=== PATIENT | female | born 1965 | race Caucasian/White ===

== ENCOUNTER → 2020-07-15 11:39 | Outpatient (BNVA) | payer MEDICAID, SELFPAY | PROVIDERS: PCP Nurse Practitioner Family; Referring Provider Nurse Practitioner Family; Visit Provider Nurse Practitioner Gerontology | DX: Z76.89 Persons encountering health services in other specified circumstances (principal) ==

== ENCOUNTER 2020-09-09 11:06 | Emergency (ER) | payer MEDICAID, SELFPAY ==
[2020-09-09 11:13] VITALS: BP 105/66; PULSE 75; RESP 15; TEMP 36.3; O2SAT 99; BMI 47.0
--- NOTE | 2020-09-09 11:26 | ECG_ITS ---
Test Reason : WEAKNESS Blood Pressure : / mmHG Vent. Rate : 077 BPM Atrial Rate : 077 BPM P-R Int : 166 ms QRS Dur : 084 ms QT Int : 424 ms P-R-T Axes : 056 008 008 degrees QTc Int : 479 ms Normal sinus rhythm Normal ECG No previous ECGs available Referred By: Luz Meade Electronically Signed By:Tommy Gautam
--- NOTE | 2020-09-09 11:26 | XR_ITS ---
EXAMINATION: XR CHEST CLINICAL INFORMATION: Weakness. COMPARISON: Chest radiographs 05/23/2020, 02/10/2019 TECHNIQUE: Portable upright AP view of the chest was obtained. FINDINGS: There are low lung volumes with inspiration to the seventh posterior ribs. There are hypoventilatory changes at the bases and faint increased attenuation lower zones most likely related to overlying soft tissues. There is no lobar or segmental airspace consolidation or definite groundglass opacity or effusion. Prominent cardiopericardial silhouette is similar to prior exams. The hilar and mediastinal contours and bony structures are unremarkable. XR/XR chest 1V IMPRESSION: Low lung volumes. Lungs grossly clear.
--- NOTE | 2020-09-09 11:31 | ED.WEAKNESS ---
HPI - Weakness General Chief complaint: Weakness Stated complaint: lethargy Time Seen by Provider: 09/09/20 11:17 Source: patient Mode of arrival: EMS Limitations: no limitations History of Present Illness HPI Narrative: 55 yo female with past medical history of anxiety, asthma, depression, Diabetes mellitus type 2, epilepsy, hypertension, gender dysphoria, tremor, hyperlipidemia, morbid obesity, VELASQUEZ on CPAP, anxiety here with complaints of lethargy. Per nurse, the LOADER OPERATOR/GROUND LEADER went to visit the patient this morning. The patient ambulated to open the door for her. The LOADER OPERATOR/GROUND LEADER noted the patient to be lethargic and checked her blood pressure and it was 80/60. She called EMS who checked the patient's blood pressure and it was 90/60. The patient tells me she feels malaise and lethargic. She denies any other complaints. MD Complaint: generalized weakness and lack of energy Onset (ago): day(s) Duration: constant Location: generalized Migration: none Severity: mild Relieving factors: none Exacerbating factors: none Associated symptoms: denies other symptoms Related Data Home Medications Medication Instructions Recorded Confirmed albuterol sulfate [Proventil HFA] 1 puff INHALATION QID PRN 07/14/20 07/14/20 aripiprazole 5 mg PO BID 07/14/20 07/14/20 atorvastatin 40 mg PO DAILY 07/14/20 07/14/20 cholecalciferol (vitamin D3) 50 mcg PO DAILY 07/14/20 07/14/20 [Vitamin D3] clonazepam 0.5 mg PO BID 07/14/20 07/14/20 fluticasone propionate [Flovent] 1 puff INHALATION Q12H 07/14/20 07/14/20 hydrochlorothiazide 25 mg PO DAILY 07/14/20 07/14/20 lamotrigine 100 mg PO BID 07/14/20 07/14/20 lidocaine 1 patch TOPICAL DAILY 07/14/20 07/14/20 lisinopril 20 mg PO DAILY 07/14/20 07/14/20 [id number] acid 1 tab PO DAILY 07/14/20 07/14/20 [Multi Complete with Iron] prazosin 2 mg PO BEDTIME 07/14/20 07/14/20 topiramate 100 mg PO BID 07/14/20 07/14/20 Previous Rx's Medication Instructions Recorded insulin degludec 200 unit/mL (3 20 unit SUBCUT DAILY #9 ml 08/02/20 mL) subcutaneous pen metformin 1,000 mg tablet 1,000 mg PO BID #60 tab 08/11/20 cefuroxime axetil 250 mg PO BID 7 Days #14 tab 09/09/20 Allergies Allergy/AdvReac Type Severity Reaction Status Date / Time No Known Allergies Allergy Verified 08/09/20 15:11 Review of Systems Review of Systems: Yes all other systems are reviewed and are negative Constitutional: Constitutional: Reports no additional constitutional complaints, Denies body ache(s), Denies chills, Denies fever(s), Denies headache(s) and Reports weakness Eyes: Eyes: Reports no additional eye complaints and Denies change in vision ENT: Reports system reviewed and no additional complaints, except as documented, Denies dizziness, Denies headache(s), Denies nasal congestion, Denies nasal discharge and Denies neck pain Cardiovascular: Cardiovascular: Reports no additional cardiovascular complaints, Denies chest pain, Denies leg edema and Denies dyspnea Respiratory: Respiratory: Reports no additional respiratory complaints, Denies cough and Denies dyspnea Gastrointestinal: Gastrointestinal: Reports no additional gastrointestinal complaints, Denies abdominal pain, Denies diarrhea, Denies nausea and Denies vomiting Genitourinary: Genitourinary: Reports no additional female genitourinary complaints and Denies urinary incontinence Musculoskeletal: Musculoskeletal: Reports no additional musculoskeletal complaints, Denies back pain, Denies arthralgias, Denies joint swelling, Denies neck pain, Denies numbness and Denies tingling Integumentary/Breasts: Skin/Breast: Reports system reviewed and no additional complaints, except as docu and Denies rash Neurologic: Reports system reviewed and no additional complaints, except as documented, Denies Abnormal speech present, Denies dizziness, Denies headache(s), Denies numbness, Denies tingling and Reports weakness PMFSH Past Medical History Attestation statement: The following information was validated with the patient. Source: old records reviewed and nursing notes reviewed Medical History Anxiety Asthma Depression Diabetes mellitus type 2, controlled, without complications Epilepsy Essential hypertension Gender dysphoria History of tremor Hyperlipidemia LDL goal <100 Hypertension Illiterate Morbid obesity due to excess calories VEALSQUEZ on CPAP Panic attacks Surgical History History of esophagogastroduodenoscopy (EGD) Hx of laparoscopic gastric banding Family History Family History Father CVD (cardiovascular disease) Mother No problems noted. Social History Social History Smoking Status: Never smoker Use of substances other than those prescribed or required for medical reasons: No Advance Directives: No Advance Directives Information Provided: No Physical Exam Vital Signs: Vital Signs: Last Vital Signs Temp 97.4 F 09/09/20 11:13 Pulse 78 09/09/20 15:25 Resp 18 09/09/20 15:25 BP 114/72 09/09/20 15:25 Pulse Ox 98 09/09/20 15:25 Body Mass Index 47.0 Const: General: cooperative, healthy appearing, comfortable and no acute distress Orientation/consciousness: patient oriented x3 Limitations: no limitations HENMT: Head: Yes normal to inspection Ears: hearing grossly normal bilaterally General nose exam: Normal external nose present Face and sinus: Yes normal facial exam Mouth: Normal oral and palatal mucosa present Throat: Yes posterior oropharynx normal Eyes: General: appearance normal, both eyes and all related structures Pupils: Equal, round and reactive pupils present Neck: Neck: Yes normal visual inspection Chest: Chest palpation & inspection: normal inspection of the chest Resp: Effort & Inspection: normal respiratory effort Auscultation: clear to auscultation bilaterally Cardio: Rate: regular rate Rhythm: regular rhythm Peripheral pulses: Peripheral pulses 2+ throughout GI: Inspection: Yes normal to inspection Palpation (GI): Soft to palpation and nontender Auscultation: normal bowel sounds Back/Spine/Pelvis: Thoracic/Lumbar Spine: thoracic and lumbar spine normal to inspection Skin: General skin exam: no rashes or lesions noted Neuro: General: patient oriented x3, no focal motor deficits, normal sensation to monofilament and Unable to assess gait Cranial nerves: Yes CN's II-XII intact bilaterally, Yes Equal, round and reactive pupils present, Yes Bilaterally intact EOM present, Yes Nystagmus not present, Yes Normal facial strength present and Yes Midline tongue present Cognition (Neuro): normal cognition Speech: No Abnormal speech present Gait exam (Neuro): Unable to assess gait Motor exam (neuro): 5/5 motor strength present throughout (4/5 strength in all 4 extremities. Diffuse weakness) and Normal motor muscle tone present throughout Extrem: General: Yes normal to inspection, Yes no pedal edema and Yes no calf tenderness Course Course Course Narrative: 55-year-old female here with lethargy, generalized weakness times several days. Noted to be hypotensive by LOADER OPERATOR/GROUND LEADER 80/60 at home. Normotensive here. No other complaints. Normal neurological exam with no deficits. Will check labs, EKG, chest x-ray, UA, COVID test. 1430-labs, EKG, chest x-ray, COVID test all unremarkable. UA is pending. Orthostatics were negative. Nursing spoke to the LOADER OPERATOR/GROUND LEADER. Apparently there have been some medication changes for some of her medications they think this may be related. She has been this way for several days to weeks. Unclear which medications have been changed and the patient is unable to provide a clear history. Her episode of hypotension may be secondary to her being overmedicated at home. This is not from an underlying infection. 1600-UA is consistent with a UTI. Patient ambulated to the bathroom with a steady gait. She is alert and answering questions. Recommended follow-up with her primary care doctor as her medications might need to be adjusted further. Reviewed worrisome signs and symptoms and when to return to the emergency department. Comfortable discharge home. MDM - Weakness Medical Records Attestation: I reviewed the patient's medical records. Lab Data Attestation: I reviewed the patient's lab results. Result diagrams: 09/09/20 11:35 09/09/20 11:35 Labs: Lab Results 09/09/20 09/09/20 09/09/20 Range/Units 11:35 11:35 11:35 WBC 9.3 (4.8-10.8) X10*3/uL RBC 4.30 (4.20-5.50) X10*6/uL Hgb 11.5 L (12.0-16.0) g/dl Hct 37.2 (37-47) % MCV 86.5 (80-98) fL MCH 26.7 L (27.0-33.0) pg MCHC 30.9 L (31.0-35.0) g/dl RDW 13.2 (11.0-16.0) % Plt Count 347 (160-400) X10*3/uL MPV 9.6 (9.4-12.3) fL Immature Gran % (Auto) 0.5 H (0.0-0.4) % Neut % (Auto) 65.1 (45-73) % Lymph % (Auto) 24.5 (20-40) % [place] % (Auto) 6.5 (2-11) % Eos % (Auto) 3.0 (0-4) % Baso % (Auto) 0.4 (0-2) % Lymph # (Auto) 2.3 (1.2-4.9) X10*3/uL [place] # (Auto) 0.6 (0.1-1.2) X10*3/uL Eos # (Auto) 0.3 (0.0-0.4) X10*3/uL Baso # (Auto) 0.0 (0.0-0.2) X10*3/uL Abs Immat Gran (auto) 0.05 H (0.00-0.03) X10*3/uL Absolute Neuts (auto) 6.0 (2.0-8.3) X10*3/uL Absolute Nucleated RBC 0.000 (0.0-0.012) X10*3/uL Nucleated RBC % (auto) 0.0 (0.0-0.2) /100WBC PT 11.6 (10.8-13.0) SEC INR 1.0 (0.9-1.1) Sodium 141 (135-145) mmol/L Potassium 4.8 (3.3-5.1) mmol/l Chloride 102 (96-108) mmol/L Carbon Dioxide 26 (22-29) mmol/L Anion Gap 18 (12-20) BUN 21 H (9-16) mg/dL Creatinine 1.30 (0.5-1.4) mg/dL Estim Creat Clear Calc 53.5 Estimated GFR 42 Random Glucose 209 H (60-115) mg/dL Calcium 8.9 (8.4-10.2) mg/dL Magnesium 2.0 (1.6-2.6) mg/dL Urine Color Urine Appearance Urine pH (5.0-8.0) Ur Specific [place] (1.005-1.025) Urine Protein (NEG-TRACE) MG/DL Urine Glucose (UA) (NEG) MG/DL Urine Ketones (NEG) MG/DL Urine Blood (NEG) Urine Nitrite (NEG) Ur Leukocyte Esterase (NEG) Urine RBC (0) /HPF Urine WBC (0-4) /HPF Ur Squamous Epith Cells /LPF Urine Bacteria /LPF Coronavirus (PCR) (Negative) Influenza Type A (PCR) (Negative) Influenza Type B (PCR) (Negative) RSV RNA Qual (PCR) (Negative) 09/09/20 09/09/20 Range/Units 11:35 15:27 WBC (4.8-10.8) X10*3/uL RBC (4.20-5.50) X10*6/uL Hgb (12.0-16.0) g/dl Hct (37-47) % MCV (80-98) fL MCH (27.0-33.0) pg MCHC (31.0-35.0) g/dl RDW (11.0-16.0) % Plt Count (160-400) X10*3/uL MPV (9.4-12.3) fL Immature Gran % (Auto) (0.0-0.4) % Neut % (Auto) (45-73) % Lymph % (Auto) (20-40) % [place] % (Auto) (2-11) % Eos % (Auto) (0-4) % Baso % (Auto) (0-2) % Lymph # (Auto) (1.2-4.9) X10*3/uL [place] # (Auto) (0.1-1.2) X10*3/uL Eos # (Auto) (0.0-0.4) X10*3/uL Baso # (Auto) (0.0-0.2) X10*3/uL Abs Immat Gran (auto) (0.00-0.03) X10*3/uL Absolute Neuts (auto) (2.0-8.3) X10*3/uL Absolute Nucleated RBC (0.0-0.012) X10*3/uL Nucleated RBC % (auto) (0.0-0.2) /100WBC PT (10.8-13.0) SEC INR (0.9-1.1) Sodium (135-145) mmol/L Potassium (3.3-5.1) mmol/l Chloride (96-108) mmol/L Carbon Dioxide (22-29) mmol/L Anion Gap (12-20) BUN (9-16) mg/dL Creatinine (0.5-1.4) mg/dL Estim Creat Clear Calc Estimated GFR Random Glucose (60-115) mg/dL Calcium (8.4-10.2) mg/dL Magnesium (1.6-2.6) mg/dL Urine Color YELLOW Urine Appearance HAZY Urine pH 6.0 (5.0-8.0) Ur Specific [place] >= 1.030 H (1.005-1.025) Urine Protein NEG (NEG-TRACE) MG/DL Urine Glucose (UA) NEG (NEG) MG/DL Urine Ketones NEG (NEG) MG/DL Urine Blood NEG (NEG) Urine Nitrite POS H (NEG) Ur Leukocyte Esterase NEG (NEG) Urine RBC 0 (0) /HPF Urine WBC 10-14 H (0-4) /HPF Ur Squamous Epith Cells 1+ /LPF Urine Bacteria 2+ /LPF Coronavirus (PCR) NEGATIVE (Negative) Influenza Type A (PCR) NEGATIVE (Negative) Influenza Type B (PCR) NEGATIVE (Negative) RSV RNA Qual (PCR) NEGATIVE (Negative) Imaging Data Chest x-ray: Attestation: I personally reviewed and interpreted this imaging study as follows: Radiologist's impression: CLINICAL INFORMATION: Weakness. COMPARISON: Chest radiographs 05/23/2020, 02/10/2019 TECHNIQUE: Portable upright AP view of the chest was obtained. FINDINGS: There are low lung volumes with inspiration to the seventh posterior ribs. There are hypoventilatory changes at the bases and faint increased attenuation lower zones most likely related to overlying soft tissues. There is no lobar or segmental airspace consolidation or definite groundglass opacity or effusion. Prominent cardiopericardial silhouette is similar to prior exams. The hilar and mediastinal contours and bony structures are unremarkable. XR/XR chest 1V IMPRESSION: Low lung volumes. Lungs grossly clear. ECG Data Attestation: I personally reviewed and interpreted this ECG as follows: ECG interpretation date: 01/08/21 ECG interpretation time: 11:44 Interpretation: Normal sinus rhythm, rate of 77, normal MN, normal QRS, normal QT Discharge Plan Discharge Clinical Impression: Weakness UTI (urinary tract infection) Qualifiers: Urinary tract infection type: acute cystitis Hematuria presence: without hematuria Qualified Code(s): N30.00 - Acute cystitis without hematuria Patient Disposition: Home, Self-Care Instructions: Urinary Tract Infection in Women (ED), Weakness (ED) Additional Instructions: There have been reports that her medications have been adjusted recently. This may be contributing to her weakness. It is recommended that you follow-up with a primary care doctor to discuss her medications as this might need to be adjusted. Start her antibiotics tomorrow morning for her UTI Increase fluids, rest Change positions slowly Prescriptions: New cefuroxime axetil 250 mg tablet 250 mg PO BID 7 Days Qty: 14 RF: 0 No Action Tresiba FlexTouch U-200 200 unit/mL (3 mL) insulin pen 20 unit SUBCUT DAILY Qty: 9 RF: 2 metformin 1,000 mg tablet 1,000 mg PO BID Qty: 60 RF: 2 lisinopril 20 mg Tablet 20 mg PO DAILY RF: 0 atorvastatin 40 mg Tablet 40 mg PO DAILY RF: 0 clonazepam 0.5 mg Tablet 0.5 mg PO BID RF: 0 lidocaine 5 % Adhesive Patch,Medicated 1 patch TOPICAL DAILY RF: 0 hydrochlorothiazide 25 mg Tablet 25 mg PO DAILY RF: 0 albuterol sulfate [Proventil HFA] 90 mcg/actuation Hfa Aerosol Inhaler 1 puff INHALATION QID PRN (Reason: Wheezing) RF: 0 topiramate 100 mg Tablet 100 mg PO BID RF: 0 lamotrigine 100 mg Tablet 100 mg PO BID RF: 0 prazosin 2 mg Capsule 2 mg PO BEDTIME RF: 0 Flovent 110 mcg/actuation Hfa Aerosol Inhaler 1 puff INHALATION Q12H RF: 0 aripiprazole 5 mg Tablet 5 mg PO BID RF: 0 cholecalciferol (vitamin D3) [Vitamin D3] 50 mcg (2,000 unit) Capsule 50 mcg PO DAILY RF: 0 Multi Complete with Iron 18-400 mg-mcg Tablet 1 tab PO DAILY RF: 0 Referrals: [facility] [Primary Care Provider] - 2 days
[2020-09-09 11:48] LABS: Basophils Percent Auto 0.4 % (0-2); Eosinophils Absolute Auto 0.3 X10*3/uL (0.0-0.4); Hematocrit 37.2 % (37-47); Hemoglobin 11.5 g/dl (12.0-16.0); Imm Gran Abs Auto 0.05 X10*3/uL (0.00-0.03); Imm Gran Pct Auto 0.5 % (0.0-0.4); Lymphocytes Absolute Auto 2.3 X10*3/uL (1.2-4.9); Lymphocytes Percent Auto 24.5 % (20-40); MANUAL DIFF FLAG NO; Mean Corpuscular HGB Conc 30.9 g/dl (31.0-35.0); Mean Corpuscular Hemoglobin 26.7 pg (27.0-33.0); Mean Corpuscular Volume 86.5 fL (80-98); Mean Platelet Volume 9.6 fL (9.4-12.3); Monocytes Absolute Auto 0.6 X10*3/uL (0.1-1.2); Monocytes Percent Auto 6.5 % (2-11); Neutrophils Percent Auto 65.1 % (45-73); Platelet Count 347 X10*3/uL (160-400); Red Cell Distribution Width 13.2 % (11.0-16.0); White Blood Count 9.3 X10*3/uL (4.8-10.8)
[2020-09-09 11:53] VITALS: BP 96/57; PULSE 78
[2020-09-09 11:54] VITALS: BP 114/73; PULSE 83
[2020-09-09] MEDS: 0.9 % Sodium Chloride 1,000 ML 999 ML IVCONT (11:56)
[2020-09-09 12:00] VITALS: BP 114/73; PULSE 78; RESP 16; O2SAT 96
[2020-09-09 12:02] LABS: Prothrombin Time 11.6 SEC (10.8-13.0)
[2020-09-09 12:24] LABS: Anion Gap 18 (12-20); Blood Urea Nitrogen 21 mg/dL (9-16); Calcium 8.9 mg/dL (8.4-10.2); Carbon Dioxide 26 mmol/L (22-29); Chloride 102 mmol/L (96-108); Creatinine Clr Calc Pharmacy 53.5; Estimated Glomerular Filt Rate 42; Glucose Random 209 mg/dL (60-115); Potassium 4.8 mmol/l (3.3-5.1); Sodium 141 mmol/L (135-145)
[2020-09-09 12:40] LABS: Influenza A PCR NEGATIVE (Negative); Influenza B PCR NEGATIVE (Negative); Resp Syncy Virus RNA Qual PCR NEGATIVE (Negative); SARS COV2 PCR INHOUSE NEGATIVE (Negative)
[2020-09-09 13:21] VITALS: BP 94/53; PULSE 72; RESP 16; O2SAT 96
--- NOTE | 2020-09-09 13:21 | PC.NURSE ---
COMMUNITY LIAISON Mike Rodrigues contact [phone]
--- NOTE | 2020-09-09 15:23 | PC.NURSE ---
Ambulatory with tech, slow but steady on feet. Urine to be collected
[2020-09-09 15:25] VITALS: BP 114/72; PULSE 78; RESP 18; O2SAT 98
[2020-09-09 15:37] LABS: Glucose Urine UA NEG (NEG); Leukocyte Esterase Urine NEG (NEG); Nitrite Urine POS (NEG); Specific Gravity - Urine >= 1.030 (1.005-1.025); Urine Blood NEG (NEG); Urine Ketones NEG (NEG); Urine Protein NEG (NEG-TRACE)
[2020-09-09 15:38] LABS: Appearance Urine HAZY; Color Urine YELLOW
[2020-09-09 15:49] LABS: Bacteria Urine 2+ /LPF; RBC Urine 0 /HPF (0); Squamous Epithelial Cell Urine 1+ /LPF
[2020-09-13 09:21] LABS: Glucose, Whole Blood 220 mg/dL (60-115)
== END 2020-09-09 16:48 | disposition home or self-care (01) ==
PROVIDERS: Nurse Practitioner Family; Emergency Provider Emergency Medicine
DX: N30.00 Acute cystitis without hematuria (principal); R53.1 Weakness; I10 Essential (primary) hypertension; Z20.828 Contact with and (suspected) exposure to other viral communicable diseases; Z79.899 Other long term (current) drug therapy
CPT/HCPCS: 0241U; 36415; 71045; 80048; 81001; 82947; 83735; 85025; 85610; 87086; 87088; 87186; 93005; 96360; 99284

== ENCOUNTER → 2020-12-12 11:57 | Outpatient (BNVA) | payer MEDICAID, SELFPAY | PROVIDERS: PCP Nurse Practitioner Family; Referring Provider Nurse Practitioner Family; Visit Provider Nurse Practitioner Gerontology ==

== ENCOUNTER 2021-01-06 16:16 | Outpatient (REF) | payer MEDICAID, SELFPAY ==
--- NOTE | ~2021-01-06 | XR_ITS ---
EXAMINATION: XR LUMBOSACRAL SPINE WITH OBLIQUES CLINICAL INFORMATION: Back pain COMPARISON: None TECHNIQUE: AP, both oblique, and lateral views of the lumbar spine. Lateral view of the lumbosacral junction. FINDINGS: Bone alignment is normal. No fracture or dislocation is seen. There is multilevel degenerative spondylosis. There is degenerative disc disease at L4-L5 and L5-S1. There is a lower lumbar spine facet arthritis. No pars defect is seen. There is a gastric lap band. XR/XR lumbar spine 4V min IMPRESSION: Degenerative changes.
[2021-01-06 17:29] LABS: Cholesterol 276 mg/dL; HDL Cholesterol 44 mg/dL; Triglycerides 429 mg/dL
[2021-01-06 17:43] LABS: B Type Natriuretic Peptide < 10 pg/mL (<100)
[2021-01-07 05:32] LABS: LDL Cholesterol Direct 162 mg/dL (<100)
[2021-01-07 06:56] LABS: Estimated Average Glucose 243 mg/dL; Hemoglobin A1c % 10.1 %
== END 2021-01-06 16:17 | disposition home or self-care (01) ==
LOC: HO.LAB 16:16
PROVIDERS: Nurse Practitioner Gerontology; PCP Registered Nurse; Visit Provider Internal Medicine
DX: M54.9 Dorsalgia, unspecified (principal); E11.9 Type 2 diabetes mellitus without complications
CPT/HCPCS: 36415; 72110; 80061; 83036; 83721; 83880; 84550

== ENCOUNTER → 2021-01-16 13:40 | Outpatient (BNVA) | payer MEDICAID, SELFPAY | PROVIDERS: PCP Registered Nurse; Visit Provider Nurse Practitioner Gerontology ==

== ENCOUNTER → 2021-02-13 14:16 | Outpatient (BNVA) | payer MEDICAID, SELFPAY | PROVIDERS: PCP Registered Nurse; Visit Provider Dietitian, Registered | DX: E11.65 Type 2 diabetes mellitus with hyperglycemia (principal) | CPT/HCPCS: 97802 ==

== ENCOUNTER → 2021-03-14 13:58 | Outpatient (REF) | payer MEDICAID, SELFPAY ==
--- NOTE | 2021-03-14 14:00 | CA_ITS ---
Transthoracic Echocardiogram Patient (Last, First, Middle): Hilda Mcmahan, Gender: Female Date of : 1965 Age: 55 Procedure Date: 03/14/2021 Procedure Type: Transthoracic Echocardiogram Location: OP Height: 152.4 cm Weight: 129.28 kg BSA: 2.17 m2 Heart Rate: bpm BP: 106 / 68 mmHg Consultant Intern: Referring MD: Oz Sahni MD Symptoms: ORTHOPNEA, LEG SWELLING Study Quality: Fair ECG Rhythm: Sinus Conclusions: - The left ventricular systolic function is normal. The visually estimated ejection fraction is between 60-65%. - No obvious valvular pathology seen on this study. Findings Procedure Information Contrast agent, definity, is being given per protocol without apparent complications. The patient receives contrast. Left Ventricle Normal left ventricular cavity size. The left ventricular systolic function is normal. The visually estimated ejection fraction is between 60-65%. The calculated ejection fraction is 64% by biplane method. There is no evidence of regional wall motion abnormalities. Diastolic function is normal for age. Right Ventricle Normal right ventricular cavity size and systolic function. Atria Both atria are normal in size. Aortic Valve There is a normal trileaflet aortic valve. There is no aortic valve stenosis. There is no aortic valve regurgitation. Mitral Valve The mitral valve appears normal. There is no mitral valve regurgitation. There is no mitral valve stenosis. Pulmonic Valve The pulmonic valve was not well visualized. Tricuspid Valve There is trace tricuspid valve regurgitation. The pulmonary artery systolic pressure is normal. Great Vessels The asc aorta and aortic arch are normal in size. Venous The inferior vena cava was not well visualized. Pericardium/Pleural There is no evidence of pericardial effusion. Prior Study Comparison No prior study available for comparison. Recommendations, Care & Conclusions No obvious valvular pathology seen on this study. Measurements 2D Linear Measurements RVIDd: 2.59 RVIDd Index: 1.19 IVSd: 0.95 0.6-0.9/0.6-1.0 cm LVIDd: 4.90 3.9-5.3/4.2-5.9 cm LVIDd Index: 2.26 2.4-3.2/2.2-3.1 cm/m2 LVIDs: 3.59 2.0-3.6 cm LVPWd: 1.30 0.7-1.1 cm Ao Root: 3.10 2.1-3.5 cm LA Diam: 3.40 2.7-3.8/3.0-4.0 cm LAIDs Index: 1.57 1.5-2.3 cm/m2 LV Mass: 257.31 67-162/88-224 g LV Mass Index: 118.58 43-95/49-115 g/m2 LVOT Diam: 2.30 3.0+(-)1.3 cm 2D Systolic Function EF 4C: 65.80 >55% EF 2C: 62.10 >55% EF BiP: 64.40 >55% Mitral Valve MV Pk E: 0.50 MV PK A: 0.56 MV Decel Time: 202.00 E/A: 0.90 E'Lateral: 9.14 E'Medial: 5.44 E/E' Med: 9.10 E/E' Lat: 5.40 Aortic Valve AoV Pk Ridge: 1.31 AoV Mn Ridge: 0.91 AoV VTI: 0.25 AoV Pk Grad: 7.00 Aov Mn Grad: 4.00 FLIP Cont.VTI: 3.66 LVOT LVOT Pk Ridge: 1.03 LVOT Mn Ridge: 0.67 LVOT VTI: 0.22 LVOT Pk Grad: 4.00 LVOT Mn Grad: 2.00 LVOT Diam: 2.30 LVOT Area: 4.15 Diastolic Function MV Pk E: 0.50 MV Pk A: 0.56 E/A: 0.90 E'Medial: 5.44 E/E' Med: 9.10 E' Laterial: 9.14 E/E' Lat: 5.40 Tricuspid Valve TR Pk Ridge: 2.52 TR Pk Grad: 25.00 RA Press: 3.00 RVSP: 28.00 Great Vessels Aorta Ao Root-2D: 3.10 2.0-3.7 cm Ao Asc: 3.00 2.1-3.4 cm Ao Arch: 2.70 Updated in Other Vendor System with Status of Final Baldo Pereyra MD electronically signed on 03/15/2021 12:29:15 PM with status of Final
== END ==
LOC: HO.CARD 13:58
PROVIDERS: Visit Provider Internal Medicine
DX: R06.01 Orthopnea (principal)
CPT/HCPCS: 93306; Q9957

== ENCOUNTER 2021-03-14 15:37 | Emergency (ER) | payer MEDICAID, SELFPAY ==
--- NOTE | ~2021-03-14 | XR_ITS ---
EXAMINATION: XR LUMBAR SPINE XR RIGHT HIP WITH AP PELVIS CLINICAL INFORMATION: Pain. COMPARISON: None TECHNIQUE: AP and frog-leg lateral views of the right hip and an AP view of the pelvis. 3 views of the lumbosacral spine. FINDINGS: Lumbar spine: There is moderate to severe degenerative disc disease in the lower lumbar spine at L4-5 and L5-S1 with prominent osteophytes, loss of vertebral disc height, and vacuum phenomenon. More mild degenerative disc disease is present at other levels in the lower thoracic and lumbar spine. There is prominent facet arthropathy at L5-S1. No acute fractures. Osteoarthritis is present in the SI joints. Laparoscopic gastric band is partially imaged on this study. Pelvis and right hip: Mild osteoarthritis in the hips is characterized by marginal osteophytes and nonuniform joint space narrowing. No fracture or malalignment. Enthesopathic spurring is present at the anterior superior iliac spines and at the greater trochanters. Soft tissues are unremarkable. No osseous lesions. XR/XR hip RT w PEL1V IMPRESSION: Moderate to severe degenerative spondylosis in the lower lumbar spine. No acute osseous findings in the lumbar spine and pelvis/hips. Mild osteoarthritis in the hips.
--- NOTE | ~2021-03-14 | XR_ITS ---
EXAMINATION: XR LUMBAR SPINE XR RIGHT HIP WITH AP PELVIS CLINICAL INFORMATION: Pain. COMPARISON: None TECHNIQUE: AP and frog-leg lateral views of the right hip and an AP view of the pelvis. 3 views of the lumbosacral spine. FINDINGS: Lumbar spine: There is moderate to severe degenerative disc disease in the lower lumbar spine at L4-5 and L5-S1 with prominent osteophytes, loss of vertebral disc height, and vacuum phenomenon. More mild degenerative disc disease is present at other levels in the lower thoracic and lumbar spine. There is prominent facet arthropathy at L5-S1. No acute fractures. Osteoarthritis is present in the SI joints. Laparoscopic gastric band is partially imaged on this study. Pelvis and right hip: Mild osteoarthritis in the hips is characterized by marginal osteophytes and nonuniform joint space narrowing. No fracture or malalignment. Enthesopathic spurring is present at the anterior superior iliac spines and at the greater trochanters. Soft tissues are unremarkable. No osseous lesions. XR/XR lumbar spine 2-3V IMPRESSION: Moderate to severe degenerative spondylosis in the lower lumbar spine. No acute osseous findings in the lumbar spine and pelvis/hips. Mild osteoarthritis in the hips.
--- NOTE | ~2021-03-14 | XR_ITS ---
EXAMINATION: XR KNEE, RIGHT CLINICAL INFORMATION: Right knee pain COMPARISON: None TECHNIQUE: 5 views of the right knee. FINDINGS: Severe tricompartmental degenerative change present most marked in the medial compartment and patellofemoral compartment. Significant joint space narrowing with sclerosis and osteophytes present. No joint effusion or fracture is seen. XR/XR knee RT 4V IMPRESSION: Tricompartmental degenerative changes present as described above. No acute injury or effusion.
[2021-03-14 17:00] VITALS: BP 133/81; PULSE 74; RESP 18; TEMP 36.1; O2SAT 99; BMI 54.6
[2021-03-14 18:22] LABS: MANUAL DIFF FLAG NO
[2021-03-14] MEDS: Acetaminophen 325 MG TABLET 650 MG PO (18:24)
[2021-03-14] MEDS: Ibuprofen 800 MG TABLET PO (18:25)
[2021-03-14 18:46] LABS: Basophils Absolute Auto 0.1 X10*3/uL (0.0-0.2); Basophils Percent Auto 0.4 % (0-2); Eosinophils Absolute Auto 0.5 X10*3/uL (0.0-0.4); Eosinophils Percent Auto 3.7 % (0-4); Hematocrit 40.8 % (37-47); Hemoglobin 12.5 g/dl (12.0-16.0); Imm Gran Abs Auto 0.05 X10*3/uL (0.00-0.03); Imm Gran Pct Auto 0.4 % (0.0-0.4); Lymphocytes Absolute Auto 3.4 X10*3/uL (1.2-4.9); Mean Corpuscular HGB Conc 30.6 g/dl (31.0-35.0); Mean Corpuscular Hemoglobin 25.2 pg (27.0-33.0); Mean Corpuscular Volume 82.3 fL (80-98); Mean Platelet Volume 10.7 fL (9.4-12.3); Monocytes Absolute Auto 0.8 X10*3/uL (0.1-1.2); Monocytes Percent Auto 6.3 % (2-11); Neutrophils Absolute Auto 7.4 X10*3/uL (2.0-8.3); Neutrophils Percent Auto 61.2 % (45-73); Platelet Count 355 X10*3/uL (160-400); Red Blood Count 4.96 X10*6/uL (4.20-5.50); Red Cell Distribution Width 14.5 % (11.0-16.0); White Blood Count 12.1 X10*3/uL (4.8-10.8)
[2021-03-14 18:46] LABS: Alanine Aminotransferase 45 U/L (0-31); Albumin Level 4.4 g/dL (3.5-5.0); Alkaline Phosphatase 70 U/L (39-117); Anion Gap 20 (12-20); Aspartate Amino Transferase 50 U/L (5-31); Bilirubin Total 0.4 mg/dL (0.0-1.0); Blood Urea Nitrogen 26 mg/dL (9-16); Carbon Dioxide 21 mmol/L (22-29); Chloride 105 mmol/L (96-108); Creatinine Clr Calc Pharmacy 54.7; Estimated Glomerular Filt Rate 39; Glucose Random 161 mg/dL (60-115); Lipase 36 U/L (8-78); Potassium 4.7 mmol/L (3.3-5.1); Sodium 141 mmol/L (135-145); Total Protein 8.1 g/dL (6.5-8.0)
--- NOTE | 2021-03-14 18:54 | ED.LOWEXIN ---
HPI - Extremity Injury (Lower) General Chief Complaint: Extremity Injury, Lower Stated Complaint: leg pain Time Seen by Provider: 03/14/21 15:58 Source: patient and family Mode of arrival: wheelchair Limitations: no limitations History of Present Illness HPI Narrative: 55-year-old female with past medical history of diabetes, hypertension, obesity presents the emergency department with right lower extremity pain /right back pain. Patient states this is been ongoing and progressively getting worse for 3 weeks. Patient admits to some increased urinary frequency and foul-smelling urine. Denies any upper back pain denies any abdominal pain denies known fevers or chills denies chest pain or shortness of breath. States she had difficulty ambulating today thus presented to the ED for assessment. No medications taken prior to arrival for pain. Denies any changes in bowel habits denies any numbness and tingling in the genitals or the legs. Patients denies recent/injury or trauma. Related Data Home Medications Medication Instructions Recorded Confirmed albuterol sulfate [Proventil HFA] 1 puff INHALATION QID PRN 07/14/20 01/16/21 cholecalciferol (vitamin D3) 50 mcg PO DAILY 07/14/20 01/16/21 [Vitamin D3] fluticasone propionate [Flovent] 1 puff INHALATION Q12H 07/14/20 01/16/21 lidocaine 1 patch TOPICAL DAILY 07/14/20 01/16/21 lisinopril 20 2 tab PO DAILY 12/12/20 01/16/21 mg-hydrochlorothiazide 25 mg tablet propranolol 60 mg tablet 60 mg PO BID 12/12/20 01/16/21 acetaminophen 325 mg capsule 325 mg PO Q4H PRN cap 01/16/21 01/16/21 cetirizine 10 mg capsule 10 mg PO DAILY PRN 01/16/21 01/16/21 clonazepam 1 mg tablet 1 mg PO BID 01/16/21 01/16/21 gabapentin 300 mg capsule 300 mg PO BEDTIME 01/16/21 01/16/21 Previous Rx's Medication Instructions Recorded insulin degludec 200 unit/mL (3 20 unit SUBCUT DAILY #9 ml 08/02/20 mL) subcutaneous pen metformin 1,000 mg tablet 1,000 mg PO BID #60 tab 08/11/20 atorvastatin 20 mg tablet 20 mg PO BEDTIME #30 tab 01/16/21 dulaglutide 0.75 mg/0.5 mL 0.75 mg SUBCUT QWEEK #6 ml 01/16/21 subcutaneous pen injector acetaminophen [Tylenol] 650 mg PO Q6H PRN #20 tab 03/14/21 ibuprofen 600 mg PO Q6H PRN #20 tab 03/14/21 Allergies Allergy/AdvReac Type Severity Reaction Status Date / Time No Known Allergies Allergy Verified 12/12/20 14:51 Review of Systems Review of Systems: Constitutional : No Weight loss, No Fever, No Chills, No Night Sweats, No Fatigue, No Malaise ENT/Mouth : No Hearing loss, No Ear Pain, No Nasal Congestion, No Sinus Pain, No Hoarseness, No sore throat, No Rhinorrhea, No Swallowing Difficulty Eyes: No Eye Pain, No Swelling, No Redness, No Foreign Body, No Discharge, No Vision Changes Cardiovascular : No Chest Pain, No SOB, No Dyspnea on Exertion, No Orthopnea, No Edema, No Palpitations Respiratory : No Cough, No Sputum, No Wheezing, No Smoke Exposure, No Dyspnea Gastrointestinal : No Nausea, No Vomiting, No Diarrhea, No Constipation, No abdominal Pain, No Hematochezia, No Melena Genitourinary : no irregular bleeding, + Dysuria, + Urinary Frequency, No Hematuria, No Urinary Incontinence, No Urgency, No Flank Pain, No Urinary Flow Changes, No Hesitancy Musculoskeletal : + joint pain, + Myalgias, No Joint Swelling, + back pain Skin : No Skin Lesions, No rash Neuro : No Weakness, No Numbness, No Paresthesias, No Loss of Consciousness, No Dizziness, No Headache Psych : No Anxiety/Panic, No Depression, No SI/HI/AH/VH, No Social Issues, Heme/Lymph: No Bruising, No Bleeding,No Lymphadenopathy Endocrine : No Polyuria, No Polydipsia, No Temperature Intolerance [facility] Past Medical History Attestation statement: The following information was validated with the patient. Source: old records reviewed and obtained from family Medical History Anxiety Asthma Depression Diabetes mellitus type 2, controlled, without complications Epilepsy Essential hypertension Gender dysphoria History of tremor Hyperlipidemia LDL goal <100 Hypertension Illiterate Morbid obesity due to excess calories VELASQUEZ on CPAP Panic attacks Surgical History History of esophagogastroduodenoscopy (EGD) Hx of laparoscopic gastric banding Family History Family History Father CVD (cardiovascular disease) Mother No problems noted. Social History Social History Household Members: None Are you a primary home health care respiratory therapist to a significant other at home: No Do you presently have visiting nurse or other home services: Yes Advance Directives: No Advance Directives Information Provided: Yes Physical Exam Vital Signs: Vital Signs: Last Vital Signs Temp 97.0 F 03/14/21 17:00 Pulse 74 03/14/21 17:00 Resp 18 03/14/21 17:00 BP 133/81 03/14/21 17:00 Pulse Ox 99 03/14/21 17:00 Body Mass Index 54.6 vital signs have been reviewed as normal and appeared to be correct. Blood pressure normal. Heart rate normal. Respiration rate normal. Temperature normal. Oxygen saturation normal. Appearance: Alert. Oriented X3. Mild acute distress. Head: Normal external exam. Normocephalic. Atraumatic. No Negrete signs noted. No raccoon eyes noted Eyes: Conjunctiva and sclera normal. ENT: EAC normal. Moist mucous membranes. No drooling noted. No muffled voice noted. Neck: Normal inspection. Neck supple. FROM. No meningeal signs. CVS: Pulses normal throughout. Respiratory: No respiratory distress. Painless inspiration. No accessory muscle usage noted Abdomen: No visible injury noted. Abdomen soft nondistended nontender Back: Full range of motion noted. mild right-sided paraspinal tenderness no CVA tenderness no midline tenderness noted Skin: Skin warm and dry. Normal skin color. Normal skin turgor. Extremities: No lower extremity edema. limited range of motion of the right lower extremity secondary to pain. Tenderness to palpation of the right anterior knee right lateral thigh right hip and right inguinal region. No posterior calf tenderness no pain or swelling to the distal lower extremity. Good distal pulse. Neuro: Oriented X 3. No motor deficit. No sensory deficit. Course Course Course Narrative: Patient's x-rays, blood work and urinalysis returning without acute findings. Slight bump in liver function tests I feel is more chronic than acute, patient feels improved but asking for something here to help her sleep when she gets home will give single dose of stronger pain meds and discharged home with close outpatient follow-up patient tolerating p.o. and comfortable with discharge. MDM - Extremity Injury (Lower) MDM Narrative Medical decision making narrative: Patient's vital signs are stable and she is afebrile. Patient presenting to the emergency department with reports of right lower extremity /right low back pain in the absence of injury or trauma. Patient states this is been getting worse over the last 3 weeks. Denies fevers or chills. Denies chest pain or shortness of breath. Denies abdominal pain nausea or vomiting. Does admit to increased urinary frequency and foul-smelling urine will obtain urinalysis to ensure the absence of UTI however given the absence of flank involvement lower suspicion for renal stone or pyelonephritis. Will obtain plain films of the right hip, right knee, lumbar spine looking for acute findings will medicate with Motrin. Will check basic blood work in the event patient needs more advanced imaging. No signs of DVT no posterior calf tenderness or swelling do not feel ultrasound is warranted. We will continue to monitor. Lab Data Result diagrams: 03/14/21 18:12 03/14/21 18:13 Labs: Lab Results 03/14/21 03/14/21 03/14/21 Range/Units 18:12 18:13 18:59 WBC 12.1 H (4.8-10.8) X10*3/uL RBC 4.96 (4.20-5.50) X10*6/uL Hgb 12.5 (12.0-16.0) g/dl Hct 40.8 (37-47) % MCV 82.3 (80-98) fL MCH 25.2 L (27.0-33.0) pg MCHC 30.6 L (31.0-35.0) g/dl RDW 14.5 (11.0-16.0) % Plt Count 355 (160-400) X10*3/uL MPV 10.7 (9.4-12.3) fL Immature Gran % (Auto) 0.4 (0.0-0.4) % Neut % (Auto) 61.2 (45-73) % Lymph % (Auto) 28.0 (20-40) % [place] % (Auto) 6.3 (2-11) % Eos % (Auto) 3.7 (0-4) % Baso % (Auto) 0.4 (0-2) % Lymph # (Auto) 3.4 (1.2-4.9) X10*3/uL [place] # (Auto) 0.8 (0.1-1.2) X10*3/uL Eos # (Auto) 0.5 H (0.0-0.4) X10*3/uL Baso # (Auto) 0.1 (0.0-0.2) X10*3/uL Abs Immat Gran (auto) 0.05 H (0.00-0.03) X10*3/uL Absolute Neuts (auto) 7.4 (2.0-8.3) X10*3/uL Absolute Nucleated RBC 0.000 (0.0-0.012) X10*3/uL Nucleated RBC % (auto) 0.0 (0.0-0.2) /100WBC Sodium 141 (135-145) mmol/L Potassium 4.7 (3.3-5.1) mmol/L Chloride 105 (96-108) mmol/L Carbon Dioxide 21 L (22-29) mmol/L Anion Gap 20 (12-20) BUN 26 H (9-16) mg/dL Creatinine 1.40 (0.5-1.4) mg/dL Estim Creat Clear Calc 54.7 Estimated GFR 39 Random Glucose 161 H (60-115) mg/dL Calcium 10.0 D (8.4-10.2) mg/dL Total Bilirubin 0.4 (0.0-1.0) mg/dL AST 50 H (5-31) U/L ALT 45 H (0-31) U/L Alkaline Phosphatase 70 (39-117) U/L Total Protein 8.1 H (6.5-8.0) g/dL Albumin 4.4 (3.5-5.0) g/dL Lipase 36 (8-78) U/L Urine Color YELLOW Urine Appearance CLEAR Urine pH 6.0 (5.0-8.0) Ur Specific [place] 1.020 (1.005-1.025) Urine Protein NEG (NEG-TRACE) MG/DL Urine Glucose (UA) NEG (NEG) MG/DL Urine Ketones NEG (NEG) MG/DL Urine Blood NEG (NEG) Urine Nitrite NEG (NEG) Ur Leukocyte Esterase NEG (NEG) Discharge Plan Discharge Clinical Impression: Acute leg pain Qualifiers: Laterality: right Qualified Code(s): M79.604 - Pain in right leg Back pain Qualifiers: Back pain location: low back pain Chronicity: acute Back pain laterality: right Sciatica presence: with sciatica Sciatica laterality: sciatica of right side Qualified Code(s): M54.41 - Lumbago with sciatica, right side Patient Disposition: Home, Self-Care Instructions: Lumbar Radiculopathy (ED), Leg Pain (ED) Prescriptions: New acetaminophen [Tylenol] 325 mg tablet 650 mg PO Q6H PRN (Reason: pain) Qty: 20 RF: 0 ibuprofen 600 mg tablet 600 mg PO Q6H PRN (Reason: pain) Qty: 20 RF: 0 No Action Tresiba FlexTouch U-200 200 unit/mL (3 mL) insulin pen 20 unit SUBCUT DAILY Qty: 9 RF: 2 metformin 1,000 mg tablet 1,000 mg PO BID Qty: 60 RF: 2 lidocaine 5 % Adhesive Patch,Medicated 1 patch TOPICAL DAILY RF: 0 albuterol sulfate [Proventil HFA] 90 mcg/actuation Hfa Aerosol Inhaler 1 puff INHALATION QID PRN (Reason: Wheezing) RF: 0 Flovent 110 mcg/actuation Hfa Aerosol Inhaler 1 puff INHALATION Q12H RF: 0 cholecalciferol (vitamin D3) [Vitamin D3] 50 mcg (2,000 unit) Capsule 50 mcg PO DAILY RF: 0 lisinopril-hydrochlorothiazide 20-25 mg tablet 2 tab PO DAILY RF: 0 propranolol 60 mg tablet 60 mg PO BID RF: 0 clonazepam 1 mg tablet 1 mg PO BID RF: 0 acetaminophen 325 mg capsule 325 mg PO Q4H PRNRF: 0 gabapentin 300 mg capsule 300 mg PO BEDTIME RF: 0 Allergy Relief (cetirizine) 10 mg capsule 10 mg PO DAILY PRNRF: 0 Trulicity 0.75 mg/0.5 mL pen injector 0.75 mg subcut QWEEK Qty: 6 RF: 1 atorvastatin 20 mg tablet 20 mg PO BEDTIME Qty: 30 RF: 6 Interventions: ED Discharge Assessment Last Done: 03/14/21 19:58 Print Language: Upper Sorbian
[2021-03-14 19:05] LABS: Appearance Urine CLEAR; Color Urine YELLOW; Glucose Urine UA NEG (NEG); Leukocyte Esterase Urine NEG (NEG); Nitrite Urine NEG (NEG); Urine Blood NEG (NEG); Urine Ketones NEG (NEG); Urine Protein NEG (NEG-TRACE)
[2021-03-14] MEDS: oxyCODONE HCl Immed Release 5 MG TABLET PO (19:45)
== END 2021-03-14 19:41 | disposition home or self-care (01) ==
PROVIDERS: Physician Assistant; Emergency Provider Emergency Medicine
DX: M54.41 Lumbago with sciatica, right side (principal); M79.604 Pain in right leg; E11.9 Type 2 diabetes mellitus without complications; I10 Essential (primary) hypertension; E66.9 Obesity, unspecified; Z79.4 Long term (current) use of insulin; Z79.899 Other long term (current) drug therapy
CPT/HCPCS: 36415; 72100; 73502; 73564; 80053; 81003; 83690; 85025; 99283; 99284

== ENCOUNTER → 2021-03-23 11:28 | Outpatient (BNVA) | payer MEDICAID, SELFPAY | PROVIDERS: PCP Registered Nurse; Visit Provider Nurse Practitioner Gerontology | DX: E11.65 Type 2 diabetes mellitus with hyperglycemia (principal); E66.01 Morbid (severe) obesity due to excess calories; I10 Essential (primary) hypertension; E78.5 Hyperlipidemia, unspecified; Z68.43 Body mass index [BMI] 50.0-59.9, adult; Z79.4 Long term (current) use of insulin; Z79.899 Other long term (current) drug therapy | CPT/HCPCS: 82947; 99212 ==

== ENCOUNTER 2021-03-30 11:22 | Outpatient (REF) | payer MEDICAID, SELFPAY ==
--- NOTE | ~2021-03-30 | XR_ITS ---
EXAMINATION: XR HAND, RIGHT CLINICAL INFORMATION: Right hand pain. COMPARISON: None TECHNIQUE: PA, lateral, and oblique views of the right hand. FINDINGS: The bones and soft tissues are normal. No fracture. Alignment is anatomic. Joint spaces are maintained. No erosions or soft tissue calcifications. XR/XR hand RT min 3V IMPRESSION: Unremarkable right hand.
--- NOTE | ~2021-03-30 | XR_ITS ---
EXAMINATION: XR HAND, LEFT CLINICAL INFORMATION: Left hand pain. COMPARISON: None TECHNIQUE: PA, lateral, and oblique views of the left hand. FINDINGS: Mild distal interphalangeal degenerative joint changes are seen. There is no acute fracture or dislocation. The carpal bones are normally aligned. The distal radius and ulna are intact. The soft tissues are unremarkable. XR/XR hand LT min 3V IMPRESSION: Mild distal interphalangeal osteoarthritis.
--- NOTE | ~2021-03-30 | XR_ITS ---
EXAMINATION: XR LUMBOSACRAL SPINE CLINICAL INFORMATION: Low back pain. COMPARISON: 09/14/2020 lumbar spine contrast. TECHNIQUE: Three views of the lumbosacral spine. FINDINGS: Multilevel degenerative disc disease is seen with moderate to severe degenerative disc disease at L4-L5 and L5-S1. The vertebral bodies are intact. There is no acute fracture. Moderate bilateral facet uropathy seen at L5-S1. The soft tissues are unremarkable. XR/XR lumbar spine 2-3V IMPRESSION: Multilevel degenerative changes in the lingula were explained without significant interval change.
[2021-03-30 13:21] LABS: MANUAL DIFF FLAG NO
[2021-03-30 13:31] LABS: Basophils Percent Auto 0.4 % (0-2); Eosinophils Absolute Auto 0.4 X10*3/uL (0.0-0.4); Eosinophils Percent Auto 3.6 % (0-4); Hematocrit 39.8 % (37-47); Hemoglobin 12.2 g/dl (12.0-16.0); Imm Gran Abs Auto 0.03 X10*3/uL (0.00-0.03); Imm Gran Pct Auto 0.3 % (0.0-0.4); Lymphocytes Absolute Auto 2.9 X10*3/uL (1.2-4.9); Lymphocytes Percent Auto 29.2 % (20-40); Mean Corpuscular HGB Conc 30.7 g/dl (31.0-35.0); Mean Corpuscular Hemoglobin 25.3 pg (27.0-33.0); Mean Corpuscular Volume 82.6 fL (80-98); Mean Platelet Volume 10.9 fL (9.4-12.3); Monocytes Absolute Auto 0.5 X10*3/uL (0.1-1.2); Neutrophils Absolute Auto 6.2 X10*3/uL (2.0-8.3); Neutrophils Percent Auto 61.5 % (45-73); Platelet Count 327 X10*3/uL (160-400); Red Blood Count 4.82 X10*6/uL (4.20-5.50); Red Cell Distribution Width 14.6 % (11.0-16.0); White Blood Count 10.1 X10*3/uL (4.8-10.8)
[2021-03-30 14:13] LABS: Erythrocyte Sedimentation Rate 25 MM/HR (0-20)
[2021-03-30 14:33] LABS: Alanine Aminotransferase 41 U/L (0-31); Alkaline Phosphatase 65 U/L (39-117); Anion Gap 20 (12-20); Aspartate Amino Transferase 39 U/L (5-31); Bilirubin Total 0.4 mg/dL (0.0-1.0); Blood Urea Nitrogen 23 mg/dL (9-16); C Reactive Protein 0.89 mg/dL (< or = 0.50); Calcium 9.9 mg/dL (8.4-10.2); Carbon Dioxide 18 mmol/L (22-29); Chloride 104 mmol/L (96-108); Estimated Glomerular Filt Rate 45; Glucose Random 208 mg/dL (60-115); Potassium 4.3 mmol/L (3.3-5.1); Rheumatoid Factor < 15.0 IU/mL (<15.0); Sodium 138 mmol/L (135-145); Total Protein 7.3 g/dL (6.5-8.0)
[2021-04-01 05:06] LABS: Lyme Abs Screen <0.90 index
[2021-04-03 23:32] LABS: Anti Nuclear Antibody Screen POSITIVE (NEGATIVE); Anti Nuclear Antibody Titer 1:40 titer
[2021-04-04 12:52] LABS: Vitamin D 25-OH, D2 <4 ng/mL; Vitamin D 25-OH, D3 33 ng/mL; Vitamin D 25-OH, Total 33 ng/mL (30-100)
[2021-04-05 15:56] LABS: Cyclic Citrullinated Peptide 19 UNITS
== END 2021-03-30 11:23 | disposition home or self-care (01) ==
LOC: HO.XRAY 11:22
PROVIDERS: PCP Registered Nurse; Visit Provider Student in an Organized Health Care Education/Training Program
DX: M25.561 Pain in right knee (principal); M25.562 Pain in left knee; M79.641 Pain in right hand; M79.642 Pain in left hand; M54.5 Low back pain
CPT/HCPCS: 36415; 72100; 73130; 80053; 82306; 84443; 85025; 85652; 86038; 86039; 86140; 86200; 86431; 86617; 86618; 99202

== ENCOUNTER → 2021-04-26 15:09 | Outpatient (BNVA) | payer MEDICAID, SELFPAY | PROVIDERS: PCP Nurse Practitioner Family; Visit Provider Student in an Organized Health Care Education/Training Program | DX: M25.562 Pain in left knee (principal); M25.561 Pain in right knee; M79.642 Pain in left hand; M79.641 Pain in right hand; M47.816 Spondylosis without myelopathy or radiculopathy, lumbar region; E11.65 Type 2 diabetes mellitus with hyperglycemia; I10 Essential (primary) hypertension; E78.5 Hyperlipidemia, unspecified; G47.33 Obstructive sleep apnea (adult) (pediatric); F41.8 Other specified anxiety disorders; E66.01 Morbid (severe) obesity due to excess calories; Z68.43 Body mass index [BMI] 50.0-59.9, adult; Z99.89 Dependence on other enabling machines and devices; Z79.4 Long term (current) use of insulin; Z79.899 Other long term (current) drug therapy | CPT/HCPCS: 99212 ==

== ENCOUNTER → 2021-05-22 15:03 | Outpatient (BNVA) | payer MEDICAID, SELFPAY | PROVIDERS: PCP Nurse Practitioner Family; Visit Provider Anesthesiology | DX: M47.816 Spondylosis without myelopathy or radiculopathy, lumbar region (principal); M54.5 Low back pain; M25.561 Pain in right knee; M46.1 Sacroiliitis, not elsewhere classified; M16.0 Bilateral primary osteoarthritis of hip; M51.36 Other intervertebral disc degeneration, lumbar region; M47.817 Spondylosis without myelopathy or radiculopathy, lumbosacral region; G89.4 Chronic pain syndrome; E11.9 Type 2 diabetes mellitus without complications; I10 Essential (primary) hypertension; E66.01 Morbid (severe) obesity due to excess calories; E78.5 Hyperlipidemia, unspecified; F64.9 Gender identity disorder, unspecified; F41.8 Other specified anxiety disorders | CPT/HCPCS: 99202 ==

== ENCOUNTER → 2021-06-16 11:41 | Outpatient (BNVA) | payer MEDICAID, SELFPAY | PROVIDERS: PCP Nurse Practitioner Family; Visit Provider Nurse Practitioner Gerontology ==

== ENCOUNTER 2021-07-15 18:38 | Emergency (ER) | payer MEDICAID, SELFPAY ==
--- NOTE | ~2021-07-15 | CT_ITS ---
CT HEAD WITHOUT CONTRAST CLINICAL INFORMATION: Headache and dysarthria. COMPARISON: Head CT 05/23/2020. TECHNIQUE: Contiguous axial imaging was performed from the skull base to vertex without intravenous administration of contrast. This CT examination was performed using dose optimization techniques as appropriate, variously including the following: *Automated exposure control *Adjustment of mA and/or kV according to patient size (this includes techniques or standardized protocols for targeted exams where dose is matched to indication/reason for exam; i.e. extremities or head) *Use of iterative reconstruction technique FINDINGS: There is no intracranial hemorrhage, hydrocephalus, extra-axial surface collection, midline shift, or other herniation pattern. Wise to white matter differentiation is diffusely maintained without evidence of an evolved acute territorial infarct. The basilar cisterns are preserved. No significant soft tissue abnormality. No acute osseous abnormality. The paranasal sinuses and the mastoid air cells are well aerated. CT/CT head/brain wo con IMPRESSION: No acute intracranial abnormality. Findings discussed with Dr. Vo at 7:00 PM on 07/15/2021.
--- NOTE | 2021-07-15 18:44 | ED_ITS ---
HPI - Neuro Symptoms/Deficit General Chief Complaint: Stroke Stated Complaint: ?stroke Time Seen by Provider: 07/15/21 18:41 Source: patient Mode of arrival: EMS Limitations: no limitations History of Present Illness HPI Narrative: Patient with chronic pain syndrome diabetes depression seizure disorder around 1800 while talking to the [facility] had difficulty speaking also complaining of right-sided headache no history of seizures by the time EMS reach patient started feeling better on arrival in the ER patient speaking normally without any significant weakness Related Data Home Medications Medication Instructions Recorded Confirmed albuterol sulfate 90 mcg/actuation 1 puff INHALATION QID PRN 07/14/20 06/16/21 aerosol inhaler (Proventil HFA) cholecalciferol (vitamin D3) 50 50 mcg PO DAILY 07/14/20 06/16/21 mcg (2,000 unit) capsule (Vitamin D3) fluticasone propionate 110 1 puff INHALATION Q12H 07/14/20 06/16/21 mcg/actuation HFA aerosol inhaler lisinopril 20 2 tab PO DAILY 12/12/20 06/16/21 mg-hydrochlorothiazide 25 mg tablet propranolol 60 mg tablet 60 mg PO BID 12/12/20 06/16/21 cetirizine 10 mg capsule (Allergy 10 mg PO DAILY PRN 01/16/21 06/16/21 Relief (cetirizine)) clonazepam 1 mg tablet 1 mg PO BID 01/16/21 06/16/21 Previous Rx's Medication Instructions Recorded metformin 1,000 mg tablet 1,000 mg PO BID #60 tab 08/11/20 atorvastatin 20 mg tablet 20 mg PO BEDTIME #30 tab 01/16/21 acetaminophen 325 mg tablet 650 mg PO Q6H PRN #20 tab 03/14/21 (Tylenol) ibuprofen 600 mg tablet 600 mg PO Q6H PRN #20 tab 03/14/21 blood sugar diagnostic (FreeStyle #100 ea 03/23/21 Lite Strips) insulin degludec 200 unit/mL (3 32 unit (0.16 mL) SUBCUT DAILY #9 03/23/21 mL) subcutaneous pen (Tresiba ml FlexTouch U-200 insulin) lancets 28 gauge (FreeStyle #100 ea 03/23/21 Lancets) gabapentin 300 mg capsule 300 mg PO TID #90 cap 03/30/21 pen needle, diabetic 32 gauge x 1 ea MISCELLANEOUS DAILY #100 ea 05/24/21 (Pentips) dulaglutide 3 mg/0.5 mL 3 mg (0.5 mL) SUBCUT QWEEK #2 ml 06/16/21 subcutaneous pen injector (Trulicity) empagliflozin 10 mg tablet 10 mg PO QAM #30 tab 06/16/21 (Jardiance) Allergies Allergy/AdvReac Type Severity Reaction Status Date / Time No Known Allergies Allergy Verified 06/16/21 12:48 Review of Systems Review of Systems: Yes all other systems are reviewed and are negative [facility] Past Medical History Medical History Anxiety Asthma Chronic pain syndrome Depression Diabetes mellitus type 2, controlled, without complications Disc degeneration, lumbar Epilepsy Essential hypertension Gender dysphoria Hip osteoarthritis History of tremor Hyperlipidemia LDL goal <100 Hypertension Illiterate Morbid obesity due to excess calories VELASQUEZ on CPAP Panic attacks Sacroiliitis Spondylosis 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 myelopathy Vitamin D deficiency Surgical History History of esophagogastroduodenoscopy (EGD) Hx of laparoscopic gastric banding Family History Family History Father CVD (cardiovascular disease) Mother Hypertension Social History Social History Household Members: None Are you a primary intensive care unit registered nurse to a significant other at home: No Do you presently have visiting nurse or other home services: Yes Alcohol intake: former Patient Tobacco Use Status: Former Tobacco user Quit Date: 07/13/2020 Substance Use Type: Marijuana Advance Directives: No Advance Directives Information Provided: No Patient : No Physical Exam Vital Signs: Vital Signs: Last Vital Signs Temp 99 F 07/15/21 18:54 Pulse 90 07/15/21 18:54 Resp 18 07/15/21 18:54 BP 122/82 07/15/21 18:54 Pulse Ox 96 07/15/21 18:54 Body Mass Index 49.1 Appearance: Alert. Oriented X3. No acute distress. Obese Eyes: PERRLA, No Nystagmus ENT: Pharynx normal. Oral Mucosa moist Neck: Normal inspection. Neck supple. CVS: Normal heart rate and rhythm. Pulses normal. Respiratory: No respiratory distress. Equal air entry bilateral, no wheezing/rales/rhonchi Abdomen: Soft and nontender. Bowel sounds are present, no mass palpable, no CVA tenderness Skin: Skin warm and dry. Normal skin color. Normal skin turgor. Extremities: No lower extremity edema. No calf tenderness Neuro: Oriented X 3. No motor deficit. No sensory deficit.No cerebellar signs , cranial nerves II-XII intact speech is normal MDM - Neuro Symptoms/Deficit MDM Narrative Medical decision making narrative: Patient with history of anxiety and panic attacks and migraine headache had headache and then became anxious and had difficulty speaking by the time she came to the hospital having is back to n ormal feel little anxious asking for some medicine for anxiety head CT is negative blood pressure stable will discharge patient back to home NIH Stroke Scale Internal: Initial- Upon Arrival Level of Consciousness: Alert Level of Consciousness Questions: Answers both questions correctly Level of Consciousness Commands: Performs both tasks correctly Best Gaze: Normal Visual: No visual loss Facial Palsy: Normal Motor Arm (Right): No drift Motor Arm (Left): No drift Motor Leg (Right): No drift Motor Leg (Left): No drift Limb Ataxia: Absent Sensory: Normal Best Language: No aphasia Dysarthia: Normal Extinction and Inattention: No abnormality Score: 0 Discharge Plan Discharge Clinical Impression: Anxiety Patient Disposition: Home, Self-Care Instructions: Anxiety (ED) Additional Instructions: Continue taking medication for anxiety and follow with PCP Prescriptions: No Action metformin 1,000 mg tablet 1,000 mg PO BID Qty: 60 RF: 2 pen needle, diabetic [Pentips] 32 gauge x 5/32 needle 1 ea miscellaneous DAILY Qty: 100 RF: 3 albuterol sulfate [Proventil HFA] 90 mcg/actuation Hfa Aerosol Inhaler 1 puff INHALATION QID PRN (Reason: Wheezing) RF: 0 Flovent 110 mcg/actuation Hfa Aerosol Inhaler 1 puff INHALATION Q12H RF: 0 cholecalciferol (vitamin D3) [Vitamin D3] 50 mcg (2,000 unit) Capsule 50 mcg PO DAILY RF: 0 acetaminophen [Tylenol] 325 mg tablet 650 mg PO Q6H PRN (Reason: pain) Qty: 20 RF: 0 ibuprofen 600 mg tablet 600 mg PO Q6H PRN (Reason: pain) Qty: 20 RF: 0 Tresiba FlexTouch U-200 200 unit/mL (3 mL) insulin pen 32 unit SUBCUT DAILY Qty: 9 RF: 2 (DME) FreeStyle Lite Strips Strip See Rx Instructions .ROUTE .MEDSUPPLY Qty: 100 RF: 11 (DME) lancets [FreeStyle Lancets] 28 gauge misc See Rx Instructions .ROUTE .MEDSUPPLY Qty: 100 RF: 11 lisinopril-hydrochlorothiazide 20-25 mg tablet 2 tab PO DAILY RF: 0 propranolol 60 mg tablet 60 mg PO BID RF: 0 clonazepam 1 mg tablet 1 mg PO BID RF: 0 Allergy Relief (cetirizine) 10 mg capsule 10 mg PO DAILY PRNRF: 0 atorvastatin 20 mg tablet 20 mg PO BEDTIME Qty: 30 RF: 6 gabapentin 300 mg capsule 300 mg PO TID Qty: 90 RF: 2 Jardiance 10 mg tablet 10 mg PO QAM Qty: 30 RF: 6 Trulicity 3 mg/0.5 mL pen injector 3 mg subcut QWEEK Qty: 2 RF: 6 Interventions: ED Discharge Assessment Last Done: 07/15/21 20:42 Discharge Date/Time: 07/15/21 20:43
[2021-07-15 18:54] VITALS: BP 122/82; PULSE 88; PULSE 90; RESP 18; TEMP 37.2; O2SAT 96; O2SAT 97; BMI 49.1
--- NOTE | 2021-07-15 19:42 | PC.NURSE ---
pt dami, atnitin held per dr longo. verbal order to ambulate pt.
--- NOTE | 2021-07-15 19:43 | PC.NURSE ---
swallow eval done with pt and passed. pt took water with no difficutly, hob elevated. vitals stable.
--- NOTE | 2021-07-15 19:51 | PC.NURSE ---
Pt able to ambulate w/ assistance from OZZY Titus. Using wc in place of walker
--- NOTE | 2021-07-15 19:57 | PC.NURSE ---
pt sat after ambulating 96% on room air. pt does use o2 at home and did very well.
--- NOTE | 2021-07-16 13:52 | ECG_ITS ---
Test Reason : STROKE Blood Pressure : / mmHG Vent. Rate : 088 BPM Atrial Rate : 088 BPM P-R Int : 176 ms QRS Dur : 080 ms QT Int : 380 ms P-R-T Axes : 054 011 037 degrees QTc Int : 459 ms Normal sinus rhythm Normal ECG No significant changes seen Referred By: Varinder Barney Electronically Signed By:ZAK RODRIGUEZ MD
== END 2021-07-15 20:43 | disposition home or self-care (01) ==
PROVIDERS: Emergency Provider Internal Medicine; PCP Nurse Practitioner Primary Care
DX: F41.1 Generalized anxiety disorder (principal); F43.0 Acute stress reaction; R29.700 NIHSS score 0; R51.9 Headache, unspecified; G89.4 Chronic pain syndrome; Z79.899 Other long term (current) drug therapy
CPT/HCPCS: 70450; 93005; 99283; 99284

== ENCOUNTER 2021-09-14 10:29 | Emergency (ER) | payer MEDICAID, SELFPAY ==
--- NOTE | ~2021-09-14 | NM_ITS ---
EXAMINATION: [place] LUNG IMAGE PERFUSION CLINICAL INFORMATION: Elevated creatinine. Shortness.. Evaluate for PE. COMPARISON: Chest x-ray 09/14/2021 TECHNIQUE: Following intravenous administration of 3.6 mCi of technetium 99 MAA, imaging of both lungs were obtained multiple projections. Ventilation study was not performed FINDINGS: There is elevated right mid hemidiaphragm defect. Otherwise no segmental or subsegmental defects seen to suspect any PE. NM/[place] pul perfusion IMPRESSION: No evidence seen to suspect any PE. There is a right eccentric mid hemidiaphragmatic defect also visualized on chest x-ray. From today
--- NOTE | ~2021-09-14 | XR_ITS ---
EXAMINATION: XR CHEST CLINICAL INFORMATION: Covid positive COMPARISON: None TECHNIQUE: Frontal view of the chest was obtained. FINDINGS: Lungs are well-expanded with mild elevated right hemidiaphragm. The heart size and pulmonary vascularity is normal. No gross bony abnormality seen. XR/XR chest 1V IMPRESSION: Mild elevated right hemidiaphragm. No acute cardiopulmonary process seen.
[2021-09-14 10:39] VITALS: BP 106/68; PULSE 98; O2SAT 98
[2021-09-14 10:48] VITALS: BP 135/80; PULSE 115; RESP 20; TEMP 36.4; O2SAT 98; BMI 52.2
[2021-09-14 11:23] LABS: COVID-19 Test Positive (Negative)
--- NOTE | 2021-09-14 12:21 | ECG_ITS ---
Test Reason : SOB Blood Pressure : / mmHG Vent. Rate : 109 BPM Atrial Rate : 109 BPM P-R Int : 134 ms QRS Dur : 080 ms QT Int : 318 ms P-R-T Axes : 062 023 058 degrees QTc Int : 428 ms Sinus tachycardia Otherwise normal ECG When compared with ECG of 15-JUL-2021 19:07, No significant change was found Referred By: Jason Matos Electronically Signed By:CHAVO INFANTE
[2021-09-14] MEDS: 0.9 % Sodium Chloride 1,000 ML 999 ML IVCONT ×2 (13:20→17:21)
[2021-09-14 13:28] LABS: MANUAL DIFF FLAG NO
[2021-09-14 13:33] LABS: Basophils Percent Auto 0.1 % (0-2); Hematocrit 40.6 % (37.0-47.0); Hemoglobin 13.2 g/dl (12.0-16.0); Imm Gran Abs Auto 0.04 X10*3/uL (0.00-0.03); Imm Gran Pct Auto 0.6 % (0.0-0.4); Lymphocytes Absolute Auto 1.4 X10*3/uL (1.2-4.9); Lymphocytes Percent Auto 20.3 % (20-40); Mean Corpuscular HGB Conc 32.5 g/dl (31.0-35.0); Mean Corpuscular Hemoglobin 25.9 pg (27.0-33.0); Mean Corpuscular Volume 79.8 fL (80.0-98.0); Mean Platelet Volume 10.2 fL (9.4-12.3); Monocytes Absolute Auto 0.7 X10*3/uL (0.1-1.2); Monocytes Percent Auto 10.5 % (2-11); Neutrophils Absolute Auto 4.8 x10*3/uL (2.0-8.3); Neutrophils Percent Auto 68.5 % (45-73); Platelet Count 336 X10*3/uL (160-400); Red Blood Count 5.09 X10*6/uL (4.20-5.50); Red Cell Distribution Width 14.9 % (11.0-16.0); White Blood Count 6.9 X10*3/uL (4.8-10.8)
[2021-09-14 13:51] LABS: D Dimer High Sensitivity 277 NG/ML
[2021-09-14 13:52] LABS: Lactic Acid 2.1 mmol/L (0.5-2.0)
[2021-09-14 13:55] LABS: Troponin-I High Sensitivity 5.3 ng/L (<3.5-17.0)
[2021-09-14 14:00] LABS: Alanine Aminotransferase 41 U/L (0-31); Albumin Level 4.1 g/dL (3.5-5.0); Alkaline Phosphatase 53 U/L (39-117); Anion Gap 19 (12-20); Aspartate Amino Transferase 75 U/L (5-31); Bilirubin Direct 0.2 mg/dL (0.0-0.5); Bilirubin Total 0.4 mg/dL (0.0-1.0); Blood Urea Nitrogen 38 mg/dL (9-16); C Reactive Protein 1.27 mg/dL (< or = 0.50); Calcium 9.2 mg/dL (8.4-10.2); Carbon Dioxide 18 mmol/L (22-29); Chloride 102 mmol/L (96-108); Creatinine Clr Calc Pharmacy 37.4; Estimated Glomerular Filt Rate 26; Glucose Random 216 mg/dL (60-115); Lipase 50 U/L (8-78); Sodium 135 mmol/L (135-145); Total Protein 8.3 g/dL (6.5-8.0)
[2021-09-14 14:15] LABS: Erythrocyte Sedimentation Rate 54 MM/HR (0-20)
[2021-09-14 15:25] LABS: Reflex Lactate? Lactic Acid Added
[2021-09-14 17:16] VITALS: BP 121/55; PULSE 96; RESP 19; TEMP 38.3; O2SAT 97
[2021-09-14 17:16] LABS: ~Lactic Acid-LAB USE ONLY 1.4 mmol/L (0.5-2.0)
[2021-09-14 17:27] LABS: Troponin-I High Sensitivity 4.6 ng/L (<3.5-17.0)
[2021-09-14] MEDS: Acetaminophen 325 MG TABLET 975 MG PO (17:28)
[2021-09-14 17:52] LABS: Appearance Urine CLEAR; Color Urine YELLOW; Glucose Urine UA NEG (NEG); Leukocyte Esterase Urine TRACE (NEG); Nitrite Urine POS (NEG); PH 5.5 (5.0-8.0); Specific Gravity - Urine 1.025 (1.005-1.025); UACC Culture Trigger YES; Urine Blood TRACE (NEG); Urine Ketones NEG (NEG); Urine Protein 1+ MG/DL (NEG-TRACE)
[2021-09-14 18:00] LABS: Bacteria Urine 4+ /LPF; RBC Urine 0-2 /HPF (0); Squamous Epithelial Cell Urine 1+ /LPF
--- NOTE | 2021-09-14 18:57 | ED.GENADULT ---
HPI - General Adult General Chief complaint: Back Pain/Injury Stated complaint: PAIN W/URINATION Time Seen by Provider: 09/14/21 11:47 History of Present Illness HPI narrative: Patient complains of cough mild shortness of breath and fever at home and a loss of appetite She also complains of burning with urination She denies headache stiff neck no chest pain Related Data Home Medications Medication Instructions Recorded Confirmed albuterol sulfate 90 mcg/actuation 1 puff INHALATION QID PRN 07/14/20 06/16/21 aerosol inhaler (Proventil HFA) cholecalciferol (vitamin D3) 50 50 mcg PO DAILY 07/14/20 06/16/21 mcg (2,000 unit) capsule (Vitamin D3) fluticasone propionate 110 1 puff INHALATION Q12H 07/14/20 06/16/21 mcg/actuation HFA aerosol inhaler lisinopril 20 2 tab PO DAILY 12/12/20 06/16/21 mg-hydrochlorothiazide 25 mg tablet propranolol 60 mg tablet 60 mg PO BID 12/12/20 06/16/21 cetirizine 10 mg capsule (Allergy 10 mg PO DAILY PRN 01/16/21 06/16/21 Relief (cetirizine)) clonazepam 1 mg tablet 1 mg PO BID 01/16/21 06/16/21 Previous Rx's Medication Instructions Recorded metformin 1,000 mg tablet 1,000 mg PO BID #60 tab 08/11/20 acetaminophen 325 mg tablet 650 mg PO Q6H PRN #20 tab 03/14/21 (Tylenol) ibuprofen 600 mg tablet 600 mg PO Q6H PRN #20 tab 03/14/21 blood sugar diagnostic (FreeStyle #100 ea 03/23/21 Lite Strips) lancets 28 gauge (FreeStyle #100 ea 03/23/21 Lancets) pen needle, diabetic 32 gauge x 1 ea MISCELLANEOUS DAILY #100 ea 05/24/21 (Pentips) dulaglutide 3 mg/0.5 mL 3 mg (0.5 mL) SUBCUT QWEEK #2 ml 06/16/21 subcutaneous pen injector (Trulicity) empagliflozin 10 mg tablet 10 mg PO QAM #30 tab 06/16/21 (Jardiance) gabapentin 300 mg capsule 300 mg PO TID #90 cap 11/29/21 atorvastatin 20 mg tablet 20 mg PO BEDTIME #30 tab 08/21/21 insulin degludec 200 unit/mL (3 32 unit (0.16 mL) SUBCUT DAILY #9 09/11/21 mL) subcutaneous pen (Tresiba ml FlexTouch U-200 insulin) Allergies Allergy/AdvReac Type Severity Reaction Status Date / Time No Known Allergies Allergy Verified 06/16/21 12:48 Review of Systems Review of Systems: Positive for fever cough shortness of breath and burning with urination and body aches Negatives are no fainting no feeling faint no headache no neck pain no stiff neck no chest pain no abdominal pain no nausea vomiting or diarrhea no back pain no skin rash Yes all other systems are reviewed and are negative PMFSH Past Medical History Source: nursing notes reviewed Medical History Anxiety Asthma Chronic pain syndrome Depression Diabetes mellitus type 2, controlled, without complications Disc degeneration, lumbar Epilepsy Essential hypertension Gender dysphoria Hip osteoarthritis History of tremor Hyperlipidemia LDL goal <100 Hypertension Illiterate Morbid obesity due to excess calories VELASQUEZ on CPAP Panic attacks Sacroiliitis Spondylosis 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 myelopathy Vitamin D deficiency Surgical History History of esophagogastroduodenoscopy (EGD) Hx of laparoscopic gastric banding Family History Family History Father CVD (cardiovascular disease) Mother Hypertension Social History Social History Household Members: None Are you a primary care team coordinator scheduler to a significant other at home: No Do you presently have visiting nurse or other home services: Yes Alcohol intake: former Patient Tobacco Use Status: Former Tobacco user Quit Date: 07/13/2020 Substance Use Type: Marijuana Advance Directives: No Advance Directives Information Provided: No Physical Exam Vital Signs: Vital Signs: Last Vital Signs Temp 101.0 F H 09/14/21 17:16 Pulse 96 09/14/21 17:16 Resp 19 09/14/21 17:16 BP 121/55 L 09/14/21 17:16 Pulse Ox 97 09/14/21 17:16 BMI result Body Mass Index 52.2 General appearance is no distress speaking full sentences no respiratory distress The eyes anicteric no pallor The pharynx no redness swelling or exudate but mucous membranes are dry Neck is supple Chest clear to auscultation bilateral The heart no murmur auscultated The abdomen is obese but soft and nontender Extremities full range of motion x4 The back no CVA tenderness Course Course Course Narrative: Patient tested for positive for COVID She was noted to be tachycardic with a mild shortness of breath and feve of 101, the tachycardia normalized after a L of fluids A D-dimer was positive at 277 so a V/Q scan was done which was negative for PE An EKG was done which showed sinus tachycardia at a rate of 109 with normal intervals, no acute ST changes no acute ischemic changes, troponins were tested and were negative for [place] Lactic acid was initially 2.1 but after hydration was 1.4 Creatinine was 1.96 which is new for this patient Glucose was 216 but no ketones in the urine and anion gap was 19 normal Urinalysis showed trace nitrites and positive bacteria and given that she does have dysuria she will be treated for UTI with antibiotic Macrobid Case was signed out at 19:[address] Vo to follow repeat BUN creatinine and to re-evaluate and dispo patient who is COVID positive and febrile with UTI Medical Decision Making Lab Data Lab results reviewed: Yes I reviewed the patient's lab results. Result diagrams: 09/14/21 13:18 09/14/21 13:18 Labs: Lab Results 09/14/21 09/14/21 09/14/21 Range/Units 10:54 13:18 13:18 WBC 6.9 (4.8-10.8) X10*3/uL RBC 5.09 (4.20-5.50) X10*6/uL Hgb 13.2 (12.0-16.0) g/dl Hct 40.6 (37.0-47.0) % MCV 79.8 L (80.0-98.0) fL MCH 25.9 L (27.0-33.0) pg MCHC 32.5 (31.0-35.0) g/dl RDW 14.9 (11.0-16.0) % Plt Count 336 (160-400) X10*3/uL MPV 10.2 (9.4-12.3) fL Immature Gran % (Auto) 0.6 H (0.0-0.4) % Neut % (Auto) 68.5 (45-73) % Lymph % (Auto) 20.3 (20-40) % [place] % (Auto) 10.5 (2-11) % Eos % (Auto) 0.0 (0-4) % Baso % (Auto) 0.1 (0-2) % Lymph # (Auto) 1.4 (1.2-4.9) X10*3/uL [place] # (Auto) 0.7 (0.1-1.2) X10*3/uL Eos # (Auto) 0.0 (0.0-0.4) X10*3/uL Baso # (Auto) 0.0 (0.0-0.2) X10*3/uL Abs Immat Gran (auto) 0.04 H (0.00-0.03) X10*3/uL Absolute Neuts (auto) 4.8 (2.0-8.3) x10*3/uL Absolute Nucleated RBC 0.000 (0.0-0.012) X10*3/uL Nucleated RBC % (auto) 0.0 (0.0-0.2) /100WBC ESR 54 H (0-20) MM/HR D-Dimer High Sensitivty NG/ML Sodium (135-145) mmol/L Potassium (3.3-5.1) mmol/L Chloride (96-108) mmol/L Carbon Dioxide (22-29) mmol/L Anion Gap (12-20) BUN (9-16) mg/dL Creatinine (0.5-1.4) mg/dL Estim Creat Clear Calc Estimated GFR Random Glucose (60-115) mg/dL Lactic Acid (0.5-2.0) mmol/L Lactic Acid F/U @ 2Hr (0.5-2.0) mmol/L Calcium (8.4-10.2) mg/dL Total Bilirubin (0.0-1.0) mg/dL Direct Bilirubin (0.0-0.5) mg/dL AST (5-31) U/L ALT (0-31) U/L Alkaline Phosphatase (39-117) U/L Troponin I High Sens (<3.5-17.0) ng/L C-Reactive Protein (< or = 0.50) mg/dL Total Protein (6.5-8.0) g/dL Albumin (3.5-5.0) g/dL Lipase (8-78) U/L Urine Color Urine Appearance Urine pH (5.0-8.0) Ur Specific [place] (1.005-1.025) Urine Protein (NEG-TRACE) MG/DL Urine Glucose (UA) (NEG) MG/DL Urine Ketones (NEG) MG/DL Urine Blood (NEG) Urine Nitrite (NEG) Ur Leukocyte Esterase (NEG) Urine RBC (0) /HPF Urine WBC (0-4) /HPF Ur Squamous Epith Cells /LPF Urine Bacteria /LPF COVID-19 ([place]) Positive A (Negative) COVID-19 Clin Com See Note 09/14/21 09/14/21 09/14/21 Range/Units 13:18 13:18 13:18 WBC (4.8-10.8) X10*3/uL RBC (4.20-5.50) X10*6/uL Hgb (12.0-16.0) g/dl Hct (37.0-47.0) % MCV (80.0-98.0) fL MCH (27.0-33.0) pg MCHC (31.0-35.0) g/dl RDW (11.0-16.0) % Plt Count (160-400) X10*3/uL MPV (9.4-12.3) fL Immature Gran % (Auto) (0.0-0.4) % Neut % (Auto) (45-73) % Lymph % (Auto) (20-40) % [place] % (Auto) (2-11) % Eos % (Auto) (0-4) % Baso % (Auto) (0-2) % Lymph # (Auto) (1.2-4.9) X10*3/uL [place] # (Auto) (0.1-1.2) X10*3/uL Eos # (Auto) (0.0-0.4) X10*3/uL Baso # (Auto) (0.0-0.2) X10*3/uL Abs Immat Gran (auto) (0.00-0.03) X10*3/uL Absolute Neuts (auto) (2.0-8.3) x10*3/uL Absolute Nucleated RBC (0.0-0.012) X10*3/uL Nucleated RBC % (auto) (0.0-0.2) /100WBC ESR (0-20) MM/HR D-Dimer High Sensitivty NG/ML Sodium 135 (135-145) mmol/L Potassium 4.0 (3.3-5.1) mmol/L Chloride 102 (96-108) mmol/L Carbon Dioxide 18 L (22-29) mmol/L Anion Gap 19 (12-20) BUN 38 H (9-16) mg/dL Creatinine 1.96 H (0.5-1.4) mg/dL Estim Creat Clear Calc 37.4 Estimated GFR 26 Random Glucose 216 H (60-115) mg/dL Lactic Acid 2.1 H* (0.5-2.0) mmol/L Lactic Acid F/U @ 2Hr (0.5-2.0) mmol/L Calcium 9.2 D (8.4-10.2) mg/dL Total Bilirubin 0.4 (0.0-1.0) mg/dL Direct Bilirubin 0.2 (0.0-0.5) mg/dL AST 75 H (5-31) U/L ALT 41 H (0-31) U/L Alkaline Phosphatase 53 (39-117) U/L Troponin I High Sens 5.3 (<3.5-17.0) ng/L C-Reactive Protein 1.27 H (< or = 0.50) mg/dL Total Protein 8.3 H (6.5-8.0) g/dL Albumin 4.1 (3.5-5.0) g/dL Lipase 50 (8-78) U/L Urine Color Urine Appearance Urine pH (5.0-8.0) Ur Specific [place] (1.005-1.025) Urine Protein (NEG-TRACE) MG/DL Urine Glucose (UA) (NEG) MG/DL Urine Ketones (NEG) MG/DL Urine Blood (NEG) Urine Nitrite (NEG) Ur Leukocyte Esterase (NEG) Urine RBC (0) /HPF Urine WBC (0-4) /HPF Ur Squamous Epith Cells /LPF Urine Bacteria /LPF COVID-19 ([place]) (Negative) COVID-19 Clin Com 09/14/21 09/14/21 09/14/21 Range/Units 13:18 16:49 16:49 WBC (4.8-10.8) X10*3/uL RBC (4.20-5.50) X10*6/uL Hgb (12.0-16.0) g/dl Hct (37.0-47.0) % MCV (80.0-98.0) fL MCH (27.0-33.0) pg MCHC (31.0-35.0) g/dl RDW (11.0-16.0) % Plt Count (160-400) X10*3/uL MPV (9.4-12.3) fL Immature Gran % (Auto) (0.0-0.4) % Neut % (Auto) (45-73) % Lymph % (Auto) (20-40) % [place] % (Auto) (2-11) % Eos % (Auto) (0-4) % Baso % (Auto) (0-2) % Lymph # (Auto) (1.2-4.9) X10*3/uL [place] # (Auto) (0.1-1.2) X10*3/uL Eos # (Auto) (0.0-0.4) X10*3/uL Baso # (Auto) (0.0-0.2) X10*3/uL Abs Immat Gran (auto) (0.00-0.03) X10*3/uL Absolute Neuts (auto) (2.0-8.3) x10*3/uL Absolute Nucleated RBC (0.0-0.012) X10*3/uL Nucleated RBC % (auto) (0.0-0.2) /100WBC ESR (0-20) MM/HR D-Dimer High Sensitivty 277 NG/ML Sodium (135-145) mmol/L Potassium (3.3-5.1) mmol/L Chloride (96-108) mmol/L Carbon Dioxide (22-29) mmol/L Anion Gap (12-20) BUN (9-16) mg/dL Creatinine (0.5-1.4) mg/dL Estim Creat Clear Calc Estimated GFR Random Glucose (60-115) mg/dL Lactic Acid (0.5-2.0) mmol/L Lactic Acid F/U @ 2Hr 1.4 (0.5-2.0) mmol/L Calcium (8.4-10.2) mg/dL Total Bilirubin (0.0-1.0) mg/dL Direct Bilirubin (0.0-0.5) mg/dL AST (5-31) U/L ALT (0-31) U/L Alkaline Phosphatase (39-117) U/L Troponin I High Sens 4.6 (<3.5-17.0) ng/L C-Reactive Protein (< or = 0.50) mg/dL Total Protein (6.5-8.0) g/dL Albumin (3.5-5.0) g/dL Lipase (8-78) U/L Urine Color Urine Appearance Urine pH (5.0-8.0) Ur Specific [place] (1.005-1.025) Urine Protein (NEG-TRACE) MG/DL Urine Glucose (UA) (NEG) MG/DL Urine Ketones (NEG) MG/DL Urine Blood (NEG) Urine Nitrite (NEG) Ur Leukocyte Esterase (NEG) Urine RBC (0) /HPF Urine WBC (0-4) /HPF Ur Squamous Epith Cells /LPF Urine Bacteria /LPF COVID-19 ([place]) (Negative) COVID-19 Clin Com 09/14/21 Range/Units 17:47 WBC (4.8-10.8) X10*3/uL RBC (4.20-5.50) X10*6/uL Hgb (12.0-16.0) g/dl Hct (37.0-47.0) % MCV (80.0-98.0) fL MCH (27.0-33.0) pg MCHC (31.0-35.0) g/dl RDW (11.0-16.0) % Plt Count (160-400) X10*3/uL MPV (9.4-12.3) fL Immature Gran % (Auto) (0.0-0.4) % Neut % (Auto) (45-73) % Lymph % (Auto) (20-40) % [place] % (Auto) (2-11) % Eos % (Auto) (0-4) % Baso % (Auto) (0-2) % Lymph # (Auto) (1.2-4.9) X10*3/uL [place] # (Auto) (0.1-1.2) X10*3/uL Eos # (Auto) (0.0-0.4) X10*3/uL Baso # (Auto) (0.0-0.2) X10*3/uL Abs Immat Gran (auto) (0.00-0.03) X10*3/uL Absolute Neuts (auto) (2.0-8.3) x10*3/uL Absolute Nucleated RBC (0.0-0.012) X10*3/uL Nucleated RBC % (auto) (0.0-0.2) /100WBC ESR (0-20) MM/HR D-Dimer High Sensitivty NG/ML Sodium (135-145) mmol/L Potassium (3.3-5.1) mmol/L Chloride (96-108) mmol/L Carbon Dioxide (22-29) mmol/L Anion Gap (12-20) BUN (9-16) mg/dL Creatinine (0.5-1.4) mg/dL Estim Creat Clear Calc Estimated GFR Random Glucose (60-115) mg/dL Lactic Acid (0.5-2.0) mmol/L Lactic Acid F/U @ 2Hr (0.5-2.0) mmol/L Calcium (8.4-10.2) mg/dL Total Bilirubin (0.0-1.0) mg/dL Direct Bilirubin (0.0-0.5) mg/dL AST (5-31) U/L ALT (0-31) U/L Alkaline Phosphatase (39-117) U/L Troponin I High Sens (<3.5-17.0) ng/L C-Reactive Protein (< or = 0.50) mg/dL Total Protein (6.5-8.0) g/dL Albumin (3.5-5.0) g/dL Lipase (8-78) U/L Urine Color YELLOW Urine Appearance CLEAR Urine pH 5.5 (5.0-8.0) Ur Specific [place] 1.025 (1.005-1.025) Urine Protein 1+ H (NEG-TRACE) MG/DL Urine Glucose (UA) NEG (NEG) MG/DL Urine Ketones NEG (NEG) MG/DL Urine Blood TRACE (NEG) Urine Nitrite POS H (NEG) Ur Leukocyte Esterase TRACE H (NEG) Urine RBC 0-2 (0) /HPF Urine WBC 1-4 (0-4) /HPF Ur Squamous Epith Cells 1+ /LPF Urine Bacteria 4+ /LPF COVID-19 ([place]) (Negative) COVID-19 Clin Com Discharge Plan Discharge Clinical Impression: COVID-19, Fever, UTI (urinary tract infection) Prescriptions: No Action metformin 1,000 mg tablet 1,000 mg PO BID Qty: 60 RF: 2 pen needle, diabetic [Pentips] 32 gauge x 5/32 needle 1 ea miscellaneous DAILY Qty: 100 RF: 3 gabapentin 300 mg capsule 300 mg PO TID Qty: 90 RF: 2 atorvastatin 20 mg tablet 20 mg PO BEDTIME Qty: 30 RF: 4 Tresiba FlexTouch U-200 200 unit/mL (3 mL) insulin pen 32 unit SUBCUT DAILY Qty: 9 RF: 2 albuterol sulfate [Proventil HFA] 90 mcg/actuation Hfa Aerosol Inhaler 1 puff INHALATION QID PRN (Reason: Wheezing) RF: 0 Flovent 110 mcg/actuation Hfa Aerosol Inhaler 1 puff INHALATION Q12H RF: 0 cholecalciferol (vitamin D3) [Vitamin D3] 50 mcg (2,000 unit) Capsule 50 mcg PO DAILY RF: 0 acetaminophen [Tylenol] 325 mg tablet 650 mg PO Q6H PRN (Reason: pain) Qty: 20 RF: 0 ibuprofen 600 mg tablet 600 mg PO Q6H PRN (Reason: pain) Qty: 20 RF: 0 (DME) FreeStyle Lite Strips Strip See Rx Instructions .ROUTE .MEDSUPPLY Qty: 100 RF: 11 (DME) lancets [FreeStyle Lancets] 28 gauge misc See Rx Instructions .ROUTE .MEDSUPPLY Qty: 100 RF: 11 lisinopril-hydrochlorothiazide 20-25 mg tablet 2 tab PO DAILY RF: 0 propranolol 60 mg tablet 60 mg PO BID RF: 0 clonazepam 1 mg tablet 1 mg PO BID RF: 0 Allergy Relief (cetirizine) 10 mg capsule 10 mg PO DAILY PRNRF: 0 Jardiance 10 mg tablet 10 mg PO QAM Qty: 30 RF: 6 Trulicity 3 mg/0.5 mL pen injector 3 mg subcut QWEEK Qty: 2 RF: 6
[2021-09-14 19:54] LABS: Anion Gap 14 (12-20); Blood Urea Nitrogen 33 mg/dL (9-16); Calcium 8.1 mg/dL (8.4-10.2); Carbon Dioxide 19 mmol/L (22-29); Chloride 107 mmol/L (96-108); Creatinine Clr Calc Pharmacy 43.4; Estimated Glomerular Filt Rate 31; Glucose Random 201 mg/dL (60-115); Potassium 3.5 mmol/L (3.3-5.1); Sodium 136 mmol/L (135-145)
[2021-09-14 20:00] VITALS: TEMP 37.2
[2021-09-14] MEDS: cefTRIAXone sodium 1 GM in 0.9 % Sodium Chloride 50 ML IV (21:29)
[2021-09-14 21:34] VITALS: BP 100/62; PULSE 94; RESP 18; O2SAT 97
== END 2021-09-14 22:32 | disposition home or self-care (01) ==
PROVIDERS: Physician Assistant Medical; Emergency Provider Internal Medicine; PCP Nurse Practitioner Primary Care
DX: U07.1 COVID-19 (principal); N39.0 Urinary tract infection, site not specified; R50.9 Fever, unspecified; R00.0 Tachycardia, unspecified; R06.02 Shortness of breath; I10 Essential (primary) hypertension; E11.9 Type 2 diabetes mellitus without complications; E78.5 Hyperlipidemia, unspecified; F12.90 Cannabis use, unspecified, uncomplicated; Z79.02 Long term (current) use of antithrombotics/antiplatelets; Z79.4 Long term (current) use of insulin; Z79.899 Other long term (current) drug therapy
CPT/HCPCS: 36415; 71045; 78580; 80048; 80076; 81001; 83605; 83690; 84484; 85025; 85379; 85652; 86140; 87040; 87086; 87088; 87186; 87635; 93005; 96361; 96365; 99284; 99285; A9540; J0696

== ENCOUNTER → 2021-11-01 16:46 | Outpatient (BNVA) | payer MEDICAID, SELFPAY | PROVIDERS: Visit Provider Anesthesiology ==

== ENCOUNTER → 2021-12-22 13:27 | Outpatient (BNVA) | payer MEDICAID, SELFPAY | PROVIDERS: PCP Internal Medicine; Visit Provider Nurse Practitioner Gerontology | DX: E11.65 Type 2 diabetes mellitus with hyperglycemia (principal); E78.5 Hyperlipidemia, unspecified; E66.01 Morbid (severe) obesity due to excess calories; E55.9 Vitamin D deficiency, unspecified; R00.0 Tachycardia, unspecified; I10 Essential (primary) hypertension; Z68.43 Body mass index [BMI] 50.0-59.9, adult; Z79.4 Long term (current) use of insulin; Z79.84 Long term (current) use of oral hypoglycemic drugs | CPT/HCPCS: 82947; 83036; 99212 ==

== ENCOUNTER → 2022-01-18 12:23 | Outpatient (BNVA) | payer MEDICAID, SELFPAY | PROVIDERS: PCP Internal Medicine; Visit Provider Nurse Practitioner Family | DX: M25.561 Pain in right knee (principal); M25.562 Pain in left knee; M47.816 Spondylosis without myelopathy or radiculopathy, lumbar region | CPT/HCPCS: 99212 ==

== ENCOUNTER → 2022-05-24 10:55 | Outpatient (BNVA) | payer MEDICAID, SELFPAY | PROVIDERS: PCP Internal Medicine; Visit Provider Nurse Practitioner Family | DX: G47.33 Obstructive sleep apnea (adult) (pediatric) (principal); E66.01 Morbid (severe) obesity due to excess calories; Z68.43 Body mass index [BMI] 50.0-59.9, adult; R40.0 Somnolence | CPT/HCPCS: 99202 ==

== ENCOUNTER → 2022-06-05 13:02 | Outpatient (REF) | payer MEDICAID, SELFPAY | LOC: HO.SL 13:02 | PROVIDERS: PCP Internal Medicine; Visit Provider Nurse Practitioner Family | DX: G47.33 Obstructive sleep apnea (adult) (pediatric) (principal); R40.0 Somnolence; E66.01 Morbid (severe) obesity due to excess calories | CPT/HCPCS: 95806 ==

== ENCOUNTER 2022-07-20 12:37 | Outpatient (REF) | payer MEDICAID, SELFPAY ==
--- NOTE | ~2022-07-20 | MM_ITS ---
EXAMINATION: MM SCREENING DIGITAL BREAST TOMOSYNTHESIS, BILATERAL CLINICAL INFORMATION: Screening. Asymptomatic. The lifetime risk of breast cancer based on the Tyrer-Cuzick Model is 7%. COMPARISON: Mammography: 09/08/2019, 02/27/2017, 05/23/2016; left breast ultrasound 09/08/2019. TECHNIQUE: Digital breast tomosynthesis is performed in both the craniocaudal and mediolateral oblique views along with computer-aided detection (CAD). Synthesized 2D images are generated from the tomosynthesis. Additional bilateral CC views are provided. FINDINGS: The breasts are almost entirely fatty (ACR BI-RADS breast composition Category a). Background stromal and fibroglandular densities are similar to prior studies. No developing density or interval mass or architectural abnormality. No abnormal calcifications. There are bilateral posterior inferior medial calcifications, many are dermal again seen The axilla and skin contours are unremarkable. MM/MM tomosynthesis screening BI IMPRESSION: No mammographic evidence of malignancy. ASSESSMENT: BI-RADS 2: Benign RECOMMENDATION: Routine annual mammography screening. This patient's information was entered into a reminder system with a target due date for their next mammogram.
== END 2022-07-20 12:38 | disposition home or self-care (01) ==
LOC: HO.MAMMO 12:37
PROVIDERS: PCP Internal Medicine; Visit Provider Internal Medicine
DX: Z12.31 Encounter for screening mammogram for malignant neoplasm of breast (principal)
CPT/HCPCS: 77063; 77067

== ENCOUNTER → 2022-08-01 12:55 | Outpatient (BNVA) | payer MEDICAID, SELFPAY | PROVIDERS: PCP Internal Medicine; Visit Provider Nurse Practitioner Family | DX: G47.33 Obstructive sleep apnea (adult) (pediatric) (principal) | CPT/HCPCS: 99212 ==

== ENCOUNTER → 2022-08-16 10:58 | Outpatient (BNVA) | payer MEDICAID, SELFPAY | PROVIDERS: Visit Provider Physician Assistant | DX: E66.01 Morbid (severe) obesity due to excess calories (principal); Z68.43 Body mass index [BMI] 50.0-59.9, adult; E11.9 Type 2 diabetes mellitus without complications; I10 Essential (primary) hypertension; E78.5 Hyperlipidemia, unspecified; G47.33 Obstructive sleep apnea (adult) (pediatric); Z79.4 Long term (current) use of insulin; Z98.84 Bariatric surgery status | CPT/HCPCS: 99202 ==

== ENCOUNTER → 2022-09-07 11:08 | Outpatient (BNVA) | payer MEDICAID, SELFPAY | PROVIDERS: Visit Provider Physician Assistant | DX: E66.01 Morbid (severe) obesity due to excess calories (principal); Z98.84 Bariatric surgery status; Z68.43 Body mass index [BMI] 50.0-59.9, adult | CPT/HCPCS: 99212 ==

== ENCOUNTER → 2022-10-01 15:07 | Outpatient (BNVA) | payer MEDICAID, SELFPAY | PROVIDERS: Visit Provider Physician Assistant | DX: E66.01 Morbid (severe) obesity due to excess calories (principal); Z68.43 Body mass index [BMI] 50.0-59.9, adult; E11.9 Type 2 diabetes mellitus without complications; Z79.4 Long term (current) use of insulin; Z98.84 Bariatric surgery status | CPT/HCPCS: 83013; 99212 ==

== ENCOUNTER 2022-10-01 16:26 | Outpatient (REF) | payer MEDICAID, SELFPAY ==
[2022-10-03 14:42] LABS: H Pylori Breath Test Negative (Negative)
== END 2022-10-01 16:27 | disposition home or self-care (01) ==
LOC: HO.LNP 16:26
PROVIDERS: Visit Provider Physician Assistant
DX: E66.01 Morbid (severe) obesity due to excess calories (principal); Z98.84 Bariatric surgery status
CPT/HCPCS: 83013

== ENCOUNTER → 2022-10-05 11:15 | Outpatient (BNVA) | payer MEDICAID, SELFPAY | PROVIDERS: Visit Provider Dietitian, Registered | DX: E66.01 Morbid (severe) obesity due to excess calories (principal); E11.9 Type 2 diabetes mellitus without complications; Z71.3 Dietary counseling and surveillance | CPT/HCPCS: 97802 ==

== ENCOUNTER 2022-11-12 13:23 | Outpatient (REF) | payer MEDICAID, SELFPAY ==
[2022-11-13 06:51] LABS: Glucose, Whole Blood 154 mg/dL (60-115)
== END 2022-11-12 13:24 | disposition home or self-care (01) ==
LOC: HO.CT 13:23
PROVIDERS: Visit Provider Emergency Medicine
DX: R10.12 Left upper quadrant pain (principal)
CPT/HCPCS: 82947

== ENCOUNTER 2022-11-12 15:42 | Emergency (ER) | payer MEDICAID, SELFPAY ==
[2022-11-12 15:52] VITALS: BP 89/58; PULSE 79; RESP 18; TEMP 36.5; O2SAT 97; BMI 47.9
--- NOTE | 2022-11-12 16:06 | ECG_ITS ---
Test Reason : HYPOTENSION Blood Pressure : / mmHG Vent. Rate : 078 BPM Atrial Rate : 078 BPM P-R Int : 176 ms QRS Dur : 082 ms QT Int : 406 ms P-R-T Axes : 040 005 023 degrees QTc Int : 462 ms Normal sinus rhythm Normal ECG When compared with ECG of 14-SEP-2021 12:51, No significant change was found Referred By: Marquise Smith Electronically Signed By:Tommy Gautam
[2022-11-12] MEDS: 0.9 % Sodium Chloride 1,000 ML 999 ML IV ×2 (16:15→16:41)
--- NOTE | 2022-11-12 16:35 | ED_ITS ---
HPI - Weakness General Chief complaint: Weakness Stated complaint: drowziness Time Seen by Provider: 11/12/22 16:22 History of Present Illness HPI Narrative: Patient is a 57-year-old female with a history of lap band history of obstructive sleep apnea patient was to get a CT scan of the abdomen she is unsure why she is getting the CT scan presented after being found very lethargic having a low blood pressure. Patient claims she had some generalized malaise yesterday. No headaches today. No fever. No coughing or congestion. No abdominal pain. No pain on urination. Denies using any recreational drugs. Denies drinking any alcohol. Feel weak and tired. Sent to the emergency department for further evaluation. No history of HI in the past. History of hyperlipidemia. History of diabetes. Patient is of a larger size. She weighs 123 kg and is 5 ft 3 in size her BMI is 48 Related Data Home Medications Medication Instructions Recorded Confirmed albuterol sulfate 90 mcg/actuation 1 puff inhalation QID PRN Wheezing 07/14/20 08/16/22 aerosol inhaler (Proventil HFA) clonazepam 1 mg tablet 1 mg PO BID 01/16/21 08/16/22 cyclobenzaprine 5 mg tablet 5 mg PO TID PRN 08/01/22 08/16/22 tizanidine 4 mg tablet 4 mg PO Q8H PRN 08/01/22 08/16/22 CPAP (CPAP Machine/Device) 08/08/22 08/16/22 alcohol swabs (Alcohol Prep Pads) 0 pad topical DIRECTED 08/08/22 fluticasone 250 mcg-salmeterol 50 1 ea inhalation 08/08/22 08/16/22 mcg/dose blistr powdr for inhalation (Advair Diskus) gabapentin 300 mg capsule 900 mg PO BEDTIME 08/08/22 08/16/22 lancets 33 gauge (TRUEplus Lancets) #100 ea 08/08/22 lisinopril 10 1 tab PO QAM 08/08/22 08/16/22 mg-hydrochlorothiazide 12.5 mg tablet prazosin 5 mg capsule 5 mg PO BEDTIME 08/08/22 08/16/22 propranolol 40 mg tablet 40 mg PO BID 08/08/22 08/16/22 lisinopril 20 1 tab PO QAM 10/01/22 mg-hydrochlorothiazide 25 mg tablet Previous Rx's Medication Instructions Recorded metformin 1,000 mg tablet 1,000 mg PO BID #60 tabs 08/11/20 ibuprofen 600 mg tablet 600 mg PO Q6H PRN pain #20 tabs 03/14/21 lancets 28 gauge (FreeStyle #100 ea 12/22/21 Lancets) atorvastatin 20 mg tablet 20 mg PO BEDTIME #30 tabs 02/13/22 pen needle, diabetic 32 gauge x 1 ea miscellaneous DAILY #100 ea 05/14/22 (Pentips) blood sugar diagnostic (FreeStyle #100 ea 08/09/22 Lite Strips) dulaglutide 3 mg/0.5 mL 3 mg (0.5 mL) subcut QWEEK #2 mL 09/17/22 subcutaneous pen injector (Trulicity) empagliflozin 10 mg tablet 10 mg PO QAM #30 tabs 09/17/22 (Jardiance) insulin degludec 200 unit/mL (3 26 unit (0.13 mL) subcut BEDTIME 09/17/22 mL) subcutaneous pen (Tresiba #9 mL FlexTouch U-200 insulin) Allergies Allergy/AdvReac Type Severity Reaction Status Date / Time No Known Allergies Allergy Verified 10/01/22 15:22 Review of Systems Review of Systems: Positive generalized malaise weakness Yes all other systems are reviewed and are negative PMFSH Past Medical History Attestation statement: The following information was validated with the patient. Medical History Anxiety Asthma Chronic pain syndrome Depression Diabetes mellitus type 2, controlled, without complications Disc degeneration, lumbar Epilepsy Essential hypertension Gender dysphoria Hip osteoarthritis History of tremor Hyperlipidemia LDL goal <100 Hypertension Illiterate Morbid obesity due to excess calories VELASQUEZ on CPAP Panic attacks Sacroiliitis Spondylosis 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 myelopathy Vitamin D deficiency Surgical History History of esophagogastroduodenoscopy (EGD) Hx of laparoscopic gastric banding Family History Family History Father CVD (cardiovascular disease) Mother Hypertension Social History Social History Household Members: None Are you a primary critical care physician assistant to a significant other at home: No Do you presently have visiting nurse or other home services: Yes Alcohol intake: former Patient Tobacco Use Status: Former Tobacco user Quit Date: 07/13/2020 Substance Use Type: Marijuana Physical Exam Vital Signs: Vital Signs: Last Vital Signs Temp 97.7 F 11/12/22 15:52 Pulse 77 11/12/22 16:39 Resp 19 11/12/22 16:39 BP 87/55 L 11/12/22 16:39 Pulse Ox 98 11/12/22 16:39 O2 Del Method 11/12/22 16:39 BMI result Body Mass Index 47.9 Appearance: Alert. Oriented X3. No acute distress. Eyes: Pupils equal, round and reactive to light. ENT: Pharynx normal. Neck: Normal inspection. Neck supple. No lymph nodes noted. No crepitus CVS: Normal heart rate and rhythm. Pulses normal. Normal S1 and S2 Respiratory: No respiratory distress. Breath sounds normal. No Wheezing. No rales Abdomen: Soft and nontender. No rigidity. No distention. good BS x4 Skin: Skin warm and dry. Normal skin color. Normal skin turgor. Extremities: No lower extremity edema. Neurovascular intact to all extremities. No Lacerations. No Rash Neuro: Oriented X 3. No motor deficit. No sensory deficit. Moving all extermities. No slurred speech Medications Administered Discontinued Medications Generic Name Dose Route Start Last Admin Trade Name Freq PRN Reason Stop Dose Admin Sodium Chloride 1,000 mls @ 999 mls/hr 11/12/22 16:05 11/12/22 16:15 Ns IV 11/12/22 17:05 999 mls/hr .Q1H1M STA Administration Sodium Chloride 1,000 mls @ 999 mls/hr 11/12/22 16:06 11/12/22 16:41 Ns IV 11/12/22 17:06 999 mls/hr .Q1H1M STA Administration Medical Decision Making Medical Decision Making MDM Narrative: Positive generalized malaise weakness status post lap band surgery many years ago presents today with having generalized low blood pressure while getting a CT scan weakness. Her sugar was greater than 100 there is no evidence for hypoglycemia. Patient feels generally weak without any fever no chills. She denies any recreational drug use denies any alcohol. Labs are pending. Will give IV fluids patient's blood pressure is approximately 90/50. An EKG was done. My interpretation patient's EKG showed a sinus rhythm heart rate was 80 CO QRS QT within normal limits there is no acute ST segment elevation. Patient is neurologically intact no focal weakness abdomen is soft nontender. Labs are being checked. Will check urine for urinary tract infection will check COVID patient does not have any coughing upper respiratory symptom at this time. Patient was getting IV fluids. Patient's lactate elevated. BUN and creatinine elevated question dehydration. Patient alcohol was negative. Troponin was negative. Ammonia 28 no signs hepatic encephalopathy. About to check for additional signs of infection versus dehydration versus medication causing patient's elevated lactate. She does not want to be treated anymore. She ripped out her own IV walked out of the emergency department. Did not want to listen to provider. Patient eloped from the ED. Differential Diagnosis Differential Diagnoses: The differential diagnosis associated with the presentat ion includes Infection, hypoglycemia, dehydration, recreational drug use Admission/Observation Consideration of admission/observation: Escalation of care including admission/observation considered Lab Data MDM Lab Attestation statement: I reviewed the patient's lab results. 11/12/22 16:27 11/12/22 16:27 Labs: Lab Results 11/12/22 11/12/22 11/12/22 Range/Units 16:27 16:27 16:27 WBC 10.7 (4.8-10.8) X10*3/uL RBC 4.76 (4.20-5.50) X10*6/uL Hgb 11.8 L (12.0-16.0) g/dl Hct 38.8 (37.0-47.0) % MCV 81.5 (80.0-98.0) fL MCH 24.8 L (27.0-33.0) pg MCHC 30.4 L (31.0-35.0) g/dl RDW 15.5 (11.0-16.0) % Plt Count 302 (160-400) X10*3/uL MPV 10.6 (9.4-12.3) fL Immature Gran % (Auto) 0.4 (0.0-0.4) % Neut % (Auto) 57.2 (45-73) % Lymph % (Auto) 33.7 (20-40) % [facility] % (Auto) 5.3 (2-11) % Eos % (Auto) 3.0 (0-4) % Baso % (Auto) 0.4 (0-2) % Lymph # (Auto) 3.6 (1.2-4.9) X10*3/uL [facility] # (Auto) 0.6 (0.1-1.2) X10*3/uL Eos # (Auto) 0.3 (0.0-0.4) X10*3/uL Baso # (Auto) 0.0 (0.0-0.2) X10*3/uL Abs Immat Gran (auto) 0.04 H (0.00-0.03) X10*3/uL Absolute Neuts (auto) 6.2 (2.0-8.3) x10*3/uL Absolute Nucleated RBC 0.000 (0.0-0.012) X10*3/uL Nucleated RBC % (auto) 0.0 (0.0-0.2) /100WBC PT (10.0-13.1) SEC INR (0.9-1.1) APTT (26.0-36.4) SEC Sodium 139 (135-145) mmol/L Potassium 4.2 (3.3-5.1) mmol/L Chloride 105 (96-108) mmol/L Carbon Dioxide 20 L (22-29) mmol/L Anion Gap 18 (12-20) BUN 21 H (9-16) mg/dL Creatinine 1.60 H (0.5-1.4) mg/dL Estim Creat Clear Calc 48.1 Estimated GFR 33 Random Glucose 161 H (60-115) mg/dL Lactic Acid 4.3 H* (0.5-2.0) mmol/L Calcium 9.0 D (8.4-10.2) mg/dL Total Bilirubin 0.4 (0.0-1.0) mg/dL AST 27 (5-31) U/L ALT 30 (0-31) U/L Alkaline Phosphatase 55 (39-117) U/L Ammonia (13-55) umol/L Troponin I High Sens (<3.5-17.0) ng/L Total Protein 6.9 (6.5-8.0) g/dL Albumin 3.8 (3.5-5.0) g/dL Ethyl Alcohol < 10 mg/dL 11/12/22 11/12/22 11/12/22 Range/Units 16:27 16:27 16:27 WBC (4.8-10.8) X10*3/uL RBC (4.20-5.50) X10*6/uL Hgb (12.0-16.0) g/dl Hct (37.0-47.0) % MCV (80.0-98.0) fL MCH (27.0-33.0) pg MCHC (31.0-35.0) g/dl RDW (11.0-16.0) % Plt Count (160-400) X10*3/uL MPV (9.4-12.3) fL Immature Gran % (Auto) (0.0-0.4) % Neut % (Auto) (45-73) % Lymph % (Auto) (20-40) % [facility] % (Auto) (2-11) % Eos % (Auto) (0-4) % Baso % (Auto) (0-2) % Lymph # (Auto) (1.2-4.9) X10*3/uL [facility] # (Auto) (0.1-1.2) X10*3/uL Eos # (Auto) (0.0-0.4) X10*3/uL Baso # (Auto) (0.0-0.2) X10*3/uL Abs Immat Gran (auto) (0.00-0.03) X10*3/uL Absolute Neuts (auto) (2.0-8.3) x10*3/uL Absolute Nucleated RBC (0.0-0.012) X10*3/uL Nucleated RBC % (auto) (0.0-0.2) /100WBC PT 11.5 (10.0-13.1) SEC INR 1.0 (0.9-1.1) APTT 32.9 (26.0-36.4) SEC Sodium (135-145) mmol/L Potassium (3.3-5.1) mmol/L Chloride (96-108) mmol/L Carbon Dioxide (22-29) mmol/L Anion Gap (12-20) BUN (9-16) mg/dL Creatinine (0.5-1.4) mg/dL Estim Creat Clear Calc Estimated GFR Random Glucose (60-115) mg/dL Lactic Acid (0.5-2.0) mmol/L Calcium (8.4-10.2) mg/dL Total Bilirubin (0.0-1.0) mg/dL AST (5-31) U/L ALT (0-31) U/L Alkaline Phosphatase (39-117) U/L Ammonia 28 (13-55) umol/L Troponin I High Sens < 3.5 (<3.5-17.0) ng/L Total Protein (6.5-8.0) g/dL Albumin (3.5-5.0) g/dL Ethyl Alcohol mg/dL Independent Interpretation I performed an independent interpretation of an: EKG Interpretation: Sinus rhythm heart rate is 80 CO QRS QT within normal limits there is no acute ST segment elevation noted. Discharge Plan Discharge Clinical Impression: Weakness Patient Disposition: Elopement Prescriptions: No Action metformin 1,000 mg tablet 1,000 mg PO BID Qty: 60 2RF atorvastatin 20 mg tablet 20 mg PO BEDTIME Qty: 30 11RF pen needle, diabetic [Pentips] 32 gauge x needle 1 ea miscellaneous DAILY Qty: 100 1RF (DME) FreeStyle Lite Strips Strip See Rx Instructions .ROUTE .MEDSUPPLY Qty: 100 0RF Rx Instructions: As directed three times a day Tresiba FlexTouch U-200 200 unit/mL (3 mL) insulin pen 26 unit SUBCUT BEDTIME Qty: 9 3RF Trulicity 3 mg/0.5 mL pen injector 3 mg subcut QWEEK Qty: 2 5RF Rx Instructions: Please administer in evening Jardiance 10 mg tablet 10 mg PO QAM Qty: 30 6RF albuterol sulfate [Proventil HFA] 90 mcg/actuation Hfa Aerosol Inhaler 1 puff INHALATION QID PRN (Reason: Wheezing) ibuprofen 600 mg tablet 600 mg PO Q6H PRN (Reason: pain) Qty: 20 0RF clonazepam 1 mg tablet 1 mg PO BID (DME) lancets [FreeStyle Lancets] 28 gauge misc See Rx Instructions .ROUTE .MEDSUPPLY Qty: 100 11RF Rx Instructions: Three times a data day lisinopril-hydrochlorothiazide 20-25 mg tablet 1 tab PO QAM tizanidine 4 mg tablet 4 mg PO Q8H PRN cyclobenzaprine 5 mg tablet 5 mg PO TID PRN (DME) CPAP Machine/Device Device See Rx Instructions .Route Rx Instructions: As directed lisinopril-hydrochlorothiazide 10-12.5 mg tablet 1 tab PO QAM prazosin 5 mg capsule 5 mg PO BEDTIME fluticasone propion-salmeterol [Advair Diskus] 250-50 mcg/dose blister with device 1 ea inhalation (DME) lancets [TRUEplus Lancets] 33 gauge misc See Rx Instructions .ROUTE TID Qty: 100 Rx Instructions: As directed alcohol swabs [Alcohol Prep Pads] Pads, Medicated 0 pad topical DIRECTED gabapentin 300 mg capsule 900 mg PO BEDTIME propranolol 40 mg tablet 40 mg PO BID Stand Alone Forms: Against Medical Advice
[2022-11-12 16:37] LABS: MANUAL DIFF FLAG NO
[2022-11-12 16:39] VITALS: BP 87/55; PULSE 77; RESP 19; O2SAT 98
[2022-11-12 16:41] LABS: Basophils Percent Auto 0.4 % (0-2); Eosinophils Absolute Auto 0.3 X10*3/uL (0.0-0.4); Hematocrit 38.8 % (37.0-47.0); Hemoglobin 11.8 g/dl (12.0-16.0); Imm Gran Abs Auto 0.04 X10*3/uL (0.00-0.03); Imm Gran Pct Auto 0.4 % (0.0-0.4); Lymphocytes Absolute Auto 3.6 X10*3/uL (1.2-4.9); Lymphocytes Percent Auto 33.7 % (20-40); Mean Corpuscular HGB Conc 30.4 g/dl (31.0-35.0); Mean Corpuscular Hemoglobin 24.8 pg (27.0-33.0); Mean Corpuscular Volume 81.5 fL (80.0-98.0); Mean Platelet Volume 10.6 fL (9.4-12.3); Monocytes Absolute Auto 0.6 X10*3/uL (0.1-1.2); Monocytes Percent Auto 5.3 % (2-11); Neutrophils Absolute Auto 6.2 x10*3/uL (2.0-8.3); Neutrophils Percent Auto 57.2 % (45-73); Platelet Count 302 X10*3/uL (160-400); Red Blood Count 4.76 X10*6/uL (4.20-5.50); Red Cell Distribution Width 15.5 % (11.0-16.0); White Blood Count 10.7 X10*3/uL (4.8-10.8)
[2022-11-12 16:45] LABS: Prothrombin Time 11.5 SEC (10.0-13.1)
[2022-11-12 16:47] LABS: Ammonia 28 umol/L (13-55)
[2022-11-12 16:48] LABS: Partial Thromboplastin Time 32.9 SEC (26.0-36.4)
[2022-11-12 16:56] LABS: Lactic Acid 4.3 mmol/L (0.5-2.0)
[2022-11-12 17:03] LABS: Troponin-I High Sensitivity < 3.5 ng/L (<3.5-17.0)
[2022-11-12 17:14] LABS: Alanine Aminotransferase 30 U/L (0-31); Albumin Level 3.8 g/dL (3.5-5.0); Alkaline Phosphatase 55 U/L (39-117); Anion Gap 18 (12-20); Aspartate Amino Transferase 27 U/L (5-31); Bilirubin Total 0.4 mg/dL (0.0-1.0); Blood Urea Nitrogen 21 mg/dL (9-16); Carbon Dioxide 20 mmol/L (22-29); Chloride 105 mmol/L (96-108); Creatinine Clr Calc Pharmacy 48.1; Estimated Glomerular Filt Rate 33; Ethanol < 10 mg/dL; Glucose Random 161 mg/dL (60-115); Potassium 4.2 mmol/L (3.3-5.1); Sodium 139 mmol/L (135-145); Total Protein 6.9 g/dL (6.5-8.0)
[2022-11-12 17:24] LABS: Glucose, Whole Blood 144 mg/dL (60-115)
[2022-11-12 18:35] LABS: Reflex Lactate? Lactic Acid Added
== END 2022-11-12 17:25 | disposition left against medical advice (07) ==
LOC: HO.ED 17:23
PROVIDERS: Physician Assistant; Emergency Provider Emergency Medicine Emergency Medical Services
DX: R53.1 Weakness (principal); E11.9 Type 2 diabetes mellitus without complications; I95.9 Hypotension, unspecified; Z87.891 Personal history of nicotine dependence; Z98.84 Bariatric surgery status; Z79.899 Other long term (current) drug therapy; Z79.4 Long term (current) use of insulin
CPT/HCPCS: 36415; 80053; 82077; 82140; 82947; 83605; 84484; 85025; 85610; 85730; 87040; 93005; 96360; 99284

== ENCOUNTER → 2022-12-21 11:01 | Outpatient (BNVA) | payer MEDICAID, SELFPAY | PROVIDERS: Visit Provider Internal Medicine Endocrinology, Diabetes & Metabolism | DX: E11.65 Type 2 diabetes mellitus with hyperglycemia (principal) | CPT/HCPCS: 82947; 83036; 99212 ==

== ENCOUNTER → 2023-01-24 08:59 | Outpatient (BNVA) | payer MEDICAID, SELFPAY | PROVIDERS: Visit Provider Physician Assistant | DX: E66.01 Morbid (severe) obesity due to excess calories (principal); E11.9 Type 2 diabetes mellitus without complications; I10 Essential (primary) hypertension; Z79.4 Long term (current) use of insulin; Z68.42 Body mass index [BMI] 45.0-49.9, adult | CPT/HCPCS: 99212 ==

== ENCOUNTER 2023-01-31 10:04 | Outpatient (REF) | payer MEDICAID, SELFPAY ==
[2023-01-31 12:00] LABS: Creatinine Urine 93.04 mg/dL; Microalbumin Urine < 5.0 mg/L
[2023-01-31 12:14] LABS: Anion Gap 14 (12-20); Blood Urea Nitrogen 17 mg/dL (9-16); Calcium 9.6 mg/dL (8.4-10.2); Carbon Dioxide 22 mmol/L (22-29); Chloride 110 mmol/L (96-108); Cholesterol 128 mg/dL; Estimated Glomerular Filt Rate 47; Glucose Random 201 mg/dL (60-115); HDL Cholesterol 33 mg/dL; LDL Cholesterol Calculated 67 mg/dl; Potassium 4.2 mmol/L (3.3-5.1); Sodium 142 mmol/L (135-145); Triglycerides 144 mg/dL
== END 2023-01-31 10:05 | disposition home or self-care (01) ==
LOC: HO.LAB 10:04
PROVIDERS: Internal Medicine Endocrinology, Diabetes & Metabolism; Visit Provider Physician Assistant
DX: E11.65 Type 2 diabetes mellitus with hyperglycemia (principal)
CPT/HCPCS: 36415; 80048; 80061; 82043

== ENCOUNTER 2023-02-04 19:26 | Emergency (ER) | payer MEDICAID, SELFPAY ==
[2023-02-04 21:09] VITALS: BP 152/94; PULSE 77; RESP 16; TEMP 36.5; O2SAT 98; BMI 47.4
== END 2023-02-05 00:44 | disposition left against medical advice (07) ==
LOC: HO.ED 02-05 00:24
PROVIDERS: Emergency Provider Emergency Medicine
DX: R10.9 Unspecified abdominal pain (principal)
CPT/HCPCS: 99281

== ENCOUNTER → 2023-02-21 09:40 | Outpatient (BNVA) | payer MEDICAID, SELFPAY | PROVIDERS: Visit Provider Physician Assistant | DX: E66.01 Morbid (severe) obesity due to excess calories (principal); Z68.43 Body mass index [BMI] 50.0-59.9, adult | CPT/HCPCS: 99212 ==

== ENCOUNTER → 2023-02-22 09:40 | Outpatient (BNVA) | payer MEDICAID, SELFPAY | PROVIDERS: Visit Provider Counselor Mental Health ==

== ENCOUNTER → 2023-03-08 13:38 | Outpatient (BNVA) | payer OTHER, MEDICAID, SELFPAY | PROVIDERS: Visit Provider Counselor Mental Health ==

== ENCOUNTER 2023-03-14 07:14 | Outpatient (REF) | payer MEDICAID, SELFPAY ==
--- NOTE | ~2023-03-14 | US_ITS ---
EXAMINATION: US COMPLETE ABDOMEN WITH LIVER ELASTOGRAPHY CLINICAL INFORMATION: Morbid obesity. COMPARISON: Abdominal ultrasound dated 01/13/2018. TECHNIQUE: Real-time imaging of the abdominal viscera. Noninvasive ultrasound liver fibrosis assessment is performed using Alen ElastPQ point quantification shear wave elastography (2D-SWE) with a C5-2 MHz transducer. Multiple elastography samples are obtained. FINDINGS: PANCREAS: Normal. The visualized pancreatic head and body are normal in appearance. The remainder of the pancreas is obscured from visualization by the overlying bowel gas. ABDOMINAL AORTA: The proximal, middle, and distal aortic segments are normal in caliber. INFERIOR VENA CAVA: Visualized portions are normal. LIVER: There is hepatomegaly. The liver shows normal contour and generally increased echogenicity, with pericholecystic sparing. No focal lesion or intrahepatic biliary duct dilatation. The right lobe measures 1.99 cm in length. The left lobe measures 0.09 cm in length. Portal flow is towards the liver (hepatopetal). Shear wave liver elastography median stiffness is m/s (reference: normal median stiffness is 1.3 m/s or less). IQR/median stiffness to assess sampling precision is (reference: good quality data set is IQR/median stiffness of 0.15 or less). GALLBLADDER: Normal. The gallbladder is partially contracted, without evidence of stones, sludge, polyps, wall thickening or pericholecystic fluid. COMMON BILE DUCT: Normal in caliber measuring 0.05 cm in diameter. RIGHT KIDNEY: Normal. No hydronephrosis. No renal calculi or focal parenchymal lesions. The kidney measures 11.1 cm in maximum dimension. A 1.2 cm benign, simple right renal cyst is seen. LEFT KIDNEY: Normal. No hydronephrosis. No renal calculi or focal parenchymal lesions. The kidney measures 11.1 cm in maximum dimension. SPLEEN: Normal. The spleen measures 10.2 cm in maximum dimension. FREE FLUID: None. US/US abdomen comp w elastography IMPRESSION: 1. There is generalized increase in hepatic echotexture, consistent with fatty infiltration or hepatocellular disease. Please correlate clinically. Characteristic pericholecystic sparing favors fatty infiltration. No focal hepatic mass or intrahepatic biliary dilatation is seen. 2. There is hepatomegaly. 3. Liver elastography: Measurements are suggestive of compensated advanced chronic liver disease but need further test for confirmation. 4. At the lower pole of the right kidney, a 1.2 cm benign, simple cyst is seen, for which no follow-up is recommended. REFERENCE: Society of Radiologists in Ultrasound Liver Stiffness Thresholds (2020): LIVER STIFFNESS THRESHOLDS: *Liver Stiffness equal or less than 1.3 m/s: High probability of being normal. *Liver Stiffness less than 1.7 m/s: In the absence of other known clinical signs, rules out compensated advanced chronic liver disease. *Liver Stiffness 1.7-2.1 m/s: Suggestive of compensated advanced chronic liver disease but need further test for confirmation. *Liver Stiffness over 2.1 m/s: Rules in compensated advanced chronic liver disease. *Liver Stiffness over 2.4 m/s: Suggestive of clinically significant portal hypertension. QUALITY OF DATA SET: *IQR/Median value equal or less than 0.15 implies a quality data set. *IQR/Median value over 0.15 implies a poor quality data set. SIGNIFICANT CHANGE FROM PRIOR EXAM: Significant change if liver stiffness measurement is 10% or greater from prior exam. OTHER CONSIDERATIONS: The stage of liver fibrosis may be overestimated in the setting of acute hepatitis, liver inflammation, elevated liver function tests, hepatic vascular congestion, obstructive cholestasis, non-fasting state, and infiltrative diseases such as amyloidosis and lymphoma. In some patients with NAFLD, the liver stiffness thresholds for compensated advanced chronic liver disease may be lower. In causes other than viral hepatitis and NAFLD, liver stiffness thresholds are not well established.
== END 2023-03-14 07:15 | disposition home or self-care (01) ==
LOC: HO.US 07:14
PROVIDERS: Visit Provider Physician Assistant
DX: E66.01 Morbid (severe) obesity due to excess calories (principal); E11.9 Type 2 diabetes mellitus without complications; R56.9 Unspecified convulsions; G47.33 Obstructive sleep apnea (adult) (pediatric); Z79.899 Other long term (current) drug therapy; Z98.84 Bariatric surgery status; Z79.4 Long term (current) use of insulin
CPT/HCPCS: 76705; 76981; 99202

== ENCOUNTER 2023-03-14 14:10 | Outpatient (AMB) | payer MEDICAID, SELFPAY ==
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
[2023-03-14 14:19] VITALS: BP 122/88; PULSE 89; O2SAT 98; BMI 50.0
== END 2023-03-14 14:45 | disposition home or self-care (01) ==
PROVIDERS: PCP Registered Nurse; Visit Provider Psychiatry & Neurology Neurology
DX: R56.9 Unspecified convulsions (principal); G47.33 Obstructive sleep apnea (adult) (pediatric)
CPT/HCPCS: 99204

== ENCOUNTER 2023-03-15 09:01 | Outpatient (AMB) | payer MEDICAID, SELFPAY ==
--- NOTE | 2023-03-15 09:09 | A.OFFVIS_ITS ---
Intake VS Expanded 03/15/23 09:10 Height 5 ft Weight 254 lb 9.6 oz BMI 49.7 BP 136/81 Blood Pressure Location Rt brachial Blood Pressure Position Sitting Pulse 92 Pulse Source Pulse Oximeter Temp 97.2 F Temperature Source Temporal Artery Scan Pulse Oximetry 97 Oxygen Delivery Method Room Air Body Fat 117.8 Body Fat Percentage 46.3 Free Fat Mass 136.6 Muscle Mass 129.8 Visceral Mass 18.0 Water Mass 97.0 BMR 1,919 Intake Visit Reasons: (OV) SWL follow up Allergies No Known Allergies Allergy (Verified 03/15/23 09:11) HPI HPI Comments History of Present Illness Details SWL follow up, RELAY TESTER weight of 268 s/p LSG in past. She was sleep medicine yesterday needs t o continue CPAP wi th new machine and EEG ordered for s eizure like activi ty. Patient is tea rful this am. No w has gym membersh ip hasn't used it yet. Did not start you tube exercise s yet - can not re ad and BUSINESS APPLICATIONS DEVELOPER did not help her Meal pl an - stopped coffe e 8am - shake 12pm - shake 5pm - ktae t and vegetables ( unalbe to tell me the names of what she eats, with mil k (?type)_ has ano ther shake after d inner Pre op wo rk up completed as follows: SWL clas ses -? appt s? - Aleisha Wiggins murtaza - [facility] . ?Saw Gabbie 03/08 - not cl eared, needs follo w up appts. next . RD appts - 2 /3, not cleared H pylori - negative Labs - not done ye t CXR and ECG - tania normal ULS and UGI - done yesterd ay, no results yet . [facility] Medical History (Updated 03/14/23 @ 14:38 by Nell Duncan MD) Anxiety Asthma Chronic pain syndrome Depression Diabetes mellitus type 2, controlled, without complications Disc degeneration, lumbar Epilepsy Essential hypertension Gender dysphoria Hip osteoarthritis History of tremor Hyperlipidemia LDL goal <100 Hypertension Illiterate Morbid obesity due to excess calories VELASQUEZ on CPAP Panic attacks Sacroiliitis Seizures Spondylosis 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 myelopathy Vitamin D deficiency Surgical History History of esophagogastroduodenoscopy (EGD) Hx of laparoscopic gastric banding Family History Father CVD (cardiovascular disease) Mother Hypertension Social History Household Members: None Are you a primary career and guidance counselor to a significant other at home: No Do you presently have visiting nurse or other home services: Yes Alcohol intake: former Patient Tobacco Use Status: Former Tobacco user Quit Date: 07/13/2020 Substance Use Type: Marijuana Physical Exam Vital Signs: Last Vital Signs Temp 97.2 F 03/15/23 09:10 Pulse 92 03/15/23 09:10 BP 136/81 03/15/23 09:10 Pulse Ox 97 03/15/23 09:10 Oxygen Delivery Method Room Air 03/15/23 09:10 BMI result Body Mass Index 49.7 Assessment & Plan Assessment & Plan (1) Morbid obesity due to excess calories: Code(s): E66.01 - Morbid (severe) obesity due to excess calories Plan: Pt has started SWL for revision of previous gastric banding. Pt is visibly trembling during appointment today, tearful talking about issues with her family members. She has many conditions that need her attention right now. 1.Need to get new CPAP machine 2. New seizure activity, EEG ordred 3. Has follow up with Gabbie on March 19. I told her that she is not an appropriate candidate for revision surgery at this time and needs to resolve present conditions. I told her that I was concerned that this program is causing her more stress at a time when she needs to be focusing on other things. She can continue appts with Gabbie - per her recommendations, but no other appointments will be made in our office toward bariatric surgery. Patient is morbidly obese and is not considered stable at this time. I spent 30 minutes in total with patient reviewing/updating records, examining the patient and counseling the patient on weight management as detailed above. Patient was seen alone today, no BUSINESS APPLICATIONS DEVELOPER in room. (2) Hx of laparoscopic gastric banding: Comment: 1999 and 2013 Code(s): Z98.84 - Bariatric surgery status (3) Seizures: Comment: ? history Code(s): R56.9 - Unspecified convulsions Coding Level of Care Code Est Pt Level 4 (58892) Diagnoses Morbid obesity due to excess calories E66.01 Hx of laparoscopic gastric banding Z98.84 Seizures R56.9
[2023-03-15 09:10] VITALS: BP 136/81; PULSE 92; TEMP 36.2; O2SAT 97; BMI 49.7
== END 2023-03-15 09:49 | disposition home or self-care (01) ==
PROVIDERS: Visit Provider Physician Assistant
DX: E66.01 Morbid (severe) obesity due to excess calories (principal); Z98.84 Bariatric surgery status; R56.9 Unspecified convulsions
CPT/HCPCS: 99214

== ENCOUNTER → 2023-03-15 09:01 | Outpatient (BNVA) | payer MEDICAID, SELFPAY | PROVIDERS: Visit Provider Physician Assistant | DX: E66.01 Morbid (severe) obesity due to excess calories (principal); R56.9 Unspecified convulsions; Z98.84 Bariatric surgery status; Z68.42 Body mass index [BMI] 45.0-49.9, adult | CPT/HCPCS: 99214 ==

== ENCOUNTER 2023-03-19 10:40 | Outpatient (AMB) | payer MEDICAID, SELFPAY ==
--- NOTE | 2023-03-19 11:07 | MHC.AMDMED ---
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: Dm2 Allergies No Known Allergies Allergy (Verified 03/15/23 09:11) HPI Comprehensive Diabetes Asmnt Most Recent Diabetes Results: Microalb/Creat Ratio TNP 01/31/23 Cholesterol 128 mg/dL 01/31/23 HDL Cholesterol 33 mg/dL 01/31/23 Triglycerides 144 mg/dL 01/31/23 Creatinine 1.18 mg/dL (0.5-1.4) 01/31/23 Blood Urea Nitrogen 17 mg/dL (9-16) H 01/31/23 Sodium 142 mmol/L (135-145) 01/31/23 Potassium 4.2 mmol/L (3.3-5.1) 01/31/23 Chloride 110 mmol/L (96-108) H 01/31/23 Carbon Dioxide 22 mmol/L (22-29) 01/31/23 Calcium 9.6 mg/dL (8.4-10.2) 01/31/23 [facility] Medical History (Updated 03/14/23 @ 14:38 by Nell Duncan MD) Anxiety Asthma Chronic pain syndrome Depression Diabetes mellitus type 2, controlled, without complications Disc degeneration, lumbar Epilepsy Essential hypertension Gender dysphoria Hip osteoarthritis History of tremor Hyperlipidemia LDL goal <100 Hypertension Illiterate Morbid obesity due to excess calories VELASQUEZ on CPAP Panic attacks Sacroiliitis Seizures Spondylosis 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 myelopathy Vitamin D deficiency Surgical History History of esophagogastroduodenoscopy (EGD) Hx of laparoscopic gastric banding Family History Father CVD (cardiovascular disease) Mother Hypertension Social History Household Members: None Are you a primary critical care nurse to a significant other at home: No Do you presently have visiting nurse or other home services: Yes Alcohol intake: former Patient Tobacco Use Status: Former Tobacco user Quit Date: 07/13/2020 Substance Use Type: Marijuana Assessment & Plan Assessment & Plan (1) Uncontrolled type 2 diabetes mellitus: Comment: Pt reports she is unable to read/write Code(s): E11.65 - Type 2 diabetes mellitus with hyperglycemia Qualifiers: Glycemic state: with hyperglycemia Qualified Code(s): E11.65 - Type 2 diabetes mellitus with hyperglycemia Plan: CGM Info Instructed Pt on what CGM can and can't do CGM Can: Give Pt minute by minute reading of glucose levels Displays glucose trend arrows that represents the direction glucose levels are fluctuating Give insight on decisions about how to dose insulin CGM cannot: Improve glucose control on its own Completely eliminate the need for all finger sticks Make dosing decision for you CGM is the reading of glucose in the interstitial fluid not actual blood glucose, finger sticks are still necessary when Pt's symptom?s do not match sensor reading and if sensors prompts Pt to do a fingerstick Patient? is interested in the Decom G7 Reviewed guidelines for obtaining CGM Reviewed delay of CGM from fingersticks Reminded pt that if symptoms do not match sensor still needs to check fingersticks. Patient Instructions: Patient will follow-up with general operations manager in 3 weeks for Dexcom G7 set up Coding Level of Care Code Est Pt Level 1 (14753) Diagnoses Uncontrolled type 2 diabetes mellitus E11.65 Glycemic state: with hyperglycemia
== END 2023-03-19 11:21 | disposition home or self-care (01) ==
PROVIDERS: Referring Provider Internal Medicine Endocrinology, Diabetes & Metabolism; Visit Provider Registered Nurse Diabetes Educator
DX: E11.65 Type 2 diabetes mellitus with hyperglycemia (principal)

== ENCOUNTER → 2023-03-19 10:40 | Outpatient (BNVA) | payer MEDICAID, SELFPAY | PROVIDERS: Visit Provider Registered Nurse Diabetes Educator | DX: E11.65 Type 2 diabetes mellitus with hyperglycemia (principal) | CPT/HCPCS: 99211 ==

== ENCOUNTER 2023-04-11 14:49 | Outpatient (AMB) | payer MEDICAID, SELFPAY ==
--- NOTE | 2023-04-11 15:24 | MHC.AMDMED ---
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: No Accompanied by: Other Relationship Allergies No Known Allergies Allergy (Verified 03/15/23 09:11) HPI Comprehensive Diabetes Asmnt Most Recent Diabetes Results: No Data to Display [facility] Medical History (Updated 03/14/23 @ 14:38 by Nell Duncan MD) Anxiety Asthma Chronic pain syndrome Depression Diabetes mellitus type 2, controlled, without complications Disc degeneration, lumbar Epilepsy Essential hypertension Gender dysphoria Hip osteoarthritis History of tremor Hyperlipidemia LDL goal <100 Hypertension Illiterate Morbid obesity due to excess calories VELASQUEZ on CPAP Panic attacks Sacroiliitis Seizures Spondylosis 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 myelopathy Vitamin D deficiency Surgical History History of esophagogastroduodenoscopy (EGD) Hx of laparoscopic gastric banding Family History Father CVD (cardiovascular disease) Mother Hypertension Social History Household Members: None Are you a primary home health caregiver to a significant other at home: No Do you presently have visiting nurse or other home services: Yes Alcohol intake: former Patient Tobacco Use Status: Former Tobacco user Quit Date: 07/13/2020 Substance Use Type: Marijuana Assessment & Plan Assessment & Plan (1) Uncontrolled type 2 diabetes mellitus: Comment: Pt reports she is unable to read/write Code(s): E11.65 - Type 2 diabetes mellitus with hyperglycemia Qualifiers: Glycemic state: with hyperglycemia Qualified Code(s): E11.65 - Type 2 diabetes mellitus with hyperglycemia Plan: Patient at visit to set up an insert Dexcom G7 Instructed patient sensors water proof you can shower, or swim do not submerge sensor in water for over 30 minutes Is sensor falls off cannot put back in you need to replace sensor, customer service number given to patient for sensor replacement Sensor placed on the back of L arm Patient left visit with sensor in warmup Reviewed how to interpret trend arrows Reminded patient that to check finger sticks if symptoms do not match sensor reading. Discussed lag time between finger stick and sensor data.? Instructed patient she should always keep blood glucometer for backup testing if needed Reviewed delay of CGM from fingersticks Reminded pt that if symptoms do not match sensor still needs to check fingersticks. Patient Instructions: Instrucciones para el paciente: CGM proporciona informaci?n sobre el control de la glucosa en lenny a lo beatriz del d?a, incluidas la hiperglucemia y la hipoglucemia. Contin?e controlando la glucosa en lenny seg?n las instrucciones. Siga las pautas de nutrici?n proporcionadas. Informe cualquier molestia de inmediato al proveedor de atenci?n m?dica. Mantente denny hidratado. Puede ba?arse, ducharse, nadar y hacer ejercicio mientras usa el sensor de glucosa. No sumerja el sensor de glucosa en agua traci m?s de 30 minutos. Retire el sensor para miller resonancia magn?camden o miller tomograf?a computarizada. Evite la m?quina de gabe X en los aeropuertos: retire el sensor o solicite la varita Coding Level of Care Code Est Pt Level 1 (16609) Diagnoses Uncontrolled type 2 diabetes mellitus E11.65 Glycemic state: with hyperglycemia
== END 2023-04-11 15:45 | disposition home or self-care (01) ==
PROVIDERS: Visit Provider Registered Nurse Diabetes Educator
DX: E11.65 Type 2 diabetes mellitus with hyperglycemia (principal)

== ENCOUNTER → 2023-04-11 14:49 | Outpatient (BNVA) | payer MEDICAID, SELFPAY | PROVIDERS: Visit Provider Registered Nurse Diabetes Educator | DX: E11.65 Type 2 diabetes mellitus with hyperglycemia (principal) | CPT/HCPCS: 99211 ==

== ENCOUNTER 2023-04-25 08:46 | Outpatient (AMB) | payer MEDICAID, SELFPAY ==
--- NOTE | 2023-04-25 09:28 | A.OFFVIS_ITS ---
Intake Vital Signs 04/25/23 09:29 Height 5 ft Weight 261 lb 3.964 oz BMI 51.0 BP 128/74 Blood Pressure Location Lt brachial Position Sitting Pulse 78 Pulse Source Pulse Oximeter Temp 97.7 F Temp Source Skin Pulse Oximetry (%) 97 Oxygen Delivery Method Room Air Intake Visit Reasons: oa Intake Note: Here for OA follow up. Placing Judge Required: No Accompanied by: Self / Same As Patient Allergies No Known Allergies Allergy (Verified 04/25/23 09:29) Medication List - Last Reconciled 04/25/23 by Puneet Jones MD albuterol sulfate 90 mcg/actuation (Proventil HFA) 1 puff inhalation QID PRN alcohol swabs (Alcohol Prep Pads) 0 pad topical DIRECTED atorvastatin 20 mg PO BEDTIME blood sugar diagnostic (FreeStyle Lite Strips) USE TO TEST BLOOD SUGAR THREE TIMES DAILY cholecalciferol (vitamin D3) 50 mcg PO QAM clonazepam 1 mg PO BID CPAP (CPAP Machine/Device) As directed dulaglutide (Trulicity) 3 mg (0.5 mL) subcut QWEEK dulaglutide (Trulicity) mg subcut QWEEK empagliflozin (Jardiance) 25 mg PO QAM flash glucose scanning reader (Healthcare ITyle Brian 2 [place]) As directed flash glucose sensor (Cursa.meStyle Brian 2 Sensor kit) As directed change every 14 days fluticasone propion-salmeterol 250-50 mcg/dose (Advair Diskus) 1 ea inhalation gabapentin 900 mg PO BEDTIME ibuprofen 600 mg PO Q6H PRN insulin degludec (Tresiba FlexTouch U-200 insulin) 28 units subcut BEDTIME lancets (FreeStyle Lancets) Three times a data day lancets (TRUEplus Lancets) As directed lidocaine 5% 0 patches topical lisinopril-hydrochlorothiazide 20-25 mg 1 tab PO QAM melatonin 5 mg PO QPM olmesartan 5 mg PO QAM pen needle, diabetic (Pentips) 1 ea miscellaneous DAILY prazosin 5 mg PO BEDTIME propranolol 40 mg PO BID psyllium husk (aspartame) 3 gram/5.8 gram (Reguloid (aspartame)) grams PO QAM tizanidine 4 mg PO Q8H PRN HPI HPI Comments History of Present Illness Details The patient presents for evaluation of multiple areas of pain. He had last been seen back in December of 2021. Areas of pain currently include the lower back, the knees, thoracic spine, the hips, and the left hand. He says he was offered corticosteroid injection in the back but is afraid of the injections. He has a low titer positive BARB of 1:40 but no obvious signs of lupus noted in the past. He does have a seizure disorder and does have occasional seizures. The left hand has been hurting now for about a week or 2. He does not know exactly if he fell. He thinks it is a bit swollen. Most of the pain seems to be at the base of the thumb. [facility] Medical History (Updated 04/25/23 @ 10:19 by Puneet Jones MD) Anxiety Asthma Chronic pain syndrome Depression Diabetes mellitus type 2, controlled, without complications Disc degeneration, lumbar Epilepsy Essential hypertension Gender dysphoria Hip osteoarthritis History of tremor Hyperlipidemia LDL goal <100 Hypertension Illiterate Morbid obesity due to excess calories VELASQUEZ on CPAP Panic attacks Sacroiliitis Seizures Spondylosis 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 myelopathy Vitamin D deficiency Surgical History History of esophagogastroduodenoscopy (EGD) Hx of laparoscopic gastric banding Family History Father CVD (cardiovascular disease) Mother Hypertension Social History (Updated 04/25/23 @ 09:37 by RIVAS Spain) Household Members: Children and None Household Members Other:: 2 dogs Are you a primary child care nurse to a significant other at home: No Do you presently have visiting nurse or other home services: Yes Alcohol intake: former Patient Tobacco Use Status: Former Tobacco user Quit Date: 07/13/2020 Substance Use Type: Marijuana Review of Systems Const Details: Low energy, difficulty walking because of back pain. Negative for appetite change, weight change, fever, chills, malaise Card Details: Negative chest pain, edema and syncope Resp Details: Negative for SOB, cough and wheezing GI Details: Negative indigestion/heartburn, nausea, abdominal pain, bowel changes, diarrhea, constipation and bloody stool. Neuro Details: Currently off her seizure med she says. Occasional seizures to occur. Overall generalized low stamina and weakness. Negative for palsy, stroke, changes in speech, tingling Psych Details: Anxiety and depression symptoms continue. She feels they are reasonably controlled. Jorje/Lymph Details: Negative for excessive bruising or bleeding. Physical Exam Vital Signs: Last Vital Signs Temp 97.7 F 04/25/23 09:29 Pulse 78 04/25/23 09:29 BP 128/74 04/25/23 09:29 Pulse Ox 97 04/25/23 09:29 Oxygen Delivery Method Room Air 04/25/23 09:29 BMI result Body Mass Index 51.0 APPEARANCE: Patient in no acute distress EYES no redness, pupils equal and reactive to light, eyelids normal EXTREMITIES: No edema, no calf tenderness, normal peripheral pulses. JOINT EXAM: Cervical Spine:? Full range of motion without pain; no tenderness. Thoracic Spine:? No scoliosis.? No tenderness on palpation. Lumbar Spine:? Alignment normal.? Moderate pain with flexion beyond 45 degrees or with lying on the table. Straight leg raising on either side causes buttock and back pain at about 45 degrees. I do not detect lower extremity weakness or lack of reflexes. Hands: Left: There is pain with range of motion of the thumb. There is moderate tenderness at the base of the thumb and the adjoining thenar eminence. She has no redness. The area looks a bit swollen but not red or warm. There is no bruising. Other joints in the hand do not seem to be swollen or tender. Right: Slight bony enlargement at the base of the thumb without tenderness. There is some minimal nontender bony enlargement at the 2nd, 3rd and 5th D IP joints. No thenar atrophy or sensory loss. No soft tissue swelling, redness or warmth. Wrists:? Left: Mild to moderate pain with flexion at 60 degrees. Most the pain is situated along the thenar eminence and the base of the thumb. Again no redness or warmth. There is some mild swelling around the base of the thumb but no redness, warmth or bruising is appreciated. Right: Pain-free motion to 75 degrees flexion extension. No tenderness or swelling. Elbows: Normal pain-free range of motion without tenderness, swelling, increased warmth or erythema. Shoulders:?? Full range of motion with mild discomfort at the extremes of normal range of motion. There is mild anterior and posterior tenderness without adenopathy, abductor weakness, swelling, increased warmth or erythema. Hips:? Full range of motion without pain. Hip bursa:.? No tenderness. Knees: LEFT:? Normal pain-free range of motion.? Tenderness palpation of mediolateral joint line. No swelling, increased warmth or erythema.? There is no effusion or crepitation RIGHT:??Normal pain-free range of motion.? Tenderness palpation of mediolateral joint line. No swelling, increased warmth or erythema.? There is no effusion or crepitation Ankles:? Normal pain-free range of motion without tenderness, swelling, increased warmth or erythema. Feet: Normal pain-free range of motion without tenderness, swelling, increased warmth or? ?? Tender points:.? Mild tenderness to digital palpation at the trapezius,lateral epicondyle, knees, greater trochanter area bilaterally. ? Results Reviewed Results Reviewed: [address] [address] XRay Report Signed Patient: Hilda Mcmahan MR#: [id number] : 1965 Acct:[id number] Age/Sex: 55 / F ADM Date: 03/30/21 Ordering Physician: Criss Lazaro MD Date of Service: 03/30/21 Procedure(s): XR hand LT min 3V Accession Number(s): [id number] cc: Criss Lazaro MD~ EXAMINATION: XR HAND, LEFT CLINICAL INFORMATION: Left hand pain.? COMPARISON: None? TECHNIQUE: PA, lateral, and oblique views of the left hand. FINDINGS: Mild distal interphalangeal degenerative joint changes are seen. There is no acute fracture or dislocation. The carpal bones are normally aligned. The distal radius and ulna are intact. The soft tissues are unremarkable. XR/XR hand LT min 3V IMPRESSION: Mild distal interphalangeal osteoarthritis. Dictated By: SILVINO SINGLETON MD Assessment & Plan Assessment & Plan (1) Osteoarthritis of both hands: Code(s): M19.041 - Primary osteoarthritis, right hand; M19.042 - Primary osteoarthritis, left hand (2) Hand pain, left: Code(s): M79.642 - Pain in left hand Plan Patient has many areas of pain including the lower back and knees where she likely has some osteoarthritis. The left hand is tender today at the base of t he thumb where there may be some soft tissue swelling perhaps related to a recent injury that she does not recall. There is no obvious signs of an acute inflammatory process. We will get an x-ray of the area. She may need further orthopedic evaluation. For symptom relief I did prescribe some diclofenac gel to put on the affected area twice a day. She has been offered other treatments in pain management but so far has declined. She will follow-up in Rheumatology if there is a significant change in her overall symptoms in the future. Orders: Orders XR hand LT min 3V Today M79.642 - Pain in left hand Medications: New diclofenac sodium 1% to affected joints 1 - 2 grams topical BID PRN 100 grams 3RF pain (scale score 1-3) M19.041 - Primary osteoarthritis, right hand, M19.042 - Primary osteoarthritis, left hand Coding Level of Care Code Est Pt Level 3 (84373) Diagnoses Osteoarthritis of both hands M19.041; M19.042 Hand pain, left M79.642
[2023-04-25 09:29] VITALS: BP 128/74; PULSE 78; TEMP 36.5; O2SAT 97; BMI 51.0
== END 2023-04-25 10:24 | disposition home or self-care (01) ==
PROVIDERS: Visit Provider Internal Medicine Rheumatology
DX: M19.041 Primary osteoarthritis, right hand (principal); M19.042 Primary osteoarthritis, left hand; M79.642 Pain in left hand
CPT/HCPCS: 99213

== ENCOUNTER → 2023-04-25 08:46 | Outpatient (BNVA) | payer MEDICAID, SELFPAY | PROVIDERS: Visit Provider Internal Medicine Rheumatology | DX: M19.041 Primary osteoarthritis, right hand (principal); M19.042 Primary osteoarthritis, left hand; M79.642 Pain in left hand | CPT/HCPCS: 99212 ==

== ENCOUNTER 2023-04-26 15:01 | Outpatient (AMB) | payer MEDICAID, SELFPAY ==
--- NOTE | 2023-04-26 15:34 | MHC.AMDMED ---
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 Accompanied by: Other Relationship Allergies No Known Allergies Allergy (Verified 04/25/23 09:29) HPI Comprehensive Diabetes Asmnt Most Recent Diabetes Results: No Data to Display [facility] Medical History (Updated 04/25/23 @ 10:19 by Puneet Jones MD) Anxiety Asthma Chronic pain syndrome Depression Diabetes mellitus type 2, controlled, without complications Disc degeneration, lumbar Epilepsy Essential hypertension Gender dysphoria Hip osteoarthritis History of tremor Hyperlipidemia LDL goal <100 Hypertension Illiterate Morbid obesity due to excess calories VELASQUEZ on CPAP Panic attacks Sacroiliitis Seizures Spondylosis 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 myelopathy Vitamin D deficiency Surgical History History of esophagogastroduodenoscopy (EGD) Hx of laparoscopic gastric banding Family History Father CVD (cardiovascular disease) Mother Hypertension Social History (Updated 04/25/23 @ 09:37 by RIVAS [place]) Household Members: Children and None Household Members Other:: 2 dogs Are you a primary care manager to a significant other at home: No Do you presently have visiting nurse or other home services: Yes Alcohol intake: former Patient Tobacco Use Status: Former Tobacco user Quit Date: 07/13/2020 Substance Use Type: Marijuana Assessment & Plan Assessment & Plan (1) Diabetes mellitus type 2, controlled, without complications: Comment: IDDM Code(s): E11.9 - Type 2 diabetes mellitus without complications Qualifiers: Diabetes mellitus intermediate teacher insulin use: with intermediate teacher use Qualified Code(s): E11.9 - Type 2 diabetes mellitus without complications; Z79.4 - assisted (current) use of insulin Plan: Personal Continuous Glucose Monitor: Patients CGM information reviewed Reviewed patient's sensor data: Hypoglycemia: ? 0% Hyperglycemia:? 64% Time in Range:? 36% Average glucose for the last 2 weeks?200 mg/dL Reviewed patient's Dexcom G7 data her average glucose is 200 mg/dL, she is 64% above target range, no episodes of hypoglycemia. She is currently taking Trulicity 4.5 mg weekly Jardiance 25 mg daily Recommended to patient she increased her Tresiba from 28 units to 34 units daily. Please send new prescription with updated dose Called patient's [facility] at [phone], to discuss increase in Tresiba, left message Message sent to Dr. Dean to update prescription Reviewed how to interpret trend arrows Reminded patient that to check finger sticks if symptoms do not match sensor reading. Discussed lag time between finger stick and sensor data.? Patient able to insert sensor independently at home without issue.? Patient Instructions: Aumentar Tresiba 28 unidades a Tresiba 32 unidades seguimiento con la enfermera de Educaci?n sobre Diabetes en 1 mes Coding Level of Care Code Est Pt Level 1 (35485) Diagnoses Diabetes mellitus type 2, controlled, without complications E11.9; Z79.4 Diabetes mellitus [facility] insulin use: with [facility] use
== END 2023-04-26 15:41 | disposition home or self-care (01) ==
PROVIDERS: Visit Provider Registered Nurse Diabetes Educator
DX: E11.9 Type 2 diabetes mellitus without complications (principal); Z79.4 Long term (current) use of insulin

== ENCOUNTER → 2023-04-26 15:01 | Outpatient (BNVA) | payer MEDICAID, SELFPAY | PROVIDERS: Visit Provider Registered Nurse Diabetes Educator | DX: E11.9 Type 2 diabetes mellitus without complications (principal); Z79.4 Long term (current) use of insulin; Z79.85 Long-term (current) use of injectable non-insulin antidiabetic drugs | CPT/HCPCS: 99211 ==

== ENCOUNTER 2023-04-26 15:48 | Outpatient (REF) | payer MEDICAID, SELFPAY ==
--- NOTE | ~2023-04-26 | XR_ITS ---
EXAMINATION: XR HAND, LEFT CLINICAL INFORMATION: Pain in left hand; thumb base tenderness COMPARISON: 03/30/2021 TECHNIQUE: PA, lateral, and oblique views of the left hand. FINDINGS: Mineralization is normal. There is no fracture or dislocation. The joint spaces appear preserved. There is mild marginal osteophyte in the distribution interphalangeal joint suggesting early osteoarthritis. There is also subchondral sclerosis and mild marginal spurring at the first carpometacarpal joint no focal soft tissue swelling is appreciated. XR/XR hand LT min 3V IMPRESSION: Mild degenerative arthritis in the distal interphalangeal joints and at the first carpometacarpal joint. No fracture, dislocation or erosive change is seen.
== END 2023-04-26 15:49 | disposition home or self-care (01) ==
LOC: HO.XRAY 15:48
PROVIDERS: Visit Provider Internal Medicine Rheumatology
DX: M79.642 Pain in left hand (principal); E11.9 Type 2 diabetes mellitus without complications; Z79.4 Long term (current) use of insulin
CPT/HCPCS: 73130

== ENCOUNTER 2023-06-03 14:37 | Outpatient (AMB) | payer MEDICAID, SELFPAY ==
[2023-06-03 14:39] VITALS: BP 132/92; PULSE 85; BMI 51.3
--- NOTE | 2023-06-03 14:39 | A.OFFVIS_ITS ---
Intake Vital Signs 06/03/23 14:39 Height 5 ft Weight 262 lb 9.129 oz BMI 51.3 BP 132/92 H Blood Pressure Location Lt brachial Position Sitting Pulse 85 Pulse Source Pulse Oximeter Intake Visit Reasons: DM/ Confirmed Intake Note: Patient presents today to follow up on Type 2 Diabetes Mellitus. Patient receives DME supplies through: Last Diabetic Eye exam: 12/2022 Last Podiatry Visit:None Random Glucose: 132 mg/dl HgA1C: 8.0% Car Cooper Required: No Accompanied by: Other Relationship Allergies No Known Allergies Allergy (Verified 06/03/23 14:46) Medication List - Last Reconciled 06/03/23 by Kingston Dean MD albuterol sulfate 90 mcg/actuation (Proventil HFA) 1 puff inhalation QID PRN alcohol swabs (Alcohol Prep Pads) 0 pad topical DIRECTED atorvastatin 20 mg PO BEDTIME blood sugar diagnostic (FreeStyle Lite Strips) USE TO TEST BLOOD SUGAR THREE TIMES DAILY cholecalciferol (vitamin D3) 50 mcg PO QAM clonazepam 1 mg PO BID CPAP (CPAP Machine/Device) As directed diclofenac sodium 1% 1 - 2 grams topical BID PRN dulaglutide (Trulicity) 3 mg (0.5 mL) subcut QWEEK dulaglutide (Trulicity) mg subcut QWEEK empagliflozin (Jardiance) 25 mg PO QAM flash glucose scanning reader ([place] Brian 2 [place]) As directed flash glucose sensor (FreeStyle Brian 2 Sensor kit) As directed change every 14 days fluticasone propion-salmeterol 250-50 mcg/dose (Advair Diskus) 1 ea inhalation gabapentin 900 mg PO BEDTIME ibuprofen 600 mg PO Q6H PRN insulin degludec (Tresiba FlexTouch U-200 insulin) 34 units (0.17 mL) subcut BEDTIME lancets (FreeStyle Lancets) Three times a data day lancets (TRUEplus Lancets) As directed lidocaine 5% 0 patches topical lisinopril-hydrochlorothiazide 20-25 mg 1 tab PO QAM melatonin 5 mg PO QPM olmesartan 5 mg PO QAM pen needle, diabetic (Pentips) 1 ea miscellaneous DAILY prazosin 5 mg PO BEDTIME propranolol 40 mg PO BID psyllium husk (aspartame) 3 gram/5.8 gram (Reguloid (aspartame)) grams PO QAM tizanidine 4 mg PO Q8H PRN HPI HPI Comments History of Present Illness Details Patient is a 57 yo male with DM type 2 diagnosed over 20 years ago, who presents for continued management of diabetes. Past medical history: DM2, HTN, HLD, seizures, lap band 2008 Micro and macrovascular complications: none known Diabetes medications: metformin 1000mg twice a day , Tresiba 28 units, Trulicity 3.0mg/week, Jardiance 10mg Unfortunately, the patient did not bring her log book, glucometer or sensor to follow-up appointment Symptoms reported: + numbness, tingling, in lower extremities worse when sleeps Hypoglycemia: Denies Hyperglycemia: + urinary frequency , nocturia (2-3x), + polydypsia Eye exams: , last exam 12/2022 no retinopathy Laboratory Tests 09/14/21 19:29 Creatinine 1.69 H Estimated GFR 31 03/30/21 03/30/21 12:15 12:15 Creatinine 1.24 Estimated GFR 45 25-OH Vitamin D To jeff 33 TSH 3.10 PFSH Medical History (Updated 04/25/23 @ 10:19 by Puneet Jones MD) Seizures Vitamin D deficiency Chronic pain syndrome Spondylosis 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 myelopathy Disc degeneration, lumbar Hip osteoarthritis Sacroiliitis Illiterate Morbid obesity due to excess calories Diabetes mellitus type 2, controlled, without complications Essential hypertension Hyperlipidemia LDL goal <100 Panic attacks VELASQUEZ on CPAP History of tremor Gender dysphoria Anxiety Depression Asthma Epilepsy Hypertension Surgical History History of esophagogastroduodenoscopy (EGD) Hx of laparoscopic gastric banding Family History Father CVD (cardiovascular disease) Mother Hypertension Social History Household Members: Children and None Household Members Other:: 2 dogs Are you a primary child caregiver private home to a significant other at home: No Do you presently have visiting nurse or other home services: Yes Alcohol intake: former Patient Tobacco Use Status: Former Tobacco user Quit Date: 07/13/2020 Substance Use Type: Marijuana Physical Exam Vital Signs: Last Vital Signs Pulse 85 06/03/23 14:39 BP 132/92 H 06/03/23 14:39 BMI result Body Mass Index 51.3 Absence of Cushingoid features. Absence of acromegalic features. Neck exam reveals nl size thyroid about 15 gms. No thyroid nodules palpable. No carotid bruits present. Lungs CTA. Heart S1 S2, Reg R/R. No M/R/ G. Skin exam reveals absence of vitiligo or acanthosis nigricans. Abdominal exam reveals Soft NT/ND with NA BS. No organomegaly present. Neck Other: . Extrem Other: Visual exam of foot performed. No ulcerations or open lesions. No onchomycosis, no callouses.Pulses 2 + distally Sensation intact to monofilament exam. Vibratory sensation sensed is intact with 128 Hz tuning fork Results AMB Hemoglobin A1c AMB Hemoglobin A1c 8.0 % Last Edit by Christi Pickens on 06/03/23 14:59 Assessment & Plan Assessment & Plan (1) Uncontrolled type 2 diabetes mellitus: Comment: Pt reports she is unable to read/write Code(s): E11.65 - Type 2 diabetes mellitus with hyperglycemia Qualifiers: Glycemic state: with hyperglycemia Qualified Code(s): E11.65 - Type 2 diabetes mellitus with hyperglycemia Plan: This is a 57-year-old female with a history of type 2 diabetes being treated with Jardiance, Trulicity and basal insulin with poor glycemic control and known microvascular complications namely CKD. Plan is to have the patient check her point cares pre and post meals. Or use sensor and bring with her to the follow-up appointment. Once we have more data can adjust the diabetic regimen. Orders: Orders AMB Hemoglobin A1c Today E11.65 - Type 2 diabetes mellitus with hyperglycemia Coding Level of Care Code Est Pt Level 4 (32196) Diagnoses Uncontrolled type 2 diabetes mellitus with hyperglycemia E11.65 Glycemic state: with hyperglycemia
[2023-06-03 14:53] LABS: Glucose, Whole Blood 132 mg/dL (60-115)
--- NOTE | 2023-06-03 15:12 | AM.OFFVISNUR ---
Intake Vital Signs 06/03/23 14:39 Height 5 ft Weight 262 lb 9.129 oz BMI 51.3 BP 132/92 H Blood Pressure Location Lt brachial Position Sitting Pulse 85 Pulse Source Pulse Oximeter Intake Visit Reasons: DM/ Confirmed Allergies No Known Allergies Allergy (Verified 06/03/23 14:46) Medication List - Last Reconciled 06/03/23 by Kingston Dean MD albuterol sulfate 90 mcg/actuation (Proventil HFA) 1 puff inhalation QID PRN alcohol swabs (Alcohol Prep Pads) 0 pad topical DIRECTED atorvastatin 20 mg PO BEDTIME blood sugar diagnostic (FreeStyle Lite Strips) USE TO TEST BLOOD SUGAR THREE TIMES DAILY cholecalciferol (vitamin D3) 50 mcg PO QAM clonazepam 1 mg PO BID CPAP (CPAP Machine/Device) As directed diclofenac sodium 1% 1 - 2 grams topical BID PRN dulaglutide (Trulicity) 3 mg (0.5 mL) subcut QWEEK dulaglutide (Trulicity) mg subcut QWEEK empagliflozin (Jardiance) 25 mg PO QAM flash glucose scanning reader ([place] Brian 2 [place]) As directed flash glucose sensor ([place]oStyle Brian 2 Sensor kit) As directed change every 14 days fluticasone propion-salmeterol 250-50 mcg/dose (Advair Diskus) 1 ea inhalation gabapentin 900 mg PO BEDTIME ibuprofen 600 mg PO Q6H PRN insulin degludec (Tresiba FlexTouch U-200 insulin) 34 units (0.17 mL) subcut BEDTIME lancets (FreeStyle Lancets) Three times a data day lancets (TRUEplus Lancets) As directed lidocaine 5% 0 patches topical lisinopril-hydrochlorothiazide 20-25 mg 1 tab PO QAM melatonin 5 mg PO QPM olmesartan 5 mg PO QAM pen needle, diabetic (Pentips) 1 ea miscellaneous DAILY prazosin 5 mg PO BEDTIME propranolol 40 mg PO BID psyllium husk (aspartame) 3 gram/5.8 gram (Reguloid (aspartame)) grams PO QAM tizanidine 4 mg PO Q8H PRN Nursing Note I provided the patient a sample of SkinTac as he c/o his Brian sensors coming off. I instructed how to use it and where he can find it to buy some. He verbalized understanding. Results AMB Hemoglobin A1c AMB Hemoglobin A1c 8.0 % Last Edit by Christi Pickens on 06/03/23 14:59 Coding Diagnoses Uncontrolled type 2 diabetes mellitus with hyperglycemia E11.65 Glycemic state: with hyperglycemia Assessment & Plan Assessment & Plan (1) Uncontrolled type 2 diabetes mellitus: Comment: Pt reports she is unable to read/write Code(s): E11.65 - Type 2 diabetes mellitus with hyperglycemia Qualifiers: Glycemic state: with hyperglycemia Qualified Code(s): E11.65 - Type 2 diabetes mellitus with hyperglycemia Orders: Orders AMB Hemoglobin A1c Today E11.65 - Type 2 diabetes mellitus with hyperglycemia
== END 2023-06-03 15:16 | disposition home or self-care (01) ==
PROVIDERS: Visit Provider Internal Medicine Endocrinology, Diabetes & Metabolism
DX: E11.65 Type 2 diabetes mellitus with hyperglycemia (principal)
CPT/HCPCS: 99214

== ENCOUNTER → 2023-06-03 14:37 | Outpatient (BNVA) | payer MEDICAID, SELFPAY | PROVIDERS: Visit Provider Internal Medicine Endocrinology, Diabetes & Metabolism | DX: E11.65 Type 2 diabetes mellitus with hyperglycemia (principal); I10 Essential (primary) hypertension; E78.5 Hyperlipidemia, unspecified; Z79.4 Long term (current) use of insulin; Z98.84 Bariatric surgery status | CPT/HCPCS: 82947; 83036; 99212 ==

== ENCOUNTER 2023-06-27 09:40 | Outpatient (REF) | payer MEDICAID, SELFPAY ==
[2023-06-27 12:12] LABS: Alanine Aminotransferase 17 U/L (0-31); Albumin Level 3.8 g/dL (3.5-5.0); Alkaline Phosphatase 80 U/L (39-117); Anion Gap 13 (12-20); Aspartate Amino Transferase 15 U/L (5-31); Bilirubin Total 0.4 mg/dL (0.0-1.0); Blood Urea Nitrogen 16 mg/dL (9-16); Calcium 9.2 mg/dL (8.4-10.2); Carbon Dioxide 22 mmol/L (22-29); Chloride 109 mmol/L (96-108); Cholesterol 136 mg/dL (<200); Estimated Glomerular Filt Rate 49; Glucose Random 190 mg/dL (60-115); HDL Cholesterol 33 mg/dL (>40); LDL Cholesterol Calculated 77 mg/dL (<100); Sodium 140 mmol/L (135-145); Total Protein 7.3 g/dL (6.5-8.0); Triglycerides 134 mg/dL (<150)
== END 2023-06-27 09:41 | disposition home or self-care (01) ==
LOC: HO.HHCL 09:40
PROVIDERS: Visit Provider Registered Nurse
DX: E11.65 Type 2 diabetes mellitus with hyperglycemia (principal); Z79.4 Long term (current) use of insulin
CPT/HCPCS: 36415; 80053; 80061

== ENCOUNTER 2023-07-24 09:14 | Outpatient (AMB) | payer MEDICAID, SELFPAY ==
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
[2023-07-24 09:17] VITALS: BP 146/78; PULSE 84; RESP 17; O2SAT 97; BMI 51.2
== END 2023-07-24 09:52 | disposition home or self-care (01) ==
PROVIDERS: PCP Registered Nurse; Visit Provider Psychiatry & Neurology Neurology
DX: R56.9 Unspecified convulsions (principal); G47.33 Obstructive sleep apnea (adult) (pediatric)
CPT/HCPCS: 99214

== ENCOUNTER → 2023-07-24 09:14 | Outpatient (BNVA) | payer MEDICAID, SELFPAY | PROVIDERS: PCP Registered Nurse; Visit Provider Psychiatry & Neurology Neurology | DX: R56.9 Unspecified convulsions (principal); G47.33 Obstructive sleep apnea (adult) (pediatric) | CPT/HCPCS: 99212 ==

== ENCOUNTER 2023-07-29 11:35 | Outpatient (REF) | payer MEDICAID, SELFPAY ==
--- NOTE | ~2023-07-29 | MM_ITS ---
EXAMINATION: MM SCREENING DIGITAL BREAST TOMOSYNTHESIS, BILATERAL CLINICAL INFORMATION: Screening. Asymptomatic. COMPARISON: Mammography: This study is compared with prior exams dating back to 2016. TECHNIQUE: Digital breast tomosynthesis is performed in both the craniocaudal and mediolateral oblique views along with computer-aided detection (CAD). Synthesized 2D images are generated from the tomosynthesis. FINDINGS: The breasts are almost entirely fatty (ACR BI-RADS breast composition Category a). There are no significant masses, abnormal calcifications, or other abnormalities. MM/MM tomosynthesis screening BI IMPRESSION: No mammographic evidence of malignancy. ASSESSMENT: BI-RADS BI-RADS 1 - Negative RECOMMENDATION: Routine annual mammography screening. 1 year F/U This examination should not preclude the clinical evaluation of a suspicious palpable abnormality. This patient's information was entered into a reminder system with a target due date for their next mammogram.
== END 2023-07-29 11:36 | disposition home or self-care (01) ==
LOC: HO.MAMMO 11:35
PROVIDERS: PCP Internal Medicine; Visit Provider Internal Medicine
DX: Z12.31 Encounter for screening mammogram for malignant neoplasm of breast (principal)
CPT/HCPCS: 77063; 77067

== ENCOUNTER → 2023-07-29 12:15 | Outpatient (BNV) | payer MEDICAID, SELFPAY | PROVIDERS: PCP Internal Medicine; Visit Provider Radiology Diagnostic Radiology | DX: Z12.31 Encounter for screening mammogram for malignant neoplasm of breast (principal) | CPT/HCPCS: 77063; 77067 ==

== ENCOUNTER 2023-08-09 22:43 | Emergency (ER) | payer MEDICAID, SELFPAY ==
--- NOTE | 2023-08-09 | ECG_ITS ---
Test Reason : dyspnea Blood Pressure : / mmHG Vent. Rate : 066 BPM Atrial Rate : 066 BPM P-R Int : 174 ms QRS Dur : 082 ms QT Int : 416 ms P-R-T Axes : 034 -04 019 degrees QTc Int : 436 ms Normal sinus rhythm Normal ECG When compared with ECG of 12-NOV-2022 16:11, No significant change was found Referred By: Generic ED Physician Electronically Signed By:CHAVO INFANTE
[2023-08-09 23:03] VITALS: BP 144/82; PULSE 68; RESP 20; TEMP 37.1; O2SAT 96; BMI 45.7
[2023-08-09 23:32] LABS: Basophils Percent Auto 0.5 % (0-2); Eosinophils Absolute Auto 0.2 X10*3/uL (0.0-0.4); Eosinophils Percent Auto 2.1 % (0-4); Hematocrit 47.1 % (37.0-47.0); Hemoglobin 13.9 g/dl (12.0-16.0); Imm Gran Abs Auto 0.01 X10*3/uL (0.00-0.03); Imm Gran Pct Auto 0.1 % (0.0-0.4); Lymphocytes Absolute Auto 2.9 X10*3/uL (1.2-4.9); Lymphocytes Percent Auto 32.8 % (20-40); MANUAL DIFF FLAG SCAN; Mean Corpuscular HGB Conc 29.5 g/dl (31.0-35.0); Mean Corpuscular Hemoglobin 24.3 pg (27.0-33.0); Mean Corpuscular Volume 82.2 fL (80.0-98.0); Mean Platelet Volume 10.9 fL (9.4-12.3); Monocytes Absolute Auto 0.6 X10*3/uL (0.1-1.2); Monocytes Percent Auto 7.1 % (2-11); Neutrophils Percent Auto 57.4 % (45-73); PLT CLUMP 1; Red Blood Count 5.73 X10*6/uL (4.20-5.50); Red Cell Distribution Width 15.8 % (11.0-16.0); SCAN SMEAR FLAG 1
[2023-08-09 23:44] LABS: Alanine Aminotransferase 19 U/L (0-31); Albumin Level 3.7 g/dL (3.5-5.0); Alkaline Phosphatase 88 U/L (39-117); Anion Gap 14 (12-20); Aspartate Amino Transferase 19 U/L (5-31); Bilirubin Total 0.3 mg/dL (0.0-1.0); Blood Urea Nitrogen 15 mg/dL (9-16); Calcium 9.2 mg/dL (8.4-10.2); Carbon Dioxide 19 mmol/L (22-29); Chloride 115 mmol/L (96-108); Creatinine Clr Calc Pharmacy 69.8; Estimated Glomerular Filt Rate 55; Glucose Random 120 mg/dL (60-115); Potassium 3.8 mmol/L (3.3-5.1); Sodium 144 mmol/L (135-145); Total Protein 7.6 g/dL (6.5-8.0)
[2023-08-09 23:51] LABS: White Blood Count 8.7 X10*3/uL (4.8-10.8)
[2023-08-09 23:52] LABS: SLIDE REVIEW VERIFIED
[2023-08-10 00:07] LABS: Influenza A PCR NEGATIVE (Negative); Influenza B PCR NEGATIVE (Negative); Resp Syncy Virus RNA Qual PCR NEGATIVE (Negative); SARS COV2 PCR INHOUSE NEGATIVE (Negative)
[2023-08-10 01:02] VITALS: BP 154/85; PULSE 68; RESP 16; TEMP 36.6; O2SAT 97
--- NOTE | 2023-08-10 01:57 | ED_ITS ---
HPI - General Adult General Chief complaint: Dyspnea Stated complaint: sob Time Seen by Provider: 08/10/23 01:07 Source: patient Mode of arrival: ambulatory Limitations: no limitations History of Present Illness HPI narrative: Patient comes to the emergency room complaining of generalized malaise and fatigue for 2 days, coughing. Patient states that she had an argument with his girlfriend, patient thought that his blood sugar was high and came to the emergency room. Denies chest pain or shortness of breath. Patient denies nausea vomiting or diarrhea, no UTI symptoms, mild coughing. Related Data Home Medications Medication Instructions Recorded Confirmed albuterol sulfate 90 mcg/actuation 1 puff inhalation QID PRN Wheezing 07/14/20 07/24/23 aerosol inhaler (Proventil HFA) tizanidine 4 mg tablet 4 mg PO Q8H PRN 08/01/22 07/24/23 CPAP (CPAP Machine/Device) 08/08/22 07/24/23 alcohol swabs (Alcohol Prep Pads) 0 pad topical DIRECTED 08/08/22 07/24/23 fluticasone 250 mcg-salmeterol 50 1 ea inhalation 08/08/22 07/24/23 mcg/dose blistr powdr for inhalation (Advair Diskus) gabapentin 300 mg capsule 900 mg PO BEDTIME 08/08/22 07/24/23 prazosin 5 mg capsule 5 mg PO BEDTIME 08/08/22 07/24/23 propranolol 40 mg tablet 40 mg PO BID 08/08/22 07/24/23 lisinopril 20 1 tab PO QAM 10/01/22 07/24/23 mg-hydrochlorothiazide 25 mg tablet cholecalciferol (vitamin D3) 50 50 mcg PO QAM 12/21/22 07/24/23 mcg (2,000 unit) tablet melatonin 5 mg tablet 5 mg PO QPM 12/21/22 07/24/23 empagliflozin 25 mg tablet 25 mg PO QAM 01/24/23 07/24/23 (Jardiance) dulaglutide 4.5 mg/0.5 mL mg subcut QWEEK 04/25/23 07/24/23 subcutaneous pen injector (Trulicity) lancets 33 gauge (TRUEplus Lancets) #100 ea 04/25/23 07/24/23 lidocaine 5 % topical patch 0 patch topical 04/25/23 07/24/23 olmesartan 5 mg tablet 5 mg PO QAM 04/25/23 07/24/23 psyllium husk (aspartame) 3 g PO QAM 04/25/23 07/24/23 gram/5.8 gram oral powder (Reguloid (aspartame)) Previous Rx's Medication Instructions Recorded ibuprofen 600 mg tablet 600 mg PO Q6H PRN pain #20 tabs 03/14/21 lancets 28 gauge (FreeStyle #100 ea 12/22/21 Lancets) pen needle, diabetic 32 gauge x 1 ea miscellaneous DAILY #100 ea 05/14/22 (Pentips) flash glucose scanning reader #1 ea 12/21/22 (FreeStyle Brian 2 [place]) blood sugar diagnostic (FreeStyle #100 strips 02/26/23 Lite Strips) atorvastatin 20 mg tablet 20 mg PO BEDTIME #30 tabs 02/28/23 dulaglutide 3 mg/0.5 mL 3 mg (0.5 mL) subcut QWEEK #2 mL 03/27/23 subcutaneous pen injector ([employer] Drinks) diclofenac sodium 1 % topical gel 1 - 2 g topical BID PRN pain 04/25/23 (scale score 1-3) #100 grams insulin degludec 200 unit/mL (3 34 unit (0.17 mL) subcut BEDTIME 04/26/23 mL) subcutaneous pen (Tresiba #9 mL FlexTouch U-200 insulin) flash glucose sensor (FreeStyle #2 ea 06/03/23 Brian 2 Sensor kit) Allergies Allergy/AdvReac Type Severity Reaction Status Date / Time No Known Allergies Allergy Verified 08/09/23 23:03 Review of Systems 2 Review of Systems: Constitutional : No Weight loss, No Fever, No Chills, No Night Sweats, complaining of fatigue and generalized malaise ENT/Mouth : No Hearing loss, No Ear Pain, No Nasal Congestion, No Sinus Pain, No Hoarseness, No sore throat, No Rhinorrhea, No Swallowing Difficulty Eyes: No Eye Pain, No Swelling, No Redness, No Foreign Body, No Discharge, No Vision Changes Cardiovascular : No Chest Pain, No SOB, No Dyspnea on Exertion, No Orthopnea, No Edema, No Palpitations Respiratory : No Cough, No Sputum, No Wheezing, No Smoke Exposure, No Dyspnea Gastrointestinal : No Nausea, No Vomiting, No Diarrhea, No Constipation, No abdominal Pain, No Hematochezia, No Melena Genitourinary : no irregular bleeding, No Dysuria, No Urinary Frequency, No Hematuria, No Urinary Incontinence, No Urgency, No Flank Pain, No Urinary Flow Changes, No Hesitancy Musculoskeletal : No joint pain, No Myalgias, No Joint Swelling Skin : No Skin Lesions, No rash Neuro : No Weakness, No Numbness, No Paresthesias, No Loss of Consciousness, No Dizziness, No Headache Psych : No Anxiety/Panic, No Depression, No SI/HI/AH/VH, having problems at home with his girlfriend making him feel sick, Heme/Lymph: No Bruising, No Bleeding,No Lymphadenopathy Endocrine : No Polyuria, No Polydipsia, No Temperature Intolerance PMFSH Past Medical History 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 myelopathy Disc degeneration, lumbar Hip osteoarthritis Sacroiliitis Illiterate Morbid obesity due to excess calories Diabetes mellitus type 2, controlled, without complications Essential hypertension Hyperlipidemia LDL goal <100 Panic attacks VELASQUEZ on CPAP History of tremor Gender dysphoria Anxiety Depression Asthma Epilepsy Hypertension Surgical History History of esophagogastroduodenoscopy (EGD) Hx of laparoscopic gastric banding Family History Family History Father CVD (cardiovascular disease) Mother Hypertension Social History Social History Household Members: Children and None Household Members Other:: 2 dogs Are you a primary care asst to a significant other at home: No Do you presently have visiting nurse or other home services: Yes Alcohol intake: former Patient Tobacco Use Status: Former Tobacco user Quit Date: 07/13/2020 Smoked in Last 30 Days: No Use of substances other than those prescribed or required for medical reasons: No Substance Use Type: Marijuana Advance Directives: No Advance Directives Information Provided: Yes Physical Exam ED Vital Signs: Vital Signs - 24 hr 08/09/23 23:03 08/10/23 01:02 Temperature 98.7 F 97.8 F Pulse Rate 68 68 Respiratory Rate 20 16 Blood Pressure 144/82 H 154/85 H Pulse Oximetry 96 97 Oxygen Delivery Method Room Air Room Air BMI result Body Mass Index 45.7 Const Other: Appearance: Alert. Oriented X3. No acute distress. Eyes: Pupils equal, round and reactive to light. ENT: Pharynx normal. Neck: Normal inspection. Neck supple. No lymph nodes noted. No crepitus CVS: Normal heart rate and rhythm. Pulses normal. Normal S1 and S2 Respiratory: No respiratory distress. Breath sounds normal. No Wheezing. No rales Abdomen: Soft and nontender. No rigidity. No distention. Skin: Skin warm and dry. Normal skin color. Normal skin turgor. Extremities: No lower extremity edema. No Lacerations. No Rash Neuro: Oriented X 3. No motor deficit. No sensory deficit. Moving all extremities. No slurred speech. CN 2 through 12 grossly intact Psych: calm, cooperative, normal affect Medical Decision Making Medical Decision Making [facility] Narrative: -my interpretation of labs: No significant abnormalities in hematology are chemistry -my interpretation of EKG: Normal sinus rhythm, heart rate 66, no ST segment depression elevation, no T-wave inversion, QTC 436 -at this time, patient is asymptomatic. Patient states that she feels physically back to baseline other than disappointed with his partner Differential Diagnosis Differential Diagnoses: The differential diagnosis associated with the presentation includes (Viral syndrome, anxiety, depression) Lab Data [facility] Lab Attestation statement: I reviewed the patient's lab results. 08/09/23 23:25 08/09/23 23:25 Labs: Lab Results 08/09/23 Range/Units 23:25 WBC 8.7 (4.8-10.8) X10*3/uL RBC 5.73 H D (4.20-5.50) X10*6/uL Hgb 13.9 (12.0-16.0) g/dl Hct 47.1 H D (37.0-47.0) % MCV 82.2 (80.0-98.0) fL MCH 24.3 L (27.0-33.0) pg MCHC 29.5 L (31.0-35.0) g/dl RDW 15.8 (11.0-16.0) % Plt Count TNP MPV 10.9 (9.4-12.3) fL Immature Gran % (Auto) 0.1 (0.0-0.4) % Neut % (Auto) 57.4 (45-73) % Lymph % (Auto) 32.8 (20-40) % [place] % (Auto) 7.1 (2-11) % Eos % (Auto) 2.1 (0-4) % Baso % (Auto) 0.5 (0-2) % Lymph # (Auto) 2.9 (1.2-4.9) X10*3/uL [place] # (Auto) 0.6 (0.1-1.2) X10*3/uL Eos # (Auto) 0.2 (0.0-0.4) X10*3/uL Baso # (Auto) 0.0 (0.0-0.2) X10*3/uL Abs Immat Gran (auto) 0.01 (0.00-0.03) X10*3/uL Absolute Neuts (auto) 5.0 (2.0-8.3) x10*3/uL Absolute Nucleated RBC 0.000 (0.0-0.012) X10*3/uL Nucleated RBC % (auto) 0.0 (0.0-0.2) /100WBC Smear Tech's Comments VERIFIED Sodium 144 (135-145) mmol/L Potassium 3.8 (3.3-5.1) mmol/L Chloride 115 H (96-108) mmol/L Carbon Dioxide 19 L (22-29) mmol/L Anion Gap 14 (12-20) BUN 15 (9-16) mg/dL Creatinine 1.02 (0.5-1.4) mg/dL Estim Creat Clear Calc 69.8 Estimated GFR 55 Random Glucose 120 H (60-115) mg/dL Calcium 9.2 (8.4-10.2) mg/dL Total Bilirubin 0.3 (0.0-1.0) mg/dL AST 19 (5-31) U/L ALT 19 (0-31) U/L Alkaline Phosphatase 88 (39-117) U/L Total Protein 7.6 (6.5-8.0) g/dL Albumin 3.7 (3.5-5.0) g/dL Influenza Type A (PCR) NEGATIVE (Negative) Influenza Type B (PCR) NEGATIVE (Negative) RSV RNA Qual (PCR) NEGATIVE (Negative) SARS-CoV-2 RNA (RT-PCR) NEGATIVE (Negative) Independent Interpretation I performed an independent interpretation of an: EKG Discharge Plan Discharge Clinical Impression: Acute viral syndrome Patient Disposition: Home, Self-Care Instructions: Viral Syndrome (ED) Additional Instructions: Please follow-up with your primary care physician tomorrow. If you have any worsening or new symptoms, please return to the emergency room or call 911 Prescriptions: No Action pen needle, diabetic [Pentips] 32 gauge x needle 1 ea miscellaneous DAILY Qty: 100 1RF (DME) FreeStyle Lite Strips Strip See Rx Instructions .ROUTE .COMPLEX Qty: 100 0RF Dose Instruction: USE TO TEST BLOOD SUGAR THREE TIMES DAILY Rx Instructions: USE TO TEST BLOOD SUGAR THREE TIMES DAILY atorvastatin 20 mg tablet 20 mg PO BEDTIME Qty: 30 11RF Trulicity 3 mg/0.5 mL pen injector 3 mg subcut QWEEK Qty: 2 5RF Tresiba FlexTouch U-200 200 unit/mL (3 mL) insulin pen 34 unit SUBCUT BEDTIME Qty: 9 5RF albuterol sulfate [Proventil HFA] 90 mcg/actuation Hfa Aerosol Inhaler 1 puff INHALATION QID PRN (Reason: Wheezing) ibuprofen 600 mg tablet 600 mg PO Q6H PRN (Reason: pain) Qty: 20 0RF (DME) lancets [FreeStyle Lancets] 28 gauge misc See Rx Instructions .ROUTE .MEDSUPPLY Qty: 100 11RF Rx Instructions: Three times a data day lisinopril-hydrochlorothiazide 20-25 mg tablet 1 tab PO QAM cholecalciferol (vitamin D3) 50 mcg (2,000 unit) tablet 50 mcg PO QAM melatonin 5 mg tablet 5 mg PO QPM (DME) FreeStyle Brian 2 [place] Misc See Rx Instructions .Route Qty: 1 0RF Rx Instructions: As directed (DME) lancets [TRUEplus Lancets] 33 gauge misc See Rx Instructions .ROUTE QID Qty: 100 Rx Instructions: As directed olmesartan 5 mg tablet 5 mg PO QAM Reguloid (aspartame) 3 gram/5.8 gram powder PO QAM lidocaine 5 % adhesive patch,medicated 0 patch topical Trulicity 4.5 mg/0.5 mL pen injector subcut QWEEK diclofenac sodium 1 % gel 1 - 2 g topical BID PRN (Reason: pain (scale score 1-3)) Qty: 100 3RF Rx Instructions: to affected joints tizanidine 4 mg tablet 4 mg PO Q8H PRN (DME) CPAP Machine/Device Device See Rx Instructions .Route Rx Instructions: As directed prazosin 5 mg capsule 5 mg PO BEDTIME fluticasone propion-salmeterol [Advair Diskus] 250-50 mcg/dose blister with device 1 ea inhalation alcohol swabs [Alcohol Prep Pads] Pads, Medicated 0 pad topical DIRECTED gabapentin 300 mg capsule 900 mg PO BEDTIME propranolol 40 mg tablet 40 mg PO BID Jardiance 25 mg tablet 25 mg PO QAM (DME) FreeStyle Brian 2 Sensor Kit See Rx Instructions .Route Qty: 2 6RF Rx Instructions: As directed change every 14 days
== END 2023-08-10 02:16 | disposition home or self-care (01) ==
PROVIDERS: Emergency Provider Emergency Medicine
DX: B34.9 Viral infection, unspecified (principal); R06.00 Dyspnea, unspecified; R05.9 Cough, unspecified; R53.83 Other fatigue; I10 Essential (primary) hypertension; G40.909 Epilepsy, unspecified, not intractable, without status epilepticus; E11.9 Type 2 diabetes mellitus without complications; E78.5 Hyperlipidemia, unspecified; Z20.822 Contact with and (suspected) exposure to COVID-19; Z20.828 Contact with and (suspected) exposure to other viral communicable diseases
CPT/HCPCS: 0241U; 80053; 85025; 93005; 99284; 99285

== ENCOUNTER → 2023-08-09 23:19 | Outpatient (BNV) | payer MEDICAID, SELFPAY | PROVIDERS: Emergency Provider Emergency Medicine; Visit Provider Internal Medicine | DX: R06.02 Shortness of breath (principal) | CPT/HCPCS: 93010 ==

== ENCOUNTER 2023-08-16 13:21 | Emergency (ER) | payer MEDICAID, SELFPAY ==
--- NOTE | ~2023-08-16 | XR_ITS ---
EXAMINATION: XR CHEST CLINICAL INFORMATION: Chest pain COMPARISON: Chest x-ray September 14, 2021 TECHNIQUE: Frontal portable view of the chest was obtained. 2:18 PM FINDINGS: No significant abnormality is noted involving the heart, lungs, mediastinum, bony thorax or soft tissues. XR/XR chest 1V IMPRESSION: Unremarkable examination.
[2023-08-16 13:34] VITALS: BP 126/69; BP 90/60; PULSE 77; PULSE 80; RESP 14; TEMP 36.7; O2SAT 97; O2SAT 98; BMI 47.8
--- NOTE | 2023-08-16 13:43 | ECG_ITS ---
Test Reason : CHEST Blood Pressure : / mmHG Vent. Rate : 077 BPM Atrial Rate : 077 BPM P-R Int : 154 ms QRS Dur : 084 ms QT Int : 398 ms P-R-T Axes : 037 000 026 degrees QTc Int : 450 ms Normal sinus rhythm Normal ECG When compared with ECG of 09-AUG-2023 23:19, No significant change was found Referred By: Generic ED Physician Electronically Signed By:Tommy Gautam
[2023-08-16 13:48] VITALS: PULSE 78; RESP 13; O2SAT 98
--- NOTE | 2023-08-16 13:58 | PC.NURSE ---
pt a&o, calm, and cooperative. pt is covid positive, c/o chest pain with coughing, weakness, congestion, rhinorrhea, and ultimately appears unwell. pt sts he has been nauseous with vomiting and diarrhea, and had 2 seizures today. pt reports he has a seizure hx but does not take medications for it daily. pt changed over to hospital attire, seizure precautions put in place, EKG obtained, placed on bedside monitor. 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 labs drawn and sent. pt currently resting quietly on stretcher in no apparent distress. rr even/unlabored. vss. plan of care ongoing.
[2023-08-16 14:00] LABS: MANUAL DIFF FLAG NO
[2023-08-16 14:04] LABS: Basophils Percent Auto 0.3 % (0-2); Eosinophils Absolute Auto 0.1 X10*3/uL (0.0-0.4); Eosinophils Percent Auto 1.7 % (0-4); Hematocrit 44.2 % (37.0-47.0); Hemoglobin 13.8 g/dl (12.0-16.0); Imm Gran Abs Auto 0.02 X10*3/uL (0.00-0.03); Imm Gran Pct Auto 0.3 % (0.0-0.4); Lymphocytes Absolute Auto 1.8 X10*3/uL (1.2-4.9); Lymphocytes Percent Auto 28.2 % (20-40); Mean Corpuscular HGB Conc 31.2 g/dl (31.0-35.0); Mean Corpuscular Hemoglobin 24.9 pg (27.0-33.0); Mean Corpuscular Volume 79.8 fL (80.0-98.0); Mean Platelet Volume 10.1 fL (9.4-12.3); Monocytes Absolute Auto 0.9 X10*3/uL (0.1-1.2); Monocytes Percent Auto 13.8 % (2-11); Neutrophils Absolute Auto 3.6 x10*3/uL (2.0-8.3); Neutrophils Percent Auto 55.7 % (45-73); Platelet Count 252 X10*3/uL (160-400); Red Blood Count 5.54 X10*6/uL (4.20-5.50); Red Cell Distribution Width 15.7 % (11.0-16.0); White Blood Count 6.4 X10*3/uL (4.8-10.8)
[2023-08-16 14:18] LABS: Anion Gap 12 (12-20); Blood Urea Nitrogen 13 mg/dL (9-16); Calcium 8.9 mg/dL (8.4-10.2); Carbon Dioxide 23 mmol/L (22-29); Chloride 107 mmol/L (96-108); Creatinine Clr Calc Pharmacy 54.6; Estimated Glomerular Filt Rate 40; Glucose Random 149 mg/dL (60-115); Potassium 3.8 mmol/L (3.3-5.1); Sodium 138 mmol/L (135-145)
[2023-08-16 14:25] LABS: Troponin-I High Sensitivity < 2.7 ng/L (<3.5-17.0)
[2023-08-16 14:38] LABS: Influenza A PCR NEGATIVE (Negative); Influenza B PCR NEGATIVE (Negative); Resp Syncy Virus RNA Qual PCR NEGATIVE (Negative); SARS COV2 PCR INHOUSE POSITIVE (Negative)
--- NOTE | 2023-08-16 14:44 | ED.SEIZURE ---
HPI - Seizure General Chief Complaint: Upper Respiratory Symptoms Stated Complaint: COVID+ Time Seen by Provider: 08/16/23 14:28 Source: patient Mode of arrival: EMS Limitations: no limitations History of Present Illness HPI Narrative: 58 yo patient with PMH of DM, obesity, HTN, HLD, seizures but no meds x 2 years as he doesn't like the side effects states dilantin and depakote have made his hand shakes. He notes he has seizures twice a week. He started to have fevers, cough runny nose and tested positive for COVID on Saturday same day as symptoms. Last year he had a bad bout with COVID and is scared. He is not vaccinated. He will take paxlovid. He agrees to try keppra for seizures. He thinks the fever of 100.4 triggered another GTC seizure lasting a few minutes - no trauma reported and he is back to baseline. MD complaint: seizure Onset (ago): hour(s) Description of Episode: loss of consciousness and tonic-clonic movement Duration of episode: 2 -: minutes(s) Witnessed: Yes - by Bystander Trauma: No Seizure History: Yes Place: Home Possible Precipitating Event: fever Associated symptoms: denies other symptoms Treatments prior to arrival: none Related Data Home Medications Medication Instructions Recorded Confirmed albuterol sulfate 90 mcg/actuation 1 puff inhalation QID PRN Wheezing 07/14/20 07/24/23 aerosol inhaler (Proventil HFA) tizanidine 4 mg tablet 4 mg PO Q8H PRN 08/01/22 07/24/23 CPAP (CPAP Machine/Device) 08/08/22 07/24/23 alcohol swabs (Alcohol Prep Pads) 0 pad topical DIRECTED 08/08/22 07/24/23 fluticasone 250 mcg-salmeterol 50 1 ea inhalation 08/08/22 07/24/23 mcg/dose blistr powdr for inhalation (Advair Diskus) gabapentin 300 mg capsule 900 mg PO BEDTIME 08/08/22 07/24/23 prazosin 5 mg capsule 5 mg PO BEDTIME 08/08/22 07/24/23 propranolol 40 mg tablet 40 mg PO BID 08/08/22 07/24/23 lisinopril 20 1 tab PO QAM 10/01/22 07/24/23 mg-hydrochlorothiazide 25 mg tablet cholecalciferol (vitamin D3) 50 50 mcg PO QAM 12/21/22 07/24/23 mcg (2,000 unit) tablet melatonin 5 mg tablet 5 mg PO QPM 12/21/22 07/24/23 empagliflozin 25 mg tablet 25 mg PO QAM 01/24/23 07/24/23 (Jardiance) dulaglutide 4.5 mg/0.5 mL mg subcut QWEEK 04/25/23 07/24/23 subcutaneous pen injector (Trulicity) lancets 33 gauge (TRUEplus Lancets) #100 ea 04/25/23 07/24/23 lidocaine 5 % topical patch 0 patch topical 04/25/23 07/24/23 olmesartan 5 mg tablet 5 mg PO QAM 04/25/23 07/24/23 psyllium husk (aspartame) 3 g PO QAM 04/25/23 07/24/23 gram/5.8 gram oral powder (Reguloid (aspartame)) Previous Rx's Medication Instructions Recorded ibuprofen 600 mg tablet 600 mg PO Q6H PRN pain #20 tabs 03/14/21 lancets 28 gauge (FreeStyle #100 ea 12/22/21 Lancets) pen needle, diabetic 32 gauge x 1 ea miscellaneous DAILY #100 ea 05/14/22 (Pentips) flash glucose scanning reader #1 ea 12/21/22 (FreeStyle Brian 2 [place]) blood sugar diagnostic (FreeStyle #100 strips 02/26/23 Lite Strips) atorvastatin 20 mg tablet 20 mg PO BEDTIME #30 tabs 02/28/23 dulaglutide 3 mg/0.5 mL 3 mg (0.5 mL) subcut QWEEK #2 mL 03/27/23 subcutaneous pen injector (Trulicity) diclofenac sodium 1 % topical gel 1 - 2 g topical BID PRN pain 04/25/23 (scale score 1-3) #100 grams insulin degludec 200 unit/mL (3 34 unit (0.17 mL) subcut BEDTIME 04/26/23 mL) subcutaneous pen (Tresiba #9 mL FlexTouch U-200 insulin) flash glucose sensor (FreeStyle #2 ea 06/03/23 Brian 2 Sensor kit) levetiracetam 500 mg tablet 500 mg PO BID #60 tabs 08/16/23 (Keppra) nirmatrelvir 150 mg-ritonavir 100 See Rx Instructions PO .COMPLEX 08/16/23 mg tablets in a dose pack #20 ea (Paxlovid) Allergies Allergy/AdvReac Type Severity Reaction Status Date / Time No Known Allergies Allergy Verified 08/09/23 23:03 Review of Systems Review of Systems: Constitutional : pos Fever, pos Chills, pos Fatigue ENT/Mouth : No sore throat, No Rhinorrhea Eyes: No Eye Pain, No Swelling, No Redness Cardiovascular : No Chest Pain, No SOB, No Dyspnea on Exertion Respiratory : pos Cough, No Sputum Gastrointestinal : No Nausea, No Vomiting, No Diarrhea, No abdominal Pain Genitourinary : No Dysuria, No Urinary Frequency, No Hematuria, Musculoskeletal : No joint pain, No Myalgias, No Joint Swelling Skin : No Skin Lesions, No rash Neuro : No Weakness, No Numbness, No Dizziness, no Headache, pos seizures Psych : No Anxiety/Panic, No Depression Heme/Lymph: No Bruising, No Bleeding,No Lymphadenopathy Endocrine : No Polyuria, No Polydipsia All other systems reviewed and are negative [facility] Past Medical History Source: old records reviewed 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 myelopathy Disc degeneration, lumbar Hip osteoarthritis Sacroiliitis Illiterate Morbid obesity due to excess calories Diabetes mellitus type 2, controlled, without complications Essential hypertension Hyperlipidemia LDL goal <100 Panic attacks VELASQUEZ on CPAP History of tremor Gender dysphoria Anxiety Depression Asthma Epilepsy Hypertension Surgical History History of esophagogastroduodenoscopy (EGD) Hx of laparoscopic gastric banding Family History Family History Father CVD (cardiovascular disease) Mother Hypertension Social History Social History Household Members: Children and None Household Members Other:: 2 dogs Are you a primary home care associate to a significant other at home: No Do you presently have visiting nurse or other home services: Yes Alcohol intake: former Patient Tobacco Use Status: Former Tobacco user Quit Date: 07/13/2020 Smoked in Last 30 Days: No Use of substances other than those prescribed or required for medical reasons: No Substance Use Type: Marijuana Advance Directives: No Advance Directives Information Provided: No Physical Exam Vital Signs: Vital Signs: Last Vital Signs Temp 98.1 F 08/16/23 13:34 Pulse 78 08/16/23 13:48 Resp 13 08/16/23 13:48 BP 126/69 08/16/23 13:34 Pulse Ox 98 08/16/23 13:48 O2 Del Method Room Air 08/16/23 13:48 BMI result Body Mass Index 47.8 Appearance: Alert. Oriented X3. No acute distress. Eyes: Pupils equal, round and reactive to light. ENT: Pharynx normal. Neck: Normal inspection. Neck supple. CVS: Normal heart rate and rhythm. Pulses normal. Respiratory: No respiratory distress. Breath sounds normal. Abdomen: Soft and nontender. Skin: Skin warm and dry. Normal skin color. Normal skin turgor. Extremities: No lower extremity edema. No calf ttp Neuro: Oriented X 3. No motor deficit. No sensory deficit. Medical Decision Making Medical Decision Making [facility] Narrative: 58 yo patient with PMH of DM, obesity, HTN, HLD, seizures but no meds x 2 years here with c/o seizure at home in setting of COVID + and fever of 100.4 but also he has 2 seizures a week. He agrees to try keppra did discuss depression side effects. Discussed paxlovid has no CP/SOB no hypoxia will obtian labs and CXR - run meds vs paxlovid and Rx. 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 08/16/23 13:54 08/16/23 13:54 Labs: Lab Results 08/16/23 Range/Units 13:54 WBC 6.4 (4.8-10.8) X10*3/uL RBC 5.54 H (4.20-5.50) X10*6/uL Hgb 13.8 (12.0-16.0) g/dl Hct 44.2 (37.0-47.0) % MCV 79.8 L (80.0-98.0) fL MCH 24.9 L (27.0-33.0) pg MCHC 31.2 (31.0-35.0) g/dl RDW 15.7 (11.0-16.0) % Plt Count 252 (160-400) X10*3/uL MPV 10.1 (9.4-12.3) fL Immature Gran % (Auto) 0.3 (0.0-0.4) % Neut % (Auto) 55.7 (45-73) % Lymph % (Auto) 28.2 (20-40) % Irwin % (Auto) 13.8 H (2-11) % Eos % (Auto) 1.7 (0-4) % Baso % (Auto) 0.3 (0-2) % Lymph # (Auto) 1.8 (1.2-4.9) X10*3/uL Irwin # (Auto) 0.9 (0.1-1.2) X10*3/uL Eos # (Auto) 0.1 (0.0-0.4) X10*3/uL Baso # (Auto) 0.0 (0.0-0.2) X10*3/uL Abs Immat Gran (auto) 0.02 (0.00-0.03) X10*3/uL Absolute Neuts (auto) 3.6 (2.0-8.3) x10*3/uL Absolute Nucleated RBC 0.000 (0.0-0.012) X10*3/uL Nucleated RBC % (auto) 0.0 (0.0-0.2) /100WBC Sodium 138 (135-145) mmol/L Potassium 3.8 (3.3-5.1) mmol/L Chloride 107 (96-108) mmol/L Carbon Dioxide 23 (22-29) mmol/L Anion Gap 12 (12-20) BUN 13 (9-16) mg/dL Creatinine 1.34 (0.5-1.4) mg/dL Estim Creat Clear Calc 54.6 Estimated GFR 40 Random Glucose 149 H (60-115) mg/dL Calcium 8.9 (8.4-10.2) mg/dL Troponin I High Sens < 2.7 (<3.5-17.0) ng/L Influenza Type A (PCR) NEGATIVE (Negative) Influenza Type B (PCR) NEGATIVE (Negative) RSV RNA Qual (PCR) NEGATIVE (Negative) SARS-CoV-2 RNA (RT-PCR) POSITIVE A (Negative) Independent Interpretation I performed an independent interpretation of an: EKG and Plain X-Ray (normal ) Interpretation: Rate: 77 Rhythm: NSR [place]: left Normal P waves. Normal EUGENE. Normal QRS complex. ST T wave : normal no KELLEE qTC: normal prior studies: no acute ischemia The study has been interpreted contemporaneously by me. . Radiology Impression Discussion of test interpretation with radiology: I have reviewed the radiologist's reading. Independent Historian Clinical information obtained from an independent historian. History obtained from or confirmed by: Spouse External Record Review External record reviewed: Inpatient record Prescription Management I considered prescription management with: Antiviral and Other Discharge Plan Discharge Clinical Impression: COVID-19 Epilepsy Qualifiers: Epilepsy type: unspecified Intractability: not intractable Status epilepticus: without status epilepticus Qualified Code(s): G40.909 - Epilepsy, unspecified, not intractable, without status epilepticus Patient Disposition: Home, Self-Care Instructions: Epilepsy (ED), COVID-19 (Coronavirus Disease 2019) (ED) Additional Instructions: return for chest pain, trouble breathing, worsening COVID symptoms, please treat fever with tylenol. montor depression while on paxlovid HOLD ATORVASTATIN AND DO NOT START UNTIL 3 DAYS AFTER TREATMENT HOLD CLONAZEPAM AND DO NOT START UNTIL 3 DAYS AFTER TREATMENT Regrese si tiene dolor en el pecho, dificultad para respirar o empeoramiento de los s?ntomas de COVID; trate la fiebre con tylenol. depresi?n monitora mientras en paxlovid MANTENER ATORVASTATIN Y NO COMENZAR HASTA 3 D? DESPU?S DEL TRATAMIENTO MANTENER CLONAZEPAM Y NO COMENZAR HASTA 3 D? DESPU?S DEL TRATAMIENTO Prescriptions: New levetiracetam [Keppra] 500 mg tablet 500 mg PO BID Qty: 60 0RF Paxlovid 150-100 mg tablets,dose pack See Rx Instructions .ROUTE .COMPLEX Qty: 20 0RF Rx Instructions: take ONE 150 mg tablet of nirmatrelvir with ONE 100 mg tablet of ritonavir twice daily for 5 days No Action pen needle, diabetic [Pentips] 32 gauge x needle 1 ea miscellaneous DAILY Qty: 100 1RF (DME) FreeStyle Lite Strips Strip See Rx Instructions .ROUTE .COMPLEX Qty: 100 0RF Dose Instruction: USE TO TEST BLOOD SUGAR THREE TIMES DAILY Rx Instructions: USE TO TEST BLOOD SUGAR THREE TIMES DAILY atorvastatin 20 mg tablet 20 mg PO BEDTIME Qty: 30 11RF Trulicity 3 mg/0.5 mL pen injector 3 mg subcut QWEEK Qty: 2 5RF Tresiba FlexTouch U-200 200 unit/mL (3 mL) insulin pen 34 unit SUBCUT BEDTIME Qty: 9 5RF albuterol sulfate [Proventil HFA] 90 mcg/actuation Hfa Aerosol Inhaler 1 puff INHALATION QID PRN (Reason: Wheezing) ibuprofen 600 mg tablet 600 mg PO Q6H PRN (Reason: pain) Qty: 20 0RF (DME) lancets [FreeStyle Lancets] 28 gauge misc See Rx Instructions .ROUTE .MEDSUPPLY Qty: 100 11RF Rx Instructions: Three times a data day lisinopril-hydrochlorothiazide 20-25 mg tablet 1 tab PO QAM cholecalciferol (vitamin D3) 50 mcg (2,000 unit) tablet 50 mcg PO QAM melatonin 5 mg tablet 5 mg PO QPM (DME) FreeStyle Brian 2 [place] Misc See Rx Instructions .Route Qty: 1 0RF Rx Instructions: As directed (DME) lancets [TRUEplus Lancets] 33 gauge misc See Rx Instructions .ROUTE QID Qty: 100 Rx Instructions: As directed olmesartan 5 mg tablet 5 mg PO QAM Reguloid (aspartame) 3 gram/5.8 gram powder PO QAM lidocaine 5 % adhesive patch,medicated 0 patch topical Trulicity 4.5 mg/0.5 mL pen injector subcut QWEEK diclofenac sodium 1 % gel 1 - 2 g topical BID PRN (Reason: pain (scale score 1-3)) Qty: 100 3RF Rx Instructions: to affected joints tizanidine 4 mg tablet 4 mg PO Q8H PRN (DME) CPAP Machine/Device Device See Rx Instructions .Route Rx Instructions: As directed prazosin 5 mg capsule 5 mg PO BEDTIME fluticasone propion-salmeterol [Advair Diskus] 250-50 mcg/dose blister with device 1 ea inhalation alcohol swabs [Alcohol Prep Pads] Pads, Medicated 0 pad topical DIRECTED gabapentin 300 mg capsule 900 mg PO BEDTIME propranolol 40 mg tablet 40 mg PO BID Jardiance 25 mg tablet 25 mg PO QAM (DME) FreeStyle Brian 2 Sensor Kit See Rx Instructions .Route Qty: 2 6RF Rx Instructions: As directed change every 14 days Print Language: Latvian
[2023-08-16] MEDS: levETIRAcetam 500 MG TABLET PO (15:18)
--- NOTE | 2023-08-16 15:20 | PC.NURSE ---
pt medicated per oct. resting quietly on stretcher in no apparent distress. waiting for his girl to come visit. rr even/unlabored. plan of care ongoing.
== END 2023-08-16 15:45 | disposition home or self-care (01) ==
PROVIDERS: Emergency Provider Emergency Medicine; PCP Registered Nurse
DX: U07.1 COVID-19 (principal); G40.909 Epilepsy, unspecified, not intractable, without status epilepticus; R07.89 Other chest pain; Z79.899 Other long term (current) drug therapy
CPT/HCPCS: 0241U; 36415; 71045; 80048; 84484; 85025; 93005; 99283; 99285

== ENCOUNTER → 2023-08-16 13:43 | Outpatient (BNV) | payer MEDICAID, SELFPAY | PROVIDERS: Emergency Provider Emergency Medicine; PCP Registered Nurse; Visit Provider Internal Medicine Cardiovascular Disease | DX: R07.9 Chest pain, unspecified (principal) | CPT/HCPCS: 93010 ==

== ENCOUNTER 2023-09-05 13:46 | Outpatient (AMB) | payer MEDICAID, SELFPAY ==
--- NOTE | 2023-09-05 13:56 | MHC.OFFVIS ---
Intake Vital Signs 09/05/23 13:57 Height 5 ft 2 in Weight 265 lb 3.457 oz BMI 48.5 BP 142/82 H Blood Pressure Location Lt brachial Position Sitting Pulse 81 Pulse Source Pulse Oximeter Intake Visit Reasons: DM Intake Note: Patient presents today to follow up on DMT2. Last Diabetic Eye exam: 12/2022 Last Podiatry Visit:None Random Glucose: 151mg/dl HgA1C:7.6% Child Welfare Manager Required: No Accompanied by: Self / Same As Patient Allergies No Known Allergies Allergy (Verified 09/05/23 14:04) HPI HPI Comments History of Present Illness Details Patient is a 58 yo male with DM type 2 diagnosed over 20 years ago, who presents for continued management of diabetes. Past medical history: DM2, HTN, HLD, seizures, lap band 2008 Micro and macrovascular complications: none known Diabetes medications: metformin 1000mg twice a day , Tresiba 28 units, Trulicity 3.0mg/week, Jardiance 10mg Dexcom download shows s he is using the sensor 100% of the time. Average glucose is 174 with G mi of 7.5% and standard deviation of 32. 65% range with 35% hyperglycemia and no hypoglycemia Symptoms reported: + numbness, tingling, in lower extremities worse when sleeps Hypoglycemia: Denies Hyperglycemia: + urinary frequency , nocturia (2-3x), + polydypsia Eye exams: , last exam 12/2022 no retinopathy Laboratory Tests 09/14/21 19:29 Creatinine 1.69 H Estimated GFR 31 03/30/21 03/30/21 12:15 12:15 Creatinine 1.24 Estimated GFR 45 25-OH Vitamin D To jeff 33 TSH 3.10 PFSH 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 myelopathy Disc degeneration, lumbar Hip osteoarthritis Sacroiliitis Illiterate Morbid obesity due to excess calories Diabetes mellitus type 2, controlled, without complications Essential hypertension Hyperlipidemia LDL goal <100 Panic attacks VELASQUEZ on CPAP History of tremor Gender dysphoria Anxiety Depression Asthma Epilepsy Hypertension Surgical History History of esophagogastroduodenoscopy (EGD) Hx of laparoscopic gastric banding Family History Father CVD (cardiovascular disease) Mother Hypertension Social History Household Members: Children and None Household Members Other:: 2 dogs Are you a primary continuum of care manager to a significant other at home: No Do you presently have visiting nurse or other home services: Yes Alcohol intake: former Patient Tobacco Use Status: Former Tobacco user Quit Date: 07/13/2020 Substance Use Type: Marijuana Physical Exam Vital Signs: Last Vital Signs Pulse 81 09/05/23 13:57 BP 142/82 H 09/05/23 13:57 BMI result Body Mass Index 48.5 Absence of Cushingoid features. Absence of acromegalic features. Neck exam reveals nl size thyroid about 15 gms. No thyroid nodules palpable. No carotid bruits present. Lungs CTA. Heart S1 S2, Reg R/R. No M/R/ G. Skin exam reveals absence of vitiligo or acanthosis nigricans. Abdominal exam reveals Soft NT/ND with NA BS. No organomegaly present. Neck Other: . Extrem Other: Visual exam of foot performed. No ulcerations or open lesions. R forth toe with scaly lesion No onchomycosis, no callouses.Pulses 2 + distally Sensation intact to monofilament exam. Vibratory sensation sensed is intact with 128 Hz tuning fork Results AMB Hemoglobin A1c AMB Hemoglobin A1c 7.6 % Last Edit by Christi Pickens on 09/05/23 14:17 Results Reviewed Results Reviewed: Laboratory Last Values Glucose (Clinic) 151 mg/dL (60-115) H 09/05/23 14:07 Hgb A1c (Clinic) 7.6 % (4.0-6.0) H 09/05/23 14:11 Assessment & Plan Assessment & Plan (1) Uncontrolled type 2 diabetes mellitus: Comment: Pt reports she is unable to read/write Code(s): E11.65 - Type 2 diabetes mellitus with hyperglycemia Qualifiers: Glycemic state: with hyperglycemia Qualified Code(s): E11.65 - Type 2 diabetes mellitus with hyperglycemia Plan: This is a 57-year-old female with a history of type 2 diabetes being treated with Jardiance, Trulicity and basal insulin with fair but improved glycemic control and known microvascular complications namely CKD. Plan is talk to the patient about switching Trulicity to Ozempic 1 mg Qwkly and to Mounjaro if not tolerated. Went over side effects of Ozempic and Mounjaro including but not limited to nausea, vomiting rare risk of pancreatitis. Also took the liberty referring the patient to stamping mill tender. Mounjaro 2.5 mg samples given the patient lot #[id number] A exploration 05/23/2025 Orders: Orders AMB Hemoglobin A1c Today E11.65 - Type 2 diabetes mellitus with hyperglycemia Referrals Podiatry Referral E11.65 - Type 2 diabetes mellitus with hyperglycemia Medications: New semaglutide (Ozempic) 1 mg (0.75 mL) subcut QWEEK 3 mL 3RF Discontinued dulaglutide (Trulicity) Discontinued Reason: Doctor's Order 3 mg (0.5 mL) subcut QWEEK 2 mL 5RF Coding Level of Care Code Est Pt Level 4 (41284) Diagnoses Uncontrolled type 2 diabetes mellitus with hyperglycemia E11.65 Glycemic state: with hyperglycemia
[2023-09-05 13:57] VITALS: BP 142/82; PULSE 81; BMI 48.5
== END 2023-09-05 14:40 | disposition home or self-care (01) ==
PROVIDERS: PCP Registered Nurse; Visit Provider Internal Medicine Endocrinology, Diabetes & Metabolism
DX: E11.65 Type 2 diabetes mellitus with hyperglycemia (principal)
CPT/HCPCS: 99214

== ENCOUNTER → 2023-09-05 13:46 | Outpatient (BNVA) | payer MEDICAID, SELFPAY | PROVIDERS: PCP Registered Nurse; Visit Provider Internal Medicine Endocrinology, Diabetes & Metabolism | DX: E11.65 Type 2 diabetes mellitus with hyperglycemia (principal) | CPT/HCPCS: 82947; 83036; 99212 ==

== ENCOUNTER 2023-10-03 11:20 | Outpatient (REF) | payer MEDICAID, SELFPAY ==
[2023-10-03 13:16] LABS: MANUAL DIFF FLAG NO
[2023-10-03 13:17] LABS: Basophils Percent Auto 0.4 % (0-2); Eosinophils Absolute Auto 0.2 X10*3/uL (0.0-0.4); Eosinophils Percent Auto 2.1 % (0-4); Hematocrit 45.2 % (37.0-47.0); Hemoglobin 14.1 g/dl (12.0-16.0); Imm Gran Abs Auto 0.03 X10*3/uL (0.00-0.03); Imm Gran Pct Auto 0.3 % (0.0-0.4); Lymphocytes Absolute Auto 3.2 X10*3/uL (1.2-4.9); Mean Corpuscular HGB Conc 31.2 g/dl (31.0-35.0); Mean Corpuscular Hemoglobin 24.6 pg (27.0-33.0); Mean Corpuscular Volume 78.7 fL (80.0-98.0); Monocytes Absolute Auto 0.6 X10*3/uL (0.1-1.2); Monocytes Percent Auto 5.8 % (2-11); Neutrophils Absolute Auto 6.9 x10*3/uL (2.0-8.3); Neutrophils Percent Auto 62.4 % (45-73); Platelet Count 315 X10*3/uL (160-400); Red Blood Count 5.74 X10*6/uL (4.20-5.50); Red Cell Distribution Width 16.4 % (11.0-16.0)
[2023-10-03 13:35] LABS: Anion Gap 12 (12-20); Blood Urea Nitrogen 19 mg/dL (9-16); Calcium 9.5 mg/dL (8.4-10.2); Carbon Dioxide 20 mmol/L (22-29); Chloride 110 mmol/L (96-108); Estimated Glomerular Filt Rate 51; Glucose Random 153 mg/dL (60-115); Sodium 138 mmol/L (135-145)
== END 2023-10-03 11:21 | disposition home or self-care (01) ==
LOC: HO.HHCL 11:20
PROVIDERS: Visit Provider Registered Nurse
DX: N30.90 Cystitis, unspecified without hematuria (principal); Z87.442 Personal history of urinary calculi; E11.65 Type 2 diabetes mellitus with hyperglycemia; Z79.4 Long term (current) use of insulin
CPT/HCPCS: 36415; 80048; 85025; 87086; 87088; 87186

== ENCOUNTER 2023-10-10 14:09 | Outpatient (REF) | payer MEDICAID, SELFPAY ==
--- NOTE | ~2023-10-10 | CT_ITS ---
EXAMINATION: CT ABDOMEN WITHOUT CONTRAST CLINICAL INFORMATION: Acute renal colonic and history of kidney stones. COMPARISON: None available. TECHNIQUE: Contiguous axial thin section helical images of the abdomen were performed without contrast. The data set was reformatted in the coronal and sagittal planes and reviewed on an independent workstation. This CT examination was performed using dose optimization techniques as appropriate, variously including the following: *Automated exposure control *Adjustment of mA and/or kV according to patient size (this includes techniques or standardized protocols for targeted exams where dose is matched to indication/reason for exam; i.e. extremities or head) *Use of iterative reconstruction technique DLP: 552 mGy-cm FINDINGS: LUNG BASES: There is mild atelectatic changes right lower lobe. Heart size is normal. There is no coronary artery calcification. No pericardial or pleural effusion. LIVER, GALLBLADDER, BILIARY TREE: The liver is normal size, contour and density. No focal lesion or intrahepatic ductal dilatation seen. There are no radiopaque gallstones or wall thickening. PANCREAS: The pancreas is homogeneous in size and density. No focal lesion seen. The peripancreatic borders are maintained normal. SPLEEN: The spleen is unremarkable. ADRENAL GLANDS AND KIDNEYS: The adrenal glands are symmetrical and normal. Both kidneys are normal size, shape and position. No radiopaque renal calculi or hydronephrosis seen. There are punctate two 2 m radiopaque calculi lower pole right kidney. There is a hypodense exophytic 1.1 cm cyst measuring 74 Hounsfield units. Minimal bilateral perinephric stranding. BOWEL LOOPS: There is scattered stool, diverticula and gas seen in the colon without distention or mural thickening. The small bowel loops are normal caliber. Appendix is not included in the [id number]. The peritoneum is grossly unremarkable. There is a gastric lap band appears to have slipped and lies outside medial to the fundus and anterior to the GE junction LYMPH NODES: Normal. VASCULAR: Unremarkable. BONES: There are mild degenerative disc changes L3-L4, L4-L5, L5/S1 disc levels with ventral and posterior spondylosis. No aggressive lytic or sclerotic process seen. CT/CT abdomen wo IV con IMPRESSION: The gastric lap band appears to have slipped and now lies medial to the fundus and anterior to the GE junction. Mild atelectatic changes right lower lobe two 2 mm small nonobstructive radiopaque calculi lower pole right kidney. A complex exophytic cyst lower pole right kidney Fleischner guidelines were followed.
== END 2023-10-10 14:10 | disposition home or self-care (01) ==
LOC: HO.CT 14:09
PROVIDERS: PCP Registered Nurse; Visit Provider Registered Nurse
DX: N23 Unspecified renal colic (principal); Z87.442 Personal history of urinary calculi
CPT/HCPCS: 74150

== ENCOUNTER 2023-10-27 13:54 | Emergency (ER) | payer MEDICAID, SELFPAY ==
--- NOTE | ~2023-10-27 | CT_ITS ---
EXAMINATION: CT HEAD WITHOUT CONTRAST CLINICAL INFORMATION: Head injury, loss of consciousness COMPARISON: CT head 07/15/2021 TECHNIQUE: Contiguous axial imaging was performed from the skull base to vertex without intravenous administration of contrast. This CT examination was performed using dose optimization techniques as appropriate, variously including the following: *Automated exposure control *Adjustment of mA and/or kV according to patient size (this includes techniques or standardized protocols for targeted exams where dose is matched to indication/reason for exam; i.e. extremities or head) *Use of iterative reconstruction technique DLP: 804 mGy-cm FINDINGS: There is no evidence of acute intracranial hemorrhage or territorial infarction. No abnormal mass effect or midline shift is seen. Wise to white matter differentiation is well preserved. No extra-axial fluid collections are identified. The ventricles are normal in size. No abnormal attenuation in the brain parenchyma. No acute calvarial fracture.. Basilar cisterns are patent. Cerebellum is appropriately positioned. Paranasal sinuses and mastoid air cells are well-aerated. CT/CT head/brain wo IV con IMPRESSION: No CT evidence of acute intracranial hemorrhage or edematous territorial infarction.
[2023-10-27 13:57] VITALS: BP 152/96; PULSE 89; RESP 18; TEMP 36.6; O2SAT 96; BMI 47.5
--- NOTE | 2023-10-27 13:57 | ED_ITS ---
HPI - Head Injury General Chief complaint: Head Injury Stated complaint: Head inj Time Seen by Provider: 10/27/23 14:18 Source: patient Mode of arrival: ambulatory Limitations: no limitations History of Present Illness HPI Narrative: This is a 58-year-old patient who has a history of a seizure disorder, sleep apnea, hyperlipidemia, diabetes, hypertension, obesity who presents to the ER with complaints of headache. Patient reports that on Saturday she was walking and felt very dizzy and lightheaded causing her to fall to the ground with a head strike. Unsure of loss of consciousness. She tells me she came to the ER that day but left due to long wait and was not seen by provider. She returns today for continued headache and nausea. No associated vomiting, vision changes, neck pain, back pain. No AC therapy. Patient reports she has two different CHARGE MASTER COORDINATOR's at home, a nurse for medications. Related Data Home Medications Medication Instructions Recorded Confirmed albuterol sulfate 90 mcg/actuation 1 puff inhalation QID PRN Wheezing 07/14/20 07/24/23 aerosol inhaler (Proventil HFA) tizanidine 4 mg tablet 4 mg PO Q8H PRN 08/01/22 07/24/23 CPAP (CPAP Machine/Device) 08/08/22 07/24/23 alcohol swabs (Alcohol Prep Pads) 0 pad topical DIRECTED 08/08/22 07/24/23 fluticasone 250 mcg-salmeterol 50 1 ea inhalation 08/08/22 07/24/23 mcg/dose blistr powdr for inhalation (Advair Diskus) gabapentin 300 mg capsule 900 mg PO BEDTIME 08/08/22 07/24/23 prazosin 5 mg capsule 5 mg PO BEDTIME 08/08/22 07/24/23 propranolol 40 mg tablet 40 mg PO BID 08/08/22 07/24/23 lisinopril 20 1 tab PO QAM 10/01/22 07/24/23 mg-hydrochlorothiazide 25 mg tablet cholecalciferol (vitamin D3) 50 50 mcg PO QAM 12/21/22 07/24/23 mcg (2,000 unit) tablet melatonin 5 mg tablet 5 mg PO QPM 12/21/22 07/24/23 empagliflozin 25 mg tablet 25 mg PO QAM 01/24/23 07/24/23 (Jardiance) lancets 33 gauge (TRUEplus Lancets) #100 ea 04/25/23 07/24/23 lidocaine 5 % topical patch 0 patch topical 04/25/23 07/24/23 olmesartan 5 mg tablet 5 mg PO QAM 04/25/23 07/24/23 psyllium husk (aspartame) 3 g PO QAM 04/25/23 07/24/23 gram/5.8 gram oral powder (Reguloid (aspartame)) Previous Rx's Medication Instructions Recorded ibuprofen 600 mg tablet 600 mg PO Q6H PRN pain #20 tabs 03/14/21 lancets 28 gauge (FreeStyle #100 ea 12/22/21 Lancets) pen needle, diabetic 32 gauge x 1 ea miscellaneous DAILY #100 ea 05/14/22 (Pentips) flash glucose scanning reader #1 ea 12/21/22 (FreeStyle Brian 2 [place]) blood sugar diagnostic (FreeStyle #100 strips 02/26/23 Lite Strips) atorvastatin 20 mg tablet 20 mg PO BEDTIME #30 tabs 02/28/23 diclofenac sodium 1 % topical gel 1 - 2 g topical BID PRN pain 04/25/23 (scale score 1-3) #100 grams insulin degludec 200 unit/mL (3 34 unit (0.17 mL) subcut BEDTIME 04/26/23 mL) subcutaneous pen (Tresiba #9 mL FlexTouch U-200 insulin) flash glucose sensor (FreeStyle #2 ea 06/03/23 Brian 2 Sensor kit) levetiracetam 500 mg tablet 500 mg PO BID #60 tabs 08/16/23 (Keppra) nirmatrelvir 150 mg-ritonavir 100 See Rx Instructions PO .COMPLEX 08/16/23 mg tablets in a dose pack #20 ea (Paxlovid) semaglutide 1 mg/dose (4 mg/3 mL) 1 mg (0.75 mL) subcut QWEEK #3 mL 09/05/23 subcutaneous pen injector (Ozempic) Allergies Allergy/AdvReac Type Severity Reaction Status Date / Time No Known Allergies Allergy Verified 10/27/23 13:57 Review of Systems 2 Review of Systems: Yes all other systems are reviewed and are negative Constitutional: Constitutional: Reports no additional constitutional complaints, Denies body ache(s), Denies chills, Denies fever(s), Reports headache(s) and Denies weakness Eyes: Eyes: Reports no additional eye complaints and Denies change in vision ENT: Reports system reviewed and no additional complaints, except as documented, Reports dizziness, Reports headache(s), Denies nasal congestion, Denies nasal discharge and Denies neck pain Cardiovascular: Cardiovascular: Reports no additional cardiovascular complaints, Denies chest pain, Denies leg edema and Denies dyspnea Respiratory: Respiratory: Reports no additional respiratory complaints, Denies cough and Denies dyspnea Gastrointestinal: Gastrointestinal: Reports no additional gastrointestinal complaints, Denies abdominal pain, Denies diarrhea, Reports nausea and Denies vomiting Genitourinary: Genitourinary: Reports no additional female genitourinary complaints and Denies urinary incontinence Musculoskeletal: Musculoskeletal: Reports no additional musculoskeletal complaints, Denies back pain, Denies arthralgias, Denies joint swelling, Denies neck pain, Denies numbness and Denies tingling Integumentary/Breasts: Skin/Breast: Reports system reviewed and no additional complaints, except as docu and Denies rash Neurologic: Reports system reviewed and no additional complaints, except as documented, Denies Abnormal speech present, Reports dizziness, Reports headache(s), Denies numbness, Denies tingling and Denies weakness PMF Past Medical History Attestation statement: The following information was validated with the patient. 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 Disc degeneration, lumbar Hip osteoarthritis Sacroiliitis Illiterate Morbid obesity due to excess calories Diabetes mellitus type 2, controlled, without complications Essential hypertension Hyperlipidemia LDL goal <100 Panic attacks VELASQUEZ on CPAP History of tremor Gender dysphoria Anxiety Depression Asthma Epilepsy Hypertension Surgical History History of esophagogastroduodenoscopy (EGD) Hx of laparoscopic gastric banding Family History Family History Father CVD (cardiovascular disease) Mother Hypertension Social History Social History Household Members: Children and None Household Members Other:: 2 dogs Are you a primary rn home care to a significant other at home: No Do you presently have visiting nurse or other home services: Yes Alcohol intake: former Patient Tobacco Use Status: Former Tobacco user Quit Date: 07/13/2020 Smoked in Last 30 Days: No Use of substances other than those prescribed or required for medical reasons: No Substance Use Type: Marijuana Advance Directives: No Advance Directives Information Provided: No Physical Exam 2 Vital Signs: Vital Signs: Last Vital Signs Temp 97.8 F 10/27/23 14:18 Pulse 104 H 10/27/23 15:29 Resp 18 10/27/23 14:18 BP 108/74 10/27/23 15:29 Pulse Ox 97 10/27/23 14:18 O2 Del Method Room Air 10/27/23 14:18 BMI result Body Mass Index 47.5 Const: General: cooperative, healthy appearing, comfortable and no acute distress Orientation/consciousness: patient oriented x3 Limitations: no limitations HEENT: Head: Yes normal to inspection Ears: hearing grossly normal bilaterally and TM's normal bilaterally General nose exam: Normal external nose present Face and sinus: Yes normal facial exam Mouth: Normal oral and palatal mucosa present Throat: Yes posterior oropharynx normal Eyes: General: appearance normal, both eyes and all related structures P upils: Equal, round and reactive pupils present Neck: Neck: Yes normal visual inspection, Yes full ROM, Yes no lymphadenopathy and Yes no meningeal signs Chest: Chest palpation & inspection: normal inspection of the chest Resp: Effort & Inspection: normal respiratory effort Auscultation: clear to auscultation bilaterally Cardio: Rate: regular rate Rhythm: regular rhythm Peripheral pulses: P eripheral pulses 2+ throughout GI: Inspection: Yes normal to inspection Palpation (GI): Soft to palpation and nontender Auscultation: normal bowel sounds Back/Spine/Pelvis: Thoracic/Lumbar Spine: thoracic and lumbar spine normal to inspection Skin: General skin exam: no rashes or lesions noted Neuro: General: patient oriented x3, moves all extremities, no meningeal signs, no focal motor deficits and normal sensation to monofilament Cranial nerves: Yes CN's II-XII intact bilaterally, Yes Equal, round and reactive pupils present, Yes Bilaterally intact EOM present, Yes Nystagmus not present, Yes Normal facial strength present and Yes Midline tongue present Cognition (Neuro): normal cognition Speech: No Abnormal speech present Gait exam (Neuro): Normal gait present Motor exam (neuro): 5/5 motor strength present throughout Sensory Exam: Normal double simultaneous stimulation for sensation Coordination: [id number] test normal, obgo-bj-obby test normal and tandem gait normal Extrem: General: Yes normal to inspection Course Course Course Narrative: This is an RME: Additional HPI, ROS, PE not included below will be deferred to primary provider. Patient is a 60 year old presents emergency department for evaluation. Reports a fall 2 days ago on Saturday, was walking and then suddenly just fell, endorses precipitating dizziness denies any mechanical nature to the fall. Reports associated LOC but unknown duration. Has a seizure history but does not believe that this was secondary to a seizure. Presents today for continued pain to the left lateral side of the head, dizziness, no vomiting. Denies use of anticoagulants. Plan: Labs, EKG, CT head Reevaluation(s) Reevaluation #1: Labs, EKG, imaging all unremarkable in the ER. Orthostatics were positive so the patient received 1 L of IV fluid. Post fluids will be discharged home Medical Decision Making Medical Decision Making [facility] Narrative: This is a 58-year-old patient who has a history of a seizure disorder, sleep apnea, hyperlipidemia, diabetes, hypertension, obesity who presents to the ER with complaints of headache. Patient reports that on Saturday she was walking and felt very dizzy and lightheaded causing her to fall to the ground with a head strike. Unsure of loss of consciousness. She tells me she came to the ER that day but left due to long wait and was not seen by provider. She returns today for continued headache and nausea. No associated vomiting, vision changes, neck pain, back pain. No AC therapy. Patient reports she has two different CHARGE MASTER COORDINATOR's at home, a nurse for medications. Normal neuro with no focal deficits VSS WIll obtain labs, EKG, orthos, CT head Differential Diagnosis Differential Diagnoses: The differential diagnosis associated with the presentation includes Low suspicion for intracranial hemorrhage, basilar skull fracture Orthostatic hypotension, electrolyte abnormality, anemia, ACS Admission/Observation Consideration of admission/observation: Escalation of care including admission/observation considered Patient normal neuro exam, up and ambulating with a steady gait. No need for further imaging and/or admission Lab Data [facility] Lab Attestation statement: I reviewed the patient's lab results. 10/27/23 14:37 10/27/23 14:37 Labs: Lab Results 10/27/23 Range/Units 14:37 WBC 10.9 H (4.8-10.8) X10*3/uL RBC 5.41 (4.20-5.50) X10*6/uL Hgb 13.0 (12.0-16.0) g/dl Hct 42.1 (37.0-47.0) % MCV 77.8 L (80.0-98.0) fL MCH 24.0 L (27.0-33.0) pg MCHC 30.9 L (31.0-35.0) g/dl RDW 15.4 (11.0-16.0) % Plt Count 287 (160-400) X10*3/uL MPV 10.0 (9.4-12.3) fL Immature Gran % (Auto) 0.3 (0.0-0.4) % Neut % (Auto) 68.3 (45-73) % Lymph % (Auto) 24.1 (20-40) % Charlton % (Auto) 4.8 (2-11) % Eos % (Auto) 2.2 (0-4) % Baso % (Auto) 0.3 (0-2) % Lymph # (Auto) 2.6 (1.2-4.9) X10*3/uL [place]ton # (Auto) 0.5 (0.1-1.2) X10*3/uL Eos # (Auto) 0.2 (0.0-0.4) X10*3/uL Baso # (Auto) 0.0 (0.0-0.2) X10*3/uL Abs Immat Gran (auto) 0.03 (0.00-0.03) X10*3/uL Absolute Neuts (auto) 7.5 (2.0-8.3) x10*3/uL Absolute Nucleated RBC 0.000 (0.0-0.012) X10*3/uL Nucleated RBC % (auto) 0.0 (0.0-0.2) /100WBC PT 12.0 (11.1-13.3) SEC INR 1.0 (0.9-1.1) Sodium 141 (135-145) mmol/L Potassium 4.6 (3.3-5.1) mmol/L Chloride 109 H (96-108) mmol/L Carbon Dioxide 22 (22-29) mmol/L Anion Gap 15 (12-20) BUN 15 (9-16) mg/dL Creatinine 1.08 (0.5-1.4) mg/dL Estim Creat Clear Calc 67.5 Estimated GFR 52 Random Glucose 125 H (60-115) mg/dL Calcium 8.9 D (8.4-10.2) mg/dL Magnesium 1.9 (1.6-2.6) mg/dL Total Bilirubin 0.4 (0.0-1.0) mg/dL AST 26 (5-31) U/L ALT 18 (0-31) U/L Alkaline Phosphatase 98 (39-117) U/L Troponin I High Sens < 2.7 (<3.5-17.0) ng/L Total Protein 7.7 (6.5-8.0) g/dL Albumin 3.7 (3.5-5.0) g/dL Independent Interpretation I performed an independent interpretation of an: EKG and CT Scan Interpretation: I independently reviewed the CT scan agree with the radiology report I independently reviewed the EKG which shows normal sinus rhythm with a rate 85, normal LA, normal QRS normal QT Radiology Impression Discussion of test interpretation with radiology: I have reviewed the radiologist's reading. Radiologist Impression: [place] [id number] CT Scan Report Signed Patient: Hilda Mcmahan MR#: [id number] : 1965 Acct:[id number] Age/Sex: 58 / F ADM Date: 10/27/23 Loc: HO.ED Attending Dr: Ordering Physician: Estela Seymour CNP Date of Service: 10/27/23 Procedure(s): CT head/brain wo IV con Accession Number(s): [id number] cc: Estela Seymour CNP; [facility]~ EXAMINATION: CT HEAD WITHOUT CONTRAST CLINICAL INFORMATION: Head injury, loss of consciousness COMPARISON: CT head 07/15/2021 TECHNIQUE: Contiguous axial imaging was performed from the skull base to vertex without intravenous administration of contrast. This CT examination was performed using dose optimization techniques as appropriate, variously including the following: *Automated exposure control *Adjustment of mA and/or kV according to patient size (this includes techniques or standardized protocols for targeted exams where dose is matched to indication/reason for exam; i.e. extremities or head) *Use of iterative reconstruction technique DLP: 804 mGy-cm FINDINGS: There is no evidence of acute intracranial hemorrhage or territorial infarction. No abnormal mass effect or midline shift is seen. Wise to white matter differentiation is well preserved. No extra-axial fluid collections are identified. The ventricles are normal in size. No abnormal attenuation in the brain parenchyma. No acute calvarial fracture.. Basilar cisterns are patent. Cerebellum is appropriately positioned. Paranasal sinuses and mastoid air cells are well-aerated. CT/CT head/brain wo IV con IMPRESSION: No CT evidence of acute intracranial hemorrhage or edematous territorial infarction. Prescription Management I considered prescription management with: Pain Medication Discharge Plan Discharge Clinical Impression: Fall, Orthostasis Patient Disposition: Home, Self-Care Instructions: Fall Prevention (ED), Dizziness (ED) Additional Instructions: Change positions slowly Stay well hydrated Take Tylenol for pain as needed Your lab work, CT head, EKG are all normal Prescriptions: No Action pen needle, diabetic [Pentips] 32 gauge x 5/32 needle 1 ea miscellaneous DAILY Qty: 100 1RF (DME) FreeStyle Lite Strips Strip See Rx Instructions .ROUTE .COMPLEX Qty: 100 0RF Dose Instruction: USE TO TEST BLOOD SUGAR THREE TIMES DAILY Rx Instructions: USE TO TEST BLOOD SUGAR THREE TIMES DAILY atorvastatin 20 mg tablet 20 mg PO BEDTIME Qty: 30 11RF Tresiba FlexTouch U-200 200 unit/mL (3 mL) insulin pen 34 unit SUBCUT BEDTIME Qty: 9 5RF albuterol sulfate [Proventil HFA] 90 mcg/actuation Hfa Aerosol Inhaler 1 puff INHALATION QID PRN (Reason: Wheezing) ibuprofen 600 mg tablet 600 mg PO Q6H PRN (Reason: pain) Qty: 20 0RF levetiracetam [Keppra] 500 mg tablet 500 mg PO BID Qty: 60 0RF Paxlovid 150-100 mg tablets,dose pack See Rx Instructions .ROUTE .COMPLEX Qty: 20 0RF Rx Instructions: take ONE 150 mg tablet of nirmatrelvir with ONE 100 mg tablet of ritonavir twice daily for 5 days (DME) lancets [FreeStyle Lancets] 28 gauge misc See Rx Instructions .ROUTE .MEDSUPPLY Qty: 100 11RF Rx Instructions: Three times a data day lisinopril-hydrochlorothiazide 20-25 mg tablet 1 tab PO QAM cholecalciferol (vitamin D3) 50 mcg (2,000 unit) tablet 50 mcg PO QAM melatonin 5 mg tablet 5 mg PO QPM (DME) FreeStyle Brian 2 [place] Misc See Rx Instructions .Route Qty: 1 0RF Rx Instructions: As directed (DME) lancets [TRUEplus Lancets] 33 gauge misc See Rx Instructions .ROUTE QID Qty: 100 Rx Instructions: As directed olmesartan 5 mg tablet 5 mg PO QAM Reguloid (aspartame) 3 gram/5.8 gram powder PO QAM lidocaine 5 % adhesive patch,medicated 0 patch topical diclofenac sodium 1 % gel 1 - 2 g topical BID PRN (Reason: pain (scale score 1-3)) Qty: 100 3RF Rx Instructions: to affected joints tizanidine 4 mg tablet 4 mg PO Q8H PRN (DME) CPAP Machine/Device Device See Rx Instructions .Route Rx Instructions: As directed prazosin 5 mg capsule 5 mg PO BEDTIME fluticasone propion-salmeterol [Advair Diskus] 250-50 mcg/dose blister with device 1 ea inhalation alcohol swabs [Alcohol Prep Pads] Pads, Medicated 0 pad topical DIRECTED gabapentin 300 mg capsule 900 mg PO BEDTIME propranolol 40 mg tablet 40 mg PO BID Jardiance 25 mg tablet 25 mg PO QAM (DME) FreeStyle Brian 2 Sensor Kit See Rx Instructions .Route Qty: 2 6RF Rx Instructions: As directed change every 14 days Ozempic 1 mg/dose (4 mg/3 mL) pen injector 1 mg subcut QWEEK Qty: 3 3RF Referrals: Ginger Perez, [facility] [Primary Care Provider] - 10 days
--- NOTE | 2023-10-27 14:00 | ECG_ITS ---
Test Reason : HEAD INJURY Blood Pressure : / mmHG Vent. Rate : 085 BPM Atrial Rate : 085 BPM P-R Int : 180 ms QRS Dur : 082 ms QT Int : 390 ms P-R-T Axes : 052 005 024 degrees QTc Int : 464 ms Normal sinus rhythm Normal ECG When compared with ECG of 16-AUG-2023 13:48, No significant change was found Referred By: Estela Seymour Electronically Signed By:CHAVO INFANTE
[2023-10-27 14:18] VITALS: BP 167/71; PULSE 83; RESP 18; TEMP 36.6; O2SAT 97
--- NOTE | 2023-10-27 14:22 | PC.NURSE ---
Pt presents to ED from home. Pt reports they got dizzy and fell in their kitchen on Saturday, believes they lost consciousness, unknown how long. Pt has hx of seizures, takes meds daily (no missed doses), is unsure if they had a seizure during this event. Pt reports they believes they hit their head during episode, has had left sided head pain and nausea since Saturday. Pt did not get assessed after episode on Saturday. Pt is alert and oriented, breathing even and unlabored, skin WNL. Pt denies any SOB, CP, blurred vision, vomiting. Pt reports head pain, left side, 9/10 at this time. Pt neg for unilateral weakness, slurred speech or facial droop. Seizure pads in place as precaution.
[2023-10-27 14:41] LABS: MANUAL DIFF FLAG NO
[2023-10-27 14:42] LABS: Basophils Percent Auto 0.3 % (0-2); Eosinophils Absolute Auto 0.2 X10*3/uL (0.0-0.4); Eosinophils Percent Auto 2.2 % (0-4); Hematocrit 42.1 % (37.0-47.0); Imm Gran Abs Auto 0.03 X10*3/uL (0.00-0.03); Imm Gran Pct Auto 0.3 % (0.0-0.4); Lymphocytes Absolute Auto 2.6 X10*3/uL (1.2-4.9); Lymphocytes Percent Auto 24.1 % (20-40); Mean Corpuscular HGB Conc 30.9 g/dl (31.0-35.0); Mean Corpuscular Volume 77.8 fL (80.0-98.0); Monocytes Absolute Auto 0.5 X10*3/uL (0.1-1.2); Monocytes Percent Auto 4.8 % (2-11); Neutrophils Absolute Auto 7.5 x10*3/uL (2.0-8.3); Neutrophils Percent Auto 68.3 % (45-73); Platelet Count 287 X10*3/uL (160-400); Red Blood Count 5.41 X10*6/uL (4.20-5.50); Red Cell Distribution Width 15.4 % (11.0-16.0); White Blood Count 10.9 X10*3/uL (4.8-10.8)
[2023-10-27 15:01] LABS: Alanine Aminotransferase 18 U/L (0-31); Albumin Level 3.7 g/dL (3.5-5.0); Alkaline Phosphatase 98 U/L (39-117); Anion Gap 15 (12-20); Aspartate Amino Transferase 26 U/L (5-31); Bilirubin Total 0.4 mg/dL (0.0-1.0); Blood Urea Nitrogen 15 mg/dL (9-16); Calcium 8.9 mg/dL (8.4-10.2); Carbon Dioxide 22 mmol/L (22-29); Chloride 109 mmol/L (96-108); Creatinine Clr Calc Pharmacy 67.5; Estimated Glomerular Filt Rate 52; Glucose Random 125 mg/dL (60-115); Magnesium 1.9 mg/dL (1.6-2.6); Potassium 4.6 mmol/L (3.3-5.1); Sodium 141 mmol/L (135-145); Total Protein 7.7 g/dL (6.5-8.0)
[2023-10-27 15:12] LABS: Troponin-I High Sensitivity < 2.7 ng/L (<3.5-17.0)
[2023-10-27 15:27] VITALS: BP 150/85; BP 153/91; PULSE 75; PULSE 80
[2023-10-27 15:29] VITALS: BP 108/74; PULSE 104
[2023-10-27] MEDS: 0.9 % Sodium Chloride 1,000 ML 999 ML IV (15:37)
[2023-10-27 16:58] VITALS: BP 165/84; PULSE 74; RESP 16; O2SAT 96
== END 2023-10-27 17:09 | disposition home or self-care (01) ==
PROVIDERS: Nurse Practitioner Family; Emergency Provider Emergency Medicine; PCP Registered Nurse
DX: S09.90XA Unspecified injury of head, initial encounter (principal); I95.1 Orthostatic hypotension; R42 Dizziness and giddiness; Y99.8 Other external cause status; R51.9 Headache, unspecified; R11.2 Nausea with vomiting, unspecified; W01.0XXA Fall on same level from slipping, tripping and stumbling without subsequent striking against object, initial encounter; Y93.9 Activity, unspecified; Y92.9 Unspecified place or not applicable; Z79.899 Other long term (current) drug therapy; Z87.891 Personal history of nicotine dependence
CPT/HCPCS: 36415; 70450; 80053; 83735; 84484; 85025; 85610; 93005; 96360; 99284; 99285

== ENCOUNTER → 2023-10-27 14:00 | Outpatient (BNV) | payer MEDICAID, SELFPAY | PROVIDERS: Emergency Provider Emergency Medicine; PCP Registered Nurse; Visit Provider Internal Medicine | DX: R55 Syncope and collapse (principal) | CPT/HCPCS: 93010 ==

== ENCOUNTER 2023-11-28 10:55 | Outpatient (AMB) | payer MEDICAID, SELFPAY ==
--- NOTE | 2023-11-28 11:05 | A.OFFVIS_ITS ---
Intake Vital Signs 11/28/23 11:06 BP 146/82 H Blood Pressure Location Rt brachial Position Sitting Respiration 16 Pulse 87 Pulse Source Pulse Oximeter Pulse Oximetry (%) 97 Oxygen Delivery Method Room Air Intake Visit Reasons: 4 mnts f/u appt for VELASQUEZ-Conf Intake Note: Pt presents for 4 month follow up for VELASQUEZ. Allergies No Known Allergies Allergy (Verified 11/28/23 11:05) HPI HPI Comments History of Present Illness Details 58 y/o female patient presents follow up of seizures like episodes which was likely triggered by her high blood sugars.\ she sees Dr. Jermaine giraldo. her Hg A1 C was 7. 9 in September 2023 No seizure like episodes.she is compliant with keppra 500mg bid and gabapentin 900mg qhs She has been seen here for VELASQUEZ . SHE DOES NOT DRIVE NOW. The home sleep study result was significant for moderately severe VELASQUEZ. The total AHI was 26/hr with excessive snoring. Oxygen gianna was 82 %. APAP [id number] ordered. she is waiting for new CPAP. [facility] 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 myelopathy Disc degeneration, lumbar Hip osteoarthritis Sacroiliitis Illiterate Morbid obesity due to excess calories Diabetes mellitus type 2, controlled, without complications Essential hypertension Hyperlipidemia LDL goal <100 Panic attacks VELASQUEZ on CPAP History of tremor Gender dysphoria Anxiety Depression Asthma Epilepsy Hypertension Surgical History History of esophagogastroduodenoscopy (EGD) Hx of laparoscopic gastric banding Family History Father CVD (cardiovascular disease) Mother Hypertension Social History Household Members: Children and None Household Members Other:: 2 dogs Are you a primary director of primary care to a significant other at home: No Do you presently have visiting nurse or other home services: Yes Alcohol intake: former Patient Tobacco Use Status: Former Tobacco user Quit Date: 07/13/2020 Substance Use Type: Marijuana Review of Systems ENT Reports Normal hearing present Neuro Reports Normal hearing present Physical Exam Vital Signs: Last Vital Signs Pulse 87 11/28/23 11:06 Resp 16 11/28/23 11:06 BP 146/82 H 11/28/23 11:06 Pulse Ox 97 11/28/23 11:06 Oxygen Delivery Method Room Air 11/28/23 11:06 Const General: cooperative and tired appearing Nutritional Appearance: obese Orientation/consciousness: patient oriented x3 HEENT Throat: Yes other (mallampati score 4) Neck Neck: Yes full ROM and Yes supple Resp Effort & Inspection: normal respiratory effort and able to speak in complete sentences Neuro General: patient oriented x3 and moves all extremities Cranial nerves: Yes Bilaterally intact EOM present, Yes Normal facial strength present, Yes Midline tongue present, Yes Symmetric palate elevation present, Yes Normal hearing present, Yes Ability to bilaterally rotate head present and Yes Ability to bilaterally elevate shoulders present Cognition (Neuro): normal cognition Motor exam (neuro): 5/5 motor strength present throughout Psych Appearance: grossly normal Mental Status: mental status grossly normal Speech and movement: Normal speech and movement present Affect: normal affect Attitude: cooperative Assessment & Plan Assessment & Plan (1) Seizures: Code(s): R56.9 - Unspecified convulsions (2) VELASQUEZ (obstructive sleep apnea): Comment: Moderately severe degree of VELASQUEZ. The total AHI was 26/hr and oxygen gianna was 82% Code(s): G47.33 - Obstructive sleep apnea (adult) (pediatric) Plan She did not receive her CPAP yet - will contact home care company continue keppra 500mg bid Gabapentin 900mg qhs EEG report form [facility] No driving F/u with psychiatry Coding Level of Care Code Est Pt Level 4 (64295) Diagnoses Seizures R56.9 VELASQUEZ (obstructive sleep apnea) G47.33
[2023-11-28 11:06] VITALS: BP 146/82; PULSE 87; RESP 16; O2SAT 97
== END 2023-11-28 11:36 | disposition home or self-care (01) ==
PROVIDERS: PCP Registered Nurse; Referring Provider Registered Nurse; Visit Provider Psychiatry & Neurology Neurology
DX: R56.9 Unspecified convulsions (principal); G47.33 Obstructive sleep apnea (adult) (pediatric)
CPT/HCPCS: 99214

== ENCOUNTER → 2023-11-28 10:55 | Outpatient (BNVA) | payer MEDICAID, SELFPAY | PROVIDERS: PCP Registered Nurse; Visit Provider Psychiatry & Neurology Neurology | DX: G47.33 Obstructive sleep apnea (adult) (pediatric) (principal); R56.9 Unspecified convulsions | CPT/HCPCS: 99212 ==

== ENCOUNTER 2023-12-19 13:48 | Outpatient (AMB) | payer MEDICAID, SELFPAY ==
--- NOTE | 2023-12-19 13:51 | MHC.OFFVIS ---
Intake Visit Reasons: Nephrolithiasis Intake Note: New Patient presents for initial visit for Nephrolithiasis Urology Medications: none Blood Thinner: none Product Safety Manager Required: No Accompanied by: Self / Same As Patient Allergies No Known Allergies Allergy (Verified 12/19/23 14:54) Medication List - Last Reconciled 12/19/23 by LOGAN Ruiz albuterol sulfate 90 mcg/actuation (Proventil HFA) 1 puff inhalation QID PRN alcohol swabs (Alcohol Prep Pads) 0 pad topical DIRECTED atorvastatin 20 mg PO BEDTIME blood sugar diagnostic (FreeStyle Lite Strips) USE TO TEST BLOOD SUGAR THREE TIMES DAILY cholecalciferol (vitamin D3) 50 mcg PO QAM CPAP (CPAP Machine/Device) As directed diclofenac sodium 1% 1 - 2 grams topical BID PRN flash glucose scanning reader (iNovo BroadbandStyle Brian 2 [place]) As directed flash glucose sensor (FreeStyle Brian 2 Sensor kit) As directed change every 14 days fluticasone propion-salmeterol 250-50 mcg/dose (Advair Diskus) 1 ea inhalation gabapentin 900 mg PO BEDTIME ibuprofen 600 mg PO Q6H PRN insulin degludec (Tresiba FlexTouch U-200 insulin) 34 units (0.17 mL) subcut BEDTIME lancets (FreeStyle Lancets) Three times a data day lancets (TRUEplus Lancets) As directed levetiracetam (Keppra) 500 mg PO BID lidocaine 5% 0 patches topical lisinopril-hydrochlorothiazide 20-25 mg 2 tabs PO QAM melatonin 5 mg PO QPM nirmatrelvir-ritonavir 150-100 mg (Paxlovid) take ONE 150 mg tablet of nirmatrelvir with ONE 100 mg tablet of ritonavir twice daily for 5 days olmesartan 5 mg PO QAM pen needle, diabetic (Pentips) 1 ea miscellaneous DAILY prazosin 5 mg PO BEDTIME propranolol 40 mg PO BID psyllium husk (aspartame) 3 gram/5.8 gram (Reguloid (aspartame)) grams PO QAM semaglutide (Ozempic) 1 mg (0.75 mL) subcut QWEEK tizanidine 4 mg PO Q8H PRN HPI Comments Details: [place] is a 58 year old assigned female at who is accompanied by his CHECK WRITING MACHINE OPERATOR at todays office visit. He has a past medical history of vitamin-D deficiency, chronic pain syndrome, osteoarthritis, obesity, type 2 diabetes, hypertension, hyperlipidemia, panic attacks, obstructive sleep apnea on CPAP, tremors, gender dysphoria, anxiety, depression, asthma, and epilepsy. He presents to the office today as a new patient for nephrolithiasis and complex renal cyst. In discussion with the patient today he reports having followed up with his PCP for ongoing flank pain he had been experiencing at which time a CT KUB was ordered for further assessment evaluation. These results reviewed with the patient today. Both kidneys are normal in size, shape, and position. No hydronephrosis noted bilaterally. There are 2 punctate 2 mm calculi in the lower pole of the right kidney. There is a hypodense exophytic 1.1 cm cyst. He discusses at length feeling ever since he has had his lap band procedure he has had multiple issues. He reports having followed up with Gastroenterology at [facility]. He discusses his history of suicidal ideation and follows up with his psychiatrist. He otherwise denies any bothersome urinary issues. He denies urinary urgency, urinary frequency, incontinence, nocturia, hematuria, dysuria, foul smelling urine, changes to urinary stream, fever, and or chills. He is happy with his current voiding parameters. 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 Disc degeneration, lumbar Hip osteoarthritis Sacroiliitis Illiterate Morbid obesity due to excess calories Diabetes mellitus type 2, controlled, without complications Essential hypertension Hyperlipidemia LDL goal <100 Panic attacks VELASQUEZ on CPAP History of tremor Gender dysphoria Anxiety Depression Asthma Epilepsy Hypertension Surgical History History of esophagogastroduodenoscopy (EGD) Hx of laparoscopic gastric banding Family History Father CVD (cardiovascular disease) Mother Hypertension Social History Household Members: Children and None Household Members Other:: 2 dogs Are you a primary group care worker to a significant other at home: No Do you presently have visiting nurse or other home services: Yes Alcohol intake: former Patient Tobacco Use Status: Former Tobacco user Quit Date: 07/13/2020 Substance Use Type: Marijuana Review of Systems Const Reports no additional complaints Eyes Reports no additional complaints ENT Reports no additional complaints Card Reports as per HPI Resp Reports as per HPI GI Reports as per HPI Reports as per HPI Musc Reports as per HPI Neuro Reports as per HPI Psych Reports as per HPI Endo Reports as per HPI Jorje/Lymph Reports no additional complaints Aller/Immun Reports no additional complaints Physical Exam Const General: cooperative, comfortable, no acute distress, well developed, alert and awake Nutritional Appearance: overweight Orientation/consciousness: patient oriented x3 Limitations: no limitations HEENT Head: Yes normal to inspection, Yes normocephalic and Yes atraumatic Ears: hearing grossly normal bilaterally Eyes General: appearance normal, both eyes and all related structures Neck Neck: Yes normal visual inspection and Yes trachea midline Chest Chest palpation & inspection: normal inspection of the chest Resp Effort & Inspection: normal respiratory effort and able to speak in complete sentences Cardio Rate: regular rate GI Inspection: Yes normal to inspection General: Yes no CVA tenderness Back/Spine/Pelvis Back: no CVA tenderness Skin General skin exam: no rashes or lesions noted Neuro General: patient oriented x3 Extrem General: Yes normal to inspection Psych Appearance: grossly normal and well kempt Mental Status: mental status grossly normal Speech and movement: Normal speech and movement present and Clear speech present Affect: normal affect Attitude: cooperative Thought process: Normal thought process present Thought content: Normal thought content present Insight: Fair insight present (Psych) Judgement: Fair judgement present (Psych) Results AMB Urinalysis, Automated UA Leukoctes 0 Nicole/uL Last Edit by BTCJam on 12/19/23 14:19 UA Nitrite Negative Last Edit by BTCJam on 12/19/23 14:19 UA Urobilinogen 0.2 mg/dL Last Edit by BTCJam on 12/19/23 14:19 UA Protein 0 mg/dL Last Edit by BTCJam on 12/19/23 14:19 UA pH 6.0 Last Edit by BTCJam on 12/19/23 14:19 UA Blood 0 Hank/uL Last Edit by BTCJam on 12/19/23 14:19 UA Specific [place] 1.015 Last Edit by BTCJam on 12/19/23 14:19 UA Ketone Negative Last Edit by Phillip Mccloud on 12/19/23 14:19 UA Bilirubin 0 mg/dL Last Edit by Phillip Mccloud on 12/19/23 14:19 UA Glucose 500 mg/dL Last Edit by Phillip Mccloud on 12/19/23 14:19 Results Reviewed Results Reviewed: Laboratory Last Values Urine pH (Auto) 6.0 12/19/23 13:53 Specific [place] (Auto) 1.015 12/19/23 13:53 Urine Protein (Auto) 0 mg/dL 12/19/23 13:53 Glucose (UA)(Auto) 500 mg/dL 12/19/23 13:53 Urine Ketones (Auto) Negative 12/19/23 13:53 Urine Blood (Auto) 0 Hank/uL 12/19/23 13:53 Urine Nitrite (Auto) Negative 12/19/23 13:53 Urine Bilirubin (Auto) 0 mg/dL 12/19/23 13:53 Urine Urobilinogen (Auto) 0.2 mg/dL 12/19/23 13:53 Leukocyte Esterase (Auto) 0 Nicole/uL 12/19/23 13:53 Date of Service: 10/10/23 EXAMINATION: CT ABDOMEN WITHOUT CONTRAST FINDINGS: LUNG BASES: There is mild atelectatic changes right lower lobe. Heart size is normal. There is no coronary artery calcification. No pericardial or pleural effusion. LIVER, GALLBLADDER, BILIARY TREE: The liver is normal size, contour and density. No focal lesion or intrahepatic ductal dilatation seen. There are no radiopaque gallstones or wall thickening. PANCREAS: The pancreas is homogeneous in size and density. No focal lesion seen. The peripancreatic borders are maintained normal. SPLEEN: The spleen is unremarkable. ADRENAL GLANDS AND KIDNEYS: The adrenal glands are symmetrical and normal. Both kidneys are normal size, shape and position. No radiopaque renal calculi or hydronephrosis seen. There are punctate two 2 m radiopaque calculi lower pole right kidney. There is a hypodense exophytic 1.1 cm cyst measuring 74 Hounsfield units. Minimal bilateral perinephric stranding. BOWEL LOOPS: There is scattered stool, diverticula and gas seen in the colon without distention or mural thickening. The small bowel loops are normal caliber. Appendix is not included in the [id number]. The peritoneum is grossly unremarkable. There is a gastric lap band appears to have slipped and lies outside medial to the fundus and anterior to the GE junction LYMPH NODES: Normal. VASCULAR: Unremarkable. BONES: There are mild degenerative disc changes L3-L4, L4-L5, L5/S1 disc levels with ventral and posterior spondylosis. No aggressive lytic or sclerotic process seen. IMPRESSION: The gastric lap band appears to have slipped and now lies medial to the fundus and anterior to the GE junction. Mild atelectatic changes right lower lobe two 2 mm small nonobstructive radiopaque calculi lower pole right kidney. A complex exophytic cyst lower pole right kidney Fleischner guidelines were followed. Assessment & Plan Assessment & Plan (1) Complex renal cyst: Code(s): N28.1 - Cyst of kidney, acquired Category: Medical (2) Nephrolithiasis: Code(s): N20.0 - Calculus of kidney Category: Medical Plan In office urinalysis results reviewed with the patient today; as noted above. Recent CT results reviewed with the patient today; as noted above. Discussed at length potential causes of nephrolithiasis as well as complex renal cyst. Will obtain CT renal mass protocol for further assessment evaluation. BUN and creatinine ordered for imaging. Discussed, educated, and stressed the importance of continuing to drink water daily. Discussed adding 1 oz of lemon juice to water daily. Patient currently denies any bothersome urinary issues. He reports be happy with current voiding parameters. Follow-up in 1-2 months with imaging to be completed prior; or sooner with any issues, concerns, and or questions. Orders: Orders CT abdomen pelvis wo/w IV con Today N28.1 - Cyst of kidney, acquired Creatinine Today N28.1 - Cyst of kidney, acquired AMB Urinalysis Automated Today Z13.9 - Encounter for screening, unspecified Blood Urea Nitrogen Today N28.1 - Cyst of kidney, acquired Patient Instructions: The patient had an opportunity to ask questions regarding the treatment plan. All questions were answered. Physical exam, labs, and imaging were discussed and reviewed in detail. As well as risks, benefits, and discussion of treatment choices. No major barriers to understanding were identified. The patient expressed understanding and agreement with the above treatment plan. The patient was made aware they should contact our office by phone for worsening of their current condition, the appearance of new symptoms, or with any questions or concerns. Compliance is encouraged with any medications and follow up testing that is ordered. It is a privilege to be allowed the opportunity to participate in? your urological care.? Again, if you have any questions or concerns If you have any questions or concerns please do not hesitate to contact me. The office is [phone]. This note is constructed using voice recognition software. While every effort has been made to ensure accuracy agricultural produce commission agent errors may have been included. Yours sincerely, LOGAN Ruiz
== END 2023-12-19 14:46 | disposition home or self-care (01) ==
PROVIDERS: PCP Registered Nurse; Visit Provider Nurse Practitioner Family
DX: N28.1 Cyst of kidney, acquired (principal); N20.0 Calculus of kidney; Z13.9 Encounter for screening, unspecified
CPT/HCPCS: 99204

== ENCOUNTER → 2023-12-19 13:48 | Outpatient (BNVA) | payer MEDICAID, SELFPAY | PROVIDERS: PCP Registered Nurse; Visit Provider Nurse Practitioner Family | DX: N28.1 Cyst of kidney, acquired (principal); N20.0 Calculus of kidney | CPT/HCPCS: 81003; 99212 ==

== ENCOUNTER 2023-12-24 13:39 | Outpatient (AMB) | payer MEDICAID, SELFPAY ==
--- NOTE | 2023-12-24 13:51 | MHC.OFFVIS ---
Vital Signs 12/24/23 14:02 Height 5 ft 2 in Weight 263 lb 3.711 oz BMI 48.1 BP 110/74 Blood Pressure Location Rt brachial Position Sitting Pulse 83 Pulse Source Pulse Oximeter Intake Visit Reasons: f/u Type 2 DM Intake Note: Patient present today to follow up on Type 2 Diabetes Mellitus. Patient receives DME supplies through: [employer], Pt receives Dexcom G7 sensors through [employer], requesting to be switched to pharmacy benefits. Last Diabetic Eye exam: has an upcoming appt Last Podiatry Visit: pt is requesting new referral, pt stated [employer] that she was referred to did not accept insurance. Random Glucose: 191 mg/dl HgA1C: 7.3% Recreation Aide Required: No Accompanied by: CARPENTER ROUGH Allergies No Known Allergies Allergy (Verified 12/24/23 14:04) Medication List - Last Reconciled 12/24/23 by Kingston Dean MD albuterol sulfate 90 mcg/actuation (Proventil HFA) 1 puff inhalation QID PRN alcohol swabs (Alcohol Prep Pads) 0 pad topical DIRECTED atorvastatin 20 mg PO BEDTIME blood sugar diagnostic (FreeStyle Lite Strips) USE TO TEST BLOOD SUGAR THREE TIMES DAILY cholecalciferol (vitamin D3) 50 mcg PO QAM CPAP (CPAP Machine/Device) As directed diclofenac sodium 1% 1 - 2 grams topical BID PRN flash glucose scanning reader (MaxymiserStyle Brian 2 [place]) As directed flash glucose sensor (FreeStyle Brian 2 Sensor kit) As directed change every 14 days fluticasone propion-salmeterol 250-50 mcg/dose (Advair Diskus) 1 ea inhalation gabapentin 900 mg PO BEDTIME ibuprofen 600 mg PO Q6H PRN insulin degludec (Tresiba FlexTouch U-200 insulin) 34 units (0.17 mL) subcut BEDTIME lancets (FreeStyle Lancets) Three times a data day lancets (TRUEplus Lancets) As directed levetiracetam (Keppra) 500 mg PO BID lidocaine 5% 0 patches topical lisinopril-hydrochlorothiazide 20-25 mg 2 tabs PO QAM melatonin 5 mg PO QPM nirmatrelvir-ritonavir 150-100 mg (Paxlovid) take ONE 150 mg tablet of nirmatrelvir with ONE 100 mg tablet of ritonavir twice daily for 5 days olmesartan 5 mg PO QAM pen needle, diabetic (Pentips) 1 ea miscellaneous DAILY prazosin 5 mg PO BEDTIME propranolol 40 mg PO BID psyllium husk (aspartame) 3 gram/5.8 gram (Reguloid (aspartame)) grams PO QAM semaglutide (Ozempic) 1 mg (0.75 mL) subcut QWEEK tizanidine 4 mg PO Q8H PRN HPI Comments Details: Patient is a 58 yo male with DM type 2 diagnosed over 20 years ago, who presents for continued management of diabetes. Past medical history: DM2, HTN, HLD, seizures, lap band 2007 Micro and macrovascular complications: none known Diabetes medications: metformin 1000mg twice a day , Tresiba 28 units, Ozempic 1 mg Qwkly , Jardiance 10mg. Unable to find Webroot download shows s he is using the sensor 100% of the time. Average glucose is 203 with G mi of 8.2% and standard deviation of 50. 36% range with 64 %hyperglycemia and no hypoglycemia Symptoms reported: + numbness, tingling, in lower extremities worse when sleeps Hypoglycemia: Denies Hyperglycemia: + urinary frequency , nocturia (2-3x), + polydypsia Eye exams: , last exam has appt in 2 days no retinopathy Laboratory Tests 09/14/21 19:29 Creatinine 1.69 H Estimated GFR 31 03/30/21 03/30/21 12:15 12:15 Creatinine 1.24 Estimated GFR 45 25-OH Vitamin D Total 33 TSH 3.10 PFSH 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 myelopathy Disc degeneration, lumbar Hip osteoarthritis Sacroiliitis Illiterate Morbid obesity due to excess calories Diabetes mellitus type 2, controlled, without complications Essential hypertension Hyperlipidemia LDL goal <100 Panic attacks VELASQUEZ on CPAP History of tremor Gender dysphoria Anxiety Depression Asthma Epilepsy Hypertension Surgical History History of esophagogastroduodenoscopy (EGD) Hx of laparoscopic gastric banding Family History Father CVD (cardiovascular disease) Mother Hypertension Social History Household Members: Children and None Household Members Other:: 2 dogs Are you a primary child care giver to a significant other at home: No Do you presently have visiting nurse or other home services: Yes Alcohol intake: former Patient Tobacco Use Status: Former Tobacco user Quit Date: 07/13/2020 Substance Use Type: Marijuana Physical Exam Vital Signs: Last Vital Signs Pulse 83 12/24/23 14:02 BP 110/74 12/24/23 14:02 BMI result Body Mass Index 48.1 Absence of Cushingoid features. Absence of acromegalic features. Neck exam reveals nl size thyroid about 15 gms. No thyroid nodules palpable. No carotid bruits present. Lungs CTA. Heart S1 S2, Reg R/R. No M/R/ G. Skin exam reveals absence of vitiligo or acanthosis nigricans. Abdominal exam reveals Soft NT/ND with NA BS. No organomegaly present. Neck Other: . Extrem Other: Visual exam of foot performed. No ulcerations or open lesions. R forth toe with scaly lesion No onchomycosis, no callouses.Pulses 2 + distally Sensation intact to monofilament exam. Vibratory sensation sensed is intact with 128 Hz tuning fork Results AMB Hemoglobin A1c AMB Hemoglobin A1c 7.3 % Last Edit by RIVAS Tovar on 12/24/23 14:27 Results Reviewed Results Reviewed: Laboratory Last Values Glucose (Clinic) 191 mg/dL (60-115) H 12/24/23 14:13 Assessment & Plan Assessment & Plan (1) Uncontrolled type 2 diabetes mellitus: Comment: Pt reports she is unable to read/write Code(s): E11.65 - Type 2 diabetes mellitus with hyperglycemia Category: Medical Qualifiers: Glycemic state: with hyperglycemia Qualified Code(s): E11.65 - Type 2 diabetes mellitus with hyperglycemia Plan: This is a 58-year-old female with a history of type 2 diabetes being treated with Jardiance, Trulicity and basal insulin with poor deteriorated glycemic control and known microvascular complications namely CKD. The plan is to reinitiate the Ozempic 1 mg. Will also reinitiate Jardiance 10 mg. Will recheck basic metabolic panel in 10 days If glycemic control does not improve could increase the basal insulin. Will have patient follow up with early childhood educator aide Orders: Orders Basic Metabolic Panel 10 Days E11.65 - Type 2 diabetes mellitus with hyperglycemia AMB Hemoglobin A1c Today E11.65 - Type 2 diabetes mellitus with hyperglycemia Medications: New empagliflozin (Jardiance) 10 mg PO DAILY 30 tabs 4RF Refilled semaglutide (Ozempic) 1 mg (0.75 mL) subcut QWEEK 3 mL 3RF Coding Level of Care Code Est Pt Level 4 (94265) Diagnoses Uncontrolled type 2 diabetes mellitus with hyperglycemia E11.65 Glycemic state: with hyperglycemia
[2023-12-24 14:02] VITALS: BP 110/74; PULSE 83; BMI 48.1
[2023-12-24 14:18] LABS: Glucose, Whole Blood 191 mg/dL (60-115)
== END 2023-12-24 14:28 | disposition home or self-care (01) ==
PROVIDERS: PCP Registered Nurse; Referring Provider Registered Nurse; Visit Provider Internal Medicine Endocrinology, Diabetes & Metabolism
DX: E11.65 Type 2 diabetes mellitus with hyperglycemia (principal)
CPT/HCPCS: 99214

== ENCOUNTER → 2023-12-24 13:39 | Outpatient (BNVA) | payer MEDICAID, SELFPAY | PROVIDERS: PCP Registered Nurse; Visit Provider Internal Medicine Endocrinology, Diabetes & Metabolism | DX: E11.65 Type 2 diabetes mellitus with hyperglycemia (principal); Z79.4 Long term (current) use of insulin | CPT/HCPCS: 82947; 83036; 99212 ==

== ENCOUNTER 2024-01-01 11:39 | Outpatient (AMB) | payer MEDICAID, SELFPAY ==
--- NOTE | 2024-01-01 11:48 | A.OFFVIS_ITS ---
Vital Signs 01/01/24 11:49 Height 5 ft 2 in Weight 255 lb 11.779 oz BMI 46.8 BP 100/68 Blood Pressure Location Lt radial Position Sitting Pulse 97 Intake Visit Reasons: chronic liver disease Intake Note: [place] presents in the office as a new patient regarding liver disease. CC: He feelsl valentino his pains in his bones and shaking in his body. He is not sure if this is related to the liver or not. Allergies No Known Allergies Allergy (Verified 01/01/24 11:50) HPI Comments Details: This a 58 y F->M with PMH of obesity s/p lap band x3 (Sd), T2DM, on gender affirming hormone therapy, who is here for chronic liver disease . Referral reviewed and based on elastography from last year. However report reviewed and does not actually mention the sheer wave value in the body of the report. Interpretation is made for possible CALD. Based on most recent imaging and labs no evidence of advanced fibrosis Fib 4 1.24. Getting testosterone shots - she is unsure who is monitoring the levels. Of note - that CT Abd/pel also shows slipped lap band. Pt is aware and working with Dr Beaver for ? repeat lab band vs sleeve gastrectomy. Pt also ovedue for CRC screening. Mentions getting cologuard kit in mail but unsure how to go about it due to poor health literacy. PFSH 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 myelopathy Disc degeneration, lumbar Hip osteoarthritis Sacroiliitis Illiterate Morbid obesity due to excess calories Diabetes mellitus type 2, controlled, without complications Essential hypertension Hyperlipidemia LDL goal <100 Panic attacks VELASQUEZ on CPAP History of tremor Gender dysphoria Anxiety Depression Asthma Epilepsy Hypertension Surgical History History of esophagogastroduodenoscopy (EGD) Hx of laparoscopic gastric banding Family History Father CVD (cardiovascular disease) Mother Hypertension Social History Household Members: Children and None Household Members Other:: 2 dogs Are you a primary childcare center administrator to a significant other at home: No Do you presently have visiting nurse or other home services: Yes Alcohol intake: former Patient Tobacco Use Status: Former Tobacco user Quit Date: 07/13/2020 Substance Use Type: Marijuana Review of Systems Const All systems reviewed & are unremarkable except as noted in HPI and below Physical Exam Vital Signs: Last Vital Signs Pulse 97 01/01/24 11:49 BP 100/68 01/01/24 11:49 BMI result Body Mass Index 46.8 Gen appear: NAD, obese HEENT: nonicteric Resp: no overt resp distress Neuro: fine tremors no asterixis Results Reviewed Results Reviewed: Laboratory Tests 10/27/23 12/24/23 14:37 14:26 INR 1.0 Hgb A1c (Clinic) 7.3 H Total Bilirubin 0.4 AST 26 ALT 18 Alkaline Phosphatase [address] Abd/pel 10/2023: LIVER, GALLBLADDER, BILIARY TREE: The liver is normal size, contour and density. No focal lesion or intrahepatic ductal dilatation seen. There are no radiopaque gallstones or wall thickening. PANCREAS: The pancreas is homogeneous in size and density. No focal lesion seen. The peripancreatic borders are maintained normal. SPLEEN: The spleen is unremarkable. BOWEL LOOPS: There is scattered stool, diverticula and gas seen in the colon without distention or mural thickening. The small bowel loops are normal caliber. Appendix is not included in the [id number]. The peritoneum is grossly unremarkable. There is a gastric lap band appears to have slipped and lies outside medial to the fundus and anterior to the GE junction Assessment & Plan Assessment & Plan (1) Fatty liver disease, nonalcoholic: Code(s): K76.0 - Fatty (change of) liver, not elsewhere classified Category: Medical (2) Hx of laparoscopic gastric banding: Comment: 1999 and 2013 Code(s): Z98.84 - Bariatric surgery status Category: Surgical (3) Uncontrolled type 2 diabetes mellitus: Comment: Pt reports she is unable to read/write Code(s): E11.65 - Type 2 diabetes mellitus with hyperglycemia Category: Medical Qualifiers: Glycemic state: with hyperglycemia Qualified Code(s): E11.65 - Type 2 d iabetes mellitus with hyperglycemia (4) Morbid obesity due to excess calories: Code(s): E66.01 - Morbid (severe) obesity due to excess calories Category: Medical (5) Colon cancer screening: Code(s): Z12.11 - Encounter for screening for malignant neoplasm of colon Category: Medical (6) Hormone replacement therapy: Code(s): Z79.890 - Hormone replacement therapy Category: Medical Plan # Fatty liver: normal LFTs, low Fib 4 - low likelihood of advanced fibrosis or cirrhosis at this time. Pt advised to cont to work on weight loss, diabetes and HLD control. She was also advised to review proper monitoring of gender affirming hormone replacement therapy as excessive unmonitored testosterone levels may also cause hepatotoxicity. # Slipped lap band: Pt aware and working with her bariatric surgeon for repeat lap band vs LSG procedure. # CRC screening: Pt interested in colo as opposed to stool based testing. REquests that we review prep and med instructions with her RN Ceci close to her procedure. PEG sent. She was verbally made aware of need to hold her diabetes meds including Mounjaro and Jardiance per protocol. (pt unable to read/write) Follow up after colo. Medications: New peg 3350-electrolytes 236-22.74-6.74 -5.86 gram (Golytely) as per split prep instructions, until fecal effluent is clear 240 mL PO Q10M 4,000 mL 0RF colonoscopy Coding Level of Care Code New Pt Level 4 (03928) Diagnoses Fatty liver disease, nonalcoholic K76.0 Hx of laparoscopic gastric banding Z98.84 Uncontrolled type 2 diabetes mellitus with hyperglycemia E11.65 Glycemic state: with hyperglycemia Morbid obesity due to excess calories E66.01 Colon cancer screening Z12.11 Hormone replacement therapy Z79.890
[2024-01-01 11:49] VITALS: BP 100/68; PULSE 97; BMI 46.8
== END 2024-01-01 12:51 | disposition home or self-care (01) ==
PROVIDERS: PCP Registered Nurse; Referring Provider Registered Nurse; Visit Provider Internal Medicine
DX: K76.0 Fatty (change of) liver, not elsewhere classified (principal); Z98.84 Bariatric surgery status; E11.65 Type 2 diabetes mellitus with hyperglycemia; E66.01 Morbid (severe) obesity due to excess calories; Z12.11 Encounter for screening for malignant neoplasm of colon; Z79.890 Hormone replacement therapy
CPT/HCPCS: 99204

== ENCOUNTER → 2024-01-01 11:39 | Outpatient (BNVA) | payer MEDICAID, SELFPAY | PROVIDERS: PCP Registered Nurse; Visit Provider Internal Medicine | DX: K76.0 Fatty (change of) liver, not elsewhere classified (principal); E11.65 Type 2 diabetes mellitus with hyperglycemia; E66.01 Morbid (severe) obesity due to excess calories; Z68.42 Body mass index [BMI] 45.0-49.9, adult; Z98.84 Bariatric surgery status; Z79.890 Hormone replacement therapy | CPT/HCPCS: 99202 ==

== ENCOUNTER 2024-01-14 10:58 | Emergency (ER) | payer MEDICAID, SELFPAY ==
--- NOTE | ~2024-01-14 | CT_ITS ---
EXAMINATION: CT abdomen pelvis w IV con CLINICAL INFORMATION: Reason for Exam Abdominal pain. Lap band. oral contrast COMPARISON: Prior CT 10/10/2023 TECHNIQUE: Multidetector volumetric imaging was performed from the superior aspect of the liver through the pubic symphysis 100 mL of Omnipaque 350 injected Sagittal and coronal reformatted images were obtained on the technologist's workstation. This CT examination was performed using dose optimization techniques as appropriate, variously including the following: *Automated exposure control *Adjustment of mA and/or kV according to patient size (this includes techniques or standardized protocols for targeted exams where dose is matched to indication/reason for exam; i.e. extremities or head) *Use of iterative reconstruction technique DLP: 1479 mGy-cm FINDINGS: LOWER THORAX: Included lung bases are clear. HEPATOBILIARY: No focal hepatic lesions. No biliary ductal dilatation. GALLBLADDER: Gallbladder unremarkable. SPLEEN: Spleen is normal in size. PANCREAS: No focal mass or ductal dilatation. STOMACH AND GASTROINTESTINAL TRACT: As previously described there is a lap band which is displaced situated anterior to the gastroesophageal junction. Stomach is grossly unremarkable. There is diverticulosis without evidence of acute diverticulitis. No CT evidence of appendicitis. ADRENALS: No adrenal nodules. KIDNEYS/URETERS: There is a 3 mm nonobstructing stone in the right kidney. No hydronephrosis. There is a tiny cyst lower pole right kidney 1.1 cm, the attenuation of its matrix on a noncontrast prior CT is 64, postcontrast 44 suggesting most likely hemorrhagic cyst Bosniak class II, these are commonly benign, no follow-up recommended. URINARY BLADDER: Partially decompressed. PELVIC VISCERA: Unremarkable PERITONEUM: No free air or fluid. LYMPH NODES: No lymphadenopathy. VASCULAR:Abdominal aorta normal in size, no aneurysm found. BONES, ABDOMINAL WALL AND SOFT TISSUES: Intraosseous hemangioma T10, spondylosis of the thoracolumbar spine, no pathologic fractures. CT/CT abdomen pelvis w IV con IMPRESSION: 1. No CT evidence of acute intra-abdominal process to explain patient's pain symptoms. 2. Diverticulosis without evidence of acute diverticulitis. 3. Redemonstration of LAP-BAND displaced MALPOSITION, situated anterior to the gastroesophageal junction. SURGICAL EVALUATION WARRANTED. 4. Tiny nonobstructing stone right kidney. 5. Tiny cyst lower pole right kidney 1.1 cm, the attenuation of its matrix on a noncontrast CT is 64, postcontrast 44 suggesting most likely complex hemorrhagic cyst Bosniak class II, these are commonly benign, no follow-up recommended. (Referring physician staff is being called, by physician staff assistance, to be alerted of the above critical findings and recommendations.) 01/14/2024 7:37 PM
[2024-01-14 11:09] VITALS: BP 136/90; PULSE 96; O2SAT 97
[2024-01-14 11:30] VITALS: BP 146/84; PULSE 91; RESP 19; TEMP 36.6; O2SAT 98; BMI 46.6
--- NOTE | 2024-01-14 11:42 | ED.GENADULT ---
HPI - General Adult General Chief complaint: Abdominal Pain Stated complaint: ABD PAIN X1 WEEK,NAUSEA,DIARRHEA PER EMS Time Seen by Provider: 01/14/24 17:25 Source: patient and EMS Mode of arrival: EMS Limitations: no limitations History of Present Illness HPI narrative: Patient is a 58-year-old who presents to the emergency department for evaluation of abdominal pain. Reports history of gastric lap band surgery though [place] approximately [address] Beaver, reports there is something wrong with the band mentioning that it is loose and turning the other way . Reportedly had an appointment with the surgeon 1.5 months ago for surgical correction, and still awaiting a call back to schedule. For the past 2 weeks has been experiencing constant upper abdominal pain with varying intensity, pain worsens after eating, while bending over, nausea, self-induced bilious emesis,chills without fever. Admits to having watery diarrhea every time after eating since the surgical procedure. denies urogenital symptoms. Denies associated back pain. Denies chest pain. Related Data Home Medications ?Medication ?Instructions ?Recorded ?Confirmed albuterol sulfate 90 mcg/actuation 1 puff inhalation QID PRN Wheezing 07/14/20 07/24/23 aerosol inhaler (Proventil HFA) tizanidine 4 mg tablet 4 mg PO Q8H PRN 08/01/22 07/24/23 CPAP (CPAP Machine/Device) 08/08/22 07/24/23 alcohol swabs (Alcohol Prep Pads) 0 pad topical DIRECTED 08/08/22 07/24/23 fluticasone 250 mcg-salmeterol 50 1 ea inhalation 08/08/22 07/24/23 mcg/dose blistr powdr for inhalation (Advair Diskus) gabapentin 300 mg capsule 900 mg PO BEDTIME 08/08/22 07/24/23 prazosin 5 mg capsule 5 mg PO BEDTIME 08/08/22 07/24/23 propranolol 40 mg tablet 40 mg PO BID 08/08/22 07/24/23 cholecalciferol (vitamin D3) 50 50 mcg PO QAM 12/21/22 07/24/23 mcg (2,000 unit) tablet melatonin 5 mg tablet 5 mg PO QPM 12/21/22 07/24/23 lancets 33 gauge (TRUEplus Lancets) #100 ea 04/25/23 07/24/23 lidocaine 5 % topical patch 0 patch topical 04/25/23 07/24/23 olmesartan 5 mg tablet 5 mg PO QAM 04/25/23 07/24/23 psyllium husk (aspartame) 3 g PO QAM 04/25/23 07/24/23 gram/5.8 gram oral powder (Reguloid (aspartame)) lisinopril 20 2 tab PO QAM 11/28/23 mg-hydrochlorothiazide 25 mg tablet clonazepam 1 mg tablet 1 mg PO TID 01/01/24 Previous Rx's ?Medication ?Instructions ?Recorded ibuprofen 600 mg tablet 600 mg PO Q6H PRN pain #20 tabs 03/14/21 lancets 28 gauge (FreeStyle #100 ea 12/22/21 Lancets) pen needle, diabetic 32 gauge x 1 ea miscellaneous DAILY #100 ea 05/14/22 (Pentips) flash glucose scanning reader #1 ea 12/21/22 (FreeStyle Brian 2 [place]) blood sugar diagnostic (FreeStyle #100 strips 02/26/23 Lite Strips) atorvastatin 20 mg tablet 20 mg PO BEDTIME #30 tabs 02/28/23 diclofenac sodium 1 % topical gel 1 - 2 g topical BID PRN pain 04/25/23 (scale score 1-3) #100 grams insulin degludec 200 unit/mL (3 34 unit (0.17 mL) subcut BEDTIME 04/26/23 mL) subcutaneous pen (Tresiba #9 mL FlexTouch U-200 insulin) flash glucose sensor (FreeStyle #2 ea 06/03/23 Brian 2 Sensor kit) levetiracetam 500 mg tablet 500 mg PO BID #60 tabs 08/16/23 (Keppra) empagliflozin 10 mg tablet 10 mg PO DAILY #30 tabs 12/24/23 (Jardiance) tirzepatide 7.5 mg/0.5 mL 7.5 mg (0.5 mL) subcut QWEEK #2 mL 12/25/23 subcutaneous pen injector (Lacie) peg 3350-electrolytes 236 240 ml PO Q10M colonoscopy #4,000 01/01/24 gram-22.74 gram-6.74 gram-5.86 mL gram solution (Golytely) Allergies Allergy/AdvReac Type Severity Reaction Status Date / Time No Known Allergies Allergy Verified 01/14/24 11:34 Review of Systems Review of Systems: Yes all other systems are reviewed and are negative [facility] Past Medical History Attestation statement: The following information was validated with the patient. Source: old records reviewed 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 myelopathy Disc degeneration, lumbar Hip osteoarthritis Sacroiliitis Illiterate Morbid obesity due to excess calories Diabetes mellitus type 2, controlled, without complications Essential hypertension Hyperlipidemia LDL goal <100 Panic attacks VELASQUEZ on CPAP History of tremor Gender dysphoria Anxiety Depression Asthma Epilepsy Hypertension Surgical History History of esophagogastroduodenoscopy (EGD) Hx of laparoscopic gastric banding Family History Family History Father CVD (cardiovascular disease) Mother Hypertension Social History Social History Household Members: Children and None Household Members Other:: 2 dogs Are you a primary intensive care nurse to a significant other at home: No Do you presently have visiting nurse or other home services: Yes Alcohol intake: former Patient Tobacco Use Status: Former Tobacco user Quit Date: 07/13/2020 Smoked in Last 30 Days: No Use of substances other than those prescribed or required for medical reasons: No Substance Use Type: Marijuana Advance Directives: No Advance Directives Information Provided: No Do you have a plan to hurt others: No Plan Patient : No Physical Exam ED Vital Signs: Vital Signs - 24 hr 01/14/24 11:30 01/14/24 17:56 01/14/24 21:27 Temperature 98 F 98.1 F 98.2 F Pulse Rate 91 84 87 Respiratory Rate 19 14 18 Blood Pressure 146/84 H 153/89 H 146/82 H Pulse Oximetry 98 98 98 Oxygen Delivery Method Room Air Room Air Room Air 01/14/24 22:32 Temperature 97.7 F Pulse Rate 80 Respiratory Rate 12 Blood Pressure 146/86 H Pulse Oximetry 97 Oxygen Delivery Method Room Air BMI result Body Mass Index 46.6 Appearance: Alert.?Oriented to person, place and time. No acute distress.?Normal affect. Eyes: Pupils equal, round and reactive to light.? ENT: Pharynx normal.?? Neck: Normal inspection.? Neck supple.?? CVS: Heart sounds normal. Normal heart rate and rhythm.? Pulses normal.?? Respiratory: No respiratory distress.? Lung sounds clear to auscultation bilaterally?? Abdomen: Soft with right upper quadrant and epigastric tenderness upon palpation. No CVA tenderness. Normoactive bowel sounds. Skin: Skin warm and dry.? Normal skin color.? ? Extremities: No lower extremity edema.? Neuro: Moves all extremities spontaneously. Sensation intact bilaterally. Ambulates with normal steady gait. Course Course Course Narrative: RME: Triage written by VAZQUEZ Smith. Patient presents to the ED for abdominal pain. Patient states history of lap band area done at [facility] in his due for surgery scheduled by her surgeon. Patient came to the ED because abdominal pain was unbearable. Labs EKG abdominal CT scan ordered. Medications Administered Discontinued Medications Generic Name Dose Route Start Last Admin Trade Name Chesterq PRN Reason Stop Dose Admin Al Hydroxide/Mg Hydroxide 30 ml 01/14/24 19:57 01/14/24 20:07 Magnesium Hydrox/Alum Hydrox 30 Ml Oral.Susp PO 01/14/24 19:58 30 ml ONCE ONE Administration Diatrizoate Meglum/Diatrizoate Sod 30 ml 01/14/24 16:22 01/14/24 16:23 Diatrizoate Meglumine, Sodium 30 Ml Solution PO 01/14/24 16:23 30 ml ONCE ONE Administration Famotidine 20 mg 01/14/24 19:57 01/14/24 20:07 Famotidine 20 Mg Tablet PO 01/14/24 19:58 20 mg ONCE ONE Administration Sodium Chloride 1,000 mls @ 999 mls/hr 01/14/24 20:00 01/14/24 21:15 Ns IV 01/14/24 21:00 Infused .Q1H1M YEIMI Infusion Iohexol 100 ml 01/14/24 17:48 01/14/24 17:48 Iohexol 350 Mg/Ml 100 Ml Infus..Btl IV 01/14/24 17:49 100 ml ONCE ONE Administration Lidocaine HCl 15 ml 01/14/24 19:57 01/14/24 20:07 Lidocaine Hcl Viscous 2 % 15 Ml Solution MUCOUS MEM 01/14/24 19:58 15 ml ONCE ONE Administration Medical Decision Making Medical Decision Making MDM Narrative: This is a 58-year-old female with past medical history of chronic pain syndrome, DJD, osteoarthritis, sacroiliitis, obesity, type 2 diabetes, hypertension, hyperlipidemia, VELASQUEZ, anxiety, depression, asthma, epilepsy, hypertension, gastric lap band in 1999, 2013 presenting to emergency department for evaluation of abdominal pain as per HPI. On exam has notable tenderness upon palpation to the right upper quadrant and epigastric region. Will obtain CBC to evaluate for leukocytosis/ anemia, CMP and lipase to evaluate for abnormal electrolytes /abnormal renal function/ abnormal hepatic/biliary function, CT of the abdomen and pelvis, and Urinalysis. pain at this time is mild but present, will trial GI cocktail Differential Diagnosis Differential Diagnoses: The differential diagnosis associated with the presentation includes ( obstruction, lap band failure, cholecystitis, cholelithiasis, gastritis, GERD, PUD) Admission/Observation Consideration of admission/observation: Escalation of care including admission/observation considered ( see narrative above and course narrative for further detail) Consult Healthcare Provider Management of the patient was discussed with: Team Facilitator (Bariatric surgery - 20:30) I spoke with bariatric service at [facility], VAZQUEZ Garland who consulted Dr. Lees, at this time no indication for emergent surgical intervention here at [facility] but recommends consulting [facility] bariatric service to close the loop for follow-up given CT findings and acute pain. Suggested having patient follow a liquid diet with 3 shakes daily 30 g of protein in addition to water, and avoidance of solid foods I spoke with Dr. Beaver, who advises me that he will contact the patient tomorrow morning and schedule the patient for removal of the lap band this week. At this time she is tolerating oral intake. Feel that she is stable for discharge home. Strict follow-up precautions Lab Data MDM Lab Attestation statement: I reviewed the patient's lab results. CBC is without leukocytosis anemia or thrombocytopenia. No electrolyte derangement. No JONATHAN. LFTs and lipase within normal range. HCG negative. High sensitive troponin below detectable limits. Urinalysis without evidence of infection or microscopic hematuria 01/14/24 11:56 01/14/24 11:56 Labs: Lab Results 01/14/24 Range/Units 11:56 WBC 10.0 (4.8-10.8) X10*3/uL RBC 5.70 H (4.20-5.50) X10*6/uL Hgb 14.2 (12.0-16.0) g/dl Hct 45.1 (37.0-47.0) % MCV 79.1 L (80.0-98.0) fL MCH 24.9 L (27.0-33.0) pg MCHC 31.5 (31.0-35.0) g/dl RDW 15.2 (11.0-16.0) % Plt Count 254 (160-400) X10*3/uL MPV 10.3 (9.4-12.3) fL Immature Gran % (Auto) 0.3 (0.0-0.4) % Neut % (Auto) 59.5 (45-73) % Lymph % (Auto) 25.7 (20-40) % [place] % (Auto) 7.4 (2-11) % Eos % (Auto) 6.6 H (0-4) % Baso % (Auto) 0.5 (0-2) % Lymph # (Auto) 2.6 (1.2-4.9) X10*3/uL [place] # (Auto) 0.7 (0.1-1.2) X10*3/uL Eos # (Auto) 0.7 H (0.0-0.4) X10*3/uL Baso # (Auto) 0.1 (0.0-0.2) X10*3/uL Abs Immat Gran (auto) 0.03 (0.00-0.03) X10*3/uL Absolute Neuts (auto) 5.9 (2.0-8.3) x10*3/uL Absolute Nucleated RBC 0.000 (0.0-0.012) X10*3/uL Nucleated RBC % (auto) 0.0 (0.0-0.2) /100WBC Sodium 143 (135-145) mmol/L Potassium 4.3 (3.3-5.1) mmol/L Chloride 108 (96-108) mmol/L Carbon Dioxide 24 (22-29) mmol/L Anion Gap 15 (12-20) BUN 19 H (9-16) mg/dL Creatinine 1.14 (0.5-1.4) mg/dL Estim Creat Clear Calc 63.2 Estimated GFR 49 Random Glucose 128 H (60-115) mg/dL Calcium 9.3 (8.4-10.2) mg/dL Total Bilirubin 0.5 (0.0-1.0) mg/dL Direct Bilirubin 0.2 (0.0-0.5) mg/dL AST 19 (5-31) U/L ALT 20 (0-31) U/L Alkaline Phosphatase 92 (39-117) U/L Troponin I High Sens < 2.7 (<3.5-17.0) ng/L Total Protein 7.8 (6.5-8.0) g/dL Albumin 3.9 (3.5-5.0) g/dL Lipase 46 (8-78) U/L Beta HCG, Quant < 2 mIU/mL Urine Color Yellow Urine Appearance Clear Urine pH 7.0 (5.0-9.0) Ur Specific [place] >= 1.030 H (1.005-1.025) Urine Protein Negative (Neg-Trace) mg/dL Urine Glucose (UA) >=1000 H (Negative) mg/dL Urine Ketones Negative (Negative) mg/dL Urine Blood Negative (Negative) Urine Nitrite Negative (Negative) Ur Leukocyte Esterase Negative (Negative) Urine RBC 0-2 (0-2) /HPF Urine WBC 0-5 (0-5) /HPF Ur Squamous Epith Cells 3-5 (0-2) /HPF Urine Bacteria Trace (None Seen) Hyaline Casts 0-2 (0-2) /LPF Urine Yeast Present Independent Interpretation I performed an independent interpretation of an: EKG Interpretation: Rate: 93 Rhythm:? normal sinus rhythm Warren:? normal Normal P waves.? Normal EUGENE.?? Normal QRS complex.?? ST T wave :?? no ST elevation, no ST depression, no T-wave inversion qTC:447 prior studies:? October 2023 The study has been interpreted contemporaneously by me. Radiology Impression Discussion of test interpretation with radiology: I have reviewed the radiologist's reading. Radiologist Impression: CT/CT abdomen pelvis w IV con IMPRESSION: 1. No CT evidence of acute intra-abdominal process to explain patient's pain symptoms. 2. Diverticulosis without evidence of acute diverticulitis. 3. Redemonstration of LAP-BAND displaced MALPOSITION, situated anterior to the gastroesophageal junction. SURGICAL EVALUATION WARRANTED. 4. Tiny nonobstructing stone right kidney. 5. Tiny cyst lower pole right kidney 1.1 cm, the attenuation of its matrix on a noncontrast CT is 64, postcontrast 44 suggesting most likely complex hemorrhagic cyst Bosniak class II, these are commonly benign, no follow-up recommended. External Record Review External record reviewed: Outpatient record Critical Care Time Critical Care Time Critical Care Time: Yes Total Critical Care Time: 35 Attestation: I personally attest to this critical care time spent taking care of the patient exclusive of all other billable procedures was approximately 35 minutes including initial evaluation of patient, ordering tests, EKG interpretation, medical consultation, documentation, re-evaluation. Discharge Plan Discharge Clinical Impression: Hx of laparoscopic gastric banding, Abdominal pain Patient Disposition: Home, Self-Care Additional Instructions: Dr. Beaver Was contacted directly, he is going to call you tomorrow morning and schedule you for removal of the lap band this week Follow a liquid diet this week including water, 3 shakes daily with 30 g of protein, avoid consuming solid foods Seek emergency evaluation at your discretion for new or worsening symptoms or concerns. Prescriptions: No Action pen needle, diabetic [Pentips] 32 gauge x 5/32 needle 1 ea miscellaneous DAILY Qty: 100 1RF (DME) FreeStyle Lite Strips Strip See Rx Instructions .ROUTE .COMPLEX Qty: 100 0RF Dose Instruction: USE TO TEST BLOOD SUGAR THREE TIMES DAILY Rx Instructions: USE TO TEST BLOOD SUGAR THREE TIMES DAILY atorvastatin 20 mg tablet 20 mg PO BEDTIME Qty: 30 11RF Tresiba FlexTouch U-200 200 unit/mL (3 mL) insulin pen 34 unit SUBCUT BEDTIME Qty: 9 5RF Mounjaro 7.5 mg/0.5 mL pen injector 7.5 mg subcut QWEEK Qty: 2 4RF albuterol sulfate [Proventil HFA] 90 mcg/actuation Hfa Aerosol Inhaler 1 puff INHALATION QID PRN (Reason: Wheezing) ibuprofen 600 mg tablet 600 mg PO Q6H PRN (Reason: pain) Qty: 20 0RF levetiracetam [Keppra] 500 mg tablet 500 mg PO BID Qty: 60 0RF (DME) lancets [FreeStyle Lancets] 28 gauge misc See Rx Instructions .ROUTE .MEDSUPPLY Qty: 100 11RF Rx Instructions: Three times a data day lisinopril-hydrochlorothiazide 20-25 mg tablet 2 tab PO QAM cholecalciferol (vitamin D3) 50 mcg (2,000 unit) tablet 50 mcg PO QAM melatonin 5 mg tablet 5 mg PO QPM (DME) FreeStyle Brian 2 [place] Misc See Rx Instructions .Route Qty: 1 0RF Rx Instructions: As directed (DME) lancets [TRUEplus Lancets] 33 gauge misc See Rx Instructions .ROUTE QID Qty: 100 Rx Instructions: As directed olmesartan 5 mg tablet 5 mg PO QAM Reguloid (aspartame) 3 gram/5.8 gram powder PO QAM lidocaine 5 % adhesive patch,medicated 0 patch topical diclofenac sodium 1 % gel 1 - 2 g topical BID PRN (Reason: pain (scale score 1-3)) Qty: 100 3RF Rx Instructions: to affected joints tizanidine 4 mg tablet 4 mg PO Q8H PRN (DME) CPAP Machine/Device Device See Rx Instructions .Route Rx Instructions: As directed prazosin 5 mg capsule 5 mg PO BEDTIME fluticasone propion-salmeterol [Advair Diskus] 250-50 mcg/dose blister with device 1 ea inhalation alcohol swabs [Alcohol Prep Pads] Pads, Medicated 0 pad topical DIRECTED gabapentin 300 mg capsule 900 mg PO BEDTIME propranolol 40 mg tablet 40 mg PO BID (DME) FreeStyle Brian 2 Sensor Kit See Rx Instructions .Route Qty: 2 6RF Rx Instructions: As directed change every 14 days clonazepam 1 mg tablet 1 mg PO TID peg 3350-electrolytes [Golytely] 236-22.74-6.74 -5.86 gram recon soln 240 ml PO Q10M Qty: 4000 0RF Rx Instructions: as per split prep instructions, until fecal effluent is clear Jardiance 10 mg tablet 10 mg PO DAILY Qty: 30 4RF Referrals: Chico Mullen MD [Primary Care Provider] - Interventions: ED Discharge Assessment Last Done: 01/14/24 22:32 Discharge Date/Time: 01/14/24 22:45 Print Language: Romanian
--- NOTE | 2024-01-14 11:43 | ECG_ITS ---
Test Reason : abd pain Blood Pressure : / mmHG Vent. Rate : 093 BPM Atrial Rate : 093 BPM P-R Int : 166 ms QRS Dur : 080 ms QT Int : 360 ms P-R-T Axes : 037 001 020 degrees QTc Int : 447 ms Normal sinus rhythm Normal ECG When compared with ECG of 27-OCT-2023 15:20, No significant change was found Referred By: Marquise Smith Electronically Signed By:BERONICA DALEY MD
[2024-01-14 12:03] LABS: MANUAL DIFF FLAG NO
[2024-01-14 12:05] LABS: Appearance Urine Clear; Basophils Absolute Auto 0.1 X10*3/uL (0.0-0.2); Basophils Percent Auto 0.5 % (0-2); Color Urine Yellow; Eosinophils Absolute Auto 0.7 X10*3/uL (0.0-0.4); Eosinophils Percent Auto 6.6 % (0-4); Glucose Urine UA >=1000 mg/dL (Negative); Hematocrit 45.1 % (37.0-47.0); Hemoglobin 14.2 g/dl (12.0-16.0); Imm Gran Abs Auto 0.03 X10*3/uL (0.00-0.03); Imm Gran Pct Auto 0.3 % (0.0-0.4); Leukocyte Esterase Urine Negative (Negative); Lymphocytes Absolute Auto 2.6 X10*3/uL (1.2-4.9); Lymphocytes Percent Auto 25.7 % (20-40); Mean Corpuscular HGB Conc 31.5 g/dl (31.0-35.0); Mean Corpuscular Hemoglobin 24.9 pg (27.0-33.0); Mean Corpuscular Volume 79.1 fL (80.0-98.0); Mean Platelet Volume 10.3 fL (9.4-12.3); Monocytes Absolute Auto 0.7 X10*3/uL (0.1-1.2); Monocytes Percent Auto 7.4 % (2-11); Neutrophils Absolute Auto 5.9 x10*3/uL (2.0-8.3); Neutrophils Percent Auto 59.5 % (45-73); Nitrite Urine Negative (Negative); Platelet Count 254 X10*3/uL (160-400); Red Cell Distribution Width 15.2 % (11.0-16.0); Specific Gravity - Urine >= 1.030 (1.005-1.025); UMIC TRIGGER UACC YES; Urine Blood Negative (Negative); Urine Ketones Negative (Negative); Urine Protein Negative (Neg-Trace)
[2024-01-14 12:21] LABS: Alanine Aminotransferase 20 U/L (0-31); Albumin Level 3.9 g/dL (3.5-5.0); Alkaline Phosphatase 92 U/L (39-117); Anion Gap 15 (12-20); Aspartate Amino Transferase 19 U/L (5-31); Bilirubin Direct 0.2 mg/dL (0.0-0.5); Bilirubin Total 0.5 mg/dL (0.0-1.0); Blood Urea Nitrogen 19 mg/dL (9-16); Calcium 9.3 mg/dL (8.4-10.2); Carbon Dioxide 24 mmol/L (22-29); Chloride 108 mmol/L (96-108); Creatinine Clr Calc Pharmacy 63.2; Estimated Glomerular Filt Rate 49; Glucose Random 128 mg/dL (60-115); Lipase 46 U/L (8-78); Potassium 4.3 mmol/L (3.3-5.1); Sodium 143 mmol/L (135-145); Total Protein 7.8 g/dL (6.5-8.0)
[2024-01-14 12:33] LABS: HCG Quantitative < 2 mIU/mL; Troponin-I High Sensitivity < 2.7 ng/L (<3.5-17.0)
[2024-01-14 12:36] LABS: Bacteria Urine Trace (None Seen); Hyaline Casts Urine 0-2 /LPF (0-2); RBC Urine 0-2 /HPF (0-2); WBC Urine 0-5 /HPF (0-5)
[2024-01-14] MEDS: Diatrizoate Meglumine, Sodium 30 ML SOLUTION PO (16:23)
[2024-01-14] MEDS: iohexoL 350 MG/ML 100 ML INFUS..BTL IV (17:48)
[2024-01-14 17:56] VITALS: BP 153/89; PULSE 84; RESP 14; TEMP 36.7; O2SAT 98
--- NOTE | 2024-01-14 18:06 | PC.NURSE ---
Pt brought to [facility] 7 for treatment, assumed care of pt at this time. A&Ox3 skin wnl for ethnicity, respirations even unlabored. Endorsing diffuse abd pain x 2 weeks constant in nature. Worse after eating yesterday. Pain radiating into bilateral flank, endorsing N/V/D. Denies fever/chills. IV access obtained, labs resulted, CT completed, awaiting results, pt aware of plan of care.
--- NOTE | 2024-01-14 19:42 | PC.NURSE ---
This RN assumed pt care @ 1900. Pt ca&ox4, no signs of distress. Pt sitting at the edge of the bed w/ family at bedside. Plan of care ongoing.
[2024-01-14] MEDS: 0.9 % Sodium Chloride 1,000 ML 999 ML IV (20:07)
[2024-01-14] MEDS: Famotidine 20 MG TABLET PO (20:07)
[2024-01-14] MEDS: Lidocaine HCl Viscous 2 % 15 ML SOLUTION MUCOUS MEM (20:07)
[2024-01-14] MEDS: Magnesium Hydrox/Alum Hydrox 30 ML ORAL.SUSP PO (20:07)
--- NOTE | 2024-01-14 20:13 | PC.NURSE ---
Pt ca&ox4, no signs of distress. Pt resting comfortably in bed, watching tv. Family at bedside. Pt medicated per oct. Pt confirmed NKDA. Plan of care ongoing.
[2024-01-14 21:27] VITALS: BP 146/82; PULSE 87; RESP 18; TEMP 36.8; O2SAT 98
[2024-01-14 22:32] VITALS: BP 146/86; PULSE 80; RESP 12; TEMP 36.5; O2SAT 97
== END 2024-01-14 22:45 | disposition home or self-care (01) ==
PROVIDERS: Physician Assistant; Emergency Provider Emergency Medicine; PCP Emergency Medicine
DX: R10.9 Unspecified abdominal pain (principal); Z98.84 Bariatric surgery status; E11.9 Type 2 diabetes mellitus without complications; I10 Essential (primary) hypertension; G40.909 Epilepsy, unspecified, not intractable, without status epilepticus
CPT/HCPCS: 36415; 74177; 80048; 80076; 81001; 83690; 84484; 84702; 85025; 93005; 96360; 99284; 99285; Q9967

== ENCOUNTER → 2024-01-14 11:43 | Outpatient (BNV) | payer MEDICAID, SELFPAY | PROVIDERS: Emergency Provider Emergency Medicine; PCP Emergency Medicine; Visit Provider Internal Medicine Cardiovascular Disease | DX: R10.9 Unspecified abdominal pain (principal) | CPT/HCPCS: 93010 ==

== ENCOUNTER 2024-01-22 11:08 | Emergency (ER) | payer MEDICAID, SELFPAY ==
--- NOTE | ~2024-01-22 | CT_ITS ---
EXAMINATION: CT HEAD WITHOUT CONTRAST CLINICAL INFORMATION: 58-year-old female with weakness COMPARISON: 10/27/2023 TECHNIQUE: Contiguous axial imaging was performed from the skull base to vertex without intravenous administration of contrast. This CT examination was performed using dose optimization techniques as appropriate, variously including the following: *Automated exposure control *Adjustment of mA and/or kV according to patient size (this includes techniques or standardized protocols for targeted exams where dose is matched to indication/reason for exam; i.e. extremities or head) *Use of iterative reconstruction technique DLP: 828 mGy-cm FINDINGS: No intracranial hemorrhage, large infarction, or mass lesion is seen. No extra-axial collection is appreciated. The ventricles are normal in size and configuration without evidence of hydrocephalus. The visualized paranasal sinuses and mastoid air cells are clear. CT/CT head/brain wo IV con IMPRESSION: No acute intracranial pathology.
--- NOTE | 2024-01-22 11:19 | ED.WEAKNESS ---
HPI - Weakness General Chief complaint: Dizziness Stated complaint: Impaired gait Time Seen by Provider: 01/22/24 11:18 Source: patient and EMS Mode of arrival: EMS History of Present Illness ED Provider: Dr. Moya HPI Narrative: patient with recently increased gabapentin feeling weak and dizzy. Sent in from her clinic for neuro imaging MD Complaint: generalized weakness Onset (ago): week(s) Severity: mild Related Data Home Medications ?Medication ?Instructions ?Recorded ?Confirmed albuterol sulfate 90 mcg/actuation 1 puff inhalation QID PRN Wheezing 07/14/20 07/24/23 aerosol inhaler (Proventil HFA) tizanidine 4 mg tablet 4 mg PO Q8H PRN 08/01/22 07/24/23 CPAP (CPAP Machine/Device) 08/08/22 07/24/23 alcohol swabs (Alcohol Prep Pads) 0 pad topical DIRECTED 08/08/22 07/24/23 fluticasone 250 mcg-salmeterol 50 1 ea inhalation 08/08/22 07/24/23 mcg/dose blistr powdr for inhalation (Advair Diskus) gabapentin 300 mg capsule 900 mg PO BEDTIME 08/08/22 07/24/23 prazosin 5 mg capsule 5 mg PO BEDTIME 08/08/22 07/24/23 propranolol 40 mg tablet 40 mg PO BID 08/08/22 07/24/23 cholecalciferol (vitamin D3) 50 50 mcg PO QAM 12/21/22 07/24/23 mcg (2,000 unit) tablet melatonin 5 mg tablet 5 mg PO QPM 12/21/22 07/24/23 lancets 33 gauge (TRUEplus Lancets) #100 ea 04/25/23 07/24/23 lidocaine 5 % topical patch 0 patch topical 04/25/23 07/24/23 olmesartan 5 mg tablet 5 mg PO QAM 04/25/23 07/24/23 psyllium husk (aspartame) 3 g PO QAM 04/25/23 07/24/23 gram/5.8 gram oral powder (Reguloid (aspartame)) lisinopril 20 2 tab PO QAM 11/28/23 mg-hydrochlorothiazide 25 mg tablet clonazepam 1 mg tablet 1 mg PO TID 01/01/24 Previous Rx's ?Medication ?Instructions ?Recorded ibuprofen 600 mg tablet 600 mg PO Q6H PRN pain #20 tabs 03/14/21 lancets 28 gauge (FreeStyle #100 ea 12/22/21 Lancets) pen needle, diabetic 32 gauge x 1 ea miscellaneous DAILY #100 ea 05/14/22 (Pentips) flash glucose scanning reader #1 ea 12/21/22 (FreeStyle Brian 2 [place]) blood sugar diagnostic (FreeStyle #100 strips 02/26/23 Lite Strips) atorvastatin 20 mg tablet 20 mg PO BEDTIME #30 tabs 02/28/23 diclofenac sodium 1 % topical gel 1 - 2 g topical BID PRN pain 04/25/23 (scale score 1-3) #100 grams insulin degludec 200 unit/mL (3 34 unit (0.17 mL) subcut BEDTIME 04/26/23 mL) subcutaneous pen (Tresiba #9 mL FlexTouch U-200 insulin) flash glucose sensor (FreeStyle #2 ea 06/03/23 Brian 2 Sensor kit) levetiracetam 500 mg tablet 500 mg PO BID #60 tabs 08/16/23 (Keppra) empagliflozin 10 mg tablet 10 mg PO DAILY #30 tabs 12/24/23 (Jardiance) tirzepatide 7.5 mg/0.5 mL 7.5 mg (0.5 mL) subcut QWEEK #2 mL 12/25/23 subcutaneous pen injector (Mounjaro) peg 3350-electrolytes 236 240 ml PO Q10M colonoscopy #4,000 01/01/24 gram-22.74 gram-6.74 gram-5.86 mL gram solution (Golytely) Allergies Allergy/AdvReac Type Severity Reaction Status Date / Time No Known Allergies Allergy Verified 01/22/24 11:24 Review of Systems Review of Systems: Yes all other systems are reviewed and are negative Neurologic: Denies Sensory deficit (Neuro) [facility] Past Medical History 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 myelopathy Disc degeneration, lumbar Hip osteoarthritis Sacroiliitis Illiterate Morbid obesity due to excess calories Diabetes mellitus type 2, controlled, without complications Essential hypertension Hyperlipidemia LDL goal <100 Panic attacks VELASQUEZ on CPAP History of tremor Gender dysphoria Anxiety Depression Asthma Epilepsy Hypertension Surgical History History of esophagogastroduodenoscopy (EGD) Hx of laparoscopic gastric banding Family History Family History Father CVD (cardiovascular disease) Mother Hypertension Social History Social History Household Members: Children and None Household Members Other:: 2 dogs Are you a primary day care center director to a significant other at home: No Do you presently have visiting nurse or other home services: Yes Alcohol intake: former Patient Tobacco Use Status: Former Tobacco user Quit Date: 07/13/2020 Substance Use Type: Marijuana Advance Directives: No Do you have a plan to hurt others: No Plan Physical Exam Vital Signs: Vital Signs: Last Vital Signs Temp 97.7 F 01/22/24 12:40 Pulse 82 01/22/24 12:40 Resp 16 01/22/24 14:51 BP 120/73 01/22/24 12:40 Pulse Ox 97 01/22/24 12:40 O2 Del Method Room Air 01/22/24 12:40 BMI result Body Mass Index 50.8 Const: Other: obese, flat affect Orientation/consciousness: oriented to person and patient oriented x3 Limitations: no limitations HEENT: Head: Yes normal to inspection Ears: external ears normal General nose exam: Normal external nose present Mouth: Normal oral and palatal mucosa present and oropharynx normal Throat: Yes posterior oropharynx normal Eyes: General: appearance normal, both eyes and all related structures Neck: Other: supple Neck: Yes normal visual inspection Chest: Chest palpation & inspection: normal inspection of the chest Resp: Auscultation: clear to auscultation bilaterally Cardio: Jugular venous distension: no JVD Rate: regular rate Rhythm: regular rhythm Heart sounds: S1 normal heart sound present and S2 normal heart sound present GI: Inspection: Yes normal to inspection Palpation (GI): Soft to palpation, nontender and No hepatosplenomegaly present Auscultation: normal bowel sounds : General: Yes no CVA tenderness Back/Spine/Pelvis: Back: no CVA tenderness Skin: General skin exam: no rashes or lesions noted Neuro: Other: lower extremity weakness General: oriented to person and patient oriented x3 Cranial nerves: Yes CN's II-XII intact bilaterally Sensory Exam: No Sensory deficit (Neuro) Extrem: General: Yes normal to inspection Psych: Appearance: grossly normal Course Reevaluation(s) Reevaluation #1: patient was able to walk to the bathroom will dc home, with likely medication side effect Time: 15:38 Medical Decision Making Differential Diagnosis Differential Diagnoses: The differential diagnosis associated with the presentation includes (brain tumor, hydrocephalus, CVA, vertigo, medication side effect) Admission/Observation Consideration of admission/observation: Escalation of care including admission/observation considered (upon arrival patient considered for admission) Lab Data 01/22/24 11:35 01/22/24 12:09 Labs: Lab Results 01/22/24 01/22/24 01/22/24 Range/Units 11:35 12:09 12:24 WBC 8.8 (4.8-10.8) X10*3/uL RBC 5.30 (4.20-5.50) X10*6/uL Hgb 13.4 (12.0-16.0) g/dl Hct 43.1 (37.0-47.0) % MCV 81.3 (80.0-98.0) fL MCH 25.3 L (27.0-33.0) pg MCHC 31.1 (31.0-35.0) g/dl RDW 15.3 (11.0-16.0) % Plt Count 293 (160-400) X10*3/uL MPV 10.6 (9.4-12.3) fL Immature Gran % (Auto) 0.3 (0.0-0.4) % Neut % (Auto) 56.6 (45-73) % Lymph % (Auto) 29.4 (20-40) % [place] % (Auto) 7.5 (2-11) % Eos % (Auto) 5.6 H (0-4) % Baso % (Auto) 0.6 (0-2) % Lymph # (Auto) 2.6 (1.2-4.9) X10*3/uL [place] # (Auto) 0.7 (0.1-1.2) X10*3/uL Eos # (Auto) 0.5 H (0.0-0.4) X10*3/uL Baso # (Auto) 0.1 (0.0-0.2) X10*3/uL Abs Immat Gran (auto) 0.03 (0.00-0.03) X10*3/uL Absolute Neuts (auto) 5.0 (2.0-8.3) x10*3/uL Absolute Nucleated RBC 0.000 (0.0-0.012) X10*3/uL Nucleated RBC % (auto) 0.0 (0.0-0.2) /100WBC Sodium 144 (135-145) mmol/L Potassium 4.2 (3.3-5.1) mmol/L Chloride 110 H (96-108) mmol/L Carbon Dioxide 23 (22-29) mmol/L Anion Gap 15 (12-20) BUN 15 (9-16) mg/dL Creatinine 1.12 (0.5-1.4) mg/dL Estim Creat Clear Calc 67.8 Estimated GFR 50 Random Glucose 128 H (60-115) mg/dL Calcium 9.3 (8.4-10.2) mg/dL Troponin I High Sens < 2.7 (<3.5-17.0) ng/L COVID-19 ([place]) Negative (Negative) COVID-19 Clin Com See Note Independent Interpretation I performed an independent interpretation of an: CT Scan (Head: no bleed or mass or shift) Independent Historian Clinical information obtained from an independent historian. History obtained from or confirmed by: Friend and EMS Tests considered The following testing was considered but not selected: MRI of brain considered but at this time not indicated Chronic Conditions Patient?s care impacted by: Hypertension and Other (psychiatric disease) Discharge Plan Discharge Clinical Impression: Weakness, Medication side effect Patient Disposition: Home, Self-Care Instructions: Weakness (ED) Additional Instructions: your weakness is likely due to your increase in gabapentin please discuss with your doctor Prescriptions: No Action pen needle, diabetic [Pentips] 32 gauge x needle 1 ea miscellaneous DAILY Qty: 100 1RF (DME) FreeStyle Lite Strips Strip See Rx Instructions .ROUTE .COMPLEX Qty: 100 0RF Dose Instruction: USE TO TEST BLOOD SUGAR THREE TIMES DAILY Rx Instructions: USE TO TEST BLOOD SUGAR THREE TIMES DAILY atorvastatin 20 mg tablet 20 mg PO BEDTIME Qty: 30 11RF Tresiba FlexTouch U-200 200 unit/mL (3 mL) insulin pen 34 unit SUBCUT BEDTIME Qty: 9 5RF Mounjaro 7.5 mg/0.5 mL pen injector 7.5 mg subcut QWEEK Qty: 2 4RF albuterol sulfate [Proventil HFA] 90 mcg/actuation Hfa Aerosol Inhaler 1 puff INHALATION QID PRN (Reason: Wheezing) ibuprofen 600 mg tablet 600 mg PO Q6H PRN (Reason: pain) Qty: 20 0RF levetiracetam [Keppra] 500 mg tablet 500 mg PO BID Qty: 60 0RF (DME) lancets [FreeStyle Lancets] 28 gauge misc See Rx Instructions .ROUTE .MEDSUPPLY Qty: 100 11RF Rx Instructions: Three times a data day lisinopril-hydrochlorothiazide 20-25 mg tablet 2 tab PO QAM cholecalciferol (vitamin D3) 50 mcg (2,000 unit) tablet 50 mcg PO QAM melatonin 5 mg tablet 5 mg PO QPM (DME) FreeStyle Brian 2 [place] Misc See Rx Instructions .Route Qty: 1 0RF Rx Instructions: As directed (DME) lancets [TRUEplus Lancets] 33 gauge misc See Rx Instructions .ROUTE QID Qty: 100 Rx Instructions: As directed olmesartan 5 mg tablet 5 mg PO QAM Reguloid (aspartame) 3 gram/5.8 gram powder PO QAM lidocaine 5 % adhesive patch,medicated 0 patch topical diclofenac sodium 1 % gel 1 - 2 g topical BID PRN (Reason: pain (scale score 1-3)) Qty: 100 3RF Rx Instructions: to affected joints tizanidine 4 mg tablet 4 mg PO Q8H PRN (DME) CPAP Machine/Device Device See Rx Instructions .Route Rx Instructions: As directed prazosin 5 mg capsule 5 mg PO BEDTIME fluticasone propion-salmeterol [Advair Diskus] 250-50 mcg/dose blister with device 1 ea inhalation alcohol swabs [Alcohol Prep Pads] Pads, Medicated 0 pad topical DIRECTED gabapentin 300 mg capsule 900 mg PO BEDTIME propranolol 40 mg tablet 40 mg PO BID (DME) FreeStyle Brian 2 Sensor Kit See Rx Instructions .Route Qty: 2 6RF Rx Instructions: As directed change every 14 days clonazepam 1 mg tablet 1 mg PO TID peg 3350-electrolytes [Golytely] 236-22.74-6.74 -5.86 gram recon soln 240 ml PO Q10M Qty: 4000 0RF Rx Instructions: as per split prep instructions, until fecal effluent is clear Jardiance 10 mg tablet 10 mg PO DAILY Qty: 30 4RF Referrals: [place],[facility] [Primary Care Provider] - 5 days Print Language: Cambodian
--- NOTE | 2024-01-22 11:20 | ECG_ITS ---
Test Reason : dizziness Blood Pressure : / mmHG Vent. Rate : 078 BPM Atrial Rate : 078 BPM P-R Int : 188 ms QRS Dur : 096 ms QT Int : 398 ms P-R-T Axes : 057 004 024 degrees QTc Int : 453 ms Normal sinus rhythm Normal ECG When compared with ECG of 14-JAN-2024 11:45, Nonspecific T wave abnormality now evident in Anterior leads Referred By: Eliseo Moya Electronically Signed By:BERONICA DALEY MD
[2024-01-22 11:21] VITALS: BP 118/63; BP 126/86; PULSE 80; PULSE 82; RESP 16; TEMP 36.6; O2SAT 97; BMI 50.8
[2024-01-22 11:39] LABS: MANUAL DIFF FLAG NO
[2024-01-22 11:41] LABS: Basophils Absolute Auto 0.1 X10*3/uL (0.0-0.2); Basophils Percent Auto 0.6 % (0-2); Eosinophils Absolute Auto 0.5 X10*3/uL (0.0-0.4); Eosinophils Percent Auto 5.6 % (0-4); Hematocrit 43.1 % (37.0-47.0); Hemoglobin 13.4 g/dl (12.0-16.0); Imm Gran Abs Auto 0.03 X10*3/uL (0.00-0.03); Imm Gran Pct Auto 0.3 % (0.0-0.4); Lymphocytes Absolute Auto 2.6 X10*3/uL (1.2-4.9); Lymphocytes Percent Auto 29.4 % (20-40); Mean Corpuscular HGB Conc 31.1 g/dl (31.0-35.0); Mean Corpuscular Hemoglobin 25.3 pg (27.0-33.0); Mean Corpuscular Volume 81.3 fL (80.0-98.0); Mean Platelet Volume 10.6 fL (9.4-12.3); Monocytes Absolute Auto 0.7 X10*3/uL (0.1-1.2); Monocytes Percent Auto 7.5 % (2-11); Neutrophils Percent Auto 56.6 % (45-73); Platelet Count 293 X10*3/uL (160-400); Red Cell Distribution Width 15.3 % (11.0-16.0); White Blood Count 8.8 X10*3/uL (4.8-10.8)
[2024-01-22 12:40] VITALS: BP 120/73; PULSE 82; RESP 20; TEMP 36.5; O2SAT 97
[2024-01-22 12:40] LABS: Anion Gap 15 (12-20); Blood Urea Nitrogen 15 mg/dL (9-16); Calcium 9.3 mg/dL (8.4-10.2); Carbon Dioxide 23 mmol/L (22-29); Chloride 110 mmol/L (96-108); Creatinine Clr Calc Pharmacy 67.8; Estimated Glomerular Filt Rate 50; Glucose Random 128 mg/dL (60-115); Potassium 4.2 mmol/L (3.3-5.1); Sodium 144 mmol/L (135-145)
[2024-01-22 12:43] LABS: COVID-19 Test Negative (Negative); IDNOW Serial# 08D9AD1C
[2024-01-22 12:52] LABS: Troponin-I High Sensitivity < 2.7 ng/L (<3.5-17.0)
[2024-01-22 14:51] VITALS: RESP 16
[2024-01-22 16:01] VITALS: BP 144/84; PULSE 80; RESP 16; TEMP 36.1; O2SAT 97
== END 2024-01-22 16:02 | disposition home or self-care (01) ==
PROVIDERS: Emergency Provider Emergency Medicine
DX: R42 Dizziness and giddiness (principal); R53.1 Weakness; T42.6X5A Adverse effect of other antiepileptic and sedative-hypnotic drugs, initial encounter; Y92.9 Unspecified place or not applicable; Z79.899 Other long term (current) drug therapy
CPT/HCPCS: 36415; 70450; 80048; 84484; 85025; 87635; 93005; 97161; 99284

== ENCOUNTER → 2024-01-22 11:20 | Outpatient (BNV) | payer MEDICAID, SELFPAY | PROVIDERS: Emergency Provider Emergency Medicine; Visit Provider Internal Medicine Cardiovascular Disease | DX: R42 Dizziness and giddiness (principal) | CPT/HCPCS: 93010 ==

== ENCOUNTER 2024-01-23 16:01 | Emergency (ER) | payer MEDICAID, SELFPAY ==
[2024-01-23 16:15] VITALS: BP 129/80; BP 136/80; PULSE 83; PULSE 88; RESP 18; TEMP 36.8; O2SAT 96; BMI 28.2
--- NOTE | 2024-01-23 16:19 | ECG_ITS ---
Test Reason : ABD PAIN Blood Pressure : / mmHG Vent. Rate : 077 BPM Atrial Rate : 077 BPM P-R Int : 172 ms QRS Dur : 086 ms QT Int : 400 ms P-R-T Axes : 048 -05 014 degrees QTc Int : 452 ms Normal sinus rhythm Normal ECG When compared with ECG of 22-JAN-2024 11:51, No significant change was found Referred By: Liseth Spain Electronically Signed By:Tommy Gautam
--- NOTE | 2024-01-23 16:20 | ED_ITS ---
HPI - General Adult General Chief complaint: General Medical Stated complaint: panic attack Time Seen by Provider: 01/23/24 16:10 Source: patient Mode of arrival: ambulatory Limitations: no limitations History of Present Illness ED Provider: Dr. Liseth Spain HPI narrative: Patient comes to the emergency room by ambulance from [facility]. Patient has multiple complaints. Primarily, patient had a panic attack and was sent to the ED for further evaluation. Of note, patient was seen here yesterday, complaining of weakness and dizziness secondary to gabapentin side effect. Related Data Home Medications ?Medication ?Instructions ?Recorded ?Confirmed albuterol sulfate 90 mcg/actuation 1 puff inhalation QID PRN Wheezing 07/14/20 07/24/23 aerosol inhaler (Proventil HFA) tizanidine 4 mg tablet 4 mg PO Q8H PRN 08/01/22 07/24/23 CPAP (CPAP Machine/Device) 08/08/22 07/24/23 alcohol swabs (Alcohol Prep Pads) 0 pad topical DIRECTED 08/08/22 07/24/23 fluticasone 250 mcg-salmeterol 50 1 ea inhalation 08/08/22 07/24/23 mcg/dose blistr powdr for inhalation (Advair Diskus) gabapentin 300 mg capsule 900 mg PO BEDTIME 08/08/22 07/24/23 prazosin 5 mg capsule 5 mg PO BEDTIME 08/08/22 07/24/23 propranolol 40 mg tablet 40 mg PO BID 08/08/22 07/24/23 cholecalciferol (vitamin D3) 50 50 mcg PO QAM 12/21/22 07/24/23 mcg (2,000 unit) tablet melatonin 5 mg tablet 5 mg PO QPM 12/21/22 07/24/23 lancets 33 gauge (TRUEplus Lancets) #100 ea 04/25/23 07/24/23 lidocaine 5 % topical patch 0 patch topical 04/25/23 07/24/23 olmesartan 5 mg tablet 5 mg PO QAM 04/25/23 07/24/23 psyllium husk (aspartame) 3 g PO QAM 04/25/23 07/24/23 gram/5.8 gram oral powder (Reguloid (aspartame)) lisinopril 20 2 tab PO QAM 11/28/23 mg-hydrochlorothiazide 25 mg tablet clonazepam 1 mg tablet 1 mg PO TID 01/01/24 Previous Rx's ?Medication ?Instructions ?Recorded ibuprofen 600 mg tablet 600 mg PO Q6H PRN pain #20 tabs 03/14/21 lancets 28 gauge (FreeStyle #100 ea 12/22/21 Lancets) pen needle, diabetic 32 gauge x 1 ea miscellaneous DAILY #100 ea 05/14/22 5/32 (Pentips) flash glucose scanning reader #1 ea 12/21/22 (FreeStyle Brian 2 [place]) blood sugar diagnostic (FreeStyle #100 strips 02/26/23 Lite Strips) atorvastatin 20 mg tablet 20 mg PO BEDTIME #30 tabs 02/28/23 diclofenac sodium 1 % topical gel 1 - 2 g topical BID PRN pain 04/25/23 (scale score 1-3) #100 grams insulin degludec 200 unit/mL (3 34 unit (0.17 mL) subcut BEDTIME 04/26/23 mL) subcutaneous pen (Tresiba #9 mL FlexTouch U-200 insulin) flash glucose sensor (FreeStyle #2 ea 06/03/23 Brian 2 Sensor kit) levetiracetam 500 mg tablet 500 mg PO BID #60 tabs 08/16/23 (Keppra) empagliflozin 10 mg tablet 10 mg PO DAILY #30 tabs 12/24/23 (Jardiance) tirzepatide 7.5 mg/0.5 mL 7.5 mg (0.5 mL) subcut QWEEK #2 mL 12/25/23 subcutaneous pen injector (Lacie) peg 3350-electrolytes 236 240 ml PO Q10M colonoscopy #4,000 01/01/24 gram-22.74 gram-6.74 gram-5.86 mL gram solution (Golytely) Allergies Allergy/AdvReac Type Severity Reaction Status Date / Time No Known Allergies Allergy Verified 01/23/24 16:17 Review of Systems 2 Review of Systems: Constitutional : No Weight loss, No Fever, No Chills, No Night Sweats, No Fatigue, No Malaise ENT/Mouth : No Hearing loss, No Ear Pain, No Nasal Congestion, No Sinus Pain, No Hoarseness, No sore throat, No Rhinorrhea, No Swallowing Difficulty Eyes: No Eye Pain, No Swelling, No Redness, No Foreign Body, No Discharge, No Vision Changes Cardiovascular : No Chest Pain, No SOB, No Dyspnea on Exertion, No Orthopnea, No Edema, No Palpitations Respiratory : No Cough, No Sputum, No Wheezing, No Smoke Exposure, No Dyspnea Gastrointestinal : No Nausea, No Vomiting, No Diarrhea, No Constipation, No abdominal Pain, No Hematochezia, No Melena Genitourinary : no irregular bleeding, No Dysuria, No Urinary Frequency, No Hematuria, No Urinary Incontinence, No Urgency, No Flank Pain, No Urinary Flow Changes, No Hesitancy Musculoskeletal : No joint pain, No Myalgias, No Joint Swelling Skin : No Skin Lesions, No rash Neuro : No Weakness, No Numbness, No Paresthesias, No Loss of Consciousness, No Dizziness, No Headache Psych : Complaining of anxiety, panic attack, no SI or HI Heme/Lymph: No Bruising, No Bleeding,No Lymphadenopathy Endocrine : No Polyuria, No Polydipsia, No Temperature Intolerance PMFSH Past Medical History 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 myelopathy Disc degeneration, lumbar Hip osteoarthritis Sacroiliitis Illiterate Morbid obesity due to excess calories Diabetes mellitus type 2, controlled, without complications Essential hypertension Hyperlipidemia LDL goal <100 Panic attacks VELASQUEZ on CPAP History of tremor Gender dysphoria Anxiety Depression Asthma Epilepsy Hypertension Surgical History History of esophagogastroduodenoscopy (EGD) Hx of laparoscopic gastric banding Family History Family History Father CVD (cardiovascular disease) Mother Hypertension Social History Social History Household Members: Children and None Household Members Other:: 2 dogs Are you a primary aged or disabled care worker to a significant other at home: No Do you presently have visiting nurse or other home services: Yes Alcohol intake: former Patient Tobacco Use Status: Former Tobacco user Quit Date: 07/13/2020 Smoked in Last 30 Days: No Use of substances other than those prescribed or required for medical reasons: No Substance Use Type: Marijuana Advance Directives: No Advance Directives Information Provided: No Physical Exam ED Vital Signs: Vital Signs - 24 hr 01/23/24 16:15 01/23/24 18:10 Temperature 98.2 F 97.6 F Pulse Rate 88 74 Respiratory Rate 18 16 Blood Pressure 129/80 145/74 H Pulse Oximetry 96 98 Oxygen Delivery Method Room Air Room Air BMI result Body Mass Index 28.2 Const Other: Appearance: Alert. Oriented X3. No acute distress. Eyes: Pupils equal, round and reactive to light. ENT: Pharynx normal. Neck: Normal inspection. Neck supple. No lymph nodes noted. No crepitus CVS: Normal heart rate and rhythm. Pulses normal. Normal S1 and S2 Respiratory: No respiratory distress. Breath sounds normal. No Wheezing. No rales Abdomen: Soft and nontender. No rigidity. No distention. Skin: Skin warm and dry. Normal skin color. Normal skin turgor. Extremities: No lower extremity edema. No Lacerations. No Rash Neuro: Oriented X 3. No motor deficit. No sensory deficit. Moving all extremities. No slurred speech. CN 2 through 12 grossly intact Psych: calm, cooperative, normal affect Medical Decision Making Medical Decision Making [facility] Narrative: My interpretation of labs: Hematology and chemistry within normal limits, urinalysis negative for UTI -my interpretation of EKG: Normal sinus rhythm, heart rate 77, no ST segment depression or elevation, nonspecific T-wave inversion in lead 3, QTC 452 -patient ambulatory with no assistance. -patient states that he feels much better to be discharged, denies SI or HI Differential Diagnosis Differential Diagnoses: The differential diagnosis associated with the presentation includes Lab Data [facility] Lab Attestation statement: I reviewed the patient's lab results. 01/23/24 16:41 01/23/24 16:41 Labs: Lab Results 01/23/24 01/23/24 Range/Units 16:41 18:47 WBC 9.6 (4.8-10.8) X10*3/uL RBC 5.63 H (4.20-5.50) X10*6/uL Hgb 14.0 (12.0-16.0) g/dl Hct 45.6 (37.0-47.0) % MCV 81.0 (80.0-98.0) fL MCH 24.9 L (27.0-33.0) pg MCHC 30.7 L (31.0-35.0) g/dl RDW 15.4 (11.0-16.0) % Plt Count 279 (160-400) X10*3/uL MPV 10.2 (9.4-12.3) fL Immature Gran % (Auto) 0.3 (0.0-0.4) % Neut % (Auto) 56.0 (45-73) % Lymph % (Auto) 32.2 (20-40) % [facility] % (Auto) 5.6 (2-11) % Eos % (Auto) 5.4 H (0-4) % Baso % (Auto) 0.5 (0-2) % Lymph # (Auto) 3.1 (1.2-4.9) X10*3/uL [facility] [place] [facility] # (Auto) 0.5 (0.1-1.2) X10*3/uL Eos # (Auto) 0.5 H (0.0-0.4) X10*3/uL Baso # (Auto) 0.1 (0.0-0.2) X10*3/uL Abs Immat Gran (auto) 0.03 (0.00-0.03) X10*3/uL Absolute Neuts (auto) 5.4 (2.0-8.3) x10*3/uL Absolute Nucleated RBC 0.000 (0.0-0.012) X10*3/uL Nucleated RBC % (auto) 0.0 (0.0-0.2) /100WBC Sodium 145 (135-145) mmol/L Potassium 4.1 (3.3-5.1) mmol/L Chloride 110 H (96-108) mmol/L Carbon Dioxide 25 (22-29) mmol/L Anion Gap 14 (12-20) BUN 11 (9-16) mg/dL Creatinine 1.02 (0.5-1.4) mg/dL Estim Creat Clear Calc 53.7 Estimated GFR 55 Random Glucose 101 (60-115) mg/dL Calcium 9.4 (8.4-10.2) mg/dL Magnesium 2.0 (1.6-2.6) mg/dL Total Bilirubin 0.3 (0.0-1.0) mg/dL Direct Bilirubin 0.1 (0.0-0.5) mg/dL AST 17 (5-31) U/L ALT 19 (0-31) U/L Alkaline Phosphatase 93 (39-117) U/L Troponin I High Sens < 2.7 (<3.5-17.0) ng/L Total Protein 7.5 (6.5-8.0) g/dL Albumin 3.9 (3.5-5.0) g/dL Urine Color Yellow Urine Appearance Clear Urine pH 5.5 (5.0-9.0) Ur Specific [place] 1.025 (1.005-1.025) Urine Protein Negative (Neg-Trace) mg/dL Urine Glucose (UA) >=1000 H (Negative) mg/dL Urine Ketones Negative (Negative) mg/dL Urine Blood Negative (Negative) Urine Nitrite Negative (Negative) Ur Leukocyte Esterase Negative (Negative) Ethyl Alcohol < 10 mg/dL Discharge Plan Discharge Clinical Impression: Anxiety Patient Disposition: Home, Self-Care Instructions: Anxiety (ED) Additional Instructions: Please follow-up with your primary care physician tomorrow. If you have any worsening or new symptoms, please return to the emergency room or call 911 Prescriptions: No Action pen needle, diabetic [Pentips] 32 gauge x / needle 1 ea miscellaneous DAILY Qty: 100 1RF (DME) FreeStyle Lite Strips Strip See Rx Instructions .ROUTE .COMPLEX Qty: 100 0RF Dose Instruction: USE TO TEST BLOOD SUGAR THREE TIMES DAILY Rx Instructions: USE TO TEST BLOOD SUGAR THREE TIMES DAILY atorvastatin 20 mg tablet 20 mg PO BEDTIME Qty: 30 11RF Tresiba FlexTouch U-200 200 unit/mL (3 mL) insulin pen 34 unit SUBCUT BEDTIME Qty: 9 5RF Mounjaro 7.5 mg/0.5 mL pen injector 7.5 mg subcut QWEEK Qty: 2 4RF albuterol sulfate [Proventil HFA] 90 mcg/actuation Hfa Aerosol Inhaler 1 puff INHALATION QID PRN (Reason: Wheezing) ibuprofen 600 mg tablet 600 mg PO Q6H PRN (Reason: pain) Qty: 20 0RF levetiracetam [Keppra] 500 mg tablet 500 mg PO BID Qty: 60 0RF (DME) lancets [FreeStyle Lancets] 28 gauge misc See Rx Instructions .ROUTE .MEDSUPPLY Qty: 100 11RF Rx Instructions: Three times a data day lisinopril-hydrochlorothiazide 20-25 mg tablet 2 tab PO QAM cholecalciferol (vitamin D3) 50 mcg (2,000 unit) tablet 50 mcg PO QAM melatonin 5 mg tablet 5 mg PO QPM (DME) FreeStyle Brian 2 [place] Misc See Rx Instructions .Route Qty: 1 0RF Rx Instructions: As directed (DME) lancets [TRUEplus Lancets] 33 gauge misc See Rx Instructions .ROUTE QID Qty: 100 Rx Instructions: As directed olmesartan 5 mg tablet 5 mg PO QAM Reguloid (aspartame) 3 gram/5.8 gram powder PO QAM lidocaine 5 % adhesive patch,medicated 0 patch topical diclofenac sodium 1 % gel 1 - 2 g topical BID PRN (Reason: pain (scale score 1-3)) Qty: 100 3RF Rx Instructions: to affected joints tizanidine 4 mg tablet 4 mg PO Q8H PRN (DME) CPAP Machine/Device Device See Rx Instructions .Route Rx Instructions: As directed prazosin 5 mg capsule 5 mg PO BEDTIME fluticasone propion-salmeterol [Advair Diskus] 250-50 mcg/dose blister with device 1 ea inhalation alcohol swabs [Alcohol Prep Pads] Pads, Medicated 0 pad topical DIRECTED gabapentin 300 mg capsule 900 mg PO BEDTIME propranolol 40 mg tablet 40 mg PO BID (DME) FreeStyle Brian 2 Sensor Kit See Rx Instructions .Route Qty: 2 6RF Rx Instructions: As directed change every 14 days clonazepam 1 mg tablet 1 mg PO TID peg 3350-electrolytes [Golytely] 236-22.74-6.74 -5.86 gram recon soln 240 ml PO Q10M Qty: 4000 0RF Rx Instructions: as per split prep instructions, until fecal effluent is clear Jardiance 10 mg tablet 10 mg PO DAILY Qty: 30 4RF Print Language: Kyrgyz
[2024-01-23 16:44] LABS: MANUAL DIFF FLAG NO
[2024-01-23 16:51] LABS: Basophils Absolute Auto 0.1 X10*3/uL (0.0-0.2); Basophils Percent Auto 0.5 % (0-2); Eosinophils Absolute Auto 0.5 X10*3/uL (0.0-0.4); Eosinophils Percent Auto 5.4 % (0-4); Hematocrit 45.6 % (37.0-47.0); Imm Gran Abs Auto 0.03 X10*3/uL (0.00-0.03); Imm Gran Pct Auto 0.3 % (0.0-0.4); Lymphocytes Absolute Auto 3.1 X10*3/uL (1.2-4.9); Lymphocytes Percent Auto 32.2 % (20-40); Mean Corpuscular HGB Conc 30.7 g/dl (31.0-35.0); Mean Corpuscular Hemoglobin 24.9 pg (27.0-33.0); Mean Platelet Volume 10.2 fL (9.4-12.3); Monocytes Absolute Auto 0.5 X10*3/uL (0.1-1.2); Monocytes Percent Auto 5.6 % (2-11); Neutrophils Absolute Auto 5.4 x10*3/uL (2.0-8.3); Platelet Count 279 X10*3/uL (160-400); Red Blood Count 5.63 X10*6/uL (4.20-5.50); Red Cell Distribution Width 15.4 % (11.0-16.0); White Blood Count 9.6 X10*3/uL (4.8-10.8)
[2024-01-23 17:04] LABS: Alanine Aminotransferase 19 U/L (0-31); Albumin Level 3.9 g/dL (3.5-5.0); Alkaline Phosphatase 93 U/L (39-117); Anion Gap 14 (12-20); Aspartate Amino Transferase 17 U/L (5-31); Bilirubin Direct 0.1 mg/dL (0.0-0.5); Bilirubin Total 0.3 mg/dL (0.0-1.0); Blood Urea Nitrogen 11 mg/dL (9-16); Calcium 9.4 mg/dL (8.4-10.2); Carbon Dioxide 25 mmol/L (22-29); Chloride 110 mmol/L (96-108); Creatinine Clr Calc Pharmacy 53.7; Estimated Glomerular Filt Rate 55; Ethanol < 10 mg/dL; Glucose Random 101 mg/dL (60-115); Potassium 4.1 mmol/L (3.3-5.1); Sodium 145 mmol/L (135-145); Total Protein 7.5 g/dL (6.5-8.0)
[2024-01-23 17:13] LABS: Troponin-I High Sensitivity < 2.7 ng/L (<3.5-17.0)
[2024-01-23 18:10] VITALS: BP 145/74; PULSE 74; RESP 16; TEMP 36.4; O2SAT 98
[2024-01-23 18:55] LABS: Appearance Urine Clear; Color Urine Yellow; Glucose Urine UA >=1000 mg/dL (Negative); Leukocyte Esterase Urine Negative (Negative); Nitrite Urine Negative (Negative); PH 5.5 (5.0-9.0); Specific Gravity - Urine 1.025 (1.005-1.025); UMIC TRIGGER UACC YES; Urine Blood Negative (Negative); Urine Ketones Negative (Negative); Urine Protein Negative (Neg-Trace)
[2024-01-23 19:05] LABS: Amphetamine Screen Urine Not Detected (Not Detect); Barbiturates, Urine Not Detected (Not Detect); Benzodiazepines Screen Urine Not Detected (Not Detect); Buprenorphine Scr Not Detected (Not Detect); Cannabinoid Screen Urine Not Detected (Not Detect); Cocaine Screen Urine Not Detected (Not Detect); Fentanyl, urine Not Detected (Not Detect); Methadone Screen, Urine Not Detected (Not Detect); Opiate Screen Urine Not Detected (Not Detect); Oxycodone Screen Urine Not Detected (Not Detect); Phencyclidine Screen Urine Not Detected (Not Detect)
[2024-01-23 19:43] VITALS: BP 154/79; PULSE 78; RESP 16; TEMP 36.8; O2SAT 97
[2024-01-23 20:24] LABS: Bacteria Urine None Seen (None Seen); Hyaline Casts Urine 0-2 /LPF (0-2); RBC Urine 0-2 /HPF (0-2); Squamous Epithelial Cell Urine 0-2 /HPF (0-2); WBC Urine 0-5 /HPF (0-5)
== END 2024-01-23 19:44 | disposition home or self-care (01) ==
PROVIDERS: Emergency Provider Emergency Medicine; PCP Registered Nurse
DX: F41.9 Anxiety disorder, unspecified (principal); F41.0 Panic disorder [episodic paroxysmal anxiety]; I10 Essential (primary) hypertension; G40.909 Epilepsy, unspecified, not intractable, without status epilepticus; E11.9 Type 2 diabetes mellitus without complications; Z79.899 Other long term (current) drug therapy
CPT/HCPCS: 36415; 80048; 80076; 80307; 81001; 83735; 84484; 85025; 93005; 99283; 99284

== ENCOUNTER → 2024-01-23 16:19 | Outpatient (BNV) | payer MEDICAID, SELFPAY | PROVIDERS: Emergency Provider Emergency Medicine; PCP Registered Nurse; Visit Provider Internal Medicine Cardiovascular Disease | DX: R10.9 Unspecified abdominal pain (principal) | CPT/HCPCS: 93010 ==

== ENCOUNTER → 2024-03-23 21:10 | Outpatient (BNV) | payer MEDICAID, SELFPAY | PROVIDERS: Visit Provider Psychiatry & Neurology Neurology | DX: G47.33 Obstructive sleep apnea (adult) (pediatric) (principal) | CPT/HCPCS: 95810 ==

== ENCOUNTER → 2024-03-23 21:30 | Outpatient (REF) | payer MEDICAID, SELFPAY | LOC: HO.SL 21:30 | PROVIDERS: Visit Provider Nurse Practitioner Family | DX: G47.33 Obstructive sleep apnea (adult) (pediatric) (principal) | CPT/HCPCS: 95810 ==

== ENCOUNTER 2024-03-24 09:51 | Emergency (ER) | payer MEDICAID, SELFPAY ==
--- NOTE | ~2024-03-24 | CT_ITS ---
EXAMINATION: CT CERVICAL SPINE WITHOUT CONTRAST CLINICAL INFORMATION: Fall. Pain COMPARISON: None available. TECHNIQUE: Thin section axial imaging with sagittal coronal reformats. This CT examination was performed using dose optimization techniques as appropriate, variously including the following: *Automated exposure control *Adjustment of mA and/or kV according to patient size (this includes techniques or standardized protocols for targeted exams where dose is matched to indication/reason for exam; i.e. extremities or head) *Use of iterative reconstruction technique DLP: 695 mGy-cm FINDINGS: There is anterior spondylitic change observed throughout the C-spine but no fracture or destructive process, alignment abnormality or mass effect on the spinal canal. Prevertebral soft tissues are normal. CT/CT cervical spine wo IV con IMPRESSION: Degenerative change. No acute findings. Fleischner guidelines were followed.
--- NOTE | ~2024-03-24 | CT_ITS ---
EXAMINATION: CT HEAD WITHOUT CONTRAST CLINICAL INFORMATION: Fall with head strike COMPARISON: 01/22/2024 TECHNIQUE: Contiguous axial imaging was performed from the skull base to vertex without intravenous administration of contrast. This CT examination was performed using dose optimization techniques as appropriate, variously including the following: *Automated exposure control *Adjustment of mA and/or kV according to patient size (this includes techniques or standardized protocols for targeted exams where dose is matched to indication/reason for exam; i.e. extremities or head) *Use of iterative reconstruction technique DLP: 746 mGy-cm FINDINGS: No intra or extra-axial fluid collection or hemorrhage, mass, or mass effect. Calvarium intact. CT/CT head/brain wo IV con IMPRESSION: No acute intracranial pathology.
--- NOTE | ~2024-03-24 | XR_ITS ---
EXAMINATION: XR THORACOLUMBAR SPINE CLINICAL INFORMATION: Pain after falling COMPARISON: None available. TECHNIQUE: 2 views FINDINGS: There is spondylitic change throughout the mid to lower lumbar spine but I do not see evidence of an acute fracture. Paraspinal soft tissues are normal. Minor areas of anterior wedging in the lower thoracic spine appear chronic. XR/XR thoracic spine 2V IMPRESSION: Multilevel degenerative change. No acute findings.
--- NOTE | ~2024-03-24 | XR_ITS ---
EXAMINATION: XR LUMBOSACRAL SPINE CLINICAL INFORMATION: Patient fell onto the back COMPARISON: None available. TECHNIQUE: Three views of the lumbosacral spine. FINDINGS: There is advanced degenerative change L3-S1 with spondylitic change observed but no acute fracture. Alignment is preserved in the lumbar spine. Spondylitic change with minor anterior compression observed T11 and T10 likely chronic. XR/XR lumbar spine 2-3V IMPRESSION: Multilevel degenerative change. No acute findings.
[2024-03-24 10:00] VITALS: BP 115/65; PULSE 70; RESP 20; TEMP 36.1; O2SAT 98; BMI 43.4
[2024-03-24] MEDS: Ketorolac Tromethamine 30 MG/ML VIAL IM (11:07)
[2024-03-24] MEDS: Cyclobenzaprine HCl 5 MG TABLET PO (11:08)
[2024-03-24] MEDS: Lidocaine 4 % Patch ADH..PATCH 1 PATCH TRANSDERMA (11:08)
--- NOTE | 2024-03-24 11:22 | PC.NURSE ---
pt medicated per MAR- pt to have CT/XR- warm blanket given, [employer] at bedside
--- NOTE | 2024-03-24 11:45 | ED.FALL ---
HPI - Fall General Chief Complaint: Fall Stated Complaint: Fall 03/20/24 Time Seen by Provider: 03/24/24 10:09 Source: patient, RN notes reviewed and old records reviewed Mode of arrival: ambulatory Limitations: no limitations History of Present Illness ED Provider: DHAVAL AVILES PA-C HPI Narrative: 58 year old assigned female at with pmhx significant for hepatic steatosis, VELASQUEZ, chronic pain syndrome, OA, T2DM, HTN, morbid obesity s/p gastric bypass present to the ED today for evaluation of left sided back pain s/p mechanical fall occurring 5 days ago. Patient reports that her shower chair gave out out causing her to fall approximately 1 ft to the bottom of the shower onto her left side. Admits to posterior head strike without LOC. Not on AC. Since this time, reports left-sided low-mid back pain worse with movement. Denies radiation of pain. Patient has been taking Advil at home with minimal relief. Denies hx of IVDU. Denies previous spinal surgeries. Denies bowel/bladder incontinence or retention, saddle anesthesia, numbness/tingling/weakness of the LEs, dysuria, hematuria. Related Data Home Medications ?Medication ?Instructions ?Recorded ?Confirmed albuterol sulfate 90 mcg/actuation 1 puff inhalation QID PRN Wheezing 07/14/20 07/24/23 aerosol inhaler (Proventil HFA) tizanidine 4 mg tablet 4 mg PO Q8H PRN 08/01/22 07/24/23 CPAP (CPAP Machine/Device) 08/08/22 07/24/23 alcohol swabs (Alcohol Prep Pads) 0 pad topical DIRECTED 08/08/22 07/24/23 fluticasone 250 mcg-salmeterol 50 1 ea inhalation 08/08/22 07/24/23 mcg/dose blistr powdr for inhalation (Advair Diskus) gabapentin 300 mg capsule 900 mg PO BEDTIME 08/08/22 07/24/23 prazosin 5 mg capsule 5 mg PO BEDTIME 08/08/22 07/24/23 propranolol 40 mg tablet 40 mg PO BID 08/08/22 07/24/23 cholecalciferol (vitamin D3) 50 50 mcg PO QAM 12/21/22 07/24/23 mcg (2,000 unit) tablet melatonin 5 mg tablet 5 mg PO QPM 12/21/22 07/24/23 lancets 33 gauge (TRUEplus Lancets) #100 ea 04/25/23 07/24/23 lidocaine 5 % topical patch 0 patch topical 04/25/23 07/24/23 olmesartan 5 mg tablet 5 mg PO QAM 04/25/23 07/24/23 psyllium husk (aspartame) 3 g PO QAM 04/25/23 07/24/23 gram/5.8 gram oral powder (Reguloid (aspartame)) lisinopril 20 2 tab PO QAM 11/28/23 mg-hydrochlorothiazide 25 mg tablet clonazepam 1 mg tablet 1 mg PO TID 01/01/24 Previous Rx's ?Medication ?Instructions ?Recorded ibuprofen 600 mg tablet 600 mg PO Q6H PRN pain #20 tabs 03/14/21 lancets 28 gauge (FreeStyle #100 ea 12/22/21 Lancets) pen needle, diabetic 32 gauge x 1 ea miscellaneous DAILY #100 ea 05/14/22 (Pentips) flash glucose scanning reader #1 ea 12/21/22 (FreeStyle Brian 2 Victor) blood sugar diagnostic (FreeStyle #100 strips 02/26/23 Lite Strips) atorvastatin 20 mg tablet 20 mg PO BEDTIME #30 tabs 02/28/23 diclofenac sodium 1 % topical gel 1 - 2 g topical BID PRN pain 04/25/23 (scale score 1-3) #100 grams insulin degludec 200 unit/mL (3 34 unit (0.17 mL) subcut BEDTIME 04/26/23 mL) subcutaneous pen (Tresiba #9 mL FlexTouch U-200 insulin) flash glucose sensor (FreeStyle #2 ea 06/03/23 Brian 2 Sensor kit) levetiracetam 500 mg tablet 500 mg PO BID #60 tabs 08/16/23 (Keppra) empagliflozin 10 mg tablet 10 mg PO DAILY #30 tabs 12/24/23 (Jardiance) tirzepatide 7.5 mg/0.5 mL 7.5 mg (0.5 mL) subcut QWEEK #2 mL 12/25/23 subcutaneous pen injector (Lacie) peg 3350-electrolytes 236 240 ml PO Q10M colonoscopy #4,000 05/01/24 gram-22.74 gram-6.74 gram-5.86 mL gram solution (Golytely) lidocaine 5 % topical patch 1 patch topical DAILY #15 ea 03/24/24 (Lidoderm) naproxen 250 mg tablet 250 mg PO BID PRN pain (scale 03/24/24 score 1-3) #20 tabs Allergies Allergy/AdvReac Type Severity Reaction Status Date / Time mushroom Allergy Anaphylaxis Verified 03/24/24 10:06 Review of Systems Review of Systems: Constitutional: No fever, chills, fatigue, night sweats, weight changes ENT/Mouth: No ear pain, hearing loss, nasal congestion, sinus pain, rhinorrhea, sore throat Eyes: No eye pain, swelling, redness, vision changes, discharge Cardio: No chest pain, palpitations, DONNELLY, orthopnea, peripheral edema Pulm: No SOB, cough, sputum, wheezing, dyspnea, hemoptysis GI: No nausea, vomiting, hematemesis, abdominal pain, diarrhea, constipation, hematochezia, melena : No irregular bleeding, dysuria, frequency, urgency, hesitancy, hematuria, flank pain, urinary flow changes, urinary incontinence or retention MSK: +back pain, No neck pain, joint pain, myalgias Skin: No lesions, rashes Neuro: No weakness, numbness, paresthesias, LOC, dizziness, headache All other systems reviewed and are negative. [facility] Past Medical History Attestation statement: The following information was validated with the patient. 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 Disc degeneration, lumbar Hip osteoarthritis Sacroiliitis Illiterate Morbid obesity due to excess calories Diabetes mellitus type 2, controlled, without complications Essential hypertension Hyperlipidemia LDL goal <100 Panic attacks VELASQUEZ on CPAP History of tremor Gender dysphoria Anxiety Depression Asthma Epilepsy Hypertension Surgical History History of esophagogastroduodenoscopy (EGD) Hx of laparoscopic gastric banding Family History Family History Father CVD (cardiovascular disease) Mother Hypertension Social History Social History Household Members: Children and None Household Members Other:: 2 dogs Are you a primary critical care specialist to a significant other at home: No Do you presently have visiting nurse or other home services: Yes Alcohol intake: former Patient Tobacco Use Status: Former Tobacco user Substance Use Type: Marijuana Advance Directives: No Do you have a plan to hurt others: No Plan Physical Exam Vital Signs: Vital Signs: Last Vital Signs Temp 96.9 F 03/24/24 12:57 Pulse 70 03/24/24 12:57 Resp 20 03/24/24 12:57 BP 115/65 03/24/24 12:57 Pulse Ox 98 03/24/24 12:57 O2 Del Method Room Air 03/24/24 12:57 BMI result Body Mass Index 43.4 Vital signs stable, afebrile Const: General: cooperative, healthy appearing, comfortable and no acute distress Orientation/consciousness: patient oriented x3 HEENT: Head: Yes normal to inspection, Yes No palpable skull fracture present, Yes normocephalic, Yes atraumatic, No Negrete's sign, No raccoon eyes and No periorbital ecchymosis Eyes: General: appearance normal, both eyes and all related structures Pupils: Equal, round and reactive pupils present EOM: EOMs intact bilaterally Neck: Other: + no cervical midline spinous tenderness or step-off deformity. Neck: Yes normal visual inspection, Yes full ROM and Yes no meningeal signs Resp: Effort & Inspection: normal respiratory effort Auscultation: clear to auscultation bilaterally Cardio: Rate: regular rate Rhythm: regular rhythm GI: Inspection: Yes normal to inspection Palpation (GI): Soft to palpation and nontender : General: Yes no CVA tenderness Back/Spine/Pelvis: Other: No midline spinous tenderness or step off deformity. there is left paraspinal muscle tenderness without palpable spasm or mass. ambulating w/ steady gait assisted by cane. Back: no CVA tenderness Neuro: Other: Strength 5/5 intact throughout.? No saddle anesthesia.? Sensation intact to light touch.? Neurovascular intact distally.? General: patient oriented x3, gait normal and no meningeal signs Cranial nerves: Yes Equal, round and reactive pupils present Gait exam (Neuro): Normal gait present Course Course Course Narrative: 1250-- CT head/brain/c spine without acute bleed or fracture. XR thoracic and lumbar spine without fracture or subluxation. > discussed all work up results w/ patient. she reports symptom improvement with lido, flexeril, and toradol. Patient has remained stable throughout ED visit today. Discussed worrisome signs and symptoms and when to return to the ED. All questions answered at this time. Patient is agreeable with disposition and stable for discharge. Medications Administered Discontinued Medications Generic Name Dose Route Start Last Admin Trade Name Frelidya PRN Reason Stop Dose Admin Cyclobenzaprine HCl 5 mg 03/24/24 10:49 03/24/24 11:08 Cyclobenzaprine Hcl 5 Mg Tablet PO 03/24/24 10:50 5 mg ONCE ONE Administration Ketorolac Tromethamine 30 mg 03/24/24 10:49 03/24/24 11:07 Ketorolac Tromethamine 30 Mg/Ml Vial IM 03/24/24 10:50 30 mg ONCE ONE Administration Lidocaine 1 patch 03/24/24 10:49 03/24/24 11:08 Lidocaine 4 % Patch Adh..Patch TRANSDERMA 03/24/24 10:50 1 patch ONCE ONE Administration Protocol Medical Decision Making Medical Decision Making MDM Narrative: 58 year old assigned female at with pmhx significant for hepatic steatosis, VELASQUEZ, chronic pain syndrome, OA, T2DM, HTN, morbid obesity s/p gastric bypass present to the ED today for evaluation of left sided back pain s/p mechanical fall occurring 5 days ago. VSS. Afebrile. she is nontoxic appearing and in NAD. exam nonfocal. nv intact distally. No midline spinous tenderness or step off deformity. there is left paraspinal muscle tenderness without palpable spasm or mass. Strength 5/5 intact throughout.? No saddle anesthesia.? Sensation intact to light touch.? Neurovascular intact distally.?ambulating with steady gait assisted by cane which is her baseline. Differential diagnosis includes MSK sprain/strain, fracture, subluxation, disc herniation, sciatica. Unlikely cord compression, cauda equina, Guillain-[place], epidural abscess, ICH. CVA/TIA. Plan for imaging, pain control, and re-evaluation. Differential Diagnosis Differential Diagnoses: The differential diagnosis associated with the presentation includes as above Admission/Observation Not indicated. Independent Interpretation I performed an independent interpretation of an: Plain X-Ray and CT Scan Interpretation: XR thoracic and lumbar spine w/o acute fracture, agree with radiologist's interpretation. CT head/brain/cspine w/o bleed or fracture, agree with radiologist's interpretation. Radiology Impression Discussion of test interpretation with radiology: I have reviewed the radiologist's reading. Radiologist Impression: EXAMINATION: XR LUMBOSACRAL SPINE CLINICAL INFORMATION: Patient fell onto the back COMPARISON: None available. TECHNIQUE: Three views of the lumbosacral spine. FINDINGS: There is advanced degenerative change L3-S1 with spondylitic change observed but no acute fracture. Alignment is preserved in the lumbar spine. Spondylitic change with minor anterior compression observed T11 and T10 likely chronic. XR/XR lumbar spine 2-3V IMPRESSION: Multilevel degenerative change. No acute findings. EXAMINATION: XR THORACOLUMBAR SPINE CLINICAL INFORMATION: Pain after falling COMPARISON: None available. TECHNIQUE: 2 views FINDINGS: There is spondylitic change throughout the mid to lower lumbar spine but I do not see evidence of an acute fracture. Paraspinal soft tissues are normal. Minor areas of anterior wedging in the lower thoracic spine appear chronic. XR/XR thoracic spine 2V IMPRESSION: Multilevel degenerative change. No acute findings. EXAMINATION: CT CERVICAL SPINE WITHOUT CONTRAST CLINICAL INFORMATION: Fall. Pain COMPARISON: None available. TECHNIQUE: Thin section axial imaging with sagittal coronal reformats. This CT examination was performed using dose optimization techniques as appropriate, variously including the following: *Automated exposure control *Adjustment of mA and/or kV according to patient size (this includes techniques or standardized protocols for targeted exams where dose is matched to indication/reason for exam; i.e. extremities or head) *Use of iterative reconstruction technique DLP: 695 mGy-cm FINDINGS: There is anterior spondylitic change observed throughout the C-spine but no fracture or destructive process, alignment abnormality or mass effect on the spinal canal. Prevertebral soft tissues are normal. CT/CT cervical spine wo IV con IMPRESSION: Degenerative change. No acute findings. Fleischner guidelines were followed. EXAMINATION: CT HEAD WITHOUT CONTRAST CLINICAL INFORMATION: Fall with head strike COMPARISON: 01/22/2024 TECHNIQUE: Contiguous axial imaging was performed from the skull base to vertex without intravenous administration of contrast. This CT examination was performed using dose optimization techniques as appropriate, variously including the following: *Automated exposure control *Adjustment of mA and/or kV according to patient size (this includes techniques or standardized protocols for targeted exams where dose is matched to indication/reason for exam; i.e. extremities or head) *Use of iterative reconstruction technique DLP: 746 mGy-cm FINDINGS: No intra or extra-axial fluid collection or hemorrhage, mass, or mass effect. Calvarium intact. CT/CT head/brain wo IV con IMPRESSION: No acute intracranial pathology. External Record Review External record reviewed: Inpatient record Prescription Management I considered prescription management with: Pain Medication Chronic Conditions Patient?s care impacted by: Other (chronic pain, OA) Social Determinants Patient?s care significantly limited by Social Determinants of Health including: Other Social Determinant of Health Critical Care Time Critical Care Time Critical Care Time: No Discharge Plan Discharge Clinical Impression: Lumbar back pain, Accident due to mechanical fall without injury Patient Disposition: Home, Self-Care Instructions: Back Pain (ED), Fall Prevention (ED) Additional Instructions: The x-rays of your spine do not show acute fracture. The CT scan of your neck does not show fracture. The CT scan of your head/brain does not show acute bleed or fracture. Your pain is likely musculoskeletal. Avoid bending, lifting, or twisting. Use ice several times per day for 20 minutes at a time for the next 48 hours and then change to heat. Naproxen is an anti-inflammatory / pain medication. Take with food. Do not take this with Ibuprofen. Lidoderm patches are numbing patches. Apply to painful areas. In addition you may take Tylenol at home. Follow up with your primary care provider as needed If your pain worsens, if you develop new numbness, tingling, weakness, loss of bowel or bladder function call 911 or return to the ER immediately for evaluation. Prescriptions: New naproxen 250 mg tablet 250 mg PO BID PRN (Reason: pain (scale score 1-3)) Qty: 20 0RF lidocaine [Lidoderm] 5 % adhesive patch,medicated 1 patch topical DAILY Qty: 15 0RF Rx Instructions: leave on most painful area for up to 12 hrs No Action pen needle, diabetic [Pentips] 32 gauge x 5/32 needle 1 ea miscellaneous DAILY Qty: 100 1RF (DME) FreeStyle Lite Strips Strip See Rx Instructions .ROUTE .COMPLEX Qty: 100 0RF Dose Instruction: USE TO TEST BLOOD SUGAR THREE TIMES DAILY Rx Instructions: USE TO TEST BLOOD SUGAR THREE TIMES DAILY atorvastatin 20 mg tablet 20 mg PO BEDTIME Qty: 30 11RF Tresiba FlexTouch U-200 200 unit/mL (3 mL) insulin pen 34 unit SUBCUT BEDTIME Qty: 9 5RF Mounjaro 7.5 mg/0.5 mL pen injector 7.5 mg subcut QWEEK Qty: 2 4RF albuterol sulfate [Proventil HFA] 90 mcg/actuation Hfa Aerosol Inhaler 1 puff INHALATION QID PRN (Reason: Wheezing) ibuprofen 600 mg tablet 600 mg PO Q6H PRN (Reason: pain) Qty: 20 0RF levetiracetam [Keppra] 500 mg tablet 500 mg PO BID Qty: 60 0RF (DME) lancets [FreeStyle Lancets] 28 gauge misc See Rx Instructions .ROUTE .MEDSUPPLY Qty: 100 11RF Rx Instructions: Three times a data day lisinopril-hydrochlorothiazide 20-25 mg tablet 2 tab PO QAM cholecalciferol (vitamin D3) 50 mcg (2,000 unit) tablet 50 mcg PO QAM melatonin 5 mg tablet 5 mg PO QPM (DME) FreeStyle Brian 2 Victor Misc See Rx Instructions .Route Qty: 1 0RF Rx Instructions: As directed (DME) lancets [TRUEplus Lancets] 33 gauge misc See Rx Instructions .ROUTE QID Qty: 100 Rx Instructions: As directed olmesartan 5 mg tablet 5 mg PO QAM Reguloid (aspartame) 3 gram/5.8 gram powder PO QAM lidocaine 5 % adhesive patch,medicated 0 patch topical diclofenac sodium 1 % gel 1 - 2 g topical BID PRN (Reason: pain (scale score 1-3)) Qty: 100 3RF Rx Instructions: to affected joints tizanidine 4 mg tablet 4 mg PO Q8H PRN (DME) CPAP Machine/Device Device See Rx Instructions .Route Rx Instructions: As directed prazosin 5 mg capsule 5 mg PO BEDTIME fluticasone propion-salmeterol [Advair Diskus] 250-50 mcg/dose blister with device 1 ea inhalation alcohol swabs [Alcohol Prep Pads] Pads, Medicated 0 pad topical DIRECTED gabapentin 300 mg capsule 900 mg PO BEDTIME propranolol 40 mg tablet 40 mg PO BID (DME) FreeStyle Brian 2 Sensor Kit See Rx Instructions .Route Qty: 2 6RF Rx Instructions: As directed change every 14 days clonazepam 1 mg tablet 1 mg PO TID peg 3350-electrolytes [Golytely] 236-22.74-6.74 -5.86 gram recon soln 240 ml PO Q10M Qty: 4000 0RF Rx Instructions: as per split prep instructions, until fecal effluent is clear Jardiance 10 mg tablet 10 mg PO DAILY Qty: 30 4RF Referrals: [facility] [Primary Care Provider] - Interventions: ED Discharge Assessment Last Done: 03/24/24 12:57 Discharge Date/Time: 03/24/24 12:57 Print Language: Maltese
[2024-03-24 12:57] VITALS: BP 115/65; PULSE 70; RESP 20; TEMP 36.1; O2SAT 98
== END 2024-03-24 12:57 | disposition home or self-care (01) ==
PROVIDERS: Emergency Provider Emergency Medicine Emergency Medical Services
DX: Z04.3 Encounter for examination and observation following other accident (principal); M54.50 Low back pain, unspecified
CPT/HCPCS: 70450; 72070; 72100; 72125; 96372; 99283; 99284; J1885

== ENCOUNTER 2024-05-06 13:29 | Outpatient (AMB) | payer MEDICAID, SELFPAY ==
--- NOTE | 2024-05-06 13:40 | A.OFFVIS_ITS ---
Vital Signs 05/06/24 13:42 Height 5 ft 2 in Weight 222 lb 10.67 oz BMI 40.7 BP 118/78 Blood Pressure Location Rt brachial Position Sitting Pulse Source Pulse Oximeter Intake Visit Reasons: T2DM/CONFIRMED Intake Note: Patient presents today to re-establish treatment for Type 2 Diabetes Mellitus: Last Diabetic eye exam was on: DUE, HAS AN APPT TODAY Last Podiatry exam was on: Does not see a Administrator Social Welfare Most recent HbA1c: 6.3% 05/06/2024 Random Glucose- 99 mg/dL, Today Manager Medical Device Required: No Accompanied by: Self / Same As Patient Allergies mushroom Allergy (Verified 05/06/24 13:41) Anaphylaxis HPI Comments Details: [58] YO [M/F] who is seen in f/u for T2DM. [place] was last seen by Dr. Dean 12/24/2023. A1c in the office today is 6.2% and he reports having frequent hypoglycemia. Was initially started on treatment with [metformin]. Current regimen: Tresiba 24 units Mounjaro 7.5 mg weekly Jardiance 10 mg Metformin a 1000 mg b.i.d. Dexcom average glucose: [ 109] 14 day continuous glucose monitor report reviewed Glucose Managment indicator [ 6.2] % TIme in range: 100% of the time with some lows during the day Treats lows with juice, fast carbs Has eyes checked yearly, last eye exam [scheduled for today] neuropathy: Some numbness no cramping last foot exam [], sees podiatry every 2 months nephropath: eGFR 55 measured on 01/23. ARB microalbumin [<5] as measured on [12/23]. HLD, on [statin]. Last LDL [77] as measured on []. [Denies] CAD. [facility] screen Fibrosis-4 (Fib-4) Index for liver fibrosis (calculated on lab work done: 01/23) [0.84 ] points Advanced fibrosis [excluded ] Approximate Fibrosis stage Nathaly [0-1] *Use with caution in patients <35 or >65 years old, as the score has been shown to be less reliable in these patients. Prior Imaging: Intervention: weight reduction and GLp-1 agonist Date of Service: 03/14/23 US/US abdomen comp w elastography IMPRESSION: 1. There is generalized increase in hepatic echotexture, consistent with fatty infiltration or hepatocellular disease. Please correlate clinically. Characteristic pericholecystic sparing favors fatty infiltration. No focal hepatic mass or intrahepatic biliary dilatation is seen. 2. There is hepatomegaly. 3. Liver elastography: Measurements are suggestive of compensated advanced chronic liver disease but need further test for confirmation. LIVER STIFFNESS THRESHOLDS: *Liver Stiffness equal or less than 1.3 m/s: High probability of being normal. *Liver Stiffness less than 1.7 m/s: In the absence of other known clinical signs, rules out compensated advanced chronic liver disease. *Liver Stiffness 1.7-2.1 m/s: Suggestive of compensated advanced chronic liver disease but need further test for confirmation. *Liver Stiffness over 2.1 m/s: Rules in compensated advanced chronic liver disease. *Liver Stiffness over 2.4 m/s: Suggestive of clinically significant portal hypertension. Diet: [1 egg for breakfast, often skips lunch, supper rice and beans] Weight: [down forty pounds since the beginning of the year] [Had] diabetes education 1 year ago PFSH 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 myelopathy Disc degeneration, lumbar Hip osteoarthritis Sacroiliitis Illiterate Morbid obesity due to excess calories Diabetes mellitus type 2, controlled, without complications Essential hypertension Hyperlipidemia LDL goal <100 Panic attacks VELASQUEZ on CPAP History of tremor Gender dysphoria Anxiety Depression Asthma Epilepsy Hypertension Surgical History History of esophagogastroduodenoscopy (EGD) Hx of laparoscopic gastric banding Family History Father CVD (cardiovascular disease) Mother Hypertension Social History Household Members: Children and None Household Members Other:: 2 dogs Are you a primary senior care specialist to a significant other at home: No Do you presently have visiting nurse or other home services: Yes Alcohol intake: former Patient Tobacco Use Status: Former Tobacco user Substance Use Type: Marijuana Physical Exam Vital Signs: Last Vital Signs BP 118/78 05/06/24 13:42 BMI result Body Mass Index 40.7 Absence of Cushingoid features. Absence of acromegalic features. Neck exam reveals nl size thyroid about 15 gms. No thyroid nodules palpable. No carotid bruits present. Lungs CTA. Heart S1 S2, Reg R/R. No M/R/ G. Skin exam reveals absence of vitiligo or acanthosis nigricans. Abdominal exam reveals Soft NT/ND with NA BS. No organomegaly present. Const Other: Absence of Cushingoid features. Absence of acromegalic features. Neck exam reveals nl size thyroid about 15 gms. No thyroid nodules palpable. Lungs CTA. Heart S1 S2, Reg R/R. No M/R G. Skin exam reveals absence of vitiligo or acanthosis nigricans. No edema Neck Other: . Extrem Other: Foot exam deferred today due to patient request (has eye appointment scheduled) Results AMB Hemoglobin A1c AMB Hemoglobin A1c 6.3 % Last Edit by RIVAS Tovar on 05/06/24 14:21 Results Reviewed Results Reviewed: Laboratory Last Values Glucose (Clinic) 99 mg/dL (60-115) 05/06/24 13:53 Laboratory Tests 01/31/23 01/23/24 10:15 16:41 Potassium 4.1 Creatinine 1.02 Estim Creat Clear Calc 53.7 Estimated GFR 55 Random Glucose 101 AST 17 ALT 19 Urine Creatinine 93.04 Urine Microalbumin < 5.0 Assessment & Plan Assessment & Plan (1) Diabetes mellitus type 2, controlled, without complications: Comment: IDDM Code(s): E11.9 - Type 2 diabetes mellitus without complications Category: Medical Qualifiers: Diabetes mellitus assisted insulin use: with terminal supervisor use Qualified Code(s): E11.9 - Type 2 diabetes mellitus without complications; Z79.4 - adjunct faculty for medical terminology (current) use of insulin Plan: 58-year-old type 2 diabetic with nephropathy and mild neuropathy presents today having A1c 6.2% with history of hypoglycemia. He is skipping lunch and was encouraged to eat a combination of carbohydrates and protein with a lunch meal and to add an Armenian often at breakfast time. Will continue all current medications with the exception of Tresiba will decrease to 12 units. Patient was encouraged to contact the office if he continues to have low sugars. Prescription sent today for glucose tablets, freestyle Lite, lancets and test strips. (2) Fatty liver disease, nonalcoholic: Code(s): K76.0 - Fatty (change of) liver, not elsewhere classified Category: Medical Plan: Continue weight reduction and GLP 1 agonist. Orders: Orders AMB Hemoglobin A1c Today E11.65 - Type 2 diabetes mellitus with hyperglycemia Medications: New blood-glucose meter (FreeStyle [place] Lite kit) As directed 1 ea 1RF [glucose tablets 5 g] 3 tablets to treat low glucose, may repeat in 15 minutes as needed until glucose greater than 80 15 grams PO TID 30 days PRN 30 tabs 11RF hypoglycemia MDD 45 gram E11.40 - Type 2 diabetes mellitus with diabetic neuropathy, unspecified lancets (TRUEplus Lancets) As directed 100 ea 0RF diabetes mellitus E11.65 - Type 2 diabetes mellitus with hyperglycemia Changed From blood sugar diagnostic (FreeStyle Lite Strips) USE TO TEST BLOOD SUGAR THREE TIMES DAILY 100 strips 0RF E11.65 - Type 2 diabetes mellitus with hyperglycemia, Z79.4 - adjunct faculty for medical terminology (current) use of insulin To blood sugar diagnostic (FreeStyle Lite Strips) USE TO TEST BLOOD SUGAR THREE TIMES DAILY to confirm sensor readings or if low 100 strips 4RF E11.65 - Type 2 diabetes mellitus with hyperglycemia, Z79.4 - adjunct faculty for medical terminology (current) use of insulin From insulin degludec (Tresiba FlexTouch U-200 insulin) 34 units (0.17 mL) subcut BEDTIME 30 days 6 mL 1RF E11.65 - Type 2 diabetes mellitus with hyperglycemia To insulin degludec (Tresiba FlexTouch U-200 insulin) 12 units (0.06 mL) subcut BEDTIME 30 days 6 mL 11RF E11.65 - Type 2 diabetes mellitus with hyperglycemia Refilled lancets (FreeStyle Lancets) Three times a data day 100 ea 11RF E11.65 - Type 2 diabetes mellitus with hyperglycemia, Z79.4 - adjunct faculty for medical terminology (current) use of insulin Discontinued flash glucose scanning reader (FreeStyle Brian 2 [place]) Discontinued Reason: Doctor's Order As directed 1 ea 0RF flash glucose sensor (FreeStyle Brian 2 Sensor kit) Discontinued Reason: Doctor's Order As directed change every 14 days 2 ea 6RF Patient Instructions: The patient was counseled to always carry a source of sugar and on the rule of 15's: Take 3 glucose tablets and repeat again in 15 minutes if blood sugar is not in normal range. Continue to repeat every 15 minutes until blood sugar is normal. The patient was counseled to achieve a target A1C of 7% (154 avg). Fasting blood sugars should be 90-130 in the morning and less than 180 two hours after meals. Reviewed the relationship between poor diabetic control and the developement of complications Coding Level of Care Code Est Pt Level 4 (51035) Complex EM visit Add On G2211 Diagnoses Controlled type 2 diabetes mellitus without complication, with long-term current use of insulin E11.9; Z79.4 Diabetes mellitus assisted insulin use: with assisted use Fatty liver disease, nonalcoholic K76.0 Time Spent (min) 60 Comment Time spent reviewing labs/provider notes, glucose,sensor reports, face to face, chart doc
[2024-05-06 13:42] VITALS: BP 118/78; BMI 40.7
[2024-05-06 14:00] LABS: Glucose, Whole Blood 99 mg/dL (60-115)
== END 2024-05-06 14:23 | disposition home or self-care (01) ==
PROVIDERS: Visit Provider Nurse Practitioner Adult Health
DX: E11.9 Type 2 diabetes mellitus without complications (principal); Z79.4 Long term (current) use of insulin; K76.0 Fatty (change of) liver, not elsewhere classified; E11.65 Type 2 diabetes mellitus with hyperglycemia
CPT/HCPCS: 99214

== ENCOUNTER → 2024-05-06 13:29 | Outpatient (BNVA) | payer MEDICAID, SELFPAY | PROVIDERS: Visit Provider Nurse Practitioner Adult Health | DX: E11.9 Type 2 diabetes mellitus without complications (principal); K76.0 Fatty (change of) liver, not elsewhere classified; Z79.4 Long term (current) use of insulin | CPT/HCPCS: 82947; 83036; 99212 ==

== ENCOUNTER 2024-05-12 07:56 | Outpatient (REF) | payer MEDICAID, SELFPAY ==
--- NOTE | ~2024-05-12 | CT_ITS ---
EXAMINATION: CT ABDOMEN AND PELVIS WITHOUT AND WITH CONTRAST CLINICAL INFORMATION: Renal cyst COMPARISON: 01/14/2024 TECHNIQUE: Multidetector volumetric imaging was performed of the abdomen and pelvis before and after the IV administration of 85 mL of Omnipaque 350 intravenous contrast. Sagittal and coronal reformatted images were obtained on the technologist's workstation. This CT examination was performed using dose optimization techniques as appropriate, variously including the following: *Automated exposure control *Adjustment of mA and/or kV according to patient size (this includes techniques or standardized protocols for targeted exams where dose is matched to indication/reason for exam; i.e. extremities or head) *Use of iterative reconstruction technique DLP: 964 mGy-cm FINDINGS: LUNG BASES: Unremarkable. ABDOMINAL AND PELVIC WALL: Unremarkable. LIVER AND BILIARY TREE: Hepatic steatosis. No focal hepatic lesion or intrahepatic biliary ductal dilatation. GALLBLADDER: Unremarkable. PANCREAS: Unremarkable. SPLEEN: Unremarkable. ADRENAL GLANDS: Unremarkable. KIDNEYS AND URETERS: Punctate nonobstructing right renal stones. No hydronephrosis or nephrolithiasis. Exophytic right renal 1.2 cm cyst measures 50 Hounsfield units on precontrast imaging and 64 Hounsfield units on postcontrast imaging, suggesting this most likely reflects a hemorrhagic cyst, Bosniak 2. GASTROINTESTINAL TRACT: Postsurgical changes related to gastric bypass. Colonic diverticulosis, no findings of diverticulitis. Appendix is within normal limits. VASCULAR: Unremarkable LYMPH NODES/PERITONEUM: No lymphadenopathy. FREE FLUID: None. BLADDER: Unremarkable. PELVIC VISCERA: Unremarkable. OSSEOUS STRUCTURES: Mild degenerative changes of the spine. CT/CT abdomen pelvis wo/w IV con IMPRESSION: * Exophytic right renal 1.2 cm cyst measures 50 Hounsfield units on precontrast imaging and 64 Hounsfield units on postcontrast imaging, suggesting this most likely reflects a hemorrhagic cyst, Bosniak 2. * Hepatic steatosis. Electronically signed by: Mariely Domingo MD 05/12/2024 04:56 PM EDT
[2024-05-12 09:21] LABS: Blood Urea Nitrogen 11 mg/dL (9-16); Estimated Glomerular Filt Rate > 60
[2024-05-12] MEDS: iohexoL 350 MG/ML 100 ML INFUS..BTL 85 ML IV (11:45)
== END 2024-05-12 07:57 | disposition home or self-care (01) ==
LOC: HO.CT 07:56
PROVIDERS: PCP Internal Medicine; Visit Provider Nurse Practitioner Family
DX: N28.1 Cyst of kidney, acquired (principal)
CPT/HCPCS: 36415; 74178; 82565; 84520; Q9967

== ENCOUNTER 2024-05-12 10:01 | Emergency (ER) | payer MEDICAID, SELFPAY ==
--- NOTE | ~2024-05-12 | XR_ITS ---
EXAMINATION: XR CHEST CLINICAL INFORMATION: Chest pain COMPARISON: 08/17/2023 TECHNIQUE: Frontal view of the chest was obtained. FINDINGS: Mild elevation of the right hemidiaphragm, unchanged. No pneumothorax or pleural effusion. Cardiac and mediastinal contours are normal. Pulmonary vasculature is unremarkable. No acute osseous findings. Osteoarthritis is present in the acromioclavicular and glenohumeral joints. XR/XR chest 1V IMPRESSION: 1. No acute pulmonary findings. 2. Mild elevation of the right hemidiaphragm, unchanged. Electronically signed by: Rashawn Adorno MD 05/12/2024 12:17 PM EDT
[2024-05-12 10:15] VITALS: BP 152/77; PULSE 55; RESP 14; TEMP 36.6; O2SAT 100; BMI 44.2
--- NOTE | 2024-05-12 10:21 | ECG_ITS ---
Test Reason : CP/WEAKNESS Blood Pressure : / mmHG Vent. Rate : 056 BPM Atrial Rate : 056 BPM P-R Int : 172 ms QRS Dur : 082 ms QT Int : 442 ms P-R-T Axes : 041 002 018 degrees QTc Int : 426 ms Sinus bradycardia Otherwise normal ECG When compared with ECG of 23-JAN-2024 16:27, Heart rate has decreased Referred By: Mishel Mora Electronically Signed By:NEFTALY SANTIAGO
[2024-05-12 10:22] LABS: Glucose, Whole Blood 81 mg/dL (60-115)
--- NOTE | 2024-05-12 10:24 | ED.SYNCOPE ---
HPI - Syncope General Chief Complaint: Syncope Stated Complaint: syncope Time Seen by Provider: 05/12/24 10:06 History of Present Illness HPI narrative: Patient is a 58-year-old patient with a history of gastric banding Patient was at [facility] for a CT scan abdomen pelvis. After the CT scan patient got very lightheaded dizzy felt very weak went down to the ground she did not eat any breakfast did not have any liquids to drink since last night. No chest pain or diaphoresis no focal weakness. Patient is from home. No fever no chills. No pain on urination. Patient has a history of diabetes. Stated that is she had some kind of abdominal surgery done at [facility] back in January. Related Data Home Medications ?Medication ?Instructions ?Recorded ?Confirmed albuterol sulfate 90 mcg/actuation 1 puff inhalation QID PRN Wheezing 07/14/20 07/24/23 aerosol inhaler (Proventil HFA) tizanidine 4 mg tablet 4 mg PO Q8H PRN 08/01/22 07/24/23 CPAP (CPAP Machine/Device) 08/08/22 07/24/23 alcohol swabs (Alcohol Prep Pads) 0 pad topical DIRECTED 08/08/22 07/24/23 fluticasone 250 mcg-salmeterol 50 1 ea inhalation 08/08/22 07/24/23 mcg/dose blistr powdr for inhalation (Advair Diskus) gabapentin 300 mg capsule 900 mg PO BEDTIME 08/08/22 07/24/23 prazosin 5 mg capsule 5 mg PO BEDTIME 08/08/22 07/24/23 propranolol 40 mg tablet 40 mg PO BID 08/08/22 07/24/23 cholecalciferol (vitamin D3) 50 50 mcg PO QAM 12/21/22 07/24/23 mcg (2,000 unit) tablet melatonin 5 mg tablet 5 mg PO QPM 12/21/22 07/24/23 lidocaine 5 % topical patch 0 patch topical 04/25/23 07/24/23 olmesartan 5 mg tablet 5 mg PO QAM 04/25/23 07/24/23 psyllium husk (aspartame) 3 g PO QAM 04/25/23 07/24/23 gram/5.8 gram oral powder (Reguloid (aspartame)) lisinopril 20 2 tab PO QAM 11/28/23 mg-hydrochlorothiazide 25 mg tablet clonazepam 1 mg tablet 1 mg PO TID 01/01/24 Previous Rx's ?Medication ?Instructions ?Recorded ibuprofen 600 mg tablet 600 mg PO Q6H PRN pain #20 tabs 03/14/21 pen needle, diabetic 32 gauge x 1 ea miscellaneous DAILY #100 ea 05/14/22 5/32 (Pentips) diclofenac sodium 1 % topical gel 1 - 2 g topical BID PRN pain 04/25/23 (scale score 1-3) #100 grams levetiracetam 500 mg tablet 500 mg PO BID #60 tabs 08/16/23 (Keppra) empagliflozin 10 mg tablet 10 mg PO DAILY #30 tabs 12/24/23 (Jardiance) tirzepatide 7.5 mg/0.5 mL 7.5 mg (0.5 mL) subcut QWEEK #2 mL 12/25/23 subcutaneous pen injector (Lacie) peg 3350-electrolytes 236 240 ml PO Q10M colonoscopy #4,000 01/01/24 gram-22.74 gram-6.74 gram-5.86 mL gram solution (Golytely) lidocaine 5 % topical patch 1 patch topical DAILY #15 ea 03/24/24 (Lidoderm) naproxen 250 mg tablet 250 mg PO BID PRN pain (scale 03/24/24 score 1-3) #20 tabs atorvastatin 20 mg tablet 20 mg PO BEDTIME #90 tabs 04/23/24 blood sugar diagnostic (FreeStyle #100 strips 05/06/24 Lite Strips) blood-glucose meter (FreeStyle #1 ea 05/06/24 Energy Lite kit) glucose tablets 15 g PO TID PRN hypoglycemia 30 05/06/24 days #30 tabs insulin degludec 200 unit/mL (3 12 unit (0.06 mL) subcut BEDTIME 05/06/24 mL) subcutaneous pen (Tresiba 30 days #6 mL FlexTouch U-200 insulin) lancets 28 gauge (FreeStyle #100 ea 05/06/24 Lancets) lancets 33 gauge (TRUEplus Lancets) #100 ea 05/06/24 Allergies Allergy/AdvReac Type Severity Reaction Status Date / Time mushroom Allergy Anaphylaxis Verified 05/12/24 10:19 Review of Systems Review of Systems: Positive generalized malaise Yes all other systems are reviewed and are negative [facility] Past Medical History Attestation statement: The following information was validated with the patient. 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 myelopathy Disc degeneration, lumbar Hip osteoarthritis Sacroiliitis Illiterate Morbid obesity due to excess calories Diabetes mellitus type 2, controlled, without complications Essential hypertension Hyperlipidemia LDL goal <100 Panic attacks VELASQUEZ on CPAP History of tremor Gender dysphoria Anxiety Depression Asthma Epilepsy Hypertension Surgical History History of esophagogastroduodenoscopy (EGD) Hx of laparoscopic gastric banding Family History Family History Father CVD (cardiovascular disease) Mother Hypertension Social History Social History Household Members: Children and None Household Members Other:: 2 dogs Are you a primary family day care provider to a significant other at home: No Do you presently have visiting nurse or other home services: Yes Alcohol intake: former Patient Tobacco Use Status: Former Tobacco user Smoked in Last 30 Days: No Use of substances other than those prescribed or required for medical reasons: No Substance Use Type: Marijuana Advance Directives: No Advance Directives Information Provided: No Do you have a plan to hurt others: No Plan Patient : No Physical Exam Vital Signs: Vital Signs: Last Vital Signs Temp 98 F 05/12/24 10:15 Pulse 81 05/12/24 14:58 Resp 18 05/12/24 14:58 BP 150/83 H 05/12/24 14:58 Pulse Ox 96 05/12/24 14:58 O2 Del Method Room Air 05/12/24 14:58 BMI result Body Mass Index 44.2 Appearance: Alert. Oriented X3. No acute distress. Eyes: Pupils equal, round and reactive to light. ENT: Pharynx normal. Neck: Normal inspection. Neck supple. No lymph nodes noted. No crepitus CVS: Normal heart rate and rhythm. Pulses normal. Normal S1 and S2 Respiratory: No respiratory distress. Breath sounds normal. No Wheezing. No rales Abdomen: Soft and nontender. No rigidity. No distention. good BS x4 Skin: Skin warm and dry. Normal skin color. Normal skin turgor. Extremities: No lower extremity edema. Neurovascular intact to all extremities. No Lacerations. No Rash Neuro: Oriented X 3. No motor deficit. No sensory deficit. Moving all extermities. No slurred speech Medications Administered Discontinued Medications Generic Name Dose Route Start Last Admin Trade Name Freq PRN Reason Stop Dose Admin Sodium Chloride 1,000 mls @ 999 mls/hr 05/12/24 10:30 05/12/24 12:41 Ns IV 05/12/24 11:30 Infused .Q1H1M YEIMI Infusion Medical Decision Making Medical Decision Making [facility] Narrative: Patient's symptoms likely vasovagal. Have not had breakfast this morning. Been up all morning. Had lightheadedness dizziness then had a near syncopal episode. Symptom has completely resolved. My interpretation of patient's EKG showed a sinus pattern heart rate is 60 SD QRS QTC normal no acute ST segment elevation. Patient's troponin is negative. Well-appearing symptom improved after a meal here in the emergency department. Patient's chest x-ray is grossly negative. Waited for the CT chest scan that was ordered outpatient basis. Patient's abdomen is soft. No acute distress patient wants to go home. Will discharge patient. It has been over [address] scan still has not been read. As radiology to read the CT scan in no avail. Differential Diagnosis Differential Diagnoses: The differential diagnosis associated with the presentation includes Lab Data [facility] Lab Attestation statement: I reviewed the patient's lab results. 05/12/24 11:16 05/12/24 11:16 Labs: Lab Results 05/12/24 05/12/24 Range/Units 10:05 11:16 WBC 9.1 (4.8-10.8) X10*3/uL RBC 5.58 H (4.20-5.50) X10*6/uL Hgb 14.2 (12.0-16.0) g/dl Hct 45.1 (37.0-47.0) % MCV 80.8 (80.0-98.0) fL MCH 25.4 L (27.0-33.0) pg MCHC 31.5 (31.0-35.0) g/dl RDW 15.5 (11.0-16.0) % Plt Count 246 (160-400) X10*3/uL MPV 11.3 (9.4-12.3) fL Immature Gran % (Auto) 0.2 (0.0-0.4) % Neut % (Auto) 68.4 (45-73) % Lymph % (Auto) 22.9 (20-40) % Clinch % (Auto) 6.4 (2-11) % Eos % (Auto) 1.8 (0-4) % Baso % (Auto) 0.3 (0-2) % Lymph # (Auto) 2.1 (1.2-4.9) X10*3/uL Clinch # (Auto) 0.6 (0.1-1.2) X10*3/uL Eos # (Auto) 0.2 (0.0-0.4) X10*3/uL Baso # (Auto) 0.0 (0.0-0.2) X10*3/uL Abs Immat Gran (auto) 0.02 (0.00-0.03) X10*3/uL Absolute Neuts (auto) 6.2 (2.0-8.3) x10*3/uL Absolute Nucleated RBC 0.000 (0.0-0.012) X10*3/uL Nucleated RBC % (auto) 0.0 (0.0-0.2) /100WBC Sodium 140 (135-145) mmol/L Potassium 4.2 (3.3-5.1) mmol/L Chloride 109 H (96-108) mmol/L Carbon Dioxide 24 (22-29) mmol/L Anion Gap 11 L (12-20) BUN 10 (9-16) mg/dL Creatinine 0.88 (0.5-1.4) mg/dL Estim Creat Clear Calc 76.2 Estimated GFR > 60 POC Glucose 81 (60-115) mg/dL Random Glucose 88 (60-115) mg/dL Calcium 9.0 (8.4-10.2) mg/dL Total Bilirubin 0.5 (0.0-1.0) mg/dL Direct Bilirubin 0.1 (0.0-0.5) mg/dL AST 19 (5-31) U/L ALT 14 (0-31) U/L Alkaline Phosphatase 79 (39-117) U/L Troponin I High Sens < 2.7 (<3.5-17.0) ng/L Total Protein 7.0 (6.5-8.0) g/dL Albumin 3.6 (3.5-5.0) g/dL Independent Interpretation I performed an independent interpretation of an: EKG (Sinus heart rate is 60 SD QRS QTC within normal limits no acute ST segment elevation) Discharge Plan Discharge Clinical Impression: Syncope, vasovagal Patient Disposition: Home, Self-Care Instructions: Syncope (ED) Prescriptions: No Action pen needle, diabetic [Pentips] 32 gauge x / needle 1 ea miscellaneous DAILY Qty: 100 1RF Mounjaro 7.5 mg/0.5 mL pen injector 7.5 mg subcut QWEEK Qty: 2 4RF atorvastatin 20 mg tablet 20 mg PO BEDTIME Qty: 90 3RF albuterol sulfate [Proventil HFA] 90 mcg/actuation Hfa Aerosol Inhaler 1 puff INHALATION QID PRN (Reason: Wheezing) ibuprofen 600 mg tablet 600 mg PO Q6H PRN (Reason: pain) Qty: 20 0RF levetiracetam [Keppra] 500 mg tablet 500 mg PO BID Qty: 60 0RF naproxen 250 mg tablet 250 mg PO BID PRN (Reason: pain (scale score 1-3)) Qty: 20 0RF lidocaine [Lidoderm] 5 % adhesive patch,medicated 1 patch topical DAILY Qty: 15 0RF Rx Instructions: leave on most painful area for up to 12 hrs lisinopril-hydrochlorothiazide 20-25 mg tablet 2 tab PO QAM cholecalciferol (vitamin D3) 50 mcg (2,000 unit) tablet 50 mcg PO QAM melatonin 5 mg tablet 5 mg PO QPM olmesartan 5 mg tablet 5 mg PO QAM Reguloid (aspartame) 3 gram/5.8 gram powder PO QAM lidocaine 5 % adhesive patch,medicated 0 patch topical diclofenac sodium 1 % gel 1 - 2 g topical BID PRN (Reason: pain (scale score 1-3)) Qty: 100 3RF Rx Instructions: to affected joints tizanidine 4 mg tablet 4 mg PO Q8H PRN (DME) CPAP Machine/Device Device See Rx Instructions .Route Rx Instructions: As directed prazosin 5 mg capsule 5 mg PO BEDTIME fluticasone propion-salmeterol [Advair Diskus] 250-50 mcg/dose blister with device 1 ea inhalation alcohol swabs [Alcohol Prep Pads] Pads, Medicated 0 pad topical DIRECTED gabapentin 300 mg capsule 900 mg PO BEDTIME propranolol 40 mg tablet 40 mg PO BID clonazepam 1 mg tablet 1 mg PO TID peg 3350-electrolytes [Golytely] 236-22.74-6.74 -5.86 gram recon soln 240 ml PO Q10M Qty: 4000 0RF Rx Instructions: as per split prep instructions, until fecal effluent is clear Tresiba FlexTouch U-200 200 unit/mL (3 mL) insulin pen 12 unit subcut BEDTIME 30 Days Qty: 6 11RF (DME) FreeStyle Lite Strips Strip See Rx Instructions .ROUTE .COMPLEX Qty: 100 4RF Dose Instruction: USE TO TEST BLOOD SUGAR THREE TIMES DAILY Rx Instructions: USE TO TEST BLOOD SUGAR THREE TIMES DAILY to confirm sensor readings or if low (DME) lancets [FreeStyle Lancets] 28 gauge misc See Rx Instructions .ROUTE .MEDSUPPLY Qty: 100 11RF Rx Instructions: Three times a data day (DME) blood-glucose meter [FreeStyle Energy Lite] Kit See Rx Instructions .ROUTE .MEDSUPPLY Qty: 1 1RF Rx Instructions: As directed glucose tablets 5 g tablet 15 g PO TID MDD 45 gram PRN (Reason: hypoglycemia) 30 Days Qty: 30 11RF Rx Instructions: 3 tablets to treat low glucose, may repeat in 15 minutes as needed until glucose greater than 80 (DME) lancets [TRUEplus Lancets] 33 gauge misc See Rx Instructions .ROUTE QID Qty: 100 0RF Rx Instructions: As directed Jardiance 10 mg tablet 10 mg PO DAILY Qty: 30 4RF Referrals: Ric Mullen MD [Primary Care Provider] - 05/14/24 Print Language: Botswanan
[2024-05-12 11:05] VITALS: BP 158/98; PULSE 64; RESP 13; O2SAT 100
[2024-05-12 11:22] LABS: MANUAL DIFF FLAG NO
[2024-05-12] MEDS: 0.9 % Sodium Chloride 1,000 ML 999 ML IV (11:22)
[2024-05-12 11:27] LABS: Basophils Percent Auto 0.3 % (0-2); Eosinophils Absolute Auto 0.2 X10*3/uL (0.0-0.4); Eosinophils Percent Auto 1.8 % (0-4); Hematocrit 45.1 % (37.0-47.0); Hemoglobin 14.2 g/dl (12.0-16.0); Imm Gran Abs Auto 0.02 X10*3/uL (0.00-0.03); Imm Gran Pct Auto 0.2 % (0.0-0.4); Lymphocytes Absolute Auto 2.1 X10*3/uL (1.2-4.9); Lymphocytes Percent Auto 22.9 % (20-40); Mean Corpuscular HGB Conc 31.5 g/dl (31.0-35.0); Mean Corpuscular Hemoglobin 25.4 pg (27.0-33.0); Mean Corpuscular Volume 80.8 fL (80.0-98.0); Mean Platelet Volume 11.3 fL (9.4-12.3); Monocytes Absolute Auto 0.6 X10*3/uL (0.1-1.2); Monocytes Percent Auto 6.4 % (2-11); Neutrophils Absolute Auto 6.2 x10*3/uL (2.0-8.3); Neutrophils Percent Auto 68.4 % (45-73); Platelet Count 246 X10*3/uL (160-400); Red Blood Count 5.58 X10*6/uL (4.20-5.50); Red Cell Distribution Width 15.5 % (11.0-16.0); White Blood Count 9.1 X10*3/uL (4.8-10.8)
[2024-05-12 11:45] LABS: Alanine Aminotransferase 14 U/L (0-31); Albumin Level 3.6 g/dL (3.5-5.0); Alkaline Phosphatase 79 U/L (39-117); Anion Gap 11 (12-20); Aspartate Amino Transferase 19 U/L (5-31); Bilirubin Direct 0.1 mg/dL (0.0-0.5); Bilirubin Total 0.5 mg/dL (0.0-1.0); Blood Urea Nitrogen 10 mg/dL (9-16); Carbon Dioxide 24 mmol/L (22-29); Chloride 109 mmol/L (96-108); Creatinine Clr Calc Pharmacy 76.2; Estimated Glomerular Filt Rate > 60; Glucose Random 88 mg/dL (60-115); Potassium 4.2 mmol/L (3.3-5.1); Sodium 140 mmol/L (135-145)
[2024-05-12 11:47] LABS: Troponin-I High Sensitivity < 2.7 ng/L (<3.5-17.0)
[2024-05-12 14:58] VITALS: BP 150/83; PULSE 81; RESP 18; O2SAT 96
[2024-05-12 15:24] VITALS: BP 150/83; PULSE 81; RESP 18; TEMP 36.6; O2SAT 96
== END 2024-05-12 15:37 | disposition home or self-care (01) ==
PROVIDERS: Emergency Provider Emergency Medicine Emergency Medical Services; PCP Internal Medicine
DX: R55 Syncope and collapse (principal); R42 Dizziness and giddiness; E11.9 Type 2 diabetes mellitus without complications; I10 Essential (primary) hypertension; E78.5 Hyperlipidemia, unspecified; J45.909 Unspecified asthma, uncomplicated; Z79.02 Long term (current) use of antithrombotics/antiplatelets; Z79.899 Other long term (current) drug therapy; Z79.4 Long term (current) use of insulin
CPT/HCPCS: 36415; 71045; 80048; 80076; 82947; 84484; 85025; 93005; 96360; 99284; 99285

== ENCOUNTER 2024-08-13 04:44 | Emergency (ER) | payer MEDICAID, SELFPAY ==
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
[2024-08-13 05:19] VITALS: BP 152/76; PULSE 95; RESP 18; TEMP 36.8; O2SAT 96; BMI 37.4
[2024-08-13 05:27] LABS: Basophils Percent Auto 0.4 % (0-2); Eosinophils Absolute Auto 0.2 X10*3/uL (0.0-0.4); Eosinophils Percent Auto 2.3 % (0-4); Hematocrit 44.2 % (37.0-47.0); Hemoglobin 14.3 g/dl (12.0-16.0); Imm Gran Abs Auto 0.02 X10*3/uL (0.00-0.03); Imm Gran Pct Auto 0.2 % (0.0-0.4); Lymphocytes Percent Auto 28.8 % (20-40); MANUAL DIFF FLAG NO; Mean Corpuscular HGB Conc 32.4 g/dl (31.0-35.0); Mean Corpuscular Volume 80.2 fL (80.0-98.0); Mean Platelet Volume 10.6 fL (9.4-12.3); Monocytes Absolute Auto 0.6 X10*3/uL (0.1-1.2); Monocytes Percent Auto 5.7 % (2-11); Neutrophils Absolute Auto 6.6 x10*3/uL (2.0-8.3); Neutrophils Percent Auto 62.6 % (45-73); Platelet Count 239 X10*3/uL (160-400); Red Blood Count 5.51 X10*6/uL (4.20-5.50); Red Cell Distribution Width 14.1 % (11.0-16.0); White Blood Count 10.5 X10*3/uL (4.8-10.8)
[2024-08-13 05:48] LABS: Amphetamine Screen Urine Not Detected (Not Detect); Barbiturates, Urine Not Detected (Not Detect); Benzodiazepines Screen Urine Not Detected (Not Detect); Buprenorphine Scr Not Detected (Not Detect); Cannabinoid Screen Urine POSITIVE (Not Detect); Cocaine Screen Urine Not Detected (Not Detect); Fentanyl, urine Not Detected (Not Detect); Methadone Screen, Urine Not Detected (Not Detect); Opiate Screen Urine Not Detected (Not Detect); Oxycodone Screen Urine Not Detected (Not Detect); Phencyclidine Screen Urine Not Detected (Not Detect)
--- NOTE | 2024-08-13 05:57 | PC.NURSE ---
changeover completed by t/w which revealed no contraband on client or evident injury, patient d/t gender transition patient allowed to retain tank top, notified provider. patient prefers he him p;ronouns.
[2024-08-13 06:28] LABS: Alanine Aminotransferase 15 U/L (0-31); Albumin Level 3.9 g/dL (3.5-5.0); Alkaline Phosphatase 93 U/L (39-117); Anion Gap 14 (12-20); Aspartate Amino Transferase 22 U/L (5-31); Bilirubin Direct 0.2 mg/dL (0.0-0.5); Bilirubin Total 0.5 mg/dL (0.0-1.0); Blood Urea Nitrogen 11 mg/dL (9-16); Calcium 9.9 mg/dL (8.4-10.2); Carbon Dioxide 22 mmol/L (22-29); Chloride 116 mmol/L (96-108); Estimated Glomerular Filt Rate 56; Ethanol < 10 mg/dL; Glucose Random 110 mg/dL (60-115); Magnesium 1.9 mg/dL (1.6-2.6); Potassium 3.8 mmol/L (3.3-5.1); Sodium 148 mmol/L (135-145); Total Protein 7.4 g/dL (6.5-8.0)
[2024-08-13 08:51] VITALS: BP 140/80; PULSE 80; RESP 18; TEMP 36.6; O2SAT 99
--- NOTE | 2024-08-13 08:56 | MHC.CARE ---
Pt does meet the criteria for IPLOC at this time and will be discharged to follow up with current providers. Provider in agreement.
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
== END 2024-08-13 08:52 | disposition home or self-care (01) ==
PROVIDERS: Emergency Provider Emergency Medicine
DX: F41.9 Anxiety disorder, unspecified (principal); E11.9 Type 2 diabetes mellitus without complications; I10 Essential (primary) hypertension; E78.5 Hyperlipidemia, unspecified; F64.0 Transsexualism; Z79.890 Hormone replacement therapy; Z87.891 Personal history of nicotine dependence; Z79.02 Long term (current) use of antithrombotics/antiplatelets; Z79.899 Other long term (current) drug therapy; Z79.4 Long term (current) use of insulin
CPT/HCPCS: 36415; 80048; 80076; 80307; 83735; 85025; 99284

== ENCOUNTER 2024-08-27 12:56 | Outpatient (REF) | payer MEDICAID, SELFPAY | END 2024-08-27 12:57 | disposition home or self-care (01) | LOC: HO.MAMMO 12:56 | PROVIDERS: PCP Registered Nurse; Visit Provider Internal Medicine | DX: Z12.31 Encounter for screening mammogram for malignant neoplasm of breast (principal) | CPT/HCPCS: 77063; 77067 ==

== ENCOUNTER → 2024-08-27 13:15 | Outpatient (BNV) | payer MEDICAID, SELFPAY | PROVIDERS: PCP Registered Nurse; Visit Provider Internal Medicine | DX: Z12.31 Encounter for screening mammogram for malignant neoplasm of breast (principal) | CPT/HCPCS: 77063; 77067 ==

== ENCOUNTER 2024-09-08 16:29 | Outpatient (REF) | payer MEDICAID, SELFPAY ==
[2024-09-09 11:08] LABS: HPV 16,18/45 See PAP report
[2024-09-13 23:00] LABS: C. trachomatis RNA TMA Not Detected (Not Detected); N. gonorrhoeae RNA TMA Not Detected (Not Detected); Trichomonas (NAAT) Not Detected (Not Detected)
== END 2024-09-08 16:30 | disposition home or self-care (01) ==
LOC: HO.LNP 16:29
PROVIDERS: Visit Provider Advanced Practice Midwife
DX: N95.0 Postmenopausal bleeding (principal); Z11.3 Encounter for screening for infections with a predominantly sexual mode of transmission; Z11.51 Encounter for screening for human papillomavirus (HPV)
CPT/HCPCS: 87491; 87591; 87626; 87661; 88175

== ENCOUNTER 2024-09-14 13:21 | Outpatient (REF) | payer MEDICAID, SELFPAY ==
[2024-09-14 16:10] LABS: MANUAL DIFF FLAG NO
[2024-09-14 16:21] LABS: Basophils Percent Auto 0.3 % (0-2); Eosinophils Absolute Auto 0.3 X10*3/uL (0.0-0.4); Eosinophils Percent Auto 4.2 % (0-4); Hematocrit 43.5 % (37.0-47.0); Hemoglobin 13.7 g/dl (12.0-16.0); Imm Gran Abs Auto 0.06 X10*3/uL (0.00-0.03); Imm Gran Pct Auto 0.8 % (0.0-0.4); Lymphocytes Absolute Auto 2.5 X10*3/uL (1.2-4.9); Lymphocytes Percent Auto 33.4 % (20-40); Mean Corpuscular HGB Conc 31.5 g/dl (31.0-35.0); Mean Corpuscular Hemoglobin 26.1 pg (27.0-33.0); Mean Platelet Volume 12.2 fL (9.4-12.3); Monocytes Absolute Auto 0.5 X10*3/uL (0.1-1.2); Monocytes Percent Auto 6.4 % (2-11); Neutrophils Absolute Auto 4.1 x10*3/uL (2.0-8.3); Neutrophils Percent Auto 54.9 % (45-73); Platelet Count 220 X10*3/uL (160-400); Red Blood Count 5.24 X10*6/uL (4.20-5.50); Red Cell Distribution Width 14.3 % (11.0-16.0); White Blood Count 7.5 X10*3/uL (4.8-10.8)
[2024-09-14 18:21] LABS: Cholesterol 146 mg/dL (<200); HDL Cholesterol 39 mg/dL (>40); LDL Cholesterol Calculated 83 mg/dL (<100); Triglycerides 123 mg/dL (<150)
[2024-09-14 18:32] LABS: TSH reflex Free T4 0.12 uIU/mL (0.32-4.0)
[2024-09-14 21:16] LABS: Free T4 (Free Thyroxine) 1.01 ng/dL (0.71-1.85)
[2024-09-15 04:27] LABS: Syphilis Screen Nonreactive (Nonreactive)
[2024-09-15 04:38] LABS: HIV AB/AG Nonreactive (Nonreactive); HIV Num 1 0.76 S/CO (0.00-0.99)
== END 2024-09-14 13:22 | disposition home or self-care (01) ==
LOC: HO.HHCL 13:21
PROVIDERS: Visit Provider Registered Nurse
DX: R25.1 Tremor, unspecified (principal); E11.649 Type 2 diabetes mellitus with hypoglycemia without coma; Z79.4 Long term (current) use of insulin; Z11.59 Encounter for screening for other viral diseases
CPT/HCPCS: 36415; 80061; 84439; 84443; 85025; 86780; 87389

== ENCOUNTER → 2024-09-24 15:41 | Outpatient (BNV) | payer MEDICAID, SELFPAY | PROVIDERS: PCP Registered Nurse; Visit Provider Radiology Diagnostic Radiology | DX: R25.1 Tremor, unspecified (principal) | CPT/HCPCS: 70551 ==

== ENCOUNTER 2024-09-24 15:54 | Outpatient (REF) | payer MEDICAID, SELFPAY ==
--- NOTE | ~2024-09-24 | MR_ITS ---
EXAMINATION: MR BRAIN WITHOUT IV CONTRAST HISTORY: tremor hands and face TECHNIQUE: Sagittal T1, and axial T1, FLAIR, T2, gradient echo, and diffusion weighted MR images of the brain were obtained. COMPARISON: Correlation is made with an unenhanced head CT dated 03/24/2024. FINDINGS: The examination is limited by patient motion. A few scattered periventricular and subcortical white matter hyperintensities are noted on the FLAIR and T2-weighted images which are nonspecific, but can be seen in the setting of small vessel ischemic disease. There is no mass effect or midline shift. The ventricular system is normal in size and configuration. No intra or extra-axial fluid collections are identified. There are no foci of restricted diffusion. Normal vascular flow voids are noted in the basilar and carotid arteries. The visualized paranasal sinuses are clear. MR/MR head/brain wo con IMPRESSION: No acute intracranial abnormality. Electronically signed by: Kingston Chavis MD 09/25/2024 07:31 AM [facility]
== END 2024-09-24 15:55 | disposition home or self-care (01) ==
LOC: HO.MRI 15:54
PROVIDERS: PCP Registered Nurse; Visit Provider Registered Nurse
DX: R25.1 Tremor, unspecified (principal)
CPT/HCPCS: 70551

== ENCOUNTER 2024-10-01 09:53 | Outpatient (REF) | payer MEDICAID, SELFPAY ==
[2024-10-01 11:48] LABS: TSH reflex Free T4 0.27 uIU/mL (0.32-4.0)
[2024-10-01 11:50] LABS: HIV AB/AG Nonreactive (Nonreactive); HIV Num 1 0.06 S/CO (0.00-0.99)
[2024-10-01 12:21] LABS: Free T4 (Free Thyroxine) 0.91 ng/dL (0.71-1.85)
--- OUTSIDE RECORDS SUMMARY | 2024-10-01 12:58 | XMS_ITS | Encounter Summary ---
Author Organization [employer] Address [address] [place] [address] Care Team Providers Care Insurance Risk Manager Name Role Phone [facility] Primary Care Provider [phone] Reason for Visit * Reason Onset Date Comments Medication Question 09/15/2024 Encounter Details Date Type Department Care Team ([facility] st Contact Info) Description 09/15/2024 Refill [facility] [address] [place], [place] [id number] [facility] [address], [place] [id number] Social History Tobacco Use Types Packs/Day Years Used Date Smoking Tobacco: Never Passive Smoke Exposure: Never Smokeless Tobacco: Never Alcohol Use Standard Drinks/Week Comments Never 0 (1 standard drink = 0.6 oz pur e alcohol) Alcohol Answer Date Recorded Frequency of Alcohol Consumption Not on file 10/03/2023 Average Number of Drinks Not on file 024 Frequency of Binge Drinking Not on file 09/2023 Score 0 10/03/2023 Depression Answer Date Recorded Patient Health Questionnaire-9 Score 13 03/16/2024 Patient Health Questionnaire-9 Score 13 03/16/2024 Last PHQ-9: Questionnaire Data Not on file 0 03/16/2024 Housing Stability Answer Date Recorded What is your housing situation today? I have lamar guzman 10/03/[address] you li ve. Do you have problems with any of the following? None of the above 10/03/2023 Food Insecurity Answer Date Recorded Within the past 12 months, y ou worried that your food would run out before you got money to buy more: Never True 10/03/2023 Within the past 12 months,th e food you bought just didn't last and you didn't have enough money to get more: Never True 09/2023 Transportation Answer Date Recorded In the past 12 months, has l ack of transportation kept you from medical appts, meetings, work or from getting things needed for daily living? No 10/03/2023 Utilities Answer Date Recorded In the past 12 months, has t he electric, gas, oil or water company threatened to shut off services in your home? No 10/03/2023 Depression Answer Date Recorded Patient Health Questionnaire-2 Score 5 03/16/2024 Comments No Sex and Gender Information Value Date Recorded Sex Assigned at Female 07/02/2022 10:15 AM EDT Legal Sex Female 12:34 PM EST Gender Identity Male 11/20/2022 2:47 PM EDT Sexual Orientation Something else 11/20/2022 2: 47 PM EDT documented as of this encounter Miscellaneous Notes * Telephone Encounter - Kimberly Michael RN - 09/16/2024 1:08 PM EST TC placed to patient [phone] to inform patient of below message. Patient advised of valium RX being sent to the pharmacy for patient to take 30 mins before MRI on 09/24/24. Patient advised medication will be available for p/u on 09/22/24. Patient verbalized understanding. Patient to f/u PRN. * Telephone Encounter - Jazzmine Dukes - 09/15/2024 3:38 PM EST TC from pt stating need to do MRI on 09/24 and need med script for panic attacks. documented in this encounter Plan of Treatment Not on file documented as of this encounter Visit Diagnoses Not on filedocumented in this encounter Additional Health Concerns Assessment Noted Time PHQ-9 Depression Total Score: 13 024 11:27 AM EDT documented as of this encounter Care Teams Insurance Risk Manager Relationship Specialty Start Date End Date Ginger Perez FNP [address] [place] [address] PCP - General Family Medicine 08/13/22 documented as of this encounter
--- OUTSIDE RECORDS SUMMARY | 2024-10-01 12:58 | XMS_ITS | Encounter Summary ---
Author Organization [employer] Address [address] [place] [address] Care Team Providers Care District Commercial Superintendent Name Role Phone [facility] Primary Care Provider [phone] Reason for Visit * Reason Onset Date Comments Care Coordination 09/15/2024 Encounter Details Date Type Department Care Team ([facility] st Contact Info) Description 09/15/2024 Telephone [facility] [address] [place], [place] [phone] Angelic Keys, OZZY Care Coordination Social History Tobacco Use Types Packs/Day Years [...] Telephone Encounter - Kimberly Michael RN - 09/15/2024 12:33 PM EST TC placed to [facility] x2 in regards to below message. Office requested medication change orders to be faxed to [facility] at [phone]. RN will generate white script and PCP will sign tomorrow (PCP off today) and RN will fax. ----- Message from [facility] sent at 09/15/2024 9:40 AM EST ----- Please reach out to [facility] and ensure that team is aware that due to symptomatic hypoglycemia patient has had the following changes made to his DM regimen Tresiba-STOPPED Mounjaro-decreased to 5mg Jardiance decreased to 10mg Thank you! * Telephone Encounter - Angelic Keys RN - 09/15/2024 9:50 AM EST Tc to [facility] to let them know per PCP Please reach out to [facility] and ensure that team is aware that due to symptomatic hypoglycemia patient has had the following changes made to his DM regimen.Tresiba-STOPPED. Mounjaro-decreased to 5mg. Jardiance decreased to 10mg. Thank you! No answer, lvmto return call and ask to speak to red team nurses. * Telephone Encounter - Angelic Keys RN - 09/15/2024 9:50 AM EST ----- Message from [facility] sent at 09/15/2024 9:40 AM EST ----- Please reach out to [facility] and ensure that team is aware that due to symptomatic hypoglycemia patient has had the following changes made to his DM regimen Tresiba-STOPPED Mounjaro-decreased to 5mg Jardiance decreased to 10mg Thank you! documented in this encounter Plan of Treatment Not on file documented as of this encounter Visit Diagnoses Not on filedocumented in this encounter Additional Health Concerns Assessment Noted Time PHQ-9 Depression Total Score: 13 024 11:27 AM EDT documented as of this encounter Care Teams District Commercial Superintendent Relationship Specialty Start Date End Date Ginger Perez FNP [address] [place] [id number] PCP - General Family Medicine 08/13/22 documented as of this encounter
--- OUTSIDE RECORDS SUMMARY | 2024-10-01 12:58 | XMS_ITS | Encounter Summary ---
Author Organization [employer] Address [address] [facility] [address] [place] [address] Care Team Providers Care Cloth Bleaching Range Tender Name Role Phone [facility] Primary Care Provider [phone] Reason for Visit * Reason Onset Date Comments Nurse Triage 10/07/2023 Encounter Details Date Type Department Care Team ([facility] st Contact Info) Description 10/07/[address] [facility] MEDICINE [address] [place], [place] [phone] [facility] 230 [place], [place] [phone] Nurse Triage Social History Tobacco Use Types Packs/Day Years [...] Answer Date Recorded Patient Health Questionnaire-9 Score 12 10/08/2023 Patient Health Questionnaire-9 Score 12 10/08/2023 Last PHQ-9: Questionnaire Data Not on file 0 10/08/2023 Housing Stability Answer Date Recorded What is [...] Answer Date Recorded Patient Health Questionnaire-2 Score 6 10/08/2023 Comments Unknown Sex and Gender Information Value Date Recorded Sex Assigned at Female 07/02/2022 10:15 AM EDT Legal Sex Female 12:34 PM EST Gender Identity Male 11/20/2022 2:47 PM EDT Sexual Orientation Something else 11/20/2022 2: 47 PM EDT documented as of this encounter Miscellaneous Notes * Telephone Encounter - Natividad Stinson RN - 10/07/2023 3:17 PM EST TC placed to [facility], Ct scan rescheduled to 10/10/23 at 2:30pm. TC placed to pt., pt. Wrote down dateand time. Pt. Agreeable to have rx for constipation sent. Pt. Completed course of levaquin today, started on and completed 5 days. Advised pt. We would be in contact when results are received. Please send rx for constipation, thank you! * Telephone Encounter - Jenniffer Barrera RN - 10/07/2023 9:27 AM EST Call to Hilda Mcmahan, reports continues to have lower back pain. Pt also having some constipation. Per pt started and finished abx and oxycodone. Per pt no further pain with passing urineor dark color of urine. Per pt no call yet for CT scan. Per pt had to do manual disimpaction to have BM this morning. PT using tylenol for pain with ild relief. Pt has not tried any OTC fiber supplements to help with constipation. PT advised will send to PCP to further review and advise team of plan of care. Pt encouraged to drink extra water, high fiber foods and can try small amount of prune juice to help have softer stools. No fever, vomiting or other sx per pt. Pt agrees to PCP review. Protocol Used: Urinary Tract Infection on Antibiotic Follow-up Call - Female (Adult) Protocol-Based Disposition: See in Office or Video Visit Today Override (Final) Disposition: Discuss with PCP and Callback by Nurse Today Override Reason: Already seen and questions Positive Triage Question: * Taking antibiotic > 72 hours (3 days) for UTI and flank or lower back pain is SAME (unchanged,not better) * All higher-acuity triage questions were negative Care Advice Discussed: * Reassurance and Education - Urinary Tract Infection * Drink Extra Fluids * Reasons To Call Back - Fever lasts over 24 hours on antibiotics - You become worse. * Telephone Encounter - Brenda Velarde - 10/07/2023 8:44 AM EST Patient calling to report is still having kidney pain . Patient speaks Wolof. Advised triage nurse will call patient back. documented in this encounter Plan of Treatment Not on file documented as of this encounter Visit Diagnoses Not on filedocumented in this encounter Additional Health Concerns Assessment Noted Time PHQ-9 Depression Total Score: 0 10/03/19 24 10:12 AM EST documented as of this encounter Care Teams Cloth Bleaching Range Tender Relationship Specialty Start Date End Date Ginger Perez FNP [address] [place] [phone] PCP - General Family Medicine 08/13/22 documented as of this encounter
--- OUTSIDE RECORDS SUMMARY | 2024-10-01 12:58 | XMS_ITS | Encounter Summary ---
Author Organization [employer] Address [address] [facility] 7t [place] [address] Care Team Providers Care Instructional Support Technician Name Role Phone [facility] Primary Care Provider [phone] Encounter Details Date Type Department Care Team (Late st Contact Info) Description 08/22/2022 Refill [facility] MEDICINE 230 [place], [place] [phone] [facility], [facility] 230 [place] [address] Muscle spasm Social History Tobacco Use Types Packs/Day Years Used Date Smoking Tobacco: Never Smokeless Tobacco: Never Alcohol Use Standard Drinks/Week Comments Never 0 (1 standard drink = 0.6 oz pur e alcohol) PHQ-2 Answer Date Recorded Patient Health Questionnaire-2 Score 2 08/21/2022 Comments Unknown Sex and Gender Information Value Date Recorded Sex Assigned at Female 07/02/2022 10:15 AM EDT Legal Sex Female 12:34 PM EST Gender Identity Male 11/20/2022 2:47 PM EDT Sexual Orientation Something else 11/20/2022 2: 47 PM EDT COVID-19 Exposure Response Date Recorded In the last 10 days, have yo u been in contact with someone who was confirmed or suspected to have Coronavirus/COVID-19? No / Unsure 08/23/2022 3:20 PM EST documented as of this encounter Plan of Treatment Not on file documented as of this encounter Visit Diagnoses Diagnosis Muscle spasm Spasm of muscle documented in this encounter Additional Health Concerns Assessment Noted Time PHQ-9 Depression Total Score: 9 08/21/20 10:14 AM EST documented as of this encounter Care Teams Instructional Support Technician Relationship Specialty Start Date End Date Ana GERALD Miles [address] [place] [address] PCP - General Family Medicine 08/13/22 documented as of this encounter
--- OUTSIDE RECORDS SUMMARY | 2024-10-01 12:58 | XMS_ITS | Encounter Summary ---
Author Organization [employer] Address [address] [facility] 7t [place] [address] Care Team Providers Care Coremaker Apprentice Name Role Phone [facility] Primary Care Provider [phone] Reason for Visit * Reason Onset Date Comments Durable Medical Equipment 12/18/2022 Encounter Details Date Type Department Care Team ([facility] st Contact Info) Description 12/18/2022 Telephone [facility] MEDICINE 230 [place], [place] [phone] [facility] 230 [place] [address] Durable Medical Equipment Social History Tobacco Use Types Packs/Day Years Used Date Smoking Tobacco: Never Smokeless Tobacco: Never Alcohol Use Standard Drinks/Week Comments Never 0 (1 standard drink = 0.6 oz pur e alcohol) PHQ-2 Answer Date Recorded Patient Health Questionnaire-2 Score 0 12/11/2022 Comments Unknown Sex and Gender Information Value [...] suspected to have Coronavirus/COVID-19? No / Unsure 12/11/2022 3:25 PM EDT documented as of this encounter Miscellaneous Notes * Telephone Encounter - Mireya Colon - 01/02/2023 9:10 AM EDT Thank you, script generated for signature. * Telephone Encounter - Mireya Viramontes - 12/19/2022 10:52 AM EDT Please review message below regarding nebulizer. Patient last appointment was on 12/11, if you agreewith request please add an addendum to chart note. Thank you. * Telephone Encounter - Brenda Velarde - 12/18/2022 2:22 PM EDT [facility]c [facility] nebulizer machine . States pt informed old one stopped working . documented in this encounter Plan of Treatment Not on file documented as of this encounter Visit Diagnoses Not on filedocumented in this encounter Additional Health Concerns Assessment Noted Time PHQ-9 Depression Total Score: 0 12/12/19 23 3:58 PM EDT documented as of this encounter Care Teams Coremaker Apprentice Relationship Specialty Start Date End Date Ginger Perez FNP [address] [place] [address] PCP - General Family Medicine 08/13/22 documented as of this encounter
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
--- OUTSIDE RECORDS SUMMARY | 2024-10-01 12:58 | XMS_ITS | Encounter Summary ---
Author Organization [employer] Address [address] [facility] 7t [place] [address] Care Team Providers Care Manager Mutual Fund Name Role Phone [facility] Primary Care Provider [phone] Reason for Visit * Reason Comments Med Refill Encounter Details Date Type Department Care Team ([facility] st Contact Info) Description 06/25/2023 Refill [facility] MEDICINE 230 [place], [place] [phone] [facility] 230 [place], [place] [phone] Muscle spasm Social History Tobacco Use Types Packs/Day Years Used Date Smoking Tobacco: Never Passive Smoke Exposure: Never Smokeless Tobacco: Never Alcohol Use Standard Drinks/Week Comments Never 0 (1 standard drink = 0.6 oz pur e alcohol) Depression Answer Date Recorded Patient Health Questionnaire-9 Score 16 06/05/2023 Housing Stability Answer Date Recorded What is your housing situation today? I have lamar guzman 06/17/[address] you li ve. Do you have problems with any of the following? None of the above 06/17/2023 Food Insecurity Answer Date Recorded Within the past 12 months, y ou worried that your food would run out before you got money to buy more: Never True 06/17/2023 Within the past 12 months,th e food you bought just didn't last and you didn't have enough money to get more: Never True Transportation Answer Date Recorded In the past 12 months, has l ack of transportation kept you from medical appts, meetings, work or from getting things needed for daily living? No 06/17/2023 Utilities Answer Date Recorded In the past 12 months, has t he electric, gas, oil or water company threatened to shut off services in your home? No 06/17/2023 Depression Answer Date Recorded Patient Health Questionnaire-2 Score 4 06/05/2023 Comments Unknown Sex and Gender Information Value Date Recorded Sex Assigned at Female 07/02/2022 10:15 AM EDT Legal Sex Female 12:34 PM EST Gender Identity Male 11/20/2022 2:47 PM EDT Sexual Orientation Something else 11/20/2022 2: 47 PM EDT documented as of this encounter Plan of Treatment Not on file documented as of this encounter Visit Diagnoses Diagnosis Muscle spasm Spasm of muscle documented in this encounter Additional Health Concerns Assessment Noted Time PHQ-9 Depression Total Score: 16 023 9:09 AM EDT documented as of this encounter Care Teams Manager Mutual Fund Relationship Specialty Start Date End Date Ginger Perez FNP [address] [place] [address] PCP - General Family Medicine 08/13/22 documented as of this encounter
--- OUTSIDE RECORDS SUMMARY | 2024-10-01 12:58 | XMS_ITS | Encounter Summary ---
Author Organization [employer] Address [address] [facility] 7t [place] [address] Care Team Providers Care Concrete Sculptor Name Role Phone [facility] Primary Care Provider [phone] Encounter Details Date Type Department Care Team (Late st Contact Info) Description 09/28/2024 Orders Only [facility] 230 [place], [place] [phone] [facility] 230 [place], [place] [phone] Abnormal TSH (Primary Dx) Social History Tobacco Use Types Packs/Day Years [...] as of this encounter Plan of Treatment Scheduled Orders Name Type Priority Associated Diagnoses Orde r Schedule Thyroid Peroxidase Antibodies Lab Routine Abnormal TSH Expected: 09/28/2024 (Approximate), Expires: 09/28/2025 TRAb (TSH Receptor Binding Antibody) Lab Routine Abnormal TSH Expected: 09/28/2024 (Approximate), Expires: 09/28/2025 documented as of this encounter Procedures Procedure Name Priority Date/Time Associated Diagnosis Comments TSH W/REFLEX TO FT4 Routine 10/01/2024 9 :58 AM EST Abnormal TSH documented in this encounter Results * (ABNORMAL) TSH W/Reflex to FT4 (10/01/2024 9:58 AM EST) TSH reflex Free T4 0.27(L) 0.32 - 4.0 uIU/mL [facility] Blood Venous blood specimen / Unknown 10/01/2024 9:58 AM EST 10/01/2024 11:04 AM EST [facility] LAB BLOOD ORDERABLES Final Re sult [facility] [address] [place] [phone] documented in this encounter Visit Diagnoses Diagnosis Abnormal TSH- Primary documented in this encounter Additional Health Concerns Assessment Noted Time PHQ-9 Depression Total Score: 13 024 11:27 AM EDT documented as of this encounter Care Teams Concrete Sculptor Relationship Specialty Start Date End Date Ginger Perez FNP [address] [place] [address] PCP - General Family Medicine 08/13/22 documented as of this encounter
--- OUTSIDE RECORDS SUMMARY | 2024-10-01 12:58 | XMS_ITS | Encounter Summary ---
Author Organization [employer] Address [address] [facility] 7t [place] [address] Care Team Providers Care Strap Stitcher Name Role Phone [facility] Primary Care Provider [phone] Reason for Visit * Reason Comments Med Refill Encounter Details Date Type Department Care Team ([facility] st Contact Info) Description 05/22/2024 Refill [facility] 230 [place], [place] [phone] Roma Man MD [address] [place] [address] Onychomycosis Social History Tobacco Use Types Packs/Day Years [...] Patient Health Questionnaire-2 Score 5 03/16/2024 Comments Unknown Sex and Gender Information Value Date Recorded Sex Assigned at Female 07/02/2022 10:15 AM EDT Legal Sex Female 12:34 PM EST Gender Identity Male 11/20/2022 2:47 PM EDT Sexual Orientation Something else 11/20/2022 2: 47 PM EDT documented as of this encounter Plan of Treatment Not on file documented as of this encounter Visit Diagnoses Diagnosis Onychomycosis Dermatophytosis of nail documented in this encounter Additional Health Concerns Assessment Noted Time PHQ-9 Depression Total Score: 13 024 11:27 AM EDT documented as of this encounter Care Teams Strap Stitcher Relationship Specialty Start Date End Date Ginger Perez FNP [address] [place] [address] PCP - General Family Medicine 08/13/22 documented as of this encounter
--- OUTSIDE RECORDS SUMMARY | 2024-10-01 12:58 | XMS_ITS | Encounter Summary ---
Author Organization [email or web address] Address [address] [facility] 7t [place] [address] Care Team Providers Care Supervisor Graphite Name Role Phone [facility] Primary Care Provider [phone] Encounter Details Date Type Department Care Team ([facility] st Contact Info) Description 09/14/2024 Orders Only [facility] MEDICINE [address] [place], [place] [phone] [facility] [address] [place], [place] [phone] Social History Tobacco Use Types Packs/Day Years [...] on file documented as of this encounter Procedures Procedure Name Priority Date/Time Associated Diagnosis Comments T4, FREE Routine 09/14/2024 1:25 PM EST documented in this encounter Results * T4, Free (09/14/2024 1:25 PM EST) Free T4 (Free Thyroxine) 1.01 0.71 - 1.85 ng/dL [facility] 09/14/2024 1:25 PM EST 09/14/2024 4:07 PM EST [facility] LAB BLOOD ORDERABLES Final Re sult [facility] [address] [place] [address] [phone] documented in this encounter Visit Diagnoses Not on filedocumented in this encounter Additional Health Concerns Assessment Noted Time PHQ-9 Depression Total Score: 13 024 11:27 AM EDT documented as of this encounter Care Teams Supervisor Graphite Relationship Specialty Start Date End Date [facility] [address] [place] [id number] PCP - General Family Medicine 08/13/22 documented as of this encounter
--- OUTSIDE RECORDS SUMMARY | 2024-10-01 12:58 | XMS_ITS | Encounter Summary ---
Author Organization [employer] Address [address] [facility] 7t [place] [address] Care Team Providers Care Health Educator Name Role Phone [facility] Primary Care Provider [phone] Reason for Visit * Reason Comments Med Refill Encounter Details Date Type Department Care Team ([facility] st Contact Info) Description 11/22/2023 Refill [facility] MEDICINE [address] [place], [place] [phone] [facility] [address] [place], [place] [phone] Type 2 diabetes mellitus with hyperglycemia, with long-term current use of insulin ([facility]) Social History Tobacco Use Types Packs/Day Years [...] Answer Date Recorded Patient Health Questionnaire-9 Score 0 11/13/2023 Patient Health Questionnaire-9 Score 0 11/13/2023 Last PHQ-9: Questionnaire Data Not on file 0 11/13/2023 Housing Stability Answer Date Recorded What is [...] Date Recorded Patient Health Questionnaire-2 Score 0 11/13/2023 Comments Unknown Sex and Gender Information Value Date Recorded Sex Assigned at Female 07/02/2022 10:15 AM EDT Legal Sex Female 12:34 PM EST Gender Identity Male 11/20/2022 2:47 PM EDT Sexual Orientation Something else 11/20/2022 2: 47 PM EDT documented as of this encounter Plan of Treatment Not on file documented as of this encounter Visit Diagnoses Diagnosis Type 2 diabetes mellitus with hyperglycemia, with long-term current use of insulin ([facility]) documented in this encounter Additional Health Concerns Assessment Noted Time PHQ-9 Depression Total Score: 0 11/13/19 24 3:08 PM EDT documented as of this encounter Care Teams Health Educator Relationship Specialty Start Date End Date Ginger Perez FNP [address] [place] [address] PCP - General Family Medicine 08/13/22 documented as of this encounter
--- OUTSIDE RECORDS SUMMARY | 2024-10-01 12:58 | XMS_ITS | Encounter Summary ---
Demographics Address [address] [facility] [address] [place] [address] Mobile Phone Work Phone Home Phone Preferred Language en Marital Status Single Mu-Ism Affiliation Unknown Race Other Race Ethnic Group or Author Organization [employer] Address [address] [facility] 7t [place] [address] Care Team Providers Care Digital Program Manager Name Role Phone [facility] Primary Care Provider [phone] Encounter Details Date Type Department Care Team (Latest Contact Info) Description 09/08/2024 Travel Social History Tobacco Use Types Packs/Day Years [...] documented as of this encounter Care Teams Digital Program Manager Relationship Specialty Start Date End Date Ginger Perez FNP [address] [place] [address] PCP - General Family Medicine 08/13/22 documented as of this encounter
--- OUTSIDE RECORDS SUMMARY | 2024-10-01 12:58 | XMS_ITS | Encounter Summary ---
Author Organization [employer] Address [address] [facility] 7t [place] [address] Care Team Providers Care Drain Tile Machine Operator Name Role Phone [facility] Primary Care Provider [phone] Reason for Visit * Reason Comments Med Refill Encounter Details Date Type Department Care Team ([facility] st Contact Info) Description 05/22/2024 Refill [facility] MEDICINE [address] [place], [place] [phone] [facility] [address] [place], [place] [phone] Low back pain at multiple sites Social History Tobacco Use Types Packs/Day Years [...] as of this encounter Visit Diagnoses Diagnosis Low back pain at multiple sites documented in this encounter Additional Health Concerns Assessment Noted Time PHQ-9 Depression Total Score: 13 024 11:27 AM EDT documented as of this encounter Care Teams Drain Tile Machine Operator Relationship Specialty Start Date End Date Ginger Perez FNP [address] [place] [address] PCP - General Family Medicine 08/13/22 documented as of this encounter
--- OUTSIDE RECORDS SUMMARY | 2024-10-01 12:58 | XMS_ITS | Encounter Summary ---
Author Organization [employer] Address [address] [facility] 7t [place] [address] Care Team Providers Care Motor Runner Name Role Phone [facility] Primary Care Provider [phone] Reason for Visit * Reason Onset Date Comments Results 09/29/2024 Encounter Details Date Type Department Care Team ([facility] st Contact Info) Description 09/29/2024 Telephone [facility] MEDICINE [address] [place], [place] [phone] Marisabel Kaye, OZZY Results Social History Tobacco Use Types Packs/Day Years [...] Telephone Encounter - Kimberly Michael RN - 09/29/2024 4:06 PM EST Images from the original note were not included. TC placed to patient [phone] in regards to below message. Patient verbalized understanding andredanilos she will come to the lab tomorrow morning to complete additional BW. Patient to f/u PRN. [facility] Red Team Nurses Please let patient know that results of recent thyroid screen were abnormal. I would like to repeatwith some additional blood work before deciding next steps. Lab orders were placed. Nonfasting is okay. Labs were otherwise normal. Thank you! * Telephone Encounter - Marisabel Kaye RN - 09/29/2024 10:52 AM EST TC placed to pt to advise of below provider message. Pt states she is trying to sleep. Advised pt to call office back at [phone] and ask to speak to the red team nurses. Will leave task to have a nurse re-attempt call this afternoon. * Telephone Encounter - Marisabel Kaye RN - 09/29/2024 8:44 AM EST TC placed to advise of PCP message, Please let patient know that results of recent thyroid screen were abnormal. I would like to repeat with some additional blood work before deciding next steps. Lab orders were placed. Nonfasting is okay. Labs were otherwise normal. Thank you! Pt reports they were sleeping and would like for us to return call. documented in this encounter Plan of Treatment Not on file documented as of this encounter Visit Diagnoses Not on filedocumented in this encounter Additional Health Concerns Assessment Noted Time PHQ-9 Depression Total Score: 13 024 11:27 AM EDT documented as of this encounter Care Teams Motor Runner Relationship Specialty Start Date End Date Ginger Perez FNP [address] [place] [id number] PCP - General Family Medicine 08/13/22 documented as of this encounter
--- OUTSIDE RECORDS SUMMARY | 2024-10-01 12:58 | XMS_ITS | Encounter Summary ---
Demographics Address [address] [facility] [address] [place] [address] Mobile Phone Work Phone Home Phone Preferred Language en Marital Status Single Pentecostal Affiliation Unknown Race Other Race Ethnic Group or Author Organization [employer] Address [address] [facility] 7t [place] [address] Care Team Providers Care Industrial Relations Commissioner Name Role Phone [facility] Primary Care Provider [phone] Encounter Details Date Type Department Care Team (Latest Contact Info) Description 09/14/2024 Travel Social History Tobacco Use Types Packs/Day [...] documented as of this encounter Care Teams Industrial Relations Commissioner Relationship Specialty Start Date End Date Ginger Perez FNP [address] [place] [address] PCP - General Family Medicine 08/13/22 documented as of this encounter
--- OUTSIDE RECORDS SUMMARY | 2024-10-01 12:58 | XMS_ITS | Encounter Summary ---
Author Organization [employer] Address [address] [facility] 7t [place] [address] Care Team Providers Care Pharmacovigilance Safety Expert Name Role Phone [facility] Primary Care Provider [phone] Reason for Visit * Reason Onset Date Comments Medication Question 03/19/2023 Encounter Details Date Type Department Care Team ([facility] st Contact Info) Description 03/19/2023 Telephone [facility] MEDICINE [address] [place], [place] [phone] [facility] 230 [place], [place] [phone] Medication Question Social History Tobacco Use Types Packs/Day Years [...] suspected to have Coronavirus/COVID-19? No / Unsure 03/08/2023 9:01 AM EDT documented as of this encounter Miscellaneous Notes * Telephone Encounter - Sneha De La Rosa RN - 03/21/2023 9:28 AM EDT TC X1 to pt regarding message below. LVM to return call to nurses. * Telephone Encounter - Vernon Singleton - 03/19/2023 3:49 PM EDT Tc from [facility] requesting a new script for a glucose meter , states pt current one in no longer working. Please contact pt at [phone] documented in this encounter Plan of Treatment Not on file documented as of this encounter Visit Diagnoses Not on filedocumented in this encounter Additional Health Concerns Assessment Noted Time PHQ-9 Depression Total Score: 5 03/14/20 23 10:11 AM EDT documented as of this encounter Care Teams Pharmacovigilance Safety Expert Relationship Specialty Start Date End Date [place] GERALD Miles [address] [place] [address] PCP - General Family Medicine 08/13/22 documented as of this encounter
--- OUTSIDE RECORDS SUMMARY | 2024-10-01 12:58 | XMS_ITS | Encounter Summary ---
Author Organization [employer] Address [address] [facility] [address] [place] [address] Care Team Providers Care Community Center Coordinator Name Role Phone [facility] Primary Care Provider [phone] Reason for Visit * Reason Onset Date Comments Nurse Triage 08/18/2024 Encounter Details Date Type Department Care Team ([facility] st Contact Info) Description 08/18/2024 Telephone [facility] [address] [place], [place] [phone] [facility] 230 [place], [place] [phone] Nurse Triage Social History Tobacco Use Types [...] encounter Miscellaneous Notes * Telephone Encounter - Francie Au RN - 08/24/2024 11:46 AM EST Triage call Pt reports hearing loss in left ear. Pt reports sound like a hissing noise. Pt reports this has been going on for last 2 months. Pt did try to clean ear and felt that was accomplished but, it didn't effect hearing loss. Pt requests to see PCP only. Pt is advised to try heat to the ear, such as warm compress and Pt agreed to try. ASK apt with PCP 09/14/23 @ 1130am. Insurance is verified as active prior to booking. Protocol Used: Hearing Loss or Change (Adult) Protocol-Based Disposition: See in Office or Video Visit within 2 Weeks Positive Triage Question: * ALL other adults with decreased hearing that has gradually decreased * All higher-acuity triage questions were negative Care Advice Discussed: * Reassurance and Education - Temporary Hearing Loss * Reasons To Call Back - Decreased hearing occurs again - Earache - You become worse * Telephone Encounter - Pradip Viramontes - 08/24/2024 11:31 AM EST Tc from pt returning call [phone] * Telephone Encounter - Francie Au RN - 08/18/2024 11:47 AM EST Triage call Pt reports abnormal vaginal bleeding which has been occurring for last several months. Pt reports spotting started yesterday and usually this is gone in a day. This time it is the second day of this spotting and drainage is black in color. Pt denies any other symptoms. Pt reports EDITOR MAP advised to call to see provider. ASK apt with PAMELA Ott 09/08/23 @ 1115am. Pt agrees with this disposition . Insurance is verified as active prior to booking. Protocol Used: Vaginal Bleeding - Abnormal (Adult) Protocol-Based Disposition: See in Office or Video Visit within 2 Weeks Positive Triage Question: * Age > 39 years with irregular or excessive bleeding * All higher-acuity triage questions were negative Care Advice Discussed: * Reasons To Call Back - Severe abdomen pain or lightheadedness occurs - test is positive - Bleeding worsens - Bleeding or spotting lasts over 7 days - You become worse * Telephone Encounter - Brenda Velarde - 08/18/2024 11:40 AM EST Symptom: Vaginal Bleeding - Not Outcome: Schedule an urgent appointment (within 4 hours) or talk to a nurse or provider soon Reason: Started within the past 3 days The caller accepted this outcome. documented in this encounter Plan of Treatment Not on file documented as of this encounter Visit Diagnoses Not on filedocumented in this encounter Additional Health Concerns Assessment Noted Time PHQ-9 Depression Total Score: 13 03/16/ 024 11:27 AM EDT documented as of this encounter Care Teams Community Center Coordinator Relationship Specialty Start Date End Date Ginger Perez FNP [address] [place] [id number] PCP - General Family Medicine 08/13/22 documented as of this encounter
--- OUTSIDE RECORDS SUMMARY | 2024-10-01 12:58 | XMS_ITS | Encounter Summary ---
Author Organization [employer] Address [address] [facility] 7t [place] [address] Care Team Providers Care [employer] Club Travel Counselor Name Role Phone [facility] Primary Care Provider [phone] Encounter Details Date Type Department Care Team ([facility] st Contact Info) Description 12/20/2022 Telephone [facility] MEDICINE 230 [place], [place] [phone] [facility] 230 [place], [place] [phone] Social History Tobacco Use Types Packs/Day Years [...] encounter Miscellaneous Notes * Telephone Encounter - David Galvanos - 12/20/2022 4:16 PM EDT Tc from [facility] requesting status on orders that needed to be sign by PCP on oct Please contact [facility] at [phone] documented in this encounter Plan of Treatment Not on file documented as of this encounter Visit Diagnoses Not on filedocumented in this encounter Additional Health Concerns Assessment Noted Time PHQ-9 Depression Total Score: 0 12/12/19 23 3:58 PM EDT documented as of this encounter Care Teams [employer] Travel Counselor Relationship Specialty Start Date End Date Ginger Perez FNP [address] [place] [address] PCP - General Family Medicine 08/13/22 documented as of this encounter
--- OUTSIDE RECORDS SUMMARY | 2024-10-01 12:58 | XMS_ITS | Encounter Summary ---
Author Organization [employer] Address [address] [facility] [address] [place] [address] Care Team Providers Care Transmission Systems Operator Name Role Phone Ginger Perez Primary Care Provider [phone] Reason for Referral * Imaging (Routine) - Closed Specialty Diagnoses / Procedures Referred By Melita bingham Referred To Contact Radiology Diagnoses Tremor of hands and face Procedures MR Brain w/o Contrast Ginger Perez FNP [address] [place] [address] Phone: tel: fax: [address] Phone: tel: fax: Referral ID Status Reason Start Date Expiration Date Visits Re quested Visits Authorized [id number] Closed 09/15/2024 09/15/2025 1 1 * Consultation (Routine) - Authorized Specialty Diagnoses / Procedures Referred By Melita bingham Referred To Contact Audiology Diagnoses Decreased hearing of left ear Ginger Perez FNP [address] [place] [address] Phone: tel: fax: [facility] [address] [place], [place] Phone: tel: fax: Referral ID Status Reason Start Date Expiration Date Visits Requested Visits Authorized [id number] Authorized Specialty Services Required 09/15/2024 09/15/2025 6 6 Reason for Visit * Reason Comments Hearing Problem Encounter Details Date Type Department Care Team (Late st Contact Info) Description 09/14/2024 11:30 AM EST Office Visit [facility] [address] [place] [address] Ginger Perez FNP [address] [place] [address] Type 2 diabetes mellitus with hypoglycemia without coma, with long-term current use of insulin ([facility]) (Primary Dx); Tremor of hands and face; Decreased hearing of left ear Social History Tobacco Use Types Packs/Day Years [...] Sign Reading Time Taken Comments Blood Pressure 103/60 09/14/2024 11:41 AM EST Pulse 76 09/14/2024 11:41 AM EST Temperature 36.4 ??C (97.6 ??F) 09/14/2024 1 1:41 AM EST Respiratory Rate 18 09/14/2024 11:4 1 AM EST Oxygen Saturation - - Inhaled Oxygen Concentration - - Weight 91.5 kg (201 lb 12.8 oz) 025 11:41 AM EST Height 157.5 cm (5' 2 ) 09/14/2024 11:4 1 AM EST Body Mass Index 36.91 09/14/2024 11:41 AM EST documented in this encounter Progress Notes * [facility], PERENNIAL HOUSE MANAGER - 09/14/2024 11:30 AM EST SUBJECTIVE: Hilda Mcmahan is a 59 y.o. year old adult with T2DM, HTN, non- epileptic psychogenic seizure disorder, VELASQUEZ HLD and NAFLD who presents for concern re decreased hearing left ear . - No longer working with [employer]; Acute Concerns: Decreased hearing left ear for a long time. Worsening intention tremor in bilateral hands; occasional shaking in head as well. No new medications. He is concerned due to a history of a relative with a ?brain tumor. Details unknown. Interim Updates: 07/10/24-OV [address] DR. Dow, presented with acute dizziness. Declined referral to ED. Concern for hypoglycemia. Mounjaro decreased to 5mg; tresiba decreased to 10 units. Persistent hypoglycemia episodes overnight w/ associated dizziness. Compliant with dexcom CGM through [facility] endo Social History Social History Narrative Current living environment: Lives alone, 2 dogs. Daily VNA services. [employer], Brittney. Children: 0 Tobacco Use: None Alcohol Use: None Marijuana Use: Former Other drug use: None Reproductive Health: Sexually Active: Yes Partners are: AFAB Patient Active Problem List Diagnosis Asthma Dyslipidemia Hypertensive disorder Mixed anxiety and depressive disorder Obesity Coarse tremors Seizure disorder (CMS/HCC) Bariatric surgery status Obstructive sleep apnea Gender dysphoria in adult Healthcare maintenance Chronic pain Chronic post-traumatic stress disorder Hypoventilation Illiterate Mixed hyperlipidemia Chronic liver disease Renal calculi Renal cyst Physical deconditioning Gait instability Diabetes mellitus (CMS/HCC) Past Surgical History: Procedure Laterality Date LAPAROSCOPIC GASTRIC BANDING 2013 Family History Problem Relation Name Age of Onset Leukemia Sister Breast cancer Sister Breast cancer Maternal Grandmother Review of Systems Constitutional: Negative for activity change, diaphoresis, fatigue, fever and unexpected weight change. Eyes: Negative for visual disturbance. Respiratory: Negative for apnea, cough, chest tightness and shortness of breath. Cardiovascular: Negative for chest pain, palpitations and leg swelling. Gastrointestinal: Negative for abdominal pain and nausea. Neurological: Positive for tremors. Negative for dizziness, syncope, light- headedness and headaches. OBJECTIVE: Vitals: 09/14/24 1141 BP: 103/60 Pulse: 76 Resp: 18 Temp: 97.6 ??F (36.4 ??C) Physical Exam Constitutional: Appearance: Normal appearance. HENT: Head: Normocephalic. Right Ear: Tympanic membrane, ear canal and external ear normal. Left Ear: Tympanic membrane, ear canal and external ear normal. Nose: Nose normal. Eyes: Conjunctiva/sclera: Conjunctivae normal. Cardiovascular: Rate and Rhythm: Normal rate and regular rhythm. Heart sounds: Normal heart sounds. Pulmonary: Effort: Pulmonary effort is normal. Breath sounds: Normal breath sounds. Musculoskeletal: Right lower leg: No edema. Left lower leg: No edema. Skin: General: Skin is warm and dry. Capillary Refill: Capillary refill takes less than 2 seconds. Neurological: General: No focal deficit present. Mental Status: He is alert and oriented to person, place, and time. Cranial Nerves: Cranial nerves 2-12 are intact. Motor: Tremor present. Coordination: Coordination is intact. Comments: Bilateral intentional tremor of upper extremities. Increasing in amplitude with finger/nose testing. Not present at rest. Strength/sensation intact. Psychiatric: Mood and Affect: Mood normal. Behavior: Behavior normal. ASSESSMENT/PLAN 1. Type 2 diabetes mellitus with hypoglycemia without coma, with long-term current use of insulin ([facility]) (Primary) - BS 115 in office s/p coffee with sugar - Reviewed dexcom CGM data on reader--14 day average in range 80%; low 4% - STOP insulin - Continue mounjaro 5mg - Continue jardiance 10mg - Spoke with VNA nurse on phone during visit and advised of medication change - Will notify [facility] ASA: No, bleeding risk. Low ASCVD score. Bariatric surgery Statin: Yes Dileep/Arb: No (hypotension); on jardiance - Lipid Panel, Standard; Future - Lipid Panel, Standard 2. Tremor of hands and face - Likely essential tremor however given acute worsening, and patient with long hx gait instability/dizziness will order MRI and pending results consider neurology referral - Baseline labs--pt requesting HIV screen. No concerns re exposure - Continue to monitor sx. ED precautions advised - HIV-1/2 Antigen and Antibodies, Fourth Generation, with Reflexes; Future - CBC auto differential; Future - TSH W/Reflex to FT4; Future - Syphilis Screen; Future - HIV-1/2 Antigen and Antibodies, Fourth Generation, with Reflexes - CBC auto differential - TSH W/Reflex to FT4 - Syphilis Screen - MR Brain w/o Contrast; Future - MR Brain w/o Contrast 3. Decreased hearing of left ear - Referral to Audiology; Future - Referral to Audiology Follow Up: 3 months, sooner pending imaging results Current Outpatient Medications on File Prior to Visit Medication Sig Dispense Refill Advair Diskus 250-50 MCG/ACT aerosol powder INHALE 1 PUFF BY MOUTH TWICE DAILY IN THE MORNING AND IN THE EVENING APPROXIMATELY 12 HOURS APART. RINSE MOUTH AFTER USING. 60 each 2 albuterol (2.5 MG/3ML) 0.083% nebulizer solution INHALE 1 AMPULE USING A NEBULIZER EVERY 6 HOURS ASNEEDED FOR WHEEZING 90 mL 11 albuterol (Ventolin HFA) 108 (90 Base) MCG/ACT inhaler INHALE 2 PUFFS BY MOUTH FOUR TIMES DAILY NEEDED 18 g 11 Alcohol Swabs (Alcohol Prep) 70 % pads USE DIRECTED FIVE TIMES DAILY 100 each 11 Alcohol Swabs (Alcohol Prep) pads Use as directed 100 each 11 atorvastatin (Lipitor) 40 MG tablet Take 1 tablet by mouth at bed time. Blood Glucose Monitoring Suppl ([facility] Easy Touch Glucose Meter) device Use as directed to check bloodsugar four times daily 1 each 0 Blood Glucose Monitoring Suppl [facility] [place] Blood Pressure kit Blood Pressure kit Use as directed 1 kit 0 cetirizine (ZyrTEC) 10 MG tablet Take 1 tablet by mouth in the morning. cholecalciferol VITAMIN D (Vitamin D-3) 50 MCG (2000 UT) tablet TAKE 1 TABLET BY MOUTH EVERY DAY INTHE MORNING 90 tablet 1 clonazePAM (KlonoPIN) 1 MG tablet Take 1 tablet (1 mg) by mouth 3 times daily. 90 tablet 5 fluticasone (Flonase Allergy Relief) 50 MCG/ACT nasal spray Administer 2 sprays into affected nostril(s) in the morning. FreeStyle lancets 1 each by Other route if needed. Use as instructed gabapentin (Neurontin) 300 MG capsule Take 1 capsule by mouth every morning and every noon. Also take Gabapentin 600 mg 2 talets at bedtime 180 capsule 2 gabapentin (Neurontin) 600 MG tablet Take 1 tablet (600 mg) by mouth at bedtime. Also take Gabapentin 300 mg every morning and every noon 90 tablet 2 GaviLAX 17 GM/SCOOP powder DISSOLVE 17 GRAM (1 CAPFUL) IN 8 OUNCES OF JUICE OR WATER AND TAKE BY MOUTH TWICE DAILY FOR 3 DAYS DIRECTED 510 g 2 glucose blood (FREESTYLE LITE) test strip 1 strip every 8 (eight) hours. glucose blood test strip Use as directed to check blood sugar four times daily 100 each 12 insulin degludec (Tresiba FlexTouch) 200 UNIT/ML injection INJECT 10 UNITS SUBCUTANEOUSLY EVERY DAY9 mL 3 Jardiance 10 MG Take 10 mg by mouth Once per day. lidocaine (Lidoderm) 5 % patch APPLY 1 PATCH TOPICALLY TO SKIN, LEAVE ON FOR 12 HOURS AND OFF FOR 12 HOURS DIRECTED 30 patch 1 melatonin 5 MG tablet TAKE 1 TABLET BY MOUTH EVERY EVENING 2-3 HOURS BEFORE BEDTIME. 90 tablet 3 Ktyuwcol-Nhewpsvxt-RW 1 % solution Administer 3 drops into affected ear(s) 4 times daily. 10 mL 0 olmesartan (BENIcar) 5 MG tablet Take 2 tablets (10 mg) by mouth in the morning. 60 tablet 11 oxyCODONE (Roxicodone) 5 MG immediate release tablet Take 1 tablet (5 mg) by mouth every 6 (six) hours if needed for severe pain. 12 tablet 0 Pentips 32G X 4 MM [facility] [place] [place] USE DAILY WITH INSULIN 100 each 3 Pentips 32G X 4 MM misc USE TO INJECT INSULIN DAILY DIRECTED 100 each 11 prazosin (Minipress) 5 MG capsule Take 1 capsule (5 mg) by mouth at bedtime. 90 capsule 2 propranolol (Inderal) 40 MG tablet TAKE 1 TABLET BY MOUTH TWICE DAILY 180 tablet 1 Reguloid 57.6 % powder MIX 1 TEASPOONFUL IN 8 OUNCES OF WATER OR JUICE AND DRINK EVERY MORNING 284 g 0 Tirzepatide (Mounjaro) 5 MG/0.5ML solution auto-injector Inject 5 mg under the skin 1 (one) time per week. 2 mL 3 tiZANidine (Zanaflex) 4 MG tablet TAKE 1 TABLET BY MOUTH EVERY 8 HOURS NEEDED. DO NOT EXCEED 3 TABLETS IN 24 HOURS 90 tablet 11 TRUEplus Lancets 33G misc USE TO TEST BLOOD SUGAR FOUR TIMES DAILY 100 each 11 Current Facility-Administered Medications on File Prior to Visit Medication Dose Route Frequency Provider Last Rate Last Admin lidocaine (Xylocaine) 2 % injection 40 mg 2 mL Intradermal Once GERALD Lawrence Belarusian Translation: Patient is bilingual and declines translation services documented in this encounter Plan of Treatment Scheduled Referrals Name Type Priority Associated Diagnoses Orde r Schedule Referral to Audiology Outpatient Referral Routine Decreased hearing of left ear Expected: 09/15/2024 (Approximate), Expires: 09/15/2025 documented as of this encounter Procedures Procedure Name Priority Date/Time Associated Diagnosis Comments MR BRAIN WO CONTRAST Routine 09/24/2024 3:41 PM EST Tremor of hands and face SYPHILIS SCREEN Routine 09/14/2024 1:25 PM EST Tremor of hands and face TSH W/REFLEX TO FT4 Routine 09/14/2024 1 :25 PM EST Tremor of hands and face CBC WITH AUTO DIFFERENTIAL Routine 09/14/2024 1:25 PM EST Tremor of hands and face HIV 1/2 ANTIGEN/ANTIBODY, FOURTH GENERATION W/RFL Routine 09/14/2024 1:25 PM EST Tremor of hands and face LIPID PANEL, STANDARD Routine 09/14/2024 1:25 PM EST Type 2 diabetes mellitus with hypoglycemia without coma, with long-term current use of insulin (CMS/HCC) documented in this encounter Results * MR Brain w/o Contrast (09/24/2024 3:41 PM EST) Anatomical Region Laterality Modality Brain Magnetic Resonan ce 09/24/2024 3:41 PM EST Narrative 09/25/2024 7:34 AM EST ? [facility] ?[address] ?[place] [address] ? Magnetic Resonance Report ? Signed ? Patient: Hilda Mcmahan ?MR#: [id number] ?? [id number] ? : 1965 ?Acct:[id number] ? Age/Sex: 59 / F ?ADM Date: 09/24/24 ? Loc: HO.MRI ? Attending Dr: Ginger DUARTE ? Ordering Physician: Ginger Perez ?? Date of Service: 09/24/24 ?? Procedure(s): MR head/brain wo con ?? Accession Number(s): [id number] ? cc: Ginger Perez ? EXAMINATION: ??MR BRAIN WITHOUT IV CONTRAST ? HISTORY: ??tremor hands and face ? TECHNIQUE: ?Sagittal T1, and axial T1, FLAIR, T2, gradient echo, and ?? diffusion weighted MR images of the brain were obtained. ? COMPARISON: Correlation is made with an unenhanced head CT dated ?? 03/24/2024. ? FINDINGS: The examination is limited by patient motion. ? A few scattered periventricular and subcortical white matter ?? hyperintensities are noted on the FLAIR and T2-weighted images which ?? are nonspecific, but can be seen in the setting of small vessel ?? ischemic disease. ??There is no mass effect or midline shift. The ?? ventricular system is normal in size and configuration. No intra or ?? extra-axial fluid collections are identified. There are no foci of ?? restricted diffusion. ? Normal vascular flow voids are noted in the basilar and carotid ?? arteries. ??The visualized paranasal sinuses are clear. ? MR/MR head/brain wo con ?? IMPRESSION: ? No acute intracranial abnormality. ? Electronically signed by: ??Kingston Chavis MD ??09/25/2024 07:31 AM EST ?? RP ? Dictated By: ?Kingston Chavis MD ? Signed By: ?<Electronically signed by Kingston Chavis MD in OV> ?09/25/24 0731 ? DD/ 1541 ? TD/TT: 09/24/24 1624 ? Newsp[place]: ? Procedure Note Rosey, Image - 09/25/2024 [place] [address] Magnetic Resonance Report Signed Patient: Hilda McmahanMR#: [id number] : 1965Acct:[id number] Age/Sex: 59 / FADM Date: 09/24/24 Loc: HO.MRI Attending Dr: Ginger Perez PERENNIAL HOUSE MANAGER Ordering Physician: Ginger Perez Date of Service: 09/24/24 Procedure(s): MR head/brain wo [facility] Accession Number(s): [id number] cc: Ginger Perez EXAMINATION: MR BRAIN WITHOUT IV CONTRAST HISTORY: tremor hands and face TECHNIQUE: Sagittal T1, and axial T1, FLAIR, T2, gradient echo, and diffusion weighted MR images of the brain were obtained. COMPARISON: Correlation is made with an unenhanced head CT dated 03/24/2024. FINDINGS: The examination is limited by patient motion. A few scattered periventricular and subcortical white matter hyperintensities are noted on the FLAIR and T2-weighted images which are nonspecific, but can be seen in the setting of small vessel ischemic disease. There is no mass effect or midline shift. The ventricular system is normal in size and configuration. No intra or extra-axial fluid collections are identified. There are no foci of restricted diffusion. Normal vascular flow voids are noted in the basilar and carotid arteries. The visualized paranasal sinuses are clear. MR/MR head/brain wo con IMPRESSION: No acute intracranial abnormality. Electronically signed by: Kingston Chavis MD 09/25/2024 07:31 AM EST RP Dictated By: Kingston Chavis MD Signed By: <Electronically signed by Kingston Chavis MD in OV> 09/25/24 0731 DD/ 1541 TD/TT: 09/24/24 1624 Newsp[place]: [facility] IMG MRI PROCEDURES Final Resu lt * (ABNORMAL) Lipid Panel, Standard (09/14/2024 1:25 PM EST) Triglycerides 123 <150 mg/dL [facility] Comment:Desirable Triglyceri de: less than 150 mg/dLBorderline High Triglyceride 150-199 mg/dLHigh Triglyceride: 200-499 mg/dLVery High Triglyceride: greater than or equal to 5OO mg/dL Cholesterol 146 <200 mg/dL [facility] Comment:Desirable Cholestero l: less than 200 mg/dLBorderline High Cholesterol: 200-239 mg/dLHigh Cholesterol: greater than 239 mg/dL LDL Cholesterol Calculated 83 <100 mg/dL [facility] Comment:Desirable LDL: less than 100 mg/dLNear Optimal/Above Optimal LDL: 110- 129 mg/dLBorderline High LDL: 130-159 mg/dLHigh LDL: 160-189 mg/dLVery High LDL: greater than or equal to 190 mg/dL HDL Cholesterol 39(L) >40 mg/dL [facility] Comment:Desirable HDL: great er than 40 mg/dL Note: This HDL assay may give artificially low results in patients with liver disease. Blood Venous blood specimen / Unknown 09/14/2024 1:25 PM EST 09/14/2024 4:07 PM EST [facility] LAB BLOOD ORDERABLES Final Re sult [facility] [address] [place] [phone] * Syphilis Screen (09/14/2024 1:25 PM EST) Pathologist [facility] Syphilis Screen Nonreactive Nonreactive [facility] Blood 09/14/2024 1:25 PM EST 09/14/2024 4:07 PM EST [facility] LAB BLOOD ORDERABLES Final Re sult Performing Organization Address [facility] Co de Phone Number [facility] [address] [place] [phone] * (ABNORMAL) TSH W/Reflex to FT4 (09/14/2024 1:25 PM EST) [facility] TSH reflex Free T4 0.12(L) 0.32 - 4.0 uIU/mL [facility] Blood Venous blood specimen / Unknown 09/14/2024 1:25 PM EST 09/14/2024 4:07 PM EST [facility] LAB BLOOD ORDERABLES Final Re sult Performing Organization Address [facility] de Phone Number [facility] [address] [place] [phone] * (ABNORMAL) CBC auto differential (09/14/2024 1:25 PM EST) [facility] White Blood Count 7.5 4.8 - 10.8 X10*3/uL [facility] Red Blood Count 5.24 4.20 - 5.50 X10*6/uL [facility] Hemoglobin 13.7 12.0 - 16.0 g/dl [facility] Hematocrit 43.5 37.0 - 47.0 % [facility] Mean Corpuscular Volume 83.0 80.0 - 98.0 fL [facility] Mean Corpuscular Hemoglobin 26.1(L) 27.0 - 33.0 pg [facility] Mean Corpuscular HGB Conc 31.5 31.0 - 35.0 g/dl [facility] Red Cell Distribution Width 14.3 11.0 - 16.0 % [facility] Platelet Count 220 160 - 400 X10*3/uL [facility] Mean Platelet Volume 12.2 9.4 - 12.3 fL [facility] Neutrophils Percent Auto 54.9 45 - 73 % [facility] Imm Gran Pct Auto 0.8(H) 0.0 - 0.4 % [facility] Lymphocytes Percent Auto 33.4 20 - 40 % [facility] Monocytes Percent Auto 6.4 2 - 11 % [facility] Eosinophils Percent Auto 4.2(H) 0 - 4 % [facility] Basophils Percent Auto 0.3 0 - 2 % [facility] NRBC Pct Auto 0.0 0.0 - 0.2 /100WBC [facility] Neutrophils Absolute Auto 4.1 2.0 - 8.3 x10*3/uL [facility] Imm Gran Abs Auto 0.06(H) 0.00 - 0.03 X10*3/uL [facility] Lymphocytes Absolute Auto 2.5 1.2 - 4.9 X10*3/uL [facility] Monocytes Absolute Auto 0.5 0.1 - 1.2 X10*3/uL [facility] Eosinophils Absolute Auto 0.3 0.0 - 0.4 X10*3/uL [facility] Basophils Absolute Auto 0.0 0.0 - 0.2 X10*3/uL [facility] NRBC Abs Auto 0.000 0.0 - 0.012 X10*3/uL [facility] Blood Venous blood specimen / Unknown 09/14/2024 1:25 PM EST 09/14/2024 4:07 PM EST [facility] LAB BLOOD ORDERABLES Final Re sult [facility] [address] [place] [phone] * HIV-1/2 Antigen and Antibodies, Fourth Generation, with Reflexes (09/14/2024 1:25 PM EST) HIV AB/AG Nonreactive Nonreactive [facility] Comment:HIV-1 p24 Ag and/or HIV-1/HIV-2 Ab not detected.A test result that is nonreactive does not exclude thepossibility of exposure to or infection with HIV-1 and/orHIV-2. Nonreactive results in this assay for individualswith prior exposure to HIV-1 and/or HIV-2 may be due toantigen and antibody levels that are below the limit ofdetection of this assay.The ServiceRelated HIV Ag/Ab Combo assay result andsupplemental assay results should be interpreted inconjunction with the patient's clinical presentation,history and other laboratory results. If the results areinconsistent with clinical evidence, additional testing issuggested to confirm the result. Blood Venous blood specimen / Unknown 09/14/2024 1:25 PM EST 09/14/2024 4:07 PM EST [facility] LAB BLOOD ORDERABLES Final Re sult [facility] [address] [place] [phone] documented in this encounter Visit Diagnoses Diagnosis Type 2 diabetes mellitus with hypoglycemia without coma, with long-term current use of insulin ([facility])- Primary Tremor of hands and face Decreased hearing of left ear documented in this encounter Additional Health Concerns Assessment Noted Time PHQ-9 Depression Total Score: 13 024 11:27 AM EDT documented as of this encounter Care Teams Transmission Systems Operator Relationship Specialty Start Date End Date [facility] [address] [place] [address] PCP - General Family Medicine 08/13/22 documented as of this encounter
--- OUTSIDE RECORDS SUMMARY | 2024-10-01 12:58 | XMS_ITS | Encounter Summary ---
Author Organization [employer] Address [address] [facility] [address] [place] [address] Care Team Providers Care Integration Lead Name Role Phone [facility] Primary Care Provider [phone] Reason for Visit * Reason Onset Date Comments Referral 07/19/2023 Encounter Details Date Type Department Care Team ([facility] st Contact Info) Description 07/19/2023 Telephone [facility] MED[facility]INE [address] [place], [place] [phone] [facility] [address] [place], [place] [phone] Referral Social History Tobacco Use Types Packs/Day Years [...] encounter Miscellaneous Notes * Telephone Encounter - Ruma Tabor - 07/19/2023 10:29 AM EST Tc from sarah with [facility] states [facility] has not received referral. Also requesting for referral to be sent to a different location due to no availability. Any questions, contact sarah at [phone] documented in this encounter Plan of Treatment Not on file documented as of this encounter Visit Diagnoses Not on filedocumented in this encounter Additional Health Concerns Assessment Noted Time PHQ-9 Depression Total Score: 16 023 9:09 AM EDT documented as of this encounter Care Teams Integration Lead Relationship Specialty Start Date End Date Ginger Perez FNP [address] [place] [phone] PCP - General Family Medicine 08/13/22 documented as of this encounter
--- OUTSIDE RECORDS SUMMARY | 2024-10-01 12:58 | XMS_ITS | Encounter Summary ---
Author Organization [email or web address] Address [address] [facility] [address] [place] [address] Care Team Providers Care Coupon Clerk Name Role Phone [facility] Primary Care Provider [phone] Reason for Visit * Reason Onset Date Comments Durable Medical Equipment 12/18/2022 Encounter Details Date Type Department Care Team ([facility] st Contact Info) Description 12/18/2022 Telephone [facility] [address] [place], [place] [phone] [facility] [address] [place] [address] Durable Medical Equipment Social History Tobacco Use [...] * Telephone Encounter - Mireya Colon - 12/19/2022 10:36 AM EDT TC to L&C and pads patient receives are the largest size for disposable bed pads. Enameler suggested a script for reusable bed pads as they are larger. A new script for reusable bed pads generated for signature. left with information for patient. * Telephone Encounter - Brenda Velarde - 12/18/2022 2:13 PM EDT Tc from [facility] requesting bigger bed pads . States pt is having hard time with the ones she haves . documented in this encounter Plan of Treatment Not on file documented as of this encounter Visit Diagnoses Not on filedocumented in this encounter Additional Health Concerns Assessment Noted Time PHQ-9 Depression Total Score: 0 12/12/19 23 3:58 PM EDT documented as of this encounter Care Teams Coupon Clerk Relationship Specialty Start Date End Date Ginger Perez FNP [address] [place] [id number] PCP - General Family Medicine 08/13/22 documented as of this encounter
--- OUTSIDE RECORDS SUMMARY | 2024-10-01 12:58 | XMS_ITS | Encounter Summary ---
Author Organization [employer] Address [address] [facility] [address] [place] [address] Care Team Providers Care Retail Inventory Control Clerk Name Role Phone [facility] Primary Care Provider [phone] Reason for Visit * Reason Onset Date Comments Referral 11/28/2023 Encounter Details Date Type Department Care Team ([facility] st Contact Info) Description 11/28/2023 Telephone [facility] [address] [place], [place] [phone] [facility] [address] [place], [place] [phone] Referral Social History Tobacco Use Types Packs/Day [...] Telephone Encounter - Natividad Stinson RN - 11/28/2023 12:[address] referral for podiatry for routine DM foot care if indicated. MOLASSES COLORING OPERATOR requests location: Antonio Nolasco DPM at [facility] * Telephone Encounter - Vernon Singleton - 11/28/2023 12:07 PM EDT Tc from [facility]/ MOLASSES COLORING OPERATOR with pt on the line giving authorization to speak to a nurse, states they are requesting a referral for podiatry at [address] [place] [id number] for cleaning and cutting nail, states pt is diabetic. # [phone] Please contact at [phone] documented in this encounter Plan of Treatment Not on file documented as of this encounter Visit Diagnoses Not on filedocumented in this encounter Additional Health Concerns Assessment Noted Time PHQ-9 Depression Total Score: 0 11/13/19 24 3:08 PM EDT documented as of this encounter Care Teams Retail Inventory Control Clerk Relationship Specialty Start Date End Date Ginger Perez FNP [address] [place] [phone] PCP - General Family Medicine 08/13/22 documented as of this encounter
--- OUTSIDE RECORDS SUMMARY | 2024-10-01 12:59 | XMS_ITS | Encounter Summary ---
Author Organization [email or web address] Address [address] [facility] [address] [place] [address] Care Team Providers Care Transportation Engineering Technician Name Role Phone [facility] Primary Care Provider [phone] Reason for Visit * Reason Comments Med Refill Encounter Details Date Type Department Care Team ([facility] st Contact Info) Description 05/11/2024 Refill [facility] [address] [place], [place] [phone] Roma Man MD [address] [place] [address] Onychomycosis Social History Tobacco Use Types Packs/Day [...] documented as of this encounter Care Teams Transportation Engineering Technician Relationship Specialty Start Date End Date Ginger Perez FNP [address] [place] [id number] PCP - General Family Medicine 08/13/22 documented as of this encounter
--- OUTSIDE RECORDS SUMMARY | 2024-10-01 12:59 | XMS_ITS | Encounter Summary ---
Author Organization [email or web address] Address [address] [facility] 7[address] [place] [address] Care Team Providers Care Silver Holloware Assembler Name Role Phone [facility] Primary Care Provider [phone] Encounter Details Date Type Department Care Team ([facility] st Contact Info) Description 02/21/2023 Telephone [facility] [address] [place], [place] [phone] [facility] [address] [place] [address] Social History Tobacco Use Types Packs/Day Years Used Date Smoking Tobacco: Never Smokeless Tobacco: Never Alcohol Use Standard Drinks/Week Comments Never 0 (1 standard drink = 0.6 oz pur e alcohol) PHQ-2 Answer Date Recorded Patient Health Questionnaire-2 Score 3 01/24/2023 Comments Unknown Sex and Gender Information Value Date Recorded Sex Assigned at Female 07/02/2022 10:15 AM EDT Legal Sex Female 12:34 PM EST Gender Identity Male 11/20/2022 2:47 PM EDT Sexual Orientation Something else 11/20/2022 2: 47 PM EDT documented as of this encounter Miscellaneous Notes * Telephone Encounter - Andriy Osoroi RN - 02/25/2023 9:57 AM EDT T/C to [phone] for below message, No answer. LVM to call back on [phone]. As per last message , PCP referred pt. For Physical therapy evaluation. * Telephone Encounter - Mirta Vladimir - 02/21/2023 3:11 PM EDT Tc from [facility] requesting a script for Albuterol for nebulize machine. Oracle Database Administrator check on med list but nothing. Also [facility] requesting a referral for Occupational Therapy and Physical Therapy in home. To contact [facility] at [phone] Perez documented in this encounter Plan of Treatment Not on file documented as of this encounter Visit Diagnoses Not on filedocumented in this encounter Additional Health Concerns Assessment Noted Time PHQ-9 Depression Total Score: 9 01/25/20 23 1:11 PM EDT documented as of this encounter Care Teams Silver Holloware Assembler Relationship Specialty Start Date End Date Ginger Perez FNP [address] [place] [phone] PCP - General Family Medicine 08/13/22 documented as of this encounter
--- OUTSIDE RECORDS SUMMARY | 2024-10-01 12:59 | XMS_ITS | Clinical Summary ---
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 fluticasone (Flonase Allergy Relief) 50 MCG/ACT nasal spray Administer 2 sprays into affected nostril(s) in the morning. Active cetirizine (ZyrTEC) 10 MG tablet Take 1 tablet by mouth in the morning. 021 Active atorvastatin (Lipitor) 40 MG tablet Take 1 tablet by mouth at bed time. 020 Active Blood Glucose Monitoring Suppl misc Active Alcohol Swabs (Alcohol Prep) padsIndications :Type 2 diabetes mellitus with hyperglycemia, with long-term current use of insulin ([facility]) Use as directed 100 each 11 023 Active Reguloid 57.6 % powderIndicatio ns:Constipation , unspecified constipation type MIX 1 TEASPOONFUL IN 8 OUNCES OF WATER OR JUICE AND DRINK EVERY MORNING 284 g 023 Active Blood Glucose Monitoring Suppl (GNP Easy Touch Glucose Meter) deviceIndicatio ns:Type 2 diabetes mellitus with hyperglycemia, with long-term current use of insulin ([facility]) Use as directed to check blood sugar four times daily 1 each 023 Active glucose blood test stripIndication s:Type 2 diabetes mellitus with hyperglycemia, with long-term current use of insulin ([facility]) Use as directed to check blood sugar four times daily 100 each 12 023 Active Advair Diskus 250-50 MCG/ACT aerosol powder INHALE 1 PUFF BY MOUTH TWICE DAILY IN THE MORNING AND IN THE EVENING APPROXIMATELY 12 HOURS APART. RINSE MOUTH AFTER USING. 60 each 2 023 Active TRUEplus Lancets 33G miscIndications :Type 2 diabetes mellitus with hyperglycemia, with long-term current use of insulin ([facility]) USE TO TEST BLOOD SUGAR FOUR TIMES DAILY 100 each 11 023 Active albuterol (2.5 MG/3ML) 0.083% nebulizer solutionIndicat ions:Moderate persistent asthma without complication INHALE 1 AMPULE USING A NEBULIZER EVERY 6 HOURS NEEDED FOR WHEEZING 90 mL 11 024 Active Blood Pressure kitIndications: Type 2 diabetes mellitus with hyperglycemia, with long-term current use of insulin ([facility]) Use as directed 1 kit 024 Active olmesartan (BENIcar) 5 MG tabletIndicatio ns:Primary hypertension Take 2 tablets (10 mg) by mouth in the morning. 60 tablet 11 024 2024 Active lidocaine (Lidoderm) 5 % patch APPLY 1 PATCH TOPICALLY TO SKIN, LEAVE ON FOR 12 HOURS AND OFF FOR 12 HOURS DIRECTED 30 patch 1 024 Active Neomycin-Polymy bill-HC 1 % solutionIndicat ions:Otitis of left ear Administer 3 drops into affected ear(s) 4 times daily. 10 mL 024 Active clonazePAM (KlonoPIN) 1 MG tabletIndicatio ns:Mixed anxiety and depressive disorder Take 1 tablet (1 mg) by mouth 3 times daily. 90 tablet 5 024 Active gabapentin (Neurontin) 300 MG capsuleIndicati ons:Mixed anxiety and depressive disorder Take 1 capsule by mouth every morning and every noon. Also take Gabapentin 600 mg 2 talets at bedtime 180 capsule 2 024 Active melatonin 5 MG tabletIndicatio ns:Mixed anxiety and depressive disorder TAKE 1 TABLET BY MOUTH EVERY EVENING 2-3 HOURS BEFORE BEDTIME. 90 tablet 3 024 Active prazosin (Minipress) 5 MG capsuleIndicati ons:Mixed anxiety and depressive disorder Take 1 capsule (5 mg) by mouth at bedtime. 90 capsule 2 024 Active Alcohol Swabs (Alcohol Prep) 70 % padsIndications :Type 2 diabetes mellitus with hyperglycemia, with long-term current use of insulin (CMS/HCC) USE DIRECTED FIVE TIMES DAILY 100 each 11 Active tiZANidine (Zanaflex) 4 MG tabletIndicatio ns:Muscle spasm TAKE 1 TABLET BY MOUTH EVERY 8 HOURS NEEDED. DO NOT EXCEED 3 TABLETS IN 24 HOURS 90 tablet 11 024 Active albuterol (Ventolin HFA) 108 (90 Base) MCG/ACT inhaler INHALE 2 PUFFS BY MOUTH FOUR TIMES DAILY NEEDED 18 g 11 024 Active oxyCODONE (Roxicodone) 5 MG immediate release tabletIndicatio ns:Low back pain at multiple sites Take 1 tablet (5 mg) by mouth every 6 (six) hours if needed for severe pain. 12 tablet 024 Active GaviLAX 17 GM/SCOOP powderIndicatio ns:Constipation , unspecified constipation type DISSOLVE 17 GRAM (1 CAPFUL) IN 8 OUNCES OF JUICE OR WATER AND TAKE BY MOUTH TWICE DAILY FOR 3 DAYS DIRECTED 510 g 2 024 Active Tirzepatide (Mounjaro) 5 MG/0.5ML solution auto-injector Inject 5 mg under the skin 1 (one) time per week. 2 mL 3 024 Active Jardiance 10 MG Take 10 mg by mouth Once per day. Active propranolol (Inderal) 40 MG tablet TAKE 1 TABLET BY MOUTH TWICE DAILY 180 tablet 1 024 Active cholecalciferol VITAMIN D (Vitamin D-3) 50 MCG (2000 UT) tabletIndicatio ns:Chronic pain syndrome TAKE 1 TABLET BY MOUTH EVERY DAY IN THE MORNING 90 tablet 1 024 Active diazePAM (Valium) 5 MG tablet Take 1 tablet (5 mg) by mouth 1 (one) time for 1 dose. Please take medication 30 mins PRIOR to MRI scheduled on 09/24/24. Do not start before September 22, 2024. 1 tablet 025 Active glucose blood (FREESTYLE LITE) test strip 1 strip every 8 (eight) hours. 021 2024 Discontinued FreeStyle lancets 1 each by Other route if needed. Use as instructed 2024 Discontinued Blood Pressure kit 2024 Discontinued Pentips 32G X 4 MM misc USE DAILY WITH INSULIN 100 each 3 023 2024 Discontinued gabapentin (Neurontin) 600 MG tabletIndicatio ns:Mixed anxiety and depressive disorder Take 1 tablet (600 mg) by mouth at bedtime. Also take Gabapentin 300 mg every morning and every noon 90 tablet 2 024 2024 Discontinued Pentips 32G X 4 MM miscIndications :Type 2 diabetes mellitus with hyperglycemia, with long-term current use of insulin ([facility]) USE TO INJECT INSULIN DAILY DIRECTED 100 each 11 024 2024 Discontinued insulin degludec (Tresiba FlexTouch) 200 UNIT/ML injection INJECT 10 UNITS SUBCUTANEOUSLY EVERY DAY 9 mL 3 024 2024 Discontinued Hospital, Clinic, or Other Facility Administered Medication Ordered Dose Route Frequency Start Date End Date Status lidocaine (Xylocaine) 2 % injection 40 mgIndications:Vulvar lesion,Encounter for incision and drainage procedure 40 mg ID Once 12/03/2023 Ac tive Active Problems Problem Noted Date Diagnosed Date Physical deconditioning 05/11/2024 Gait instability 05/11/2024 Renal cyst 02/25/2024 Renal calculi 11/18/2023 Chronic liver disease 10/03/2023 Overview (10/03/2023): ? 03/13/2023- [facility]. Reports with hepatic steatosis with evidence of advanced chronic liver disease ? 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 EEG's normal. Per neurology notes, possible dyskenisa s/t hx of antipsychotic medications which patient is no longer taking. Not currently taking any anti- seizure medications. No seizure episodes >2 months. Episodes triggered by emotional stress. Bariatric surgery status 09/29/2022 Overview (09/29/2022): ? ? Lap band was removed approx 8 years ago in [facility]; repeat lap band through [facility] without weight loss. Very upset by experience at [facility]. Currently working with [facility] weight mgnmt for removal of lap band. Assessment & Plan (05/03/2023 10:30 AM EDT): ?? Details of current weight mngmt plan through [facility] unclear. Will request notes and follow up as indicated Obstructive sleep apnea 09/29/2022 Overview (06/04/2023): ?? Compliant with BiPAP ?? Followed by [facility] neurology and sleep clinic. Dr. Temple Gender dysphoria in adult 09/29/2022 Overview (09/29/2022): ?? Interested in pursuing top and bottom gender reassignment surgery ?? Not a candidate for hormone therapy Healthcare maintenance 09/29/2022 Overview (02/25/2024): Mammo: 07/2022--Birads 2 Pap: HPV negative 2019, no cytology on record. C-scope: Upcoming colonoscopy [facility] GI BMD: Routine age 63 Chronic pain 09/29/2022 Overview (09/29/2022): all over previously seen by pain mngmt; not interested in injections. Tizanidine PRN. Gabapentin 900mg in evening. Lidocaine patches PRN. Currently has PT 2x/weekly for chronic knee pain. Assessment & Plan (05/03/2023 10:34 AM EDT): ?? Pt declines referral to PT or pain mngmt ?? Suspect underlying fibromyalgia ?? Counseled patient or risks of taking non-prescribed medication and advised patient not to continue taking friend's suboxone. Patient verbalizes understanding and agrees to plan ?? Pt does have remote hx of JABARI. Declines referral to [facility] at this time however will continue to discuss this as option for dual mngmt of chronic pain and JABARI at follow up. ?? Pt has narcan at home Chronic post-traumatic stress disorder 0 Mixed hyperlipidemia 05/25/2020 Diabetes mellitus 05/25/2020 Coarse tremors 11/12/2019 Hypertensive disorder 08/24/2014 Overview (05/03/2023): ?? Olmesartan 5mg daily ?? Propranolol 40mg b.i.d for tachycardia Maintenance: BMP: 09/2022 Lipid Panel: 09/2022 EKG: Obtain baseline at f/u - Aerobic exercise to reduce BP. Initial goal of 30 min walk 3-5x/week. Increase as tolerated. - low-sodium diet (goal: <2g/day) and heart healthy diet such as DASH to reduce BP and prevent ASCVD. - Home BP monitoring 1-2 x day with goal of <140/90. - Seek immediate medical attention for chest pain, palpitations, SOB, syncope, or sudden changes in mental status. - Do not change or discontinue current prescriptions without first consulting health care provider Assessment & Plan (05/03/2023 10:09 AM EDT): ?? Continue current regimen ?? BP well controlled ?? Plan to repeat labs at follow up in 1 month Assessment & Plan (12/13/2022 10:26 AM EDT): ?? STOP lisinopril hydrochlorothiazide ?? Will continue propranolol 40mg b.i.d for panic a/w palpitations as needed. Hold if HR < 60bpm or BP <100/60 Assessment & Plan (08/13/2022 4:50 PM EST): -Noted hypotension during home readings on current regimen -Attempted taper of propranolol, although causing tachycardia on days when pt not taking medication -Shared-decision making with patient and VNA Nhi regarding med changes: -CONTINUE propranolol 40mg BID -DECREASE to lisinopril-hydrochlorothiazide 10mg-12.5mg -ED/urgent care precautions reviewed -Continue recording blood pressure readings at home and bring to follow up appointments. Monitoring by pt and VNA, schedule visit with PCP for TP/BP F/u in 1 month, sooner as needed. Asthma 08/18/2012 Dyslipidemia 08/18/2012 Overview (09/29/2022): ?? Atorvastatin 40mg Mixed anxiety and depressive disorder 04/18/2012 Assessment & Plan (03/16/2024 1:25 PM EDT): With hx of psychotic features. Pt has had numerous antidepressants, antipsychotics and mood stabilizers, as well as antiepileptics for seizure disorder. It has been difficult to control symptoms, and patient had significant tremor which was concerning for medication adverse effect. He is doing better in terms of mood and sleep. Recently had repeat bariatric surgery and has lost weight. Has regular F/U with specialists. Also regular F/U with therapist who may be able to refer to agency prescriber. Meanwhile, no med changes: Continue Gabapentin to 600 -1200 mg at bedtime Continue Gabapentin 300 mg in am and 300 mg at noon. Continue Clonazepam 1 mg TID, Prazosin 5 mg at bedtime, and Melatonin 5 mg at bedtime prn. Since this provider will be retiring, pt is now referred back to PCP for medication management. Any issues or concerns, contact [facility]. All his questions were answered and I have wished him well. He agrees with the plan. Assessment & Plan (01/06/2024 2:29 PM EDT): With hx of psychotic features. Pt has had numerous antidepressants, antipsychotics and mood stabilizers, as well as antiepileptics for seizure disorder. It has been difficult to control symptoms, and patient had significant tremor which was concerning for medication adverse effect. Patient is depressed, anxious, with intermittent SI (no intent currently). Very poor sleep including sleepwalking. It is essential that he not be left alone, encouraged to request increased [employer] MACHINE TENDER hours. Will increase bedtime Gabapentin to 1200 mg. Continue Gabapentin 300 mg in am and 300 mg at noon. Continue Clonazepam 1 mg TID, Prazosin 5 mg at bedtime, and Melatonin 5 mg at bedtime prn. Pt will F/U with therapist and has requested referral to agency psychiatric prescriber. Meanwhile, F/U with me in 1 month. Patient agrees with the plan. Assessment & Plan (12/05/2023 3:16 PM EDT): With hx of psychotic features. Pt has had numerous antidepressants, antipsychotics and mood stabilizers, as well as antiepileptics for seizure disorder. It has been difficult to control symptoms, and patient had significant tremor which was concerning for medication adverse effect. Patient is currently feeling depressed, hopeless, tired. Has had SI with plan (taking pills) and yesterday intended to act upon it, but was stopped by family member. He is not left alone, with one of family members and/or 1 of 2 FINISH MACHINE TENDER's always present. Patient was able to contract for safety even in event he was alone, and promises to call Crisis. Has also agreed with therapist about this,, and has F/U with therapist in a few days. Will continue Gabapentin 300 mg 1 in am, 1 at noon, and 3 capsules at bedtime. Continue Clonazepam 1 mg TID, Prazosin 5 mg at bedtime, and Melatonin 5 mg at bedtime prn. On 10/08/2023 provider informed pt that I would be retiring and suggested he speak with therapist about referral to agency prescriber. We did not discuss my planned fpc today. F/U with me in 1 month. Patient agrees with the plan. Assessment & Plan (10/08/2023 11:49 AM EST): With hx of psychotic features. Pt has had numerous antidepressants, antipsychotics and mood stabilizers, as well as antiepileptics for seizure disorder. It has been difficult to control symptoms, and patient had significant tremor which was concerning for medication adverse effect. Patient continues to struggle with difficult interpersonal relationships, but has learned some coping skills. Feels current medications are still effective and will continue Gabapentin 300 mg 1 in am, 1 at noon, and 3 capsules at bedtime. Continue Clonazepam 1 mg TID, Prazosin 5 mg at bedtime, and Melatonin 5 mg at bedtime prn. Continue close follow up with therapist. Today 10/08/2023 provider informed pt that I would be retiring and suggested he speak with therapist about referral to agency prescriber. Meanwhile, F/U with me in 2 months. Patient agrees with the plan. Assessment & Plan (03/14/2023 11:01 AM EDT): With hx of psychotic features. Pt has had numerous antidepressants, antipsychotics and mood stabilizers, as well as antiepileptics for seizure disorder. It has been difficult to control symptoms, and patient had significant tremor which was concerning for medication adverse effect. Frustrated by chronic pain, has not been willing to consider injections. Will F/U with PCP to discuss. Otherwise anxiety/depression are reasonably well controlled and will continue Gabapentin 300 mg 1 in am, 1 at noon, and 3 capsules at bedtime. Continue Clonazepam 1 mg TID, Prazosin 5 mg at bedtime, and Melatonin 5 mg at bedtime prn. Continue close follow up with therapist. F/U with me in 6-8 weeks. Pt. agrees with the plan. Assessment & Plan (01/24/2023 2:20 PM EDT): With hx of psychotic features. Pt has had numerous antidepressants, antipsychotics and mood stabilizers, as well as antiepileptics for seizure disorder. It has been difficult to control symptoms, and patient had significant tremor which was concerning for medication adverse effect. Not doing as well with increased depression, anxiety with panic attacks, and irritability. Not sleeping well and does not have CPAP. Will increase Gabapentin: continue 300 mg 3 capsules at bedtime, add 1 capsule in am x 2 weeks, then also add 1 capsule mid-day. Continue Clonazepam 1 mg TID, Prazosin 5 mg at bedtime, and Melatonin 5 mg at bedtime prn. Continue close follow up with therapist. F/U with me in 6 weeks. Pt. agrees with the plan. Assessment & Plan (11/27/2022 12:36 PM EDT): With hx of psychotic features. Pt has had numerous antidepressants, antipsychotics and mood stabilizers, as well as antiepileptics for seizure disorder. It has been difficult to control symptoms, and patient had significant tremor which was concerning for medication adverse effect. Now grieving recent of aunt who raised him. Having some visual hallucinations of the aunt, but does not find this distressing, no indication for antipsychotic medication at this time. Continue current medications and close follow up with therapist. F/U with me in 4-6 weeks. Pt. agrees with the plan. Assessment & Plan (09/29/2022 3:55 PM EST): ?? START melatonin 5mg 2-3 hours before bed ?? Pt takes tizanidine for chronic pain mngmt; advised to time last tablet for 30 minutes before bed ?? Reviewed sleep hygiene techniques with initial goal of setting a consistent bedtime for the next 2 weeks. Pt does not feel he can sleep without the television on, but is willing to try a consistent bed time and set an alarm consistently in the morning ?? Continue to follow up with therapist and psychiatrist as scheduled ?? Continue prazosin nightly Assessment & Plan (08/21/2022 11:34 AM EST): With hx of psychotic features. Pt has had numerous antidepressants, antipsychotics and mood stabilizers, as well as antiepileptics for seizure disorder. It has been difficult to control symptoms, and patient had significant tremor which was concerning for medication adverse effect. Doing well emotionally, continue current medications and close follow up with therapist. Regarding sleep problem, it is essential that he gets his new CPAP as soon as possible. Reviewed that it would not be a good idea to add extra sedating medications at bedtime that would compromise breathing. F/U with me in 6-8 weeks. Pt. agrees with the plan. Obesity 04/18/2012 Resolved Problems Problem Noted Date Diagnosed Date Resolved Date Onychomycosis 02/13/2024 02/25/2024 Great toe pain, left 02/13/2024 024 Acute otitis media 02/13/2024 4 Otitis of left ear 02/13/2024 4 Assessment & Plan (02/13/2024 12:10 PM EDT): Patient declines oral medication Ear drops prescribed COVID-19 virus infection 08/19/2023 Assessment & Plan (08/19/2023 5:53 AM EST): Pt with mx comorbidities who reports 3 days of respiratory symptoms and tested + at home for COVID 19 Pt has concerning symptoms at this time with ongoing pressure chest pain since yesterday as well reports 2 seizure activities last night , reports ongoing diarrhea and several times of vomit yesterday Given currently clinical presentation advised pt to go to ED immediately for further evaluation and tx Pt and daughter agreed w plan and states daughter will call ambulance now Headache 05/25/2020 02/25/2024 Seizures 11/12/2019 08/31/2022 Diabetes mellitus 04/18/2012 07/10/2024 Overview (11/18/2023): Mounjaro 7.5mg subcutaneous weekly Tresiba 28 units every morning Jardiance 25 mg daily Followed by [facility] [employer] Has dexcom CGM Metformin stopped due to hx of elevated lactic acid Current A1c: - 8.4 09/25/2022 - 8.8 12/11/2022 Statin: Yes ASA: No DALE/ARB: Yes Encouraged regular aerobic exercise for improved glycemic control Encouraged daily foot checks Encouraged lean protein snacks and to avoid foods high in sugar and simple carbohydrates Treatment Goals: A1c goal: <7% FBG goal: <130 2 hour post prandial goal: <180 Assessment & Plan (06/17/2023 2:40 PM EDT): Lab Results Component Value Date HGBA1C 8.9 (A) 04/12/2023 ?? STOP trulicity ?? START mounjaro 2.5mg ?? Continue to follow as scheduled with [facility] DM educator ?? Will task RN's to contact patients healthcare administration intern to ensure that VNA is aware of med change. ?? Strongly encouraged patient to continue with [employer]ISH [employer]ACHINE TENDER/VNA services due to multiple chronic conditions and patient's difficulty self managing care. Patient verbalizes understanding and agrees to plan Assessment & Plan (05/03/2023 10:15 AM EDT): ?? Continue to work with [facility] DM educator Henny-will request records and recent blood glucose log with plan to titrate up tresiba if no concern re hypoglycemia based on repot. Unfortunately patient does not have dexcom sensor in office today or home BS log. ?? Will submit PA request for mounjaro given max dose of trulicity Assessment & Plan (12/13/2022 10:27 AM EDT): Lab Results Component Value Date HGBA1C 8.8 (A) 12/11/2022 ?? INCREASE jardiance 25mg daily Assessment & Plan (09/29/2022 3:56 PM EST): ?? A1c improving! ?? Continue current regimen Assessment & Plan (08/31/2022 9:41 AM EST): ?? Increase tresiba to 28 units subcutaneous daily ?? Continue trulicity 3mg subcutaneous weekly until 4.5mg subcutaneous is available ?? Continue metforming 1000mg b.i.d ?? Referral placed back to Endocrinology to establish with new provider for ongoing care Assessment & Plan (08/13/2022 4:43 PM EST): -Continue with current medication regimen, denies symptoms of hypoglycemia or hyperglycemia -Follow up with PCP Epilepsy 04/18/2012 09/29/2022 Encounters Date Type Department Care Team Description 10/01/2024 Orders Only [facility] [address] [place] [id number] Ginger Perez FNP 09/29/2024 Telephone [facility] [address] [place] [address] Marisabel Kaye, RN Results 09/28/2024 Orders Only [facility] [address] [place] [address] Ginger Perez FNP Abnormal TSH (Primary Dx) 09/15/2024 Refill [facility] [address] [place] [address] Ginger Perez FNP 09/15/2024 Telephone [facility] [address] [place] [address] Angelic Keys, RN Care Coordination 09/14/2024 11:30 AM EST Office Visit [facility] [address] [place] [address] Ginger Perez FNP Type 2 diabetes mellitus with hypoglycemia without coma, with long-term current use of insulin ([facility]) (Primary Dx); Tremor of hands and face; Decreased hearing of left ear 09/14/2024 Orders Only [facility] [address] [place] [address] Ginger Perez FNP 09/14/2024 Travel 09/08/2024 10:15 AM EST Office Visit [facility] [address] [place] [address] Corbin Hughes CNM Postmenopausal bleeding (Primary Dx); Epidermal cyst of vulva 09/08/2024 Travel 08/18/2024 Telephone [facility] [address] [place] [address] [facility] Nurse Triage 08/13/2024 Orders Only GENERIC EXTERNAL DATA DEPARTMENT Provider, Generic External Data 08/06/2024 Refill [facility] [address] [place] [address] [facility] Chronic pain syndrome 07/10/2024 12:00 PM EST Office Visit [facility] [address] [place] [address] Donna Dow DO Dizziness (Primary Dx); Type 2 diabetes mellitus with hypoglycemia without coma, with long-term current use of insulin ([facility]) 07/10/2024 Telephone [facility] [address] [place] [address] Frida Fitzpatrick, RN Nurse Triage 07/10/2024 Travel 2024 Telephone [facility] [address] [place] [address] [facility] Telephone Call 07/02/[address] [phone] [facility] Nurse Triage from Last 3 Months Immunizations Name Administration Dates Next Due Hep B, adult 06/25/2019,05/06/2019 Influenza injectable quadriv alent IIV4 with preservative 05/24/2016 Influenza injectable quadriv alent preservative free 06/05/2023,06/21/2022,07/06/2019 Influenza, IIV3, injectable 07/22/2014,0 05/31/2011,06/30/2008,06/05,08/02/2003,07/08/2001 Influenza, Split (incl. mark fied surface antigen) 06/03/2012 Pneumococcal Conjugate PCV 20 04/12/2023 Pneumococcal Polysaccharide PPSV23 04/20/2012, TD (adult), 2 Lf tetanus tox oid, preservative free, adsorbed 06/21/2022 Tdap 02/07/2010 Zoster, Recombinant 04/12/2023 Family History Medical History Relation Name Comments Breast cancer Maternal Grandmother Leukemia Sister 1 Breast cancer Sister 2 Relation Name Status Comments Maternal Grandmother Sister 1 Sister 2 Unknown Social History Tobacco Use Types Packs/Day Years Used Date Smoking Tobacco: Never Passive Smoke Exposure: Never Smokeless Tobacco: Never Tobacco Cessation:Counseling Given: Not Answered Alcohol Use Standard Drinks/Week Comments Never 0 [...] Something else 11/20/2022 2: 47 PM EDT Last Filed Vital Signs Vital Sign Reading Time Taken Comments Blood Pressure 103/60 09/14/2024 11:41 AM EST Pulse 76 09/14/2024 11:41 AM EST Temperature 36.4 ??C (97.6 ??F) 09/14/2024 1 1:41 AM EST Respiratory Rate 18 09/14/2024 11:4 1 AM EST Oxygen Saturation 100% 09/08/2024 9:25 AM EST Inhaled Oxygen Concentration - - Weight 91.5 kg (201 lb 12.8 oz) 025 11:41 AM EST Height 157.5 cm (5' 2 ) 09/14/2024 11:4 1 AM EST Body Mass Index 36.91 09/14/2024 11:41 AM EST Plan of Treatment Health Maintenance Due Date Last Done Comments CT Colonography 1965 Colonoscopy 1965 Colorectal Cancer Screening 1965 FIT DNA/Cologuard 1965 FIT 1965 FOBT 1965 Sigmoidoscopy 1965 Diabetes: Foot Exam 1973 Eye Exam 1973 Hepatitis A Vaccines (1 of 2 - Risk 2-dose series) 1982 Zoster Vaccines (2 of 2) 06/07/2023 04/12/2023 RSV Patients and Patients Aged 60 years or older (1 - Risk 60-74 years 1-dose series) 2023 COVID-19 Vaccine ( season) 2024 Influenza Vaccine (#1) 2024 3, 06/21/2022, 07/06/2019, Additional history exists Depression Monitoring (PHQ-9) 09/16/2024 03/16/2024, 03/16/2024 Alcohol/Substance Use Screening 10/03/2024 10/03/2023 SDOH Screening 10/03/2024 10/03/2023 Diabetes: Hemoglobin A1C 11/10/2024 024, 02/17/2024, 11/13/2023, Additional history exists Depression Screening 03/16/2025 03/16/2024, 03/16/20 24 Mammogram 08/27/2025 08/27/2024, 07/03, 2022, Additional history exists Lipid Panel 09/14/2025 09/14/2024, 06/03, 09/25/2022, Additional history exists Tobacco Screening 09/15/2025 09/15/2024 Cervical Cancer Screening 09/08/2029 HPV/Cotest 09/08/2029 09/09/2019 Pap Smear 09/08/2029 09/08/2024, 09/09/2019 DTaP/Tdap/Td Vaccines (3 - Td or Tdap) 06/21/2032 06/21/2022, 02/07/2010 Hepatitis B Vaccines Discontinued 06/25/2019, 05/06/20 Hepatitis C Screening Completed 09/25/2022 Pneumococcal Vaccine: 50+ Years Completed 04/12/2023, 04/20/2012, 06/05/2007 HIV Screening Completed 10/01/2024, 09/02, 09/25/2022 HIB Vaccines Aged Out No longer eligi ble based on patient's age to complete this topic HPV Vaccines Aged Out No longer eligi ble based on patient's age to complete this topic IPV Vaccines Aged Out No longer eligi ble based on patient's age to complete this topic Meningococcal Vaccine Aged Out No dayton bell eligible based on patient's age to complete this topic RSV under 20 months Aged Out No longe r eligible based on patient's age to complete this topic Rotavirus Vaccines Aged Out No longer eligible based on patient's age to complete this topic Procedures Procedure Name Priority Date/Time Associated Diagnosis Comments T4, FREE Routine 10/01/2024 9:58 AM EST TSH W/REFLEX TO FT4 Routine 10/01/2024 9 :58 AM EST Abnormal TSH HIV 1/2 ANTIGEN/ANTIBODY, FOURTH GENERATION W/RFL Routine 10/01/2024 9:58 AM EST Type 2 diabetes mellitus with chronic kidney disease, with long-term current use of insulin, unspecified CKD stage (CMS/HCC) MR BRAIN WO CONTRAST Routine 09/24/2024 3:41 PM EST Tremor of hands and face T4, FREE Routine 09/14/2024 1:25 PM EST LIPID PANEL, STANDARD Routine 09/14/2024 1:25 PM EST Type 2 diabetes mellitus with hypoglycemia without coma, with long-term current use of insulin ([facility]) SYPHILIS SCREEN Routine 09/14/2024 1:25 PM EST Tremor of hands and face TSH W/REFLEX TO FT4 Routine 09/14/2024 1 :25 PM EST Tremor of hands and face CBC WITH AUTO DIFFERENTIAL Routine 09/14/2024 1:25 PM EST Tremor of hands and face HIV 1/2 ANTIGEN/ANTIBODY, FOURTH GENERATION W/RFL Routine 09/14/2024 1:25 PM EST Tremor of hands and face CHLAMYDIA/N. GONORRHOEAE AND T. VAGINALIS RNA, QUAL,TMA Routine 09/08/2024 9:30 AM EST Postmenopausal bleeding PAP SMEAR Routine 09/08/2024 9:30 AM EST Postmenopausal bleeding BI MAMMOGRAM SCREENING TOMOSYNTHESIS BILATERAL Routine 08/27/2024 1:05 PM EST Breast cancer screening by mammogram ETHANOL Routine 08/13/2024 5:21 AM EST MAGNESIUM Routine 08/13/2024 5:21 AM EST BASIC METABOLIC PANEL Routine 08/13/2024 5:21 AM EST HEPATIC FUNCTION PANEL Routine 08/13/2024 5:21 AM EST DRUG MONITOR, PANEL 1, SCREEN, URINE Routine 08/13/2024 5:21 AM EST POCT HEMOGLOBIN Routine 07/10/2024 1:02 PM EST Dizziness POCT GLUCOSE Routine 07/10/2024 1:00 PM EST Dizziness POCT GLYCATED HEMOGLOBIN, TOTAL Routine 05/13/2024 12:23 PM EDT Type 2 diabetes mellitus with chronic kidney disease, with long-term current use of insulin, unspecified CKD stage (CMS/HCC) HEPATITIS C AB W/REFL TO HCV RNA, QN, PCR Routine 09/25/2022 12:06 PM EST Healthcare maintenance ZZZ HISTORICAL HPV MRNA E6/E7 Routine 09/09/2019 11:55 AM EST from Last 3 Months or Most Recently Relevant to Health Maintenance Results * (ABNORMAL) TSH W/Reflex to FT4 (10/01/2024 9:58 AM EST) Only the most recent of2 resultswithin the time period is included. TSH reflex Free T4 0.27(L) 0.32 - 4.0 uIU/mL [facility] Blood Venous blood specimen / Unknown 10/01/2024 9:58 AM EST 10/01/2024 11:04 AM EST [facility] LAB BLOOD ORDERABLES Final Re sult [facility] [address] [place] [phone] * HIV-1/2 Antigen and Antibodies, Fourth Generation, with Reflexes (10/01/2024 9:58 AM EST) Only the most recent of2 resultswithin the time period is included. HIV AB/AG Nonreactive Nonreactive [facility] Comment:HIV-1 p24 Ag and/or HIV-1/HIV-2 Ab not detected.A test result that is nonreactive does not exclude thepossibility of exposure to or infection with HIV-1 and/orHIV-2. Nonreactive results in this assay for individualswith prior exposure to HIV-1 and/or HIV-2 may be due toantigen and antibody levels that are below the limit ofdetection of this assay.The [email or web address] HIV Ag/Ab Combo assay result andsupplemental assay results should be interpreted inconjunction with the patient's clinical presentation,history and other laboratory results. If the results areinconsistent with clinical evidence, additional testing issuggested to confirm the result. Blood Venous blood specimen / Unknown 10/01/2024 9:58 AM EST 10/01/2024 11:04 AM EST [facility] CLOTH FINISHING RANGE OPERATOR LAB BLOOD ORDERABLES Final Re sult Performing Organization Address [facility] Co de Phone Number [facility] [address] [place] [address] [phone] * T4, Free (10/01/2024 9:58 AM EST) Only the most recent of2 resultswithin the time period is included. Free T4 (Free Thyroxine) 0.91 0.71 - 1.85 ng/dL [facility] 10/01/2024 9:58 AM EST 10/01/2024 11:04 AM EST [facility] CLOTH FINISHING RANGE OPERATOR LAB BLOOD ORDERABLES Final Re sult Performing Organization Address [facility] Co de Phone Number [facility] [address] [place] [phone] * MR Brain w/o Contrast (09/24/2024 3:41 PM EST) Anatomical Region Laterality Modality Brain Magnetic Resonan ce 09/24/2024 3:41 PM EST Narrative 09/25/2024 7:34 AM EST ? [facility] ?[address] ?[place] [address] ? Magnetic Resonance Report ? Signed ? Patient: Mcmahan,Hilda ?MR#: [id number] ?? 5104 ? : 1965 ?Acct:[id number] ? Age/Sex: 59 / F ?ADM Date: /23/25 ? Loc: HO.MRI ? Attending Dr: Ginger DUARTE ? Ordering Physician: Ginger Perez ?? Date of Service: 09/24/24 ?? Procedure(s): MR head/brain wo con ?? Accession Number(s): [id number] ? cc: Ginger Perez ? EXAMINATION: ??MR [...] DD/ 1541 ? TD/TT: 09/24/24 1624 ? Wellness Rn: ? Procedure Note Mendoza Currie - 09/25/[address] [address] Magnetic Resonance Report Signed Patient: Susan McmahanRaisa#: [id number] : 1965Acct:[id number] Age/Sex: 59 / FADM Date: 09/24/24 Loc: HO.MRI Attending Dr: Ginger DUARTE Ordering Physician: Ginger Perez Date of Service: 09/24/24 Procedure(s): MR head/brain wo con Accession Number(s): [id number] cc: [place],[facility] EXAMINATION: MR BRAIN WITHOUT IV CONTRAST HISTORY: [...] 09/25/24 0731 DD/ 1541 TD/TT: 09/24/24 1624 Wellness Rn: Ginger Mondragonside GERALD IMG MRI PROCEDURES Final Resu lt * Syphilis Screen (09/14/2024 1:25 PM EST) Syphilis Screen Nonreactive Nonreactive [facility] Blood 09/14/2024 1:25 PM EST 09/14/2024 4:07 PM EST [facility] LAB BLOOD ORDERABLES Final Re sult [facility] [address] [place] [phone] * (ABNORMAL) CBC auto differential (09/14/2024 1:25 PM EST) White Blood Count 7.5 4.8 - 10.8 X10*3/uL [facility] Red Blood Count 5.24 4.20 - 5.50 X10*6/uL [facility] Hemoglobin 13.7 12.0 - 16.0 g/dl [facility] Hematocrit 43.5 37.0 - 47.0 % [facility] Mean Corpuscular Volume 83.0 80.0 - 98.0 fL [facility] Mean Corpuscular Hemoglobin 26.1(L) 27.0 - 33.0 pg [facility] Mean Corpuscular HGB Conc 31.5 31.0 - 35.0 g/dl [facility] Red Cell Distribution Width 14.3 11.0 - 16.0 % [facility] Platelet Count 220 160 - 400 X10*3/uL [facility] Mean Platelet Volume 12.2 9.4 - 12.3 fL [facility] Neutrophils Percent Auto 54.9 45 - 73 % [facility] Imm Gran Pct Auto 0.8(H) 0.0 - 0.4 % [facility] Lymphocytes Percent Auto 33.4 20 - 40 % [facility] Monocytes Percent Auto 6.4 2 - 11 % [facility] Eosinophils Percent Auto 4.2(H) 0 - 4 % [facility] Basophils Percent Auto 0.3 0 - 2 % [facility] NRBC Pct Auto 0.0 0.0 - 0.2 /100WBC [facility] Neutrophils Absolute Auto 4.1 2.0 - 8.3 x10*3/uL [facility] Imm Gran Abs Auto 0.06(H) 0.00 - 0.03 X10*3/uL [facility] Lymphocytes Absolute Auto 2.5 1.2 - 4.9 X10*3/uL [facility] Monocytes Absolute Auto 0.5 0.1 - 1.2 X10*3/uL [facility] Eosinophils Absolute Auto 0.3 0.0 - 0.4 X10*3/uL [facility] Basophils Absolute Auto 0.0 0.0 - 0.2 X10*3/uL [facility] NRBC Abs Auto 0.000 0.0 - 0.012 X10*3/uL [facility] Blood Venous blood specimen / Unknown 09/14/2024 1:25 PM EST 09/14/2024 4:07 PM EST [facility] CLOTH FINISHING RANGE OPERATOR LAB BLOOD ORDERABLES Final Re sult Performing Organization Address City/State/[facility] Co de Phone Number [facility] [address] [place] [phone] * (ABNORMAL) Lipid Panel, Standard (09/14/2024 1:25 PM EST) Triglycerides 123 <150 mg/dL [facility] Comment:Desirable Triglyceri de: less than 150 mg/dLBorderline High Triglyceride 150-199 mg/dLHigh Triglyceride: 200-499 mg/dLVery High Triglyceride: greater than or equal to 5OO mg/dL Cholesterol 146 <200 mg/dL [facility] Comment:Desirable Cholestero l: less than 200 mg/dLBorderline High Cholesterol: 200-239 mg/dLHigh Cholesterol: greater than 239 mg/dL LDL Cholesterol Calculated 83 <100 mg/dL [facility] Comment:Desirable LDL: less than 100 mg/dLNear Optimal/Above Optimal LDL: 110- 129 mg/dLBorderline High LDL: 130-159 mg/dLHigh LDL: 160-189 mg/dLVery High LDL: greater than or equal to 190 mg/dL HDL Cholesterol 39(L) >40 mg/dL [facility] Comment:Desirable HDL: great er than 40 mg/dL Note: This HDL assay may give artificially low results in patients with liver disease. Blood Venous blood specimen / Unknown 09/14/2024 1:25 PM EST 09/14/2024 4:07 PM EST [facility] CLOTH FINISHING RANGE OPERATOR LAB BLOOD ORDERABLES Final Re sult [facility] [address] [place] [address] [phone] * STI testing add on (NG, CT, Trich) (09/08/2024 9:30 AM EST) Trichomonas (NAAT) Not Detected Not Detected [facility] Comment:Methodology: Transcr iption Mediated Amplification(TMA)The analytical performance characteristics of thisassay have been determined by [employer], [place], [place]. The modificationshave not been cleared or approved by the FDA. Thisassay has been validated pursuant to the CLIAregulations and is used for clinical purposes.For additional information, please refer tohttp://[email or web address]/faq/Trichomonastma (This link is being providedfor information/educational purposes only).THIS TEST WAS PERFORMED AT:[email or web address] [id number] [place] [address]LGOHUDGSALEEM IRBY MD,PHD CTNG Ref Lab Not Detected Not Detected [facility] NG Ref Lab Not Detected Not Detected [facility] Comment:Methodology: Transcr iption Mediated Amplification(TMA) to detect RNA.The analytical performance characteristics of thisassay, when used to test [employer] specimens havebeen determined by [employer]. The modificationshave not been cleared or approved by the FDA.This assay has been validated pursuant to the CLIAregulations and is used for clinical purposes.For additional information, please refer tohttps://[employer]/faq/NGH797(This link is being provided for information/educational purposes only).THIS TEST WAS PERFORMED AT:[employer]/[address] [place] [address]HJQIPEHSALEEM IRBY MD,PHD ThinPrep?? vial Cervix uteri structure / Unknown 09/08/2024 9:30 AM EST 09/09/2024 10:20 AM EST [facility] - 09/13/2024 11:00 PM EST Collection Date: [id number] by: WON Cardenas: Cervix Corbin Hughes CNM LAB CYTOLOGY ORDERABLES F inal Result [facility] [address] [place] [phone] * Pap Smear (09/08/2024 9:30 AM EST) Swab Cervix uteri structure / Unknown 09/08/2024 9:30 AM EST 09/09/2024 10:20 AM EST [facility] - 09/17/2024 3:06 PM EST ----- ------- Name: Hilda Mcmahan ? Age/Sex: 59/F ? : 1965 Unit#: [id number] ?? Attend Dr: CORBIN HUGHES CNM ?Re09/08/24 ?Status: DEP REF ? Location: HO.LNP ?Disch: ? ----- ------- SPEC : [id number] ?RECD: 09/09/24 ? STATUS: ??SOUT ? REQ NUM: [id number] ? LORI: 09/08/24 ? SUBM DR: CORBIN HUGHES CNM ? ENTERED: ??09/09/24 ?SP TYPE: [...] ------- Signed (signature on file) TALIB Roche ([facility]) 09/17/24 1506 ? ----- ------- ? END OF REPORT ? Corbin Hughes [facility] LAB CYTOLOGY ORDERABLES F inal Result [facility] [address] [place] [phone] * BI Mammogram Screening Tomosynthesis Bilateral (08/27/2024 1:05 PM EST) Anatomical Region Laterality Modality Breast Bilateral Mammography 08/27/2024 1:05 PM EST Narrative 09/08/2024 4:57 PM EST ? [facility] ? [address] [facility] ?[place] [address] ? Mammography Report ? Signed ? Patient: Mcmahan,Hilda ?MR#: [id number] ?? 5104 ? : 1965 ?Acct:[id number] ? Age/Sex: 59 / F ?ADM Date: 12/26/24 ? Loc: HO.MAMMO ? Attending Dr: Oz Sahni MD ? Ordering Physician: Ginger Perez CLOTH FINISHING RANGE OPERATOR ?Results: 1Nega ?? tive ? Date of Service: 08/27/24 ?Follow Up: 1 Year From Orig ?? inal Mammogram ? Procedure(s): MM tomosynthesis screening BI ?? Accession Number(s): [id number] ? cc: Ginger Perez CLOTH FINISHING RANGE OPERATOR ? EXAMINATION: ?? MM SCREENING DIGITAL BREAST TOMOSYNTHESIS, BILATERAL ? CLINICAL INFORMATION: ? Screening. Asymptomatic. ? COMPARISON: ?? Mammography: Comparison is made with available priors ? TECHNIQUE: ?? Digital breast mammography with tomosynthesis is performed in both the ?? craniocaudal and mediolateral oblique views along with computer-aided ?? detection (CAD). ? FINDINGS: ?? There are scattered areas of fibroglandular density (ACR BI-RADS breast ?? composition Category b). ? There are no significant masses, abnormal calcifications, or other ?? abnormalities. ? MM/MM tomosynthesis screening BI ?? IMPRESSION: ?? No mammographic evidence of malignancy. ? ASSESSMENT: ? BI-RADS BI-RADS 1 - Negative ? RECOMMENDATION: ?? Routine annual mammography screening. ? 1 year F/U ? This examination should not preclude the clinical evaluation of a ?? suspicious palpable abnormality. ? This patient's information was entered into a reminder system with a ?? target due date for their next mammogram. ? Electronically signed by: ??Pepper Mercer DO ??09/08/2024 04:54 PM EST ?? RP ? Dictated By: ?Pepper Mercer DO ? Signed By: ?<Electronically signed by Pepper Mercer, DO in OV> ? 09/08/24 1654 ? DD/ 1305 ? TD/TT: 08/27/24 1329 ? Wellness Rn: ? Procedure Note Donotmalachiter, [facility] - [facility] [address] [place], [place] [address] Mammography Report Signed Patient: Hilda McmahanMR#: [id number] 5104 : 1965Acct:[id number] Age/Sex: 59 / FADM Date: 08/27/24 Loc: HO.MAMMO Attending Dr: Oz Sahni MD Ordering Physician: Ginger Perez FNPResults: 1Nega tive Date of Service: 08/27/24Follow Up: 1 Year From Orig inal Mammogram Procedure(s): MM tomosynthesis screening BI Accession Number(s): [id number] cc: Ginger Perez CLOTH FINISHING RANGE OPERATOR EXAMINATION: MM SCREENING DIGITAL BREAST TOMOSYNTHESIS, BILATERAL CLINICAL INFORMATION: Screening. Asymptomatic. COMPARISON: Mammography: Comparison is made with available priors TECHNIQUE: Digital breast mammography with tomosynthesis is performed in both the craniocaudal and mediolateral oblique views along with computer-aided detection (CAD). FINDINGS: There are scattered areas of fibroglandular density (ACR BI-RADS breast composition Category b). There are no significant masses, abnormal calcifications, or other abnormalities. MM/MM tomosynthesis screening BI IMPRESSION: No mammographic evidence of malignancy. ASSESSMENT: BI-RADS BI-RADS 1 - Negative RECOMMENDATION: Routine annual mammography screening. 1 year F/U This examination should not preclude the clinical evaluation of a suspicious palpable abnormality. This patient's information was entered into a reminder system with a target due date for their next mammogram. Electronically signed by: Pepper Mercer DO 09/08/2024 04:54 PM EST Dictated By: Pepper Mercer DO Signed By: <Electronically signed by Pepper Mercer DO in OV> 09/08/24 1654 DD/ 1305 TD/TT: 08/27/24 1329 Wellness Rn: [facility] CLOTH FINISHING RANGE OPERATOR IMG BI PROCEDURES Final Resul t * Ethanol (08/13/2024 5:21 AM EST) ETHANOL (MG/DL) IN SER/PLAS <10 mg/dL [facility] Comment:Serum/plasma ethanol results are to be used formedical/treatment purposes only. 08/13/2024 5:21 AM EST 08/13/2024 5:26 AM EST Generic External Data Provider LAB BLOOD ORDERAB LES Final Result [facility] [address] [place] [phone] * (ABNORMAL) Drug Monitoring, Panel 1, Screen, Urine (08/13/2024 5:21 AM EST) Pathologist [facility] Opiate Screen Urine Not Detected Not Detect [facility] Comment:Opiate cut-off is 30 0 ng/mL.Positive results are unconfirmed and should not be used fornon-medical purposes. Barbiturates, Urine Not Detected Not Detect [facility] Comment:Barbiturate cut-off is 200 ng/mL.Positive results are unconfirmed and should not be used fornon-medical purposes. Phencyclidine Screen Urine Not Detected Not Detect [facility] Comment:Phencyclidine cut-of f is 25 ng/mL.Positive results are unconfirmed and should not be used fornon-medical purposes. Amphetamine Screen Urine Not Detected Not Detect [facility] Comment:Amphetamine cut-off is 1000 ng/mL.Positive results are unconfirmed and should not be used fornon-medical purposes. Benzodiazepines Screen Urine Not Detected Not Detect [facility] Comment:Benzodiazepine cut-o ff is 200 ng/mL.Positive results are unconfirmed and should not be used fornon-medical purposes. Cocaine Screen Urine Not Detected Not Detect [facility] Comment:Cocaine cut-off is 3 00 ng/mL.Positive results are unconfirmed and should not be used fornon-medical purposes. Cannabinoid Screen Urine POSITIVE(A) Not Detect [facility] Comment:Cannabinoid cut-off is 50 ng/mL.Positive results are unconfirmed and should not be used fornon-medical purposes. Methadone Screen, Urine Not Detected Not Detect ng/mL [facility] Comment:Methadone cut-off is 300 ng/mL.Positive results are unconfirmed and should not be used fornon-medical purposes. FENTANYL URINE Not Detected Not Detect [facility] Comment:Fentanyl cut-off is 1 ng/mL.Positive results are unconfirmed and should not be used fornon-medical purposes. Oxycodone Urine Screen Not Detected Not Detect ng/mL [facility] Comment:Oxycodone cut-off is 100 ng/mL.Positive results are unconfirmed and should not be used fornon-medical purposes. Buprenorphine Screen Not Detected Not Detect ng/mL [facility] Comment:Buprenorphine cut-of f is 5 ng/mL.Positive results are unconfirmed and should not be used fornon-medical purposes. 08/13/2024 5:21 AM EST 08/13/2024 5:26 AM EST Generic External Data Provider LAB URINE ORDERAB LES Final Result Performing Organization Address [facility] Co de Phone Number [facility] [address] [place] [phone] * Magnesium (08/13/2024 5:21 AM EST) Magnesium 1.9 1.6 - 2.6 mg/dL [facility] 08/13/2024 5:21 AM EST 08/13/2024 5:26 AM EST Generic External Data Provider LAB BLOOD ORDERAB LES Final Result Performing Organization Address [facility] Co de Phone Number [facility] [address] [place] [address] [phone] * Hepatic Function Panel (08/13/2024 5:21 AM EST) Bilirubin, Total 0.5 0.0 - 1.0 mg/dL [facility] Bilirubin, Direct 0.2 0.0 - 0.5 mg/dL [facility] Aspartate Amino Transferase 22 5 - 31 U/L [facility] Alanine Aminotransferase 15 0 - 31 U/L [facility] Total Protein 7.4 6.5 - 8.0 g/dL [facility] Albumin Level 3.9 3.5 - 5.0 g/dL [facility] Alkaline Phosphatase 93 39 - 117 U/L [facility] 08/13/2024 5:21 AM EST 08/13/2024 5:26 AM EST us Generic External Data Provider LAB BLOOD ORDERAB LES Final Result [facility] [address] [place] [phone] * (ABNORMAL) Basic Metabolic Panel (08/13/2024 5:21 AM EST) Sodium 148(H) 135 - 145 mmol/L [facility] Potassium 3.8 3.3 - 5.1 mmol/L [facility] Chloride 116(H) 96 - 108 mmol/L [facility] Carbon Dioxide 22 22 - 29 mmol/L [facility] Anion Gap 14 12 - 20 [facility] Urea Nitrogen (BUN) 11 9 - 16 mg/dL [facility] Creatinine, Serum 1.00 0.5 - 1.4 mg/dL [facility] Creatinine Clr Calc Pharmacy 70.0 [facility] Comment:Provided height and weight: 165.1 cm,102.058 kg.eGFR (calculated from the MDRD study equation) and eCrCl(calculated from the Cockcroft-Gault equation) are based ondifferent parameters and may not yield comparable results.If eCrCl result is absurd, please check patient'sheight/weight. Estimated Glomerular Filt Rate 56 [facility] Comment:Chronic Kidney Disea se: Estimated GFR < 60 mL/min/1.52f1Zlitja Kidney Disease: Estimated GFR < 15 mL/min/1.73m2 Glucose 110 60 - 115 mg/dL [facility] Calcium 9.9 8.4 - 10.2 mg/dL [facility] 08/13/2024 5:21 AM EST 08/13/2024 5:26 AM EST Generic External Data Provider LAB BLOOD ORDERAB LES Final Result [facility] [address] [place] [phone] * POCT Hemoglobin (07/10/2024 1:02 PM EST) Hemoglobin 14.1 12.0 - 15.0 QC Media Lot # [id number] Lot# Expiration Date , Blood 07/10/2024 1:02 PM EST Donna Paloma MILLS POINT OF CARE TEST ENTER/ROXANNE T ORDERABLES Final Result * POCT Glucose (07/10/2024 1:00 PM EST) Glucose Blood, POC 104 60 - 200 mg/dL Comment:Random [employer] Media Lot # [id number] Lot# Expiration Date ,025 Blood Capillary blood specimen / Unknown 07/10/2024 1:00 PM EST Donna Paloma DO POINT OF CARE TEST ENTER/ROXANNE T ORDERABLES Final Result * (ABNORMAL) POCT HGB A1C (05/13/2024 12:23 PM EDT) Hemoglobin A1C 6.2(A) 4.0 - 6.0 % QC Media Lot # [id number] Lot# Expiration Date 729,026 Blood 05/13/2024 12:2 3 PM EDT us Ginger Chatsworth CLOTH FINISHING RANGE OPERATOR POINT OF CARE TEST ENTER/EDIT ORDERABLES Final Result * Hepatitis C Antibody with Reflex to HCV, RNA, Quantitative, Real-Time PCR (09/25/2022 12:06 PM EST) Pathologist [facility] Hepatitis C Antibody NON-REACT MARRY NON-REACT MARRY [facility] [place] [employer] Index 0.12 <1.00 [facility] Comment: HCV antibody was non-reactive. There is no laboratory evidence of HCV infection. In most cases, no further action is required. However, if recent HCV exposure is suspected, a test for HCV RNA (test code 32085) is suggested. For additional information please refer to http://[employer].Quixey/faq/BPY23l7 (This link is being provided for informational/ educational purposes only.) Blood Venous blood specimen / Unknown 09/25/2022 12:06 PM EST 09/25/2022 12:06 PM EST Narrative [facility] - 09/27/2022 8:46 AM EST FASTING:YES FASTING: YES [facility] LAB BLOOD ORDERABLES Final Re sult [facility] [address], [facility], [place] [address] [facility] [place] [employer] [address] [facility] [facility], (Nl2) [place] [address] * HPV mRNA E6/E7 (09/09/2019 11:55 AM EST) [facility] HPV mRNA E6/E7 Not Detected NOT DETECTED [facility] Comment: This test was performed using the APTIMA(R) HPV Assay ([employer] This assay detects E6/E7 viral messenger RNA (mRNA) from 14 high-risk HPV types (16,18,31,33,35,39,45,51, 52,56,58,59,66,68). For additional information please refer to: http://[employer]ixey/faq/JQL422o5 (This link is being provided for informational/ educational purposes only.) The analytical performance characteristics of this assay have been determined by [employer], [place]. The modifications have not been cleared or approved by the FDA. This assay has been validated pursuant to the CLIA regulations and is used for clinical purposes. Test Performed by [employer], [facility], [address] [place] [address] Saleem Irby M.D., Ph.D., Director of Laboratories , CLIA [id number] Please note: ??Effective 05/14/2016, HPV testing will be performed using [employer] APTIMA test which targets mRNA. Detecting mRNA instead of DNA, as in older methods, offers significant improvements in specificity. 09/09/2019 11:5 5 AM EST Corbin Hughes CNM HISTORICAL/NON ORDERABLE LABS Final Result Performing Organization Address City/State/[facility] [place] Phone Number [facility] Anywhere [address] from Last 3 Months or Most Recently Relevant to Health Maintenance Insurance [facility] [employer] C3 * Guarantor: Hilda Mcmahan Account Type Relation to Patient Date of Phone Billing Address Personal/Family Self [address] [place] [address] * Guarantor: Hilda Mcmahan Account Type Relation to Patient Date of Phone Billing Address Personal/Family Self [address] [place] [address] Care Teams Flight Line Mechanic Relationship Specialty Start Date End Date ChatsworthGinger FNP [address] [place] [address] PCP - General Family Medicine 08/13/22
[2024-10-02 09:18] LABS: Thyroid Peroxidase Antibodies <1 IU/mL (<9)
[2024-10-04 19:59] LABS: Thyrotropin Receptor Antibody <1.00 IU/L (<=2.00)
== END 2024-10-01 09:54 | disposition home or self-care (01) ==
LOC: HO.HHCL 09:53
PROVIDERS: Visit Provider Registered Nurse
DX: Z11.4 Encounter for screening for human immunodeficiency virus [HIV] (principal); R79.89 Other specified abnormal findings of blood chemistry; E11.65 Type 2 diabetes mellitus with hyperglycemia; Z79.4 Long term (current) use of insulin
CPT/HCPCS: 36415; 83520; 84439; 84443; 86376; 87389

== ENCOUNTER 2024-10-05 12:42 | Outpatient (REF) | payer MEDICAID, SELFPAY | END 2024-10-05 12:43 | disposition home or self-care (01) | LOC: HO.SH 12:42 | PROVIDERS: Visit Provider Registered Nurse | DX: Z01.118 Encounter for examination of ears and hearing with other abnormal findings (principal); H93.293 Other abnormal auditory perceptions, bilateral | CPT/HCPCS: 92552; 92555; 92565; 92567 ==

== ENCOUNTER 2024-10-28 13:37 | Outpatient (AMB) | payer MEDICAID, SELFPAY ==
[2024-10-28 13:48] VITALS: BP 98/72; PULSE 52; O2SAT 97; BMI 36.2
--- NOTE | 2024-10-28 13:48 | MHC.OFFVIS ---
Vital Signs 10/28/24 13:48 Height 5 ft 2 in Weight 197 lb 15.602 oz BMI 36.2 BP 98/72 Blood Pressure Location Lt brachial Position Sitting Pulse 52 Pulse Source Pulse Oximeter Pulse Oximetry (%) 97 Oxygen Delivery Method Room Air Intake Visit Reasons: Hyperthyroidism Intake Note: Patient present today for Hyperthyroidism office visit. Crusher Loader Operator Required: No Accompanied by: DATA MANAGEMENT ENGINEER Allergies mushroom Allergy (Verified 10/28/24 13:53) Anaphylaxis Medication List - Last Reconciled 10/28/24 by Sania Hall MD albuterol sulfate 90 mcg/actuation (Proventil HFA) 1 puff inhalation QID PRN atorvastatin 20 mg PO BEDTIME bisacodyl (Dulcolax (bisacodyl)) 20 mg (4 x 5 mg) PO ONCE 1 day blood sugar diagnostic (FreeStyle Lite Strips) USE TO TEST BLOOD SUGAR THREE TIMES DAILY to confirm sensor readings or if low blood-glucose meter (FreeStyle Stow Lite kit) As directed cholecalciferol (vitamin D3) 50 mcg PO QAM clonazepam 1 mg PO TID CPAP (CPAP Machine/Device) As directed diclofenac sodium 1% 1 - 2 grams topical BID PRN empagliflozin (Jardiance) 10 mg PO DAILY fluticasone propion-salmeterol 250-50 mcg/dose (Advair Diskus) 1 ea inhalation BID gabapentin 600 mg PO BEDTIME [glucose tablets 15 grams PO TID PRN 30 days MDD 45 gram] ibuprofen 600 mg PO Q6H PRN lancets (FreeStyle Lancets) Three times a data day lancets (TRUEplus Lancets) As directed levetiracetam (Keppra) 500 mg PO BID lidocaine 5% (Lidoderm) 1 patch topical DAILY lisinopril-hydrochlorothiazide 20-25 mg 2 tabs PO QAM melatonin 5 mg PO QPM naproxen 250 mg PO BID PRN olmesartan 5 mg PO QAM pen needle, diabetic (Pentips Pen Needle) 1 ea miscellaneous DAILY prazosin 5 mg PO BEDTIME propranolol 40 mg PO BID psyllium husk (aspartame) 3 gram/5.8 gram (Reguloid (aspartame)) 3 grams PO QAM tirzepatide (Mounjaro) 7.5 mg (0.5 mL) subcut QWEEK 28 days tizanidine 4 mg PO Q8H PRN HPI Comments Details: 59-year-old sex assigned at female with preferred pronouns he/him, coming in today for initial evaluation of subclinical hyperthyroidism. Here today with DATA MANAGEMENT ENGINEER Jing Sees Cheryl Crocker APRN for DM, not addressed today. no prior thyroid disorders or treatments Labs from 09/14/2024 showed TSH low at 0.12 with free T4 normal at 1.01, repeat labs 10/01/2024 showed TSH improved but still low at 0.27 with free T4 of 0.91. TPO and TSH receptor antibodies were negative. Reports palpitations. Intermittent. Reports diarrhea. Stool incontinence. No hair changes. Reports heat intolerance. Reports increased sweating. Postmenopausal. Reports increased anxiety and tremors. Reports low energy, denies changes in appearance of eyes or vision changes. Patient denies any difficulty swallowing, pain on swallowing or voice changes or difficulty breathing. Patient denies any history of childhood neck radiation. Denies having ever used lithium, amiodarone or biotin supplements. Patient denies any family history of thyroid cancer . Sister had thyroid disease. Quit smoking , used to smoke when you were younger. Denies any recent contrast exposure, preceding viral illness. No history of heart disease, no osteoporosis. ROS - Constitutional: Reports fatigue and feeling of internal heat. - Cardiovascular: Reports palpitations. - Gastrointestinal: Reports diarrhea and stool incontinence. - Musculoskeletal: Reports body tremors. - Neurological: Reports tremors. - Endocrine: Reports sweating. Physical exam General: sitting comfortably in no acute distress HEENT: normocephalic/atraumatic, moist oral mucosa Neck: supple, symmetrical, no thyromegaly , Cardiac: normal heart sounds Pulm: normal breath sounds B/L, no added breath sounds Abd: not distended, no tenderness Extremities: no edema, no signs of myxedema Laboratory Tests 09/14/24 10/01/24 13:25 09:58 TSH 0.12 L 0.27 L Free T4 1.01 0.91 Thyroid Peroxidase Ab <1 TSH Receptor Ab <1.00 [facility] 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 myelopathy Disc degeneration, lumbar Hip osteoarthritis Sacroiliitis Illiterate Morbid obesity due to excess calories Diabetes mellitus type 2, controlled, without complications Essential hypertension Hyperlipidemia LDL goal <100 Panic attacks VELASQUEZ on CPAP History of tremor Gender dysphoria Anxiety Depression Asthma Epilepsy Hypertension Surgical History History of esophagogastroduodenoscopy (EGD) Hx of laparoscopic gastric banding Family History Father CVD (cardiovascular disease) Mother Hypertension Social History Household Members: Children and None Household Members Other:: 2 dogs Are you a primary home day care provider to a significant other at home: No Do you presently have visiting nurse or other home services: Yes Alcohol intake: former Patient Tobacco Use Status: Former Tobacco user Substance Use Type: Marijuana Physical Exam Vital Signs: Last Vital Signs Pulse 52 10/28/24 13:48 BP 98/72 10/28/24 13:48 Pulse Ox 97 10/28/24 13:48 Oxygen Delivery Method Room Air 10/28/24 13:48 BMI result Body Mass Index 36.2 Assessment & Plan Assessment & Plan (1) Subclinical hyperthyroidism: Code(s): E05.90 - Thyrotoxicosis, unspecified without thyrotoxic crisis or storm Category: Medical Plan: 59-year-old female presenting for initial evaluation of subclinical hyperthyroidism. Labs from 09/14/2024 showed TSH low at 0.12 with free T4 normal at 1.01, repeat labs 10/01/2024 showed TSH improved but still low at 0.27 with free T4 of 0.91. TPO and TSH receptor antibodies were negative. She does not have any preceding viral illness to suggest thyroiditis. No recent contrast exposure. Patient is not on any biotin supplements. I discussed with the patient the mild elevation in thyroid hormone levels categorizable as subclinical hyperthyroidism, explaining it is slightly increased thyroid activity that does not currently warrant medical therapy. Criteria for treatment is age greater than 65, TSH level less than 0.1, history of heart disease or osteoporosis. I emphasized the importance of monitoring and proposed a follow-up blood test in eight weeks to observe any progression. Plan - TSH, free T4, total T3 and TSI antibodies to be done in eight weeks. - Schedule follow-up in nine weeks. - Arrange for follow-up with a diabetes care provider to address management needs and ensure proper glucose regulation. Patient was informed and verbally consented to the use of an ambient scribe for clinic note documentation during this visit. Plan I spent 45 minutes in reviewing the record, seeing the patient and documenting in the medical record. Orders: Orders Triiodothyronine T3 Total 8 Weeks E05.90 - Thyrotoxicosis, unspecified without thyrotoxic crisis or storm Thyroid Stimulating Hormone 8 Weeks E05.90 - Thyrotoxicosis, unspecified without thyrotoxic crisis or storm Free T4 (Free Thyroxine) 8 Weeks E05.90 - Thyrotoxicosis, unspecified without thyrotoxic crisis or storm Thyroid Stimulating Immunoglob 8 Weeks E05.90 - Thyrotoxicosis, unspecified without thyrotoxic crisis or storm Patient Instructions: Do blood work in 8 weeks and follow up in 9 weeks to discuss results Coding Level of Care Code New Pt Level 4 (54624) Diagnoses Subclinical hyperthyroidism E05.90 Time Spent (min) 45
--- OUTSIDE RECORDS SUMMARY | 2024-10-28 16:44 | XMS_ITS | Encounter Summary ---
Author Organization [employer] Address [address] [facility] 7t [place] [address] Care Team Providers Care Avionics Test Technician Name Role Phone [facility] Primary Care Provider [phone] Reason for Visit * Reason Onset Date Comments Med Refill 10/15/2024 Encounter Details Date Type Department Care Team (Late st Contact Info) Description 10/15/2024 Refill [facility] [address] [place], [place] [phone] Frida Knapp RN Mixed anxiety and depressive disorder Social History Tobacco Use Types Packs/Day Years [...] your housing situation today? I have lamar megan 10/03/[address] you li [...] as of this encounter Plan of Treatment Upcoming Encounters Date Type Department Care Team (Late st Contact Info) Description 10/29/2024 1:30 PM EST Clinical Support [address] [address] Frida Knapp, OZZY 11/13/2024 10:30 AM EDT Telemedicine [address] [address] 12/16/2024 11:30 AM EDT Office Visit [address] [address] Ginger Perez FNP [address] [place] [address] documented as of this encounter Visit Diagnoses Diagnosis Mixed anxiety and depressive disorder Dysthymic disorder documented in this encounter Additional Health Concerns Assessment Noted Time PHQ-9 Depression Total Score: 13 024 11:27 AM EDT documented as of this encounter Care Teams Avionics Test Technician Relationship Specialty Start Date End Date Ginger Perez FNP [address] [place] [address] PCP - General Family Medicine 08/13/22 documented as of this encounter
--- OUTSIDE RECORDS SUMMARY | 2024-10-28 16:44 | XMS_ITS | Encounter Summary ---
Author Organization [employer] Address [address] [facility] 7[address] [place] [address] Care Team Providers Care Household Appliances Salesperson Name Role Phone [facility] Primary Care Provider [phone] Reason for Visit * Reason Onset Date Comments Call Back Request 10/09/2024 Encounter Details Date Type Department Care Team ([facility] st Contact Info) Description 10/09/2024 Telephone [facility] [address] [place], [place] [phone] [facility] [address] [place] [address] Call Back Request Social History Tobacco Use Types Packs/Day Years [...] encounter Miscellaneous Notes * Telephone Encounter - Katey Ott CNM - 10/12/2024 9:52 AM EST Perfect - thanks. * Telephone Encounter - Estela Avelar RN - 10/12/2024 9:47 AM EST Called [facility] and spoke with Akilah. Advised her per provider Katey Ott CNM, it's okay for the pt to refuse the transvaginal ultrasound. Akilah reports that the pt did complete the external pelvic ultrasound on 09/28/24, results not yet read. No further questions. * Telephone Encounter - Katey Ott CNM - 10/09/2024 4:38 PM EST May refuse transvaginal imaging and just have abdominal pelvic ultrasound. Please confirm with [facility]. Did they do external/abdominal? * Telephone Encounter - Jazzmine Lillian Dukes - 10/09/2024 2:48 PM EST Tc joseph Tong with [facility] to clarify if its necessary to do another ultrasound (transvaginal) because the pt refuses to perform it. Any questions contact: [phone] documented in this encounter Plan of Treatment Upcoming Encounters Date Type Department Care Team (Late st Contact Info) Description 10/29/2024 1:30 PM EST Clinical Support [address] [address] Frida Knapp RN 11/13/2024 10:30 AM EDT Telemedicine [address] [address] 12/16/2024 11:30 AM EDT Office Visit [address] [address] Ginger Perez FNP [address] [place] [address] documented as of this encounter Visit Diagnoses Not on filedocumented in this encounter Additional Health Concerns Assessment Noted Time PHQ-9 Depression Total Score: 13 024 11:27 AM EDT documented as of this encounter Care Teams Household Appliances Salesperson Relationship Specialty Start Date End Date Ginger Perez FNP [address] [place] [address] PCP - General Family Medicine 08/13/22 documented as of this encounter
--- OUTSIDE RECORDS SUMMARY | 2024-10-28 16:44 | XMS_ITS | Encounter Summary ---
Author Organization [employer] Address [address] [facility] [address] [place] [address] Care Team Providers Care Manager Visual Name Role Phone [facility] Primary Care Provider [phone] Reason for Visit * Reason Onset Date Comments Nurse Triage 10/07/2023 Encounter Details Date Type Department Care Team ([facility] st Contact Info) Description 10/07/2023 Telephone [facility] [address] [place], [place] [phone] [facility] [address] [place], [place] [phone] Nurse Triage Social History Tobacco Use Types [...] 10/07/2023 3:17 PM EST TC placed to [facility] CS, Ct scan rescheduled to 10/10/23 at [...] still having kidney pain . Patient speaks Hungarian. Advised triage nurse will call patient back. documented in this encounter Plan of Treatment Upcoming Encounters Date Type Department Care Team (Late st Contact Info) Description 10/29/2024 1:30 PM EST Clinical Support [address] [address] Frida Knapp RN 11/13/2024 10:30 AM EDT Telemedicine [address] [address] 12/16/2024 11:30 AM EDT Office Visit [address] [address] Ginger Perez FNP [address] [place] [address] documented as of this encounter Visit Diagnoses Not on filedocumented in this encounter Additional Health Concerns Assessment Noted Time PHQ-9 Depression Total Score: 0 10/03/19 24 10:12 AM EST documented as of this encounter Care Teams Manager Visual Relationship Specialty Start Date End Date Ana GERALD Miles [address] [place] [address] PCP - General Family Medicine 08/13/22 documented as of this encounter
--- OUTSIDE RECORDS SUMMARY | 2024-10-28 16:44 | XMS_ITS | Encounter Summary ---
Author Organization [employer] Address [address] [facility] 7t [place] [address] Care Team Providers Care Concrete Laborer Name Role Phone [facility] Primary Care Provider [phone] Encounter Details Date Type Department Care Team ([facility] st Contact Info) Description 10/23/2024 Telephone [facility] [address] [place], [place] [phone] [facility] 230 [place], [place] [phone] Social History Tobacco Use Types Packs/Day Years [...] encounter Miscellaneous Notes * Telephone Encounter - Trudi Victor - 10/23/2024 1:56 PM EST Pharmacy [facility] attempted outreach call on 10/23/24 for Medication Therapy Management (MTM) appointment; however, unable to reach patient. LVM for patient to contact Trudi Victor at [phone]. documented in this encounter Plan of Treatment Upcoming Encounters Date Type Department Care Team (Late st Contact Info) Description 10/29/2024 1:30 PM EST Clinical Support [address] [address] Frida Knapp RN 11/13/2024 10:30 AM EDT Telemedicine [address] [address] 12/16/2024 11:30 AM EDT Office Visit [address] [address] Ginger Perez FNP [address] [place] [address] documented as of this encounter Visit Diagnoses Not on filedocumented in this encounter Additional Health Concerns Assessment Noted Time PHQ-9 Depression Total Score: 13 024 11:27 AM EDT documented as of this encounter Care Teams Concrete Laborer Relationship Specialty Start Date End Date Ginger Perez FNP [address] [place] [address] PCP - General Family Medicine 08/13/22 documented as of this encounter
--- OUTSIDE RECORDS SUMMARY | 2024-10-28 16:44 | XMS_ITS | Encounter Summary ---
Author Organization [employer] Address [address] [facility] [address] [place] [address] Care Team Providers Care Flight Hostess Name Role Phone [facility] Primary Care Provider [phone] Reason for Visit * Reason Onset Date Comments Results 09/29/2024 Encounter Details Date Type Department Care Team ([facility] st Contact Info) Description 09/29/2024 Telephone [facility] [address] [place], [place] [phone] Marisabel Kaye, OZZY Results Social History Tobacco [...] were not included. TC placed to patient [phone] in regards to below message. Patient verbalized understanding andredanilos she will come to the lab tomorrow morning to complete additional BW. Patient to f/u PRN. [facility] Red Team Nurses Please let patient [...] Advised pt to call office back at [phone] and ask to speak to the red [...] Description 10/29/2024 1:30 PM EST Clinical Support [address] [address] Frida Knapp RN 11/13/2024 10:30 AM EDT Telemedicine [address] [address] 12/16/2024 11:30 AM EDT Office Visit [address] [address] Ginger Perez FNP [address] [place] [address] documented as of this encounter Visit Diagnoses Not on filedocumented in this encounter Additional Health Concerns Assessment Noted Time PHQ-9 Depression Total Score: 13 03/16/ 024 11:27 AM EDT documented as of this encounter Care Teams Flight Hostess Relationship Specialty Start Date End Date Ginger Perez FNP [address] [place] [address] PCP - General Family Medicine 08/13/22 documented as of this encounter
--- OUTSIDE RECORDS SUMMARY | 2024-10-28 16:44 | XMS_ITS | Encounter Summary ---
Author Organization [employer] Address [address] [facility] [address] [place] [address] Care Team Providers Care Dovetail Machine Operator Name Role Phone [facility] Primary Care Provider [phone] Reason for Visit * Reason Onset Date Comments Results 10/05/2024 Encounter Details Date Type Department Care Team ([facility] st Contact Info) Description 10/05/2024 Telephone [facility] [address] [place], [place] [phone] Kimberly Michael RN [address] [place], [place] [phone] Results Social History Tobacco Use Types Packs/Day [...] Telephone Encounter - Kimberly Michael RN - 10/05/2024 2:37 PM EST TC placed to patient [phone] in regards to below message. Patient verbalized understanding andis aware she will be referred to endo. Patient aware she will receive a letter in the mail or a call from endo office with appointment date and time. Patient to f/u PRN. ----- Message from [facility] sent at 10/05/2024 12:40 PM EST ----- Patient now with confirmed subclinical hyperthyroidism. Will refer to endocrinology for further evaluation. Antibodies negative. Please advise patient of referral to [facility] Endo. Thank you! documented in this encounter Plan of Treatment Upcoming Encounters Date Type Department Care Team (Late st Contact Info) Description 10/29/2024 1:30 PM EST Clinical Support [facility] [address] [place] [address] Frida Knapp RN 11/13/2024 10:30 AM EDT Telemedicine [facility] [address] [place] [address] 12/16/2024 11:30 AM EDT Office Visit [facility] [address] [place] [address] Ginger Perez FNP [address] [place] [address] documented as of this encounter Visit Diagnoses Not on filedocumented in this encounter Additional Health Concerns Assessment Noted Time PHQ-9 Depression Total Score: 13 024 11:27 AM EDT documented as of this encounter Care Teams Dovetail Machine Operator Relationship Specialty Start Date End Date Ginger Perez FNP [address] [place] [address] PCP - General Family Medicine 08/13/22 documented as of this encounter
--- OUTSIDE RECORDS SUMMARY | 2024-10-28 16:44 | XMS_ITS | Encounter Summary ---
Author Organization [employer] Address [address] [facility] [address] [place] [address] Care Team Providers Care Extra Hand Name Role Phone [facility] Primary Care Provider [phone] Reason for Visit * Reason Onset Date Comments Durable Medical Equipment 12/18/2022 Encounter Details Date Type Department Care Team ([facility] st Contact Info) Description 12/18/2022 Telephone [facility] MEDICINE [address] [place], [place] [phone] [facility] [address] [place] [address] Durable Medical Equipment Social History Tobacco Use [...] 2:22 PM EDT Tc from sarah from [facility] requesting a new nebulizer machine . States pt informed old one stopped working . documented in this encounter Plan of Treatment Upcoming Encounters Date Type Department Care Team (Late st Contact Info) Description 10/29/2024 1:30 PM EST Clinical Support [address] [address] Frida Knapp, RN 11/13/2024 10:30 AM EDT Telemedicine [address] [address] 12/16/2024 11:30 AM EDT Office Visit [address] [address] Ginger Perez FNP [address] [place] [phone] documented as of this encounter Visit Diagnoses Not on filedocumented in this encounter Additional Health Concerns Assessment Noted Time PHQ-9 Depression Total Score: 0 12/12/19 23 3:58 PM EDT documented as of this encounter Care Teams Extra Hand Relationship Specialty Start Date End Date Ginger Perez FNP [address] [place] [id number] PCP - General Family Medicine 08/13/22 documented as of this encounter
--- OUTSIDE RECORDS SUMMARY | 2024-10-28 16:44 | XMS_ITS | Encounter Summary ---
Author Organization [employer] Address [address] [facility] [address] [place] [address] Care Team Providers Care Nursing Consultant Name Role Phone [facility] Primary Care Provider [phone] Reason for Visit * Reason Comments Med Refill Encounter Details Date Type Department Care Team ([facility] st Contact Info) Description 11/22/2023 Refill [facility] MEDICINE [address] [place], [place] [phone] [facility] [address] [place], [place] [phone] Type 2 diabetes mellitus with hyperglycemia, with long-term current use of insulin ([facility]) Social History Tobacco Use Types Packs/Day Years [...] the past 12 months, has t he Urve[employer], gas, oil or water company threatened to [...] Description 10/29/2024 1:30 PM EST Clinical Support [address] [address] Frida Knapp RN 11/13/2024 10:30 AM EDT Telemedicine [address] [address] 12/16/2024 11:30 AM EDT Office Visit [address] [address] Ginger Perez [address] [address] documented as of this encounter Visit Diagnoses Diagnosis Type 2 diabetes mellitus with hyperglycemia, with long-term current use of insulin ([facility]) documented in this encounter Additional Health Concerns Assessment Noted Time PHQ-9 Depression Total Score: 0 11/13/19 24 3:08 PM EDT documented as of this encounter Care Teams Nursing Consultant Relationship Specialty Start Date End Date Ginger Perez FNP [address] [place] [id number] PCP - General Family Medicine 08/13/22 documented as of this encounter
--- OUTSIDE RECORDS SUMMARY | 2024-10-28 16:44 | XMS_ITS | Continuity of Care Document ---
Author Organization [facility] ter Address [address] [place] [id number]- Care Team Providers Care Telephone Solicitor Name Role Phone Bora SIBLEY, Oz Primary Care Physician [phone] [id number] Date(s): 10/12/24 - 10/12/[address] [address] Discharge Disposition: A-D/C Home Attending Physician: Melisa Ho DO Admitting Physician: Melisa Ho DO Referring Physician: Melisa Ho DO Encounter Type: Disch Daystay Allergies, Adverse Reactions, Alerts No Known Allergies Medications abilify abilify, Refills 0, Maintenance, 08/19/19 1:20:00 PM EST, Compound Start Date: 08/19/19 Status: Ordered Repeat number: 1 Advair Diskus 250 mcg-50 mcg inhalation powder 1, inhalation, Inhalation, 2 times a day, rinse mouth and throat after use, Maintenance, Powder Start Date: 12/15/21 Status: Ordered Repeat number: 1 atorvastatin 20 mg oral tablet 1 tablet = 20 mg, By Mouth, Daily, Maintenance Start Date: 12/15/21 Status: Ordered Repeat number: 1 Clonazepam = 1 mg, By Mouth, 3 times a day, 1 tab BID, may take additional tab qHS for sleep, 0 Refills, Maintenance, 08/19/19 1:20:00 PM EST Start Date: 08/19/19 Status: Ordered Repeat number: 1 CPAP Equipment See Instructions, # 1 each, Maintenance, 3. : 1965 4. Medicaid ID# [id number] 5. Nasal mask, headgear,cushions,tubing,filters,chin strap,humidifier chamber, heated tubing. 6. 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 Length of time needed-One Year 8. Date of Service-03/11/2017 9. Please Include M, 03/11/17 6:57:52 AM EDT, Compound Start Date: 03/11/17 Status: Ordered Quantity: 1.0 Unit: each Repeat number: 1 cyclobenzaprine 5 mg oral tablet 1 tablet = 5 mg, By Mouth, 3 times a day, PRN Spasm, Maintenance Start Date: 12/15/21 Status: Ordered Repeat number: 1 Dulcolax Tablet 10 mg, By Mouth, Daily, Maintenance, 06/19/11 1:18:14 PM EDT Start Date: 06/19/11 Status: Ordered Repeat number: 1 gabapentin 300 mg oral capsule 300 mg, 1, capsule, By Mouth, 3 times a day, Maintenance Start Date: 12/15/21 Status: Ordered Repeat number: 1 hydrochlorothiazide-lisinopril 25 mg-20 mg oral tablet 1 tablet, By Mouth, Daily, Maintenance Start Date: 12/15/21 Status: Ordered Repeat number: 1 insulin in am insulin in am, Refills 0, Maintenance, 08/19/19 1:19:00 PM EST, Compound Start Date: 08/19/19 Status: Ordered Repeat number: 1 Jardiance 10 mg oral tablet 1 tablet = 10 mg, By Mouth, Daily in AM, Maintenance, Tablet Start Date: 12/15/21 Status: Ordered Repeat number: 1 Metformin = 1,000 mg, By Mouth, 2 times a day, 0 Refills, Maintenance, 02/21/18 2:23:18 PM EDT Start Date: 02/21/18 Status: Ordered Repeat number: 1 pravastatin 20 mg oral tablet 1, tablet, By Mouth, Daily, # 30 tablet, Soft Stop Start Date: 12/02/08 Stop Date: 01/01/09 Status: Ordered Quantity: 30.0 Unit: tablet Repeat number: 1 prazosin 5 mg oral capsule 5 mg, 1, capsule, By Mouth, Daily at bedtime, Maintenance Start Date: 12/15/21 Status: Ordered Repeat number: 1 ProAir HFA 90 mcg/inh inhalation aerosol with adapter 2, puffs, Inhalation, 4 times a day, Soft Stop Start Date: 12/02/08 Stop Date: 01/01/09 Status: Ordered Repeat number: 1 propranolol 40 mg oral tablet 40 mg, 1, tablet, By Mouth, 2 times a day, Maintenance Start Date: 12/15/21 Status: Ordered Repeat number: 1 Proventil 0.083% inhalation solution 3 mL = 2.5 mg, Inhalation, Every 4 hours, 0 Refills, Maintenance, 06/19/11 1:17:10 PM EDT Start Date: 06/19/11 Status: Ordered Repeat number: 1 trazodone 100 mg oral tablet 1 tablet = 100 mg, By Mouth, Daily at bedtime, 0 Refills, Maintenance, 10/28/13 2:25:39 PM EST Start Date: 10/28/13 Status: Ordered Repeat number: 1 Tresiba 100 units/mL subcutaneous solution Subcutaneous Infusion, Daily, 0 Refills, Maintenance, 12/15/21 4:18:00 PM EDT, Partial fill upon patient request if the prescription is for a schedule II opioid drug. Start Date: 12/15/21 Status: Ordered Repeat number: 1 Trulicity Pen 3 mg/0.5 mL subcutaneous solution 0.5 mL = 3 mg, Subcutaneous Injection, Every week, rotate injection sites, Maintenance, Solution Start Date: 12/15/21 Status: Ordered Repeat number: 1 Tums 500 Chew, 2 times a day, 0 Refills, Maintenance, 06/19/11 1:18:37 PM EDT Start Date: 06/19/11 Status: Ordered Repeat number: 1 Vitamin D3 2000 intl units oral capsule 1 capsule = 50 mcg, By Mouth, Daily, Maintenance Start Date: 12/15/21 Status: Ordered Repeat number: 1 zolpidem 10 mg oral tablet 0.5 tablet = 5 mg, By Mouth, Daily at bedtime, 0 Refills, Maintenance, 06/19/11 1:20:30 PM EDT Start Date: 06/19/11 Status: Ordered Repeat number: 1 Problem List Condition Confirmation Course Effective Dates Status H ealth Status Informant Asthma Confirmed 05/25/20 Active Chronic post-traumatic stress disorder Confirmed 06/10/20 Active Diabetes mellitus Confirmed 05/25/20 Active Essential hypertension Confirmed 05/25/20 Active Headache Confirmed 05/25/20 Active Hypoventilation Confirmed Active Illiterate Confirmed Active Mixed anxiety and depressive disorder Confirmed 05/25/20 Active Mixed hyperlipidemia Confirmed 05/25/20 Active Complex sleep apnea syndrome Confirmed Active Morbid obesity Confirmed 06/01/20 Active Obstructive sleep apnea Confirmed Active Seizure Confirmed 05/25/20 Active Severe obesity (BMI 35.0-39.9) with comorbidity Confirmed Active Tremor Confirmed 05/25/20 Active Vital Signs Most recent to oldest [Reference Range]: 1 2 3 Height 158 cm (10/12/24 2:05 PM) Oxygen Saturation [94-100 %] 98 % (10/12/24 4:20 PM) 97 % (10/12/24 4:14 PM) 96 % (10/12/24 4:07 PM) Pulse Rate [55-90 bpm] 55 bpm (10/12/24 2:05 PM) Blood Pressure [90-138/55-84 mm Hg] 109/79mm Hg (10/12/24 4:20 PM) 123/78mm Hg (10/12/24 4:14 PM) 126/74mm Hg (10/12/24 4:07 PM) Respiratory Rate [16-30 br/min] 15 br/min *L* (10/12/24 4:20 PM) 22 br/min (10/12/24 4:14 PM) 17 br/min (10/12/24 4:07 PM) Temperature [96.8-100.4 DegF] 96.5 DegF *L* (10/12/24 4:02 PM) 96.7 DegF *L* (10/12/24 2:05 PM) Mode of Delivery (Oxygen) Room air (10/12/24 4:20 PM) Room air (10/12/24 4:14 PM) Room air (10/12/24 4:07 PM) Blood pressure sites Arm, left (10/12/24 4:20 PM) Arm, left (10/12/24 4:14 PM) Arm, left (10/12/24 4:07 PM) Temperature Route Temporal (10/12/24 4:02 PM) Temporal (10/12/24 2:05 PM) Dry Weight 86 kg (10/12/24 2:05 PM) Social History Social History Type Response Smoking Status Former smoker, quit more than 30 days ago entered on: 01/06/24 Sex Sex Representation Female (finding) Note * Jassi Barragan RN: PERFORM Event Display: Discharge/Transfer Note Hospital Authored Date: [id number] Nursing Discharge Note Entered On: 10/12/2024 15:59 EST Performed On: 10/12/2024 15:58 EST by Jassi Barragan RN Nursing Discharge Note 2 Discharge Time : 10/12/2024 16:43 EST Jassi Barragan RN - 10/12/2024 16:42 EST Discharge Level of Care at Discharge : Home/Assisted/Foster Care Patient Left Unit Via : Wheelchair Patient Accompanied Off Unit with : Responsible adult DC Instructions Provided & Signed by Pt : Yes Patient Understands D/C Instructions : Yes Patient Instructions Discharge Signed : Yes Did Pt have Specialty Bed or Wound Vac : No Jassi Barragan RN - 10/12/2024 15:58 EST * Jassi Barragan RN: PERFORM Event Display: Patient Education/Instruction Authored Date: [id number] Surgery [place] [address] Name: FELIPA PINEDA : 1965?? Visit: 10/12/2024 12:13?? Current Date: 10/12/2024 15:59 ?? Account: [id number]?? Surgery Discharge Instructions We would like to thank you for allowing us to assist you with your healthcare needs. The following includes patient education materials and information regarding your injury/illness. Our entire staffstrives to provide an excellent experience for our patients and their families. PLEASE ENSURE YOU FOLLOW-UP PER THE INSTRUCTIONS BELOW! ?? YOUR OPINION IS IMPORTANT TO US! Please complete the survey you may receive by mail or email. Your feedback will be used to make improvements to the healthcare experiences of our patients and their families. Surveys are administered by [employer] ?? If further treatment with your primary care physician or another doctor is recommended, it is important for you to keep the appointment. Call your primary care physician or return to the Emergency Department immediately if your condition worsens, fails to improve, or new symptoms develop. If you need to find a doctor, you can call [facility] for a referral at [phone] or toll free at [phone] ([phone]) or log in to [email or web address].. ?? [facility], in keeping with [facility] guidance, no longer requires face masks for staff, patientsor visitors in most situations. Similiar to time spent indoors at other locations, there is the chance that you were exposed to repiratory viruses during your time with us (such as flu or COVID-19). If you develop symptoms concerning for a viral respiratory infection, please seek testing (and treatment if indicated) from your medical provider or home test kit. ?? You can view and manage your care through the patient portal or by using a health care cuong of your choosing. [employer] is a website that allows you to securely view your medical information including your hospital discharge summary, office visit summaries, medications and follow-up visits. You can also request appointments, renew medications, and request access to your medical information using a health care cuong of your choosing, or just ask a question. You are entitled to know the individuals who participated in your treatment. This information is available within your medical record and will be provided upon your request. You can enroll at [email or web address] or register d uring your next office visit. You have been discharged from [facility], Patient Care Unit: ENDO??. If you have any questions regarding these instructions after you leave, please call us and we will be happy to assist you. [facility] Your Care Team Attending Physician Melisa Ho DO Tri?? Reason for Admission CHRONIC DIARRHEA ABD PAIN COLON Primary Care Provider Bora SIBLEY, Oz? Advance Directive Health Care Proxy on File No Patient refuses to discuss What to do next Instructions From Your Doctor ?? Orders?? You Need to Schedule the Following Appointments Follow Up with??follow up with PCP Follow Up with??Oz Sahni When:??In 0 days Where: [address] [place] [address]- Business (1) Discharge Medications FELIPA PINEDA :1965 Visit Date:10/12/2024 Medications: Please continue your medications until treatment is completed or stopped by your provider. You may resume your daily prescription medications. Discuss any questions related to medications with your provider. What How Much When Instructions Next Dose Unchanged Albuterol (ProAir HFA 90 mcg/ inh inhalation aerosol with adapter) 2 puff(s) Inhalation 4 times a day Unchanged Albuterol (Proventil 0.083% inhalation solution) 3 Milliliter Inhalation Every 4 hours Unchanged Atorvastatin (atorvastatin 20 mg oral tablet) 1 tab(s) Oral Daily Unchanged Bisacodyl (Dulcolax Tablet) 10 Milligram Oral Daily Unchanged Calcium Carbonate (Tums 500) Chew Twice a day Unchanged Cholecalciferol (Vitamin D3 2000 intl units oral capsule) 1 capsule Oral Daily Unchanged Clonazepam 1 Milligram Oral 3 times a day 1 tab BID, may take additional tab qHS for sleep ?? Unchanged Cyclobenzaprine (cyclobenzaprine 5 mg oral tablet) 1 tab(s) Oral 3 times a day as needed for Spasm Unchanged dulaglutide (Trulicity Pen 3 mg/ 0.5 mL subcutaneous solution) 0.5 Milliliter Subcutaneous Injection Every week rotate injection sites ?? Unchanged Durable Medical Equipment (CPAP Equipment) See instructions 3. : ??1964 4. Medicaid ID# [id number] 5. Nasal mask, headgear,cushions,tubing,filters,chin strap,humidifier chamber, heated tubing. 6. 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 Length of time needed-One Year 8. Date of Service-2016 9. Please Include M ?? Unchanged empagliflozin (Jardiance 10 mg oral tablet) 1 tab(s) Oral Daily in the morning Unchanged Fluticasone-Salmeterol (Advair Diskus 250 mcg-50 mcg inhalation powder) 1 inhalation Inhalation Twice a day rinse mouth and throat after use ?? Unchanged Gabapentin (gabapentin 300 mg oral capsule) 1 capsule Oral 3 times a day Unchanged Hydrochlorothiazide-Lisinopril (hydrochlorothiazide-lisinopril 25 mg- 20 mg oral tablet) 1 tab(s) Oral Daily Unchanged insulin degludec (Tresiba 100 units/ mL subcutaneous solution) Subcutaneous Infusion Daily Unchanged Metformin 1,000 Milligram Oral Twice a day Unchanged Miscellaneous Rx (abilify) Unchanged Miscellaneous Rx (insulin in am) Unchanged Pravastatin (pravastatin 20 mg oral tablet) 1 tab(s) Oral Daily Unchanged Prazosin (prazosin 5 mg oral capsule) 1 capsule Oral Daily at Bedtime Unchanged Propranolol (propranolol 40 mg oral tablet) 1 tab(s) Oral Twice a day Unchanged Trazodone (trazodone 100 mg oral tablet) 1 tab(s) Oral Daily at Bedtime Unchanged Zolpidem (zolpidem 10 mg oral tablet) 0.5 tab(s) Oral Daily at Bedtime Allergies (NKA means No Known Allergies) NKA Education Materials Below is the list of Educational Leaflet Providered with your Discharge Instructions. [employer] Patient Education - Surgery Medical Daystay Surgical Overnight Discharge Instructions?? [employer] Patient Education - Hemorrhoids Discharge Instructions?? Valuables and Belongings I fully understand and agree that [facility] accepts no responsibility for all my personal property including clothing, toilet articles, radios, jewelry, dentures, hearing aids, rings, money, or any other property that is in my possession or is brought to me after admission. I understand certain valuables may be placed in a hospital safe for a short period of time. I understand that the hospital is not liable for loss or damage due to accident, fire, or other natural occurrence while said property is in the safe. I accept full responsibility for any personal property that I keep with me, and will not hold the hospital responsible in case of loss or disappearance. I acknowledge that i have been encouraged to send valuables and belongings home. ?? Date for Pt to Sign Valuables/Belongings: 10/12/24 14:05:00 ?? Valuables & Belongings ?? Clothes Electronic devices Jewelry Monetary Items Personal devices Miscellaneous Medications (Valuables) Valuables at Bedside Jacket, Pants, Shirt, Shoes, Undergarments ? Glasses ? Valuables Sent Home ? Valuables Sent to Security ? Valuables Sent to Locker ? Other Discharge Information ? Case Management Discharge Plan?? Discharge Plan?? Discharge Level of Care at Discharge: Home/Assisted/Foster Care ?? Pulmonary Rehab Status?? Pulmonary Rehab Discharge Status?? Respiratory Rate: 18 br/min ? Common Emergency Awareness Tips IS IT A STROKE? Act FAST and Check for these signs: FACE Does the face look uneven? ARM Does one arm drift down? SPEECH Does their speech sound strange? TIME Call at any sign of stroke ?? Heart Attack Signs Chest discomfort: Most heart attacks involve discomfort in the center of the chest and lasts more than a few minutes, or goes away and comes back. It can feel like uncomfortable pressure, squeezing, fullness or pain. Discomfort in upper body: Symptoms can include pain or discomfort in one or both arms, back, neck, jaw or stomach. Shortness of breath: With or without discomfort. Other signs: Breaking out in a cold sweat, nausea, or lightheaded. Remember, MINUTES DO MATTER. If you experience any of these heart attack warning signs, call to get immediate medical attention! ?? Smoking can increase your chances of developing chronic health problems and can cause harmful effects to other family members in your house. If you smoke, you are strongly encouraged to quit. Please call [facility] [employer] [facility] at [phone] or [phone] ([phone]) or log in to [email or web address] for referrals to smoking cessation programs. ?? The National Suicide Prevention Hotline is available 25/03 if you or someone you know needs to find a reason to keep living. By calling 3-107-979-[employer] (6362) you'll be connected to a skilled, trained counselor at a crisis center in your area. SURGERY DISCHARGE INSTRUCTIONS SIGNATURE PAGE PINEDAMINHFELIPA Location:[facility] Registration Date and Time:10/12/2024 12:13 EST Primary Care Physician: Bora SIBLEY, [facility], Attending Physician: Melisa Ho DO, FELIPA DRISCOLL, have received the above patient education materials/instructions and have verbalized understanding. If ambulance or transport services are being used I further acknowledge being given a choice of service. ?? If you need to contact me, please call me at this number: . Patient/Agribusiness Professor Name: Patient/Agribusiness Professor Signature: Relationship to Patient: Witness Name/Signature: Date: * Jassi Barragan RN: PERFORM, SIGN, VERIFY Event Display: Patient Education Handout Authored Date: [id number] * Jassi Barragan RN: PERFORM Event Display: Patient Education Leaflets Authored Date: [id number] Surgery Medical Daystay Surgical Overnight Discharge Instructions ?? 295 Medical Daystay/Surgical Overnight Discharge Instructions ? Since your coordination and judgment may be altered by medication and/or anesthesia, a responsible adult must drive you home from the hospital. ? If you have received medication for pain or sedation while under our care, you should not drive, operate machinery, drink alcohol, or sign any legal documents for 24 hours.?? You should have someone with you at home tonight. ? Remain at home the day of discharge.?? You may be up and about unless otherwise instructed by your physician. ? You may resume your daily prescription medication schedule.?? Any depressant medication should be avoided for 24 hours unless otherwise instructed by your surgeon or anesthesiologist. ? Call your physician for a follow-up appointment.? If you experience unusual or severe pain not relied by your pain medication, excessive bleedingor drainage, persistent nausea and vomiting, excessive swelling or redness, foul odor from incisionsite or fever over 100.6F, you need to call your physician. ? A follow-up phone call by a nurse will be made the day after your procedure.?? If you have stayed with us over night, you will not be receiving a follow-up phone call. ? Nausea and vomiting are a common side effect of prescription pain medication.?? We recommend that pills are not taken on an empty stomach.?? While taking any prescription pain medication you should not drive or drink alcohol. ? * Laurel PRECIADO, Jassi: PERFORM Event Display: Patient Education Leaflets Authored Date: [id number] Hemorrhoids Discharge Instructions ?? 672 ??Hemorrhoids Discharge Instructions ??You must carefully read the Consumer Information Use and Disclaimer below in order to understand and correctly use this information?? About this topic Hemorrhoids are swollen veins in the rectum. Your rectum is where stool leaves your body. You may be able to see or feel your hemorrhoids outside of your body, but some hemorrhoids are inside of yourrectum and cannot be seen. Hemorrhoids can cause itching, pain, and bleeding. Being constipated or having hard stools can make your hemorrhoids worse.?? What care is needed at home? Ask your doctor what you need to do when you go home. Make sure??you ask questions if you do not understand what the doctor says. This??way you will know what you need to do. ??? Soak your bottomin a few inches of warm water for 10 to 15 minutes??at a time. You can do this 2 to 3 times each day. Do not add soap,??bubble bath, or anything to the water. ??? Use gqzy-yoc-vuuavkg medicines to treat your hemorrhoids. These??include ointments and creams to help with pain and swelling. You can??also use a product like witch german to help dry out the skin in the area. ??? To help with constipation: ??? Use stool softeners when needed. ??? Eat high-fiber foods. These include whole grains, fruits, and??vegetables. ??? Drink plenty of water and other fluids each day. This helps to??keep your stools soft. ??? Set a regular schedule to try and have a bowel movement. Do??not ignore the urge to go to the bathroom. Don???t hold it in. ??? Give yourself plenty of time to have a bowel movement, but do not linger on the toilet either, by sitting and reading for a long time. ??? Do mild exercise each day like taking a walk. ??? Avoid heavy lifting or straining while the hemorrhoid is healing. ?? What follow-up care is needed? If your problem does not get better, other care may be needed. Your doctor may ask you to make visits to the office to check on your progress. Be sure to keep these visits.?? What drugs may be needed? The doctor may order drugs to: ??? Help with pain and swelling ??? Ease itching ??? Soften stools ?? Will physical activity be limited? Working out can help with digestion. It might help keep you from having hard stools. Ask your doctor about the best kind of exercise for you. ?? What problems could happen? You may have very bad bleeding. ??? Sometimes, treatments do not work. Some hemorrhoids are very??large. You might need surgery for either of these. ?? When do I need to call the doctor? You have a lot of bleeding from your rectum. ??? Your bowel movement looks like tar. ??? You are not able to pass stool because of pain from your??hemorrhoids. ??? Your pain gets worse and is nothelped by vqwu-mxw-ikqends??medicines, warm water, or your home care. ??? You have a fever of 100.4??F (38??C) or higher. ?? Teach Back: Helping You Understand The Teach Back Method helps you understand the information we are giving you. After you talk with the staff, tell them in your own words what you learned. This helps to make sure the staff has described each thing clearly. It also helps to explain things that may have been confusing. Before going home, make sure you can do these: ??? I can tell you about my condition. ??? I can tell you what may help ease my pain. ??? I can tell you what I will do if I have blood in my rectum. Where can I learn more?[employer]https://familydoctor.or g/condition/hemorrhoids/National Digestive Disease Information Clearinghousehttps://www.niddk.nih.go v/health-information/digestive-diseases/hemorrhoids/definition-factsLast Reviewed Kuis3489-60-23Hjpdwdhh Information Use and Disclaimer:This generalized information is a limited summary of diagnosis,treatment, and/or medication information. It is not meant to be comprehensive and should be used asa tool to help the user understand and/or assess potential diagnostic and treatment options. It does NOT include all information about conditions, treatments, medications, side effects, or risks thatmay apply to a specific patient. It is not intended to be medical advice or a substitute for the medical advice, diagnosis, or treatment of a health care provider based on the health care provider's examination and assessment of a patient???s specific and unique circumstances. Patients must speak with a health care provider for complete information about their health, medical questions, and treatment options, including any risks or benefits regarding use of medications. This information does not endorse any treatments or medications as safe, effective, or approved for treating a specific patient. [employer] and its affiliates disclaim any warranty or liability relating to this information or the use thereof. The use of this information is governed by the Terms of Use, available at??htt ps://www.[employer]/en/know/lctzvefj-vvegmyytzjswb-goomcJsls Updated 10/25/21? Patient Care team information Care Team Personnel Name: Mauri OJEDA, Amelia Chase Position: [facility] PCO Associate Professional Member Role: Primary Care Nurse Name: Oz Sahni MD Position: [facility] Outreach Member Role: PCP Address: [address] [place] [address] Telecom: Name: Dary Esteves Position: [facility] Outreach Member Role: Primary Care Nurse Care Team Related Persons Name: RENY DENIS Name: CAROLYN NGUYEN Insurance Providers Guarantor name: FELIPA PINEDA Health Plan Information #: 1 Payer: [employer] Member Number: [id number] Policy Number: NA Group Number: NA Health Plan Information #: 2 P[facility]: [facility] Member Number: [id number] Policy Number: NA Group Number: [id number]
--- OUTSIDE RECORDS SUMMARY | 2024-10-28 16:44 | XMS_ITS | Encounter Summary ---
Author Organization [employer] Address 75 [facility] 7t [place] [address] Care Team Providers Care Vamp Marker Name Role Phone [place] [facility] Primary Care Provider [phone] Reason for Visit * Reason Onset Date Comments [facility] 10/20/2024 Encounter Details Date Type Department Care Team ([facility] st Contact Info) Description 10/20/2024 Telephone [facility] 230 [place], [place] [phone] Frida Knapp RN [facility] Social History Tobacco Use Types Packs/Day Years [...] encounter Miscellaneous Notes * Telephone Encounter - Frida Knapp RN - 10/20/2024 11:17 AM EST TC to [facility], no answer. L/M asking they call back regarding who is covering this patient formedication administration while her primary nurse is on vacation. documented in this encounter Plan of Treatment Upcoming Encounters Date Type Department Care Team (Late st Contact Info) Description 10/29/2024 1:30 PM EST Clinical Support [address] [address] Frida Knapp RN 11/13/2024 10:30 AM EDT Telemedicine [address] [address] 12/16/2024 11:30 AM EDT Office Visit [address] [address] Ginger Perez FNP [address] [place] [address] documented as of this encounter Visit Diagnoses Not on filedocumented in this encounter Additional Health Concerns Assessment Noted Time PHQ-9 Depression Total Score: 13 03/16/ 024 11:27 AM EDT documented as of this encounter Care Teams Vamp Marker Relationship Specialty Start Date End Date Ana GERALD Miles [address] [place] [address] PCP - General Family Medicine 08/13/22 documented as of this encounter
--- OUTSIDE RECORDS SUMMARY | 2024-10-28 16:44 | XMS_ITS | Encounter Summary ---
Author Organization [employer] Address 75 [facility] 7t [place] [address] Care Team Providers Care Rayon Coner Name Role Phone [facility] Primary Care Provider [phone] Encounter Details Date Type Department Care Team ([facility] st Contact Info) Description 12/20/2022 Telephone [facility] MED[facility]INE 230 [place], [place] [phone] [facility] 230 [place], [place] [phone] Social History Tobacco Use Types Packs/Day Years [...] - 12/20/2022 4:16 PM EDT Tc from [facility] requesting status on orders that needed to be sign by PCP on oct Please contact [facility] at [phone] documented in this encounter Plan of Treatment Upcoming Encounters Date Type Department Care Team (Late st Contact Info) Description 10/29/2024 1:30 PM EST Clinical Support [address] [address] Frida Knapp RN 11/13/2024 10:30 AM EDT Telemedicine [address] [address] 12/16/2024 11:30 AM EDT Office Visit [address] [address] Ginger Perez FNP [address] [place] [address] documented as of this encounter Visit Diagnoses Not on filedocumented in this encounter Additional Health Concerns Assessment Noted Time PHQ-9 Depression Total Score: 0 12/12/19 23 3:58 PM EDT documented as of this encounter Care Teams Rayon Coner Relationship Specialty Start Date End Date Ginger Perez FNP [address] [place] [address] PCP - General Family Medicine 08/13/22 documented as of this encounter
--- OUTSIDE RECORDS SUMMARY | 2024-10-28 16:44 | XMS_ITS | Encounter Summary ---
Author Organization [employer] Address 75 [facility] 7t [place] [address] Care Team Providers Care Cotton Wringer Name Role Phone [facility] Primary Care Provider [phone] Reason for Visit * Reason Onset Date Comments Nurse Triage 08/18/2024 Encounter Details Date Type Department Care Team ([facility] st Contact Info) Description 08/18/2024 Telephone [facility] MEDICINE 230 [place], [place] [phone] [facility] 230 [place], [place] [phone] Nurse Triage Social History Tobacco Use Types [...] AM EST Tc from pt returning call [phone] * Telephone Encounter - Francie Au RN - 08/18/2024 11:47 AM EST Triage call Pt reports abnormal vaginal bleeding which has been occurring for last several months. Pt reports spotting started yesterday and usually this is gone in a day. This time it is the second day of this spotting and drainage is black in color. Pt denies any other symptoms. 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 ASK [...] Description 10/29/2024 1:30 PM EST Clinical Support [facility] MEDICINE [address] [place] [address] Frida Knapp, OZZY 11/13/2024 10:30 AM EDT Telemedicine [facility] MEDICINE 230 [place] [address] 12/16/2024 11:30 AM EDT Office Visit [address] [address] Ginger Perez FNP 230 [place] [address] documented as of this encounter Visit Diagnoses Not on filedocumented in this encounter Additional Health Concerns Assessment Noted Time PHQ-9 Depression Total Score: 13 03/16/ 024 11:27 AM EDT documented as of this encounter Care Teams Cotton Wringer Relationship Specialty Start Date End Date Ginger Perez FNP 230 [place] [address] PCP - General Family Medicine 08/13/22 documented as of this encounter
--- OUTSIDE RECORDS SUMMARY | 2024-10-28 16:44 | XMS_ITS | Encounter Summary ---
Author Organization [employer] Address 75 [facility] 7t [place] [address] Care Team Providers Care Network Systems Operator Name Role Phone [facility] Primary Care Provider [phone] Reason for Visit * Reason Onset Date Comments Durable Medical Equipment 12/18/2022 Encounter Details Date Type Department Care Team ([facility] st Contact Info) Description 12/18/2022 Telephone [facility] MEDICINE 230 [place], [place] [phone] [facility] 230 [place] [address] Durable Medical Equipment Social History Tobacco Use [...] the largest size for disposable bed pads. Wellness Rn suggested a script for reusable bed pads [...] Description 10/29/2024 1:30 PM EST Clinical Support [address] [address] Frida Knapp RN 11/13/2024 10:30 AM EDT Telemedicine [address] [address] 12/16/2024 11:30 AM EDT Office Visit [address] [address] Ginger Perez FNP 230 [place] [address] documented as of this encounter Visit Diagnoses Not on filedocumented in this encounter Additional Health Concerns Assessment Noted Time PHQ-9 Depression Total Score: 0 12/12/19 23 3:58 PM EDT documented as of this encounter Care Teams Network Systems Operator Relationship Specialty Start Date End Date Ginger Perez FNP [address] [place] [address] PCP - General Family Medicine 08/13/22 documented as of this encounter
--- OUTSIDE RECORDS SUMMARY | 2024-10-28 16:44 | XMS_ITS | Encounter Summary ---
Author Organization [employer] Address 75 [facility] 7t [place] [address] Care Team Providers Care Overnight Caregiver Name Role Phone [facility] Primary Care Provider [phone] Reason for Visit * Reason Onset Date Comments Medication Question 10/15/2024 Encounter Details Date Type Department Care Team ([facility] st Contact Info) Description 10/15/2024 Telephone [facility] MEDICINE 230 [place], [place] [phone] [facility] 230 [place], [place] [phone] Medication Question Social History Tobacco Use Types [...] Telephone Encounter - Kimberly Michael RN - 10/16/2024 2:58 PM EST Noted. RN confirmed referral to pharmacy and Mounjaro RX were sent. 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 Patient states she has a VNA Nurse,Molly, who comes to her house 2 x a day to give him his medication and her GRINDER NEEDLE TIP Roma comes to all her appointments with her. * Telephone Encounter - Estela Avelar RN - 10/15/2024 2:30 PM EST Additional call from pharmacy, pt would also like to go back to having medbox, requesting referral from PCP. * Telephone Encounter - Estela Avelar RN - 10/15/2024 1:36 PM EST Incoming phone call from [facility] (Ariela) who stated that the pt is requesting refills on 2 medications, would like PCP review: - Clonazepam 1mg TID: previously prescribed by GERALD Webb from [facility]. Pt is due, last pickedup on 09/08/24. Pharmacy is wondering if PCP can take over prescribing this medication. - Mounjaro 5mg: picked up 10/09/24 however pt lost the medication somewhere between [facility] and her home. Pharmacy is asking for new script and will then call insurance to get authorization on early refill. Advised pharmacy that PCP out of office today and will be in office tomorrow. Ariela verbalized understating. documented in this encounter Plan of Treatment Upcoming Encounters Date Type Department Care Team (Late st Contact Info) Description 10/29/2024 1:30 PM EST Clinical Support [facility] MEDICINE [address] [place] [address] Frida Knapp RN 11/13/2024 10:30 AM EDT Telemedicine [address] [address] 12/16/2024 11:30 AM EDT Office Visit [address] [address] Ginger Perez FNP [address] [place] [address] documented as of this encounter Visit Diagnoses Not on filedocumented in this encounter Additional Health Concerns Assessment Noted Time PHQ-9 Depression Total Score: 13 024 11:27 AM EDT documented as of this encounter Care Teams Overnight Caregiver Relationship Specialty Start Date End Date Ginger Perez FNP [address] [place] [address] PCP - General Family Medicine 08/13/22 documented as of this encounter
--- OUTSIDE RECORDS SUMMARY | 2024-10-28 16:44 | XMS_ITS | Encounter Summary ---
Author Organization [employer] Address 75 [facility] 7t [place] [address] Care Team Providers Care Medical Detailist Name Role Phone [facility] Primary Care Provider [phone] Encounter Details Date Type Department Care Team (Late st Contact Info) Description 08/22/2022 Refill [facility] MEDICINE 230 [place], [place] [phone] [facility] 230 [place], [place] [phone] Muscle spasm Social History Tobacco Use Types [...] Description 10/29/2024 1:30 PM EST Clinical Support [facility] MEDICINE [address] [place] [phone] Frida Knapp RN 11/13/2024 10:30 AM EDT Telemedicine [facility] MEDICINE [address] [place] [address] 12/16/2024 11:30 AM EDT Office Visit [facility] MEDICINE [address] [place] [address] Ginger Perez FNP [address] [place] [address] documented as of this encounter Visit Diagnoses Diagnosis Muscle spasm Spasm of muscle documented in this encounter Additional Health Concerns Assessment Noted Time PHQ-9 Depression Total Score: 9 08/21/20 10:14 AM EST documented as of this encounter Care Teams Medical Detailist Relationship Specialty Start Date End Date Ginger Perez FNP [address] [place] [address] PCP - General Family Medicine 08/13/22 documented as of this encounter
--- OUTSIDE RECORDS SUMMARY | 2024-10-28 16:44 | XMS_ITS | Encounter Summary ---
Author Organization [employer] Address 75 [facility] 7t [place] [address] Care Team Providers Care Sorter Pricer Name Role Phone Ginger Perez Primary Care Provider [phone] Reason for Referral * Consultation (Routine) - Authorized Specialty Diagnoses / Procedures Referred By Melita bingham Referred To Contact Pharmacy Diagnoses Type 2 diabetes mellitus with chronic kidney disease, with long-term current use of insulin, unspecified CKD stage (CMS/HCC) Ginger Perez FNP 230 [place] [address] Phone: tel: fax: Referral ID Status Reason Start Date Expiration Date Visits Requested Visits Authorized [id number] Authorized Continuity of Care 10/16/2024 10/16/2025 6 6 Encounter Details Date Type Department Care Team (Late st Contact Info) Description 10/16/2024 Orders Only [facility] 230 [place], [place] [phone] Ginger Perez FNP 230 [place], [place] [phone] Type 2 diabetes mellitus with chronic kidney disease, with long-term current use of insulin, unspecified CKD stage (CMS/HCC) (Primary Dx) Social History Tobacco Use Types [...] Description 10/29/2024 1:30 PM EST Clinical Support [address] [address] Frida Knapp, OZZY 11/13/2024 10:30 AM EDT Telemedicine [address] [address] 12/16/2024 11:30 AM EDT Office Visit [address] [address] Ginger Perez FNP 230 [place] [address] Scheduled Referrals Name Type Priority Associated Diagnoses Orde r Schedule Referral to Pharmacy MTM Outpatient Referral Routine Type 2 diabetes mellitus with chronic kidney disease, with long-term current use of insulin, unspecified CKD stage (CMS/HCC) Ordered: 10/16/2024 documented as of this encounter Visit Diagnoses Diagnosis Type 2 diabetes mellitus with chronic kidney disease, with long-term current use of insulin, unspecified CKD stage (CMS/HCC)- Primary documented in this encounter Additional Health Concerns Assessment Noted Time PHQ-9 Depression Total Score: 13 024 11:27 AM EDT documented as of this encounter Care Teams Sorter Pricer Relationship Specialty Start Date End Date Ginger Perez FNP 230 [place] [address] PCP - General Family Medicine 08/13/22 documented as of this encounter
--- OUTSIDE RECORDS SUMMARY | 2024-10-28 16:44 | XMS_ITS | Encounter Summary ---
Author Organization [employer] Address 75 [facility] 7t [place] [address] Care Team Providers Care Watch Adjuster Name Role Phone [facility] Primary Care Provider [phone] Encounter Details Date Type Department Care Team (Late st Contact Info) Description 09/28/2024 Orders Only [facility] 230 [place], [place] [phone] [facility] 230 [place], [place] [phone] Abnormal TSH (Primary Dx) Social History Tobacco [...] Description 10/29/2024 1:30 PM EST Clinical Support [address] [address] Frida Knapp RN 11/13/2024 10:30 AM EDT Telemedicine [address] [address] 12/16/2024 11:30 AM EDT Office Visit [address] [address] documented as of this encounter Procedures Procedure Name Priority Date/Time Associated Diagnosis Comments TSH W/REFLEX TO FT4 Routine 10/01/2024 9 :58 AM EST Abnormal TSH THYROID PEROXIDASE ANTIBODIES Routine 10/01/2024 9:58 AM EST Abnormal TSH TRAB (TSH RECEPTOR BINDING ANTIBODY) Routine 10/01/2024 9:58 AM EST Abnormal TSH documented in this encounter Results * TRAb (TSH Receptor Binding Antibody) (10/01/2024 9:58 AM EST) TRAb (TSH Receptor Binding Antibody) <1.00 <=2.00 IU/L [facility] Comment:This test was perfor med using the TRAb Antibody ELISAmethod which is standardized against the memorial medical centerInternational Standard 90/672 and is reported inInternational Units (IU/L). The reference rangereported was established specifically for this testmethod.THIS TEST WAS PERFORMED AT:[employer] [place] [id number] IRBY MD,PHD Blood Venous blood specimen / Unknown 10/01/2024 9:58 AM EST 10/01/2024 11:04 AM EST [facility] LAB BLOOD ORDERABLES Final Re sult Performing Organization Address [facility]/ZIP Co de Phone Number [facility] [address] [place] [phone] * Thyroid Peroxidase Antibodies (10/01/2024 9:58 AM EST) Thyroid Peroxidase Antibodies <1 <9 IU/mL [facility] Comment:THIS TEST WAS PERFOR MED AT:[employer] [address] [id number] HARO MD Blood Venous blood specimen / Unknown 10/01/2024 9:58 AM EST 10/01/2024 11:04 AM EST [facility] LAB BLOOD ORDERABLES Final Re sult Performing Organization Address [facility] Co de Phone Number [facility] [address] [place] [address] [phone] * (ABNORMAL) TSH W/Reflex to FT4 (10/01/2024 9:58 AM EST) TSH reflex Free T4 0.27(L) 0.32 - 4.0 uIU/mL [facility] Blood Venous blood specimen / Unknown 10/01/2024 9:58 AM EST 10/01/2024 11:04 AM EST [facility] LAB BLOOD ORDERABLES Final Re sult [facility] [address] [place] [address] [phone] documented in this encounter Visit Diagnoses Diagnosis Abnormal TSH- Primary documented in this encounter Additional Health Concerns Assessment Noted Time PHQ-9 Depression Total Score: 13 024 11:27 AM EDT documented as of this encounter Care Teams Watch Adjuster Relationship Specialty Start Date End Date Ginger Perez FNP [address] [place] [address] PCP - General Family Medicine 08/13/22 documented as of this encounter
--- OUTSIDE RECORDS SUMMARY | 2024-10-28 16:45 | XMS_ITS | Encounter Summary ---
Author Organization [employer] Address 75 [facility] 7t [place] [address] Care Team Providers Care Strategic Analyst Name Role Phone [facility] Primary Care Provider [phone] Reason for Visit * Reason Onset Date Comments Results 10/06/2024 Encounter Details Date Type Department Care Team ([facility] st Contact Info) Description 10/06/2024 Telephone [facility] MEDICINE 230 [place], [place] [phone] [facility] 230 [place], [place] [phone] Results Social History Tobacco Use Types Packs/Day [...] encounter Miscellaneous Notes * Telephone Encounter - Ada George MA - 10/06/2024 9:57 AM EST LVM informing pt to call back, please inform pt MRI was normal\negative. * Telephone Encounter - Ada George MA - 10/06/2024 9:56 AM EST ----- Message from [facility] sent at 10/05/2024 3:54 PM EST ----- Please let patient know that brain MRI was negative. Thank you! documented in this encounter Plan of Treatment Upcoming Encounters Date Type Department Care Team (Late st Contact Info) Description 10/29/2024 1:30 PM EST Clinical Support [facility] MEDICINE [address] [place] [address] Frida Knapp RN 11/13/2024 10:30 AM EDT Telemedicine [facility] MEDICINE [address] [place] [address] 12/16/2024 11:30 AM EDT Office Visit [facility] MEDICINE [address] [place] [address] Ginger Perez FNP [address] [place] [address] documented as of this encounter Visit Diagnoses Not on filedocumented in this encounter Additional Health Concerns Assessment Noted Time PHQ-9 Depression Total Score: 13 024 11:27 AM EDT documented as of this encounter Care Teams Strategic Analyst Relationship Specialty Start Date End Date Ginger Perez FNP [address] [place] [address] PCP - General Family Medicine 08/13/22 documented as of this encounter
--- OUTSIDE RECORDS SUMMARY | 2024-10-28 16:45 | XMS_ITS | Clinical Summary ---
Demographics Address [address] [place] [address] Mobile Phone Work Phone Home Phone Preferred Language en Marital Status Single Worship Affiliation Unknown Race Other Race Ethnic Group or Author Organization [employer] Address [address] [facility] [address] [place] [address] Care Team Providers Care Database Management Specialist Name Role Phone [facility] Primary Care Provider [phone] Allergies Active Allergy Reactions Criticality Noted Date Comments Iodinated Contrast Media 09/15/2024 Mushroom Extract Complex (Obsolete) Anaphylaxis High 04/14/2021 Medications * This document [...] hyperglycemia, with long-term current use of insulin ([facility]) Use as directed 100 each 11 023 Active Reguloid 57.6 % powderIndicatio ns:Constipation , unspecified constipation type MIX 1 TEASPOONFUL IN 8 OUNCES OF WATER OR JUICE AND DRINK EVERY MORNING 284 g 023 Active Blood Glucose Monitoring Suppl (GNP Easy Touch Glucose Meter) deviceIndicatio ns:Type 2 diabetes mellitus with hyperglycemia, with long-term current use of insulin ([facility]) Use as directed to check blood sugar four times daily 1 each 023 Active glucose blood test stripIndication s:Type 2 diabetes mellitus with hyperglycemia, with long-term current use of insulin ([facility]) Use as directed to check blood sugar [...] hyperglycemia, with long-term current use of insulin ([facility]) USE TO TEST BLOOD SUGAR FOUR TIMES DAILY 100 each 11 023 Active albuterol (2.5 MG/3ML) 0.083% nebulizer solutionIndicat ions:Moderate persistent asthma without complication INHALE 1 AMPULE USING A NEBULIZER EVERY 6 HOURS NEEDED FOR WHEEZING 90 mL 11 024 Active Blood Pressure kitIndications: Type 2 diabetes mellitus with hyperglycemia, with long-term current use of insulin ([facility]) Use as directed 1 kit 024 Active [...] 4 times daily. 10 mL 024 Active gabapentin (Neurontin) 300 MG capsuleIndicati [...] hyperglycemia, with long-term current use of insulin ([facility]) USE DIRECTED FIVE TIMES DAILY 100 each 11 Active tiZANidine (Zanaflex) 4 MG tabletIndicatio ns:Muscle spasm TAKE 1 TABLET BY MOUTH EVERY 8 HOURS NEEDED. DO NOT EXCEED 3 TABLETS IN 24 HOURS 90 tablet 11 Active albuterol (Ventolin HFA) 108 (90 Base) MCG/ACT inhaler INHALE 2 PUFFS BY MOUTH FOUR TIMES DAILY NEEDED 18 g 11 Active oxyCODONE (Roxicodone) 5 MG immediate release tabletIndicatio ns:Low back pain at multiple sites Take 1 tablet (5 mg) by mouth every 6 (six) hours if needed for severe pain. 12 tablet Active GaviLAX 17 GM/SCOOP powderIndicatio ns:Constipation , unspecified constipation type DISSOLVE 17 GRAM (1 CAPFUL) IN 8 OUNCES OF JUICE OR WATER AND TAKE BY MOUTH TWICE DAILY FOR 3 DAYS DIRECTED 510 g 2 Active Jardiance 10 MG Take 10 mg [...] September 22, 2024. 1 tablet 025 Active neomycin-bacitr acin-polymyxin (Neosporin) 5-400-5000 ointment Apply topically 3 times daily. Active clonazePAM (KlonoPIN) 1 MG tabletIndicatio ns:Mixed anxiety and depressive disorder Take 1 tablet (1 mg) by mouth 3 times daily for 28 days. 84 tablet 025 2024 Active Tirzepatide (Mounjaro) 5 MG/0.5ML solution auto-injectorIn dications:Type 2 diabetes mellitus with chronic kidney disease, with long-term current use of insulin, unspecified CKD stage (CMS/HCC) Inject 5 mg under the skin 1 (one) time per week. 2 mL 3 025 Active clonazePAM (KlonoPIN) 1 MG tabletIndicatio ns:Mixed anxiety and depressive disorder Take 1 tablet (1 mg) by mouth 3 times daily. 90 tablet 5 024 2024 Discontinued(R eorder (will not trigger notification to Pharmacy)) Tirzepatide (Mounjaro) 5 MG/0.5ML solution auto-injector Inject 5 mg under the skin 1 (one) time per week. 2 mL 3 024 2024 Discontinued(R eorder (will not trigger notification to Pharmacy)) Hospital, Clinic, or Other Facility Administered Medication [...] [facility] with liver elastography [facility]. Reports with hepatic steatosis with evidence of advanced chronic liver disease ? 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 EEG's normal. Per neurology notes, possible dyskenisa s/t hx of antipsychotic medications which patient is no longer taking. Not currently taking any anti- seizure medications. No seizure episodes >2 months. Episodes triggered by emotional stress. Bariatric surgery status 09/29/2022 Overview (09/29/2022): ? ? Lap band was removed approx 8 years ago in [facility]; repeat lap band through [facility] without weight loss. Very upset by experience at [facility]. Currently working with [facility] weight mgnmt for removal of lap band. Assessment & Plan (05/03/2023 10:30 AM EDT): ?? Details of current weight mngmt plan through [facility] unclear. Will request notes and follow up as indicated Obstructive sleep apnea 09/29/2022 Overview (06/04/2023): ?? Compliant with BiPAP ?? Followed by [facility] neurology and sleep clinic. Dr. Temple Gender dysphoria in adult 09/29/2022 Overview (09/29/2022): ?? Interested in pursuing top and bottom gender reassignment surgery ?? Not a candidate for hormone therapy Healthcare maintenance 09/29/2022 Overview (02/25/2024): Mammo: 07/2022--Birads 2 Pap: HPV negative 2019, no cytology on record. C-scope: Upcoming colonoscopy [facility] GI BMD: Routine age 63 Chronic pain [...] medication management. Any issues or concerns, contact [facility]. All his questions were answered and I [...] be left alone, encouraged to request increased BATTERY CHECKER hours. Will increase bedtime Gabapentin to 1200 [...] of family members and/or 1 of 2 BATTERY CHECKER's always present. Patient was able to contract [...] prescriber. We did not discuss my planned alf today. F/U with me in 1 month. [...] morning Jardiance 25 mg daily Followed by [facility] Development Scientist Has dexcom CGM Metformin stopped due to [...] ?? Continue to follow as scheduled with [facility] DM educator ?? Will task RN's to contact patients hearing care practitioner to ensure that [facility] is aware of med change. ?? Strongly encouraged patient to continue with BATTERY CHECKER/[facility] services due to multiple chronic conditions and patient's difficulty self managing care. Patient verbalizes understanding and agrees to plan Assessment & Plan (05/03/2023 10:15 AM EDT): ?? Continue to work with [facility] DM educator Henny-will request records and recent [...] Encounters Date Type Department Care Team Description 10/23/2024 Telephone [facility] [address] [place] [phone] Ginger Perez FNP 10/20/[address] [address] Frida Knapp, RN [facility] Homecare 10/16/2024 Orders Only [facility] [address] [place] [phone] Ginger Perez FNP Type 2 diabetes mellitus with chronic kidney disease, with long-term current use of insulin, unspecified CKD stage (CMS/HCC) (Primary Dx) 10/15/2024 Refill [facility] [address] [place] [address] [place] [address] Frida Knapp, RN Mixed anxiety and depressive disorder 10/15/[address] [address] Ginger Perez FNP Medication Question 10/09/[address] [address] Ginger Perez FNP Call Back Request 10/06/[address] [address] Ginger Perez FNP Results 10/05/[address] [address] Kimberly Michael, RN Results 10/05/2024 Orders Only [facility] [address] [place] [address] Ginger Perez FNP Subclinical hyperthyroidism (Primary Dx) 10/01/2024 Telephone [facility] [address] [place] [address] Ginger Perez FNP Nurse Triage 10/01/2024 Telephone [facility] [address] [place] [address] AnaGinger canales FNP Durable Medical Equipment (DME: Disposable Underpad) 10/01/2024 Orders Only [facility] [address] [place] [address] Ginger Perez FNP 09/29/2024 Telephone [facility] [address] [place] [address] Marisabel Kaye, RN Results 09/28/2024 Orders Only [facility] [address] [place] [address] Ginger Perez FNP Abnormal TSH (Primary Dx) 09/15/2024 Refill [facility] [address] [place] [address] iGnger Perez FNP 09/15/[address] [address] Angelic Keys, RN Care Coordination 09/14/2024 11:30 AM EST Office Visit [facility] [facility] [place] [address] Ginger Perez FNP Type 2 diabetes mellitus with hypoglycemia without coma, with long-term current use of insulin ([facility]) (Primary Dx); Tremor of hands and face; Decreased hearing of left ear 09/14/2024 Orders Only [facility] [address] [place] [address] SadlerGinger canales FNP 09/14/2024 Travel 09/08/2024 10:15 AM EST Office Visit [address] [place] [address] Corbin Hughes CNM Postmenopausal bleeding (Primary Dx); Epidermal cyst of vulva 09/08/2024 Travel 08/18/2024 Telephone [facility] [address] [place] [address] Ginger Perez FNP Nurse Triage 08/13/2024 Orders Only GENERIC EXTERNAL DATA DEPARTMENT Provider, Generic External Data 08/06/2024 Refill [facility] [address] [place] [address] Sadler, [place], LARD REFINER Chronic pain syndrome from Last 3 Months Immunizations Name Administration [...] the past 12 months, has t he [employer], gas, oil or water company threatened to [...] 09/14/2024 11:41 AM EST Plan of Treatment Upcoming Encounters Date Type Department Care Team (Late st Contact Info) Description 10/29/2024 1:30 PM EST Clinical Support [address] [address] Frida Knapp, RN 11/13/2024 10:30 AM EDT Telemedicine [address] [address] 12/16/2024 11:30 AM EDT Office Visit [address] [place] [address] Sadler, Ginger, LARD REFINER [address] [place] [address] Health Maintenance Due Date Last Done Comments CT Colonography 1965 Colonoscopy 1965 Colorectal Cancer Screening 1965 FIT DNA/Cologuard 1965 FIT 1965 FOBT 1965 Sigmoidoscopy 1965 Diabetes: Foot Exam 1973 Eye Exam 1973 Alcohol/Substance Use Screening 1975 Hepatitis A Vaccines (1 of 2 - Risk 2-dose series) 1982 Zoster Vaccines (2 of 2) 06/07/2023 04/12/2023 RSV Patients and Patients Aged 60 years or older (1 - Risk 60-74 years 1-dose series) 2023 COVID-19 Vaccine ( season) 2024 Influenza Vaccine (#1) 2024 , 06/21/2022, 07/06/2019, Additional history exists Diabetes: Hemoglobin A1C 08/12/2024 024, 02/17/2024, 11/13/2023, Additional history exists Depression Monitoring (PHQ-9) 09/16/2024 03/16/2024, 03/16/2024 SDOH Screening 10/03/2024 10/03/2023 Depression Screening 03/16/2025 03/16/2024, 03/16/20 24 Mammogram [...] Procedure Name Priority Date/Time Associated Diagnosis Comments AMB REFERRAL TO AUDIOLOGY Routine 10/05/2024 Decreased hearing of left ear T4, FREE Routine 10/01/2024 9:58 AM EST TRAB (TSH RECEPTOR BINDING ANTIBODY) Routine 10/01/2024 9:58 AM EST Abnormal TSH THYROID PEROXIDASE ANTIBODIES Routine 10/01/2024 9:58 AM EST Abnormal TSH TSH W/REFLEX TO FT4 Routine 10/01/2024 9 [...] with long-term current use of insulin (CMS/HCC) SYPHILIS SCREEN Routine 09/14/2024 1:25 PM EST [...] URINE Routine 08/13/2024 5:21 AM EST POCT GLYCATED HEMOGLOBIN, TOTAL Routine 05/13/2024 12:23 [...] Recently Relevant to Health Maintenance Results * Referral to Audiology (10/05/2024) [facility] OUTPATIENT REFERRAL ORDERABLE S Final Result * (ABNORMAL) TSH W/Reflex to FT4 (10/01/2024 9:58 AM EST) Only the most recent of2 resultswithin the time period is included. TSH reflex Free T4 0.27(L) 0.32 - 4.0 uIU/mL [facility] Blood Venous blood specimen / Unknown 10/01/2024 9:58 AM EST 10/01/2024 11:04 AM EST [facility] LAB BLOOD ORDERABLES Final Re sult Performing Organization Address [facility]/ZIP Co de Phone Number [facility] [address] [place] [address] [phone] * Thyroid Peroxidase Antibodies (10/01/2024 9:58 AM EST) Thyroid Peroxidase Antibodies <1 <9 IU/mL [facility] Comment:THIS TEST WAS PERFOR MED AT:[employer] [address] [id number] HARO MD Blood Venous blood specimen / Unknown 10/01/2024 9:58 AM EST 10/01/2024 11:04 AM EST [facility] LAB BLOOD ORDERABLES Final Re sult Performing Organization Address [facility]/ZIP Co de Phone Number [facility] [address] [place] [phone] * TRAb (TSH Receptor Binding Antibody) (10/01/2024 9:58 AM EST) TRAb (TSH Receptor Binding Antibody) <1.00 <=2.00 IU/L [facility] Comment:This test was perfor med using the TRAb Antibody ELISAmethod which is standardized against the International Standard 90/672 and is reported inInternational Units (IU/L). The reference rangereported was established specifically for this testmethod.THIS TEST WAS PERFORMED AT:[employer] [id number] [place] [address]VBDGTSHSALEEM IRBY MD,PHD Blood Venous blood specimen / Unknown 10/01/2024 9:58 AM EST 10/01/2024 11:04 AM EST [facility] LAB BLOOD ORDERABLES Final Re sult [facility] [address] [place] [phone] * HIV-1/2 Antigen and Antibodies, Fourth Generation, with Reflexes (10/01/2024 9:58 AM EST) Only the most recent of2 resultswithin the time period is included. Pathologist [facility] HIV AB/AG Nonreactive Nonreactive [facility] Comment:HIV-1 p24 Ag and/or HIV-1/HIV-2 Ab not detected.A test result that is nonreactive does not exclude thepossibility of exposure to or infection with HIV-1 and/orHIV-2. Nonreactive results in this assay for individualswith prior exposure to HIV-1 and/or HIV-2 may be due toantigen and antibody levels that are below the limit ofdetection of this assay.The [employer] HIV Ag/Ab Combo assay result andsupplemental assay results should be interpreted inconjunction with the patient's clinical presentation,history and other laboratory results. If the results areinconsistent with clinical evidence, additional testing issuggested to confirm the result. Blood Venous blood specimen / Unknown 10/01/2024 9:58 AM EST 10/01/2024 11:04 AM EST [facility] LARD REFINER LAB BLOOD ORDERABLES Final Re sult Performing Organization Address [facility] de Phone Number [facility] [address] [place] [address] [phone] * T4, Free (10/01/2024 9:58 AM EST) Only the most recent of2 resultswithin the time period is included. Free T4 (Free Thyroxine) 0.91 0.71 - 1.85 ng/dL [facility] 10/01/2024 9:58 AM EST 10/01/2024 11:04 AM EST [facility] LARD REFINER LAB BLOOD ORDERABLES Final Re sult Performing Organization Address [facility] de Phone Number [facility] [address] [place] [phone] * MR Brain w/o Contrast (09/24/2024 3:41 PM EST) Anatomical Region Laterality Modality Brain Magnetic Resonan ce 09/24/2024 3:41 PM EST Narrative 09/25/2024 7:34 AM EST ? [facility] ?[address] ?[place] [address] ? Magnetic Resonance Report ? Signed ? Patient: McmahanHilda ?MR#: [id number] ?? [id number] ? : 1965 ?Acct:[id number] ? Age/Sex: 59 / F ?ADM Date: 09/24/24 ? Loc: HO.MRI ? Attending Dr: Ginger Perez LARD REFINER ? Ordering Physician: Gingre Perez LARD REFINER ?? Date of Service: 09/24/24 ?? Procedure(s): MR head/brain wo con ?? Accession Number(s): [id number] ? cc: AnaGinger LARD REFINER ? EXAMINATION: ??MR BRAIN WITHOUT IV CONTRAST [...] ??Kingston Chavis MD ??09/25/2024 07:31 AM EST ? Dictated By: ?Kingston Chavis MD ? Signed By: ?<Electronically signed by Kingston Chavis MD in OV> ?09/25/24 0731 ? DD/ 1541 ? TD/TT: 09/24/24 1624 ? Prototype Carpenter: ? Procedure Note Rosey, Image - 09/25/2024 [place] [address] Magnetic Resonance Report Signed Patient: Hilda McmahanMR#: [id number] : 1965Acct:[id number] Age/Sex: 59 / FADM Date: 09/24/24 Loc: HO.MRI Attending Dr: Ginger Perez LARD REFINER Ordering Physician: Ginger Perez Date of Service: 09/24/24 Procedure(s): MR head/brain wo con Accession Number(s): [id number] cc: Ginger Perez EXAMINATION: MR BRAIN WITHOUT [...] 09/25/24 0731 DD/ 1541 TD/TT: 09/24/24 1624 Prototype Carpenter: [facility] IMG MRI PROCEDURES Final Resu lt * Syphilis Screen (09/14/2024 1:25 PM EST) Pathologist [facility] Syphilis Screen Nonreactive Nonreactive [facility] Blood 09/14/2024 1:25 PM EST 09/14/2024 4:07 PM EST [facility] LAB BLOOD ORDERABLES Final Re sult [facility] [address] [place] [phone] * (ABNORMAL) CBC auto differential (09/14/2024 1:25 PM EST) White Blood Count 7.5 4.8 - 10.8 X10*3/uL [facility] Red Blood Count 5.24 4.20 - 5.50 X10*6/uL [facility] Hemoglobin 13.7 12.0 - 16.0 g/dl [facility] Hematocrit 43.5 37.0 - 47.0 % [facility] Mean Corpuscular Volume 83.0 80.0 - 98.0 fL [facility] Mean Corpuscular Hemoglobin 26.1(L) 27.0 - 33.0 pg [facility] Mean Corpuscular HGB Conc 31.5 31.0 - 35.0 g/dl [facility] Red Cell Distribution Width 14.3 11.0 - 16.0 % [facility] Platelet Count 220 160 - 400 X10*3/uL [facility] Mean Platelet Volume 12.2 9.4 - 12.3 fL [facility] Neutrophils Percent Auto 54.9 45 - 73 % [facility] Imm Gran Pct Auto 0.8(H) 0.0 - 0.4 % [facility] Lymphocytes Percent Auto 33.4 20 - 40 % [facility] Monocytes Percent Auto 6.4 2 - 11 % [facility] Eosinophils Percent Auto 4.2(H) 0 - 4 % [facility] Basophils Percent Auto 0.3 0 - 2 % [facility] NRBC Pct Auto 0.0 0.0 - 0.2 /100WBC [facility] Neutrophils Absolute Auto 4.1 2.0 - 8.3 x10*3/uL [facility] Imm Gran Abs Auto 0.06(H) 0.00 - 0.03 X10*3/uL [facility] Lymphocytes Absolute Auto 2.5 1.2 - 4.9 X10*3/uL [facility] Monocytes Absolute Auto 0.5 0.1 - 1.2 X10*3/uL [facility] Eosinophils Absolute Auto 0.3 0.0 - 0.4 X10*3/uL [facility] Basophils Absolute Auto 0.0 0.0 - 0.2 X10*3/uL [facility] NRBC Abs Auto 0.000 0.0 - 0.012 X10*3/uL [facility] Blood Venous blood specimen / Unknown 09/14/2024 1:25 PM EST 09/14/2024 4:07 PM EST [facility] LAB BLOOD ORDERABLES Final Re sult Performing Organization Address [facility] Co de Phone Number [facility] [address] [place] [phone] * (ABNORMAL) Lipid Panel, Standard (09/14/2024 1:25 PM EST) Triglycerides 123 <150 mg/dL [facility] Comment:Desirable Triglyceri de: less than 150 mg/dLBorderline High Triglyceride 150-199 mg/dLHigh Triglyceride: 200-499 mg/dLVery High Triglyceride: greater than or equal to 5OO mg/dL Cholesterol 146 <200 mg/dL [facility] Comment:Desirable Cholestero l: less than 200 mg/dLBorderline High Cholesterol: 200-239 mg/dLHigh Cholesterol: greater than 239 mg/dL LDL Cholesterol Calculated 83 <100 mg/dL [facility] Comment:Desirable LDL: less than 100 mg/dLNear Optimal/Above Optimal LDL: 110- 129 mg/dLBorderline High LDL: 130-159 mg/dLHigh LDL: 160-189 mg/dLVery High LDL: greater than or equal to 190 mg/dL HDL Cholesterol 39(L) >40 mg/dL [facility] Comment:Desirable HDL: great er than 40 mg/dL Note: This HDL assay may give artificially low results in patients with liver disease. Blood Venous blood specimen / Unknown 09/14/2024 1:25 PM EST 09/14/2024 4:07 PM EST [facility] LAB BLOOD ORDERABLES Final Re sult Performing Organization Address [facility]/ZIP Co de Phone Number [facility] [address] [place] [phone] * STI testing add on (NG, CT, Trich) (09/08/2024 9:30 AM EST) Trichomonas (NAAT) Not Detected Not Detected [facility] Comment:Methodology: Transcr iption Mediated Amplification(TMA)The analytical performance characteristics of thisassay have been determined by [place]. The modificationshave not been cleared or approved by the FDA. Thisassay has been validated pursuant to the CLIAregulations and is used for clinical purposes.For additional information, please refer tohttp://education.[employer]/faq/Trichomonastma (This link is being providedfor information/educational purposes only).THIS TEST WAS PERFORMED AT:[employer] [id number] [place] [phone] IRBY MD,PHD CTNG Ref Lab Not Detected Not Detected [facility] NG Ref Lab Not Detected Not Detected [facility] Comment:Methodology: Transcr iption Mediated Amplification(TMA) to detect RNA.The analytical performance characteristics of thisassay, when used to test [employer] specimens havebeen determined by [employer]. The modificationshave not been cleared or approved by the FDA.This assay has been validated pursuant to the CLIAregulations and is used for clinical purposes.For additional information, please refer tohttps://education.[employer]/faq/RKV115(This link is being provided for information/educational purposes only).THIS TEST WAS PERFORMED AT:[employer] [id number] [place] [phone] IRBY MD,PHD ThinPrep?? vial Cervix uteri structure / Unknown 09/08/2024 9:30 AM EST 09/09/2024 10:20 AM EST Narrative [facility] - 09/13/2024 11:00 PM EST Collection Date: [id number] by: WON Cardenas: Cervix Corbin Hughes [facility] [employer] LAB CYTOLOGY ORDERABLES F inal Result [facility] [address] [place] [phone] * Pap Smear (09/08/2024 9:30 AM EST) Swab Cervix uteri structure / Unknown 09/08/2024 9:30 AM EST 09/09/2024 10:20 AM EST Narrative [facility] - 09/17/2024 3:06 PM EST ----- ------- Name: Hilda Mcmahan ? Age/Sex: 59/F ? : 1965 Unit#: [id number] ?? Attend Dr: CORBIN HUGHES ?Re09/08/24 ?Status: DEP REF ? Location: HO.LNP ?Disch: ? ----- ------- SPEC : [id number] ?RECD: 09/09/24-0 ? STATUS: ??SOUT ? REQ NUM: [id number] ? LORI: 09/08/24 ? SUBM DR: CORBIN HUGHES CNM ? ENTERED: ??09/09/24-1044 ?SP TYPE: Pap Smr ?OTHR DR: ? ORDERED: ??Pap Smear ? Interpretation ?? Satisfactory for evaluation. ?? Negative for intraepithelial lesion or malignancy. ?? No endocervical cells seen. ? HPV High Risk: ??Negative ? HPV Genotyping 16: ??Negative ?? HPV Genotyping 18: ??Negative ?Clinical Information LMP: Postmenopausal Previous PAP test: WNL Other history: Postmenopausal bleeding ? Material Received ?? ThinPrep-Cervical ----- ------- Signed (signature on file) TALIB Roche (ASCP) 09/17/24 4094 ? ----- ------- ? END OF REPORT ? us Corbin Hughes CNM LAB CYTOLOGY ORDERABLES F inal Result [facility] [address] [place] [address] [phone] * BI Mammogram Screening Tomosynthesis Bilateral (08/27/2024 1:05 PM EST) Anatomical Region Laterality Modality Breast Bilateral Mammography 08/27/2024 1:05 PM EST Narrative 09/08/2024 4:57 PM EST ? [facility] ? [address] ?[place] [address] ? Mammography Report ? Signed ? Patient: Hilda Mcmahan ?MR#: [id number] ?? [id number] ? : 1965 ?Acct:[id number] ? Age/Sex: 59 / F ?ADM Date: //24 ? Loc: HO.MAMMO ? Attending Dr: Oz Sahni MD ? Ordering Physician: Ginger Perez ?Results: 1Nega ?? tive ? Date of Service: //24 ?Follow Up: 1 Year From Orig ?? inal Mammogram ? Procedure(s): MM tomosynthesis screening BI ?? Accession Number(s): [id number] ? cc: Ana,Ginger LARD REFINER ? EXAMINATION: ?? MM SCREENING DIGITAL BREAST [...] ??Pepper Mercer DO ??09/08/2024 04:54 PM EST ? Dictated By: ?Sylvie,Pepper DO ? Signed By: ?<Electronically signed by Pepper Mercer, DO in OV> ? 09/08/24 1654 ? DD/ 1305 ? TD/TT: 08/27/24 1329 ? Prototype Carpenter: ? Procedure Note Mendoza Currie - 09/08/2024 [facility] [address] [place] [address] Mammography Report Signed Patient: Hilda Mcmahan#: [id number] : 1965Acct:[id number] Age/Sex: 59 / FADM Date: 08/27/24 Loc: HO.MAMMO Attending Dr: Oz Sahni MD Ordering Physician: SadlerGinger FNPResults: 1Nega tive Date of Service: 08/27/24Follow Up: 1 Year From Orig inal Mammogram Procedure(s): MM tomosynthesis screening BI Accession Number(s): [id number] cc: [facility] LARD REFINER EXAMINATION: MM SCREENING DIGITAL BREAST TOMOSYNTHESIS, BILATERAL [...] 09/08/24 1654 DD/ 1305 TD/TT: 08/27/24 1329 Prototype Carpenter: [facility] LARD REFINER IMG BI PROCEDURES Final Resul t * Ethanol (08/13/2024 5:21 AM EST) ETHANOL (MG/DL) IN SER/PLAS <10 mg/dL [facility] Comment:Serum/plasma ethanol results are to be used formedical/treatment purposes only. 08/13/2024 5:21 AM EST 08/13/2024 5:26 AM EST us Generic External Data Provider LAB BLOOD ORDERAB LES Final Result [facility] [address] [place] [address] [phone] * (ABNORMAL) Drug Monitoring, Panel 1, Screen, Urine (08/13/2024 5:21 AM EST) Opiate Screen Urine Not Detected Not Detect [facility] Comment:Opiate cut-off is 30 0 ng/mL.Positive results are unconfirmed and should not be used fornon-medical purposes. Barbiturates, Urine Not Detected Not Detect [facility] Comment:Barbiturate cut-off is 200 ng/mL.Positive results are unconfirmed and should not be used fornon-medical purposes. Phencyclidine Screen Urine Not Detected Not Detect [facility] Comment:Phencyclidine cut-of f is 25 ng/mL.Positive results are unconfirmed and should not be used fornon-medical purposes. Amphetamine Screen Urine Not Detected Not Detect [facility] Comment:Amphetamine cut-off is 1000 ng/mL.Positive results are unconfirmed and should not be used fornon-medical purposes. Benzodiazepines Screen Urine Not Detected Not Detect [facility] Comment:Benzodiazepine cut-o ff is 200 ng/mL.Positive results are unconfirmed and should not be used fornon-medical purposes. Cocaine Screen Urine Not Detected Not Detect [facility] Comment:Cocaine cut-off is 3 00 ng/mL.Positive results are unconfirmed and should not be used fornon-medical purposes. Cannabinoid Screen Urine POSITIVE(A) Not Detect [facility] Comment:Cannabinoid cut-off is 50 ng/mL.Positive results are unconfirmed and should not be used fornon-medical purposes. Methadone Screen, Urine Not Detected Not Detect ng/mL [facility] Comment:Methadone cut-off is 300 ng/mL.Positive results are unconfirmed and should not be used fornon-medical purposes. FENTANYL URINE Not Detected Not Detect [facility] Comment:Fentanyl cut-off is 1 ng/mL.Positive results are unconfirmed and should not be used fornon-medical purposes. Oxycodone Urine Screen Not Detected Not Detect ng/mL [facility] Comment:Oxycodone cut-off is 100 ng/mL.Positive results are unconfirmed and should not be used fornon-medical purposes. Buprenorphine Screen Not Detected Not Detect ng/mL [facility] Comment:Buprenorphine cut-of f is 5 ng/mL.Positive results are unconfirmed and should not be used fornon-medical purposes. 08/13/2024 5:21 AM EST 08/13/2024 5:26 AM EST Generic External Data Provider LAB URINE ORDERAB LES Final Result Performing Organization Address City/[facility]/ZIP Co de Phone Number [facility] [address] [place] [phone] * Magnesium (08/13/2024 5:21 AM EST) Magnesium 1.9 1.6 - 2.6 mg/dL [facility] 08/13/2024 5:21 AM EST 08/13/2024 5:26 AM EST Generic External Data Provider LAB BLOOD ORDERAB LES Final Result Performing Organization Address City/[facility]/ZIP Co de Phone Number [facility] [address] [place] [phone] * Hepatic Function Panel (08/13/2024 5:21 AM EST) Bilirubin, Total 0.5 0.0 - 1.0 mg/dL [facility] Bilirubin, Direct 0.2 0.0 - 0.5 mg/dL [facility] Aspartate Amino Transferase 22 5 - 31 U/L [facility] Alanine Aminotransferase 15 0 - 31 U/L [facility] Total Protein 7.4 6.5 - 8.0 g/dL [facility] Albumin Level 3.9 3.5 - 5.0 g/dL [facility] Alkaline Phosphatase 93 39 - 117 U/L [facility] 08/13/2024 5:21 AM EST 08/13/2024 5:26 AM EST us Generic External Data Provider LAB BLOOD ORDERAB LES Final Result Performing Organization Address City/[facility]/ZIP Co de Phone Number [facility] [address] [place] [address] [phone] * (ABNORMAL) Basic Metabolic Panel (08/13/2024 5:21 AM EST) Sodium 148(H) 135 - 145 mmol/L [facility] Potassium 3.8 3.3 - 5.1 mmol/L [facility] Chloride 116(H) 96 - 108 mmol/L [facility] Carbon Dioxide 22 22 - 29 mmol/L [facility] Anion Gap 14 12 - 20 [facility] Urea Nitrogen (BUN) 11 9 - 16 mg/dL [facility] Creatinine, Serum 1.00 0.5 - 1.4 mg/dL [facility] Creatinine Clr Calc Pharmacy 70.0 [facility] Comment:Provided height and weight: 165.1 cm,102.058 kg.eGFR (calculated from the MDRD study equation) and eCrCl(calculated from the Cockcroft-Gault equation) are based ondifferent parameters and may not yield comparable results.If eCrCl result is absurd, please check patient'sheight/weight. Estimated Glomerular Filt Rate 56 [facility] Comment:Chronic Kidney Disea se: Estimated GFR < 60 mL/min/1.69p0Quhifu Kidney Disease: Estimated GFR < 15 mL/min/1.73m2 Glucose 110 60 - 115 mg/dL [facility] Calcium 9.9 8.4 - 10.2 mg/dL [facility] 08/13/2024 5:21 AM EST 08/13/2024 5:26 AM EST us Generic External Data Provider LAB BLOOD ORDERAB LES Final Result [facility] [address] [place] [address] [phone] * (ABNORMAL) POCT HGB A1C (05/13/2024 12:23 PM EDT) [facility] Hemoglobin A1C 6.2(A) 4.0 - 6.0 % QC Media Lot # [id number] Lot# Expiration Date [id number] Blood 05/13/2024 12:2 3 PM EDT [facility] POINT OF CARE TEST ENTER/EDIT ORDERABLES Final Result * Hepatitis C Antibody with Reflex to HCV, RNA, Quantitative, Real-Time PCR (09/25/2022 12:06 PM EST) [facility] Hepatitis C Antibody NON-REACT MARRY NON-REACT MARRY [facility] [place] [email or web address] Index 0.12 <1.00 [facility] [place] [email or web address] Comment: HCV antibody was non-reactive. There is no laboratory evidence of HCV infection. In most cases, no further action is required. However, if recent HCV exposure is suspected, a test for HCV RNA (test code 82496) is suggested. For additional information please refer to http://education.[employer]/faq/TLV28e6 (This link is being provided for informational/ educational purposes only.) Blood Venous blood specimen / Unknown 09/25/2022 12:06 PM EST 09/25/2022 12:06 PM EST Narrative [facility] - 09/27/2022 8:46 AM EST FASTING:YES FASTING: YES [facility] LAB BLOOD ORDERABLES Final Re sult [facility] [address] [facility], [place] [address] [facility] [place] [email or web address] [address] [facility], ([address]) [place] [address] * HPV mRNA E6/E7 (09/09/2019 11:55 AM EST) [facility] HPV mRNA E6/E7 Not Detected NOT DETECTED [facility] Comment: This test was performed using the APTIMA(R) HPV Assay ([employer] This assay detects E6/E7 viral messenger RNA (mRNA) from 14 high-risk HPV types (16,18,31,33,35,39,45,51, 52,56,58,59,66,68). For additional information please refer to: http://education.[employer]/faq/LMT185t2 (This link is being provided for informational/ educational purposes only.) The analytical performance characteristics of this assay have been determined by [facility] [place], [place]. The modifications have not been cleared or approved by the FDA. This assay has been validated pursuant to the CLIA regulations and is used for clinical purposes. Test Performed by [facility], [facility] [place], [address] [place] [address] Saleem Irby M.D., Ph.D., Director of Laboratories , CLIA [id number] Please note: ??Effective 05/14/2016, HPV testing will be performed using [employer]'s APTIMA test which targets mRNA. Detecting mRNA instead of DNA, as in older methods, offers significant improvements in specificity. 09/09/2019 11:5 5 AM EST us Corbin Hughes CNM HISTORICAL/NON ORDERABLE LABS Final Result [facility] [address] from Last 3 Months or Most Recently Relevant to Health Maintenance Insurance Repl[employer] C3 Care Teams Database Management Specialist Relationship Specialty Start Date End Date Ginger Perez FNP [address] [place] [phone] PCP - General Family Medicine 08/13/22
--- OUTSIDE RECORDS SUMMARY | 2024-10-28 16:45 | XMS_ITS | Encounter Summary ---
Author Organization [employer] Address [address] [facility] 7t [place] [address] Care Team Providers Care Art Museum Aide Name Role Phone [facility] Primary Care Provider [phone] Reason for Visit * Reason Comments Med Refill Encounter Details Date Type Department Care Team ([facility] st Contact Info) Description 06/25/2023 Refill [facility] [address] [place], [place] [phone] [facility] 230 [place], [place] [phone] Muscle spasm Social History Tobacco Use Types [...] Description 10/29/2024 1:30 PM EST Clinical Support [address] [address] Frida Knapp RN 11/13/2024 10:30 AM EDT Telemedicine [address] [address] 12/16/2024 11:30 AM EDT Office Visit [address] [address] Ginger Perez FNP [address] [place] [address] documented as of this encounter Visit Diagnoses Diagnosis Muscle spasm Spasm of muscle documented in this encounter Additional Health Concerns Assessment Noted Time PHQ-9 Depression Total Score: 16 023 9:09 AM EDT documented as of this encounter Care Teams Art Museum Aide Relationship Specialty Start Date End Date Ginger Perez FNP [address] [place] [address] PCP - General Family Medicine 08/13/22 documented as of this encounter
--- OUTSIDE RECORDS SUMMARY | 2024-10-28 16:45 | XMS_ITS | Encounter Summary ---
Author Organization [employer] Address 75 [facility] 7t [place] [address] Care Team Providers Care High School Teacher Name Role Phone [facility] Primary Care Provider [phone] Reason for Visit * Reason Comments Med Refill Encounter Details Date Type Department Care Team ([facility] st Contact Info) Description 05/22/2024 Refill [facility] 230 [place], [place] [phone] Roma Man MD 230 [place] [address] Onychomycosis Social History Tobacco Use Types Packs/Day [...] Description 10/29/2024 1:30 PM EST Clinical Support [address] [address] Frida Knapp RN 11/13/2024 10:30 AM EDT Telemedicine [address] [address] 12/16/2024 11:30 AM EDT Office Visit [address] [address] Ginger Perez FNP [address] [place] [address] documented as of this encounter Visit Diagnoses Diagnosis Onychomycosis Dermatophytosis of nail documented in this encounter Additional Health Concerns Assessment Noted Time PHQ-9 Depression Total Score: 13 024 11:27 AM EDT documented as of this encounter Care Teams High School Teacher Relationship Specialty Start Date End Date Ginger Perez FNP [address] [place] [address] PCP - General Family Medicine 08/13/22 documented as of this encounter
--- OUTSIDE RECORDS SUMMARY | 2024-10-28 16:45 | XMS_ITS | Encounter Summary ---
Author Organization [employer] Address [address] [facility] 7t [place] [address] Care Team Providers Care Blade Changer Name Role Phone [facility] Primary Care Provider [phone] Encounter Details Date Type Department Care Team ([facility] st Contact Info) Description 02/21/2023 Telephone [facility] 230 [place], [place] [phone] [facility] 230 [place] [address] Social History Tobacco Use Types Packs/Day Years [...] Miscellaneous Notes * Telephone Encounter - Andriy Osorio RN - 02/25/2023 9:57 AM EDT T/C to [phone] for below message, No answer. LVM to call back on [phone]. As per last message , PCP referred pt. For Physical therapy evaluation. * Telephone Encounter - Mirta Vladimir - 02/21/2023 3:11 PM EDT Tc from [facility] requesting a script for Albuterol for nebulize machine. Unhairing Inspector check on med list but nothing. Also ramya requesting a referral for Occupational Therapy and Physical Therapy in home. To contact ramya at [phone] Perez documented in this encounter Plan of Treatment Upcoming Encounters Date Type Department Care Team (Late st Contact Info) Description 10/29/2024 1:30 PM EST Clinical Support [address] [address] Frida Knapp RN 11/13/2024 10:30 AM EDT Telemedicine [address] [address] 12/16/2024 11:30 AM EDT Office Visit [address] [address] Ginger Perez FNP [address] [place] [address] documented as of this encounter Visit Diagnoses Not on filedocumented in this encounter Additional Health Concerns Assessment Noted Time PHQ-9 Depression Total Score: 9 01/25/20 23 1:11 PM EDT documented as of this encounter Care Teams Blade Changer Relationship Specialty Start Date End Date Ginger Perez FNP [address] [place] [address] PCP - General Family Medicine 08/13/22 documented as of this encounter
--- OUTSIDE RECORDS SUMMARY | 2024-10-28 16:45 | XMS_ITS | Encounter Summary ---
Author Organization [employer] Address [address] [facility] 7t [place] [address] Care Team Providers Care Development Writer Name Role Phone [facility] Primary Care Provider [phone] Reason for Visit * Reason Onset Date Comments Referral 07/19/2023 Encounter Details Date Type Department Care Team ([facility] st Contact Info) Description 07/19/2023 Telephone [facility] 230 [place], [place] [phone] [facility] 230 [place], [place] [phone] Referral Social History Tobacco Use Types Packs/Day [...] 10:29 AM EST Tc from sarah with [facility] states [facility] has not received referral. Also requesting for referral to be sent to a different location due to no availability. Any questions, contact sarah at [phone] documented in this encounter Plan of Treatment Upcoming Encounters Date Type Department Care Team (Late st Contact Info) Description 10/29/2024 1:30 PM EST Clinical Support [facility] [address] [place] [address] Frida Knapp, RN 11/13/2024 10:30 AM EDT Telemedicine [facility] [address] [place] [address] 12/16/2024 11:30 AM EDT Office Visit [facility] [address] [place] [address] Ginger Perez FNP [address] [place] [address] documented as of this encounter Visit Diagnoses Not on filedocumented in this encounter Additional Health Concerns Assessment Noted Time PHQ-9 Depression Total Score: 16 023 9:09 AM EDT documented as of this encounter Care Teams Development Writer Relationship Specialty Start Date End Date Ginger Perez FNP [address] [place] [address] PCP - General Family Medicine 08/13/22 documented as of this encounter
--- OUTSIDE RECORDS SUMMARY | 2024-10-28 16:45 | XMS_ITS | Encounter Summary ---
Author Organization [employer] Address [address] [facility] 7t [place] [address] Care Team Providers Care Hydrochloric Area Supervisor Name Role Phone [facility] Primary Care Provider [phone] Reason for Visit * Reason Comments Med Refill Encounter Details Date Type Department Care Team ([facility] st Contact Info) Description 05/22/[address] [facility] 230 [place], [place] [phone] [facility] 230 [place], [place] [phone] Low back pain at multiple sites Social [...] Description 10/29/2024 1:30 PM EST Clinical Support [address] [address] Frida Knapp, RN 11/13/2024 10:30 AM EDT Telemedicine [address] [address] 12/16/2024 11:30 AM EDT Office Visit [address] [address] Ginger Perez FNP [address] [place] [address] documented as of this encounter Visit Diagnoses Diagnosis Low back pain at multiple sites documented in this encounter Additional Health Concerns Assessment Noted Time PHQ-9 Depression Total Score: 13 024 11:27 AM EDT documented as of this encounter Care Teams Hydrochloric Area Supervisor Relationship Specialty Start Date End Date Ginger Perez FNP [address] [place] [address] PCP - General Family Medicine 08/13/22 documented as of this encounter
--- OUTSIDE RECORDS SUMMARY | 2024-10-28 16:45 | XMS_ITS | Encounter Summary ---
Author Organization [employer] [facility] [facility] [employer] Address [address] [facility] 7t [place] [address] Care Team Providers Care Telephone Service Adviser Name Role Phone [facility] Primary Care Provider [phone] Reason for Visit * Reason Comments Med Refill Encounter Details Date Type Department Care Team ([facility] st Contact Info) Description 05/11/2024 Refill [facility] 230 [place], [place] [phone] Roma Man MD 230 [place] [address] Onychomycosis Social History Tobacco Use Types Packs/Day [...] 10/29/2024 1:30 PM EST Clinical Support [address] [address] Frida Knapp RN 11/13/2024 10:30 AM EDT Telemedicine [address] [address] 12/16/2024 11:30 AM EDT Office Visit [address] [address] Ginger Perez FNP [address] [place] [address] documented as of this encounter Visit Diagnoses Diagnosis Onychomycosis Dermatophytosis of nail documented in this encounter Additional Health Concerns Assessment Noted Time PHQ-9 Depression Total Score: 13 024 11:27 AM EDT documented as of this encounter Care Teams Telephone Service Adviser Relationship Specialty Start Date End Date Ginger Perez FNP [address] [place] [address] PCP - General Family Medicine 08/13/22 documented as of this encounter
--- OUTSIDE RECORDS SUMMARY | 2024-10-28 16:45 | XMS_ITS | Encounter Summary ---
Author Organization [employer] Address [address] [facility] 7t [place] [address] Care Team Providers Care Baton Teacher Name Role Phone [facility] Primary Care Provider Reason for Visit * Reason Onset Date Comments Nurse Triage 10/01/2024 Encounter Details Date Type Department Care Team ([facility] st Contact Info) Description 10/01/2024 Telephone [facility] 230 [place], [place] [phone] [facility] 230 [place], [place] [phone] Nurse Triage Social History Tobacco Use Types [...] encounter Miscellaneous Notes * Telephone Encounter - Ledy Victor - 10/06/2024 4:27 PM EST DME RX for Disposable underpads/bedpads generated and placed on providers desk for signature. * Telephone Encounter - Kimberly Michael RN - 10/05/2024 2:35 PM EST TC placed to patient [phone] in regards to below message. Patient reports she forgot to come to [facility] to be evaluated for potentially infected toe nail. Patient reports she will come today or tomorrow. Patient advised of importance of being evaluated as patient may need abx or referral to specialist. Patient verbalized understanding. * Telephone Encounter - Kimberly Michael RN - 10/05/2024 9:21 AM EST TC placed to [phone] in regards to below message. Patient did not answer, RN left requesting CB to red team nurses. Patient to f/u PRN. * Telephone Encounter - Shriin Dietz RN - 10/01/2024 3:41 PM EST Called pt. Pt. States that her left great toenail is infected on the side. Pt. States ingrown toenail. No fever. Pt. States toe is red and has white pus under toenail. Pt. Is Diabetic. Advised to soak foot in warm water with Epsom salt and also to apply triple antibiotic ointment to area 3 times a day and come into walk in in am to have foot checked due to being diabetic. Pt does not have any of these products. I will send request to PCP. Pt states she will come to walk [facility] due to having another appt. Tomorrow. Advised to keep a close eye on foot and if it gets worse, may have to go to ED. Pt. Is also very upset because her bed pads that were sent thistime for incontinence are too small. Pt. States she was having to put 4 pads down in bed as it was when they were bigger and now she has to put 6 down and the pads are too small. Pt. Requesting largeto X large bed pads to contain her urine at night. Pt states the size that was prescribed in past was ok but now the pads that were ordered this time and sent to her are too small. Will send note to t [facility] nurses to look into this matter. Protocol Used: Toenail - Ingrown (Adult) Protocol-Based Disposition: See in Office or Video Visit Today or Tomorrow Video visit offer not recorded Positive Triage Questions: * Yellow pus seen in skin around toenail (cuticle area), or pus seen under toenail * Moderate pain (e.g., limping, interferes with normal activities) and present > 3 days * Diabetes mellitus or peripheral vascular disease ( poor circulation ) * All higher-acuity triage questions were negative Care Advice Discussed: * Clean the Area * Telephone Encounter - Arnaldo Valente - 10/01/2024 2:38 PM EST Symptoms: Bruises - Not From Injury, Foot or Ankle Pain - Not From Injury Outcome: Schedule an urgent appointment (within 1 hour) or talk to a nurse or provider soon Reason: Trouble walking Please contact pt at [phone]. documented in this encounter Plan of Treatment Upcoming Encounters Date Type Department Care Team (Late st Contact Info) Description 10/29/2024 1:30 PM EST Clinical Support [address] [address] Frida Knapp, OZZY 11/13/2024 10:30 AM EDT Telemedicine [address] [address] 12/16/2024 11:30 AM EDT Office Visit [address] [address] Ginger Perez FNP [address] [place] [address] documented as of this encounter Visit Diagnoses Not on filedocumented in this encounter Additional Health Concerns Assessment Noted Time PHQ-9 Depression Total Score: 13 024 11:27 AM EDT documented as of this encounter Care Teams Baton Teacher Relationship Specialty Start Date End Date Ginger Perez FNP [address] [place] [address] PCP - General Family Medicine 08/13/22 documented as of this encounter
--- OUTSIDE RECORDS SUMMARY | 2024-10-28 16:45 | XMS_ITS | Encounter Summary ---
Demographics Address [address] [facility] [address] [place] [address] Mobile Phone Work Phone Home Phone Preferred Language en Marital Status Single Uatsdin Affiliation Unknown Race Other Race Ethnic Group or Author Organization [employer] Address [address] [facility] 7t [place] [address] Care Team Providers Care Risk Investigator Name Role Phone Ginger Perez Primary Care Provider [phone] Reason for Referral * Consultation (Routine) - Authorized Specialty Diagnoses / Procedures Referred By Melita bingham Referred To Contact Endocrinology Diagnoses Subclinical hyperthyroidism Ginger Perez FNP [address] [place] [address] Phone: tel: fax: [facility] Endocrinology [address] [place], [place] Phone: tel: fax: Referral ID Status Reason Start Date Expiration Date Visits Requested Visits Authorized [id number] Authorized Specialty Services Required 10/05/2024 10/05/2025 6 6 Encounter Details Date Type Department Care Team (Late st Contact Info) Description 10/05/2024 Orders Only [facility] [address] [place], [place] [phone] Ginger Perez FNP [address] [place], [place] [phone] Subclinical hyperthyroidism (Primary Dx) Social History Tobacco Use Types [...] Frequency of Binge Drinking Not on file 0209/2023 Score 0 10/03/2023 Depression Answer Date Recorded [...] 1:30 PM EST Clinical Support [facility] [address] [place] [address] Frida Knapp, OZZY 11/13/2024 10:30 AM EDT Telemedicine [facility] [address] [place] [address] 12/16/2024 11:30 AM EDT Office Visit [address] [address] Ginger Perez FNP [address] [place] [address] Scheduled Referrals Name Type Priority Associated Diagnoses Orde r Schedule Referral to Endocrinology Outpatient Referral Routine Subclinical hyperthyroidism Expected: 10/05/2024 (Approximate), Expires: 10/05/2025 documented as of this encounter Visit Diagnoses Diagnosis Subclinical hyperthyroidism- Primary Thyrotoxicosis without mention of goiter or other cause, without mention of thyrotoxic crisis or storm documented in this encounter Additional Health Concerns Assessment Noted Time PHQ-9 Depression Total Score: 13 024 11:27 AM EDT documented as of this encounter Care Teams Risk Investigator Relationship Specialty Start Date End Date Ginger Perez FNP [address] [place] [address] PCP - General Family Medicine 08/13/22 documented as of this encounter
--- OUTSIDE RECORDS SUMMARY | 2024-10-28 16:45 | XMS_ITS | Encounter Summary ---
Author Organization [employer] Address [address] [facility] 7[address] [place] [address] Care Team Providers Care Fibrous Plasterer Name Role Phone [facility] Primary Care Provider [phone] Reason for Visit * Reason Onset Date Comments Durable Medical Equipment 10/01/2024 DME: D isposable Underpad Encounter Details Date Type Department Care Team (Late st Contact Info) Description 10/01/2024 Telephone [facility] MED[facility] [address] [place] [address] [facility] [address] [place] [address] Durable Medical Equipment (DME: Disposable Underpad) Social History Tobacco Use Types Packs/Day Years [...] the past 12 months, has t he [employer], gas, oil or water [employer] threatened to shut off services in your [...] * Telephone Encounter - Ledy Victor - 10/08/2024 3:48 PM EST DME for Disposable underpads/bedpads signed and faxed to Alyse . Confirmation received and sent to scan. If patient calls to check status on above, please advise them to contact Alyse at [phone]. * Telephone Encounter - Ledy Victor - 10/06/2024 4:27 PM EST DME RX for Disposable underpads/bedpads generated and placed on providers desk for signature. * Telephone Encounter - Arnaldo Victor - 10/01/2024 2:36 PM EST Tc from pt calling in regards to bed pads stating the ones that she received recently are too smallcausing her to use too many at once. Pt further stated that she was informed by [facility] that her pcp changed the script for bed pads to a smaller size. Pt is requesting call back to clarify. Please contact pt at [phone]. documented in this encounter Plan of Treatment Upcoming Encounters Date Type Department Care Team (Late st Contact Info) Description 10/29/2024 1:30 PM EST Clinical Support [address] [address] Frida Knapp RN 11/13/2024 10:30 AM EDT Telemedicine [address] [address] 12/16/2024 11:30 AM EDT Office Visit [address] [address] Ginger Perez FNP [address] [place] [address] documented as of this encounter Visit Diagnoses Not on filedocumented in this encounter Additional Health Concerns Assessment Noted Time PHQ-9 Depression Total Score: 13 024 11:27 AM EDT documented as of this encounter Care Teams Fibrous Plasterer Relationship Specialty Start Date End Date Ginger Perez FNP [address] [place] [address] PCP - General Family Medicine 08/13/22 documented as of this encounter
--- OUTSIDE RECORDS SUMMARY | 2024-10-28 16:45 | XMS_ITS | Encounter Summary ---
Author Organization [employer] Address [address] [facility] 7t [place] [address] Care Team Providers Care Registered Dental Assistant Name Role Phone [facility] Primary Care Provider Encounter Details Date Type Department Care Team ([facility] st Contact Info) Description 10/01/2024 Orders Only [facility] MED[facility]INE [address] [place], [place] [phone] [facility] 230 [place], [place] [phone] Social History Tobacco Use Types Packs/Day Years [...] Description 10/29/2024 1:30 PM EST Clinical Support [address] [address] Frida Knapp RN 11/13/2024 10:30 AM EDT Telemedicine [address] [address] 12/16/2024 11:30 AM EDT Office Visit [address] [address] [place] Ginger, [address] [address] documented as of this encounter Procedures Procedure Name Priority Date/Time Associated Diagnosis Comments T4, FREE Routine 10/01/2024 9:58 AM EST documented in this encounter Results * T4, Free (10/01/2024 9:58 AM EST) Free T4 (Free Thyroxine) 0.91 0.71 - 1.85 ng/dL [facility] 10/01/2024 9:58 AM EST 10/01/2024 11:04 AM EST Ginger [facility] LAB BLOOD ORDERABLES Final Re sult [facility] [address] [place] [address] [phone] documented in this encounter Visit Diagnoses Not on filedocumented in this encounter Additional Health Concerns Assessment Noted Time PHQ-9 Depression Total Score: 13 024 11:27 AM EDT documented as of this encounter Care Teams Registered Dental Assistant Relationship Specialty Start Date End Date Ginger Perez FNP [address] [place] [address] PCP - General Family Medicine 08/13/22 documented as of this encounter
== END 2024-10-28 14:21 | disposition home or self-care (01) ==
PROVIDERS: PCP Registered Nurse; Visit Provider Student in an Organized Health Care Education/Training Program
DX: E05.90 Thyrotoxicosis, unspecified without thyrotoxic crisis or storm (principal)
CPT/HCPCS: 99204

== ENCOUNTER → 2024-10-28 13:37 | Outpatient (BNVA) | payer MEDICAID, SELFPAY | PROVIDERS: PCP Registered Nurse; Visit Provider Student in an Organized Health Care Education/Training Program | DX: E05.90 Thyrotoxicosis, unspecified without thyrotoxic crisis or storm (principal) | CPT/HCPCS: 99202 ==

== ENCOUNTER 2024-10-29 18:13 | Outpatient (REF) | payer MEDICAID, SELFPAY ==
[2024-11-05 13:02] LABS: Alphahydroxymidazolam,GCMS Ur NEGATIVE; Alphahydroxytriazolam, GCMS Ur NEGATIVE; Alprazolam, GCMS Urine NEGATIVE; Aminoclonazepam, GCMS Urine 829; Flurazepam Metabolite,GCMS Ur NEGATIVE; Lorazepam GCMS Urine NEGATIVE; Nordiazepam, GCMS Urine NEGATIVE; Oxazepam, GCMS Urine NEGATIVE; Temazepam, GCMS Urine NEGATIVE
== END 2024-10-29 18:14 | disposition home or self-care (01) ==
LOC: HO.HHCLNP 18:13
PROVIDERS: Visit Provider Registered Nurse
DX: F41.8 Other specified anxiety disorders (principal)
CPT/HCPCS: 80346

== ENCOUNTER 2024-11-05 13:31 | Outpatient (AMB) | payer MEDICAID, SELFPAY ==
--- NOTE | 2024-11-05 10:16 | MHC.OFFVIS ---
Vital Signs 11/05/24 13:39 Height 5 ft 2 in Weight 196 lb 3.382 oz BMI 35.9 BP 112/68 Blood Pressure Location Rt brachial Position Sitting Pulse 88 Pulse Source Pulse Oximeter Pulse Oximetry (%) 97 Oxygen Delivery Method Room Air Intake Visit Reasons: T2DM Intake Note: Patient presents today for a follow-up on Type 2 Diabetes Mellitus: Last Diabetic eye exam was on: 05/06/2024 Last Podiatry exam was on: Does not see a Appraiser Real Estate Most recent HbA1c: 5.7%, 11/05/2024 Random Glucose- 77 mg/dL, 2:17 PM, Henny provided glucose tabs, Random Glucose- 87 mg/dL, 2:25 PM Maxillofacial Prosthetics Dentist Required: No Accompanied by: Self / Same As Patient Allergies mushroom Allergy (Verified 11/05/24 13:41) Anaphylaxis HPI Comments Details: 59 YO type 2 diabetes who is seen for follow up. [place] was last seen 05/16/24. A1c on 11/05/2024 5.7% , 6.3%. Diabetes medications were recently reduced by PCP due to symptomatic hypoglycemia. Reports decreased appetite but still eating 3 small meals. Weight 12/2023 263 lb 05/06/24 222 lb today's weight 196 Glucose 77 in the clinic today and was given 15 carbohydrate g, repeat glucose see above Was initially started on treatment with [metformin]. Current regimen: Tresiba 24 units stopped Mounjaro 7.5 mg weekly Jardiance 10 mg Metformin 1000 mg b.i.d. Dexcom average glucose: 121 14 day continuous glucose monitor report reviewed Glucose Managment indicator 6.2 % Days with CGM data [ ] % TIme in ranges: [ ] % very high (above 250) [ ] % high ?(181-250) 93 % in range ?(70-180] 0 % low (69-55) Less than 1 % ?very low (below 54) 26 Standard Deviation Interpretation [glucose readings running on average 30 points less than desired Treats lows with juice, fast carbs Has eyes checked yearly, last eye exam 05/2024 neuropathy: Some numbness no cramping last foot exam today, sees podiatry every 2 months nephropathy: eGFR 56 measured on 08/25. ARB microalbumin < 5.0 as measured on 12/2022. HLD, on statin. Last LDL 83 as measured on 09/14/2024. Denies CAD,PVD, CVA Denies chest pain, dyspnea or symptoms of claudication She reports she had an appointment to see the certified genetic counselor but had to cancel this. This has been rescheduled [facility] screen Fibrosis-4 (Fib-4) Index for liver fibrosis (calculated on lab work done: 01/23) [0.84 ] points Advanced fibrosis [excluded ] Approximate Fibrosis stage Nathaly [0-1] *Use with caution in patients <35 or >65 years old, as the score has been shown to be less reliable in these patients. Prior Imaging: Intervention: weight reduction and GLp-1 agonist Date of Service: 03/14/23 US/US abdomen comp w elastography IMPRESSION: 1. There is generalized increase in hepatic echotexture, consistent with fatty infiltration or hepatocellular disease. Please correlate clinically. Characteristic pericholecystic sparing favors fatty infiltration. No focal hepatic mass or intrahepatic biliary dilatation is seen. 2. There is hepatomegaly. 3. Liver elastography: Measurements are suggestive of compensated advanced chronic liver disease but need further test for confirmation. LIVER STIFFNESS THRESHOLDS: *Liver Stiffness equal or less than 1.3 m/s: High probability of being normal. *Liver Stiffness less than 1.7 m/s: In the absence of other known clinical signs, rules out compensated advanced chronic liver disease. *Liver Stiffness 1.7-2.1 m/s: Suggestive of compensated advanced chronic liver disease but need further test for confirmation. *Liver Stiffness over 2.1 m/s: Rules in compensated advanced chronic liver disease. *Liver Stiffness over 2.4 m/s: Suggestive of clinically significant portal hypertension. Diet: [1 egg for breakfast, often skips lunch, supper rice and beans] Weight: [down forty pounds since the beginning of the year] [Had] diabetes education 1 year ago [facility] Medical History (Updated 11/05/24 @ 14:27 by Cheryl An NP) Fatty liver Subclinical hyperthyroidism Seizures Vitamin D deficiency Chronic pain syndrome Spondylosis 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 myelopathy Disc degeneration, lumbar Hip osteoarthritis Sacroiliitis Illiterate Morbid obesity due to excess calories Diabetes mellitus type 2, controlled, without complications Essential hypertension Hyperlipidemia LDL goal <100 Panic attacks VELASQUEZ on CPAP History of tremor Gender dysphoria Anxiety Depression Asthma Epilepsy Hypertension Surgical History History of esophagogastroduodenoscopy (EGD) Hx of laparoscopic gastric banding Family History Father CVD (cardiovascular disease) Mother Hypertension Social History Household Members: Children and None Household Members Other:: 2 dogs Are you a primary critical care technician to a significant other at home: No Do you presently have visiting nurse or other home services: Yes Alcohol intake: former Patient Tobacco Use Status: Former Tobacco user Substance Use Type: Marijuana Physical Exam Vital Signs: Last Vital Signs Pulse 88 11/05/24 13:39 BP 112/68 11/05/24 13:39 Pulse Ox 97 11/05/24 13:39 Oxygen Delivery Method Room Air 11/05/24 13:39 BMI result Body Mass Index 35.9 Const Other: Absence of Cushingoid features. Absence of acromegalic features. Heart S1 S2, Reg R/R. No M/R G. Skin exam reveals absence of vitiligo or acanthosis nigricans. Office Procedures Glucose Monitoring Details Details: see [facility] [id number] - Glucose monitoring, continuous-physician I&R Procedure code (CPT) selection complete Results AMB Hemoglobin A1c AMB Hemoglobin A1c 5.7 % Last Edit by RIVAS Galo on 11/05/24 14:17 Results Reviewed Results Reviewed: Laboratory Last Values Glucose (Clinic) 77 mg/dL (60-115) 11/05/24 13:54 Hgb A1c (Clinic) 5.7 % (4.0-6.0) 11/05/24 14:17 Assessment & Plan Assessment & Plan (1) Diabetes mellitus type 2, controlled, without complications: Comment: IDDM Code(s): E11.9 - Type 2 diabetes mellitus without complications Category: Medical Qualifiers: Diabetes mellitus ocean transportation intermediary insulin use: with ocean transportation intermediary use Qualified Code(s): E11.9 - Type 2 diabetes mellitus without complications; Z79.4 - equipment operator intermodal yard (current) use of insulin Plan: 59-year-old type 2 diabetic with nephropathy and mild neuropathy presents today with an A1C 11/05/24:. Diabetes medications were recently adjusted downward due to symptomatic hypoglycemia. Patient's baseline weight 12/21/2023 was 263. Current weight is 196 Will tiger text PCP re weight loss Continue elvie 7.5mg insulin is stopped stop jardiance stop metformin I will see patient back in 1 week to make sure her numbers do not rebound upward I have asked the patient to see the sorting and folding supervisor to make sure she is meeting her nutritional requirements. The patient had an opportunity to ask questions regarding treatment plan. The patient expressed understanding and agreement with the above treatment plan. The patient is aware they should contact our office by phone for worsening glucose readings or for any low blood sugars which may warrant a change in diabetes medication. Compliance is encouraged with medications and any followup testing/consults which may have been ordered. (2) Fatty liver: Code(s): K76.0 - Fatty (change of) liver, not elsewhere classified Category: Medical Plan: The patient has an appointment with GI medicine for this. Continue Mounjaro (3) Subclinical hyperthyroidism: Code(s): E05.90 - Thyrotoxicosis, unspecified without thyrotoxic crisis or storm Category: Medical Plan: Patient has lab slip for repeat TSH, free T4 and TSI through Dr. Hall. Orders: Orders AMB Hemoglobin A1c Today E11.9 - Type 2 diabetes mellitus without complications, N20.0 - Calculus of kidney, Z79.4 - halfway (current) use of insulin AMB Glucose Monitoring Today E11.9 - Type 2 diabetes mellitus without complications, Z79.4 - equipment operator intermodal yard (current) use of insulin Referrals Medical Nutrition Therapy Referral E11.9 - Type 2 diabetes mellitus without complications, Z79.4 - halfway (current) use of insulin Medications: Discontinued empagliflozin (Jardiance) Discontinued Reason: Doctor's Order 10 mg PO DAILY 30 tabs 4RF Patient Instructions: The patient was counseled to always carry a source of sugar . Coding Level of Care Code Est Pt Level 4 (47565) Complex EM visit Add On G2211 Diagnoses Controlled type 2 diabetes mellitus without complication, with long-term current use of insulin E11.9; Z79.4 Diabetes mellitus group home insulin use: with ocean transportation intermediary use Fatty liver K76.0 Subclinical hyperthyroidism E05.90 CPT Codes Details - CPT: 28519 - Glucose monitoring, continuous-physician I&R ([id number])
[2024-11-05 13:39] VITALS: BP 112/68; PULSE 88; O2SAT 97; BMI 35.9
[2024-11-05 14:01] LABS: Glucose, Whole Blood 77 mg/dL (60-115)
[2024-11-05 14:30] LABS: Glucose, Whole Blood 87 mg/dL (60-115)
--- OUTSIDE RECORDS SUMMARY | 2024-11-05 16:27 | XMS_ITS | Encounter Summary ---
Author Organization [employer] Address [address] [facility] 7t [place] [address] Care Team Providers Care Reclamation Worker Name Role Phone [facility] Primary Care Provider [phone] Encounter Details Date Type Department Care Team ([facility] st Contact Info) Description 12/20/2022 Telephone [facility] [address] [place], [place] [phone] [facility] 230 [place], [place] [phone] Social History Tobacco Use Types Packs/Day Years [...] - 12/20/2022 4:16 PM EDT [facility] requesting status on orders that needed to be sign by PCP on oct [phone] documented in this encounter Plan of Treatment Upcoming Encounters Date Type Department Care Team (Late st Contact Info) Description 11/13/2024 10:30 AM EDT Telemedicine [address] [address] 12/16/2024 11:30 AM EDT Office Visit [address] [address] Ginger Perez FN[address] [address] 01/19/2025 1:30 PM EDT Clinical Support [address] [address] Frida Knapp RN documented as of this encounter Visit Diagnoses Not on filedocumented in this encounter Additional Health Concerns Assessment Noted Time PHQ-9 Depression Total Score: 0 12/12/19 23 3:58 PM EDT documented as of this encounter Care Teams Reclamation Worker Relationship Specialty Start Date End Date Ginger Perez FNP [address] [place] [address] PCP - General Family Medicine 08/13/22 documented as of this encounter
--- OUTSIDE RECORDS SUMMARY | 2024-11-05 16:27 | XMS_ITS | Encounter Summary ---
Author Organization [employer] Address [address] [facility] 7[address] [place] [address] Care Team Providers Care Supervisor Brake Repair Name Role Phone [facility] Primary Care Provider [phone] Reason for Visit * Reason Onset Date Comments Durable Medical Equipment 12/18/2022 Encounter Details Date Type Department Care Team ([facility] st Contact Info) Description 12/18/2022 Telephone [facility] 230 [place], [place] [phone] [facility] 230 [place] [address] Durable Medical Equipment Social History Tobacco Use [...] the largest size for disposable bed pads. Executive Consultant suggested a script for reusable bed pads as they are larger. A new script for reusable bed pads generated for signature. left with information for patient. * Telephone Encounter - Brenda Prachi - 12/18/2022 2:13 PM EDT Tc from [facility] requesting bigger bed pads . States pt is having hard time with the ones she haves . documented in this encounter Plan of Treatment Upcoming Encounters Date Type Department Care Team (Late st Contact Info) Description 11/13/2024 10:30 AM EDT Telemedicine [address] [address] 12/16/2024 11:30 AM EDT Office Visit [address] [address] Ginger Perez FN[address] [address] 01/19/2025 1:30 PM EDT Clinical Support [address] [address] Frida Knapp, RN documented as of this encounter Visit Diagnoses Not on filedocumented in this encounter Additional Health Concerns Assessment Noted Time PHQ-9 Depression Total Score: 0 12/12/19 23 3:58 PM EDT documented as of this encounter Care Teams Supervisor Brake Repair Relationship Specialty Start Date End Date Ginger Perez FNP [address] [place] [address] PCP - General Family Medicine 08/13/22 documented as of this encounter
--- OUTSIDE RECORDS SUMMARY | 2024-11-05 16:27 | XMS_ITS | Encounter Summary ---
Author Organization [employer] Address [address] [facility] 7t [place] [address] Care Team Providers Care Transfer Station Operator Name Role Phone [facility] Primary Care Provider [phone] Reason for Visit * Reason Onset Date Comments Durable Medical Equipment 12/18/2022 Encounter Details Date Type Department Care Team ([facility] st Contact Info) Description 12/18/2022 Telephone [facility] MEDICINE 230 [place], [place] [phone] [employer] 230 [place] [address] Durable Medical Equipment Social History Tobacco Use [...] EDT Tc from sarah from [facility] requesting a new nebulizer machine . States pt informed old one stopped working . documented in this encounter Plan of Treatment Upcoming Encounters Date Type Department Care Team (Late st Contact Info) Description 11/13/2024 10:30 AM EDT Telemedicine [address] [address] 12/16/2024 11:30 AM EDT Office Visit [address] [address] Ginger Perez FNP [address] [place] [address] 01/19/2025 1:30 PM EDT Clinical Support [address] [address] Frida Knapp, OZZY documented as of this encounter Visit Diagnoses Not on filedocumented in this encounter Additional Health Concerns Assessment Noted Time PHQ-9 Depression Total Score: 0 12/12/19 23 3:58 PM EDT documented as of this encounter Care Teams Transfer Station Operator Relationship Specialty Start Date End Date Ginger Perez FNP [address] [place] [address] PCP - General Family Medicine 08/13/22 documented as of this encounter
--- OUTSIDE RECORDS SUMMARY | 2024-11-05 16:28 | XMS_ITS | Encounter Summary ---
Author Organization [employer] Address [address] [facility] 7t [place] [address] Care Team Providers Care Digital Analyst Name Role Phone [facility] Primary Care Provider Reason for Visit * Reason Onset Date Comments Clonazepam count 10/30/2024 Encounter Details Date Type Department Care Team ([facility] st Contact Info) Description 10/30/2024 Telephone [facility] 230 [place], [place] [phone] Frida Knapp, OZZY Clonazepam count Social History Tobacco Use Types Packs/Day Years [...] Telephone Encounter - Frida Knapp RN - 10/30/2024 9:32 AM EST TC to patient, patient stated she fell asleep before the nurse came back last night and she never asked her about her Clonazepam count. Pt states she will ask the daytime nurse today about and call this adjusto writer operator back with the information. documented in this encounter Plan of Treatment Upcoming Encounters Date Type Department Care Team (Late st Contact Info) Description 11/13/2024 10:30 AM EDT Telemedicine [facility] [address] [place] [address] 12/16/2024 11:30 AM EDT Office Visit [facility] [address] [place] [address] [facility], [address] [address] 01/19/2025 1:30 PM EDT Clinical Support [facility] [address] [place] [address] Frida Knapp RN documented as of this encounter Visit Diagnoses Not on filedocumented in this encounter Additional Health Concerns Assessment Noted Time PHQ-9 Depression Total Score: 13 024 11:27 AM EDT documented as of this encounter Care Teams Digital Analyst Relationship Specialty Start Date End Date OnaGinger canales FNP [address] [place] [address] PCP - General Family Medicine 08/13/22 documented as of this encounter
--- OUTSIDE RECORDS SUMMARY | 2024-11-05 16:28 | XMS_ITS | Clinical Summary ---
Demographics Address [address] [place] [address] Mobile Phone Work Phone Home Phone Preferred Language en Marital Status Single Methodist Affiliation Unknown Race Other Race Ethnic Group or Author Organization [employer] Address [address] [place] [address] Care Team Providers Care Director Index Name Role Phone [facility] Primary Care Provider [phone] Allergies Active Allergy Reactions Criticality Noted Date [...] hyperglycemia, with long-term current use of insulin ([facility]) Use as directed 100 each 11 023 Active Reguloid 57.6 % powderIndicatio ns:Constipation , unspecified constipation type MIX 1 TEASPOONFUL IN 8 OUNCES OF WATER OR JUICE AND DRINK EVERY MORNING 284 g 023 Active Blood Glucose Monitoring Suppl (GNP Easy Touch Glucose Meter) deviceIndicatio ns:Type 2 diabetes mellitus with hyperglycemia, with long-term current use of insulin ([facility]) Use as directed to check blood sugar four times daily 1 each 023 Active glucose blood test stripIndication s:Type 2 diabetes mellitus with hyperglycemia, with long-term current use of insulin ([facility]) Use as directed to check blood sugar [...] hyperglycemia, with long-term current use of insulin ([facility]) USE TO TEST BLOOD SUGAR FOUR TIMES DAILY 100 each 11 023 Active albuterol (2.5 MG/3ML) 0.083% nebulizer solutionIndicat ions:Moderate persistent asthma without complication INHALE 1 AMPULE USING A NEBULIZER EVERY 6 HOURS NEEDED FOR WHEEZING 90 mL 11 024 Active Blood Pressure kitIndications: Type 2 diabetes mellitus with hyperglycemia, with long-term current use of insulin ([facility]) Use as directed 1 kit 024 Active [...] hyperglycemia, with long-term current use of insulin ([facility]) USE DIRECTED FIVE TIMES DAILY 100 each [...] per week. 2 mL 3 025 Active naloxone (Narcan) 4 mg/0.1 mL nasal sprayIndication s:Low back pain at multiple sites Administer 1 spray (4 mg) into affected nostril(s) if needed for opioid reversal. May repeat every 2-3 minutes if needed, alternating nostrils, until medical assistance becomes available. 2 each 3 025 2025 Active clonazePAM (KlonoPIN) 1 MG tabletIndicatio ns:Mixed [...] ultrasound with liver elastography ordered [facility] which patient is no longer attending. Reports with hepatic steatosis with evidence of advanced chronic liver disease ? 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 EEG's normal. Per neurology notes, possible dyskenisa s/t hx of antipsychotic medications which patient is no longer taking. Not currently taking any anti- seizure medications. No seizure episodes >2 months. Episodes triggered by emotional stress. Bariatric surgery status 09/29/2022 Overview (09/29/2022): ? ? Lap band was removed approx 8 years ago in [facility]; repeat lap band through [facility] without weight loss. Very upset by experience at [facility]. Currently working with [facility] [place] [facility]gn[facility] for removal of lap band. Assessment & Plan (05/03/2023 10:30 AM EDT): ?? Details of current weight mngmt plan through [facility] unclear. Will request notes and follow up as indicated Obstructive sleep apnea 09/29/2022 Overview (06/04/2023): ?? Compliant with BiPAP ?? Followed by [facility] neurology and sleep clinic. Dr. Temple Gender dysphoria in adult 09/29/2022 Overview (09/29/2022): ?? Interested in pursuing top and bottom gender reassignment surgery ?? Not a candidate for hormone therapy Healthcare maintenance 09/29/2022 Overview (02/25/2024): Mammo: 07/2022--Birads 2 Pap: HPV negative 2019, no cytology on record. C-scope: Upcoming colonoscopy [facility] GI BMD: Routine age [...] medication management. Any issues or concerns, contact [facility]. All his questions were answered and I [...] be left alone, encouraged to request increased RESEARCH QUALITY ASSURANCE ANALYST hours. Will increase bedtime Gabapentin to 1200 [...] of family members and/or 1 of 2 RESEARCH QUALITY ASSURANCE ANALYST's always present. Patient was able to contract [...] prescriber. We did not discuss my planned senior care today. F/U with me in 1 month. [...] morning Jardiance 25 mg daily Followed by [facility] Real Estate Development Manager Has dexcom CGM Metformin stopped due to [...] ?? Continue to follow as scheduled with [facility] DM educator ?? Will task RN's to contact patients rn transitional care to ensure that [facility] is aware of med change. ?? Strongly encouraged patient to continue with RESEARCH QUALITY ASSURANCE ANALYST/VNA services due to multiple chronic conditions and patient's difficulty self managing care. Patient verbalizes understanding and agrees to plan Assessment & Plan (05/03/2023 10:15 AM EDT): ?? Continue to work with [facility] DM educator Henny-will request [...] Encounters Date Type Department Care Team Description 11/05/2024 Orders Only GENERIC EXTERNAL DATA DEPARTMENT Provider, Generic External Data 11/02/[address] [address] Frida Knapp, RN Error (VOID this visit) 10/30/[address] [address] Frida Knapp, RN Clonazepam count 10/29/2024 1:30 PM EST Clinical Support [address] [address] Frida Knapp, RN Mixed anxiety and depressive disorder (Primary Dx) 10/29/[address] [address] Frida Knapp, RN Low back pain at multiple sites (Primary Dx) 10/29/2024 Travel 10/29/[address] [address] Frida Knapp, RN Recommend WARP HANGER Tier 2 10/23/[address] [address] Ginger Perez FNP 10/20/[address] [address] Frida Knapp, RN [facility] Homecare 10/16/2024 Orders Only [facility] [address] [place] [address] Ginger Perez FNP Type 2 diabetes mellitus with chronic kidney disease, with long-term current use of insulin, unspecified CKD stage ([facility]) (Primary Dx) 10/15/[address] [place] [address] Frida Knapp, RN Mixed anxiety and depressive disorder 10/15/[address] [address] Ginger Perez FNP Medication Question 10/09/[address] [address] Ginger Perez FNP Call Back Request 10/06/[address] [address] Ginger Perez FNP Results 10/05/[address] [address] Kimberly Michael, OZZY Results 10/05/2024 Orders Only [facility] [address] [place] [address] Ginger Perez FNP Subclinical hyperthyroidism (Primary Dx) 10/01/[address] [address] Ginger Perez FNP Nurse Triage 10/01/[address] [address] Ginger Perez FNP Durable Medical Equipment (DME: Disposable Underpad) 10/01/2024 Orders Only [address] [address] Ginger Perez FNP 09/29/[address] [address] Marisabel Kaye, RN Results 09/28/2024 Orders Only [facility] [address] [place] [address], [place] [address] [facility] Abnormal TSH (Primary Dx) 09/15/2024 Refill [facility] [address] [place] [address] [facility] 09/15/[address] [address] Angelic Keys, RN Care Coordination 09/14/2024 11:30 AM EST Office Visit [address] [address] [facility] Type 2 diabetes mellitus with hypoglycemia without coma, with long-term current use of insulin ([facility]) (Primary Dx); Tremor of hands and face; Decreased hearing of left ear 09/14/2024 Orders Only [facility] [address] [place] [address] [facility] 09/14/2024 Travel 09/08/2024 10:15 AM EST Office Visit [address] [address] Corbin Hughes CNM Postmenopausal bleeding (Primary Dx); Epidermal cyst of vulva 09/08/2024 Travel 08/18/[address] [address] [facility] Nurse Triage 08/13/2024 Orders Only GENERIC EXTERNAL DATA DEPARTMENT Provider, Generic External Data from Last 3 Months Immunizations Name Administration [...] Info) Description 11/13/2024 10:30 AM EDT Telemedicine [address] [address] 12/16/2024 11:30 AM EDT Office Visit [address] [address] [facility], [address] [address] 01/19/2025 1:30 PM EDT Clinical Support [address] [address] Frida Knapp, RN Health Maintenance Due Date Last Done Comments [...] 2024 , 06/21/2022, 07/06/2019, Additional history exists Depression Monitoring (PHQ-9) 09/16/2024 03/16/2024, 03/16/2024 SDOH Screening 10/03/2024 10/03/2023 Diabetes: Hemoglobin A1C 11/10/2024 024, 02/17/2024, 11/13/2023, Additional history exists Depression Screening 03/16/2025 03/16/2024, 03/16/20 Mammogram 08/27/2025 08/27/2024, 07/03, 2022, Additional history [...] Procedure Name Priority Date/Time Associated Diagnosis Comments GLUCOSE, WHOLE BLOOD Routine 11/05/2024 2:23 PM EST GLUCOSE, WHOLE BLOOD Routine 11/05/2024 1:54 PM EST POCT BLANKA-14 URINE DRUG SCREEN Routine 10/29/2024 2:03 PM EST Mixed anxiety and depressive disorder DRUG MONITORING, BENZODIAZEPINES, QUANTITATIVE, URINE Routine 10/29/2024 1:45 PM EST Mixed anxiety and depressive disorder AMB REFERRAL TO AUDIOLOGY Routine 10/05/2024 Decreased [...] current use of insulin, unspecified CKD stage ([facility]) MR BRAIN WO CONTRAST Routine 09/24/2024 3:41 PM EST Tremor of hands and face T4, FREE Routine 09/14/2024 1:25 PM EST LIPID PANEL, STANDARD Routine 09/14/2024 1:25 PM EST Type 2 diabetes mellitus with hypoglycemia without coma, with long-term current use of insulin ([facility]) SYPHILIS SCREEN Routine 09/14/2024 1:25 PM EST [...] Recently Relevant to Health Maintenance Results * Glucose, Whole Blood (11/05/2024 2:23 PM EST) Only the most recent of2 resultswithin the time period is included. Glucose, Whole Blood 87 60 - 115 mg/dL [facility] Comment:METER #: [id number] 5Testing performed in the Endocrinology Department [address] , [address], [facility]. 11/05/2024 2:23 PM EST 11/05/2024 2:30 PM EST Generic External Data Provider LAB BLOOD ORDERAB LES Final Result [facility] [address] [place] [address] [phone] * (ABNORMAL) POCT BLANKA-14 Urine Drug Screen (10/29/2024 2:03 PM EST) Pathologist [facility] THC Positive Benzodiazepines Screen, Urine Negative Urine Urine specimen obtained by clean catch procedure / Unknown 10/29/2024 2:03 PM EST Frida Burleson RN - 10/29/2024 2:03 PM EST UTOX cup Lot#[id number] Exp. 04/21/26 Internal Pass Control [facility] POINT OF CARE TEST ENTER/EDIT ORDERABLES Final Result * Drug Monitoring, Benzodiazepines, Quantitative, Urine (10/29/2024 1:45 PM EST) Pathologist [facility] Nordiazepam, GCMS Urine NEGATIVE [facility] Oxazepam, GCMS Urine NEGATIVE [facility] Lorazepam GCMS Urine NEGATIVE [facility] Alprazolam, GCMS Urine NEGATIVE [facility] Alphahydroxytriazolam , GCMS Ur NEGATIVE [facility] Temazepam, GCMS Urine NEGATIVE [facility] Alphahydroxymidazolam ,GCGA Ur NEGATIVE [facility] Aminoclonazepam, GCGA Urine 829 [facility] Comment:REFERENCE RANGE: <25 ng/mL Flurazepam Metabolite,GCMS Ur NEGATIVE [facility] Benzodiazepines Comments SEE NOTE [facility] Comment:This drug testing is for medical treatment only. Analysiswas performed as non-forensic testing and these resultsshould be used only by healthcare providers to renderdiagnosis or treatment, or to monitor progress of medicalconditions.Benzodiazepines Notes:Aminoclonazepam detected is consistent with the use of thedrug Clonazepam.LDT Notes:Confirmation tests were developed and their analyticalperformance characteristics have been determined by [employer]. It has not been cleared or approved by the FDA.This assay has been validated pursuant to the CLIAregulations and is used for clinical purposes.Healthcare Providers needing Interpretation assistance,please contact us at [phone] ( ) M-F,8am to 10pm ESTTHIS TEST PERFORMED AT:[facility] [place] [phone] DIRECTOR: LIEN HARO MD Urine (Urine, Random) 10/29/2024 1:45 PM EST 10/29/2024 6:14 PM EST [facility] LAB URINE ORDERABLES Final Re sult [facility] [address] [place] [phone] * Referral to Audiology (10/05/2024) Result [facility] OUTPATIENT REFERRAL ORDERABLE S Final Result * (ABNORMAL) TSH W/Reflex to FT4 (10/01/2024 9:58 AM EST) Only the most recent of2 resultswithin the time period is included. TSH reflex Free T4 0.27(L) 0.32 - 4.0 uIU/mL [facility] Blood Venous blood specimen / Unknown 10/01/2024 9:58 AM EST 10/01/2024 11:04 AM EST [facility] LAB BLOOD ORDERABLES Final Re sult Performing Organization Address [facility] Co de Phone Number [facility] [address] [place] [address] [phone] * Thyroid Peroxidase Antibodies (10/01/2024 9:58 AM EST) Thyroid Peroxidase Antibodies <1 <9 IU/mL [facility] Comment:THIS TEST WAS PERFOR MED AT:[facility] [address] [phone] HARO MD Blood Venous blood specimen / Unknown 10/01/2024 9:58 AM EST 10/01/2024 11:04 AM EST [facility] LAB BLOOD ORDERABLES Final Re sult Performing Organization Address [facility] Phone Number [facility] [address] [place] [phone] * TRAb (TSH Receptor Binding Antibody) (10/01/2024 9:58 AM EST) TRAb (TSH Receptor Binding Antibody) <1.00 <=2.00 IU/L [facility] Comment:This test was perfor med using the TRAb Antibody ELISAmethod which is standardized against the [facility] indian health care centerInternational Standard 90/672 and is reported inInternational Units (IU/L). The reference rangereported was established specifically for this testmethod.THIS TEST WAS PERFORMED AT:[facility] [place] [address]MOAGKPPSALEEM IRBY MD,PHD Blood Venous blood specimen / Unknown 10/01/2024 9:58 AM EST 10/01/2024 11:04 AM EST [facility] LAB BLOOD ORDERABLES Final Re sult Performing Organization Address [facility] Co de Phone Number [facility] [address] [place] [phone] * HIV-1/2 Antigen and Antibodies, Fourth Generation, with Reflexes (10/01/2024 9:58 AM EST) Only the most recent of2 resultswithin the time period is included. HIV AB/AG Nonreactive Nonreactive [facility] Comment:HIV-1 p24 Ag and/or HIV-1/HIV-2 Ab not detected.A test result that is nonreactive does not exclude thepossibility of exposure to or infection with HIV-1 and/orHIV-2. Nonreactive results in this assay for individualswith prior exposure to HIV-1 and/or HIV-2 may be due toantigen and antibody levels that are below the limit ofdetection of this assay.[employer] HIV Ag/Ab Combo assay result andsupplemental assay results should be interpreted inconjunction with the patient's clinical presentation,history and other laboratory results. If the results areinconsistent with clinical evidence, additional testing issuggested to confirm the result. Blood Venous blood specimen / Unknown 10/01/2024 9:58 AM EST 10/01/2024 11:04 AM EST [facility] LAB BLOOD ORDERABLES Final Re sult Performing Organization Address City/[facility]/ZIP Co de Phone Number [facility] [address] [place] [phone] * T4, Free (10/01/2024 9:58 AM EST) Only the most recent of2 resultswithin the time period is included. Free T4 (Free Thyroxine) 0.91 0.71 - 1.85 ng/dL [facility] 10/01/2024 9:58 AM EST 10/01/2024 11:04 AM EST [facility] LAB BLOOD ORDERABLES Final Re sult Performing Organization Address City/[facility]/ZIP Co de Phone Number [facility] [address] [place] [phone] * MR Brain w/o Contrast (09/24/2024 3:41 PM EST) Anatomical Region Laterality Modality Brain Magnetic Resonan ce 09/24/2024 3:41 PM EST Narrative 09/25/2024 7:34 AM EST ? [facility] ?[address] ?[place] [address] ? Magnetic Resonance Report ? Signed ? Patient: Mcmahan,Hilda ?MR#: [id number] ?? [id number] ? : 1965 ?Acct:[id number] ? Age/Sex: 59 / F ?ADM Date: 09/24/24 ? Loc: HO.MRI ? Attending Dr: Ginger DUARTE ? Ordering Physician: Ginger Perez ?? Date of Service: 09/24/24 ?? Procedure(s): MR head/brain wo con ?? Accession Number(s): [id number] ? cc: Ginger Perez ? EXAMINATION: ??MR [...] signed by Kingston Chavis MD in OV> ?09/25/2431 ? DD/ 1541 ? TD/TT: 09/24/24 1624 ? Band Manager: ? Procedure Note Donmargie, Image - 09/25/[address] [address] Magnetic Resonance Report Signed Patient: Hilda McmahanMR#: [id number] : 1965Acct:[id number] Age/Sex: 59 / FADM Date: 09/24/24 Loc: HO.MRI Attending Dr: Ginger DUARTE Ordering Physician: Ginger Perez Date of Service: 09/24/24 Procedure(s): MR head/brain wo con Accession Number(s): [id number] cc: Ginger Perez EXAMINATION: MR BRAIN WITHOUT [...] 09/25/24 0731 DD/ 1541 TD/TT: 09/24/24 1624 Band Manager: [facility] IMG MRI PROCEDURES Final Resu lt * Syphilis Screen (09/14/2024 1:25 PM EST) Pathologist [facility] Syphilis Screen Nonreactive Nonreactive [facility] Blood 09/14/2024 1:25 PM EST 09/14/2024 4:07 PM EST [facility] LAB BLOOD ORDERABLES Final Re sult [facility] [address] [place] [phone] * (ABNORMAL) CBC auto differential (09/14/2024 1:25 PM EST) [facility] White Blood Count 7.5 4.8 - 10.8 X10*3/uL [facility] Red Blood Count 5.24 4.20 - 5.50 X10*6/uL [facility] Hemoglobin 13.7 12.0 - 16.0 g/dl [facility] Hematocrit 43.5 37.0 - 47.0 % [facility] Mean Corpuscular Volume 83.0 80.0 - 98.0 fL [facility] Mean Corpuscular Hemoglobin 26.1(L) 27.0 - 33.0 pg [facility] Mean Corpuscular HGB Conc 31.5 31.0 - 35.0 g/dl [facility] Red Cell Distribution Width 14.3 11.0 - 16.0 % [facility] Platelet Count 220 160 - 400 X10*3/uL [facility] Mean Platelet Volume 12.2 9.4 - 12.3 fL [facility] Neutrophils Percent Auto 54.9 45 - 73 % [facility] Imm Gran Pct Auto 0.8(H) 0.0 - 0.4 % [facility] Lymphocytes Percent Auto 33.4 20 - 40 % [facility] Monocytes Percent Auto 6.4 2 - 11 % [facility] Eosinophils Percent Auto 4.2(H) 0 - 4 % [facility] Basophils Percent Auto 0.3 0 - 2 % [facility] NRBC Pct Auto 0.0 0.0 - 0.2 /100WBC [facility] Neutrophils Absolute Auto 4.1 2.0 - 8.3 x10*3/uL [facility] Imm Gran Abs Auto 0.06(H) 0.00 - 0.03 X10*3/uL [facility] Lymphocytes Absolute Auto 2.5 1.2 - 4.9 X10*3/uL [facility] Monocytes Absolute Auto 0.5 0.1 - 1.2 X10*3/uL [facility] Eosinophils Absolute Auto 0.3 0.0 - 0.4 X10*3/uL [facility] Basophils Absolute Auto 0.0 0.0 - 0.2 X10*3/uL [facility] NRBC Abs Auto 0.000 0.0 - 0.012 X10*3/uL [facility] Blood Venous blood specimen / Unknown 09/14/2024 1:25 PM EST 09/14/2024 4:07 PM EST [facility] [employer] LAB BLOOD ORDERABLES Final Re sult [facility] [address] [place] [phone] * (ABNORMAL) Lipid Panel, Standard (09/14/2024 1:25 PM EST) Triglycerides 123 <150 mg/dL [facility] Comment:Desirable Triglyceri de: less than 150 mg/dLBorderline High Triglyceride 150-199 mg/dLHigh Triglyceride: 200-499 mg/dLVery High Triglyceride: greater than or equal to 5OO mg/dL Cholesterol 146 <200 mg/dL [facility] Comment:Desirable Cholestero l: less than 200 mg/dLBorderline High Cholesterol: 200-239 mg/dLHigh Cholesterol: greater than 239 mg/dL LDL Cholesterol Calculated 83 <100 mg/dL [facility] Comment:Desirable LDL: less than 100 mg/dLNear Optimal/Above Optimal LDL: 110- 129 mg/dLBorderline High LDL: 130-159 mg/dLHigh LDL: 160-189 mg/dLVery High LDL: greater than or equal to 190 mg/dL HDL Cholesterol 39(L) >40 mg/dL [facility] Comment:Desirable HDL: great er than 40 mg/dL Note: This HDL assay may give artificially low results in patients with liver disease. Blood Venous blood specimen / Unknown 09/14/2024 1:25 PM EST 09/14/2024 4:07 PM EST [facility] [employer] LAB BLOOD ORDERABLES Final Re sult [facility] [address] [place] [phone] * STI testing add on (NG, CT, Trich) (09/08/2024 9:30 AM EST) Trichomonas (NAAT) Not Detected Not Detected [facility] Comment:Methodology: Transcr iption Mediated Amplification(TMA)The analytical performance characteristics of thisassay have been determined by [facility], [place], [place]. The modificationshave not been cleared or approved by the FDA. Thisassay has been validated pursuant to the CLIAregulations and is used for clinical purposes.For additional information, please refer tohttp://education.[employer]/faq/Trichomonastma (This link is being providedfor information/educational purposes only).THIS TEST WAS PERFORMED AT:[facility] [place] [address]LEULKBPSALEEM IRBY MD,PHD CTNG Ref Lab Not Detected Not Detected [facility] NG Ref Lab Not Detected Not Detected [facility] Comment:Methodology: Transcr iption Mediated Amplification(TMA) to detect RNA.The analytical performance characteristics of thisassay, when used to test [employer] specimens havebeen determined by [employer]. The modificationshave not been cleared or approved by the FDA.This assay has been validated pursuant to the CLIAregulations and is used for clinical purposes.For additional information, please refer tohttps://education.[employer]/faq/NNQ787(This link is being provided for information/educational purposes only).THIS TEST WAS PERFORMED AT:[facility] [place] [address]RRBWXLK W. MASON,MD,PHD ThinPrep?? vial Cervix uteri structure / Unknown 09/08/2024 9:30 AM EST 09/09/2024 10:20 AM EST [facility] - 09/13/2024 11:00 PM EST Collection Date: [id number] by: WON Cardenas: Cervix us Corbin Hughes [facility] CYTOLOGY ORDERABLES F inal Result [facility] [address] [place] [phone] * Pap Smear (09/08/2024 9:30 AM EST) Swab Cervix uteri structure / Unknown 09/08/2024 9:30 AM EST 09/09/2024 10:20 AM EST [facility] - 09/17/2024 3:06 PM EST ----- ------- Name: Hilda Mcmahan ? Age/Sex: 59/F ? : 1965 Unit#: [id number] ?? Attend Dr: CORBIN HUGHES CNM ?Re09/08/24 ?Status: DEP REF ? Location: HO.LNP ?Disch: ? ----- ------- SPEC : [id number] ?RECD: 09/09/24-1019 ? STATUS: ??SOUT ? REQ NUM: [id number] ? LORI: 09/08/24 ? SUBM DR: CORBIN HUGHES CNM ? ENTERED: ??09/09/24 ?SP TYPE: Pap Smr ?OTHR DR: ? [...] ThinPrep-Cervical ----- ------- Signed (signature on file) Eli Lr CT (ASCP) 09/17/24 1506 ? ----- ------- ? END OF REPORT ? us Corbin Hughes [facility] CYTOLOGY ORDERABLES F inal Result [facility] [address] [place] [address] [phone] * BI Mammogram Screening Tomosynthesis Bilateral (08/27/2024 1:05 PM EST) Anatomical Region Laterality Modality Breast Bilateral Mammography 08/27/2024 1:05 PM EST Narrative 09/08/2024 4:57 PM EST ? [facility] ? [address] ?[place] [address] ? Mammography Report ? Signed ? Patient: Mcmahan,Hilda ?MR#: [id number] ?? [id number] ? : 1965 ?Acct:[id number] ? Age/Sex: 59 / F ?ADM Date: 08/27/24 ? Loc: HO.MAMMO ? Attending Dr: Oz Sahni MD ? Ordering Physician: Ginger Perez GLASS ENAMEL MIXER ?Results: 1Nega ?? tive ? Date of Service: 08/27/24 ?Follow Up: 1 Year From Orig ?? inal Mammogram ? Procedure(s): MM tomosynthesis screening BI ?? Accession Number(s): [id number] ? cc: Ginger Perez GLASS ENAMEL MIXER ? EXAMINATION: ?? MM SCREENING DIGITAL BREAST [...] ??09/08/2024 04:54 PM EST ? Dictated By: ?Pepper Mercer DO ? Signed By: ?<Electronically signed by Pepper Mercer, DO in OV> ? 09/08/24 1654 ? DD/ 1305 ? TD/TT: 08/27/24 1329 ? Band Manager: ? Procedure Note Donotrobininterpreter, Image - 09/08/2024 [facility] [address] [place] [address] Mammography Report Signed Patient: Hilda McmahanMR#: [id number] : 1965Acct:[id number] Age/Sex: 59 / FADM Date: 08/27/24 Loc: GIANLUCA Attending Dr: Oz Sahni MD Ordering Physician: Ginger Perez FNPResults: 1Nega tive Date of Service: 08/27/24Follow Up: 1 Year From Orig inal Mammogram Procedure(s): MM tomosynthesis screening BI Accession Number(s): [id number] cc: Ginger Perez GLASS ENAMEL MIXER EXAMINATION: MM SCREENING DIGITAL BREAST TOMOSYNTHESIS, BILATERAL [...] Pepper Mercer DO 09/08/2024 04:54 PM EST RP Dictated By: Pepper Mercer DO Signed By: <Electronically signed by Pepper Mercer DO in OV> 09/08/24 1654 DD/ 1305 TD/TT: 08/27/24 1329 Band Manager: [facility] GLASS ENAMEL MIXER IMG BI PROCEDURES Final Resul t * Ethanol (08/13/2024 5:21 AM EST) ETHANOL (MG/DL) IN SER/PLAS <10 mg/dL [facility] Comment:Serum/plasma ethanol results are to be used formedical/treatment purposes only. 08/13/2024 5:21 AM EST 08/13/2024 5:26 AM EST [facility] External Data Provider LAB BLOOD ORDERAB LES Final Result Performing Organization Address City/State/[facility] Co de Phone Number [facility] [address] [place] [phone] * (ABNORMAL) Drug Monitoring, Panel 1, Screen, Urine (08/13/2024 5:21 AM EST) Opiate Screen Urine Not Detected Not Detect [facility] Comment:Opiate cut-off is 30 0 ng/mL.Positive results are unconfirmed and should not be used fornon-medical purposes. Barbiturates, Urine Not Detected Not Detect [facility] Comment:Barbiturate cut-off is 200 ng/mL.Positive results are unconfirmed and should not be used fornon-medical purposes. Phencyclidine Screen Urine Not Detected Not Detect [facility] Comment:Phencyclidine cut-of f is 25 ng/mL.Positive results are unconfirmed and should not be used fornon-medical purposes. Amphetamine Screen Urine Not Detected Not Detect [facility] Comment:Amphetamine cut-off is 1000 ng/mL.Positive results are unconfirmed and should not be used fornon-medical purposes. Benzodiazepines Screen Urine Not Detected Not Detect [facility] Comment:Benzodiazepine cut-o ff is 200 ng/mL.Positive results are unconfirmed and should not be used fornon-medical purposes. Cocaine Screen Urine Not Detected Not Detect [facility] Comment:Cocaine cut-off is 3 00 ng/mL.Positive results are unconfirmed and should not be used fornon-medical purposes. Cannabinoid Screen Urine POSITIVE(A) Not Detect [facility] Comment:Cannabinoid cut-off is 50 ng/mL.Positive results are unconfirmed and should not be used fornon-medical purposes. Methadone Screen, Urine Not Detected Not Detect ng/mL [facility] Comment:Methadone cut-off is 300 ng/mL.Positive results are unconfirmed and should not be used fornon-medical purposes. FENTANYL URINE Not Detected Not Detect [facility] Comment:Fentanyl cut-off is 1 ng/mL.Positive results are unconfirmed and should not be used fornon-medical purposes. Oxycodone Urine Screen Not Detected Not Detect ng/mL [facility] Comment:Oxycodone cut-off is 100 ng/mL.Positive results are unconfirmed and should not be used fornon-medical purposes. Buprenorphine Screen Not Detected Not Detect ng/mL [facility] Comment:Buprenorphine cut-of f is 5 ng/mL.Positive results are unconfirmed and should not be used fornon-medical purposes. 08/13/2024 5:21 AM EST 08/13/2024 5:26 AM EST us Generic External Data Provider LAB URINE ORDERAB LES Final Result [facility] [address] [place] [phone] * Magnesium (08/13/2024 5:21 AM EST) Magnesium 1.9 1.6 - 2.6 mg/dL [facility] 08/13/2024 5:21 AM EST 08/13/2024 5:26 AM EST Generic External Data Provider LAB BLOOD ORDERAB LES Final Result Performing Organization Address [facility] de Phone Number [facility] [address] [place] [phone] * Hepatic Function Panel (08/13/2024 5:21 AM EST) Bilirubin, Total 0.5 0.0 - 1.0 mg/dL [facility] Bilirubin, Direct 0.2 0.0 - 0.5 mg/dL [facility] Aspartate Amino Transferase 22 5 - 31 U/L [facility] Alanine Aminotransferase 15 0 - 31 U/L [facility] Total Protein 7.4 6.5 - 8.0 g/dL [facility] Albumin Level 3.9 3.5 - 5.0 g/dL [facility] Alkaline Phosphatase 93 39 - 117 U/L [facility] 08/13/2024 5:21 AM EST 08/13/2024 5:26 AM EST [employer] External Data Provider LAB BLOOD ORDERAB LES Final Result Performing Organization Address [facility] Phone Number [facility] [address] [place] [phone] * (ABNORMAL) Basic Metabolic Panel (08/13/2024 5:21 AM EST) Sodium 148(H) 135 - 145 mmol/L [facility] Potassium 3.8 3.3 - 5.1 mmol/L [facility] Chloride 116(H) 96 - 108 mmol/L [facility] Carbon Dioxide 22 22 - 29 mmol/L [facility] Anion Gap 14 12 - 20 [facility] Urea Nitrogen (BUN) 11 9 - 16 mg/dL [facility] Creatinine, Serum 1.00 0.5 - 1.4 mg/dL [facility] Creatinine Clr Calc Pharmacy 70.0 [facility] Comment:Provided height and weight: 165.1 cm,102.058 kg.eGFR (calculated from the MDRD study equation) and eCrCl(calculated from the Cockcroft-Gault equation) are based ondifferent parameters and may not yield comparable results.If eCrCl result is absurd, please check patient'sheight/weight. Estimated Glomerular Filt Rate 56 [facility] Comment:Chronic Kidney Disea se: Estimated GFR < 60 mL/min/1.23y0Youcyd Kidney Disease: Estimated GFR < 15 mL/min/1.73m2 Glucose 110 60 - 115 mg/dL [facility] Calcium 9.9 8.4 - 10.2 mg/dL [facility] 08/13/2024 5:21 AM EST 08/13/2024 5:26 AM EST Generic External Data Provider LAB BLOOD ORDERAB LES Final Result [facility] [address] [place] [phone] * (ABNORMAL) POCT HGB A1C (05/13/2024 12:23 PM EDT) Pathologist [facility] Hemoglobin A1C 6.2(A) 4.0 - 6.0 % QC Media Lot # [id number] Lot# Expiration Date [id number] Blood 05/13/2024 12:2 3 PM EDT [facility] GLASS ENAMEL MIXER POINT OF CARE TEST ENTER/EDIT ORDERABLES Final Result * Hepatitis C Antibody with Reflex to HCV, RNA, Quantitative, Real-Time PCR (09/25/2022 12:06 PM EST) Hepatitis C Antibody NON-REACT MARRY NON-REACT MARRY [facility] [place] [facility] Index 0.12 <1.00 [facility] Comment: HCV antibody was non-reactive. There is no laboratory evidence of HCV infection. In most cases, no further action is required. However, if recent HCV exposure is suspected, a test for HCV RNA (test code 40515) is suggested. For additional information please refer to http://[employer]/faq/QWQ32f2 (This link is being provided for informational/ educational purposes only.) Blood Venous blood specimen / Unknown 09/25/2022 12:06 PM EST 09/25/2022 12:06 PM EST Narrative [facility] - 09/27/2022 8:46 AM EST FASTING:YES FASTING: YES [facility] LAB BLOOD ORDERABLES Final Re sult [facility] [address] [facility], [place] [phone] [facility] [facility] [address] [facility], (N[address]2) [place] [phone] * HPV mRNA E6/E7 (09/09/2019 11:55 AM EST) HPV mRNA E6/E7 Not Detected NOT DETECTED [facility] Comment: This test was performed using the APTIMA(R) HPV Assay ([employer] This assay detects E6/E7 viral messenger RNA (mRNA) from 14 high-risk HPV types (16,18,31,33,35,39,45,51, 52,56,58,59,66,68). For additional information please refer to: http://[employer]/faq/MOG203q5 (This link is being provided for informational/ educational purposes only.) The analytical performance characteristics of this assay have been determined by [employer] [place], [place]. The modifications have not been cleared or approved by the FDA. This assay has been validated pursuant to the CLIA regulations and is used for clinical purposes. Test Performed by [employer], [employer], [address] [place] [address] Saleem Irby M.D., Ph.D., Director of Laboratories , CLIA [id number] Please note: ??Effective 05/14/2016, HPV testing will be performed using [employer]'s APTIMA test which targets mRNA. Detecting mRNA instead of DNA, as in older methods, offers significant improvements in specificity. 09/09/2019 11:5 5 AM EST Corbin Hughes CNM HISTORICAL/NON ORDERABLE LABS Final Result [facility] [address] from Last 3 Months or Most Recently Relevant to Health Maintenance Insurance [facility] Care Teams Director Index Relationship Specialty Start Date End Date Ginger Perez FNP [address] [place] [phone] PCP - General Family Medicine 08/13/22
--- OUTSIDE RECORDS SUMMARY | 2024-11-05 16:28 | XMS_ITS | Encounter Summary ---
Author Organization [employer] Address [address] [facility] 7t [place] [address] Care Team Providers Care Millwright Name Role Phone [place] [facility] Primary Care Provider [phone] Reason for Visit * Reason Comments HORN PLAYER Initial HORN PLAYER Initial Encounter Details Date Type Department Care Team (Latest Contact Info) Description 10/29/2024 1:30 PM EST Clinical Support [facility] [address] [place], [place] [phone] Frida Knapp RN Mixed anxiety and depressive disorder (Primary Dx) Social History Tobacco Use Types [...] PM EDT documented as of this encounter Progress Notes * Frida Knapp RN - 10/29/2024 1:30 PM EST S: Pt here for initial HORN PLAYER Visit, accompanied by his DIALYSIS TECHNICIAN Roma. Prescribed Clonazepam 1mg Q8hr. Patients medications area administered by [facility], [facility]. I have made several attempts to reach [facility], unable to reach anyone. Pt reports usual [facility] nurse is away on vacation right now. States he has been taking medication as prescribed, last dose taken was this afternoon. Pt denies smoking cigarettes, ETOH use, Illegal drug use and marijuana use. He states that his Clonazepam is effective for his anxiety and seizure d/o. He sleeps ok and speaks with a therapist regularly. O: HORN PLAYER Tier 2. Pt currently prescribed Clonazepam 1mg Q8hr. MONTESSORI TODDLER TEACHER verified today. Rx last filled on 10/15/24. Pill count not performed as pts meds are administered via [facility]. Mag sent note home with patient to provide to his [facility] nurse karolyn in hopes of reaching them for his pill count. Also sent message to PCP to advise on what she would like done sicne I've been unable to reach anyone at [facility]. Godfrey pated he would have atleast 41 Clonazepam remaining as of today. UTOX completed. Positive for THC, Negative for AMP, BAR, BUP, BZO, RATNA, FTY, MDMA, MET, MOP, MTD, OXY, PCP, TCA. UTOX not as expected.Reviewed UTOX results, explained I would send out for BZO confirmation and I would call if results are abnormal. GIA-7 assessment completed this visit. Pt scored 13. Opioid Risk Assessment completed,patient scored a 14. Narcan medication reviewed, how it's administered and when it's used. Pt and DIALYSIS TECHNICIAN stated they understood. Will send request to PCP for Narcan RX and update on UTOX results. Last PCP visit was 09/14/24, scheduled next 12/16/24. A: HORN PLAYER Contract Initiation Visit, Chronic BZO use r/t anxiety. P: HORN PLAYER contract reviewed and signed, pt provided copy. Pt to continue taking medication only as prescribed; Next HORN PLAYER RV appointment scheduled for 01/19/25 @ 1:30p, F/U sooner PRN. Appointment remindergiven. Pt verbalized understanding and agreed to plan. * Frida Knapp RN - 10/29/2024 1:30 PM EST Spoke with PCP today, ok to skip count for this visit d/t difficulty in reaching the covering [facility] nurse administering pts medication. Will f/u with his regular [facility] nurse when she's back from vacation. documented in this encounter Plan of Treatment Upcoming Encounters Date Type Department Care Team (Late st Contact Info) Description 11/13/2024 10:30 AM EDT Telemedicine [address] [address] 12/16/2024 11:30 AM EDT Office Visit [address] [address] Ginger Perez FNP [address] [place] [address] 01/19/2025 1:30 PM EDT Clinical Support [address] [address] Aria, Frida, RN documented as of this encounter Procedures Procedure Name Priority Date/Time Associated Diagnosis Comments POCT BLANKA-14 URINE DRUG SCREEN Routine 10/29/2024 2:03 PM EST Mixed anxiety and depressive disorder DRUG MONITORING, BENZODIAZEPINES, QUANTITATIVE, URINE Routine 10/29/2024 1:45 PM EST Mixed anxiety and depressive disorder documented in this encounter Results * (ABNORMAL) POCT BLANKA-14 Urine Drug Screen (10/29/2024 2:03 PM EST) THC Positive Benzodiazepines Screen, Urine Negative Urine Urine specimen obtained by clean catch procedure / Unknown 10/29/2024 2:03 PM EST Narrative Frida Knapp RN - 10/29/2024 2:03 PM EST UTOX cup Lot#[id number] Exp. 04/21/26 Internal Pass Control [facility] POINT OF CARE TEST ENTER/EDIT ORDERABLES Final Result * Drug Monitoring, Benzodiazepines, Quantitative, Urine (10/29/2024 1:45 PM EST) Nordiazepam, GCMS Urine NEGATIVE [facility] Oxazepam, GCMS Urine NEGATIVE [facility] Lorazepam GCMS Urine NEGATIVE [facility] Alprazolam, GCMS Urine NEGATIVE [facility] Alphahydroxytriazolam , GCMS Ur NEGATIVE [facility] Temazepam, GCMS Urine NEGATIVE [facility] Alphahydroxymidazolam ,GCMS Ur NEGATIVE [facility] Aminoclonazepam, GCMS Urine 829 [facility] Comment:REFERENCE RANGE: <25 ng/mL Flurazepam Metabolite,GCMS Ur NEGATIVE [facility] Benzodiazepines Comments SEE NOTE [facility] Comment:This drug testing is for medical treatment only. Analysiswas performed as non-forensic testing and these resultsshould be used only by healthcare providers to renderdiagnosis or treatment, or to monitor progress of medicalconditions.Benzodiazepines Notes:Aminoclonazepam detected is consistent with the use of thedrug Clonazepam.LDT Notes:Confirmation tests were developed and their analyticalperformance characteristics have been determined by [employer]. It has not been cleared or approved by the FDA.This assay has been validated pursuant to the CLIAregulations and is used for clinical purposes.Healthcare Providers needing Interpretation assistance,please contact us at [phone] ( ) M-F,8am to 10pm ESTTHIS TEST PERFORMED AT:[facility] [place] [phone] DIRECTOR: LIEN HARO MD Urine (Urine, Random) 10/29/2024 1:45 PM EST 10/29/2024 6:14 PM EST [facility] LAB URINE ORDERABLES Final Re sult [facility] [address] [place] [phone] documented in this encounter Visit Diagnoses Diagnosis Mixed anxiety and depressive disorder- Primary Dysthymic disorder documented in this encounter Additional Health Concerns Assessment Noted Time PHQ-9 Depression Total Score: 13 03/16/ 024 11:27 AM EDT documented as of this encounter Care Teams Millwright Relationship Specialty Start Date End Date [facility] [address] [place] [phone] PCP - General Family Medicine 08/13/22 documented as of this encounter
--- OUTSIDE RECORDS SUMMARY | 2024-11-05 16:28 | XMS_ITS | Encounter Summary ---
Author Organization [employer] Address [address] [facility] 7t [place] [address] Care Team Providers Care File Drawer Finisher Name Role Phone [place] [facility] Primary Care Provider [phone] Reason for Visit * Reason Onset Date Comments Med Refill 10/29/2024 Encounter Details Date Type Department Care Team (Late st Contact Info) Description 10/29/2024 Refill [facility] [address] [place], [place] [phone] Frida Knapp RN Low back pain at multiple sites (Primary Dx) Social History Tobacco Use Types [...] Telephone Encounter - Frida Knapp RN - 10/29/2024 2:07 PM EST Pt had COMMUNITY SERVICES MANAGER Initial appt today GIA score of 13. Opioid Risk score of 14. UTOX was Neg BZO, sent out for confirmation. documented in this encounter Plan of Treatment Upcoming Encounters Date Type Department Care Team (Late st Contact Info) Description 11/13/2024 10:30 AM EDT Telemedicine [facility] [address] [place] [phone] 12/16/2024 11:30 AM EDT Office Visit [facility] [address] [place] [phone] WebsterGinger, [address] [address] 01/19/2025 1:30 PM EDT Clinical Support [facility] [address] [place] [phone] Frida Knapp, OZZY documented as of this encounter Visit Diagnoses Diagnosis Low back pain at multiple sites- Primary documented in this encounter Additional Health Concerns Assessment Noted Time PHQ-9 Depression Total Score: 13 024 11:27 AM EDT documented as of this encounter Care Teams File Drawer Finisher Relationship Specialty Start Date End Date Ginger Perez FNP [address] [place] [phone] PCP - General Family Medicine 08/13/22 documented as of this encounter
--- OUTSIDE RECORDS SUMMARY | 2024-11-05 16:28 | XMS_ITS | Encounter Summary ---
Demographics Address [address] [facility] [address] [place] [address] Mobile Phone Work Phone Home Phone Preferred Language en Marital Status Single Spiritism Affiliation Unknown Race Other Race Ethnic Group or Author Organization [employer] Address [address] [facility] 7t [place] [address] Care Team Providers Care Er Medical Technician Name Role Phone [facility] Primary Care Provider [phone] Encounter Details Date Type Department Care Team (Late st Contact Info) Description 11/05/2024 Orders Only GENERIC EXTERNAL DATA DEPARTMENT Provider, Generic External Data Social History Tobacco Use Types Packs/Day Years [...] Info) Description 11/13/2024 10:30 AM EDT Telemedicine [address] [address] 12/16/2024 11:30 AM EDT Office Visit [address] [address] [address] [address] 01/19/2025 1:30 PM EDT Clinical Support [address] [address] Frida Knapp RN documented as of this encounter Procedures Procedure Name Priority Date/Time Associated Diagnosis Comments GLUCOSE, WHOLE BLOOD Routine 11/05/2024 2:23 PM EST GLUCOSE, WHOLE BLOOD Routine 11/05/2024 1:54 PM EST documented in this encounter Results * Glucose, Whole Blood (11/05/2024 2:23 PM EST) Glucose, Whole Blood 87 60 - 115 mg/dL [facility] Comment:METER #: [id number] 5Testing performed in the Endocrinology Department [address] , [address], [facility]. 11/05/2024 2:23 PM EST 11/05/2024 2:30 PM EST us Generic External Data Provider LAB BLOOD ORDERAB LES Final Result Performing Organization Address City/[facility]/ZIP Co de Phone Number [facility] [address] [place] [phone] [phone] * Glucose, Whole Blood (11/05/2024 1:54 PM EST) Glucose, Whole Blood 77 60 - 115 mg/dL [facility] Comment:METER #: [id number] 5Testing performed in the Endocrinology Department [address] , [address], [facility]. 11/05/2024 1:54 PM EST 11/05/2024 2:00 PM EST us Generic External Data Provider LAB BLOOD ORDERAB LES Final Result Performing Organization Address [facility] Co de Phone Number [facility] [address] [place] [phone] documented in this encounter Visit Diagnoses Not on filedocumented in this encounter Additional Health Concerns Assessment Noted Time PHQ-9 Depression Total Score: 13 03/16/ 024 11:27 AM EDT documented as of this encounter Care Teams Er Medical Technician Relationship Specialty Start Date End Date Ginger Perez FNP [address] [place] [phone] PCP - General Family Medicine 08/13/22 documented as of this encounter
--- OUTSIDE RECORDS SUMMARY | 2024-11-05 16:28 | XMS_ITS | Encounter Summary ---
Author Organization [employer] Address [address] [facility] 7t [place] [address] Care Team Providers Care Outside Food Server Name Role Phone [facility] Primary Care Provider [phone] Reason for Visit * Reason Comments Med Refill Encounter Details Date Type Department Care Team ([facility] st Contact Info) Description 05/22/2024 Refill [facility] [address] [place], [place] [phone] Roma Man MD [address] [place] [address] Onychomycosis Social History Tobacco Use Types Packs/Day [...] Info) Description 11/13/2024 10:30 AM EDT Telemedicine [address] [address] 12/16/2024 11:30 AM EDT Office Visit [address] [address] Ginger Perez [address] [address] 01/19/2025 1:30 PM EDT Clinical Support [address] [address] Frida Knapp RN documented as of this encounter Visit Diagnoses Diagnosis Onychomycosis Dermatophytosis of nail documented in this encounter Additional Health Concerns Assessment Noted Time PHQ-9 Depression Total Score: 13 024 11:27 AM EDT documented as of this encounter Care Teams Outside Food Server Relationship Specialty Start Date End Date Ginger Perez FNP [address] [place] [phone] PCP - General Family Medicine 08/13/22 documented as of this encounter
--- OUTSIDE RECORDS SUMMARY | 2024-11-05 16:28 | XMS_ITS | Encounter Summary ---
Author Organization [employer] Address 75 [facility] 7t [place] [address] Care Team Providers Care Sap Portal Consultant Name Role Phone [facility] Primary Care Provider [phone] Reason for Visit * Reason Onset Date Comments Results 10/06/2024 Encounter Details Date Type Department Care Team ([facility] st Contact Info) Description 10/06/2024 Telephone [facility] [address] [place], [place] [phone] [facility] 230 [place], [place] [phone] Results Social History Tobacco Use Types Packs/Day [...] 10/06/2024 9:56 AM EST ----- Message from Ginger [place] sent at 10/05/2024 3:54 PM EST ----- Please let patient know that brain MRI was negative. Thank you! documented in this encounter Plan of Treatment Upcoming Encounters Date Type Department Care Team (Late st Contact Info) Description 11/13/2024 10:30 AM EDT Telemedicine [facility] [address] [place] [address] 12/16/2024 11:30 AM EDT Office Visit [facility] [address] [place] [address] Ginger Perez FNP 230 [place] [address] 01/19/2025 1:30 PM EDT Clinical Support [facility] [address] [place] [address] Frida Knapp RN documented as of this encounter Visit Diagnoses Not on filedocumented in this encounter Additional Health Concerns Assessment Noted Time PHQ-9 Depression Total Score: 13 024 11:27 AM EDT documented as of this encounter Care Teams Sap Portal Consultant Relationship Specialty Start Date End Date Ginger Perez FNP 230 [place] [address] PCP - General Family Medicine 08/13/22 documented as of this encounter
--- OUTSIDE RECORDS SUMMARY | 2024-11-05 16:28 | XMS_ITS | Encounter Summary ---
Author Organization [employer] Address 75 [facility] 7t [place] [address] Care Team Providers Care Supervisor Drying And Winding Name Role Phone [facility] Primary Care Provider [phone] Encounter Details Date Type Department Care Team ([facility] st Contact Info) Description 10/23/2024 Telephone [facility] [address] [place], [place] [phone] [facility] 230 [place], [place] [phone] Social History Tobacco Use Types Packs/Day Years [...] for patient to contact Trudi Victor at [phone]. documented in this encounter Plan of Treatment Upcoming Encounters Date Type Department Care Team ([facility] st Contact Info) Description 11/13/2024 10:30 AM EDT Telemedicine [facility] [address] [place] [address] 12/16/2024 11:30 AM EDT Office Visit [facility] [address] [place] [address] Ginger Perez FNP 230 [place] [address] 01/19/2025 1:30 PM EDT Clinical Support [facility] [address] [place] [address] Frida Knapp RN documented as of this encounter Visit Diagnoses Not on filedocumented in this encounter Additional Health Concerns Assessment Noted Time PHQ-9 Depression Total Score: 13 024 11:27 AM EDT documented as of this encounter Care Teams Supervisor Drying And Winding Relationship Specialty Start Date End Date Ginger Perez FNP [address] [place] [address] PCP - General Family Medicine 08/13/22 documented as of this encounter
--- OUTSIDE RECORDS SUMMARY | 2024-11-05 16:28 | XMS_ITS | Encounter Summary ---
Author Organization [employer] Address 75 [facility] 7t [place] [address] Care Team Providers Care Electric Motor Repairman Name Role Phone [place] [facility] Primary Care Provider [phone] Encounter Details Date Type Department Care Team (Late st Contact Info) Description 08/22/2022 Refill [facility] 230 [place], [place] [phone] [facility] 230 [place], [place] [phone] Muscle spasm Social History Tobacco Use Types [...] Info) Description 11/13/2024 10:30 AM EDT Telemedicine [facility] [address] [place] [phone] 12/16/2024 11:30 AM EDT Office Visit [facility] [place] [address] Ginger Perez FNP 230 [place] [address] 01/19/2025 1:30 PM EDT Clinical Support [facility] [place] [address] Frida Knapp RN documented as of this encounter Visit Diagnoses Diagnosis Muscle spasm Spasm of muscle documented in this encounter Additional Health Concerns Assessment Noted Time PHQ-9 Depression Total Score: 9 08/21/20 10:14 AM EST documented as of this encounter Care Teams Electric Motor Repairman Relationship Specialty Start Date End Date Ginger [place] [address] PCP - General Family Medicine 08/13/22 documented as of this encounter
--- OUTSIDE RECORDS SUMMARY | 2024-11-05 16:28 | XMS_ITS | Encounter Summary ---
Author Organization [employer] Address 75 [facility] 7t [place] [address] Care Team Providers Care Biophysics Professor Name Role Phone [place] [facility] Primary Care Provider Reason for Visit * Reason Onset Date Comments [facility] 10/20/2024 Encounter Details Date Type Department Care Team ([facility] st Contact Info) Description 10/20/2024 Telephone [facility] 230 [place], [place] [phone] Frida Knapp RN [facility] Social History Tobacco Use Types Packs/Day [...] - 10/20/2024 11:17 AM EST TC to [facility], no answer. L/M asking they call back regarding who is covering this patient formedication administration while her primary nurse is on vacation. documented in this encounter Plan of Treatment Upcoming Encounters Date Type Department Care Team (Late st Contact Info) Description 11/13/2024 10:30 AM EDT Telemedicine [address] [address] 12/16/2024 11:30 AM EDT Office Visit [address] [address] [facility] 230 [place] [address] 01/19/2025 1:30 PM EDT Clinical Support [address] [address] Frida Knapp, RN documented as of this encounter Visit Diagnoses Not on filedocumented in this encounter Additional Health Concerns Assessment Noted Time PHQ-9 Depression Total Score: 13 024 11:27 AM EDT documented as of this encounter Care Teams Biophysics Professor Relationship Specialty Start Date End Date Ginger PerezGERALD [address] [place] [address] PCP - General Family Medicine 08/13/22 documented as of this encounter
--- OUTSIDE RECORDS SUMMARY | 2024-11-05 16:28 | XMS_ITS | Encounter Summary ---
Author Organization [employer] Address 75 [facility] 7t [place] [address] Care Team Providers Care Final Inspector Name Role Phone [place] [facility] Primary Care Provider [phone] Reason for Visit * Reason Onset Date Comments Med Refill 10/15/2024 Encounter Details Date Type Department Care Team (Late st Contact Info) Description 10/15/2024 Refill [facility] 230 [place], [place] [phone] Frida Knapp RN Mixed anxiety and depressive [...] your housing situation today? I have lamar meagn 10/03/[address] you li [...] Info) Description 11/13/2024 10:30 AM EDT Telemedicine [address] [address] 12/16/2024 11:30 AM EDT Office Visit [address] [address] Ginger Perez FNP [address] [place] [address] 01/19/2025 1:30 PM EDT Clinical Support [address] [address] Frida Knapp RN documented as of this encounter Visit Diagnoses Diagnosis Mixed anxiety and depressive disorder Dysthymic disorder documented in this encounter Additional Health Concerns Assessment Noted Time PHQ-9 Depression Total Score: 13 024 11:27 AM EDT documented as of this encounter Care Teams Final Inspector Relationship Specialty Start Date End Date Ginger Perez FNP [address] [place] [address] PCP - General Family Medicine 08/13/22 documented as of this encounter
--- OUTSIDE RECORDS SUMMARY | 2024-11-05 16:28 | XMS_ITS | Encounter Summary ---
Demographics Address [address] [facility] [address] [place] [address] Mobile Phone Work Phone Home Phone Preferred Language en Marital Status Single Voodoo Affiliation Unknown Race Other Race Ethnic Group or Author Organization [employer] Address 75 [facility] 7t [place] [address] Care Team Providers Care Accounts Receivable Coordinator Name Role Phone [facility] Primary Care Provider [phone] Encounter Details Date Type Department Care Team (Latest Contact Info) Description 10/29/2024 Travel Social History Tobacco Use Types Packs/Day [...] Info) Description 11/13/2024 10:30 AM EDT Telemedicine [address] [address] 12/16/2024 11:30 AM EDT Office Visit [address] [address] Ginger Perez FNP [address] [place] [address] 01/19/2025 1:30 PM EDT Clinical Support [address] [address] Frida Knapp, OZZY documented as of this encounter Visit Diagnoses Not on filedocumented in this encounter Additional Health Concerns Assessment Noted Time PHQ-9 Depression Total Score: 13 024 11:27 AM EDT documented as of this encounter Care Teams Accounts Receivable Coordinator Relationship Specialty Start Date End Date Ginger Perez FNP [address] [place] [address] PCP - General Family Medicine 08/13/22 documented as of this encounter
--- OUTSIDE RECORDS SUMMARY | 2024-11-05 16:28 | XMS_ITS | Encounter Summary ---
Author Organization [employer] Address 75 [facility] 7t [place] [address] Care Team Providers Care Machine Precision Engraver Name Role Phone [facility] Primary Care Provider [phone] Reason for Visit * Reason Onset Date Comments Referral 07/19/2023 Encounter Details Date Type Department Care Team ([facility] st Contact Info) Description 07/19/2023 Telephone [facility] 230 [place], [place] [phone] [facility] 230 [place], [place] [phone] Referral Social History Tobacco Use Types Packs/Day [...] 10:29 AM EST Tc from sarah with [facility] states [facility] has not received referral. Also requesting for referral to be sent to a different location due to no availability. Any questions, contact sarah at [phone] documented in this encounter Plan of Treatment Upcoming Encounters Date Type Department Care Team (Late st Contact Info) Description 11/13/2024 10:30 AM EDT Telemedicine [address] [address] 12/16/2024 11:30 AM EDT Office Visit [address] [address] [place] [address] [address] 01/19/2025 1:30 PM EDT Clinical Support [facility] [address] [place] [address] Frida Knapp, OZZY documented as of this encounter Visit Diagnoses Not on filedocumented in this encounter Additional Health Concerns Assessment Noted Time PHQ-9 Depression Total Score: 16 023 9:09 AM EDT documented as of this encounter Care Teams Machine Precision Engraver Relationship Specialty Start Date End Date [place] Ginger [facility] [address] [place] [address] PCP - General Family Medicine 08/13/22 documented as of this encounter
--- OUTSIDE RECORDS SUMMARY | 2024-11-05 16:28 | XMS_ITS | Encounter Summary ---
Author Organization [employer] Address 75 [facility] 7t [place] [address] Care Team Providers Care Neurourologist Name Role Phone [facility] Primary Care Provider [phone] Reason for Visit * Reason Onset Date Comments Nurse Triage 10/07/2023 Encounter Details Date Type Department Care Team ([facility] st Contact Info) Description 10/07/2023 Telephone [facility] 230 [place], [place] [phone] [facility] 230 [place], [place] [phone] Nurse Triage Social History Tobacco Use Types [...] 10/07/2023 3:17 PM EST TC placed to [facility], Ct scan rescheduled to 10/10/23 at [...] still having kidney pain . Patient speaks Sami. Advised triage nurse will call patient back. documented in this encounter Plan of Treatment Upcoming Encounters Date Type Department Care Team (Late st Contact Info) Description 11/13/2024 10:30 AM EDT Telemedicine [address] [address] 12/16/2024 11:30 AM EDT Office Visit [address] [address] [place] Ginger, [address] [address] 01/19/2025 1:30 PM EDT Clinical Support [address] [address] Frida Knapp RN documented as of this encounter Visit Diagnoses Not on filedocumented in this encounter Additional Health Concerns Assessment Noted Time PHQ-9 Depression Total Score: 0 10/03/19 24 10:12 AM EST documented as of this encounter Care Teams Neurourologist Relationship Specialty Start Date End Date [place] [address] [place] [address] PCP - General Family Medicine 08/13/22 documented as of this encounter
--- OUTSIDE RECORDS SUMMARY | 2024-11-05 16:28 | XMS_ITS | Encounter Summary ---
Author Organization [employer] Address 75 [facility] 7t [place] [address] Care Team Providers Care Fuel Handler Name Role Phone [facility] Primary Care Provider [phone] Reason for Visit * Reason Comments Med Refill Encounter Details Date Type Department Care Team ([facility] st Contact Info) Description 06/25/2023 Refill [facility] 230 [place], [place] [phone] [facility] 230 [place], [place] [phone] Muscle spasm Social History Tobacco Use Types [...] Info) Description 11/13/2024 10:30 AM EDT Telemedicine [address] [address] 12/16/2024 11:30 AM EDT Office Visit [address] [address] Ginger Perez FNP [address] [place] [address] 01/19/2025 1:30 PM EDT Clinical Support [address] [address] Frida Knapp RN documented as of this encounter Visit Diagnoses Diagnosis Muscle spasm Spasm of muscle documented in this encounter Additional Health Concerns Assessment Noted Time PHQ-9 Depression Total Score: 16 023 9:09 AM EDT documented as of this encounter Care Teams Fuel Handler Relationship Specialty Start Date End Date Ginger Perez FNP [address] [place] [address] PCP - General Family Medicine 08/13/22 documented as of this encounter
--- OUTSIDE RECORDS SUMMARY | 2024-11-05 16:28 | XMS_ITS | Encounter Summary ---
Author Organization [employer] Address 75 [facility] 7t [place] [address] Care Team Providers Care Management Consulting Name Role Phone [place] [facility] Primary Care Provider [phone] Reason for Visit * Reason Onset Date Comments Recommend SHIPWRIGHT APPRENTICE Tier 2 10/29/2024 Encounter Details Date Type Department Care Team ([facility] st Contact Info) Description 10/29/2024 Telephone [facility] 230 [place], [place] [phone] Frida Knapp, OZZY Recommend SHIPWRIGHT APPRENTICE Tier 2 Social History Tobacco Use Types Packs/Day Years [...] Encounter - Frida Knapp RN - 10/29/2024 7:39 AM EST What SHIPWRIGHT APPRENTICE Tier would you like this patient to be? I recommend Tier 2, please let me know if you agree or would rather patient be in another SHIPWRIGHT APPRENTICE Tier. Tier 1 = HIGH RISK, Monthly SHIPWRIGHT APPRENTICE visits Tier 2 = MODerate RISK, Q3 Month visits Tier 3 = LOW RISK = Q4-6 month visits Also, I have attempted to reach patients VNJayla multiple times ([place]) for her Clonazepam count. I have been unable to reach anyone. Her current nurse is away on vacation. Please advise on what you would like me to do for her Clonazepam count since [facility] is administering her medication. documented in this encounter Plan of Treatment Upcoming Encounters Date Type Department Care Team (Late st Contact Info) Description 11/13/2024 10:30 AM EDT Telemedicine [facility] [address] [place] [phone] 12/16/2024 11:30 AM EDT Office Visit [facility] 230 [place] [address] [place], [place], [facility] 230 [place] [address] 01/19/2025 1:30 PM EDT Clinical Support [facility] 230 [place] [address] Frida Knapp RN documented as of this encounter Visit Diagnoses Not on filedocumented in this encounter Additional Health Concerns Assessment Noted Time PHQ-9 Depression Total Score: 13 024 11:27 AM EDT documented as of this encounter Care Teams Management Consulting Relationship Specialty Start Date End Date Ginger Perez FNP 230 [place] [address] PCP - General Family Medicine 08/13/22 documented as of this encounter
--- OUTSIDE RECORDS SUMMARY | 2024-11-05 16:28 | XMS_ITS | Encounter Summary ---
Author Organization [employer] Address 75 [facility] 7t [place] [address] Care Team Providers Care Mortar Man Name Role Phone [facility] Primary Care Provider [phone] Reason for Visit * Reason Onset Date Comments Call Back Request 10/09/2024 Encounter Details Date Type Department Care Team ([facility] st Contact Info) Description 10/09/2024 Telephone [facility] 230 [place], [place] [phone] [facility] 230 [place] [address] Call Back Request Social History Tobacco Use [...] do external/abdominal? * Telephone Encounter - Jazzmine Maganakamilla Dukes - 10/09/2024 2:48 PM EST Tc joseph Tong with [facility] to clarify if its necessary to do another ultrasound (transvaginal) because the pt refuses to perform it. Any questions contact: [phone] documented in this encounter Plan of Treatment Upcoming Encounters Date Type Department Care Team (Late st Contact Info) Description 11/13/2024 10:30 AM EDT Telemedicine [facility] [place] [address] 12/16/2024 11:30 AM EDT Office Visit [facility] [place] [address] Ginger Perez FNP [address] [place] [address] [place] [address] 01/19/2025 1:30 PM EDT Clinical Support [facility] [place] [address] Frida Knapp, OZZY documented as of this encounter Visit Diagnoses Not on filedocumented in this encounter Additional Health Concerns Assessment Noted Time PHQ-9 Depression Total Score: 13 024 11:27 AM EDT documented as of this encounter Care Teams Mortar Man Relationship Specialty Start Date End Date Ginger Perez FNP [facility] [place] [address] PCP - General Family Medicine 08/13/22 documented as of this encounter
--- OUTSIDE RECORDS SUMMARY | 2024-11-05 16:28 | XMS_ITS | Encounter Summary ---
Author Organization [employer] Address [address] [facility] 7t [place] [address] Care Team Providers Care Recoating Machine Operator Name Role Phone [facility] Primary Care Provider [phone] Reason for Visit * Reason Onset Date Comments Medication Question 10/15/2024 Encounter Details Date Type Department Care Team ([facility] st Contact Info) Description 10/15/2024 Telephone [facility] 230 [place], [place] [phone] [facility] 230 [place], [place] [phone] Medication Question Social History Tobacco Use Types [...] 10/16/2024 2:47 PM EST TC to patient. COLD ROLLER Initial appt scheduled for 10/29/24 @ 1:30pm. Patient states she has a [facility] Nurse,Molly, who comes to her house 2 x a day to give him his medication and her REPLENISHMENT MERCHANDISING ASSOCIATE Roma comes to all her appointments with her. * Telephone Encounter - Estela Avelar RN - 10/15/2024 2:30 PM EST Additional call from pharmacy, pt would also like to go back to having [facility], requesting referral from PCP. * Telephone Encounter - Estlea Avelar RN - 10/15/2024 1:36 PM EST Incoming phone call from [facility] Pharmacy (Ariela) who stated that the pt is requesting refills on 2 medications, would like PCP review: - Clonazepam 1mg TID: previously prescribed by GERALD Webb from [facility]. Pt is due, last pickedup on 09/08/24. Pharmacy is wondering if PCP can take over prescribing this medication. - Mounjaro 5mg: picked up 10/09/24 however pt lost the medication somewhere between [facility] and her home. Pharmacy is asking for new script and will then call insurance to get authorization on early refill. Advised pharmacy that PCP out of office today and will be in office tomorrow. Ariela verbalized understating. documented in this encounter Plan of Treatment Upcoming Encounters Date Type Department Care Team (Late st Contact Info) Description 11/13/2024 10:30 AM EDT Telemedicine [address] [address] 12/16/2024 11:30 AM EDT Office Visit [facility] MEDICINE [address] [place] [address] Ginger Perez [address] [address] 01/19/2025 1:30 PM EDT Clinical Support [facility] MEDICINE [address] [place] [address] Frida Knapp RN documented as of this encounter Visit Diagnoses Not on filedocumented in this encounter Additional Health Concerns Assessment Noted Time PHQ-9 Depression Total Score: 13 024 11:27 AM EDT documented as of this encounter Care Teams Recoating Machine Operator Relationship Specialty Start Date End Date Ginger Perez FNP [address] [place] [address] PCP - General Family Medicine 08/13/22 documented as of this encounter
--- OUTSIDE RECORDS SUMMARY | 2024-11-05 16:28 | XMS_ITS | Encounter Summary ---
Author Organization [employer] Address 75 [facility] 7t [place] [address] Care Team Providers Care Beater Head Name Role Phone [facility] Primary Care Provider [phone] Reason for Visit * Reason Comments Med Refill Encounter Details Date Type Department Care Team ([facility] st Contact Info) Description 05/22/2024 Refill [facility] 230 [place], [place] [phone] [facility] 230 [place], [place] [phone] Low back pain at multiple sites Social [...] Info) Description 11/13/2024 10:30 AM EDT Telemedicine [address] [address] 12/16/2024 11:30 AM EDT Office Visit [address] [address] Ginger Perez FNP [address] [place] [address] 01/19/2025 1:30 PM EDT Clinical Support [address] [address] Frida Knapp, OZZY documented as of this encounter Visit Diagnoses Diagnosis Low back pain at multiple sites documented in this encounter Additional Health Concerns Assessment Noted Time PHQ-9 Depression Total Score: 13 024 11:27 AM EDT documented as of this encounter Care Teams Beater Head Relationship Specialty Start Date End Date Ginger Perez FNP [address] [place] [address] PCP - General Family Medicine 08/13/22 documented as of this encounter
--- OUTSIDE RECORDS SUMMARY | 2024-11-05 16:28 | XMS_ITS | Encounter Summary ---
Author Organization [employer] Address 75 [facility] 7t [place] [address] Care Team Providers Care And Drying Supervisor Cooking Casing Name Role Phone Ginger Perez Primary Care Provider [phone] Reason for Referral * Consultation (Routine) - Authorized Specialty Diagnoses / Procedures Referred By Melita bingham Referred To Contact Pharmacy Diagnoses Type 2 diabetes mellitus with chronic kidney disease, with long-term current use of insulin, unspecified CKD stage (CMS/HCC) Ginger Perez FNP [address] [place] [address] Phone: tel: fax: Referral ID Status Reason Start Date Expiration Date Visits Requested Visits Authorized [id number] Authorized Continuity of Care 10/16/2024 10/16/2025 6 6 Encounter Details Date Type Department Care Team (Late st Contact Info) Description 10/16/2024 Orders Only [facility] [address] [place], [place] [phone] Ginger Perez FNP [address] [place], [place] [phone] Type 2 diabetes mellitus with chronic kidney [...] Info) Description 11/13/2024 10:30 AM EDT Telemedicine [facility] [address] [place] [phone] 12/16/2024 11:30 AM EDT Office Visit [facility] [address] [place] [address] [address], [facility] [address] [place] [address] 01/19/2025 1:30 PM EDT Clinical Support [facility] [address] [place] [address] Frida Knapp RN Scheduled Referrals Name Type Priority Associated Diagnoses [...] documented as of this encounter Care Teams And Drying Supervisor Cooking Casing Relationship Specialty Start Date End Date Ginger Perez FNP [address] [place] [address] PCP - General Family Medicine 08/13/22 documented as of this encounter
--- OUTSIDE RECORDS SUMMARY | 2024-11-05 16:28 | XMS_ITS | Encounter Summary ---
Author Organization [employer] Address 75 [facility] 7t [place] [address] Care Team Providers Care Director Of Strategy & Mobile Name Role Phone [facility] Primary Care Provider [phone] Reason for Visit * Reason Onset Date Comments Nurse Triage 08/18/2024 Encounter Details Date Type Department Care Team ([facility] st Contact Info) Description 08/18/2024 Telephone [facility] [address] [place], [place] [phone] [facility] [address] [place], [place] [phone] Nurse Triage Social History Tobacco Use Types [...] AM EST Tc from pt returning call [phone] * Telephone Encounter - Francie Au RN - 08/18/2024 11:47 AM EST Triage call Pt reports abnormal vaginal bleeding which has been occurring for last several months. Pt reports spotting started yesterday and usually this is gone in a day. This time it is the second day of this spotting and drainage is black in color. Pt denies any other symptoms. Pt reports GENERAL OPERATOR advised to call to see provider. ASK [...] Info) Description 11/13/2024 10:30 AM EDT Telemedicine [facility] [address] [place] [address] 12/16/2024 11:30 AM EDT Office Visit [facility] [address] [place] [address] Ginger Perez FNP [address] [place] [address] 01/19/2025 1:30 PM EDT Clinical Support [facility] [address] [place] [address] Frida Knapp, OZZY documented as of this encounter Visit Diagnoses Not on filedocumented in this encounter Additional Health Concerns Assessment Noted Time PHQ-9 Depression Total Score: 13 024 11:27 AM EDT documented as of this encounter Care Teams Director Of Strategy & Mobile Relationship Specialty Start Date End Date Ginger Perez FNP [address] [place] [address] PCP - General Family Medicine 08/13/22 documented as of this encounter
--- OUTSIDE RECORDS SUMMARY | 2024-11-05 16:28 | XMS_ITS | Encounter Summary ---
Author Organization [employer] Address 75 [facility] 7t [place] [address] Care Team Providers Care Refurbish Technician Name Role Phone [facility] Primary Care Provider [phone] Reason for Visit * Reason Comments Med Refill Encounter Details Date Type Department Care Team ([facility] st Contact Info) Description 11/22/2023 Refill [facility] 230 [place], [place] [phone] [facility] 230 [place], [place] [phone] Type 2 diabetes mellitus with hyperglycemia, with long-term current use of insulin ([facility]) Social History Tobacco Use Types [...] the past 12 months, has t he [employer], gas, oil or water company threatened to [...] Info) Description 11/13/2024 10:30 AM EDT Telemedicine [address] [address] 12/16/2024 11:30 AM EDT Office Visit [address] [address] AnaGinger canales [address] [address] 01/19/2025 1:30 PM EDT Clinical Support [address] [address] Frida Knapp RN documented as of this encounter Visit Diagnoses Diagnosis Type 2 diabetes mellitus with hyperglycemia, with long-term current use of insulin ([facility]) documented in this encounter Additional Health Concerns Assessment Noted Time PHQ-9 Depression Total Score: 0 11/13/19 24 3:08 PM EDT documented as of this encounter Care Teams Refurbish Technician Relationship Specialty Start Date End Date BronxGinger canales [facility] [address] [place] [address] PCP - General Family Medicine 08/13/22 documented as of this encounter
--- OUTSIDE RECORDS SUMMARY | 2024-11-05 16:28 | XMS_ITS | Encounter Summary ---
Author Organization [employer] Address 75 [facility] 7t [place] [address] Care Team Providers Care Treatment Specialist Name Role Phone [place] Primary Care Provider [phone] Reason for Visit * Reason Onset Date Comments Error (VOID this visit) 11/02/2024 Encounter Details Date Type Department Care Team ([facility] st Contact Info) Description 11/02/2024 Telephone [facility] [address] [place], [place] [phone] Frida Knapp RN Error (VOID this visit) Social History Tobacco Use Types Packs/Day Years [...] Info) Description 11/13/2024 10:30 AM EDT Telemedicine [address] [address] 12/16/2024 11:30 AM EDT Office Visit [address] [address] Ginger Perez FNP [address] [place] [address] 01/19/2025 1:30 PM EDT Clinical Support [address] [address] Frida Knapp RN documented as of this encounter Visit Diagnoses Not on filedocumented in this encounter Additional Health Concerns Assessment Noted Time PHQ-9 Depression Total Score: 13 024 11:27 AM EDT documented as of this encounter Care Teams Treatment Specialist Relationship Specialty Start Date End Date Ginger Perez FNP [address] [place] [address] PCP - General Family Medicine 08/13/22 documented as of this encounter
--- OUTSIDE RECORDS SUMMARY | 2024-11-05 16:29 | XMS_ITS | Encounter Summary ---
Author Organization [employer] Address 75 [facility] 7t [place] [address] Care Team Providers Care Nurse Care Manager Name Role Phone [facility] Primary Care Provider Reason for Visit * Reason Onset Date Comments Nurse Triage 10/01/2024 Encounter Details Date Type Department Care Team ([facility] st Contact Info) Description 10/01/[address] [facility] [address] [place], [place] [phone] [facility] 230 [place], [place] [phone] Nurse Triage Social History Tobacco Use Types [...] 2:35 PM EST TC placed to patient [phone] in regards to below message. Patient reports she forgot to come to [facility] to be evaluated for potentially infected toe nail. Patient reports she will come today or tomorrow. Patient advised of importance of being evaluated as patient may need abx or referral to specialist. Patient verbalized understanding. * Telephone Encounter - Kimberly Michael RN - 10/05/2024 9:21 AM EST TC placed to [phone] in regards to below message. Patient did not answer, RN left requesting CB to red team nurses. Patient to f/u PRN. * Telephone Encounter - Shirin Dietz RN - 10/01/2024 3:41 PM EST [...] too small. Will send note to t [facility] nurses to look into this matter. Protocol [...] Reason: Trouble walking Please contact pt at [phone]. documented in this encounter Plan of Treatment Upcoming Encounters Date Type Department Care Team (Late st Contact Info) Description 11/13/2024 10:30 AM EDT Telemedicine [address] [address] 12/16/2024 11:30 AM EDT Office Visit [address] [address] Ginger Perez FNP [address] [place] [address] 01/19/2025 1:30 PM EDT Clinical Support [address] [address] Frida Knapp RN documented as of this encounter Visit Diagnoses Not on filedocumented in this encounter Additional Health Concerns Assessment Noted Time PHQ-9 Depression Total Score: 13 024 11:27 AM EDT documented as of this encounter Care Teams Nurse Care Manager Relationship Specialty Start Date End Date Ginger Perez FNP [address] [place] [address] PCP - General Family Medicine 08/13/22 documented as of this encounter
--- OUTSIDE RECORDS SUMMARY | 2024-11-05 16:29 | XMS_ITS | Encounter Summary ---
Author Organization [employer] Address 75 [facility] 7t [place] [address] Care Team Providers Care Garment Patternmaker Name Role Phone [facility] [facility] Primary Care Provider [phone] Encounter Details Date Type Department Care Team ([facility] st Contact Info) Description 02/21/[address] [facility] 230 [place], [place] [phone] [facility] [address] [place] [address] Social History Tobacco Use Types Packs/Day Years [...] - 02/25/2023 9:57 AM EDT T/C to [phone] for below message, No answer. LVM to call back on [phone]. As per last message , PCP referred pt. For Physical therapy evaluation. * Telephone Encounter - Mirta Vladimir - 02/21/2023 3:11 PM EDT Tc from [facility] requesting a script for Albuterol for nebulize machine. Firmware Software Verification Engineer check on med list but nothing. Also ramya requesting a referral for Occupational Therapy and Physical Therapy in home. To contact ramya at [phone] Perez documented in this encounter Plan of Treatment Upcoming Encounters Date Type Department Care Team (Late st Contact Info) Description 11/13/2024 10:30 AM EDT Telemedicine [address] [address] 12/16/2024 11:30 AM EDT Office Visit [address] [address] Ginger Perez FNP [address] [place] [address] 01/19/2025 1:30 PM EDT Clinical Support [address] [address] Frida Knapp, OZZY documented as of this encounter Visit Diagnoses Not on filedocumented in this encounter Additional Health Concerns Assessment Noted Time PHQ-9 Depression Total Score: 9 01/25/20 23 1:11 PM EDT documented as of this encounter Care Teams Garment Patternmaker Relationship Specialty Start Date End Date Ginger Perez FNP [address] [place] [address] PCP - General Family Medicine 08/13/22 documented as of this encounter
--- OUTSIDE RECORDS SUMMARY | 2024-11-05 16:29 | XMS_ITS | Encounter Summary ---
Author Organization [employer] Address 75 [facility] 7t [place] [address] Care Team Providers Care General Ii Farmworker Name Role Phone [facility] Primary Care Provider [phone] Reason for Visit * Reason Comments Med Refill Encounter Details Date Type Department Care Team ([facility] st Contact Info) Description 05/11/2024 Refill [facility] [address] [place], [place] [phone] Roma Man MD [address] [place] [address] Onychomycosis Social History Tobacco Use Types Packs/Day [...] Description 11/13/2024 10:30 AM EDT Telemedicine [address] [address] 12/16/2024 11:30 AM EDT Office Visit [address] [address] Ginger Perez [address] [address] 01/19/2025 1:30 PM EDT Clinical Support [address] [address] rFida Knapp RN documented as of this encounter Visit Diagnoses Diagnosis Onychomycosis Dermatophytosis of nail documented in this encounter Additional Health Concerns Assessment Noted Time PHQ-9 Depression Total Score: 13 024 11:27 AM EDT documented as of this encounter Care Teams General Ii Farmworker Relationship Specialty Start Date End Date Ginger Perez FNP [address] [place] [address] PCP - General Family Medicine 08/13/22 documented as of this encounter
--- OUTSIDE RECORDS SUMMARY | 2024-11-05 16:29 | XMS_ITS | Encounter Summary ---
Author Organization [employer] Address 75 [facility] 7[address] [place] [address] Care Team Providers Care Sanitarian Aide Name Role Phone [facility] Primary Care Provider [phone] Reason for Visit * Reason Onset Date Comments Durable Medical Equipment 10/01/2024 DME: D isposable Underpad Encounter Details Date Type Department Care Team (Late st Contact Info) Description 10/01/2024 Telephone [facility] 230 [place] [address] [facility] 230 [place] [address] Durable Medical Equipment (DME: Disposable Underpad) Social [...] the past 12 months, has t he [employer], gas, oil or water [email or web address] threatened to shut off services in your [...] please advise them to contact Alyse at [phone]. * Telephone Encounter - Ledy Victor - [...] back to clarify. Please contact pt at [phone]. documented in this encounter Plan of Treatment Upcoming Encounters Date Type Department Care Team (Late st Contact Info) Description 11/13/2024 10:30 AM EDT Telemedicine [address] [address] 12/16/2024 11:30 AM EDT Office Visit [address] [address] Ginger Perez FNP [address] [place] [address] 01/19/2025 1:30 PM EDT Clinical Support [address] [address] Frida Knapp RN documented as of this encounter Visit Diagnoses Not on filedocumented in this encounter Additional Health Concerns Assessment Noted Time PHQ-9 Depression Total Score: 13 024 11:27 AM EDT documented as of this encounter Care Teams Sanitarian Aide Relationship Specialty Start Date End Date Ginger Perez FNP [address] [place] [address] PCP - General Family Medicine 08/13/22 documented as of this encounter
== END 2024-11-05 14:30 | disposition home or self-care (01) ==
PROVIDERS: PCP Registered Nurse; Visit Provider Nurse Practitioner Adult Health
DX: E11.9 Type 2 diabetes mellitus without complications (principal); Z79.4 Long term (current) use of insulin; K76.0 Fatty (change of) liver, not elsewhere classified; E05.90 Thyrotoxicosis, unspecified without thyrotoxic crisis or storm; N20.0 Calculus of kidney
CPT/HCPCS: 95251; 99214

== ENCOUNTER → 2024-11-05 13:31 | Outpatient (BNVA) | payer MEDICAID, SELFPAY | PROVIDERS: PCP Registered Nurse; Visit Provider Nurse Practitioner Adult Health | DX: E11.9 Type 2 diabetes mellitus without complications (principal); K76.0 Fatty (change of) liver, not elsewhere classified; E05.90 Thyrotoxicosis, unspecified without thyrotoxic crisis or storm; Z79.4 Long term (current) use of insulin; Z79.84 Long term (current) use of oral hypoglycemic drugs | CPT/HCPCS: 82947; 83036; 99212 ==

== ENCOUNTER 2024-11-11 12:07 | Outpatient (AMB) | payer MEDICAID, SELFPAY ==
--- NOTE | 2024-11-11 12:31 | MHC.AMNUTRGE ---
VS Expanded 11/11/24 12:40 11/11/24 13:04 Height 5 ft 2 in 5 ft 2 in Weight 196 lb 13.965 oz 196 lb BMI 36.0 35.8 Intake Visit Reasons: Type 2 diabetes mellitus without complications Allergies mushroom Allergy (Verified 11/05/24 13:41) Anaphylaxis Nutrition Presentation Details: Pt presents for MNT for T2DM Pt referred by GERALD Tellez Wt record at endo office: Wt at 263 lbs 12/2023 (started ), 222lbs in 05/2024 and today at 196 lbs (11/11/24). Noted that Pt's weight was at 197 lbs in 10/2024 (stable for the past month per wt record) Pt reports having a INTERIOR DESIGN ASSISTANT who helps with meal preparation Reports liking soups the majority of the time, wears dentures Reports eating fruits the majority of the time Pt derailing the nutrition topic discussion 10 am Pt reports having a protein shake with coffee added (not sure of the name of the protein shake) 2pm soup chicken with veggies/potato/noodles , water Uses air fryer for everything food frequency fruits : 1-3 /day (blenderized with variety of vegetables ) dairy-not including , reports GI side effects with reg milk, not liking alternative/ likes cottage cheese Pt reports is unable to read or write diarrhea/constipations: denies etoh/smoking--denies BS Monitoring Most Recent Diabetes Results: Cholesterol 146 mg/dL (<200) 09/14/24 HDL Cholesterol 39 mg/dL (>40) L 09/14/24 Triglycerides 123 mg/dL (<150) 09/14/24 DCQ-Zervmnf-Vz.Jeor Equation Height: 5 ft 2 in Weight: 196 lb Resting Metabolic Rate: 1411.28 Calculated Activity Level: Sedentary Calories Needed to Maintain Weight: 1693.54 [facility] Medical History (Updated 11/05/24 @ 14:27 by Cheryl An NP) Fatty liver Subclinical hyperthyroidism Seizures Vitamin D deficiency Chronic pain syndrome Spondylosis 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 myelopathy Disc degeneration, lumbar Hip osteoarthritis Sacroiliitis Illiterate Morbid obesity due to excess calories Diabetes mellitus type 2, controlled, without complications Essential hypertension Hyperlipidemia LDL goal <100 Panic attacks VELASQUEZ on CPAP History of tremor Gender dysphoria Anxiety Depression Asthma Epilepsy Hypertension Surgical History History of esophagogastroduodenoscopy (EGD) Hx of laparoscopic gastric banding Family History Father CVD (cardiovascular disease) Mother Hypertension Social History Household Members: Children and None Household Members Other:: 2 dogs Are you a primary foster care social worker to a significant other at home: No Do you presently have visiting nurse or other home services: Yes Alcohol intake: former Patient Tobacco Use Status: Former Tobacco user Substance Use Type: Marijuana Assessment & Plan Assessment & Plan (1) Diabetes mellitus type 2, controlled, without complications: Comment: IDDM Code(s): E11.9 - Type 2 diabetes mellitus without complications Category: Medical Qualifiers: Diabetes mellitus keno terminal operator insulin use: with retirement use Qualified Code(s): E11.9 - Type 2 diabetes mellitus without complications; Z79.4 - half-way (current) use of insulin Plan: Wt: 89 Kg ( 11/24 ) Est kcal needs as per MSJ: 1700 (40% carb, 30% protein/fat) Est fluid needs as per 25-30 ml/d: [address] Est prot per day as per 1 g/kg bw: 90 Recommend fiber intake : 8-10 g per day and gradually increase to 25-28 g per day for women and 35-38 g for men or as tolerated Recommend sodium intake per day : less than 1500 mg less than 2000 mg Educated patient on: ( R = reviewed V = verbalizes understanding N/R = needs review N/A = not applicable Food sources of carbohydrate, adequate serving sizes and its role in various health conditions: R V N/R Differences between complex carbohydrates a simple carbohydrates, role of fiber in diet: R V N/R Lean protein sources of foods: R V NR Differences between types of fats and role in diet (mono on saturated fat fatty acids, saturated fatty acids, trans fats): R V N/R Food sources of sodium in salt and healthy modifications for heart health in kidney health: R V R/V Vitamins and minerals: R V N/R Healthy plate method concept: R including protein foods (meal plan with pictures of protein foods provided and discussed Physical activity: Benefits a precaution: R V N/R Hypoglycemia protocol (rule of 15): R V N/R Dietary prevention of Hyperglycemia: R Patient Instructions: HAve 3-4 small meals per day , including lean protein food in each meal , Eat protein first if feeling full too fast, keep hydrated by having water, broth in between meals share information wth INTERIOR DESIGN ASSISTANT and call for questions Add chicken or eggs to the soup, have fruit with lactose free cottage cheese as snack in between meals Coding Level of Care Code Nutr Indiv Intake (37770) Diagnoses Controlled type 2 diabetes mellitus without complication, with long-term current use of insulin E11.9; Z79.4 Diabetes mellitus retirement insulin use: with keno terminal operator use Time Spent (min) 30
[2024-11-11 12:40] VITALS: BMI 36.0
[2024-11-11 13:04] VITALS: BMI 35.8
--- OUTSIDE RECORDS SUMMARY | 2024-11-11 14:09 | XMS_ITS | Encounter Summary ---
Author Organization [employer] Address 75 [facility] 7t [place] [address] Care Team Providers Care Dough Molder Name Role Phone [facility] Primary Care Provider [phone] Encounter Details Date Type Department Care Team ([facility] st Contact Info) Description 12/20/2022 Telephone [facility] [address] [place], [place] [phone] [facility] 230 [place], [place] [phone] Social History Tobacco Use Types Packs/Day Years [...] sign by PCP on oct [facility] [phone] documented in this encounter Plan of Treatment Upcoming Encounters Date Type Department Care Team (Late st Contact Info) Description 11/13/2024 10:30 AM EDT Telemedicine [address] [address] 12/16/2024 11:30 AM EDT Office Visit [address] [address] Ginger Perez [address] [address] 01/19/2025 1:30 PM EDT Clinical Support [address] [address] Frida Knapp RN documented as of this encounter Visit Diagnoses Not on filedocumented in this encounter Additional Health Concerns Assessment Noted Time PHQ-9 Depression Total Score: 0 12/12/19 23 3:58 PM EDT documented as of this encounter Care Teams Dough Molder Relationship Specialty Start Date End Date Ginger Perez FNP [address] [place] [address] PCP - General Family Medicine 08/13/22 documented as of this encounter
--- OUTSIDE RECORDS SUMMARY | 2024-11-11 14:09 | XMS_ITS | Encounter Summary ---
Author Organization [employer] Address 75 [facility] 7t [place] [address] Care Team Providers Care Wallpaperer Helper Name Role Phone [facility] Primary Care Provider [phone] Reason for Visit * Reason Comments Med Refill Encounter Details Date Type Department Care Team ([facility] st Contact Info) Description 11/22/2023 Refill [facility] 230 [place], [place] [phone] [facility] 230 [place], [place] [phone] Type 2 diabetes mellitus with hyperglycemia, with long-term current use of insulin ([facility]) Social History Tobacco Use Types Packs/Day Years [...] the past 12 months, has t he [employer], gas, oil or water company threatened to [...] Description 11/13/2024 10:30 AM EDT Telemedicine [address] [address] 12/16/2024 11:30 AM EDT Office Visit [address] [address] AnaGinger canales [address] [address] 01/19/2025 1:30 PM EDT Clinical Support [address] [address] Frida Knapp RN documented as of this encounter Visit Diagnoses Diagnosis Type 2 diabetes mellitus with hyperglycemia, with long-term current use of insulin ([facility]) documented in this encounter Additional Health Concerns Assessment Noted Time PHQ-9 Depression Total Score: 0 11/13/19 24 3:08 PM EDT documented as of this encounter Care Teams Wallpaperer Helper Relationship Specialty Start Date End Date [place] can[place] [facility] [address] [place] [address] PCP - General Family Medicine 08/13/22 documented as of this encounter
--- OUTSIDE RECORDS SUMMARY | 2024-11-11 14:09 | XMS_ITS | Encounter Summary ---
Author Organization [employer] Address [address] [facility] 7t [place] [address] Care Team Providers Care Embossing Clerk Name Role Phone [facility] Primary Care Provider [phone] Reason for Visit * Reason Onset Date Comments Clonazepam count 10/30/2024 Encounter Details Date Type Department Care Team ([facility] st Contact Info) Description 10/30/[address] [facility] [address] [place], [place] [phone] Frida Knapp, OZZY Clonazepam count Social History [...] daytime nurse today about and call this field underwriter back with the information. documented in this encounter Plan of Treatment Upcoming Encounters Date Type Department Care Team (Late st Contact Info) Description 11/13/2024 10:[address] [facility] [address] [place] [address] 12/16/2024 11:30 AM EDT Office Visit [facility] [address] [place] [address] [facility], [address] [address] 01/19/2025 1:30 PM EDT Clinical Support [facility] [address] [place] [address] Frida Knapp RN documented as of this encounter Visit Diagnoses Not on filedocumented in this encounter Additional Health Concerns Assessment Noted Time PHQ-9 Depression Total Score: 13 024 11:27 AM EDT documented as of this encounter Care Teams Embossing Clerk Relationship Specialty Start Date End Date [place] FNP [address] [place] [address] PCP - General Family Medicine 08/13/22 documented as of this encounter
--- OUTSIDE RECORDS SUMMARY | 2024-11-11 14:09 | XMS_ITS | Encounter Summary ---
Demographics Address [address] [facility] [address] [place] [address] Mobile Phone Work Phone Home Phone Preferred Language en Marital Status Single Holiness Affiliation Unknown Race Other Race Ethnic Group or Author Organization [employer] Address [address] [facility] 7t [place] [address] Care Team Providers Care Control Valve Mechanic Name Role Phone [facility] Primary Care Provider [phone] Encounter Details Date Type Department Care Team [...] Info) Description 11/13/2024 10:30 AM EDT Telemedicine [address] [address] 12/16/2024 11:30 AM EDT Office Visit [address] [address] Ginger Perez FNP [address] [place] [address] 01/19/2025 1:30 PM EDT Clinical Support [address] [address] Frida Knapp, OZZY documented as of this encounter Visit Diagnoses Not on filedocumented in this encounter Additional Health Concerns Assessment Noted Time PHQ-9 Depression Total Score: 13 024 11:27 AM EDT documented as of this encounter Care Teams Control Valve Mechanic Relationship Specialty Start Date End Date Ginger Perez FNP [address] [place] [address] PCP - General Family Medicine 08/13/22 documented as of this encounter
--- OUTSIDE RECORDS SUMMARY | 2024-11-11 14:09 | XMS_ITS | Encounter Summary ---
Author Organization [employer] Address [address] [facility] 7[address] [place] [address] Care Team Providers Care Aviation All Source Intelligence Name Role Phone [facility] Primary Care Provider Reason for Visit * Reason Onset Date Comments Nurse Triage 10/07/2023 Encounter Details Date Type Department Care Team ([facility] st Contact Info) Description 10/07/2023 Telephone [facility] 230 [place], [place] [phone] [facility] 230 [place], [place] [phone] Nurse Triage Social History Tobacco Use Types [...] 10/07/2023 3:17 PM EST TC [place] [facility], Ct scan rescheduled to 10/10/23 at [...] still having kidney pain . Patient speaks Telugu. Advised triage nurse will call patient back. documented in this encounter Plan of Treatment Upcoming Encounters Date Type Department Care Team (Late st Contact Info) Description 11/13/2024 10:30 AM EDT Telemedicine [address] [address] 12/16/2024 11:30 AM EDT Office Visit [address] [address] [place] Ginger, [address] [address] 01/19/2025 1:30 PM EDT Clinical Support [address] [address] Frida Knapp RN documented as of this encounter Visit Diagnoses Not on filedocumented in this encounter Additional Health Concerns Assessment Noted Time PHQ-9 Depression Total Score: 0 10/03/19 24 10:12 AM EST documented as of this encounter Care Teams Aviation All Source Intelligence Relationship Specialty Start Date End Date [place] Park[place]ingerGERALD [address] [place] [address] PCP - General Family Medicine 08/13/22 documented as of this encounter
--- OUTSIDE RECORDS SUMMARY | 2024-11-11 14:09 | XMS_ITS | Encounter Summary ---
Author Organization [employer] Address [address] [facility] 7[address] [place] [address] Care Team Providers Care Fish And Wildlife Biologist Name Role Phone [facility] Primary Care Provider [phone] Reason for Visit * Reason Onset Date Comments Lab Orders 11/10/2024 Encounter Details Date Type Department Care Team ([facility] st Contact Info) Description 11/10/2024 Telephone [facility] 230 [place], [place] [phone] [facility] 230 [place], [place] [phone] Lab Orders Social History Tobacco Use Types Packs/Day Years [...] encounter Miscellaneous Notes * Telephone Encounter - Freya Traylor RN - 11/10/2024 9:50 AM EDT Telephone call to the pt regarding the previous message from the pt's PCP : Endocrinology reachedout to me they were concerned about Chico's weight loss. He is scheduled to see me in December but I am going to order some blood work to be done beforehand. I also am trying to find the results of his colonoscopy. I know that he was scheduled to have one in 2023 it is unclear if it was ever done. Can you check Loll[employer]uff? Pt states he has an upcoming appt with his diabetes doctor next week . Pt was reminded of his upcoming televisit with the pharmacist on 11/13/24 , and his upcoming PCP appt on 12/16/24 . Pt states he will go to the lab tomorrow to have his labs drawn . Pt states they feel they had the Colonoscopy at [facility] . Will check both systems for the results . There are no results in the [facility] system for the pt's colonoscopy . Pt does not have a colonoscopy result in the [facility] system either . Pt is concerned as they stated they received a letter from the sleep apnea machine [employer] stating that the insurance will no longer cover the machine . Pt states they are unable to sleep well without the machine . Pt agrees to bring in a copy of the letter for the PCP to review . Will forwardthis message to Pt's PCP for review . documented in this encounter Plan of Treatment Upcoming Encounters Date Type Department Care Team (Late st Contact Info) Description 11/13/2024 10:30 AM EDT Telemedicine [address] [address] 12/16/2024 11:30 AM EDT Office Visit [address] [address] Ginger Perez FNP [address] [place] [address] 01/19/2025 1:30 PM EDT Clinical Support [address] [address] Frida Knapp, OZZY documented as of this encounter Visit Diagnoses Not on filedocumented in this encounter Additional Health Concerns Assessment Noted Time PHQ-9 Depression Total Score: 13 024 11:27 AM EDT documented as of this encounter Care Teams Fish And Wildlife Biologist Relationship Specialty Start Date End Date Ginger Perez FNP [address] [place] [address] PCP - General Family Medicine 08/13/22 documented as of this encounter
--- OUTSIDE RECORDS SUMMARY | 2024-11-11 14:09 | XMS_ITS | Encounter Summary ---
Author Organization [employer] Address [address] [facility] 7t [place] [address] Care Team Providers Care Dedicated Owner Operator Name Role Phone [place] [facility] Primary Care Provider [phone] Reason for Visit * Reason Onset Date Comments [facility] 10/20/2024 Encounter Details Date Type Department Care Team ([facility] st Contact Info) Description 10/20/2024 Telephone [facility] 230 [place], [place] [phone] Frida Knapp RN [facility] [...] Info) Description 11/13/2024 10:30 AM EDT Telemedicine [address] [address] 12/16/2024 11:30 AM EDT Office Visit [address] [address] [facility] 230 [place] [address] 01/19/2025 1:30 PM EDT Clinical Support [address] [address] Frida Knapp, RN documented as of this encounter Visit Diagnoses Not on filedocumented in this encounter Additional Health Concerns Assessment Noted Time PHQ-9 Depression Total Score: 13 024 11:27 AM EDT documented as of this encounter Care Teams Dedicated Owner Operator Relationship Specialty Start Date End Date Ginger PerezGERALD [address] [place] [address] PCP - General Family Medicine 08/13/22 documented as of this encounter
--- OUTSIDE RECORDS SUMMARY | 2024-11-11 14:09 | XMS_ITS | Encounter Summary ---
Author Organization [employer] Address [address] [facility] 7t [place] [address] Care Team Providers Care Software Tools Engineer Name Role Phone [place] [facility] Primary Care Provider Encounter Details Date Type Department Care Team (Late st Contact Info) Description 11/09/2024 Orders Only [facility] 230 [place], [place] [phone] [place] [facility] 230 [place], [place] [phone] Weight loss (Primary Dx) Social History Tobacco Use Types [...] Info) Description 11/13/2024 10:30 AM EDT Telemedicine [address] [address] 12/16/2024 11:30 AM EDT Office Visit [address] [address] [place] [address] [address] 01/19/2025 1:30 PM EDT Clinical Support [address] [address] Frida Knapp, OZZY Scheduled Orders Name Type Priority Associated Diagnoses Orde r Schedule CBC auto differential Lab Routine Weight loss Expected: 11/09/2024 (Approximate), Expires: 11/09/2025 Comprehensive Metabolic Panel Lab Routine Weight loss Expected: 11/09/2024 (Approximate), Expires: 11/09/2025 Sed Rate by Modified [place] Lab Routine Weight loss Expected: 11/09/2024, Expires: 11/09/2025 C-reactive Protein Lab Routine Weight loss Expected: 11/09/2024 (Approximate), Expires: 11/09/2025 TSH W/Reflex to FT4 Lab Routine Weight loss Expected: 11/09/2024 (Approximate), Expires: 11/09/2025 documented as of this encounter Visit Diagnoses Diagnosis Weight loss- Primary Loss of weight documented in this encounter Additional Health Concerns Assessment Noted Time PHQ-9 Depression Total Score: 13 024 11:27 AM EDT documented as of this encounter Care Teams Software Tools Engineer Relationship Specialty Start Date End Date Ginger Perez FNP [address] [place] [address] PCP - General Family Medicine 08/13/22 documented as of this encounter
--- OUTSIDE RECORDS SUMMARY | 2024-11-11 14:09 | XMS_ITS | Encounter Summary ---
Author Organization [employer] Address [address] [facility] 7t [place] [address] Care Team Providers Care Director Fraud Name Role Phone [facility] Primary Care Provider [phone] Reason for Visit * Reason Onset Date Comments Med Refill 10/29/2024 Encounter Details Date Type Department Care Team (Late st Contact Info) Description 10/29/[address] [facility] 230 [place], [place] [phone] Frida Knapp RN Low back pain at [...] - 10/29/2024 2:07 PM EST Pt had STATION DETECTIVE Initial appt today GIA score of 13. Opioid Risk score of 14. UTOX was Neg BZO, sent out for confirmation. documented in this encounter Plan of Treatment Upcoming Encounters Date Type Department Care Team (Late st Contact Info) Description 11/13/2024 10:[address] [facility] [address] [place] [address] 12/16/2024 11:30 AM EDT Office Visit [facility] [address] [place] [address] [place], [address] [address] 01/19/2025 1:30 PM EDT Clinical Support [facility] [address] [place] [address] Frida Knapp, OZZY documented as of this encounter Visit Diagnoses Diagnosis Low back pain at multiple sites- Primary documented in this encounter Additional Health Concerns Assessment Noted Time PHQ-9 Depression Total Score: 13 024 11:27 AM EDT documented as of this encounter Care Teams Director Fraud Relationship Specialty Start Date End Date Ginger Perez FNP [address] [place] [address] PCP - General Family Medicine 08/13/22 documented as of this encounter
--- OUTSIDE RECORDS SUMMARY | 2024-11-11 14:09 | XMS_ITS | Encounter Summary ---
Author Organization [employer] Address [address] [facility] 7t [place] [address] Care Team Providers Care Carry All Driver Name Role Phone [facility] Primary Care Provider [phone] Reason for Visit * Reason Onset Date Comments Nurse Triage 08/18/2024 Encounter Details Date Type Department Care Team ([facility] st Contact Info) Description 08/18/2024 Telephone [facility] 230 [place], [place] [phone] [facility] 230 [place], [place] [phone] Nurse Triage Social History Tobacco Use Types [...] AM EST Tc from pt returning call [phone] * Telephone Encounter - Francie Au RN - 08/18/2024 11:47 AM EST Triage call Pt reports abnormal vaginal bleeding which has been occurring for last several months. Pt reports spotting started yesterday and usually this is gone in a day. This time it is the second day of this spotting and drainage is black in color. Pt denies any other symptoms. Pt reports GEAR MACHINE OPERATOR advised to call to see provider. [...] Info) Description 11/13/2024 10:30 AM EDT Telemedicine [facility] [address] [place] [address] 12/16/2024 11:30 AM EDT Office Visit [facility] [address] [place] [address] Ginger Perez FNP 230 [place] [address] 01/19/2025 1:30 PM EDT Clinical Support [facility] 230 [place] [address] Frida Knapp, OZZY documented as of this encounter Visit Diagnoses Not on filedocumented in this encounter Additional Health Concerns Assessment Noted Time PHQ-9 Depression Total Score: 13 024 11:27 AM EDT documented as of this encounter Care Teams Carry All Driver Relationship Specialty Start Date End Date Ginger Perez FNP 230 [place] [address] PCP - General Family Medicine 08/13/22 documented as of this encounter
--- OUTSIDE RECORDS SUMMARY | 2024-11-11 14:09 | XMS_ITS | Encounter Summary ---
Author Organization [employer] Address [address] [facility] 7t [place] [address] Care Team Providers Care Hard Candy Spinner Name Role Phone [place] [facility] Primary Care Provider [phone] Reason for Visit * Reason Onset Date Comments Recommend FITTER MECHANIC Tier 2 10/29/2024 Encounter Details Date Type Department Care Team ([facility] st Contact Info) Description 10/29/2024 Telephone [facility] 230 [place], [place] [phone] Frida Knapp, OZZY Recommend FITTER MECHANIC Tier 2 Social History Tobacco Use Types [...] RN - 10/29/2024 7:39 AM EST What FITTER MECHANIC Tier would you like this patient to be? I recommend Tier 2, please let me know if you agree or would rather patient be in another FITTER MECHANIC Tier. Tier 1 = HIGH RISK, Monthly FITTER MECHANIC visits Tier 2 = MODerate RISK, Q3 [...] Info) Description 11/13/2024 10:30 AM EDT Telemedicine [facility] [address] [place] [phone] 12/16/2024 11:30 AM EDT Office Visit [facility] 230 [place] [address] [place], [place], [facility] 230 [place] [address] 01/19/2025 1:30 PM EDT Clinical Support [facility] 230 [place] [address] Frida Knapp RN documented as of this encounter Visit Diagnoses Not on filedocumented in this encounter Additional Health Concerns Assessment Noted Time PHQ-9 Depression Total Score: 13 024 11:27 AM EDT documented as of this encounter Care Teams Hard Candy Spinner Relationship Specialty Start Date End Date Ginger Perez FNP 230 [place] [address] PCP - General Family Medicine 08/13/22 documented as of this encounter
--- OUTSIDE RECORDS SUMMARY | 2024-11-11 14:09 | XMS_ITS | Encounter Summary ---
Author Organization [employer] Address [address] [facility] 7t [place] [address] Care Team Providers Care Intervention Analyst Name Role Phone [facility] Primary Care Provider [phone] Encounter Details Date Type Department Care Team (Late st Contact Info) Description 08/22/2022 Refill [facility] 230 [place], [place] [phone] [facility] 230 [place], [place] [phone] Muscle spasm Social History Tobacco Use Types [...] 11/13/2024 10:30 AM EDT Telemedicine [facility] 230 [place], [place] [phone] 12/16/2024 11:30 AM EDT Office Visit [facility] [place] [address] Ginger Perez FNP 230 [place] [address] 01/19/2025 1:30 PM EDT Clinical Support [facility] [place] [address] Frida Knapp RN documented as of this encounter Visit Diagnoses Diagnosis Muscle spasm Spasm of muscle documented in this encounter Additional Health Concerns Assessment Noted Time PHQ-9 Depression Total Score: 9 08/21/20 10:14 AM EST documented as of this encounter Care Teams Intervention Analyst Relationship Specialty Start Date End Date [place]inger [place] [address] PCP - General Family Medicine 08/13/22 documented as of this encounter
--- OUTSIDE RECORDS SUMMARY | 2024-11-11 14:09 | XMS_ITS | Encounter Summary ---
Author Organization [employer] Address [address] [facility] 7t [place] [address] Care Team Providers Care Psychiatric Orderly Name Role Phone [facility] Primary Care Provider [phone] Encounter Details Date Type Department Care Team ([facility] st Contact Info) Description 10/23/2024 Telephone [facility] 230 [place], [place] [phone] [facility] 230 [place], [place] [phone] Social History Tobacco Use Types Packs/Day Years [...] for patient to contact Trudi Victor at [phone]. documented in this encounter Plan of Treatment Upcoming Encounters Date Type Department Care Team ([facility] st Contact Info) Description 11/13/2024 10:30 AM EDT Telemedicine [facility] MEDICINE [address] [place] [address] 12/16/2024 11:30 AM EDT Office Visit [facility] [address] [place] [address] Ginger Perez FNP 230 [place] [address] 01/19/2025 1:30 PM EDT Clinical Support [facility]INE [address] [place] [address] Frida Knapp RN documented as of this encounter Visit Diagnoses Not on filedocumented in this encounter Additional Health Concerns Assessment Noted Time PHQ-9 Depression Total Score: 13 024 11:27 AM EDT documented as of this encounter Care Teams Psychiatric Orderly Relationship Specialty Start Date End Date Ginger Perez FNP [address] [place] [address] PCP - General Family Medicine 08/13/22 documented as of this encounter
--- OUTSIDE RECORDS SUMMARY | 2024-11-11 14:09 | XMS_ITS | Encounter Summary ---
Author Organization [employer] Address [address] [facility] 7t [place] [address] Care Team Providers Care Day Care Home Provider Name Role Phone [place] [facility] Primary Care Provider [phone] Reason for Visit * Reason Onset Date Comments Error (VOID this visit) 11/02/2024 Encounter Details Date Type Department Care Team ([facility] st Contact Info) Description 11/02/2024 Telephone [facility] 230 [place], [place] [phone] Frida Knapp RN Error (VOID this visit) [...] Description 11/13/2024 10:30 AM EDT Telemedicine [address] [address] 12/16/2024 11:30 AM EDT Office Visit [address] [address] Ginger Perez FNP [address] [place] [address] 01/19/2025 1:30 PM EDT Clinical Support [address] [address] Frida Knapp RN documented as of this encounter Visit Diagnoses Not on filedocumented in this encounter Additional Health Concerns Assessment Noted Time PHQ-9 Depression Total Score: 13 024 11:27 AM EDT documented as of this encounter Care Teams Day Care Home Provider Relationship Specialty Start Date End Date Ginger Perez FNP [address] [place] [address] PCP - General Family Medicine 08/13/22 documented as of this encounter
--- OUTSIDE RECORDS SUMMARY | 2024-11-11 14:09 | XMS_ITS | Encounter Summary ---
Author Organization [employer] Address [address] [facility] 7t [place] [address] Care Team Providers Care Wire Drawing Setter Name Role Phone [facility] Primary Care Provider [phone] Reason for Visit * Reason Onset Date Comments Durable Medical Equipment 12/18/2022 Encounter Details Date Type Department Care Team ([facility] st Contact Info) Description 12/18/2022 Telephone [facility] 230 [place], [place] [phone] [facility] 230 [place] [address] Durable Medical Equipment Social History Tobacco Use [...] 2:22 PM EDT Tc from sarah from [facility] requesting a new nebulizer machine . States pt informed old one stopped working . documented in this encounter Plan of Treatment Upcoming Encounters Date Type Department Care Team (Late st Contact Info) Description 11/13/2024 10:30 AM EDT Telemedicine [address] [address] 12/16/2024 11:30 AM EDT Office Visit [address] [address] Ginger Perez FNP [address] [place] [address] 01/19/2025 1:30 PM EDT Clinical Support [address] [address] Frida Knapp, OZZY documented as of this encounter Visit Diagnoses Not on filedocumented in this encounter Additional Health Concerns Assessment Noted Time PHQ-9 Depression Total Score: 0 12/12/19 23 3:58 PM EDT documented as of this encounter Care Teams Wire Drawing Setter Relationship Specialty Start Date End Date Ginger Perez FNP [address] [place] [address] PCP - General Family Medicine 08/13/22 documented as of this encounter
--- OUTSIDE RECORDS SUMMARY | 2024-11-11 14:09 | XMS_ITS | Encounter Summary ---
Demographics Address [address] [facility] [address] [place] [address] Mobile Phone Work Phone Home Phone Preferred Language en Marital Status Single Religion Affiliation Unknown Race Other Race Ethnic Group or Author Organization [employer] Address [address] [facility] 7t [place] [address] Care Team Providers Care Journeyman Painter Name Role Phone [facility] Primary Care Provider [phone] Encounter Details Date Type Department Care Team [...] Info) Description 11/13/2024 10:30 AM EDT Telemedicine [address] [address] 12/16/2024 11:30 AM EDT Office Visit [address] [address] 01/19/2025 1:30 PM EDT Clinical Support [address] [address] Frida Knapp RN documented as of this encounter Procedures Procedure Name Priority Date/Time Associated Diagnosis Comments GLUCOSE, WHOLE BLOOD Routine 11/05/2024 2:23 PM EST GLUCOSE, WHOLE BLOOD Routine 11/05/2024 1:54 PM EST documented in this encounter Results * Glucose, Whole Blood (11/05/2024 2:23 PM EST) Glucose, Whole Blood 87 60 - 115 mg/dL [facility] Comment:METER #: [id number] 5Testing performed in the Endocrinology Department [address] , [address], [facility]. 11/05/2024 2:23 PM EST 11/05/2024 2:30 PM EST us Generic External Data Provider LAB BLOOD ORDERAB LES Final Result Performing Organization Address City/[facility]/ZIP Co de Phone Number [facility] [address] [place] [address] [phone] * Glucose, Whole Blood (11/05/2024 1:54 PM EST) Glucose, Whole Blood 77 60 - 115 mg/dL [facility] Comment:METER #: [id number] 5Testing performed in the Endocrinology Department [address] , [address], [facility]. 11/05/2024 1:54 PM EST 11/05/2024 2:00 PM EST us Generic External Data Provider LAB BLOOD ORDERAB LES Final Result Performing Organization Address [facility] Co de Phone Number [facility] [address] [place] [phone] documented in this encounter Visit Diagnoses Not on filedocumented in this encounter Additional Health Concerns Assessment Noted Time PHQ-9 Depression Total Score: 13 03/16/ 024 11:27 AM EDT documented as of this encounter Care Teams Journeyman Painter Relationship Specialty Start Date End Date Ginger Perez FNP [address] [place] [address] PCP - General Family Medicine 08/13/22 documented as of this encounter
--- OUTSIDE RECORDS SUMMARY | 2024-11-11 14:09 | XMS_ITS | Encounter Summary ---
Author Organization [employer] Address [address] [facility] 7[address] [place] [address] Care Team Providers Care Supervisor [employer] Elements Name Role Phone [facility] Primary Care Provider [phone] Reason for Visit * Reason Onset Date Comments Durable Medical Equipment 12/18/2022 Encounter Details Date Type Department Care Team ([facility] st Contact Info) Description 12/18/2022 Telephone [facility] MEDICINE [address] [place], [place] [phone] [facility] 230 [place] [address] Durable Medical Equipment Social History Tobacco Use [...] the largest size for disposable bed pads. Pipeline Maintenance Supervisor suggested a script for reusable bed pads [...] Info) Description 11/13/2024 10:30 AM EDT Telemedicine [address] [address] 12/16/2024 11:30 AM EDT Office Visit [address] [address] [address]inger [address] [address] 01/19/2025 1:30 PM EDT Clinical Support [address] [address] Frida Knapp, RN documented as of this encounter Visit Diagnoses Not on filedocumented in this encounter Additional Health Concerns Assessment Noted Time PHQ-9 Depression Total Score: 0 12/12/19 23 3:58 PM EDT documented as of this encounter Care Teams Supervisor [employer] Relationship Specialty Start Date End Date Ginger Perez FNP [address] [place] [address] PCP - General Family Medicine 08/13/22 documented as of this encounter
--- OUTSIDE RECORDS SUMMARY | 2024-11-11 14:10 | XMS_ITS | Encounter Summary ---
Author Organization [employer] Address [address] [facility] 7t [place] [address] Care Team Providers Care Maintenance Craftsman Name Role Phone [facility] Primary Care Provider [phone] Reason for Visit * Reason Comments ALLIED HEALTH TEACHER Initial ALLIED HEALTH TEACHER Initial Encounter Details Date Type Department Care Team (Latest Contact Info) Description 10/29/2024 1:30 PM EST Clinical Support [facility] MEDICINE 230 [place], [place] [phone] Frida Knapp RN Mixed anxiety and depressive [...] PM EST S: Pt here for initial ALLIED HEALTH TEACHER Visit, accompanied by his SWITCH COUPLER Roma. Prescribed Clonazepam 1mg Q8hr. Patients medications [...] and speaks with a therapist regularly. O: ALLIED HEALTH TEACHER Tier 2. Pt currently prescribed Clonazepam 1mg Q8hr. TILE MOLDER HAND verified today. Rx last filled on 10/15/24. [...] administered and when it's used. Pt and SWITCH COUPLER stated they understood. Will send request to PCP for Narcan RX and update on UTOX results. Last PCP visit was 09/14/24, scheduled next 12/16/24. A: ALLIED HEALTH TEACHER Contract Initiation Visit, Chronic BZO use r/t anxiety. P: ALLIED HEALTH TEACHER contract reviewed and signed, pt provided copy. Pt to continue taking medication only as prescribed; Next ALLIED HEALTH TEACHER RV appointment scheduled for 01/19/25 @ 1:30p, [...] Info) Description 11/13/2024 10:30 AM EDT Telemedicine [address] [address] 12/16/2024 11:30 AM EDT Office Visit [address] [address] Ginger Perez FNP [address] [place] [address] 01/19/2025 1:30 PM EDT Clinical Support [address] [address] Aria, Frida, RN documented as of this [...] - 10/29/2024 2:03 PM EST UTOX cup Lot#[id number] Exp. 04/21/26 Internal Pass Control [facility] POINT OF CARE TEST ENTER/EDIT ORDERABLES Final Result * Drug Monitoring, Benzodiazepines, Quantitative, Urine (10/29/2024 1:45 PM EST) Nordiazepam, GCMS Urine NEGATIVE [facility] Oxazepam, GCMS Urine NEGATIVE [facility] Lorazepam GCMS Urine NEGATIVE [facility] Alprazolam, GCMS Urine NEGATIVE [facility] Alphahydroxytriazolam , GCMS Ur NEGATIVE [facility] Temazepam, GCMS Urine NEGATIVE [facility] Alphahydroxymidazolam ,GCMS Ur NEGATIVE [facility] Aminoclonazepam, GCMS Urine 829 [facility] Comment:REFERENCE RANGE: <25 ng/mL Flurazepam Metabolite,GCMS Ur NEGATIVE [facility] Benzodiazepines Comments SEE NOTE [facility] Comment:This drug testing is for medical treatment only. Analysiswas performed as non-forensic testing and these resultsshould be used only by healthcare providers to renderdiagnosis or treatment, or to monitor progress of medicalconditions.Benzodiazepines Notes:Aminoclonazepam detected is consistent with the use of thedrug Clonazepam.LDT Notes:Confirmation tests were developed and their analyticalperformance characteristics have been determined by [employer]. It has not been cleared or approved by the FDA.This assay has been validated pursuant to the CLIAregulations and is used for clinical purposes.Healthcare Providers needing Interpretation assistance,please contact us at [phone] ( ) M-F,8am to 10pm ESTTHIS TEST PERFORMED AT:[facility] [place] [phone] DIRECTOR: LIEN HARO MD Urine (Urine, Random) 10/29/2024 1:45 PM EST 10/29/2024 6:14 PM EST [facility] LAB URINE ORDERABLES Final Re sult [facility] [address] [place] [phone] documented in this encounter Visit Diagnoses Diagnosis Mixed anxiety and depressive disorder- Primary Dysthymic disorder documented in this encounter Additional Health Concerns Assessment Noted Time PHQ-9 Depression Total Score: 13 03/16/ 024 11:27 AM EDT documented as of this encounter Care Teams Maintenance Craftsman Relationship Specialty Start Date End Date [facility] [address] [place] [phone] PCP - General Family Medicine 08/13/22 documented as of this encounter
--- OUTSIDE RECORDS SUMMARY | 2024-11-11 14:10 | XMS_ITS | Encounter Summary ---
Author Organization [employer] Address [address] [facility] 7t [place] [address] Care Team Providers Care Reading Professor Name Role Phone [place] [facility] Primary Care Provider [phone] Encounter Details Date Type Department Care Team ([facility] st Contact Info) Description 02/21/2023 Telephone [facility] MEDICINE 230 [place], [place] [phone] [facility] 230 [place] [address] Social History Tobacco Use Types Packs/Day Years [...] - 02/25/2023 9:57 AM EDT T/C to [phone] for below message, No answer. LVM to call back on [phone]. As per last message , PCP referred pt. For Physical therapy evaluation. * Telephone Encounter - Mirta Vladimir - 02/21/2023 3:11 PM EDT Tc from [facility] requesting a script for Albuterol for nebulize machine. Food And Drug Research Scientist check on med list but nothing. Also [facility] requesting a referral for Occupational Therapy and Physical Therapy in home. To contact [facility] at [phone] Perez documented in this encounter Plan of Treatment Upcoming Encounters Date Type Department Care Team (Late st Contact Info) Description 11/13/2024 10:30 AM EDT Telemedicine [address] [address] 12/16/2024 11:30 AM EDT Office Visit [address] [address] Ginger Perez FNP [address] [place] [address] 01/19/2025 1:30 PM EDT Clinical Support [address] [address] Frida Knapp, OZZY documented as of this encounter Visit Diagnoses Not on filedocumented in this encounter Additional Health Concerns Assessment Noted Time PHQ-9 Depression Total Score: 9 01/25/20 23 1:11 PM EDT documented as of this encounter Care Teams Reading Professor Relationship Specialty Start Date End Date Ginger Perez FNP [address] [place] [address] PCP - General Family Medicine 08/13/22 documented as of this encounter
--- OUTSIDE RECORDS SUMMARY | 2024-11-11 14:10 | XMS_ITS | Encounter Summary ---
Author Organization [employer] Address [address] [facility] 7t [place] [address] Care Team Providers Care Pond Supervisor Name Role Phone [place] [facility] Primary Care Provider [phone] Reason for Visit * Reason Onset Date Comments Med Refill 10/15/2024 Encounter Details Date Type Department Care Team (Late st Contact Info) Description 10/15/2024 Refill [facility] MEDICINE 230 [place], [place] [phone] Frida Knapp RN Mixed anxiety and depressive [...] Description 11/13/2024 10:30 AM EDT Telemedicine [address] [address] 12/16/2024 11:30 AM EDT Office Visit [address] [address] Ginger Perez FNP [address] [place] [address] 01/19/2025 1:30 PM EDT Clinical Support [address] [address] Frida Knapp RN documented as of this encounter Visit Diagnoses Diagnosis Mixed anxiety and depressive disorder Dysthymic disorder documented in this encounter Additional Health Concerns Assessment Noted Time PHQ-9 Depression Total Score: 13 024 11:27 AM EDT documented as of this encounter Care Teams Pond Supervisor Relationship Specialty Start Date End Date Ginger Perez FNP [address] [place] [address] PCP - General Family Medicine 08/13/22 documented as of this encounter
--- OUTSIDE RECORDS SUMMARY | 2024-11-11 14:10 | XMS_ITS | Encounter Summary ---
Author Organization [employer] Address [address] [facility] 7t [place] [address] Care Team Providers Care Rn Gyn Name Role Phone [facility] Primary Care Provider [phone] Reason for Visit * Reason Comments Med Refill Encounter Details Date Type Department Care Team ([facility] st Contact Info) Description 05/22/2024 Refill [facility] MEDICINE 230 [place], [place] [phone] [facility] 230 [place], [place] [phone] Low back pain at multiple sites Social [...] Description 11/13/2024 10:30 AM EDT Telemedicine [address] [address] 12/16/2024 11:30 AM EDT Office Visit [address] [address] Ginger Perez FNP [address] [place] [address] 01/19/2025 1:30 PM EDT Clinical Support [address] [address] Frida Knapp, OZZY documented as of this encounter Visit Diagnoses Diagnosis Low back pain at multiple sites documented in this encounter Additional Health Concerns Assessment Noted Time PHQ-9 Depression Total Score: 13 024 11:27 AM EDT documented as of this encounter Care Teams Rn Gyn Relationship Specialty Start Date End Date Ginger Perez FNP [address] [place] [address] PCP - General Family Medicine 08/13/22 documented as of this encounter
--- OUTSIDE RECORDS SUMMARY | 2024-11-11 14:10 | XMS_ITS | Encounter Summary ---
Author Organization [employer] Address [address] [facility] 7t [place] [address] Care Team Providers Care Geothermal Operations Manager Name Role Phone Ginger Perez Primary Care Provider [phone] Reason for Referral * Consultation (Routine) - Authorized Specialty Diagnoses / Procedures Referred By Melita bingham Referred To Contact Pharmacy Diagnoses Type 2 diabetes mellitus with chronic kidney disease, with long-term current use of insulin, unspecified CKD stage (CMS/HCC) Ginger Perez FNP 230 [place] [address] Phone: tel: fax: Referral ID Status Reason Start Date Expiration Date Visits Requested Visits Authorized [id number] Authorized Continuity of Care 10/16/2024 10/16/2025 6 6 Encounter Details Date Type Department Care Team (Late st Contact Info) Description 10/16/2024 Orders Only [facility] 230 [place], [place] [phone] Ginger Perez FNP 230 [place], [place] [phone] Type 2 diabetes mellitus with chronic kidney [...] Info) Description 11/13/2024 10:30 AM EDT Telemedicine [facility] [address] [place] [phone] 12/16/2024 11:30 AM EDT Office Visit [facility] [address] [place] [address] [place] [facility] 230 [place] [address] 01/19/2025 1:30 PM EDT Clinical Support [facility] [address] [place] [address] Frida Knapp RN Scheduled Referrals Name Type [...] documented as of this encounter Care Teams Geothermal Operations Manager Relationship Specialty Start Date End Date Ginger Perez FNP [address] [place] [address] PCP - General Family Medicine 08/13/22 documented as of this encounter
--- OUTSIDE RECORDS SUMMARY | 2024-11-11 14:10 | XMS_ITS | Encounter Summary ---
Author Organization [employer] Address [address] [facility] 7t [place] [address] Care Team Providers Care Metal Wire Coating Operator Name Role Phone [facility] Primary Care Provider [phone] Reason for Visit * Reason Onset Date Comments Call Back Request 10/09/2024 Encounter Details Date Type Department Care Team ([facility] st Contact Info) Description 10/09/2024 Telephone [facility] MEDICINE 230 [place], [place] [phone] [facility] 230 [place] [address] Call Back Request Social History Tobacco Use [...] refuses to perform it. Any questions contact: [phone] documented in this encounter Plan of Treatment Upcoming Encounters Date Type Department Care Team (Late st Contact Info) Description 11/13/2024 10:30 AM EDT Telemedicine [facility] [place] [facility] [place] [address] 12/16/2024 11:30 AM EDT Office Visit [facility] [place] [address] Ginger Perez FNP [address] [place] [address] [place] [address] 01/19/2025 1:30 PM EDT Clinical Support [facility] [place] [address] Frida Knapp, OZZY documented as of this encounter Visit Diagnoses Not on filedocumented in this encounter Additional Health Concerns Assessment Noted Time PHQ-9 Depression Total Score: 13 024 11:27 AM EDT documented as of this encounter Care Teams Metal Wire Coating Operator Relationship Specialty Start Date End Date Ginger Perez FNP [facility] [address] PCP - General Family Medicine 08/13/22 documented as of this encounter
--- OUTSIDE RECORDS SUMMARY | 2024-11-11 14:10 | XMS_ITS | Encounter Summary ---
Author Organization [employer] Address [address] [facility] 7t [place] [address] Care Team Providers Care Manager Presentation Name Role Phone [facility] Primary Care Provider [phone] Reason for Visit * Reason Comments Med Refill Encounter Details Date Type Department Care Team ([facility] st Contact Info) Description 05/22/2024 Refill [facility] 230 [place], [place] [phone] Roma Man MD 230 [place] [address] Onychomycosis Social History Tobacco Use Types Packs/Day [...] Info) Description 11/13/2024 10:30 AM EDT Telemedicine [address] [address] 12/16/2024 11:30 AM EDT Office Visit [address] [address] Ginger Perez [address] [address] 01/19/2025 1:30 PM EDT Clinical Support [address] [address] Frida nKapp RN documented as of this encounter Visit Diagnoses Diagnosis Onychomycosis Dermatophytosis of nail documented in this encounter Additional Health Concerns Assessment Noted Time PHQ-9 Depression Total Score: 13 024 11:27 AM EDT documented as of this encounter Care Teams Manager Presentation Relationship Specialty Start Date End Date Ginger Perez FNP [address] [place] [address] PCP - General Family Medicine 08/13/22 documented as of this encounter
--- OUTSIDE RECORDS SUMMARY | 2024-11-11 14:10 | XMS_ITS | Clinical Summary ---
Demographics Address [address] [place] [address] Mobile Phone Work Phone Home Phone Preferred Language en Marital Status Single Restorationist Affiliation Unknown Race Other Race Ethnic Group or Author Organization [email or web address] Address [address] [place] [address] Care Team Providers Care Outsole Paraffiner Name Role Phone [facility] Primary Care Provider [phone] Allergies Active Allergy Reactions Criticality Noted Date [...] hyperglycemia, with long-term current use of insulin ([facility]) Use as directed 100 each 11 023 Active Reguloid 57.6 % powderIndicatio ns:Constipation , unspecified constipation type MIX 1 TEASPOONFUL IN 8 OUNCES OF WATER OR JUICE AND DRINK EVERY MORNING 284 g 023 Active Blood Glucose Monitoring Suppl (GNP Easy Touch Glucose Meter) deviceIndicatio ns:Type 2 diabetes mellitus with hyperglycemia, with long-term current use of insulin ([facility]) Use as directed to check blood sugar four times daily 1 each 023 Active glucose blood test stripIndication s:Type 2 diabetes mellitus with hyperglycemia, with long-term current use of insulin ([facility]) Use as directed to check blood sugar [...] hyperglycemia, with long-term current use of insulin ([facility]) USE TO TEST BLOOD SUGAR FOUR TIMES DAILY 100 each 11 023 Active albuterol (2.5 MG/3ML) 0.083% nebulizer solutionIndicat ions:Moderate persistent asthma without complication INHALE 1 AMPULE USING A NEBULIZER EVERY 6 HOURS NEEDED FOR WHEEZING 90 mL 11 024 Active Blood Pressure kitIndications: Type 2 diabetes mellitus with hyperglycemia, with long-term current use of insulin ([facility]) Use as directed 1 kit 024 Active [...] hyperglycemia, with long-term current use of insulin ([facility]) USE DIRECTED FIVE TIMES DAILY 100 each [...] [facility] liver elast[facility]. Reports with hepatic steatosis with evidence of advanced chronic liver disease ? 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 EEG's normal. Per neurology notes, possible dyskenisa s/t hx of antipsychotic medications which patient is no longer taking. Not currently taking any anti- seizure medications. No seizure episodes >2 months. Episodes triggered by emotional stress. Bariatric surgery status 09/29/2022 Overview (09/29/2022): ? ? Lap band was removed approx 8 years ago in [facility]; repeat lap band through [facility] without weight loss. Very upset by experience at [facility]. Currently working with [facility] weight mgnmt for removal of lap band. Assessment & Plan (05/03/2023 10:30 AM EDT): ?? Details of current weight mngmt plan through [facility] unclear. Will request notes and follow up as indicated Obstructive sleep apnea 09/29/2022 Overview (06/04/2023): ?? Compliant with BiPAP ?? Followed by [facility] neurology and sleep clinic. Dr. Temple Gender dysphoria in adult 09/29/2022 Overview (09/29/2022): ?? Interested in pursuing top and bottom gender reassignment surgery ?? Not a candidate for hormone therapy Healthcare maintenance 09/29/2022 Overview (02/25/2024): Mammo: 07/2022--Birads 2 Pap: HPV negative 2019, no cytology on record. C-scope: Upcoming colonoscopy [facility] GI BMD: Routine age [...] medication management. Any issues or concerns, contact [facility]. All his questions were answered and [...] be left alone, encouraged to request increased LIGHTING ENGINEER hours. Will increase bedtime Gabapentin to 1200 [...] of family members and/or 1 of 2 LIGHTING ENGINEER's always present. Patient was able to contract [...] prescriber. We did not discuss my planned halfway today. F/U with me in 1 month. [...] 25 mg daily Followed by [facility] Children'S Literature Professor Has dexcom CGM Metformin stopped due to [...] to follow as scheduled with [facility] DM educator ?? Will task RN's to contact patients daycare assistant to ensure that [facility] is aware of med change. ?? Strongly encouraged patient to continue with LIGHTING ENGINEER/VNA services due to multiple chronic conditions and patient's difficulty self managing care. Patient verbalizes understanding and agrees to plan Assessment & Plan (05/03/2023 10:15 AM EDT): ?? Continue to work with [facility] DM educator Henny-will request [...] Encounters Date Type Department Care Team Description 11/10/[address] [address] MorleyGinger canales FNP Lab Orders 11/09/2024 Orders Only [facility] [address] [place] [phone] MorleyGinger FNP Weight loss (Primary Dx) 11/05/2024 Orders Only GENERIC EXTERNAL DATA DEPARTMENT Provider, Generic External Data 11/02/[address] [address] Frida Knapp, RN Error (VOID this visit) 10/30/[address] [address] Frida Knapp, RN Clonazepam count 10/29/2024 1:30 PM EST Clinical Support [address] [address] Frida Knapp, RN Mixed anxiety and depressive disorder (Primary Dx) 10/29/[address] [address] Frida Knapp, RN Low back pain at multiple sites (Primary Dx) 10/29/2024 Travel 10/29/2024 Telephone [place] [address] [facility] [place] [address] Frida Knapp, RN Recommend TRACK MAN Tier 2 10/23/2024 Telephone [facility] [address] [facility] [place] [address] MorleyGinger FNP 10/20/2024 Telephone [facility] [address] [facility] [place] [place] [address] Frida Knapp, RN [facility] Homecare 10/16/2024 Orders Only [facility] [address] [facility] [place] [address] MorleyGinger canales FNP Type 2 diabetes mellitus with chronic kidney disease, with long-term current use of insulin, unspecified CKD stage ([facility]) (Primary Dx) 10/15/2024 Refill [facility] [place] [address] Frida Knapp RN Mixed anxiety and depressive disorder 10/15/2024 [address] [place] [address] Ginger Perez FNP Medication Question 10/09/[address] [place] [address] AnaGinger canales FNP Call Back Request 10/06/2024 Telephone [facility] [facility] [place] [address] AnaGinger canales FNP Results 10/05/2024 Telephone [facility] [address] [address] Kimberly Michael, RN Results 10/05/2024 Orders Only [facility] [address] [facility] [place] [address] AnaGinger canales FNP Subclinical hyperthyroidism (Primary Dx) 10/01/2024 Telephone [facility] [address] [address] Ginger Perez FNP Nurse Triage 10/01/2024 Telephone [facility] [place] [address] MorleyGinger canales FNP Durable Medical Equipment (DME: Disposable Underpad) 10/01/2024 Orders Only [address] [place] [address] [facility] 09/29/2024 Telephone [facility] [place] [address] Marisabel Kaye, RN Results 09/28/2024 Orders Only [facility] [facility] [place] [address] [facility] Abnormal TSH (Primary Dx) 09/15/[address] [place] [address] [facility] 09/15/2024 Telephone [facility] [place] [address] Angelic Keys, OZZY Care Coordination 09/14/2024 11:30 AM EST Office Visit [address] [place] [address] [facility] Type 2 diabetes mellitus with hypoglycemia without coma, with long-term current use of insulin ([facility]) (Primary Dx); Tremor of hands and face; Decreased hearing of left ear 09/14/2024 Orders Only [facility] [place] [address] [facility] 09/14/2024 Travel 09/08/2024 10:15 AM EST Office Visit [facility] [place] [address] Corbin Hughes CNM Postmenopausal bleeding (Primary Dx); Epidermal cyst of vulva 09/08/2024 Travel 08/18/[address] [address] [facility] Nurse Triage 08/13/2024 Orders Only GENERIC EXTERNAL [...] Description 11/13/2024 10:30 AM EDT Telemedicine [address] [address] 12/16/2024 11:30 AM EDT Office Visit [address] [address] 01/19/2025 1:30 PM EDT Clinical Support [facility] [address] [place] [phone] Frida Knapp, OZZY Health Maintenance Due Date Last Done Comments [...] 60-74 years 1-dose series) 2023 COVID-19 Vaccine (1 - season) 2024 Influenza Vaccine (#1) 2024 , [...] current use of insulin, unspecified CKD stage ([facility]) MR BRAIN WO CONTRAST Routine 09/24/2024 3:41 [...] Whole Blood 87 60 - 115 mg/dL [facility] Comment:METER #: [id number] 5Testing performed in the Endocrinology Department [address] , [address], [facility]. 11/05/2024 2:23 PM EST 11/05/2024 2:30 PM EST Generic External Data Provider LAB BLOOD ORDERAB LES Final Result Performing Organization Address City/State/[facility] Co de Phone Number [facility] [address] [place] [phone] * (ABNORMAL) POCT BLANKA-14 Urine Drug Screen (10/29/2024 2:03 PM EST) THC Positive Benzodiazepines Screen, Urine Negative Urine Urine specimen obtained by clean catch procedure / Unknown 10/29/2024 2:03 PM EST Narrative Frida Knapp RN - 10/29/2024 2:03 PM EST UTOX cup Lot#[id number] Exp. 04/21/26 Internal Pass Control [facility] [employer]PER[employer] POINT OF CARE TEST ENTER/EDIT ORDERABLES Final Result * Drug Monitoring, Benzodiazepines, Quantitative, Urine (10/29/2024 1:45 PM EST) Nordiazepam, GCMS Urine NEGATIVE [facility] Oxazepam, GCMS Urine NEGATIVE [facility] Lorazepam GCMS Urine NEGATIVE [facility] Alprazolam, GCMS Urine NEGATIVE [facility] Alphahydroxytriazolam , GCMS Ur NEGATIVE [facility] Temazepam, GCMS Urine NEGATIVE [facility] Alphahydroxymidazolam ,GCMS Ur NEGATIVE [facility] Aminoclonazepam, GCMS Urine 829 [facility] Comment:REFERENCE RANGE: <25 ng/mL Flurazepam Metabolite,GCMS Ur NEGATIVE [facility] Benzodiazepines Comments SEE NOTE [facility] Comment:This drug testing is for medical treatment only. Analysiswas performed as non-forensic testing and these resultsshould be used only by healthcare providers to renderdiagnosis or treatment, or to monitor progress of medicalconditions.Benzodiazepines Notes:Aminoclonazepam detected is consistent with the use of thedrug Clonazepam.LDT Notes:Confirmation tests were developed and their analyticalperformance characteristics have been determined by [employer]. It has not been cleared or approved by the FDA.This assay has been validated pursuant to the CLIAregulations and is used for clinical purposes.Healthcare Providers needing Interpretation assistance,please contact us at [phone] ( ) M-F,8am to 10pm ESTTHIS TEST PERFORMED AT:[facility] [address] [phone] DIRECTOR: LIEN HARO MD Urine (Urine, Random) 10/29/2024 1:45 PM EST 10/29/2024 6:14 PM EST [facility] LAB URINE ORDERABLES Final Re sult [facility] [address] [place] [phone] * Referral to Audiology (10/05/2024) [facility] OUTPATIENT REFERRAL ORDERABLE S Final Result * (ABNORMAL) TSH W/Reflex to FT4 (10/01/2024 9:58 AM EST) Only the most recent of2 resultswithin the time period is included. TSH reflex Free T4 0.27(L) 0.32 - 4.0 uIU/mL [facility] Blood Venous blood specimen / Unknown 10/01/2024 9:58 AM EST 10/01/2024 11:04 AM EST [facility] LAB BLOOD ORDERABLES Final Re sult Performing Organization Address [facility]/ZIP Co de Phone Number [facility] [address] [place] [phone] * Thyroid Peroxidase Antibodies (10/01/2024 9:58 AM EST) Thyroid Peroxidase Antibodies <1 <9 IU/mL [facility] Comment:THIS TEST WAS PERFOR MED AT:Office Center [address] [phone] HARO MD Blood Venous blood specimen / Unknown 10/01/2024 9:58 AM EST 10/01/2024 11:04 AM EST [facility] LAB BLOOD ORDERABLES Final Re sult Performing Organization Address [facility] Co de Phone Number [facility] [address] [place] [phone] * TRAb (TSH Receptor Binding Antibody) (10/01/2024 9:58 AM EST) TRAb (TSH Receptor Binding Antibody) <1.00 <=2.00 IU/L [facility] Comment:This test was perfor med using the TRAb Antibody ELISAmethod which is standardized against the 1stInternational Standard 90/672 and is reported inInternational Units (IU/L). The reference rangereported was established specifically for this testmethod.THIS TEST WAS PERFORMED AT:Office Center/[id number] [place] [address]QQRXEOHSALEEM IRBY MD,PHD Blood Venous blood specimen / Unknown 10/01/2024 9:58 AM EST 10/01/2024 11:04 AM EST [facility] LAB BLOOD ORDERABLES Final Re sult Performing Organization Address [facility] Co de Phone Number [facility] [address] [place] [phone] * HIV-1/2 Antigen and Antibodies, Fourth Generation, with Reflexes (10/01/2024 9:58 AM EST) Only the most recent of2 resultswithin the time period is included. Pathologist [facility] HIV AB/AG Nonreactive Nonreactive [facility] Comment:HIV-1 p24 Ag and/or HIV-1/HIV-2 Ab not detected.A test result that is nonreactive does not exclude thepossibility of exposure to or infection with HIV-1 and/orHIV-2. Nonreactive results in this assay for individualswith prior exposure to HIV-1 and/or HIV-2 may be due toantigen and antibody levels that are below the limit ofdetection of this assay.The [employer] [facility] HIV Ag/Ab Combo assay result andsupplemental assay results should be interpreted inconjunction with the patient's clinical presentation,history and other laboratory results. If the results areinconsistent with clinical evidence, additional testing issuggested to confirm the result. Blood Venous blood specimen / Unknown 10/01/2024 9:58 AM EST 10/01/2024 11:04 AM EST [facility] LAB BLOOD ORDERABLES Final Re sult Performing Organization Address City/[facility] Co de Phone Number [facility] [address] [place] [phone] * T4, Free (10/01/2024 9:58 AM EST) Only the most recent of2 resultswithin the time period is included. Free T4 (Free Thyroxine) 0.91 0.71 - 1.85 ng/dL [facility] 10/01/2024 9:58 AM EST 10/01/2024 11:04 AM EST [facility] SU[employer] LAB BLOOD ORDERABLES Final Re sult [facility] [address] [place] [phone] * MR Brain w/o Contrast (09/24/2024 3:41 PM EST) Anatomical Region Laterality Modality Brain Magnetic Resonan ce 09/24/2024 3:41 PM EST Narrative 09/25/2024 7:34 AM EST ? [facility] ?[address] ?[place] [address] ? Magnetic Resonance Report ? Signed ? Patient: Hilda Mcmahan ?MR#: [id number] ?? [id number] ? : 1965 ?Acct:[id number] ? Age/Sex: 59 / F ?ADM Date: 09/24/24 ? Loc: HO.MRI ? Attending Dr: Ginger Perez SUPERVISOR [employer]ATE [employer] ? Ordering Physician: Ginger Perez ?? Date of Service: 09/24/24 ?? Procedure(s): MR head/brain wo con ?? Accession Number(s): [id number] ? cc: Ginger Perez [employer]PER[employer] ? EXAMINATION: ??MR BRAIN WITHOUT IV CONTRAST [...] DD/ 1541 ? TD/TT: 09/24/24 1624 ? Cutter Apprentice Hand: ? Procedure Note Mendoza Currie - 09/25/2024 [place] [address] Magnetic Resonance Report Signed Patient: Hilda Mcmahan#: [id number] : 1965Acct:[id number] Age/Sex: 59 / FADM Date: 09/24/24 Loc: HO.MRI Attending Dr: Ginger DUARTE Ordering Physician: Ginger Perez Date of Service: 09/24/24 Procedure(s): MR head/brain wo con Accession Number(s): [id number] cc: Ginger Perez EXAMINATION: MR BRAIN WITHOUT [...] 09/25/24 0731 DD/ 1541 TD/TT: 09/24/24 1624 Cutter Apprentice Hand: [facility] IMG MRI PROCEDURES Final Resu lt * Syphilis Screen (09/14/2024 1:25 PM EST) Pathologist [facility] Syphilis Screen Nonreactive Nonreactive [facility] Blood 09/14/2024 1:25 PM EST 09/14/2024 4:07 PM EST [facility] LAB BLOOD ORDERABLES Final Re sult [facility] [address] [place] [phone] * (ABNORMAL) CBC auto differential (09/14/2024 1:25 PM EST) White Blood Count 7.5 4.8 - 10.8 X10*3/uL [facility] Red Blood Count 5.24 4.20 - 5.50 X10*6/uL [facility] Hemoglobin 13.7 12.0 - 16.0 g/dl [facility] Hematocrit 43.5 37.0 - 47.0 % [facility] Mean Corpuscular Volume 83.0 80.0 - 98.0 fL [facility] Mean Corpuscular Hemoglobin 26.1(L) 27.0 - 33.0 pg [facility] Mean Corpuscular HGB Conc 31.5 31.0 - 35.0 g/dl [facility] Red Cell Distribution Width 14.3 11.0 - 16.0 % [facility] Platelet Count 220 160 - 400 X10*3/uL [facility] Mean Platelet Volume 12.2 9.4 - 12.3 fL [facility] Neutrophils Percent Auto 54.9 45 - 73 % [facility] Imm Gran Pct Auto 0.8(H) 0.0 - 0.4 % [facility] Lymphocytes Percent Auto 33.4 20 - 40 % [facility] Monocytes Percent Auto 6.4 2 - 11 % [facility] Eosinophils Percent Auto 4.2(H) 0 - 4 % [facility] Basophils Percent Auto 0.3 0 - 2 % [facility] NRBC Pct Auto 0.0 0.0 - 0.2 /100WBC [facility] Neutrophils Absolute Auto 4.1 2.0 - 8.3 x10*3/uL [facility] Imm Gran Abs Auto 0.06(H) 0.00 - 0.03 X10*3/uL [facility] Lymphocytes Absolute Auto 2.5 1.2 - 4.9 X10*3/uL [facility] Monocytes Absolute Auto 0.5 0.1 - 1.2 X10*3/uL [facility] Eosinophils Absolute Auto 0.3 0.0 - 0.4 X10*3/uL [facility] Basophils Absolute Auto 0.0 0.0 - 0.2 X10*3/uL [facility] NRBC Abs Auto 0.000 0.0 - 0.012 X10*3/uL [facility] Blood Venous blood specimen / Unknown 09/14/2024 1:25 PM EST 09/14/2024 4:07 PM EST [facility] [employer] LAB BLOOD ORDERABLES Final Re sult [facility] [address] [place] [phone] [phone] * (ABNORMAL) Lipid Panel, Standard (09/14/2024 1:25 PM EST) Triglycerides 123 <150 mg/dL [facility] Comment:Desirable Triglyceri de: less than 150 mg/dLBorderline High Triglyceride 150-199 mg/dLHigh Triglyceride: 200-499 mg/dLVery High Triglyceride: greater than or equal to 5OO mg/dL Cholesterol 146 <200 mg/dL [facility] Comment:Desirable Cholestero l: less than 200 mg/dLBorderline High Cholesterol: 200-239 mg/dLHigh Cholesterol: greater than 239 mg/dL LDL Cholesterol Calculated 83 <100 mg/dL [facility] Comment:Desirable LDL: less than 100 mg/dLNear Optimal/Above Optimal LDL: 110- 129 mg/dLBorderline High LDL: 130-159 mg/dLHigh LDL: 160-189 mg/dLVery High LDL: greater than or equal to 190 mg/dL HDL Cholesterol 39(L) >40 mg/dL [facility] Comment:Desirable HDL: great er than 40 mg/dL Note: This HDL assay may give artificially low results in patients with liver disease. Blood Venous blood specimen / Unknown 09/14/2024 1:25 PM EST 09/14/2024 4:07 PM EST [facility] LAB BLOOD ORDERABLES Final Re sult [facility] [address] [place] [phone] * STI testing add on (NG, CT, Trich) (09/08/2024 9:30 AM EST) Trichomonas (NAAT) Not Detected Not Detected [facility] Comment:Methodology: Transcr iption Mediated Amplification(TMA)The analytical performance characteristics of thisassay have been determined by [facility], [place], [place]. The modificationshave not been cleared or approved by the FDA. Thisassay has been validated pursuant to the CLIAregulations and is used for clinical purposes.For additional information, please refer tohttp://education.Xquva/faq/Trichomonastma (This link is being providedfor information/educational purposes only).THIS TEST WAS PERFORMED AT:Office Center/[id number] [place] [address]XBYARHKSALEEM IRBY MD,PHD CTNG Ref Lab Not Detected Not Detected [facility] NG Ref Lab Not Detected Not Detected [facility] Comment:Methodology: Transcr iption Mediated Amplification(TMA) to detect RNA.The analytical performance characteristics of thisassay, when used to test [employer] specimens havebeen determined by [facility]. The modificationshave not been cleared or approved by the FDA.This assay has been validated pursuant to the CLIAregulations and is used for clinical purposes.For additional information, please refer tohttps://education.Xquva/faq/GQF103(This link is being provided for information/educational purposes only).THIS TEST WAS PERFORMED AT:Office Center/[facility] [id number] [place] [address]FSOGERHSALEEM IRBY MD,PHD ThinPrep?? vial Cervix uteri structure / Unknown 09/08/2024 9:30 AM EST 09/09/2024 10:20 AM EST [facility] - 09/13/2024 11:00 PM EST Collection Date: [id number] by: WON Cardenas: Cervix Corbin Hughes [facility] LAB CYTOLOGY ORDERABLES F inal Result [facility] [address] [place] [phone] * Pap Smear (09/08/2024 9:30 AM EST) Swab Cervix uteri structure / Unknown 09/08/2024 9:30 AM EST 09/09/2024 10:20 AM EST [facility] - 09/17/2024 3:06 PM EST ----- ------- Name: Hilda Mcmahan ? Age/Sex: 59/F ? : 1965 Unit#: [id number] ?? Attend Dr: CORBIN HUGHES CNM ?Re09/08/24 ?Status: DEP REF ? Location: HO.LNP ?Disch: ? ----- ------- SPEC : [id number] ?RECD: 09/09/24-1019 ? STATUS: ??SOUT ? REQ NUM: [id number] ? LORI: 09/08/24 ? SUBM DR: CORBIN [...] (signature on file) TALIB Roche (ASCP) 09/17/24 4170 ? ----- ------- ? END OF REPORT ? us Corbin Hughes [facility] LAB CYTOLOGY ORDERABLES F inal Result [facility] [address] [place] [address] [phone] * BI Mammogram Screening Tomosynthesis Bilateral (08/27/2024 1:05 PM EST) Anatomical Region Laterality Modality Breast Bilateral Mammography 08/27/2024 1:05 PM EST Narrative 09/08/2024 4:57 PM EST ? [facility] ? [address] ?[place] [address] ? Mammography Report ? Signed ? Patient: Hilda Mcmahan ?MR#: [id number] ?? [id number] ? : 1965 ?Acct:[id number] ? Age/Sex: 59 / F ?ADM Date: 08/27/ ? Loc: HO.MAMMO ? Attending Dr: Oz Sahni MD ? Ordering Physician: Ana,Ginger [employer]PER[employer]OR [employer] ?Results: 1Nega ?? tive ? Date of Service: 08/27/24 ?Follow Up: 1 Year From Orig ?? inal Mammogram ? Procedure(s): MM tomosynthesis screening BI ?? Accession Number(s): [id number] ? cc: Ginger Perez SUPER[employer] ? EXAMINATION: ?? MM SCREENING DIGITAL BREAST [...] next mammogram. ? Electronically signed by: ??Pepper eMrcer DO ??09/08/2024 04:54 PM EST ?? RP ? Dictated By: ?Pepper Mercer DO ? Signed By: ?<Electronically signed by Pepper Mercer, DO in OV> ? 09/08/24 1654 ? DD/ 1305 ? TD/TT: 08/27/24 1329 ? Cutter Apprentice Hand: ? Procedure Note Mendoza Currie - 09/08/2024 [facility] [address] [place], [place] [address] Mammography Report Signed Patient: Hilda McmahanMR#: [id number] : 1965Acct:[id number] Age/Sex: 59 / FADM Date: 08/27/24 Loc: ANDRÉSO Attending Dr: Oz Sahni MD Ordering Physician: Ginger Perez FNPResults: 1Nega tive Date of Service: 08/27/24Follow Up: 1 Year From Orig inal Mammogram Procedure(s): MM tomosynthesis screening BI Accession Number(s): [id number] cc: Ginger Perez [employer]PER[employer] EXAMINATION: MM SCREENING DIGITAL BREAST TOMOSYNTHESIS, BILATERAL [...] 09/08/24 1654 DD/ 1305 TD/TT: 08/27/24 1329 Cutter Apprentice Hand: [facility] SUPER[employer] IMG BI PROCEDURES Final Resul t * Ethanol (08/13/2024 5:21 AM EST) ETHANOL (MG/DL) IN SER/PLAS <10 mg/dL [facility] Comment:Serum/plasma ethanol results are to be used formedical/treatment purposes only. 08/13/2024 5:21 AM EST 08/13/2024 5:26 AM EST Generic External Data Provider LAB BLOOD ORDERAB LES Final Result [facility] [address] [place] [phone] * (ABNORMAL) Drug Monitoring, Panel 1, Screen, Urine (08/13/2024 5:21 AM EST) Opiate Screen Urine Not Detected Not Detect [facility] Comment:Opiate cut-off is 30 0 ng/mL.Positive results are unconfirmed and should not be used fornon-medical purposes. Barbiturates, Urine Not Detected Not Detect [facility] Comment:Barbiturate cut-off is 200 ng/mL.Positive results are unconfirmed and should not be used fornon-medical purposes. Phencyclidine Screen Urine Not Detected Not Detect [facility] Comment:Phencyclidine cut-of f is 25 ng/mL.Positive results are unconfirmed and should not be used fornon-medical purposes. Amphetamine Screen Urine Not Detected Not Detect [facility] Comment:Amphetamine cut-off is 1000 ng/mL.Positive results are unconfirmed and should not be used fornon-medical purposes. Benzodiazepines Screen Urine Not Detected Not Detect [facility] Comment:Benzodiazepine cut-o ff is 200 ng/mL.Positive results are unconfirmed and should not be used fornon-medical purposes. Cocaine Screen Urine Not Detected Not Detect [facility] Comment:Cocaine cut-off is 3 00 ng/mL.Positive results are unconfirmed and should not be used fornon-medical purposes. Cannabinoid Screen Urine POSITIVE(A) Not Detect [facility] Comment:Cannabinoid cut-off is 50 ng/mL.Positive results are unconfirmed and should not be used fornon-medical purposes. Methadone Screen, Urine Not Detected Not Detect ng/mL [facility] Comment:Methadone cut-off is 300 ng/mL.Positive results are unconfirmed and should not be used fornon-medical purposes. FENTANYL URINE Not Detected Not Detect [facility] Comment:Fentanyl cut-off is 1 ng/mL.Positive results are unconfirmed and should not be used fornon-medical purposes. Oxycodone Urine Screen Not Detected Not Detect ng/mL [facility] Comment:Oxycodone cut-off is 100 ng/mL.Positive results are unconfirmed and should not be used fornon-medical purposes. Buprenorphine Screen Not Detected Not Detect ng/mL [facility] Comment:Buprenorphine cut-of f is 5 ng/mL.Positive results are unconfirmed and should not be used fornon-medical purposes. 08/13/2024 5:21 AM EST 08/13/2024 5:26 AM EST Generic External Data Provider LAB URINE ORDERAB LES Final Result [facility] [address] [place] [address] [phone] * Magnesium (08/13/2024 5:21 AM EST) [facility] Magnesium 1.9 1.6 - 2.6 mg/dL [facility] 08/13/2024 5:21 AM EST 08/13/2024 5:26 AM EST Generic External Data Provider LAB BLOOD ORDERAB LES Final Result Performing Organization Address [facility] Co de Phone Number [facility] [address] [place] [address] [phone] * Hepatic Function Panel (08/13/2024 5:21 AM EST) [facility] Bilirubin, Total 0.5 0.0 - 1.0 mg/dL [facility] Bilirubin, Direct 0.2 0.0 - 0.5 mg/dL [facility] Aspartate Amino Transferase 22 5 - 31 U/L [facility] Alanine Aminotransferase 15 0 - 31 U/L [facility] Total Protein 7.4 6.5 - 8.0 g/dL [facility] Albumin Level 3.9 3.5 - 5.0 g/dL [facility] Alkaline Phosphatase 93 39 - 117 U/L [facility] 08/13/2024 5:21 AM EST 08/13/2024 5:26 AM EST Generic External Data Provider LAB BLOOD ORDERAB LES Final Result Performing Organization Address [facility] [facility] Co de Phone Number [facility] [address] [place] [phone] * (ABNORMAL) Basic Metabolic Panel (08/13/2024 5:21 AM EST) [facility] Sodium 148(H) 135 - 145 mmol/L [facility] Potassium 3.8 3.3 - 5.1 mmol/L [facility] Chloride 116(H) 96 - 108 mmol/L [facility] Carbon Dioxide 22 22 - 29 mmol/L [facility] Anion Gap 14 12 - 20 [facility] Urea Nitrogen (BUN) 11 9 - 16 mg/dL [facility] Creatinine, Serum 1.00 0.5 - 1.4 mg/dL [facility] Creatinine Clr Calc Pharmacy 70.0 [facility] Comment:Provided height and weight: 165.1 cm,102.058 kg.eGFR (calculated from the MDRD study equation) and eCrCl(calculated from the Cockcroft-Gault equation) are based ondifferent parameters and may not yield comparable results.If eCrCl result is absurd, please check patient'sheight/weight. Estimated Glomerular Filt Rate 56 [facility] Comment:Chronic Kidney Disea se: Estimated GFR < 60 mL/min/1.63y4Rjqscm Kidney Disease: Estimated GFR < 15 mL/min/1.73m2 Glucose 110 60 - 115 mg/dL [facility] Calcium 9.9 8.4 - 10.2 mg/dL [facility] 08/13/2024 5:21 AM EST 08/13/2024 5:26 AM EST [employer] External Data Provider LAB BLOOD ORDERAB LES Final Result [facility] [address] [place] [phone] * (ABNORMAL) POCT HGB A1C (05/13/2024 12:23 PM EDT) Hemoglobin A1C 6.2(A) 4.0 - 6.0 % QC Media Lot # [id number] Lot# Expiration Date [id number] Blood 05/13/2024 12:2 3 PM EDT [facility] SU[employer]ATE [employer] POINT OF CARE TEST ENTER/EDIT ORDERABLES Final Result * Hepatitis C Antibody with Reflex to HCV, RNA, Quantitative, Real-Time PCR (09/25/2022 12:06 PM EST) Hepatitis C Antibody NON-REACT MRARY NON-REACT MARRY [facility] [place] [employer] Index 0.12 <1.00 [facility] [place] [employer] Comment: HCV antibody was non-reactive. There is no laboratory evidence of HCV infection. In most cases, no further action is required. However, if recent HCV exposure is suspected, a test for HCV RNA (test code 20473) is suggested. For additional information please refer to http://[place].Xquva/faq/JHN45f2 (This link is being provided for informational/ educational purposes only.) Blood Venous blood specimen / Unknown 09/25/2022 12:06 PM EST 09/25/2022 12:06 PM EST Narrative [facility] - 09/27/2022 8:46 AM EST FASTING:YES FASTING: YES [facility] LAB BLOOD ORDERABLES Final Re sult [facility] [address] [facility] [facility], [place] [address] [facility] [employer] [address], ([address]) [place] [address] * HPV mRNA E6/E7 (09/09/2019 11:55 AM EST) Pathologist [facility] HPV mRNA E6/E7 Not Detected NOT DETECTED [facility] Comment: This test was performed using the APTIMA(R) HPV Assay ([employer] This assay detects E6/E7 viral messenger RNA (mRNA) from 14 high-risk HPV types (16,18,31,33,35,39,45,51, 52,56,58,59,66,68). For additional information please refer to: http://education.Xquva/faq/IUC484a1 (This link is being provided for informational/ educational purposes only.) The analytical performance characteristics of this assay have been determined by [facility] [place], [place]. The modifications have not been cleared or approved by the FDA. This assay has been validated pursuant to the CLIA regulations and is used for clinical purposes. Test Performed by [employer], [facility], [address] [place] [address] Saleem Irby M.D., Ph.D., Director of Laboratories , CLIA [id number] Please note: ??Effective 05/14/2016, HPV testing will be performed using [employer] APTIMA test which targets mRNA. Detecting mRNA instead of DNA, as in older methods, offers significant improvements in specificity. 09/09/2019 11:5 5 AM EST us Corbin Hughes CNM HISTORICAL/NON ORDERABLE LABS Final Result [facility] [address] from Last 3 Months or Most Recently Relevant to Health Maintenance Insurance Access Information Management C3 Care Teams Outsole Paraffiner Relationship Specialty Start Date End Date MorleyGinger, GERALD [address] [place] [phone] PCP - General Family Medicine 08/13/22
--- OUTSIDE RECORDS SUMMARY | 2024-11-11 14:10 | XMS_ITS | Encounter Summary ---
Author Organization [employer] Address [address] [facility] 7t [place] [address] Care Team Providers Care Retention Manager Name Role Phone [facility] Primary Care Provider [phone] Reason for Visit * Reason Onset Date Comments Referral 07/19/2023 Encounter Details Date Type Department Care Team ([facility] st Contact Info) Description 07/19/2023 Telephone [facility] [address], [place] [phone] [facility] [address] [place], [place] [phone] Referral Social History Tobacco Use Types Packs/Day [...] 10:29 AM EST Tc from sarah with [facility] states [facility] has not received referral. Also requesting for referral to be sent to a different location due to no availability. Any questions, contact sarah at [phone] documented in this encounter Plan of Treatment Upcoming Encounters Date Type Department Care Team (Late st Contact Info) Description 11/13/2024 10:30 AM EDT Telemedicine [address] [address] 12/16/2024 11:30 AM EDT Office Visit [address] [address] 01/19/2025 1:30 PM EDT Clinical Support [facility] [address] [place] [phone] Frida Knapp, OZZY documented as of this encounter Visit Diagnoses Not on filedocumented in this encounter Additional Health Concerns Assessment Noted Time PHQ-9 Depression Total Score: 16 023 9:09 AM EDT documented as of this encounter Care Teams Retention Manager Relationship Specialty Start Date End Date Stacy Ginger [facility] [address] [place] [phone] PCP - General Family Medicine 08/13/22 documented as of this encounter
--- OUTSIDE RECORDS SUMMARY | 2024-11-11 14:10 | XMS_ITS | Encounter Summary ---
Author Organization [employer] Address [address] [facility] [address] [place] [address] Care Team Providers Care Solid Fiber Paster Operator Name Role Phone [facility] Primary Care Provider [phone] Reason for Visit * Reason Onset Date Comments Medication Question 10/15/2024 Encounter Details Date Type Department Care Team ([facility] st Contact Info) Description 10/15/2024 Telephone [facility] [address] [place], [place] [phone] [facility] [address] [place], [place] [phone] Medication Question Social History Tobacco Use Types [...] 10/16/2024 2:47 PM EST TC to patient. ANIMAL WARDEN Initial appt scheduled for 10/29/24 @ 1:30pm. Patient states she has a VNA Nurse,Molly, who comes to her house 2 x a day to give him his medication and her WOOL SCOURER Roma comes to all her appointments with her. * Telephone Encounter - Estela Avelar RN - 10/15/2024 2:30 PM EST Additional call from pharmacy, pt would also like to go back to having [facility], requesting referral from PCP. * Telephone Encounter - Estela Avelar RN - 10/15/2024 1:36 PM EST Incoming phone call from [facility] (Ariela) who stated that the pt is requesting refills on 2 medications, would like PCP review: - Clonazepam 1mg TID: previously prescribed by GERALD Webb from [facility]. Pt is due, last pickedup on 09/08/24. Pharmacy is wondering if PCP can take over prescribing this medication. - Mounjaro 5mg: picked up 10/09/24 however pt lost the medication somewhere between [facility] and her home. Pharmacy is asking for new script and will then call insurance to get authorization on early refill. Advised pharmacy that PCP out of office today and will be in office tomorrow. Ariela verbalized understating. documented in this encounter Plan of Treatment Upcoming Encounters Date Type Department Care Team (Late st Contact Info) Description 11/13/2024 10:30 AM EDT Telemedicine [address] [address] 12/16/2024 11:30 AM EDT Office Visit [facility] [address] [place] [phone] Ginger Perez [address] [address] 01/19/2025 1:30 PM EDT Clinical Support [facility] [address] [place] [phone] Frida Knapp RN documented as of this encounter Visit Diagnoses Not on filedocumented in this encounter Additional Health Concerns Assessment Noted Time PHQ-9 Depression Total Score: 13 024 11:27 AM EDT documented as of this encounter Care Teams Solid Fiber Paster Operator Relationship Specialty Start Date End Date Ginger Perez FNP [address] [place] [phone] PCP - General Family Medicine 08/13/22 documented as of this encounter
--- OUTSIDE RECORDS SUMMARY | 2024-11-11 14:10 | XMS_ITS | Encounter Summary ---
Author Organization [employer] Address [address] [facility] 7t [place] [address] Care Team Providers Care Knife Operator Name Role Phone [facility] Primary Care Provider [phone] Reason for Visit * Reason Comments Med Refill Encounter Details Date Type Department Care Team ([facility] st Contact Info) Description 06/25/2023 Refill [facility] [address], [place] [phone] [facility] [address] [place], [place] [phone] Muscle spasm Social History Tobacco Use Types [...] Info) Description 11/13/2024 10:30 AM EDT Telemedicine [address] [address] 12/16/2024 11:30 AM EDT Office Visit [address] [address] Ginger Perez FNP [address] [place] [phone] 01/19/2025 1:30 PM EDT Clinical Support [address] [address] Frida Knapp RN documented as of this encounter Visit Diagnoses Diagnosis Muscle spasm Spasm of muscle documented in this encounter Additional Health Concerns Assessment Noted Time PHQ-9 Depression Total Score: 16 023 9:09 AM EDT documented as of this encounter Care Teams Knife Operator Relationship Specialty Start Date End Date Ginger Perez FNP [address] [place] [phone] PCP - General Family Medicine 08/13/22 documented as of this encounter
--- OUTSIDE RECORDS SUMMARY | 2024-11-11 14:10 | XMS_ITS | Encounter Summary ---
Author Organization [employer] Address [address] [facility] 7t [place] [address] Care Team Providers Care Benefits Director Name Role Phone [facility] Primary Care Provider Reason for Visit * Reason Comments Med Refill Encounter Details Date Type Department Care Team ([facility] st Contact Info) Description 05/11/2024 Refill [facility] [address] [place], [place] [phone] Roma Man MD [address] [place] [address] Onychomycosis Social History Tobacco Use Types Packs/Day [...] Info) Description 11/13/2024 10:30 AM EDT Telemedicine [address] [address] 12/16/2024 11:30 AM EDT Office Visit [address] [address] Ginger Perez [address] [address] 01/19/2025 1:30 PM EDT Clinical Support [address] [address] Frida Knapp RN documented as of this encounter Visit Diagnoses Diagnosis Onychomycosis Dermatophytosis of nail documented in this encounter Additional Health Concerns Assessment Noted Time PHQ-9 Depression Total Score: 13 024 11:27 AM EDT documented as of this encounter Care Teams Benefits Director Relationship Specialty Start Date End Date Ginger Perez FNP [address] [place] [phone] PCP - General Family Medicine 08/13/22 documented as of this encounter
== END 2024-11-11 13:26 | disposition home or self-care (01) ==
LOC: HO.ENCR 12:08
PROVIDERS: PCP Registered Nurse; Visit Provider Dietitian, Registered
DX: E11.9 Type 2 diabetes mellitus without complications (principal); Z79.4 Long term (current) use of insulin

== ENCOUNTER → 2024-11-11 12:07 | Outpatient (BNVA) | payer MEDICAID, SELFPAY | PROVIDERS: PCP Registered Nurse; Visit Provider Dietitian, Registered | DX: E11.9 Type 2 diabetes mellitus without complications (principal); Z79.4 Long term (current) use of insulin | CPT/HCPCS: 97802 ==

== ENCOUNTER 2024-11-17 08:53 | Outpatient (REF) | payer MEDICAID, SELFPAY ==
[2024-11-17 11:14] LABS: MANUAL DIFF FLAG NO
[2024-11-17 11:27] LABS: Basophils Percent Auto 0.2 % (0-2); Eosinophils Absolute Auto 0.2 X10*3/uL (0.0-0.4); Eosinophils Percent Auto 1.7 % (0-4); Hematocrit 42.1 % (37.0-47.0); Hemoglobin 13.7 g/dl (12.0-16.0); Imm Gran Abs Auto 0.03 X10*3/uL (0.00-0.03); Imm Gran Pct Auto 0.3 % (0.0-0.4); Lymphocytes Absolute Auto 2.9 X10*3/uL (1.2-4.9); Lymphocytes Percent Auto 33.6 % (20-40); Mean Corpuscular HGB Conc 32.5 g/dl (31.0-35.0); Mean Corpuscular Hemoglobin 26.6 pg (27.0-33.0); Mean Corpuscular Volume 81.7 fL (80.0-98.0); Mean Platelet Volume 11.8 fL (9.4-12.3); Monocytes Absolute Auto 0.5 X10*3/uL (0.1-1.2); Monocytes Percent Auto 5.2 % (2-11); Neutrophils Absolute Auto 5.1 x10*3/uL (2.0-8.3); Platelet Count 210 X10*3/uL (160-400); Red Blood Count 5.15 X10*6/uL (4.20-5.50); Red Cell Distribution Width 13.4 % (11.0-16.0); White Blood Count 8.6 X10*3/uL (4.8-10.8)
[2024-11-17 12:08] LABS: Alanine Aminotransferase 15 U/L (0-31); Alkaline Phosphatase 81 U/L (39-117); Anion Gap 12 (12-20); Aspartate Amino Transferase 20 U/L (5-31); Bilirubin Total 0.4 mg/dL (0.0-1.0); Blood Urea Nitrogen 14 mg/dL (9-16); C Reactive Protein 0.11 mg/dL (< or = 0.50); Calcium 9.7 mg/dL (8.4-10.2); Carbon Dioxide 25 mmol/L (22-29); Chloride 110 mmol/L (96-108); Estimated Glomerular Filt Rate > 60; Glucose Random 80 mg/dL (60-115); Potassium 4.2 mmol/L (3.3-5.1); Sodium 143 mmol/L (135-145); Total Protein 7.6 g/dL (6.5-8.0)
[2024-11-17 12:14] LABS: Erythrocyte Sedimentation Rate 12 MM/HR (0-20)
[2024-11-17 12:16] LABS: TSH reflex Free T4 0.31 uIU/mL (0.32-4.0)
[2024-11-17 12:51] LABS: Free T4 (Free Thyroxine) 0.92 ng/dL (0.71-1.85)
== END 2024-11-17 08:54 | disposition home or self-care (01) ==
LOC: HO.HHCL 08:53
PROVIDERS: Visit Provider Registered Nurse
DX: R63.4 Abnormal weight loss (principal)
CPT/HCPCS: 36415; 80053; 84439; 84443; 85025; 85652; 86140

== ENCOUNTER 2024-11-18 12:14 | Outpatient (AMB) | payer MEDICAID, SELFPAY ==
[2024-11-18 12:34] VITALS: BP 98/68; PULSE 81; O2SAT 96; BMI 36.7
--- NOTE | 2024-11-18 12:34 | A.OFFVIS_ITS ---
Vital Signs 11/18/24 12:34 Height 5 ft 2 in Weight 200 lb 9.93 oz BMI 36.7 BP 98/68 Blood Pressure Location Rt brachial Position Sitting Pulse 81 Pulse Source Pulse Oximeter Pulse Oximetry (%) 96 Oxygen Delivery Method Room Air Intake Visit Reasons: T2DM Intake Note: Patient presents today for a follow-up on Type 2 Diabetes Mellitus: Last Diabetic eye exam was on: 05/06/2024 Last Podiatry exam was on: Does not see a Information Systems Auditor Most recent HbA1c: 5.7%, 11/05/2024 Random Glucose- 71 mg/dL, 12:38 PM Re-checked- 133 mg/dL, Today 13:05 PM Advisory Intern Required: Yes Advisory Intern Language: Cognos Services: Advisory Intern Present Advisory Intern Name: RIVAS Galo/YOLANDE GONZALEZ Information Interpreted: non-clinical & clinical Accompanied by: PIPE TESTER Allergies mushroom Allergy (Verified 11/18/24 12:39) Anaphylaxis HPI Comments Details: 59 YO type 2 diabetes who is seen for follow up. [place] was last seen 11/05 A1c on 11/05/2024 5.7% , 6.3%. Diabetes medications had been reduced by PCP due to symptomatic hypoglycemia. Reports decreased appetite but still eating 3 small meals. Weight 12/2023 263 lb 05/06/24 222 lb 11/05/24 196 today 200 9 oz She had gastric lap band x2 in the past and repeat bariatric surgery a year ago. She is not seeing the bariatric surgeon back for f.u in quite some time. Glucose 71 in the clinic today and was given 15 carbohydrate g, repeat glucose see above She reports having daily symptomatic lows. She reports that 3 of her Mounjaro packets although they were unopened when she got them she claims she did not feel any liquid going in when she injected and 1 was spent prior to use. The patient has a abdominal striae and facial hair above the lip. She does report that she removes the rest of the excess facial hair. She reports she still has several periods per year and that her periods were always irregular. She does not remember ever being told she had PCOS. Was initially started on treatment with [metformin]. Tresiba 24 units, jardiance 10mg and metformin 1000mg bid were stopped secondary to low sugars. Current regimen:(chart had indicated 7.5mg but patient reports she was taking 5.0 mg) Mounjaro 5.0 mg weekly Dexcom average glucose: 121 14 day continuous glucose monitor report reviewed Glucose Managment indicator 6.2 % Days with CGM data [ ] % TIme in ranges: [ ] % very high (above 250) [ ] % high ?(181-250) 93 % in range ?(70-180] 0 % low (69-55) Less than 1 % ?very low (below 54) 26 Standard Deviation Interpretation [glucose readings running on average 30 points less than desired having daily symptomatic lows Treats lows with juice, fast carbs Has eyes checked yearly, last eye exam 05/2024 neuropathy: Some numbness no cramping last foot exam today, sees podiatry every 2 months nephropathy: eGFR 56 measured on 08/25. ARB microalbumin < 5.0 as measured on 12/2022. HLD, on statin. Last LDL 83 as measured on 09/14/2024. Denies CAD,PVD, CVA Denies chest pain, dyspnea or symptoms of claudication She reports she had an appointment to see the framing mill operator but had to cancel this. This has been rescheduled [facility] screen Fibrosis-4 (Fib-4) Index for liver fibrosis (calculated on lab work done: 01/23) [0.84 ] points Advanced fibrosis [excluded ] Approximate Fibrosis stage Nathaly [0-1] *Use with caution in patients <35 or >65 years old, as the score has been shown to be less reliable in these patients. Prior Imaging: Intervention: weight reduction and GLp-1 agonist Date of Service: 03/14/23 US/US abdomen comp w elastography IMPRESSION: 1. There is generalized increase in hepatic echotexture, consistent with fatty infiltration or hepatocellular disease. Please correlate clinically. Characteristic pericholecystic sparing favors fatty infiltration. No focal hepatic mass or intrahepatic biliary dilatation is seen. 2. There is hepatomegaly. 3. Liver elastography: Measurements are suggestive of compensated advanced chronic liver disease but need further test for confirmation. LIVER STIFFNESS THRESHOLDS: *Liver Stiffness equal or less than 1.3 m/s: High probability of being normal. *Liver Stiffness less than 1.7 m/s: In the absence of other known clinical signs, rules out compensated advanced chronic liver disease. *Liver Stiffness 1.7-2.1 m/s: Suggestive of compensated advanced chronic liver disease but need further test for confirmation. *Liver Stiffness over 2.1 m/s: Rules in compensated advanced chronic liver disease. *Liver Stiffness over 2.4 m/s: Suggestive of clinically significant portal hypertension. Diet: [1 egg for breakfast, often skips lunch, supper rice and beans] Weight: [down forty pounds since the beginning of the year] [Had] diabetes education 1 year ago [facility] Medical History (Updated 11/24/24 @ 07:32 by Cheryl An NP) Hypoglycemia Fatty liver Subclinical hyperthyroidism Seizures Vitamin D deficiency Chronic pain syndrome Spondylosis 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 myelopathy Disc degeneration, lumbar Hip osteoarthritis Sacroiliitis Illiterate Morbid obesity due to excess calories Diabetes mellitus type 2, controlled, without complications Essential hypertension Hyperlipidemia LDL goal <100 Panic attacks VELASQUEZ on CPAP History of tremor Gender dysphoria Anxiety Depression Asthma Epilepsy Hypertension Surgical History History of esophagogastroduodenoscopy (EGD) Hx of laparoscopic gastric banding Family History Father CVD (cardiovascular disease) Mother Hypertension Social History Household Members: Children and None Household Members Other:: 2 dogs Are you a primary before and after school daycare worker to a significant other at home: No Do you presently have visiting nurse or other home services: Yes Alcohol intake: former Patient Tobacco Use Status: Former Tobacco user Substance Use Type: Marijuana Physical Exam Vital Signs: Last Vital Signs Pulse 81 11/18/24 12:34 BP 98/68 11/18/24 12:34 Pulse Ox 96 11/18/24 12:34 Oxygen Delivery Method Room Air 11/18/24 12:34 BMI result Body Mass Index 36.7 Const Other: Absence of Cushingoid features. Absence of acromegalic features. Facial hair: dark over lip Neck exam reveals nl size thyroid about 15 gms. No thyroid nodules palpable. Heart S1 S2, Reg R/R. No M/R G. Skin exam reveals absence of vitiligo or acanthosis nigricans. has abdominal straie Results Reviewed Results Reviewed: Laboratory Last Values Glucose (Clinic) 133 mg/dL (60-115) H 11/18/24 13:05 Assessment & Plan Assessment & Plan (1) Diabetes mellitus type 2, controlled, without complications: Comment: IDDM Code(s): E11.9 - Type 2 diabetes mellitus without complications Category: Medical Qualifiers: Diabetes mellitus shelter insulin use: with computer terminal operator use Qualified Code(s): E11.9 - Type 2 diabetes mellitus without complications; Z79.4 - computer terminal operator (current) use of insulin Plan: 59-year-old type 2 diabetic with neuropathy and nephropathy status post bariatric surgery with current hypoglycemia. Patient is having daily symptomatic hypoglycemia and was advised to stop Mounjaro although she believes that this will cause additional lows. I reviewed with her that Mounjaro lowers the blood sugar and that in his it is essential that she stop which she was not pleased about. (2) Hypoglycemia: Code(s): E16.2 - Hypoglycemia, unspecified Category: Medical Plan: Recent onset most likely secondary to continued Mounjaro use and status post bariatric surgery. She was advised to stop Mounjaro. She was also advised to schedule a follow up appointment with her bariatric surgeon to have her labs post bariatric assessed. I discussed her case with Dr. Dean who recommended additional blood testing. We will discuss with him further in place lab orders and contact patient Orders: Referrals Gastroenterology Referral K76.0 - Fatty (change of) liver, not elsewhere classified Medications: Discontinued tirzepatide Discontinued Reason: Doctor's Order 7.5 mg (0.5 mL) subcut QWEEK 28 days 2 mL 11RF Coding Level of Care Code Est Pt Level 4 (05280) Complex EM visit Add On G2211 Diagnoses Controlled type 2 diabetes mellitus without complication, with long-term current use of insulin E11.9; Z79.4 Diabetes mellitus computer terminal operator insulin use: with shelter use Hypoglycemia E16.2 Time Spent (min) 30 Comment Time spent reviewing labs/provider notes, face to face, chart doc
[2024-11-18 12:47] LABS: Glucose, Whole Blood 71 mg/dL (60-115)
[2024-11-18 13:16] LABS: Glucose, Whole Blood 133 mg/dL (60-115)
== END 2024-11-18 16:03 | disposition home or self-care (01) ==
LOC: HO.ENCR 12:14
PROVIDERS: PCP Registered Nurse; Visit Provider Nurse Practitioner Adult Health
DX: E11.9 Type 2 diabetes mellitus without complications (principal); Z79.4 Long term (current) use of insulin; E16.2 Hypoglycemia, unspecified
CPT/HCPCS: 99214

== ENCOUNTER → 2024-11-18 12:14 | Outpatient (BNVA) | payer MEDICAID, SELFPAY | PROVIDERS: PCP Registered Nurse; Visit Provider Nurse Practitioner Adult Health | DX: E11.649 Type 2 diabetes mellitus with hypoglycemia without coma (principal); Z79.4 Long term (current) use of insulin | CPT/HCPCS: 82947; 99212 ==

== ENCOUNTER 2024-11-26 14:46 | Outpatient (AMB) | payer MEDICAID, SELFPAY ==
--- NOTE | 2024-11-26 15:46 | MHC.AMDMED ---
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: dm Natural Resources Technician Required: No Accompanied by: Other Relationship Allergies mushroom Allergy (Verified 11/18/24 12:39) Anaphylaxis HPI Comprehensive Diabetes Asmnt Most Recent Diabetes Results: Hemoglobin A1c 8.4 % 09/15/18 Microalb/Creat Ratio TNP 01/31/23 Cholesterol 146 mg/dL (<200) 09/14/24 HDL Cholesterol 39 mg/dL (>40) L 09/14/24 Triglycerides 123 mg/dL (<150) 09/14/24 Creatinine 0.91 mg/dL (0.5-1.4) 11/17/24 Blood Urea Nitrogen 14 mg/dL (9-16) 11/17/24 Sodium 143 mmol/L (135-145) 11/17/24 Potassium 4.2 mmol/L (3.3-5.1) 11/17/24 Chloride 110 mmol/L (96-108) H 11/17/24 Carbon Dioxide 25 mmol/L (22-29) 11/17/24 Calcium 9.7 mg/dL (8.4-10.2) 11/17/24 AST 20 U/L (5-31) 11/17/24 ALT 15 U/L (0-31) 11/17/24 Total Protein 7.6 g/dL (6.5-8.0) 11/17/24 Albumin 4.0 g/dL (3.5-5.0) 11/17/24 [facility] Medical History (Updated 11/24/24 @ 07:32 by Cheryl An NP) Hypoglycemia Fatty liver Subclinical hyperthyroidism Seizures Vitamin D deficiency Chronic pain syndrome Spondylosis 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 myelopathy Disc degeneration, lumbar Hip osteoarthritis Sacroiliitis Illiterate Morbid obesity due to excess calories Diabetes mellitus type 2, controlled, without complications Essential hypertension Hyperlipidemia LDL goal <100 Panic attacks VELASQUEZ on CPAP History of tremor Gender dysphoria Anxiety Depression Asthma Epilepsy Hypertension Surgical History History of esophagogastroduodenoscopy (EGD) Hx of laparoscopic gastric banding Family History Father CVD (cardiovascular disease) Mother Hypertension Social History Household Members: Children and None Household Members Other:: 2 dogs Are you a primary adult daycare coordinator to a significant other at home: No Do you presently have visiting nurse or other home services: Yes Alcohol intake: former Patient Tobacco Use Status: Former Tobacco user Substance Use Type: Marijuana Assessment & Plan Assessment & Plan (1) Diabetes mellitus type 2, controlled, without complications: Comment: IDDM Code(s): E11.9 - Type 2 diabetes mellitus without complications Qualifiers: Diabetes mellitus intermediate insulin use: with watermaster use Qualified Code(s): E11.9 - Type 2 diabetes mellitus without complications; Z79.4 - intermediate (current) use of insulin Plan: DIABETES PROBLEMS HOMECARE INSTRUCTIONS Patient continues to use Mounjaro 2.5 mg, did not bring Dexcom administrative clerk to today's visit so we were unable to review glucose numbers. But stated at today's visit that she is continuing to have low blood sugar Reviewed with patient the action of Mounjaro, patient is hesitant to stop Mounjaro because it reduces her appetite and she has recently been losing weight and and would like to continue with medication for it is appetite suppressant quality Hypo instructions ? When first signs of insulin reaction occur, immediately drink orange juice or cola, or suck on a sugar cube, but only if the person is conscious. ? Person with diabetes should continue taking insulin when ill, unless he/she is not able to eat.? Regularly check blood sugar or urine for sugar and acetone during illness. ? Exercise regularly. ? Pay special attention to the feet.? Avoid cuts, sores, blisters, ill-fitting shoes, or going barefoot.? Promptly treat injuries to the feet. ? Take medications as directed by physician. ? Drink extra water or noncaffeinated, nonsugared drinks to prevented hydration. Signs and symptoms of low blood sugar (happen quickly) Each person's reaction to low blood sugar is different. Learn your own signs and symptoms of when your blood sugar is low. Taking time to write these symptoms down may help you learn your own symptoms of when your blood sugar is low. From milder, more common indicators to most severe, signs and symptoms of low blood sugar include: Feeling shaky Being nervous or anxious Sweating, chills and clamminess Irritability or impatience Confusion Fast heartbeat Feeling lightheaded or dizzy Hunger Nausea Color draining from the skin (pallor) Feeling Sleepy Feeling weak or having no energy Blurred/impaired vision Tingling or numbness in the lips, tongue, or cheeks Headaches Coordination problems, clumsiness Hypoglycemia or blood glucose under 70mg/dL use the rule of 15's: If you have your blood glucose meter test your blood glucose, if you do not have your meter still follow below instruction: Keep quick-sugar foods with you at all times.? Take 15 grams of fast acting carbohydrates. Examples are 4 ounces of fruit juice or regular soda pop, 8 ounces fat-free milk, 1 tablespoon of table sugar, honey or corn syrup, jam, one miniature box of raisins, 7-8 gumdrops or Life Savers candy, 4 glucose tablets, and glucose gel.? Retest blood glucose in 15 minutes, if blood glucose is still under 80 mg/dL,repeat rule of 15's. If blood glucose is under 50, take 30 grams of fast acting carbohydrates If you are having hypoglycemia, or insulin reaction, more that a few times a week, call MD or breastfeeding educator F/U BG check Coding Level of Care Code Tele Est Pt Level 1 (95097) Diagnoses Controlled type 2 diabetes mellitus without complication, with long-term current use of insulin E11.9; Z79.4 Diabetes mellitus intermediate insulin use: with intermediate use
--- OUTSIDE RECORDS SUMMARY | 2024-11-26 18:26 | XMS_ITS | Encounter Summary ---
Demographics Address [address] [place] [address] Mobile Phone Work Phone Home Phone Preferred Language en Marital Status Single Scientologist Affiliation Unknown Race Other Race Ethnic Group or Author Organization [employer] Address [address] [facility] 7[address] [place] [address] Care Team Providers Care Hand Roller Name Role Phone [facility] Primary Care Provider [phone] Encounter Details Date Type Department Care Team [...] Care Team (Late st Contact Info) Description 12/16/2024 11:30 AM EDT Office Visit [facility] [address] [place] [phone] Ginger Perez [address] [address] 01/19/2025 1:30 PM EDT Clinical Support [address] [address] Frida Knapp, OZZY documented as of this encounter Visit Diagnoses Not on filedocumented in this encounter Additional Health Concerns Assessment Noted Time PHQ-9 Depression Total Score: 13 024 11:27 AM EDT documented as of this encounter Care Teams Hand Roller Relationship Specialty Start Date End Date Ginger Perez FNP [address] [place] [id number] PCP - General Family Medicine 08/13/22 [facility] [place] Care 11/01/22 documented as of this encounter
--- OUTSIDE RECORDS SUMMARY | 2024-11-26 18:26 | XMS_ITS | Encounter Summary ---
Author Organization [employer] Address [address] [facility] 7t [place] [address] Care Team Providers Care Pin Pusher Name Role Phone Ginger Perez [facility] Primary Care Provider [phone] Encounter Details Date Type Department Care Team (Late st Contact Info) Description 08/22/2022 Refill [facility] [address] [place], [place] [phone] Ginger Perez [facility] [address] [place], [place] [phone] Muscle spasm Social History Tobacco Use Types [...] Description 12/16/2024 11:30 AM EDT Office Visit [facility] [address] [place], [place] [phone] Ginger Perez FNP [address] [facility] [place] [address] 01/19/2025 1:30 PM EDT Clinical Support [facility] [address] [facility] [place] [address] Frida Knapp RN documented as of this encounter Visit Diagnoses Diagnosis Muscle spasm Spasm of muscle documented in this encounter Additional Health Concerns Assessment Noted Time PHQ-9 Depression Total Score: 9 08/21/20 22 10:14 AM EST documented as of this encounter Care Teams Pin Pusher Relationship Specialty Start Date End Date Mcalester GERALD Miles Manuela [facility] [place] [address] PCP - General Family Medicine 08/13/22 [facility] [place] 11[place]22 documented as of this encounter
--- OUTSIDE RECORDS SUMMARY | 2024-11-26 18:26 | XMS_ITS | Encounter Summary ---
Author Organization [employer] Address [address] [facility] 7[address] [place] [address] Care Team Providers Care Multimedia Coordinator Name Role Phone [place] Primary Care Provider [phone] Reason for Visit * Reason Onset Date Comments Recommend CARE CLINICIAN Tier 2 10/29/2024 Encounter Details Date Type Department Care Team ([facility] st Contact Info) Description 10/29/2024 Telephone [facility] [address] [place], [place] [phone] Frida Knapp, OZZY Recommend CARE CLINICIAN Tier 2 Social History Tobacco Use Types [...] RN - 10/29/2024 7:39 AM EST What CARE CLINICIAN Tier would you like this patient to be? I recommend Tier 2, please let me know if you agree or would rather patient be in another CARE CLINICIAN Tier. Tier 1 = HIGH RISK, Monthly CARE CLINICIAN visits Tier 2 = MODerate RISK, Q3 Month visits Tier 3 = LOW RISK = Q4-6 month visits Also, I have attempted to reach patients VLE multiple times ([facility]) for her Clonazepam count. [...] Description 12/16/2024 11:30 AM EDT Office Visit [facility] [address] [place] [phone] Ginger Perez FNP [address] [place] [address] 01/19/2025 1:30 PM EDT Clinical Support [address] [address] Frida Knapp, RN documented as of this encounter Visit Diagnoses Not on filedocumented in this encounter Additional Health Concerns Assessment Noted Time PHQ-9 Depression Total Score: 13 024 11:27 AM EDT documented as of this encounter Care Teams Multimedia Coordinator Relationship Specialty Start Date End Date Ginger Perez FNP [address] [place] [phone] PCP - General Family Medicine 08/13/22 [facility] [place] 11/[place]22 documented as of this encounter
--- OUTSIDE RECORDS SUMMARY | 2024-11-26 18:26 | XMS_ITS | Encounter Summary ---
Author Organization [employer] Address [address] [facility] 7t [place] [address] Care Team Providers Care Lighting Engineering Technician Name Role Phone [place] [facility] Primary Care Provider [phone] Encounter Details Date Type Department Care Team (Late st Contact Info) Description 11/11/2024 Orders Only [facility] [address] [place], [place] [phone] [place] [facility] [address] [place], [place] [phone] Weight loss, unintentional (Primary Dx); Other chronic pain Social History Tobacco Use Types Packs/Day Years [...] Description 12/16/2024 11:30 AM EDT Office Visit [facility] [address] [place] [phone] Ginger Perez FNP [address] [place] [address] 01/19/2025 1:30 PM EDT Clinical Support [address] [address] Frida Knapp, OZZY documented as of this encounter Visit Diagnoses Diagnosis Weight loss, unintentional- Primary Loss of weight Other chronic pain documented in this encounter Additional Health Concerns Assessment Noted Time PHQ-9 Depression Total Score: 13 024 11:27 AM EDT documented as of this encounter Care Teams Lighting Engineering Technician Relationship Specialty Start Date End Date Ginger Perez FNP [address] [place] [phone] PCP - General Family Medicine 08/13/22 [facility] [place]22 documented as of this encounter
--- OUTSIDE RECORDS SUMMARY | 2024-11-26 18:26 | XMS_ITS | Encounter Summary ---
Author Organization [employer] Address [address] [facility] 7t [place] [address] Care Team Providers Care Blasting Helper Name Role Phone Ana [facility] Primary Care Provider [phone] Encounter Details Date Type Department Care Team (Late st Contact Info) Description 11/09/2024 Orders Only [facility] [address] [place], [place] [phone] [place] [facility] 230 [place], [place] [phone] Weight loss (Primary Dx) Social History Tobacco [...] 11:30 AM EDT Office Visit [facility] [address] [place] [address] [place], Ginger, [address] [address] 01/19/2025 1:30 PM EDT Clinical Support [address] [address] Frida Knapp RN documented as of this encounter Procedures Procedure Name Priority Date/Time Associated Diagnosis Comments TSH W/REFLEX TO FT4 Routine 11/17/2024 8 :55 AM EDT Weight loss CBC WITH AUTO DIFFERENTIAL Routine 11/17/2024 8:55 AM EDT Weight loss SED RATE BY MODIFIED WESTERGREN Routine 11/17/2024 8:55 AM EDT Weight loss C-REACTIVE PROTEIN Routine 11/17/2024 8: 55 AM EDT Weight loss COMPREHENSIVE METABOLIC PANEL Routine 11/17/2024 8:55 AM EDT Weight loss documented in this encounter Results * (ABNORMAL) TSH W/Reflex to FT4 (11/17/2024 8:55 AM EDT) TSH reflex Free T4 0.31(L) 0.32 - 4.0 uIU/mL [facility] Blood Venous blood specimen / Unknown 11/17/2024 8:55 AM EDT 11/17/2024 11:09 AM EDT [facility] LAB BLOOD ORDERABLES Final Re sult Performing Organization Address [facility] Co de Phone Number [facility] [address] [place] [phone] * C-reactive Protein (11/17/2024 8:55 AM EDT) C Reactive Protein 0.11 < or = 0.50 mg/dL [facility] Blood Venous blood specimen / Unknown 11/17/2024 8:55 AM EDT 11/17/2024 11:09 AM EDT [facility] LAB BLOOD ORDERABLES Final Re sult Performing Organization Address [facility] de Phone Number [facility] [address] [place] [phone] * Sed Rate by Modified Kendyren (11/17/2024 8:55 AM EDT) Erythrocyte Sedimentation Rate 12 0 - 20 MM/HR [facility] Comment:Patients with polycy themia and many hemoglobin abnormalitiesmay have depressed sed rates whereas patients with anemiamay have elevated sed rates. Blood Venous blood specimen / Unknown 11/17/2024 8:55 AM EDT 11/17/2024 11:09 AM EDT [facility] LAB BLOOD ORDERABLES Final Re sult Performing Organization Address [facility]/ZIP Co de Phone Number [facility] [address] [place] [address] [phone] * (ABNORMAL) Comprehensive Metabolic Panel (11/17/2024 8:55 AM EDT) Sodium 143 135 - 145 mmol/L [facility] Potassium 4.2 3.3 - 5.1 mmol/L [facility] Chloride 110(H) 96 - 108 mmol/L [facility] Carbon Dioxide 25 22 - 29 mmol/L [facility] Anion Gap 12 12 - 20 [facility] Urea Nitrogen (BUN) 14 9 - 16 mg/dL [facility] Creatinine, Serum 0.91 0.5 - 1.4 mg/dL [facility] Estimated Glomerular Filt Rate >60 [facility] Comment:Chronic Kidney Disea se: Estimated GFR < 60 mL/min/1.89q9Dkmtky Kidney Disease: Estimated GFR < 15 mL/min/1.73m2 Glucose 80 60 - 115 mg/dL [facility] Calcium 9.7 8.4 - 10.2 mg/dL [facility] Bilirubin, Total 0.4 0.0 - 1.0 mg/dL [facility] Aspartate Amino Transferase 20 5 - 31 U/L [facility] Alanine Aminotransferase 15 0 - 31 U/L [facility] Total Protein 7.6 6.5 - 8.0 g/dL [facility] Albumin Level 4.0 3.5 - 5.0 g/dL [facility] Alkaline Phosphatase 81 39 - 117 U/L [facility] Blood Venous blood specimen / Unknown 11/17/2024 8:55 AM EDT 11/17/2024 11:09 AM EDT [facility] LAB BLOOD ORDERABLES Final Re sult Performing Organization Address City/[facility]/ZIP Co de Phone Number [facility] [address] [place] [address] [phone] * (ABNORMAL) CBC auto differential (11/17/2024 8:55 AM EDT) White Blood Count 8.6 4.8 - 10.8 X10*3/uL [facility] Red Blood Count 5.15 4.20 - 5.50 X10*6/uL [facility] Hemoglobin 13.7 12.0 - 16.0 g/dl [facility] Hematocrit 42.1 37.0 - 47.0 % [facility] Mean Corpuscular Volume 81.7 80.0 - 98.0 fL [facility] Mean Corpuscular Hemoglobin 26.6(L) 27.0 - 33.0 pg [facility] Mean Corpuscular HGB Conc 32.5 31.0 - 35.0 g/dl [facility] Red Cell Distribution Width 13.4 11.0 - 16.0 % [facility] Platelet Count 210 160 - 400 X10*3/uL [facility] Mean Platelet Volume 11.8 9.4 - 12.3 fL [facility] Neutrophils Percent Auto 59.0 45 - 73 % [facility] Imm Gran Pct Auto 0.3 0.0 - 0.4 % [facility] Lymphocytes Percent Auto 33.6 20 - 40 % [facility] Monocytes Percent Auto 5.2 2 - 11 % [facility] Eosinophils Percent Auto 1.7 0 - 4 % [facility] Basophils Percent Auto 0.2 0 - 2 % [facility] NRBC Pct Auto 0.0 0.0 - 0.2 /100WBC [facility] Neutrophils Absolute Auto 5.1 2.0 - 8.3 x10*3/uL [facility] Imm Gran Abs Auto 0.03 0.00 - 0.03 X10*3/uL [facility] Lymphocytes Absolute Auto 2.9 1.2 - 4.9 X10*3/uL [facility] Monocytes Absolute Auto 0.5 0.1 - 1.2 X10*3/uL [facility] Eosinophils Absolute Auto 0.2 0.0 - 0.4 X10*3/uL [facility] Basophils Absolute Auto 0.0 0.0 - 0.2 X10*3/uL [facility] NRBC Abs Auto 0.000 0.0 - 0.012 X10*3/uL [facility] Blood Venous blood specimen / Unknown 11/17/2024 8:55 AM EDT 11/17/2024 11:09 AM EDT [facility] LAB BLOOD ORDERABLES Final Re sult [facility] [address] [place] [address] [phone] documented in this encounter Visit Diagnoses Diagnosis Weight loss- Primary Loss of weight documented in this encounter Additional Health Concerns Assessment Noted Time PHQ-9 Depression Total Score: 13 024 11:27 AM EDT documented as of this encounter Care Teams Blasting Helper Relationship Specialty Start Date End Date AnaGinger canales FNP [address] [place] [address] PCP - General Family Medicine 08/13/22 [facility] Home Care 11/01/22 documented as of this encounter
--- OUTSIDE RECORDS SUMMARY | 2024-11-26 18:26 | XMS_ITS | Encounter Summary ---
Demographics Address [address] [place] [address] Mobile Phone Work Phone Home Phone Preferred Language en Marital Status Single Anabaptist Affiliation Unknown Race Other Race Ethnic Group or Author Organization [employer] Address [address] [facility] 7t [place] [address] Care Team Providers Care Carbon Furnace Operator Helper Name Role Phone [facility] Primary Care Provider [phone] Encounter Details Date Type Department Care Team (Late st Contact Info) Description 11/18/2024 Orders Only GENERIC EXTERNAL DATA DEPARTMENT Provider, [...] Description 12/16/2024 11:30 AM EDT Office Visit [address] [address] [place]inger, [address] [address] 01/19/2025 1:30 PM EDT Clinical Support [address] [address] Frida Knapp RN documented as of this encounter Procedures Procedure Name Priority Date/Time Associated Diagnosis Comments GLUCOSE, WHOLE BLOOD Routine 11/18/2024 1:05 PM EDT GLUCOSE, WHOLE BLOOD Routine 11/18/2024 12:38 PM EDT documented in this encounter Results * (ABNORMAL) Glucose, Whole Blood (11/18/2024 1:05 PM EDT) Glucose, Whole Blood 133(H) 60 - 115 mg/dL [facility] Comment:METER #: [id number] 5Testing performed in the Endocrinology Department [address] , [address], [facility]. 11/18/2024 1:05 PM EDT 11/18/2024 1:15 PM EDT us Generic External Data Provider LAB BLOOD ORDERAB LES Final Result Performing Organization Address City/[facility]/ZIP Co de Phone Number [facility] [address] [place] [address] [phone] * Glucose, Whole Blood (11/18/2024 12:38 PM EDT) Glucose, Whole Blood 71 60 - 115 mg/dL [facility] Comment:METER #: [id number] 5Testing performed in the Endocrinology Department [address] , [address], [facility]. 11/18/2024 12:3 8 PM EDT 11/18/2024 12:46 PM EDT us Generic External Data Provider LAB BLOOD ORDERAB LES Final Result Performing Organization Address [facility] Co de Phone Number [facility] [address] [place] [address] [phone] documented in this encounter Visit Diagnoses Not on filedocumented in this encounter Additional Health Concerns Assessment Noted Time PHQ-9 Depression Total Score: 13 024 11:27 AM EDT documented as of this encounter Care Teams Carbon Furnace Operator Helper Relationship Specialty Start Date End Date Ginger Perez FNP [address] [place] [address] PCP - General Family Medicine 08/13/22 [facility] Home Care 11/01/22 documented as of this encounter
--- OUTSIDE RECORDS SUMMARY | 2024-11-26 18:26 | XMS_ITS | Encounter Summary ---
Author Organization [employer] Address [address] [facility] 7t [place] [address] Care Team Providers Care Reporting Analyst Name Role Phone [facility] Primary Care Provider [phone] Reason for Visit * Reason Onset Date Comments Nurse Triage 08/18/2024 Encounter Details Date Type Department Care Team ([facility] st Contact Info) Description 08/18/2024 Telephone [facility] 230 [place], [place] [phone] [facility] 230 [place], [place] [phone] Nurse Triage Social History Tobacco Use Types [...] AM EST Tc from pt returning call [phone] * Telephone Encounter - Francie Au RN - 08/18/2024 11:47 AM EST Triage call Pt reports abnormal vaginal bleeding which has been occurring for last several months. Pt reports spotting started yesterday and usually this is gone in a day. This time it is the second day of this spotting and drainage is black in color. Pt denies any other symptoms. Pt reports LIBRARY PARAPROFESSIONAL advised to call to see provider. ASK [...] Description 12/16/2024 11:30 AM EDT Office Visit [address] [address] Ginger Perez FNP [address] [place] [address] 01/19/2025 1:30 PM EDT Clinical Support [address] [address] A[place], Frida, RN documented as of this encounter Visit Diagnoses Not on filedocumented in this encounter Additional Health Concerns Assessment Noted Time PHQ-9 Depression Total Score: 13 024 11:27 AM EDT documented as of this encounter Care Teams Reporting Analyst Relationship Specialty Start Date End Date Ginger Perez FNP [address] [place] [address] PCP - General Family Medicine 08/13/22 [facility] 11/01/22 documented as of this encounter
--- OUTSIDE RECORDS SUMMARY | 2024-11-26 18:26 | XMS_ITS | Encounter Summary ---
Author Organization [employer] Address [address] [facility] 7t [place] [address] Care Team Providers Care Watch Manufacturing Supervisor Name Role Phone [place] [facility] Primary Care Provider [phone] Reason for Visit * Reason Onset Date Comments Med Refill 10/29/2024 Encounter Details Date Type Department Care Team (Late st Contact Info) Description 10/29/2024 Refill [facility] 230 [place], [place] [phone] Frida Knapp RN Low back pain at [...] - 10/29/2024 2:07 PM EST Pt had PHOTOGRAPHIC INTELLIGENCE OFFICER Initial appt today GIA score of 13. Opioid Risk score of 14. UTOX was Neg BZO, sent out for confirmation. documented in this encounter Plan of Treatment Upcoming Encounters Date Type Department Care Team (Late st Contact Info) Description 12/16/2024 11:30 AM EDT Office Visit [facility] [address] [place] [address] RutlandGinger FNP 230 [place] [address] 01/19/2025 1:30 PM EDT Clinical Support [facility] [address] [place] [address] Frida Knapp, RN documented as of this encounter Visit Diagnoses Diagnosis Low back pain at multiple sites- Primary documented in this encounter Additional Health Concerns Assessment Noted Time PHQ-9 Depression Total Score: 13 024 11:27 AM EDT documented as of this encounter Care Teams Watch Manufacturing Supervisor Relationship Specialty Start Date End Date RutlandGingerGERALD 230 [place] [address] PCP - General Family Medicine 08/13/22 [facility] Home Care 11/01/22 documented as of this encounter
--- OUTSIDE RECORDS SUMMARY | 2024-11-26 18:26 | XMS_ITS | Encounter Summary ---
Author Organization [employer] Address [address] [facility] 7t [place] [address] Care Team Providers Care Tobacco Scrap Sifter Name Role Phone [facility] Primary Care Provider [phone] Reason for Visit * Reason Comments Med Refill Encounter Details Date Type Department Care Team ([facility] st Contact Info) Description 11/22/2023 Refill [facility] 230 [place], [place] [phone] [facility] 230 [place], [place] [phone] Type 2 diabetes mellitus with hyperglycemia, with long-term current use of insulin ([facility]) Social History Tobacco Use Types Packs/Day [...] the past 12 months, has t he [employer], gas, oil or water company threatened to [...] Description 12/16/2024 11:30 AM EDT Office Visit [address] [address] Ginger Perez FNP [address] [place] [address] 01/19/2025 1:30 PM EDT Clinical Support [address] [address] Frida Knapp RN documented as of this encounter Visit Diagnoses Diagnosis Type 2 diabetes mellitus with hyperglycemia, with long-term current use of insulin ([facility]) documented in this encounter Additional Health Concerns Assessment Noted Time PHQ-9 Depression Total Score: 0 11/13/19 24 3:08 PM EDT documented as of this encounter Care Teams Tobacco Scrap Sifter Relationship Specialty Start Date End Date Ginger Perez FNP [address] [place] [address] PCP - General Family Medicine 08/13/22 [facility] Home Care 11/01/22 documented as of this encounter
--- OUTSIDE RECORDS SUMMARY | 2024-11-26 18:26 | XMS_ITS | Encounter Summary ---
Author Organization [employer] Address [address] [facility] 7t [place] [address] Care Team Providers Care Corporate Attorney Name Role Phone [facility] Primary Care Provider [phone] Reason for Visit * Reason Comments Med Refill Encounter Details Date Type Department Care Team ([facility] st Contact Info) Description 11/11/2024 Refill [facility] 230 [place], [place] [phone] Roma Man MD 230 [place], [place] [phone] Mixed anxiety and depressive disorder Social History [...] Description 12/16/2024 11:30 AM EDT Office Visit [facility] [address] [place] [address] Ginger Perez FNP 230 [place] [address] 01/19/2025 1:30 PM EDT Clinical Support [address] [address] Frida Knapp RN documented as of this encounter Visit Diagnoses Diagnosis Mixed anxiety and depressive disorder Dysthymic disorder documented in this encounter Additional Health Concerns Assessment Noted Time PHQ-9 Depression Total Score: 13 024 11:27 AM EDT documented as of this encounter Care Teams Corporate Attorney Relationship Specialty Start Date End Date Ginger Perez FNP [address] [place] [address] PCP - General Family Medicine 08/13/22 [facility] [place] 11/01/22 documented as of this encounter
--- OUTSIDE RECORDS SUMMARY | 2024-11-26 18:26 | XMS_ITS | Encounter Summary ---
Author Organization [employer] Address [address] [facility] 7t [place] [address] Care Team Providers Care Equipment Sales Specialist Name Role Phone [place] [facility] Primary Care Provider [phone] Reason for Visit * Reason Onset Date Comments Error (VOID this visit) 11/02/2024 Encounter Details Date Type Department Care Team ([facility] st Contact Info) Description 11/02/2024 Telephone [facility] 230 [place], [place] [phone] Frida Knapp RN Error (VOID this visit) [...] Description 12/16/2024 11:30 AM EDT Office Visit [address] [address] EpesGinger [facility] 230 [place] [address] 01/19/2025 1:30 PM EDT Clinical Support [address] [address] Frida Knapp, OZZY documented as of this encounter Visit Diagnoses Not on filedocumented in this encounter Additional Health Concerns Assessment Noted Time PHQ-9 Depression Total Score: 13 024 11:27 AM EDT documented as of this encounter Care Teams Equipment Sales Specialist Relationship Specialty Start Date End Date Ginger Perez FNP [address] [place] [address] PCP - General Family Medicine 08/13/22 [facility] [place] Care 11/01/22 documented as of this encounter
--- OUTSIDE RECORDS SUMMARY | 2024-11-26 18:26 | XMS_ITS | Encounter Summary ---
Author Organization [employer] Address [address] [facility] [address] [place] [address] Care Team Providers Care Welding Machine Operator Helper Arc Name Role Phone [facility] Primary Care Provider [phone] Reason for Visit * Reason Onset Date Comments Lab Orders 11/10/2024 Encounter Details Date Type Department Care Team ([facility] st Contact Info) Description 11/10/2024 Telephone [facility] 230 [place], [place] [phone] [facility] 230 [place], [place] [phone] Lab Orders Social History Tobacco Use Types [...] it was ever done. Can you check Crzyfish? Pt states he has an upcoming appt with his diabetes doctor next week . Pt was reminded of his upcoming televisit with the pharmacist on 11/13/24 , and his upcoming PCP appt on 12/16/24 . Pt states he will go to the lab tomorrow to have his labs drawn . Pt states they feel they had the Colonoscopy at [facility] . Will check both systems for the results . There are no results in the [facility] system for the pt's colonoscopy . Pt does not have a colonoscopy result in the [facility] system either . Pt is concerned as they stated they received a letter from the sleep apnea machine [employer] stating that the insurance will no longer [...] Description 12/16/2024 11:30 AM EDT Office Visit [address] [address] Ginger Perez FNP [address] [place] [address] 01/19/2025 1:30 PM EDT Clinical Support [address] [address] Frida Knapp RN documented as of this encounter Visit Diagnoses Not on filedocumented in this encounter Additional Health Concerns Assessment Noted Time PHQ-9 Depression Total Score: 13 024 11:27 AM EDT documented as of this encounter Care Teams Welding Machine Operator Helper Arc Relationship Specialty Start Date End Date Ginger Perez FNP [address] [place] [address] PCP - General Family Medicine 08/13/22 [facility] Care 11/01/22 documented as of this encounter
--- OUTSIDE RECORDS SUMMARY | 2024-11-26 18:26 | XMS_ITS | Encounter Summary ---
Author Organization [employer] Address [address] [facility] 7[address] [place] [address] Care Team Providers Care Rpg Programmer Analyst Name Role Phone [facility] Primary Care Provider [phone] Reason for Visit * Reason Onset Date Comments Medication Question 11/12/2024 Med Refill 11/12/2024 Encounter Details Date Type Department Care Team ([facility] st Contact Info) Description 11/12/2024 Telephone [facility] 230 [place], [place] [phone] [facility] 230 [place], [place] [phone] Medication Question; Med Refill Social History Tobacco Use Types Packs/Day Years [...] the past 12 months, has t he [employer], gas, oil or water [employer] threatened to shut off services in your [...] encounter Miscellaneous Notes * Telephone Encounter - Jazzmine Dukes - 11/12/2024 3:19 PM EDT Tc from pt regarding Lidocaid Patch and Clonazepam. Brake Repairer advised pt med refill request was sent yesterday. documented in this encounter Plan of Treatment Upcoming Encounters Date Type Department Care Team (Late st Contact Info) Description 12/16/2024 11:30 AM EDT Office Visit [facility] [address] [place] [address] [place] Ginger, [facility] 230 [place] [address] 01/19/2025 1:30 PM EDT Clinical Support [facility] [address] [place] [address] Frida Knapp RN documented as of this encounter Visit Diagnoses Not on filedocumented in this encounter Additional Health Concerns Assessment Noted Time PHQ-9 Depression Total Score: 13 024 11:27 AM EDT documented as of this encounter Care Teams Rpg Programmer Analyst Relationship Specialty Start Date End Date Ginger Perez GERALD 230 [place] [address] PCP - General Family Medicine 08/13/22 [facility] [place] Care 11/01/22 documented as of this encounter
--- OUTSIDE RECORDS SUMMARY | 2024-11-26 18:26 | XMS_ITS | Encounter Summary ---
Author Organization [employer] Address [address] [facility] 7t [place] [address] Care Team Providers Care Electrical And Instrumentation Manager Name Role Phone [facility] Primary Care Provider [phone] Reason for Visit * Reason Onset Date Comments Clonazepam count 10/30/2024 Encounter Details Date Type Department Care Team ([facility] st Contact Info) Description 10/30/2024 Telephone [facility] 230 [place], [place] [phone] Frida Knapp, OZZY Clonazepam count Social History [...] daytime nurse today about and call this specification writer back with the information. documented in this encounter Plan of Treatment Upcoming Encounters Date Type Department Care Team (Late st Contact Info) Description 12/16/2024 11:30 AM EDT Office Visit [facility] [address] [place] [address] Ginger Perez FNP 230 [place] [address] 01/19/2025 1:30 PM EDT Clinical Support [facility] [address] [place] [address] Frida Knapp RN documented as of this encounter Visit Diagnoses Not on filedocumented in this encounter Additional Health Concerns Assessment Noted Time PHQ-9 Depression Total Score: 13 024 11:27 AM EDT documented as of this encounter Care Teams Electrical And Instrumentation Manager Relationship Specialty Start Date End Date Ginger Perez FNP 230 [place] [address] PCP - General Family Medicine 08/13/22 [facility] Home Care 11/01/22 documented as of this encounter
--- OUTSIDE RECORDS SUMMARY | 2024-11-26 18:26 | XMS_ITS | Encounter Summary ---
Author Organization [employer] Address 75 [facility] 7t [place] [address] Care Team Providers Care Manager Fashion Name Role Phone [facility] Primary Care Provider [phone] Reason for Visit * Reason Onset Date Comments Nurse Triage 10/07/2023 Encounter Details Date Type Department Care Team ([facility] st Contact Info) Description 10/07/2023 Telephone [facility] 230 [place], [place] [phone] [facility] 230 [place], [place] [phone] Nurse Triage Social History Tobacco Use Types [...] still having kidney pain . Patient speaks Divehi. Advised triage nurse will call patient back. documented in this encounter Plan of Treatment Upcoming Encounters Date Type Department Care Team (Late st Contact Info) Description 12/16/2024 11:30 AM EDT Office Visit [address] [address] Ginger Perez FNP [address] [place] [address] 01/19/2025 1:30 PM EDT Clinical Support [address] [address] Frida Knapp RN documented as of this encounter Visit Diagnoses Not on filedocumented in this encounter Additional Health Concerns Assessment Noted Time PHQ-9 Depression Total Score: 0 10/03/19 24 10:12 AM EST documented as of this encounter Care Teams Manager Fashion Relationship Specialty Start Date End Date Ginger Perez FNP [address] [place] [address] PCP - General Family Medicine 08/13/22 [facility] [place] [facility] 11/01/22 documented as of this encounter
--- OUTSIDE RECORDS SUMMARY | 2024-11-26 18:26 | XMS_ITS | Encounter Summary ---
Author Organization [employer] Address 75 [facility] 7t [place] [address] Care Team Providers Care Start Up Specialist Name Role Phone [facility] Primary Care Provider [phone] Reason for Visit * Reason Onset Date Comments Durable Medical Equipment 12/18/2022 Encounter Details Date Type Department Care Team ([facility] st Contact Info) Description 12/18/2022 Telephone [facility] MEDICINE 230 [place], [place] [phone] [facility] 230 [place] [address] Durable Medical Equipment Social History Tobacco Use [...] 2:22 PM EDT Tc from sarah from [facility] requesting a new nebulizer machine . States pt informed old one stopped working . documented in this encounter Plan of Treatment Upcoming Encounters Date Type Department Care Team (Late st Contact Info) Description 12/16/2024 11:30 AM EDT Office Visit [address] [address] Ginger Perez FNP 230 [place] [address] 01/19/2025 1:30 PM EDT Clinical Support [address] [address] Frida Knapp, RN documented as of this encounter Visit Diagnoses Not on filedocumented in this encounter Additional Health Concerns Assessment Noted Time PHQ-9 Depression Total Score: 0 12/12/19 23 3:58 PM EDT documented as of this encounter Care Teams Start Up Specialist Relationship Specialty Start Date End Date Ginger Perez FNP 230 [place] [address] PCP - General Family Medicine 08/13/22 [facility] [place] Care 11/01/22 documented as of this encounter
--- OUTSIDE RECORDS SUMMARY | 2024-11-26 18:26 | XMS_ITS | Encounter Summary ---
Author Organization [employer] Address 75 [facility] 7t [place] [address] Care Team Providers Care Bookstore Manager Name Role Phone [facility] Primary Care Provider [phone] Encounter Details Date Type Department Care Team ([facility] st Contact Info) Description 11/17/2024 Orders Only [facility] MEDICINE 230 [place], [place] [phone] [facility] 230 [place], [place] [phone] Social History Tobacco Use Types Packs/Day Years [...] Description 12/16/2024 11:30 AM EDT Office Visit [facility] [address] [place] [address] [address] 01/19/2025 1:30 PM EDT Clinical Support [address] [address] Frida Knapp RN documented as of this encounter Procedures Procedure Name Priority Date/Time Associated Diagnosis Comments T4, FREE Routine 11/17/2024 8:55 AM EDT documented in this encounter Results * T4, Free (11/17/2024 8:55 AM EDT) Free T4 (Free Thyroxine) 0.92 0.71 - 1.85 ng/dL [facility] 11/17/2024 8:55 AM EDT 11/17/2024 11:09 AM EDT [facility] LAB BLOOD ORDERABLES Final Re sult [facility] [address] [place] [address] [phone] documented in this encounter Visit Diagnoses Not on filedocumented in this encounter Additional Health Concerns Assessment Noted Time PHQ-9 Depression Total Score: 13 024 11:27 AM EDT documented as of this encounter Care Teams Bookstore Manager Relationship Specialty Start Date End Date Ginger Perez FNP [address] [place] [address] PCP - General Family Medicine 08/13/22 [facility] Home Care 11/01/22 documented as of this encounter
--- OUTSIDE RECORDS SUMMARY | 2024-11-26 18:26 | XMS_ITS | Encounter Summary ---
Author Organization [employer] Address 75 [facility] 7[place] [address] Care Team Providers Care Patternmaker Hand Name Role Phone [facility] Primary Care Provider [phone] Reason for Visit * Reason Onset Date Comments Durable Medical Equipment 12/18/2022 Encounter Details Date Type Department Care Team ([facility] st Contact Info) Description 12/18/2022 Telephone [facility] MEDICINE 230 [place], [place] [phone] [facility] 230 [place] [address] Durable Medical Equipment Social History Tobacco Use [...] the largest size for disposable bed pads. Iuss Master Analyst suggested a script for reusable bed pads [...] Description 12/16/2024 11:30 AM EDT Office Visit [facility]INE [address] [place] [address] Ginger Perez FNP 230 [place] [address] 01/19/2025 1:30 PM EDT Clinical Support [address] [address] Frida Knapp RN documented as of this encounter Visit Diagnoses Not on filedocumented in this encounter Additional Health Concerns Assessment Noted Time PHQ-9 Depression Total Score: 0 12/12/19 3:58 PM EDT documented as of this encounter Care Teams Patternmaker Hand Relationship Specialty Start Date End Date Ginger Perez FNP [address] [place] [address] PCP - General Family Medicine 08/13/22 [facility] Home Care 11/01/22 documented as of this encounter
--- OUTSIDE RECORDS SUMMARY | 2024-11-26 18:26 | XMS_ITS | Encounter Summary ---
Author Organization [employer] Address 75 [facility] 7t [place] [address] Care Team Providers Care Veterinary Nurse Name Role Phone [facility] Primary Care Provider [phone] Reason for Visit * Reason Onset Date Comments Durable Medical Equipment 11/12/2024 Encounter Details Date Type Department Care Team ([facility] st Contact Info) Description 11/12/2024 Telephone [facility] 230 [place], [place] [phone] [facility] 230 [place], [place] [phone] Durable Medical Equipment Social History Tobacco Use [...] Telephone Encounter - Jazzmine Dukes - 11/12/2024 2:57 PM EDT Tc from pt stating received two boxes of vanilla ensure and normally she received four boxes. documented in this encounter Plan of Treatment Upcoming Encounters Date Type Department Care Team (Late st Contact Info) Description 12/16/2024 11:30 AM EDT Office Visit [facility] MED[facility]INE [address] [place] [address] Ginger Perez FNP 230 [place] [address] 01/19/2025 1:30 PM EDT Clinical Support [address] [address] Frida Knapp RN documented as of this encounter Visit Diagnoses Not on filedocumented in this encounter Additional Health Concerns Assessment Noted Time PHQ-9 Depression Total Score: 13 024 11:27 AM EDT documented as of this encounter Care Teams Veterinary Nurse Relationship Specialty Start Date End Date Ginger Perez FNP 230 [place] [address] PCP - General Family Medicine 08/13/22 [facility] [place] 11/01/22 documented as of this encounter
--- OUTSIDE RECORDS SUMMARY | 2024-11-26 18:26 | XMS_ITS | Encounter Summary ---
Author Organization [employer] Address 75 [facility] 7t [place] [address] Care Team Providers Care Morning News Anchor Name Role Phone [facility] [facility] Primary Care Provider [phone] Encounter Details Date Type Department Care Team ([facility] st Contact Info) Description 12/20/2022 Telephone [facility] MED[facility]INE 230 [place], [place] [phone] [facility] 230 [place], [place] [phone] Social History Tobacco Use Types Packs/Day Years [...] - 12/20/2022 4:16 PM EDT Tc from [facility] requesting status on orders that needed to be sign by PCP on oct Please contact isci at [phone] documented in this encounter Plan of Treatment Upcoming Encounters Date Type Department Care Team ([facility] st Contact Info) Description 12/16/2024 11:30 AM EDT Office Visit [facility] 230 [place] [address] Ginger Perez FNP 230 [place] [address] 01/19/2025 1:30 PM EDT Clinical Support [facility] 230 [place] [address] Frida Knapp RN documented as of this encounter Visit Diagnoses Not on filedocumented in this encounter Additional Health Concerns Assessment Noted Time PHQ-9 Depression Total Score: 0 12/12/19 3:58 PM EDT documented as of this encounter Care Teams Morning News Anchor Relationship Specialty Start Date End Date Ginger Perez FNP [address] [place] [address] PCP - General Family Medicine 08/13/22 [facility] [place] [facility] [place] [facility] 11/01/22 documented as of this encounter
--- OUTSIDE RECORDS SUMMARY | 2024-11-26 18:27 | XMS_ITS | Encounter Summary ---
Author Organization [employer] Address 75 [facility] 7t [place] [address] Care Team Providers Care Computer Forwarding System Markup Clerk Name Role Phone [facility] Primary Care Provider [phone] Reason for Visit * Reason Onset Date Comments Referral 07/19/2023 Encounter Details Date Type Department Care Team ([facility] st Contact Info) Description 07/19/2023 Telephone [facility] 230 [place], [place] [phone] [facility] 230 [place], [place] [phone] Referral Social History Tobacco Use Types Packs/Day [...] 10:29 AM EST Tc from sarah with [facility] states [facility] has not received referral. Also requesting for referral to be sent to a different location due to no availability. Any questions, contact sarah at [phone] documented in this encounter Plan of Treatment Upcoming Encounters Date Type Department Care Team (Late st Contact Info) Description 12/16/2024 11:30 AM EDT Office Visit [address] [address] Ginger Perez FNP 230 [place] [address] 01/19/2025 1:30 PM EDT Clinical Support [address] [address] Frida Knapp, OZZY documented as of this encounter Visit Diagnoses Not on filedocumented in this encounter Additional Health Concerns Assessment Noted Time PHQ-9 Depression Total Score: 16 023 9:09 AM EDT documented as of this encounter Care Teams Computer Forwarding System Markup Clerk Relationship Specialty Start Date End Date Ginger Perez FNP [address] [place] [address] PCP - General Family Medicine 08/13/22 [facility] Home Care 11/01/22 documented as of this encounter
--- OUTSIDE RECORDS SUMMARY | 2024-11-26 18:27 | XMS_ITS | Encounter Summary ---
Author Organization [employer] Address 75 [facility] 7t [place] [address] Care Team Providers Care Bending Shed Worker Name Role Phone [facility] Primary Care Provider [phone] Reason for Visit * Reason Comments Med Refill Encounter Details Date Type Department Care Team ([facility] st Contact Info) Description 05/22/2024 Refill [facility] 230 [place], [place] [phone] Roma Man MD 230 [place] [address] Onychomycosis Social History Tobacco Use Types Packs/Day [...] Description 12/16/2024 11:30 AM EDT Office Visit [address] [address] Ginger Perez FNP 230 [place] [address] 01/19/2025 1:30 PM EDT Clinical Support [address] [address] Frida Knapp RN documented as of this encounter Visit Diagnoses Diagnosis Onychomycosis Dermatophytosis of nail documented in this encounter Additional Health Concerns Assessment Noted Time PHQ-9 Depression Total Score: 13 024 11:27 AM EDT documented as of this encounter Care Teams Bending Shed Worker Relationship Specialty Start Date End Date Ginger ePrez FNP 230 [place] [address] PCP - General Family Medicine 08/13/22 [facility] 11/01/22 documented as of this encounter
--- OUTSIDE RECORDS SUMMARY | 2024-11-26 18:27 | XMS_ITS | Encounter Summary ---
Author Organization [employer] Address 75 [facility] 7t [place] [address] Care Team Providers Care Food Processor Name Role Phone [facility] Primary Care Provider [phone] Reason for Visit * Reason Comments ELECTRICAL ASSISTANT Initial ELECTRICAL ASSISTANT Initial Encounter Details Date Type Department Care Team (Latest Contact Info) Description 10/29/2024 1:30 PM EST Clinical Support [facility] MEDICINE 230 [place], [place] [phone] Frida Knapp RN Mixed anxiety and depressive [...] PM EST S: Pt here for initial ELECTRICAL ASSISTANT Visit, accompanied by his JAVA GRAILS DEVELOPER Roma. Prescribed Clonazepam 1mg Q8hr. Patients medications [...] and speaks with a therapist regularly. O: ELECTRICAL ASSISTANT Tier 2. Pt currently prescribed Clonazepam 1mg Q8hr. WINDOWS SYSTEMS ARCHITECT verified today. Rx last filled on 10/15/24. [...] administered and when it's used. Pt and JAVA GRAILS DEVELOPER stated they understood. Will send request to PCP for Narcan RX and update on UTOX results. Last PCP visit was 09/14/24, scheduled next 12/16/24. A: ELECTRICAL ASSISTANT Contract Initiation Visit, Chronic BZO use r/t anxiety. P: ELECTRICAL ASSISTANT contract reviewed and signed, pt provided copy. Pt to continue taking medication only as prescribed; Next ELECTRICAL ASSISTANT RV appointment scheduled for 01/19/25 @ 1:30p, [...] Description 12/16/2024 11:30 AM EDT Office Visit [facility] MEDICINE [address] [place] [address] HendrumGinger, DERIVATIVES TRADER 230 [place] [address] 01/19/2025 1:30 PM EDT Clinical Support [facility] 230 [place] [address] Frida Knapp, OZZY documented as of this encounter Procedures Procedure [...] - 10/29/2024 2:03 PM EST UTOX cup Lot#[id number] Exp. 04/21/26 Internal Pass Control [facility] POINT OF CARE TEST ENTER/EDIT ORDERABLES Final Result * Drug Monitoring, Benzodiazepines, Quantitative, Urine (10/29/2024 1:45 PM EST) Nordiazepam, GCMS Urine NEGATIVE [facility] Oxazepam, GCMS Urine NEGATIVE [facility] Lorazepam GCMS Urine NEGATIVE [facility] Alprazolam, GCMS Urine NEGATIVE [facility] Alphahydroxytriazolam , GCMS Ur NEGATIVE [facility] Temazepam, GCMS Urine NEGATIVE [facility] Alphahydroxymidazolam ,GCMS Ur NEGATIVE [facility] Aminoclonazepam, GCMS Urine 829 [facility] Comment:REFERENCE RANGE: <25 ng/mL Flurazepam Metabolite,GCMS Ur NEGATIVE [facility] Benzodiazepines Comments SEE NOTE [facility] Comment:This drug testing is for medical treatment only. Analysiswas performed as non-forensic testing and these resultsshould be used only by healthcare providers to renderdiagnosis or treatment, or to monitor progress of medicalconditions.Benzodiazepines Notes:Aminoclonazepam detected is consistent with the use of thedrug Clonazepam.LDT Notes:Confirmation tests were developed and their analyticalperformance characteristics have been determined by [employer]. It has not been cleared or approved by the FDA.This assay has been validated pursuant to the CLIAregulations and is used for clinical purposes.Healthcare Providers needing Interpretation assistance,please contact us at [phone] ( ) M-F,8am to 10pm ESTTHIS TEST PERFORMED AT:[facility] [place] [phone] DIRECTOR: LIEN HARO MD Urine (Urine, Random) 10/29/2024 1:45 PM EST 10/29/2024 6:14 PM EST [facility] LAB URINE ORDERABLES Final Re sult [facility] [address] [place] [phone] documented in this encounter Visit Diagnoses Diagnosis Mixed anxiety and depressive disorder- Primary Dysthymic disorder documented in this encounter Additional Health Concerns Assessment Noted Time PHQ-9 Depression Total Score: 13 024 11:27 AM EDT documented as of this encounter Care Teams Food Processor Relationship Specialty Start Date End Date Ginger Perez FNP [address] [place] [address] PCP - General Family Medicine 08/13/22 [facility] [place] [place] 11/01/22 documented as of this encounter
--- OUTSIDE RECORDS SUMMARY | 2024-11-26 18:27 | XMS_ITS | Encounter Summary ---
Author Organization [employer] Address 75 [facility] 7t [place] [address] Care Team Providers Care Forest Ranger Name Role Phone [facility] Primary Care Provider [phone] Reason for Visit * Reason Onset Date Comments Nurse Triage 11/18/2024 Encounter Details Date Type Department Care Team ([facility] st Contact Info) Description 11/18/2024 Telephone [facility] MEDICINE 230 [place], [place] [phone] [facility] 230 [place], [place] [phone] Nurse Triage Social History Tobacco Use Types [...] Telephone Encounter - Francie Au RN - 11/18/2024 5:19 PM EDT Triage call to Pt. Pt reports questionable medication taken last evening. Medication didn't have the same color or size of regularly given medication. Medication was given by health care sanitary technician. Pt reports waking up this morning and became very dizzy, room was spinning, had urinary pain and fell in bathroom hitting head. Pt reports perspiring and feeling weak at time of fall. Pt is advised to go to ED for full evaluation . Pt agrees with disposition. Insurance is verified as active. Protocol Used: Falls and Falling (Adult) Protocol-Based Disposition: Go to ED Now Positive Triage Question: * Injury (or injuries) that need emergency care * All higher-acuity triage questions were negative Care Advice Discussed: * Reasons To Call Back - You become worse. * Telephone Encounter - Raymundo Kelley - 11/18/2024 4:59 PM EDT TC from pt reports dizziness and Sweats early this am walking towards rest room . Pt feels has to do with gabapentin (Neurontin) 300 MG . Pt speaks russian documented in this encounter Plan of Treatment Upcoming Encounters Date Type Department Care Team (Late st Contact Info) Description 12/16/2024 11:30 AM EDT Office Visit [facility] [address] [facility] [place] [address] Ginger Perez FNP 230 [place] [address] 01/19/2025 1:30 PM EDT Clinical Support [facility] 230 [place] [address] Frida Knapp RN documented as of this encounter Visit Diagnoses Not on filedocumented in this encounter Additional Health Concerns Assessment Noted Time PHQ-9 Depression Total Score: 13 024 11:27 AM EDT documented as of this encounter Care Teams Forest Ranger Relationship Specialty Start Date End Date Ginger Perez FNP [facility] [place] [address] PCP - General Family Medicine 08/13/22 [facility] [place] Care 11/01/22 documented as of this encounter
--- OUTSIDE RECORDS SUMMARY | 2024-11-26 18:27 | XMS_ITS | Encounter Summary ---
Author Organization [employer] Address 75 [facility] 7t [place] [address] Care Team Providers Care Army Senior Officer Name Role Phone [facility] Primary Care Provider [phone] Reason for Visit * Reason Comments Med Refill Encounter Details Date Type Department Care Team ([facility] st Contact Info) Description 06/25/2023 Refill [facility] MEDICINE 230 [place], [place] [phone] [facility] 230 [place], [place] [phone] Muscle spasm Social History Tobacco Use Types [...] Description 12/16/2024 11:30 AM EDT Office Visit [address] [address] Ginger Perez [address] [address] 01/19/2025 1:30 PM EDT Clinical Support [address] [address] Frida Knapp, OZZY documented as of this encounter Visit Diagnoses Diagnosis Muscle spasm Spasm of muscle documented in this encounter Additional Health Concerns Assessment Noted Time PHQ-9 Depression Total Score: 16 023 9:09 AM EDT documented as of this encounter Care Teams Army Senior Officer Relationship Specialty Start Date End Date Ginger Perez FNP [address] [place] [address] PCP - General Family Medicine 08/13/22 [facility] [place] Home Care 11/01/22 documented as of this encounter
--- OUTSIDE RECORDS SUMMARY | 2024-11-26 18:27 | XMS_ITS | Encounter Summary ---
Demographics Address [address] [facility] [address] [place] [address] Mobile Phone Work Phone Home Phone Preferred Language en Marital Status Single Spiritism Affiliation Unknown Race Other Race Ethnic Group or Author Organization [employer] Address 75 [facility] 7t [place] [address] Care Team Providers Care White Work Cleaner Name Role Phone [facility] Primary Care Provider [phone] Encounter Details Date Type Department Care Team ([facility] st Contact Info) Description 11/13/2024 Population Health Risk Score [facility] (C3) Department 75 [facility] 7 [place] [address] Provider, Population Health Generic Social History Tobacco Use Types Packs/Day Years [...] Description 12/16/2024 11:30 AM EDT Office Visit [address] [address] Ginger Perez FNP [address] [place] [address] 01/19/2025 1:30 PM EDT Clinical Support [address] [address] Frida Knapp, OZZY documented as of this encounter Visit Diagnoses Not on filedocumented in this encounter Additional Health Concerns Assessment Noted Time PHQ-9 Depression Total Score: 13 024 11:27 AM EDT documented as of this encounter Care Teams White Work Cleaner Relationship Specialty Start Date End Date Ginger Perez FNP [address] [place] [address] PCP - General Family Medicine 08/13/22 [facility] Home Care 11/01/22 documented as of this encounter
--- OUTSIDE RECORDS SUMMARY | 2024-11-26 18:27 | XMS_ITS | Clinical Summary ---
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) Use as directed 100 each 11 023 Active Reguloid 57.6 % powderIndicatio ns:Constipation , unspecified constipation type MIX 1 TEASPOONFUL IN 8 OUNCES OF WATER OR JUICE AND DRINK EVERY MORNING 284 g 023 Active Blood Glucose Monitoring Suppl (GNP Easy Touch Glucose Meter) deviceIndicatio ns:Type 2 diabetes mellitus with hyperglycemia, with long-term current use of insulin ([facility]) Use as directed to check blood sugar four times daily 1 each 023 Active glucose blood test stripIndication s:Type 2 diabetes mellitus with hyperglycemia, with long-term current use of insulin ([facility]) Use as directed to check blood [...] hyperglycemia, with long-term current use of insulin ([facility]) USE TO TEST BLOOD SUGAR FOUR TIMES DAILY 100 each 11 023 Active albuterol (2.5 MG/3ML) 0.083% nebulizer solutionIndicat ions:Moderate persistent asthma without complication INHALE 1 AMPULE USING A NEBULIZER EVERY 6 HOURS NEEDED FOR WHEEZING 90 mL 024 Active Blood Pressure kitIndications: Type 2 diabetes mellitus with hyperglycemia, with long-term current use of insulin ([facility]) Use as directed 1 kit 024 Active olmesartan (BENIcar) 5 MG tabletIndicatio ns:Primary hypertension Take 2 tablets (10 mg) by mouth in the morning. 60 tablet 11 024 Active Neomycin-Polymy bill-HC 1 % solutionIndicat [...] hyperglycemia, with long-term current use of insulin ([facility]) USE DIRECTED FIVE TIMES DAILY 100 each 024 Active tiZANidine (Zanaflex) 4 MG tabletIndicatio ns:Muscle [...] DAYS DIRECTED 510 g 2 024 Active Jardiance 10 MG Take 10 [...] ointment Apply topically 3 times daily. Active Tirzepatide (Mounjaro) 5 MG/0.5ML solution auto-injectorIn [...] depressive disorder TAKE 1 TABLET BY MOUTH THREE TIMES DAILY FOR 28 DAYS 84 tablet 025 Active lidocaine (Lidoderm) 5 % patchIndication s:Other chronic pain APPLY 1 PATCH TOPICALLY TO SKIN, LEAVE ON FOR 12 HOURS AND OFF FOR 12 HOURS DIRECTED 30 patch 1 025 Active lidocaine (Lidoderm) 5 % patch APPLY 1 PATCH TOPICALLY TO SKIN, LEAVE ON FOR 12 HOURS AND OFF FOR 12 HOURS DIRECTED 30 patch 1 024 2024 Discontinued(R eorder (will not trigger notification to Pharmacy)) clonazePAM (KlonoPIN) 1 MG tabletIndicatio ns:Mixed anxiety and depressive disorder Take 1 tablet (1 mg) by mouth 3 times daily for 28 days. 84 tablet 025 2024 Discontinued lidocaine (Lidoderm) 5 % patch APPLY 1 PATCH TOPICALLY TO SKIN, LEAVE ON FOR 12 HOURS AND OFF FOR 12 HOURS DIRECTED 30 patch 1 025 2024 Discontinued(R eorder (will not trigger notification [...] [facility]. Reports with hepatic steatosis with evidence of advanced chronic liver disease ? 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 EEG's normal. Per neurology notes, possible dyskenisa s/t hx of antipsychotic medications which patient is no longer taking. Not currently taking any anti- seizure medications. No seizure episodes >2 months. Episodes triggered by emotional stress. Bariatric surgery status 09/29/2022 Overview (09/29/2022): ? ? Lap band was removed approx 8 years ago in [facility]; repeat lap band through [facility] without weight loss. Very upset by experience at [facility]. Currently working with [facility] weight mgnmt for removal of lap band. Assessment & Plan (05/03/2023 10:30 AM EDT): ?? Details of current weight mngmt plan through [facility] unclear. Will request notes and follow up as indicated Obstructive sleep apnea 09/29/2022 Overview (06/04/2023): ?? Compliant with BiPAP ?? Followed by [facility] neurology and sleep clinic. Dr. Temple Gender dysphoria in adult 09/29/2022 Overview (09/29/2022): ?? Interested in pursuing top and bottom gender reassignment surgery ?? Not a candidate for hormone therapy Healthcare maintenance 09/29/2022 Overview (02/25/2024): Mammo: 07/2022--Birads 2 Pap: HPV negative 2019, no cytology on record. C-scope: Upcoming colonoscopy [facility] GI BMD: Routine age 63 Chronic pain [...] taking medication -Shared-decision making with patient and VEL Hankins regarding med changes: -CONTINUE propranolol 40mg BID [...] medication management. Any issues or concerns, contact [facility]. All his questions were answered and I [...] be left alone, encouraged to request increased CLASSIFIED AD CLERK hours. Will increase bedtime Gabapentin to 1200 [...] of family members and/or 1 of 2 CLASSIFIED AD CLERK's always present. Patient was able to contract [...] prescriber. We did not discuss my planned mcc today. F/U with me in 1 month. [...] 02/13/2024 4 Otitis of left ear 02/13/2024 Assessment & Plan (02/13/2024 12:10 PM EDT): [...] morning Jardiance 25 mg daily Followed by [facility] Grinding Machine Operator Automatic Has dexcom CGM Metformin stopped due to [...] ?? Continue to follow as scheduled with [facility] DM educator ?? Will task RN's to contact patients emergency care attendant to ensure that [facility] is aware of med change. ?? Strongly encouraged patient to continue with CLASSIFIED AD CLERK/VNA services due to multiple chronic conditions and patient's difficulty self managing care. Patient verbalizes understanding and agrees to plan Assessment & Plan (05/03/2023 10:15 AM EDT): ?? Continue to work with [facility] DM educator Henny-will request records and recent [...] Encounters Date Type Department Care Team Description 11/23/2024 Telephone [facility] MEDICINE [address] [place] [address] Natividad Stinson, RN Results 11/18/2024 Telephone [facility] MEDICINE [address] [place] [address] Ginger Perez FNP Nurse Triage 11/18/2024 Orders Only GENERIC EXTERNAL DATA DEPARTMENT Provider, Generic External Data 11/17/2024 Orders Only [facility] MEDICINE [address] [place] [address] Ginger Perez FNP 11/13/2024 Population Health Risk Score [facility] [address] [facility] [address] [address] Provider, Population Health Generic 11/12/2024 Telephone [facility] MEDICINE [address] [place] [address] Ginger Perez FNP Medication Question; Med Refill 11/12/2024 Telephone [facility] MEDICINE [address] [place] [address] Ginger Perez FNP Durable Medical Equipment 11/11/2024 Orders Only [facility] WALK-IN CENTER [address] [facility] [place] [address] PeshtigoGinger [facility] Weight loss, unintentional (Primary Dx); Other chronic pain 11/11/2024 Refill [facility] MEDICINE [address] [place] [address] Roma Man MD Mixed anxiety and depressive disorder 11/10/2024 Telephone [facility] [address] [facility] [place] [address] PeshtigoGinger [facility] Lab Orders 11/09/2024 Orders Only [facility] [address] [facility] [address] PeshtigoGinger [facility] Weight loss (Primary Dx) 11/05/2024 Orders Only GENERIC EXTERNAL DATA DEPARTMENT Provider, Generic External Data 11/02/2024 Telephone [facility]a [facility] [place] [address] Frida Knapp RN Error (VOID this visit) 10/30/[address] [place] [address] Frida Knapp RN Clonazepam count 10/29/2024 1:30 PM EST Clinical Support [facility] [place] [address] Frida Knapp RN Mixed anxiety and depressive disorder (Primary Dx) 10/29/2024 Refill [facility] Center[facility] [place] [address] Frida Knapp, RN Low back pain at multiple sites (Primary Dx) 10/29/2024 Travel 10/29/2024 Telephone [facility] [place] [address] Frida Knapp RN Recommend [facility] Tier 2 10/23/[address] [place] [address] PeshtigoGinger FNP 10/20/2024 Telephone [facility] [place] [address] Frida Knapp RN [facility] 10/16/2024 Orders Only [facility] WALK[facility]IN CENTER [address] [facility] Center[facility] [place] [address] Ginger Perez FNP Type 2 diabetes mellitus with chronic kidney disease, with long-term current use of insulin, unspecified CKD stage ([facility]) (Primary Dx) 10/15/2024 Refill [facility] MEDICINE [address] [facility] [place] [address] Frida Knapp, RN Mixed anxiety and depressive disorder 10/15/2024 Telephone [facility] MEDICINE [address] [place] [address] Ginger Perez FNP Medication Question 10/09/2024 Telephone [facility] [address] [place] [address] PeshtigoGinger FNP Call Back Request 10/06/2024 Telephone [facility] [address] [place] [address] PeshtigoGinger FNP Results 10/05/2024 Telephone [facility] [address] [place] [address] Kimberly Michael, RN Results 10/05/2024 Orders Only [facility] WALK-IN CENTER [address] [place] [address] Ginger Perez FNP Subclinical hyperthyroidism (Primary Dx) 10/01/2024 Telephone [facility] [address] [place] [address] Ginger Perez FNP Nurse Triage 10/01/2024 Telephone [facility] [address] [place] [address] AnaGinger canales FNP Durable Medical Equipment (DME: Disposable Underpad) 10/01/2024 Orders Only [facility] MEDICINE [address] [place] [address] AnaGinger canales FNP 09/29/2024 Telephone [facility] MEDICINE [address] [place] [address] Marisabel Kaye, OZZY Results 09/28/2024 Orders Only [facility] WALK[facility]IN CENTER [address] [place] [address] Ginger Perez FNP Abnormal TSH (Primary Dx) 09/15/2024 Refill [facility] MEDICINE [address] [place] [address] Ginger Perez FNP 09/15/2024 Telephone [facility] MEDICINE [address] [place] [address] Angelic Keys, RN Care Coordination 09/14/2024 11:30 AM EST Office Visit [facility] [address] [place] [address] Peshtigo [facility] Type 2 diabetes mellitus with hypoglycemia without coma, with long-term current use of insulin ([facility]) (Primary Dx); Tremor of hands and face; Decreased hearing of left ear 09/14/2024 Orders Only [facility] [address] [place] [address] Peshtigo [facility] 09/14/2024 Travel 09/08/2024 10:15 AM EST Office Visit [address] [address] Corbin Hughes CNM Postmenopausal bleeding (Primary Dx); Epidermal cyst of vulva 09/08/2024 Travel from Last 3 Months Immunizations Name Administration [...] Description 12/16/2024 11:30 AM EDT Office Visit [facility] MEDICINE [address] [place] [address] PeshtigoGinger FNP [address] [place] [address] 01/19/2025 1:30 PM EDT Clinical Support [facility] MEDICINE [address] [place], [place] [id number] Frida Knapp, OZZY Health Maintenance Due Date [...] WHOLE BLOOD Routine 11/18/2024 12:38 PM EDT T4, FREE Routine 11/17/2024 8:55 AM EDT TSH W/REFLEX TO FT4 Routine 11/17/2024 8 :55 AM EDT Weight loss C-REACTIVE PROTEIN Routine 11/17/2024 8: 55 AM EDT Weight loss SED RATE BY MODIFIED WESTERGREN Routine 11/17/2024 8:55 AM EDT Weight loss COMPREHENSIVE METABOLIC PANEL Routine 11/17/2024 8:55 AM EDT Weight loss CBC WITH AUTO DIFFERENTIAL Routine 11/17/2024 8:55 AM EDT Weight loss GLUCOSE, WHOLE BLOOD Routine 11/05/2024 2:23 PM [...] PM EST Breast cancer screening by mammogram POCT GLYCATED HEMOGLOBIN, TOTAL Routine 05/13/2024 12:23 [...] Relevant to Health Maintenance Results * (ABNORMAL) Glucose, Whole Blood (11/18/2024 1:05 PM EDT) Only the most recent of4 resultswithin the time period is included. Glucose, Whole Blood 133(H) 60 - 115 mg/dL [facility] Comment:METER #: [id number] 5Testing performed in the Endocrinology Department [address] , [address], [facility]. 11/18/2024 1:05 PM EDT 11/18/2024 1:15 PM EDT Generic External Data Provider LAB BLOOD ORDERAB LES Final Result Performing Organization Address [facility] Co de Phone Number [facility] [address] [place] [phone] * (ABNORMAL) TSH W/Reflex to FT4 (11/17/2024 8:55 AM EDT) Only the most recent of3 resultswithin the time period is included. Pathologist [facility] TSH reflex Free T4 0.31(L) 0.32 - 4.0 uIU/mL [facility] Blood Venous blood specimen / Unknown 11/17/2024 8:55 AM EDT 11/17/2024 11:09 AM EDT [facility] DENTAL OFFICER LAB BLOOD ORDERABLES Final Re sult Performing Organization Address [facility] de Phone Number [facility] [address] [place] [phone] * (ABNORMAL) CBC auto differential (11/17/2024 8:55 AM EDT) Only the most recent of2 resultswithin the time period is included. Pathologist [facility] White Blood Count 8.6 4.8 - 10.8 X10*3/uL [facility] Red Blood Count 5.15 4.20 - 5.50 X10*6/uL [facility] Hemoglobin 13.7 12.0 - 16.0 g/dl [facility] Hematocrit 42.1 37.0 - 47.0 % [facility] Mean Corpuscular Volume 81.7 80.0 - 98.0 fL [facility] Mean Corpuscular Hemoglobin 26.6(L) 27.0 - 33.0 pg [facility] Mean Corpuscular HGB Conc 32.5 31.0 - 35.0 g/dl [facility] Red Cell Distribution Width 13.4 11.0 - 16.0 % [facility] Platelet Count 210 160 - 400 X10*3/uL [facility] Mean Platelet Volume 11.8 9.4 - 12.3 fL [facility] Neutrophils Percent Auto 59.0 45 - 73 % [facility] Imm Gran Pct Auto 0.3 0.0 - 0.4 % [facility] Lymphocytes Percent Auto 33.6 20 - 40 % [facility] Monocytes Percent Auto 5.2 2 - 11 % [facility] Eosinophils Percent Auto 1.7 0 - 4 % [facility] Basophils Percent Auto 0.2 0 - 2 % [facility] NRBC Pct Auto 0.0 0.0 - 0.2 /100WBC [facility] Neutrophils Absolute Auto 5.1 2.0 - 8.3 x10*3/uL [facility] Imm Gran Abs Auto 0.03 0.00 - 0.03 X10*3/uL [facility] Lymphocytes Absolute Auto 2.9 1.2 - 4.9 X10*3/uL [facility] Monocytes Absolute Auto 0.5 0.1 - 1.2 X10*3/uL [facility] Eosinophils Absolute Auto 0.2 0.0 - 0.4 X10*3/uL [facility] Basophils Absolute Auto 0.0 0.0 - 0.2 X10*3/uL [facility] NRBC Abs Auto 0.000 0.0 - 0.012 X10*3/uL [facility] Blood Venous blood specimen / Unknown 11/17/2024 8:55 AM EDT 11/17/2024 11:09 AM EDT [facility] DENTAL OFFICER LAB BLOOD ORDERABLES Final Re sult [facility] [address] [place] [address] [phone] * Sed Rate by Modified Westergren (11/17/2024 8:55 AM EDT) Erythrocyte Sedimentation Rate 12 0 - 20 MM/HR [facility] Comment:Patients with polycy themia and many hemoglobin abnormalitiesmay have depressed sed rates whereas patients with anemiamay have elevated sed rates. Blood Venous blood specimen / Unknown 11/17/2024 8:55 AM EDT 11/17/2024 11:09 AM EDT [facility] LAB BLOOD ORDERABLES Final Re sult Performing Organization Address [facility] Co de Phone Number [facility] [address] [place] [phone] * C-reactive Protein (11/17/2024 8:55 AM EDT) C Reactive Protein 0.11 < or = 0.50 mg/dL [facility] Blood Venous blood specimen / Unknown 11/17/2024 8:55 AM EDT 11/17/2024 11:09 AM EDT [facility] LAB BLOOD ORDERABLES Final Re sult Performing Organization Address [facility] Co de Phone Number [facility] [address] [place] [phone] * T4, Free (11/17/2024 8:55 AM EDT) Only the most recent of3 resultswithin the time period is included. Free T4 (Free Thyroxine) 0.92 0.71 - 1.85 ng/dL [facility] 11/17/2024 8:55 AM EDT 11/17/2024 11:09 AM EDT [facility] LAB BLOOD ORDERABLES Final Re sult Performing Organization Address [facility] Co de Phone Number [facility] [address] [place] [phone] [phone] * (ABNORMAL) Comprehensive Metabolic Panel (11/17/2024 8:55 AM EDT) Sodium 143 135 - 145 mmol/L [facility] Potassium 4.2 3.3 - 5.1 mmol/L [facility] Chloride 110(H) 96 - 108 mmol/L [facility] Carbon Dioxide 25 22 - 29 mmol/L [facility] Anion Gap 12 12 - 20 [facility] Urea Nitrogen (BUN) 14 9 - 16 mg/dL [facility] Creatinine, Serum 0.91 0.5 - 1.4 mg/dL [facility] Estimated Glomerular Filt Rate >60 [facility] Comment:Chronic Kidney Disea se: Estimated GFR < 60 mL/min/1.57l4Bndkrj Kidney Disease: Estimated GFR < 15 mL/min/1.73m2 Glucose 80 60 - 115 mg/dL [facility] Calcium 9.7 8.4 - 10.2 mg/dL [facility] Bilirubin, Total 0.4 0.0 - 1.0 mg/dL [facility] Aspartate Amino Transferase 20 5 - 31 U/L [facility] Alanine Aminotransferase 15 0 - 31 U/L [facility] Total Protein 7.6 6.5 - 8.0 g/dL [facility] Albumin Level 4.0 3.5 - 5.0 g/dL [facility] Alkaline Phosphatase 81 39 - 117 U/L [facility] Blood Venous blood specimen / Unknown 11/17/2024 8:55 AM EDT 11/17/2024 11:09 AM EDT [facility] LAB BLOOD ORDERABLES Final Re sult [facility] [address] [place] [address] [phone] * (ABNORMAL) POCT BLANKA-14 Urine Drug Screen (10/29/2024 2:03 PM EST) THC Positive Benzodiazepines Screen, Urine Negative Urine Urine specimen obtained by clean catch procedure / Unknown 10/29/2024 2:03 PM EST Frida Burleson, RN - 10/29/2024 2:03 PM EST UTOX cup Lot#[id number] Exp. 04/21/26 Internal Pass Control [facility] DENTAL OFFICER POINT OF CARE TEST ENTER/EDIT ORDERABLES Final Result * Drug Monitoring, Benzodiazepines, Quantitative, Urine (10/29/2024 1:45 PM EST) Nordiazepam, GCMS Urine NEGATIVE [facility] Oxazepam, GCMS Urine NEGATIVE [facility] Lorazepam GCMS Urine NEGATIVE [facility] Alprazolam, GCMS Urine NEGATIVE [facility] Alphahydroxytriazolam , GCMS Ur NEGATIVE [facility] Temazepam, GCMS Urine NEGATIVE [facility] Alphahydroxymidazolam ,GCMS Ur NEGATIVE [facility] Aminoclonazepam, GCMS Urine 829 [facility] Comment:REFERENCE RANGE: <25 ng/mL Flurazepam Metabolite,GCMS Ur NEGATIVE [facility] Benzodiazepines Comments SEE NOTE [facility] Comment:This drug testing is for medical treatment only. Analysiswas performed as non-forensic testing and these resultsshould be used only by healthcare providers to renderdiagnosis or treatment, or to monitor progress of medicalconditions.Benzodiazepines Notes:Aminoclonazepam detected is consistent with the use of thedrug Clonazepam.LDT Notes:Confirmation tests were developed and their analyticalperformance characteristics have been determined by [employer]. It has not been cleared or approved by the FDA.This assay has been validated pursuant to the CLIAregulations and is used for clinical purposes.Healthcare Providers needing Interpretation assistance,please contact us at [phone] ( ) M-F,8am to 10pm ESTTHIS TEST PERFORMED AT:[email or web address] [place] [phone] DIRECTOR: LIEN HARO MD Urine (Urine, Random) 10/29/2024 1:45 PM EST 10/29/2024 6:14 PM EST [facility] LAB URINE ORDERABLES Final Re sult Performing Organization Address [facility] Phone Number [facility] [address] [place] [phone] * Referral to Audiology (10/05/2024) Result [facility] OUTPATIENT REFERRAL ORDERABLE S Final Result * Thyroid Peroxidase Antibodies (10/01/2024 9:58 AM EST) Thyroid Peroxidase Antibodies <1 <9 IU/mL [facility] Comment:THIS TEST WAS PERFOR MED AT:[facility] [address] [phone] HARO MD Blood Venous blood specimen / Unknown 10/01/2024 9:58 AM EST 10/01/2024 11:04 AM EST Result [facility] LAB BLOOD ORDERABLES Final Re sult Performing Organization Address [facility] Number [facility] [address] [place] [phone] * TRAb (TSH Receptor Binding Antibody) (10/01/2024 9:58 AM EST) TRAb (TSH Receptor Binding Antibody) <1.00 <=2.00 IU/L [facility] Comment:This test was perfor med using the TRAb Antibody ELISAmethod which is standardized against the 1stInternational Standard 90/672 and is reported inInternational Units (IU/L). The reference rangereported was established specifically for this testmethod.THIS TEST WAS PERFORMED AT:[facility]/[id number] [place] [email or web address] IRBY MD,PHD Blood Venous blood specimen / Unknown 10/01/2024 9:58 AM EST 10/01/2024 11:04 AM EST [facility] LAB BLOOD ORDERABLES Final Re sult Performing Organization Address City/[facility]/ZIP Co de Phone Number [facility] [address] [place] [phone] * HIV-1/2 Antigen and Antibodies, Fourth Generation, with Reflexes (10/01/2024 9:58 AM EST) Only the most recent of2 resultswithin the time period is included. HIV AB/AG Nonreactive Nonreactive [facility] Comment:HIV-1 p24 Ag and/or HIV-1/HIV-2 Ab not detected.A test result that is nonreactive does not exclude thepossibility of exposure to or infection with HIV-1 and/orHIV-2. Nonreactive results in this assay for individualswith prior exposure to HIV-1 and/or HIV-2 may be due toantigen and antibody levels that are below the limit ofdetection of this assay.The [facility] HIV Ag/Ab Combo assay result andsupplemental assay results should be interpreted inconjunction with the patient's clinical presentation,history and other laboratory results. If the results areinconsistent with clinical evidence, additional testing issuggested to confirm the result. Blood Venous blood specimen / Unknown 10/01/2024 9:58 AM EST 10/01/2024 11:04 AM EST [facility] LAB BLOOD ORDERABLES Final Re sult Performing Organization Address [facility]/ZIP Co de Phone Number [facility] [address] [place] [phone] * MR Brain w/o Contrast (09/24/2024 3:41 PM EST) Anatomical Region Laterality Modality Brain Magnetic Resonan ce 09/24/2024 3:41 PM EST Narrative 09/25/2024 7:34 AM EST ? [facility] ?[address] ?[place] [address] ? Magnetic Resonance Report ? Signed ? Patient: Mcmahan,Hilda ?MR#: [id number] ?? [id number] ? : 1965 ?Acct:[id number] ? Age/Sex: 59 / F ?ADM Date: 09/24/24 ? Loc: HO.MRI ? Attending Dr: Ginger DUARTE ? Ordering Physician: Ginger Perez ?? Date of Service: 09/24/24 ?? Procedure(s): MR head/brain wo con ?? Accession Number(s): [id number] ? cc: Ginger Perez ? EXAMINATION: ??MR [...] MD in OV> ?09/25/24 0731 ? DD/ ? TD/TT: 09/24/244 ? Miter Grinder Operator: ? Procedure Note Donotuseinterpreter, Image - 09/25/2024 [place] [address] Magnetic Resonance Report Signed Patient: Hilda McmahanMR#: [id number] : 1965Acct:[id number] Age/Sex: 59 / FADM Date: 09/24/24 Loc: HO.MRI Attending Dr: Ginger DUARTE Ordering Physician: Ginger Perez Date of Service: 09/24/24 Procedure(s): MR head/brain wo con Accession Number(s): [id number] cc: Ginger Perez EXAMINATION: MR BRAIN WITHOUT [...] Kingston Chavis MD 09/25/2024 07:31 AM EST Dictated By: Kingston Chavis MD Signed By: <Electronically signed by Kingston Chavis MD in OV> 09/25/24 0731 DD/ 1541 TD/TT: 09/24/24 1624 Miter Grinder Operator: [facility] IMG MRI PROCEDURES Final Resu lt * Syphilis Screen (09/14/2024 1:25 PM EST) Syphilis Screen Nonreactive Nonreactive [facility] Blood 09/14/2024 1:25 PM EST 09/14/2024 4:07 PM EST [facility] LAB BLOOD ORDERABLES Final Re sult [facility] [address] [place] [phone] * (ABNORMAL) Lipid Panel, Standard (09/14/2024 1:25 PM EST) Triglycerides 123 <150 mg/dL [facility] Comment:Desirable Triglyceri de: less than 150 mg/dLBorderline High Triglyceride 150-199 mg/dLHigh Triglyceride: 200-499 mg/dLVery High Triglyceride: greater than or equal to 5OO mg/dL Cholesterol 146 <200 mg/dL [facility] Comment:Desirable Cholestero l: less than 200 mg/dLBorderline High Cholesterol: 200-239 mg/dLHigh Cholesterol: greater than 239 mg/dL LDL Cholesterol Calculated 83 <100 mg/dL [facility] Comment:Desirable LDL: less than 100 mg/dLNear Optimal/Above Optimal LDL: 110- 129 mg/dLBorderline High LDL: 130-159 mg/dLHigh LDL: 160-189 mg/dLVery High LDL: greater than or equal to 190 mg/dL HDL Cholesterol 39(L) >40 mg/dL [facility] Comment:Desirable HDL: great er than 40 mg/dL Note: This HDL assay may give artificially low results in patients with liver disease. Blood Venous blood specimen / Unknown 09/14/2024 1:25 PM EST 09/14/2024 4:07 PM EST us Ginger Peshtigo DENTAL OFFICER LAB BLOOD ORDERABLES Final Re sult [facility] [address] [place] [address] [phone] * STI testing add on (NG, CT, Trich) (09/08/2024 9:30 AM EST) Trichomonas (NAAT) Not Detected Not Detected [facility] Comment:Methodology: Transcr iption Mediated Amplification(TMA)The analytical performance characteristics of thisassay have been determined by [place]. The modificationshave not been cleared or approved by the FDA. Thisassay has been validated pursuant to the CLIAregulations and is used for clinical purposes.For additional information, please refer tohttp://4Home.JeNaCell/faq/Trichomonastma (This link is being providedfor information/educational purposes only).THIS TEST WAS PERFORMED AT:[facility] [id number] [place] [address]QGMHYEOSALEEM IRBY MD,PHD CTNG Ref Lab Not Detected Not Detected [facility] NG Ref Lab Not Detected Not Detected [facility] Comment:Methodology: Transcr iption Mediated Amplification(TMA) to detect RNA.The analytical performance characteristics of thisassay, when used to test SurePath specimens havebeen determined by [facility]. The modificationshave not been cleared or approved by the FDA.This assay has been validated pursuant to the CLIAregulations and is used for clinical purposes.For additional information, please refer tohttps://education.JeNaCell/faq/RFC200(This link is being provided for information/educational purposes only).THIS TEST WAS PERFORMED AT:[employer] [id number] [place] [address]UZSLKFTSALEEM IRBY MD,PHD ThinPrep?? vial Cervix uteri structure / Unknown 09/08/2024 9:30 AM EST 09/09/2024 10:20 AM EST Narrative [facility] - 09/13/2024 11:00 PM EST Collection Date: [id number] by: WON Cardenas: Cervix us Corbin Hughes CNM LAB CYTOLOGY ORDERABLES F inal Result [facility] [address] [place] [address] [phone] * Pap Smear (09/08/2024 9:30 AM EST) Swab Cervix uteri structure / Unknown 09/08/2024 9:30 AM EST 09/09/2024 10:20 AM EST Narrative [facility] - 09/17/2024 3:06 PM EST ----- ------- Name: Hilda Mcmahan ? Age/Sex: 59/F ? : 1965 Unit#: [id number] ?? Attend Dr: CORBIN HUGHES CNM ?Re09/08/24 ?Status: DEP REF ? Location: HO.LNP ?Disch: ? ----- ------- SPEC : [id number] ?RECD: 09/09/24 ? STATUS: ??SOUT ? REQ NUM: [id number] ? LORI: 09/08/24 ? SUBM DR: CORBIN [...] (signature on file) TALIB Roche (ASCP) 09/17/24 5977 ? ----- ------- ? END OF REPORT ? us Corbin Hughes CN LAB CYTOLOGY ORDERABLES F inal Result [facility] [address] [place] [address] [phone] * BI Mammogram Screening Tomosynthesis Bilateral (08/27/2024 1:05 PM EST) Anatomical Region Laterality Modality Breast Bilateral Mammography 08/27/2024 1:05 PM EST Narrative 09/08/2024 4:57 PM EST ? [facility] ? [address] ?[place] [address] ? Mammography Report ? Signed ? Patient: Mcmahan,Hilda ?MR#: [id number] ?? 5104 ? : 1965 ?Acct:[id number] ? Age/Sex: 59 / F ?ADM Date: 12/26/24 ? Loc: HO.MAMMO ? Attending Matthew Sahni MD ? Ordering Physician: Ginger Perez ?Results: 1Nega ?? tive ? Date of Service: 08/27/24 ?Follow Up: 1 Year From Orig ?? inal Mammogram ? Procedure(s): MM tomosynthesis screening BI ?? Accession Number(s): [id number] ? cc: Ginger Perez DENTAL OFFICER ? EXAMINATION: ?? MM SCREENING DIGITAL BREAST [...] next mammogram. ? Electronically signed by: ??Pepper Ronaldwale DO ??09/08/2024 04:54 PM EST ?? RP ? Dictated By: ?Ppeper Mercer DO ? Signed By: ?<Electronically signed by Pepper Mercer, DO in OV> ? 09/08/24 1654 ? DD/ 1305 ? TD/TT: 08/27/24 1329 ? Miter Grinder Operator: ? Procedure Note Rosey, Image - 09/08/2024 [facility] [address] [place] [address] Dr. [place], [place] [address] Mammography Report Signed Patient: Hilda McmahanMR#: [id number] : 1965Acct:[id number] Age/Sex: 59 / FADM Date: 08/27/24 Loc: HO.MAMMO Attending Dr: Oz Sahni MD Ordering Physician: PeshtigoGinger canales FNPResults: 1Nega tive Date of Service: 08/27/24Follow Up: 1 Year From Orig inal Mammogram Procedure(s): MM tomosynthesis screening BI Accession Number(s): [id number] cc: [facility] DENTAL OFFICER EXAMINATION: MM SCREENING DIGITAL BREAST TOMOSYNTHESIS, BILATERAL [...] 09/08/24 1654 DD/ 1305 TD/TT: 08/27/24 1329 Miter Grinder Operator: [facility] DENTAL OFFICER IMG BI PROCEDURES Final Resul t * (ABNORMAL) POCT HGB A1C (05/13/2024 12:23 PM EDT) Hemoglobin A1C 6.2(A) 4.0 - 6.0 % QC Media Lot # [id number] Lot# Expiration Date [id number] Blood 05/13/2024 12:2 3 PM EDT Result [facility] POINT OF CARE TEST ENTER/EDIT ORDERABLES Final Result * Hepatitis C Antibody with Reflex to HCV, RNA, Quantitative, Real-Time PCR (09/25/2022 12:06 PM EST) Pathologist [facility] Hepatitis C Antibody NON-REACT MARRY NON-REACT MARRY [facility] [place] Index 0.12 <1.00 [facility] [place] Comment: HCV antibody was non-reactive. There is no laboratory evidence of HCV infection. In most cases, no further action is required. However, if recent HCV exposure is suspected, a test for HCV RNA (test code 98410) is suggested. For additional information please refer to http://education.JeNaCell/faq/VEU81l5 (This link is being provided for informational/ educational purposes only.) Blood Venous blood specimen / Unknown 09/25/2022 12:06 PM EST 09/25/2022 12:06 PM EST Narrative [facility] - 09/27/2022 8:46 AM EST FASTING:YES FASTING: YES Result [facility] LAB BLOOD ORDERABLES Final Re sult [facility] [address], [place] [address] [facility] [place] [address] [facility], (N[address]) [place] [address] * HPV mRNA E6/E7 (09/09/2019 11:55 AM EST) [facility] HPV mRNA E6/E7 Not Detected NOT DETECTED [facility] Comment: This test was performed using the APTIMA(R) HPV Assay ([employer] This assay detects E6/E7 viral messenger RNA (mRNA) from 14 high-risk HPV types (16,18,31,33,35,39,45,51, 52,56,58,59,66,68). For additional information please refer to: http://education.iPG Maxx [employer]Freedom Meditech/faq/CON843n3 (This link is being provided for informational/ educational purposes only.) The analytical performance characteristics of this assay have been determined by [facility] [place], [place]. The modifications have not been cleared or approved by the FDA. This assay has been validated pursuant to the CLIA regulations and is used for clinical purposes. Test Performed by [facility], [facility], [address] [place] [address] Saleem Irby M.D., Ph.D., Director of Laboratories , CLIA [id number] Please note: ??Effective 05/14/2016, HPV testing will be performed using [employer]'s APTIMA test which targets mRNA. Detecting mRNA instead of DNA, as in older methods, offers significant improvements in specificity. 09/09/2019 11:5 5 AM EST us Corbin Hughes CNM HISTORICAL/NON ORDERABLE LABS Final Result [facility] Anywhere [address] from Last 3 Months or Most Recently Relevant to Health Maintenance [facility] * Guarantor: Hilda Mcmahan Account Type Relation to Patient Date of Phone Billing Address Personal/Family Self [address] [facility] [place] [address] * Guarantor: Hilda Mcmahan Account Type Relation to Patient Date of Phone Billing Address Personal/Family Self [address] [place] [address] * Guarantor: Hilda Mcmahan Account Type Relation to Patient Date of Phone Billing Address Personal/Family Self [address] [place] [address] Painter Helper Relationship Specialty Start Date End Date PeshtigoGinger canales FNP [address] [place] [address] PCP - General Family Medicine 08/13/22 [facility] 11/01/22
--- OUTSIDE RECORDS SUMMARY | 2024-11-26 18:27 | XMS_ITS | Encounter Summary ---
Author Organization [employer] Address [address] [facility] 7t [place] [address] Care Team Providers Care Rougher Merchant Mill Name Role Phone [facility] Primary Care Provider [phone] Reason for Visit * Reason Comments Med Refill Encounter Details Date Type Department Care Team ([facility] st Contact Info) Description 05/22/2024 Refill [facility] MEDICINE [address] [place], [place] [phone] [facility] [address] [place], [place] [phone] Low back pain at multiple sites Social [...] 11:30 AM EDT Office Visit [facility] MEDICINE [address] [place] [address] Ginger Perez FNP [address] [place] [address] 01/19/2025 1:30 PM EDT Clinical Support [address] [address] Frida Knapp, OZZY documented as of this encounter Visit Diagnoses Diagnosis Low back pain at multiple sites documented in this encounter Additional Health Concerns Assessment Noted Time PHQ-9 Depression Total Score: 13 024 11:27 AM EDT documented as of this encounter Care Teams Rougher Merchant Mill Relationship Specialty Start Date End Date Ginger Perez FNP [address] [place] [address] PCP - General Family Medicine 08/13/22 [facility] Home Care 11/01/22 documented as of this encounter
--- OUTSIDE RECORDS SUMMARY | 2024-11-26 18:27 | XMS_ITS | Encounter Summary ---
Author Organization [employer] Address [address] [facility] 7t [place] [address] Care Team Providers Care Behavioral Health Case Manager Name Role Phone [facility] Primary Care Provider [phone] Encounter Details Date Type Department Care Team ([facility] st Contact Info) Description 02/21/2023 Telephone [facility] MEDICINE [address] [place], [place] [phone] [facility] [address] [place] [address] Social History Tobacco Use Types Packs/Day Years [...] - 02/25/2023 9:57 AM EDT T/C to [phone] for below message, No answer. LVM to call back on [phone]. As per last message , PCP referred pt. For Physical therapy evaluation. * Telephone Encounter - Mirta Vladimir - 02/21/2023 3:11 PM EDT Tc from [facility] requesting a script for Albuterol for nebulize machine. Dock Pumper check on med list but nothing. Also [facility] requesting a referral for Occupational Therapy and Physical Therapy in home. To contact [facility] at [phone] Perez documented in this encounter Plan of Treatment Upcoming Encounters Date Type Department Care Team (Late st Contact Info) Description 12/16/2024 11:30 AM EDT Office Visit [facility] MEDICINE [address] [place] [address] Ginger Perez FNP [address] [place] [address] 01/19/2025 1:30 PM EDT Clinical Support [facility] [address] [place] [address] Frida Knapp, RN documented as of this encounter Visit Diagnoses Not on filedocumented in this encounter Additional Health Concerns Assessment Noted Time PHQ-9 Depression Total Score: 9 01/25/20 23 1:11 PM EDT documented as of this encounter Care Teams Behavioral Health Case Manager Relationship Specialty Start Date End Date Ginger Perez FNP [address] [place] [address] PCP - General Family Medicine 08/13/22 [facility] 11/01/22 documented as of this encounter
--- OUTSIDE RECORDS SUMMARY | 2024-11-26 18:27 | XMS_ITS | Encounter Summary ---
Author Organization [employer] Address [address] [facility] 7t [place] [address] Care Team Providers Care Electrical Prospecting Observer Name Role Phone [facility] Primary Care Provider [phone] Reason for Visit * Reason Comments Med Refill Encounter Details Date Type Department Care Team ([facility] st Contact Info) Description 05/11/2024 Refill [facility] [address] [place], [place] [phone] Roma Man MD [address] [place] [address] Onychomycosis Social History Tobacco Use Types Packs/Day [...] Description 12/16/2024 11:30 AM EDT Office Visit [address] [address] Ginger Perez FNP [address] [place] [address] 01/19/2025 1:30 PM EDT Clinical Support [address] [address] Frida Knapp RN documented as of this encounter Visit Diagnoses Diagnosis Onychomycosis Dermatophytosis of nail documented in this encounter Additional Health Concerns Assessment Noted Time PHQ-9 Depression Total Score: 13 024 11:27 AM EDT documented as of this encounter Care Teams Electrical Prospecting Observer Relationship Specialty Start Date End Date Ginger Perez FNP [address] [place] [address] PCP - General Family Medicine 08/13/22 [facility] Home Care 11/01/22 documented as of this encounter
--- OUTSIDE RECORDS SUMMARY | 2024-11-26 18:27 | XMS_ITS | Encounter Summary ---
Demographics Address [address] [facility] [address] [place] [address] Mobile Phone Work Phone Home Phone Preferred Language en Marital Status Single Jain Affiliation Unknown Race Other Race Ethnic Group or Author Organization [employer] Address [address] [facility] 7t [place] [address] Care Team Providers Care Oracle Solutions Architect Name Role Phone [facility] Primary Care Provider [phone] Encounter Details Date Type Department Care Team [...] 12/16/2024 11:30 AM EDT Office Visit [address] [address] [place], [address] [address] 01/19/2025 1:30 PM EDT Clinical Support [address] [address] Frida Knapp RN documented as of this encounter Procedures Procedure Name Priority Date/Time Associated Diagnosis Comments GLUCOSE, WHOLE BLOOD Routine 11/05/2024 2:23 PM EST GLUCOSE, WHOLE BLOOD Routine 11/05/2024 1:54 PM EST documented in this encounter Results * Glucose, Whole Blood (11/05/2024 2:23 PM EST) Glucose, Whole Blood 87 60 - 115 mg/dL [facility] Comment:METER #: [id number] 5Testing performed in the Endocrinology Department [address] , [address], [facility]. 11/05/2024 2:23 PM EST 11/05/2024 2:30 PM EST us Generic External Data Provider LAB BLOOD ORDERAB LES Final Result [facility] [address] [place] [address] [phone] * Glucose, Whole Blood (11/05/2024 1:54 PM EST) Glucose, Whole Blood 77 60 - 115 mg/dL [facility] Comment:METER #: [id number] 5Testing performed in the Endocrinology Department [address] , [address], [facility]. 11/05/2024 1:54 PM EST 11/05/2024 2:00 PM EST us Generic External Data Provider LAB BLOOD ORDERAB LES Final Result Performing Organization Address [facility] Co de Phone Number [facility] [address] [place] [address] [phone] documented in this encounter Visit Diagnoses Not on filedocumented in this encounter Additional Health Concerns Assessment Noted Time PHQ-9 Depression Total Score: 13 024 11:27 AM EDT documented as of this encounter Care Teams Oracle Solutions Architect Relationship Specialty Start Date End Date Ginger Perez FNP [address] [place] [address] PCP - General Family Medicine 08/13/22 [facility] 11/01/22 documented as of this encounter
--- OUTSIDE RECORDS SUMMARY | 2024-11-26 18:27 | XMS_ITS | Encounter Summary ---
Author Organization [employer] Address [address] [facility] 7t [place] [address] Care Team Providers Care Diesel Retrofit Installer Name Role Phone [facility] Primary Care Provider [phone] Reason for Visit * Reason Onset Date Comments Results 11/23/2024 Encounter Details Date Type Department Care Team ([facility] Contact Info) Description 11/23/2024 Telephone [facility] MEDICINE [address] [place], [place] [phone] Natividad Stinson RN [address] [place], [place] [phone] Results Social History Tobacco Use Types Packs/Day [...] Telephone Encounter - Natividad Stinson RN - 11/23/2024 11:21 AM EDT TC placed to pt., informed pt. Bloodwork results from 11/17/24 came back stable aside from slightly abnormal thyroid testing, per endo note 11/05/24, they plan to follow-up on subclinical hypothyroidism. [facility] appt. Is scheduled for 12/31/24. Pt. Agrees to f/up with them at this time for treatment if needed. Otherwise, pt. Reports worsening diabetic neuropathy pain in feet, feels like burning and itching. Pt. Reports he is planning to come to walk in care sometime this week for evaluation. documented in this encounter Plan of Treatment Upcoming Encounters Date Type Department Care Team (Late st Contact Info) Description 12/16/2024 11:30 AM EDT Office Visit [facility] MEDICINE [address] [place], [place] [phone] [facility] [address] [place] [address] 01/19/2025 1:30 PM EDT Clinical Support [facility] MEDICINE [address] [facility] Center[facility] [place] [address] Frida Knapp, OZZY documented as of this encounter Visit Diagnoses Not on filedocumented in this encounter Additional Health Concerns Assessment Noted Time PHQ-9 Depression Total Score: 13 024 11:27 AM EDT documented as of this encounter Care Teams Diesel Retrofit Installer Relationship Specialty Start Date End Date Ginger Perez FNP [address] [facility] [place] [address] PCP - General Family Medicine 08/13/22 [facility] 11/01/22 documented as of this encounter
--- OUTSIDE RECORDS SUMMARY | 2024-11-26 18:27 | XMS_ITS | Encounter Summary ---
Author Organization [employer] Address [address] [facility] 7t [place] [address] Care Team Providers Care Veterinary Surgeon Name Role Phone [facility] Primary Care Provider [phone] Reason for Visit * Reason Onset Date Comments Call Back Request 10/09/2024 Encounter Details Date Type Department Care Team ([facility] st Contact Info) Description 10/09/2024 Telephone [facility] MEDICINE [address] [place], [place] [phone] [facility] [address] [place] [address] Call Back Request Social History Tobacco Use [...] - thanks. * Telephone Encounter - Estela Tejada RN - 10/12/2024 9:47 AM EST Called [...] do external/abdominal? * Telephone Encounter - Jazzmine Acharyago - 10/09/2024 2:48 PM EST Tc joseph Tong with [facility] to clarify if its necessary to do another ultrasound (transvaginal) because the pt refuses to perform it. Any questions contact: [phone] documented in this encounter Plan of Treatment Upcoming Encounters Date Type Department Care Team (Late st Contact Info) Description 12/16/2024 11:[address] [facility] [address] [place], [place] [phone] Ginger Perez FNP [address] [place] [address] 01/19/2025 1:30 PM EDT Clinical Support [facility] [address] [place] [address] Frida Knapp, OZZY documented as of this encounter Visit Diagnoses Not on filedocumented in this encounter Additional Health Concerns Assessment Noted Time PHQ-9 Depression Total Score: 13 024 11:27 AM EDT documented as of this encounter Care Teams Veterinary Surgeon Relationship Specialty Start Date End Date Ginger Perez [place] [address] PCP - General Family Medicine 08/13/22 [facility] Home Care 11/01/22 documented as of this encounter
== END 2024-11-26 15:52 | disposition home or self-care (01) ==
LOC: HO.ENCR 14:47
PROVIDERS: PCP Registered Nurse; Visit Provider Registered Nurse Diabetes Educator
DX: E11.9 Type 2 diabetes mellitus without complications (principal); Z79.4 Long term (current) use of insulin
CPT/HCPCS: 99211

== ENCOUNTER → 2024-11-26 14:46 | Outpatient (BNVA) | payer MEDICAID, SELFPAY | PROVIDERS: PCP Registered Nurse; Visit Provider Registered Nurse Diabetes Educator ==

== ENCOUNTER 2025-01-06 13:58 | Outpatient (AMB) | payer MEDICAID, SELFPAY ==
[2025-01-06 14:10] VITALS: BP 122/66; PULSE 76; O2SAT 98; BMI 35.5
--- NOTE | 2025-01-06 14:10 | A.OFFVIS_ITS ---
Vital Signs 01/06/25 14:10 Height 5 ft 2 in Weight 194 lb 0.108 oz BMI 35.5 BP 122/66 Blood Pressure Location Rt brachial Position Sitting Pulse 76 Pulse Source Pulse Oximeter Pulse Oximetry (%) 98 Oxygen Delivery Method Room Air Intake Visit Reasons: Subclinical hyperthyroidism Intake Note: Patient present today for Subclinical Hyperthyroidism. Assistant Producer Required: No Accompanied by: Self / Same As Patient Allergies mushroom Allergy (Verified 01/06/25 14:14) Anaphylaxis HPI Comments Details: 59-year-old sex assigned at female with preferred pronouns he/him, coming in today for initial evaluation of subclinical hyperthyroidism. Here today with CORRECTIVE THERAPY AIDE TEACHER Jing Sees Cheryl Crocker APRN for DM, not addressed today. HPI no prior thyroid disorders or treatments Labs from 09/14/2024 showed TSH low at 0.12 with free T4 normal at 1.01, repeat labs 10/01/2024 showed TSH improved but still low at 0.27 with free T4 of 0.91. TPO and TSH receptor antibodies were negative. Reports palpitations. Intermittent. Reports diarrhea. Stool incontinence. No hair changes. Reports heat intolerance. Reports increased sweating. Postmenopausal. Reports increased anxiety and tremors. Reports low energy, denies changes in appearance of eyes or vision changes. Patient denies any difficulty swallowing, pain on swallowing or voice changes or difficulty breathing. Patient denies any history of childhood neck radiation. Denies having ever used lithium, amiodarone or biotin supplements. Patient denies any family history of thyroid cancer . Sister had thyroid disease. Quit smoking , used to smoke when you were younger. Denies any recent contrast exposure, preceding viral illness. No history of heart disease, no osteoporosis. Interval history 11/17/2024, TSH improved further to 0.31, free T4 0.92. She did not do the antibodies. Physical exam General: sitting comfortably in no acute distress HEENT: normocephalic/atraumatic, moist oral mucosa Neck: supple, symmetrical, no thyromegaly , Cardiac: normal heart sounds Pulm: normal breath sounds B/L, no added breath sounds Abd: not distended, no tenderness Extremities: no edema, no signs of myxedema Laboratory Tests 09/14/24 10/01/24 13:25 09:58 TSH 0.12 L 0.27 L Free T4 1.01 0.91 Thyroid Peroxidase Ab <1 TSH Receptor Ab <1.00 Laboratory Tests 10/01/24 11/17/24 09:58 08:55 TSH 0.31 L Free T4 0.92 Thyroid Peroxidase Ab <1 TSH Receptor Ab <1.00 [facility] Medical History (Updated 11/24/24 @ 07:32 by Cheryl An NP) Hypoglycemia Fatty liver Subclinical hyperthyroidism Seizures Vitamin D deficiency Chronic pain syndrome Spondylosis 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 myelopathy Disc degeneration, lumbar Hip osteoarthritis Sacroiliitis Illiterate Morbid obesity due to excess calories Diabetes mellitus type 2, controlled, without complications Essential hypertension Hyperlipidemia LDL goal <100 Panic attacks VELASQUEZ on CPAP History of tremor Gender dysphoria Anxiety Depression Asthma Epilepsy Hypertension Surgical History History of esophagogastroduodenoscopy (EGD) Hx of laparoscopic gastric banding Family History Father CVD (cardiovascular disease) Mother Hypertension Social History Household Members: Children and None Household Members Other:: 2 dogs Are you a primary primary care coordinator to a significant other at home: No Do you presently have visiting nurse or other home services: Yes Alcohol intake: former Patient Tobacco Use Status: Former Tobacco user Substance Use Type: Marijuana Physical Exam Vital Signs: Last Vital Signs Pulse 76 01/06/25 14:10 BP 122/66 01/06/25 14:10 Pulse Ox 98 01/06/25 14:10 Oxygen Delivery Method Room Air 01/06/25 14:10 BMI result Body Mass Index 35.5 Assessment & Plan Assessment & Plan (1) Subclinical hyperthyroidism: Code(s): E05.90 - Thyrotoxicosis, unspecified without thyrotoxic crisis or storm Category: Medical Plan: 59-year-old female presenting for follow up of subclinical hyperthyroidism. Repeat labs in October showed improvement in labs with TSH now up to 0.31, free T4 still normal at 0.92., TPO and TSH receptor antibodies were negative. She does not have any preceding viral illness to suggest thyroiditis. No recent contrast exposure. Patient is not on any biotin supplements. I discussed with the patient the mild elevation in thyroid hormone levels categorizable as subclinical hyperthyroidism, explaining it is slightly increased thyroid activity that does not currently warrant medical therapy. Criteria for treatment is age greater than 65, TSH level less than 0.1, history of heart disease or osteoporosis. I emphasized the importance of monitoring and proposed a follow-up blood test in 6 months. Plan - TSH, free T4, total T3 and TSI antibodies to be done in 6 months sometime in fall 2024 Note: She sees she level in [facility] [place] for type 2 diabetes mellitus, however patient expressed that she would like to switch her care to me for diabetes as well going forward, I have asked her to make a follow up appointment in 6 weeks for type 2 diabetes mellitus. She was also complaining about a rash on her left foot today, foot examined, left foot has a patchy brown hyperpigmentation on the medial side. No tenderness, warmth, redness. Could possibly be a fungal infection versus eczematous patch. I told her to contact her primary care provider for evaluation of this. Plan See above Orders: Orders Thyroid Stimulating Hormone 6 Months E0 - Thyrotoxicosis, unspecified without thyrotoxic crisis or storm Triiodothyronine T3 Total 6 Months E0 - Thyrotoxicosis, unspecified without thyrotoxic crisis or storm Free T4 (Free Thyroxine) 6 Months E0 - Thyrotoxicosis, unspecified without thyrotoxic crisis or storm Thyroid Stimulating Immunoglob 6 Months E0 - Thyrotoxicosis, unspecified without thyrotoxic crisis or storm Coding Level of Care Code Est Pt Level 3 (27686) Diagnoses Subclinical hyperthyroidism E0
--- OUTSIDE RECORDS SUMMARY | 2025-01-06 15:16 | XMS_ITS | Clinical Summary ---
Author Organization [facility] it Address [address] [place] [address] Care Team Providers Care Mail Technician Name Role Phone [facility] Primary Care Provider [phone] Medications ursodioL (ACTIGALL) 300 mg capsule TAKE 2 CAPSULES BY MOUTH EVERY DAY 60 capsule 5 4 Active wheat dextrin (Benefiber Sugar Free, dextrin,) 3 gram/4 gram powder in packet DISSOLVE 1 PACKET IN 8 OUNCES OF WATER AND TAKE BY MOUTH EVERY DAY FOR 7 DAYS 30 each 1 4 Active simethicone (MYLICON) 80 mg chewable tablet CHEW 1 TABLET BY MOUTH EVERY 6 HOURS NEEDED FOR GAS 120 tablet 1 5 Active Pain Relief ES, acetaminophen, 500 mg tablet TAKE 2 TABLETS BY MOUTH EVERY 8 HOURS 180 tablet 1 5 Active nutritional drink (Ensure High Protein) liquidIndicati ons:Postsurgic al malabsorption, not elsewhere classified TAKE 333 ML BY MOUTH TWICE DAILY 67088 mL 5 Active nutritional drink (Ensure High Protein) liquidIndicati ons:Postsurgic al malabsorption, not elsewhere classified TAKE 333 ML BY MOUTH TWICE DAILY FOR 30 DAYS 1200 mL 1 4 025 Discontinued Surgical History Surgery Date Site/Laterality Comments LAPAROSCOPIC GASTRIC BANDING 2011 and 01/15/2014 PROCEDURE: LAP ADJUSTABLE GASTRIC BAND; COMMENT: first band slipped, was replaced Medical History Medical History Date Comments Anxiety DX:Anxiety Asthma DX:Asthma Depression DX:Depression Diabetes mellitus type 2, uncomplicated (CMS/HCC V24, CMS/HCC V28) DX:Diabetes mellitus type 2, uncomplicated ([facility]) Hypertension DX:Hypertension LAP-BAND surgery status 12/02/2018 DX:LAP-B AND surgery status; COMMENT: x2 Morbid obesity with BMI of 5 0.0-59.9, adult (CMS/[facility] V24, [facility] V28) 12/02/2018 DX:Morbid obesity wit h BMI of 50.0-59.9, adult ([facility]) VELASQUEZ (obstructive sleep apnea) DX :VELASQUEZ (obstructive sleep apnea) Seizures ([facility] V24, [facility] V28) DX:Seizures ([facility]) Covid-19 DX:COVID-19; COM MENT: patient reports no exposure and has not had any testing done Family History Medical History Relation Name Comments No Known Problems Brother No Known Problems Daughter No Known Problems Father No Known Problems Mother No Known Problems Sister No Known Problems Son Autoimmune disease Neg Hx Breast cancer Neg Hx Colon cancer Neg Hx Coronary artery disease Neg Hx Diabetes Neg Hx Heart attack Neg Hx Heart failure Neg Hx Hyperlipidemia Neg Hx Hypertension Neg Hx Mental illness Neg Hx Prostate cancer Neg Hx Sleep apnea Neg Hx Thyroid disease Neg Hx Relation Name Status Comments Brother Daughter Father Mother Sister Son Social History Tobacco Use Types Packs/Day Years Used Date Smoking Tobacco: Never Smokeless Tobacco: Never Alcohol Use Standard Drinks/Week Comments No 0 (1 standard drink = 0.6 oz pur e alcohol) Comments Unknown Sex and Gender Information Value Date Recorded Sex Assigned at Not on file Legal Sex Female 5:01 AM EST Gender Identity Not on file Sexual Orientation Not on file Obstetrics History Last Filed Vital Signs Vital Sign Reading Time Taken Comments Blood Pressure 143/76 06/16/2024 9:44 AM EDT Pulse 80 06/16/2024 9:44 AM EDT Temperature - - Respiratory Rate - - Oxygen Saturation - - Inhaled Oxygen Concentration - - Weight 97.1 kg (214 lb) 06/16/2024 9:44 AM EDT Height 157.5 cm (5' 2 ) 06/16/2024 9:44 AM EDT Body Mass Index 39.14 06/16/2024 9:44 AM EDT Plan of Treatment Upcoming Encounters Date Type Department Care Team (Late st Contact Info) Description 02/16/2025 1:15 PM EDT Office Visit Bariatric Surgery - [place] [address] [address] [place] [id number] Omer Beaver MD [address] [address] [place] [address] Health Maintenance Due Date Last Done Comments Breast Cancer Screening 1963 Diabetes: Annual Foot Exam 1973 Diabetes: Annual Retina Eye Exam 1973 DTaP,Tdap,and Td Vaccines (1 - Tdap) 1982 Pneumococcal Vaccine: 50+ Ye ars (1 of 2 - PCV) 1982 Pneumococcal Vaccine: Pediat rics (0 to 5 Years) and At-Risk Patients (6 to 64 Years) (1 of 2 - PCV) 1982 Cervical Cancer Screening: P ap Smear 1984 Zoster Vaccines (1 of 2) 2013 RSV Immunization Adult Patie nts (1 - Risk 60-74 years 1-dose series) 2023 Cholesterol Screening (Lipid Panel) 03/31/2024 Colorectal Cancer Screening: Colonoscopy 03/31/2024 Depression Screening 03/31/2024 Diabetes: Annual Urine Albumin-Creatinine Ratio (uACR) 03/31/2024 Diabetes: Blood Sugar Contro l Test (HGBA1C) 03/31/2024 HIV Screening 03/31/2024 Hepatitis C Screening 03/31/2024 Social Influencers of Health Screening 03/31/2024 COVID-19 Vaccine ( - 2023-2 5 season) 2024 Diabetes: Annual GFR (Glomer ular Filtration Rate) 03/10/2025 03/10/2024 Hypertension/CHF/CAD Annual BMP Blood Test 03/10/2025 03/10/2024 Influenza Vaccine (Season Ended) 2025 HIB Vaccines Aged Out No longer eligi ble based on patient's age to complete this topic HPV Vaccines Aged Out No longer eligi ble based on patient's age to complete this topic Hepatitis A Vaccines Aged Out No long er eligible based on patient's age to complete this topic Hepatitis B Vaccines Aged Out No long er eligible based on patient's age to complete this topic IPV Vaccines Aged Out No longer eligi ble based on patient's age to complete this topic MMR Vaccines Aged Out No longer eligi ble based on patient's age to complete this topic Meningococcal ACWY Vaccine Aged Out N o longer eligible based on patient's age to complete this topic Meningococcal B Vaccine Aged Out No l onger eligible based on patient's age to complete this topic RSV Immunization Patients Un ronit 20 months Aged Out No longer eligible b ased on patient's age to complete this topic Varicella Vaccines Aged Out No longer eligible based on patient's age to complete this topic Insurance MEDICAID - [place] Care Teams Mail Technician Relationship Specialty Start Date End Date [facility] [address] [address] PCP - General 12/18/23
== END 2025-01-06 14:36 | disposition home or self-care (01) ==
LOC: HO.ENCR 13:58
PROVIDERS: PCP Registered Nurse; Visit Provider Student in an Organized Health Care Education/Training Program
DX: E05.90 Thyrotoxicosis, unspecified without thyrotoxic crisis or storm (principal)
CPT/HCPCS: 99213

== ENCOUNTER → 2025-01-06 13:58 | Outpatient (BNVA) | payer MEDICAID, SELFPAY | PROVIDERS: PCP Registered Nurse; Visit Provider Student in an Organized Health Care Education/Training Program | DX: E05.90 Thyrotoxicosis, unspecified without thyrotoxic crisis or storm (principal) | CPT/HCPCS: 99212 ==

== ENCOUNTER 2025-01-27 10:32 | Outpatient (AMB) | payer MEDICAID, SELFPAY ==
--- NOTE | 2025-01-27 10:48 | A.OFFVIS_ITS ---
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: 60 min Cut Off Saw Grader Required: Yes Cut Off Saw Grader Language: Clinical Review Nurse Services: Cut Off Saw Grader Offered & Declined Accompanied by: Self / Same As Patient Allergies mushroom Allergy (Verified 01/06/25 14:14) Anaphylaxis HPI Comprehensive Diabetes Asmnt Most Recent Diabetes Results: Hemoglobin A1c 8.4 % 09/15/18 Microalb/Creat Ratio TNP 01/31/23 Cholesterol 146 mg/dL (<200) 09/14/24 HDL Cholesterol 39 mg/dL (>40) L 09/14/24 Triglycerides 123 mg/dL (<150) 09/14/24 Creatinine 0.91 mg/dL (0.5-1.4) 11/17/24 Blood Urea Nitrogen 14 mg/dL (9-16) 11/17/24 Sodium 143 mmol/L (135-145) 11/17/24 Potassium 4.2 mmol/L (3.3-5.1) 11/17/24 Chloride 110 mmol/L (96-108) H 11/17/24 Carbon Dioxide 25 mmol/L (22-29) 11/17/24 Calcium 9.7 mg/dL (8.4-10.2) 11/17/24 AST 20 U/L (5-31) 11/17/24 ALT 15 U/L (0-31) 11/17/24 Total Protein 7.6 g/dL (6.5-8.0) 11/17/24 Albumin 4.0 g/dL (3.5-5.0) 11/17/24 [facility] Medical History (Updated 11/24/24 @ 07:32 by Cheryl An NP) Hypoglycemia Fatty liver Subclinical hyperthyroidism Seizures Vitamin D deficiency Chronic pain syndrome Spondylosis 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 myelopathy Disc degeneration, lumbar Hip osteoarthritis Sacroiliitis Illiterate Morbid obesity due to excess calories Diabetes mellitus type 2, controlled, without complications Essential hypertension Hyperlipidemia LDL goal <100 Panic attacks VELASQUEZ on CPAP History of tremor Gender dysphoria Anxiety Depression Asthma Epilepsy Hypertension Surgical History History of esophagogastroduodenoscopy (EGD) Hx of laparoscopic gastric banding Family History Father CVD (cardiovascular disease) Mother Hypertension Social History Household Members: Children and None Household Members Other:: 2 dogs Are you a primary pharmacy care coordinator to a significant other at home: No Do you presently have visiting nurse or other home services: Yes Alcohol intake: former Patient Tobacco Use Status: Former Tobacco user Substance Use Type: Marijuana Assessment & Plan Assessment & Plan (1) Diabetes mellitus type 2, controlled, without complications: Comment: IDDM Code(s): E11.9 - Type 2 diabetes mellitus without complications Qualifiers: Diabetes mellitus long term care phlebotomist insulin use: with skilled nursing use Qualified Code(s): E11.9 - Type 2 diabetes mellitus without complications; Z79.4 - predatory animal exterminator (current) use of insulin Plan: Patient at visit to set up an insert Dexcom G7 with cell phone cuong Instructed patient sensors water proof you can shower, or swim do not submerge sensor in water for over 30 minutes Is sensor falls off cannot put back in you need to replace sensor, customer service number given to patient for sensor replacement Downloaded Dexcom G7 cuong on patient's cellphone, entered clinic code to connect patient's Dexcom clarity Sensor placed on the left arm Patient left visit with sensor in warmup Instructed patient that we may need to show insurance company that he is experiencing hypoglycemia in order for insurance to continue coverage of sensor. Patient has upcoming appointment with Dr. Hall on 02/17/2025 Patient will follow-up with Diabetes Education same day Reminded Pt that if symptoms do not match sensor still needs to check fingersticks. Portions of this note were created using voice recognition software, please excuse any words or phrases that may have been misinterpreted. Coding Level of Care Code Est Pt Level 1 (15084) Diagnoses Controlled type 2 diabetes mellitus without complication, with long-term current use of insulin E11.9; Z79.4 Diabetes mellitus long term care phlebotomist insulin use: with skilled nursing use
--- OUTSIDE RECORDS SUMMARY | 2025-01-27 11:35 | XMS_ITS | Encounter Summary ---
Author Organization [employer] Address [address] [place] [address] Care Team Providers Care [employer] Art Teacher Name Role Phone [facility] Primary Care Provider [phone] Reason for Visit * Reason Onset Date Comments Medication Question 11/12/2024 Med Refill 11/12/2024 Encounter Details Date Type Department Care Team ([facility] st Contact Info) Description 11/12/2024 Telephone [facility] [address] [place] [address] [facility] [address] [place] [address] Medication Question; Med Refill Social History Tobacco [...] from pt regarding Lidocaid Patch and Clonazepam. Dining Service Worker advised pt med refill request was sent yesterday. documented in this encounter Plan of Treatment Upcoming Encounters Date Type Department Care Team (Late st Contact Info) Description 03/04/2025 1:00 PM EDT Clinical Support [facility] [address] [place] [address] Frida Knapp RN documented as of this encounter Visit Diagnoses Not on filedocumented in this encounter Additional Health Concerns Assessment Noted Time PHQ-9 Depression Total Score: 13 024 11:27 AM EDT documented as of this encounter Care Teams [employer] Art Teacher Relationship Specialty Start Date End Date Ginger Perez FNP [address] [place] [address] PCP - General Family Medicine 08/13/22 [facility] 11/01/22 documented as of this encounter
== END 2025-01-27 11:35 | disposition home or self-care (01) ==
LOC: HO.ENCR 10:33
PROVIDERS: PCP Registered Nurse; Visit Provider Registered Nurse Diabetes Educator
DX: E11.9 Type 2 diabetes mellitus without complications (principal); Z79.4 Long term (current) use of insulin

== ENCOUNTER → 2025-01-27 10:32 | Outpatient (BNVA) | payer MEDICAID, SELFPAY | PROVIDERS: PCP Registered Nurse; Visit Provider Registered Nurse Diabetes Educator | DX: E11.9 Type 2 diabetes mellitus without complications (principal); Z79.4 Long term (current) use of insulin | CPT/HCPCS: 99211 ==

== ENCOUNTER 2025-02-01 13:14 | Outpatient (AMB) | payer MEDICAID, SELFPAY ==
--- NOTE | 2025-02-01 13:30 | MHC.OFFVIS ---
Vital Signs 02/01/25 13:33 Height 5 ft 2 in Weight 187 lb 6.287 oz BMI 34.3 BP 103/62 Blood Pressure Location Lt radial Position Sitting Pulse 80 Intake Visit Reasons: Fatty Liver Intake Note: [place] presents in the office as a follow up for fatty liver. CC: States that they are throwing up blood. When they use the bathroom they ahve to use the powder in her coffee but she has a lot of blood when she has a BM. States that they did the COLO and was told she was okay. Take Salesperson Sewing Machines Required: No Allergies mushroom Allergy (Verified 02/01/25 14:21) Anaphylaxis HPI Comments Details: This a 58 y F->M with PMH of obesity s/p lap band x3 (Sd), T2DM, on gender affirming hormone therapy, who is here for chronic liver disease . Referral reviewed and based on elastography from last year. However report reviewed and does not actually mention the sheer wave value in the body of the report. Interpretation is made for possible CALD. Based on most recent imaging and labs no evidence of advanced fibrosis Fib 4 1.24. Getting testosterone shots - she is unsure who is monitoring the levels. Of note - that CT Abd/pel also shows slipped lap band. Pt is aware and working with Dr Beaver for ? repeat lab band vs sleeve gastrectomy. Pt also ovedue for CRC screening. Mentions getting cologuard kit in mail but unsure how to go about it due to poor health literacy. 02/01/25: Here for follow up. Reports was able to establish care with bariatric surgery and got the lap band removed last year. Also got colonoscopy done this year at [facility]. Pt now here for rectal bleeding. Says during the colonoscopy the doctor saw something in the rectum but didn't remove it. Again, these records are not available. Pt says he did not follow up with the GI there. In addition, he also reports intermittent N/V since the lap band removal. Says occasionally sees streaks of blood. Reports getting multiple transfusions during the surgery and is worried about internal bleeding. [facility] Medical History Hypoglycemia Fatty liver Subclinical hyperthyroidism Seizures Vitamin D deficiency Chronic pain syndrome Spondylosis 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 myelopathy Disc degeneration, lumbar Hip osteoarthritis Sacroiliitis Illiterate Morbid obesity due to excess calories Diabetes mellitus type 2, controlled, without complications Essential hypertension Hyperlipidemia LDL goal <100 Panic attacks VELASQUEZ on CPAP History of tremor Gender dysphoria Anxiety Depression Asthma Epilepsy Hypertension Surgical History History of esophagogastroduodenoscopy (EGD) Hx of laparoscopic gastric banding Family History Father CVD (cardiovascular disease) Mother Hypertension Social History Household Members: Children and None Household Members Other:: 2 dogs Are you a primary lawn care worker to a significant other at home: No Do you presently have visiting nurse or other home services: Yes Alcohol intake: former Patient Tobacco Use Status: Former Tobacco user Substance Use Type: Marijuana Review of Systems Const All systems reviewed & are unremarkable except as noted in HPI and below Physical Exam Vital Signs: Last Vital Signs Pulse 80 02/01/25 13:33 BP 103/62 02/01/25 13:33 BMI result Body Mass Index 34.3 No apparent distress Nonicteric Abdomen soft, nondistended Alert and oriented x3, normal gait Assessment & Plan Assessment & Plan (1) Bright red rectal bleeding: Code(s): K62.5 - Hemorrhage of anus and rectum Category: Medical (2) Nausea & vomiting: Code(s): R11.2 - Nausea with vomiting, unspecified Category: Medical (3) Fatty liver disease, nonalcoholic: Code(s): K76.0 - Fatty (change of) liver, not elsewhere classified Category: Medical (4) Hx of laparoscopic gastric banding: Comment: 1999 and 2013 Code(s): Z98.84 - Bariatric surgery status Category: Surgical (5) Uncontrolled type 2 diabetes mellitus: Code(s): E11.65 - Type 2 diabetes mellitus with hyperglycemia Category: Medical Qualifiers: Glycemic state: with hyperglycemia Qualified Code(s): E11.65 - Type 2 diabetes mellitus with hyperglycemia (6) Morbid obesity due to excess calories: Code(s): E66.01 - Morbid (severe) obesity due to excess calories Category: Medical Plan # Slipped lap band: # N/V: REports lap band was removed last year. Since then has been having intermittent N/V with streaks of blood. Attempted to reassure the pt that most recent CBC argues against clinically significant bleeding. He is concerned if this is 2/2 to lap band removal. Will get records. # Rectal bleeding: Reports started a couple of months ago, shortly after her colo. He did not follow up with GI at [facility] for this and we do not have records of the colonoscopy report. Plan: - Release of records signed Msg sent to confirm with pt's sister bake room worker to confirm where they would like to cont GI follow to avoid seeing 3 GI specialists at the same time # Fatty liver: normal LFTs, low Fib 4 - low likelihood of advanced fibrosis or cirrhosis at this time. Pt advised to cont to work on weight loss, diabetes and HLD control. She was also advised to review proper monitoring of gender affirming hormone replacement therapy as excessive unmonitored testosterone levels may also cause hepatotoxicity. Coding Level of Care Code Est Pt Level 3 (91953) Diagnoses Bright red rectal bleeding K62.5 Nausea & vomiting R11.2 Fatty liver disease, nonalcoholic K76.0 Hx of laparoscopic gastric banding Z98.84 Uncontrolled type 2 diabetes mellitus with hyperglycemia E11.65 Glycemic state: with hyperglycemia Morbid obesity due to excess calories E66.01
[2025-02-01 13:33] VITALS: BP 103/62; PULSE 80; BMI 34.3
--- OUTSIDE RECORDS SUMMARY | 2025-02-01 14:15 | XMS_ITS | Encounter Summary ---
Author Organization [employer] Address [address] [facility] [address] [place] [address] Care Team Providers Care Cardiac Rehabilitation Specialist Name Role Phone [facility] Primary Care Provider [phone] Reason for Visit * Reason Comments Med Refill Encounter Details Date Type Department Care Team ([facility] st Contact Info) Description 01/31/2025 Refill [facility] [address] [place], [place] [phone] [facility] [address] [place] [address] Chronic pain syndrome Social History Tobacco Use Types Packs/Day Years [...] housing situation today? I have lamar guzman 12/07/[address] you li ve. Do you have problems with any of the following? Pests such as bugs, ants, or mice 12/07/2024 Food Insecurity Answer Date Recorded Within the past 12 months, y ou worried that your food would run out before you got money to buy more: Never True 12/07/2024 Within the past 12 months,th e food you bought just didn't last and you didn't have enough money to get more: Never True 03/2025 Transportation Answer Date Recorded In the past 12 months, has l ack of transportation kept you from medical appts, meetings, work or from getting things needed for daily living? No 12/07/2024 Utilities Answer Date Recorded In the past 12 months, has t he electric, gas, oil or water company threatened to shut off services in your home? No 12/07/2024 Depression Answer Date Recorded Patient Health Questionnaire-2 Score 5 03/16/2024 Internet Access Answer Date Recorded Internet Access Q1 Yes 12/07/2024 Internet Access Q2 Not on file 12/07/2024 Comments No Sex and Gender Information Value [...] Description 03/04/2025 1:00 PM EDT Clinical Support [facility] [address] [place] [address] Frida Knapp, OZZY documented as of this encounter Visit Diagnoses Diagnosis Chronic pain syndrome documented in this encounter Additional Health Concerns Assessment Noted Time PHQ-9 Depression Total Score: 13 024 11:27 AM EDT documented as of this encounter Care Teams Cardiac Rehabilitation Specialist Relationship Specialty Start Date End Date Ginger Perez FNP [address] [place] [address] PCP - General Family Medicine 08/13/22 [facility] [place] Home Care 11/01/22 documented as of this encounter
== END 2025-02-01 15:16 | disposition home or self-care (01) ==
LOC: HO.HGI 13:14
PROVIDERS: PCP Registered Nurse; Visit Provider Internal Medicine
DX: K62.5 Hemorrhage of anus and rectum (principal); R11.2 Nausea with vomiting, unspecified; K76.0 Fatty (change of) liver, not elsewhere classified; Z98.84 Bariatric surgery status; E11.65 Type 2 diabetes mellitus with hyperglycemia; E66.01 Morbid (severe) obesity due to excess calories
CPT/HCPCS: 99213

== ENCOUNTER → 2025-02-01 13:14 | Outpatient (BNVA) | payer MEDICAID, SELFPAY | PROVIDERS: PCP Registered Nurse; Visit Provider Internal Medicine | DX: K62.5 Hemorrhage of anus and rectum (principal); K76.0 Fatty (change of) liver, not elsewhere classified; R11.2 Nausea with vomiting, unspecified; E11.65 Type 2 diabetes mellitus with hyperglycemia; E66.01 Morbid (severe) obesity due to excess calories; Z98.84 Bariatric surgery status; Z68.34 Body mass index [BMI] 34.0-34.9, adult | CPT/HCPCS: 99212 ==

== ENCOUNTER 2025-02-17 13:36 | Outpatient (AMB) | payer MEDICAID, SELFPAY ==
--- NOTE | 2025-02-17 14:32 | A.OFFVIS_ITS ---
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: 30 min Allergies mushroom Allergy (Verified 02/17/25 13:49) Anaphylaxis [facility] Medical History Hypoglycemia Fatty liver Subclinical hyperthyroidism Seizures Vitamin D deficiency Chronic pain syndrome Spondylosis 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 myelopathy Disc degeneration, lumbar Hip osteoarthritis Sacroiliitis Illiterate Morbid obesity due to excess calories Diabetes mellitus type 2, controlled, without complications Essential hypertension Hyperlipidemia LDL goal <100 Panic attacks VELASQUEZ on CPAP History of tremor Gender dysphoria Anxiety Depression Asthma Epilepsy Hypertension Surgical History History of esophagogastroduodenoscopy (EGD) Hx of laparoscopic gastric banding Family History Father CVD (cardiovascular disease) Mother Hypertension Social History Household Members: Children and None Household Members Other:: 2 dogs Are you a primary geriatric personal care aide to a significant other at home: No Do you presently have visiting nurse or other home services: Yes Alcohol intake: former Patient Tobacco Use Status: Former Tobacco user Substance Use Type: Marijuana Assessment & Plan Assessment & Plan (1) Diabetes mellitus type 2, controlled, without complications: Comment: IDDM Code(s): E11.9 - Type 2 diabetes mellitus without complications Qualifiers: Diabetes mellitus termite treater helper insulin use: with prison use Qualified Code(s): E11.9 - Type 2 diabetes mellitus without complications; Z79.4 - longterm (current) use of insulin Plan: Personal Continuous Glucose Monitor: Patients CGM information reviewed, Pt uses Dexcom G7 with warp picker Sensor data: Patient has been experiencing episodes of hypoglycemia over the past several weeks. She has stopped all diabetes medications. Message sent to provider to send prescription for Dexcom G7 sensors Reviewed with patient how to treat hypoglycemia with rule of 15s Patient reports he treats hypoglycemia with glucose tabs or fruit juice Patient has VNA support at home Patient able to insert sensor with assistance at home without issue.? Patient will follow-up with tube maker in 3 months Portions of this note were created using voice recognition software, please excuse any words or phrases that may have been misinterpreted. Coding Level of Care Code Est Pt Level 1 (32472) Diagnoses Controlled type 2 diabetes mellitus without complication, with long-term current use of insulin E11.9; Z79.4 Diabetes mellitus termite treater helper insulin use: with termite treater helper use Results AMB Hemoglobin A1c 2 AMB Hemoglobin A1c 5.9 % Last Edit by RIVAS Lutz on 02/17/25 14:00
== END 2025-02-17 15:29 | disposition home or self-care (01) ==
LOC: HO.ENCR 13:37
PROVIDERS: PCP Registered Nurse; Visit Provider Registered Nurse Diabetes Educator
DX: E11.9 Type 2 diabetes mellitus without complications (principal); Z79.4 Long term (current) use of insulin

== ENCOUNTER 2025-02-17 13:36 | Outpatient (AMB) | payer MEDICAID, SELFPAY ==
[2025-02-17 13:39] VITALS: BP 86/60; PULSE 73; O2SAT 98; BMI 35.3
--- NOTE | 2025-02-17 13:39 | A.OFFVIS_ITS ---
Vital Signs 3 02/17/25 13:39 Height 5 ft 2 in Weight 192 lb 14.472 oz BMI 35.3 BP 86/60 L Blood Pressure Location Rt brachial Position Sitting Pulse 73 Pulse Source Pulse Oximeter Pulse Oximetry (%) 98 Oxygen Delivery Method Room Air Intake Visit Reasons: T2DM and Subclinical hyperthyroidism Intake Note: Patient present today for Type 2 Diabetes Mellitus and Subclinical hyperthyroidism. Last Diabetic eye exam: 2023 Last Podiatry Visit: Doesn't have one Random Glucose: 92 mg/dl HgA1C: 5.9% Research Epidemiologist Required: No Accompanied by: Self / Same As Patient Allergies mushroom Allergy (Verified 02/17/25 13:49) Anaphylaxis Medication List - Last Reconciled 02/17/25 by Sania Hall MD acetaminophen (Pain Relief Extra Strength (acetaminophen)) 1,000 mg PO Q8H albuterol sulfate 90 mcg/actuation (Proventil HFA) 1 puff inhalation QID PRN atorvastatin 20 mg PO BEDTIME bisacodyl (Dulcolax (bisacodyl)) 20 mg (4 x 5 mg) PO ONCE 1 day blood-glucose meter (FreeStyle [place] Lite kit) As directed cholecalciferol (vitamin D3) 50 mcg PO QAM clonazepam 1 mg PO TID CPAP (CPAP Machine/Device) As directed diclofenac sodium 1% 1 - 2 grams topical BID PRN fluticasone propion-salmeterol 250-50 mcg/dose (Advair Diskus) 1 ea inhalation BID food supplemt, lactose-reduced (Ensure oral liquid) ea PO BID FreeStyle Lite Strips (blood sugar diagnostic) USE TO TEST BLOOD SUGAR THREE TIMES DAILY to confirm sensor readings or if low NS gabapentin 600 mg PO BEDTIME glucose 4 grams PO Q15M PRN ibuprofen 600 mg PO Q6H PRN lancets (TRUEplus Lancets) As directed tid lancets (FreeStyle Lancets) Three times a day levetiracetam (Keppra) 500 mg PO BID lidocaine 5% (Lidoderm) 1 patch topical DAILY lisinopril-hydrochlorothiazide 20-25 mg 2 tabs PO QAM melatonin 5 mg PO QPM naproxen 250 mg PO BID PRN olmesartan 5 mg PO QAM pantoprazole 40 mg PO DAILY pen needle, diabetic (Pentips Pen Needle) 1 ea miscellaneous DAILY prazosin 5 mg PO BEDTIME propranolol 40 mg PO BID psyllium husk (Reguloid (aspartame)) 3 grams PO QAM simethicone 80 mg PO Q6H PRN tirzepatide (Mounjaro) mg subcut QWEEK tizanidine 4 mg PO Q8H PRN ursodiol 600 mg PO DAILY HPI Comments Details: 59-year-old sex assigned at female with preferred pronouns he/him, coming in today for follow up of type 2 diabetes mellitus. He was previously seeing Cheryl Crocker APRN for diabetes. Now he would like to establish with me for both diabetes and I also see him for subclinical hyperthyroidism. Type 2 diabetes mellitus Diagnosed in 30s in [place] , was diagnosed on regular blood work current meds Was on Mounjaro 5 mg weekly ( hasnt had it for the past 2 weeks , had been on it for 8 months) Prior meds Previous regimen : metformin 1000mg twice a day , Tresiba 28 units, Ozempic 1 mg Qwkly , Jardiance 10mg. Then sometime in 2024 Ozempic was switched to Mounjaro. s.p Lap band x3 in [place] with Dr. Beaver? She was losing weight and so insulin , metformin and jardiance was stopped October 2024 due to hypoglycemia Chart review shows she lost 30 to 50 lbs between Sep to October 2024, she is unable to tell me when the last lap band was ? And recenlty following with GI there as been some concern She is following with bariatric surgery, and at some point pending some sort of testing where she is not eating much for now when only allowed to eat certain soups. Last Diabetic eye exam: 05/2024, has retinopathy, has cataract, 1 year fup Last Podiatry Visit: has neuropathy , mild, hasnt seen in a while, previously was seeing very 2 month in [place] nephropathy: eGFR >60 measured on 11/24. ARB microalbumin < 5.0 as measured on 12/2022. HLD, on atorvastatin 20 mg daily. Last LDL 83 as measured on 09/14/2024. Denies CAD,PVD, CVA Denies chest pain, dyspnea or symptoms of claudication Random Glucose: 92 mg/dl HgA1C: 5.9% 02/17/25 [facility] G7 data downloaded from February 04 to 02/17/2025 Average glucose 142 mg/dL G FL 6.7% Standard deviation 38 mg/dL Coefficient of variation 27% Within target range 86% High 12% Very high 2% Less than 1% very low interpretation : Patient is having hypoglycemic episodes both fasting as well as postprandially. Treats lows with juice, fast carbs Subclinical hyperthyroidism: Not addressed today HPI no prior thyroid disorders or treatments Labs from 09/14/2024 showed TSH low at 0.12 with free T4 normal at 1.01, repeat labs 10/01/2024 showed TSH improved but still low at 0.27 with free T4 of 0.91. TPO and TSH receptor antibodies were negative. Reports palpitations. Intermittent. Reports diarrhea. Stool incontinence. No hair changes. Reports heat intolerance. Reports increased sweating. Postmenopausal. Reports increased anxiety and tremors. Reports low energy, denies changes in appearance of eyes or vision changes. Patient denies any difficulty swallowing, pain on swallowing or voice changes or difficulty breathing. Patient denies any history of childhood neck radiation. Denies having ever used lithium, amiodarone or biotin supplements. Patient denies any family history of thyroid cancer . Sister had thyroid disease. Quit smoking , used to smoke when you were younger. Denies any recent contrast exposure, preceding viral illness. No history of heart disease, no osteoporosis. Interval history 11/17/2024, TSH improved further to 0.31, free T4 0.92. She did not do the antibodies. Physical exam General: sitting comfortably in no acute distress HEENT: normocephalic/atraumatic, moist oral mucosa Neck: supple, symmetrical, no thyromegaly , Cardiac: normal heart sounds Pulm: normal breath sounds B/L, no added breath sounds Abd: not distended, no tenderness Extremities: no edema, no signs of myxedema Laboratory Tests 09/14/24 10/01/24 13:25 09:58 TSH 0.12 L 0.27 L Free T4 1.01 0.91 Thyroid Peroxidase Ab <1 TSH Receptor Ab <1.00 Laboratory Tests 10/01/24 11/17/24 09:58 08:55 TSH 0.31 L Free T4 0.92 Thyroid Peroxidase Ab <1 TSH Receptor Ab <1.00 Laboratory Tests 01/31/23 09/14/24 11/17/24 10:15 13:25 08:55 Hgb 13.7 Hct 42.1 Plt Count 210 Glucose (Clinic) Hgb A1c (Clinic) AST 20 ALT 15 Triglycerides 123 Cholesterol 146 LDL Cholesterol, Calc 83 HDL Cholesterol 39 L Urine Creatinine 93.04 Urine Microalbumin < 5.0 02/17/25 02/17/25 13:51 13:53 Hgb Hct Plt Count Glucose (Clinic) 92 Hgb A1c (Clinic) 5.9 AST ALT Triglycerides Cholesterol LDL Cholesterol, Calc HDL Cholesterol Urine Creatinine Urine Microalbumin PFSH Medical History Hypoglycemia Fatty liver Subclinical hyperthyroidism Seizures Vitamin D deficiency Chronic pain syndrome Spondylosis 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 myelopathy Disc degeneration, lumbar Hip osteoarthritis Sacroiliitis Illiterate Morbid obesity due to excess calories Diabetes mellitus type 2, controlled, without complications Essential hypertension Hyperlipidemia LDL goal <100 Panic attacks VELASQUEZ on CPAP History of tremor Gender dysphoria Anxiety Depression Asthma Epilepsy Hypertension Surgical History History of esophagogastroduodenoscopy (EGD) Hx of laparoscopic gastric banding Family History Father CVD (cardiovascular disease) Mother Hypertension Social History Household Members: Children and None Household Members Other:: 2 dogs Are you a primary healthcare consulting manager to a significant other at home: No Do you presently have visiting nurse or other home services: Yes Alcohol intake: former Patient Tobacco Use Status: Former Tobacco user Substance Use Type: Marijuana Physical Exam Vital Signs: Last Vital Signs Pulse 73 02/17/25 13:39 BP 86/60 L 02/17/25 13:39 Pulse Ox 98 02/17/25 13:39 Oxygen Delivery Method Room Air 02/17/25 13:39 BMI result Body Mass Index 35.3 Office Procedures Glucose Monitoring Details Details: See HPI 91586 - Glucose monitoring, continuous-physician I&R Procedure code (CPT) selection complete Results AMB Hemoglobin A1c 2 AMB Hemoglobin A1c 5.9 % Last Edit by RIVAS Lutz on 02/17/25 14:00 Results Reviewed Results Reviewed: Laboratory Last Values Glucose (Clinic) 92 mg/dL (60-115) 02/17/25 13:51 Hgb A1c (Clinic) 5.9 % (4.0-6.0) 02/17/25 13:53 Assessment & Plan Assessment & Plan (1) Uncontrolled type 2 diabetes mellitus: Code(s): E11.65 - Type 2 diabetes mellitus with hyperglycemia Category: Medical Qualifiers: Glycemic state: with hypoglycemia Coma presence: without coma Q ualified Code(s): E11.649 - Type 2 diabetes mellitus with hypoglycemia without coma Plan: 59-year-old female with a history of type 2 diabetes mellitus with complications of neuropathy, retinopathy, who is status post lap band X 3, with a recent weight loss earlier in the year of about 50 lb, resulting in hypoglycemia, now A1c today 02/17/2025 down to 5.9%. She was on Tresiba, Jardiance, metformin all of which has been stopped. She is now on Mounjaro 5 mg weekly which she has not taken for the past 2 weeks due to ongoing hypoglycemic episodes. Dexcom data reviewed today and she continues to have hypoglycemic episodes sometimes fasting sometimes post meal. She is on a modified diet right now because she is pending some testing with her bariatric surgeon for which she is only allowed to drink soups. At this time especially since this diet is going on I have told her to hold Mounjaro for now. I will see her back in 5 weeks. We will send her a prescription for Dexcom G7 for monitoring of hypoglycemia. Plan: -hold Mounjaro for now -sent prescription for Dexcom G7 for monitoring of hypoglycemia with type 2 diabetes mellitus -obtain records from bariatric surgery -hypoglycemia education done (2) Subclinical hyperthyroidism: Code(s): E05.90 - Thyrotoxicosis, unspecified without thyrotoxic crisis or storm Category: Medical Plan: Not addressed today 59-year-old female presenting for follow up of subclinical hyperthyroidism. Repeat labs in October showed improvement in labs with TSH now up to 0.31, free T4 still normal at 0.92., TPO and TSH receptor antibodies were negative. She does not have any preceding viral illness to suggest thyroiditis. No recent contrast exposure. Patient is not on any biotin supplements. I discussed with the patient the mild elevation in thyroid hormone levels categorizable as subclinical hyperthyroidism, explaining it is slightly increased thyroid activity that does not currently warrant medical therapy. Criteria for treatment is age greater than 65, TSH level less than 0.1, history of heart disease or osteoporosis. I emphasized the importance of monitoring and proposed a follow-up blood test in 6 months. Plan - TSH, free T4, total T3 and TSI antibodies to be done in 6 months sometime in fall 2024 (3) Hypoglycemia: Code(s): E16.2 - Hypoglycemia, unspecified Category: Medical Plan: See above Plan See above Orders: Orders 2 AMB Glucose Monitoring Today E11.65 - Type 2 diabetes mellitus with hyperglycemia AMB Hemoglobin A1c Today E11.9 - Type 2 diabetes mellitus without complications, Z13.9 - Encounter for screening, unspecified, Z79.4 - termite renewal inspector (current) use of insulin Medications: New 2 blood-glucose sensor (Dexcom G7 Sensor device) As directed every 10 days 3 ea 6RF E11.649 - Type 2 diabetes mellitus with hypoglycemia without coma, E16.2 - Hypoglycemia, unspecified blood-glucose,cottrell operator,cont (Dexcom G7 Professional Athletes Coach) As directed 1 ea 0RF E11.649 - Type 2 diabetes mellitus with hypoglycemia without coma, E16.2 - Hypoglycemia, unspecified Coding Level of Care Code Est Pt Level 4 (92239) Diagnoses Uncontrolled type 2 diabetes mellitus with hypoglycemia without coma E11.649 Glycemic state: with hypoglycemia Coma presence: without coma Subclinical hyperthyroidism E05.90 Hypoglycemia E16.2 CPT Codes Details - CPT: 78621 - Glucose monitoring, continuous-physician I&R ([id number]) Time Spent (min) 30
[2025-02-17 13:54] LABS: Glucose, Whole Blood 92 mg/dL (60-115)
--- OUTSIDE RECORDS SUMMARY | 2025-02-17 15:36 | XMS_ITS | Encounter Summary ---
Author Organization [employer] Address [address] [place] [address] Care Team Providers Care Flight Crew Scheduler Name Role Phone [facility] Primary Care Provider [phone] Reason for Visit * Reason Comments Med Refill Encounter Details Date Type Department Care Team (Late st Contact Info) Description 02/04/2025 Refill [facility] [address] [place], [place] [phone] [facility] [address] [place] [address] Type 2 diabetes mellitus with chronic kidney disease, with long-term current use of insulin, unspecified CKD stage (CMS/HCC) Social History Tobacco Use Types Packs/Day Years [...] Description 03/04/2025 1:00 PM EDT Clinical Support [facility] [address] [place] [address] Frida Knapp RN documented as of this encounter Visit Diagnoses Diagnosis Type 2 diabetes mellitus with chronic kidney disease, with long-term current use of insulin, unspecified CKD stage (CMS/HCC) documented in this encounter Additional Health Concerns Assessment Noted Time PHQ-9 Depression Total Score: 13 024 11:27 AM EDT documented as of this encounter Care Teams Flight Crew Scheduler Relationship Specialty Start Date End Date Ginger Perez FNP [address] [place] [address] PCP - General Family Medicine 08/13/22 [facility] [place] 11/[place]/22 documented as of this encounter
== END 2025-02-17 15:30 | disposition home or self-care (01) ==
LOC: HO.ENCR 13:37
PROVIDERS: PCP Registered Nurse; Visit Provider Student in an Organized Health Care Education/Training Program
DX: E11.649 Type 2 diabetes mellitus with hypoglycemia without coma (principal); E05.90 Thyrotoxicosis, unspecified without thyrotoxic crisis or storm; E16.2 Hypoglycemia, unspecified; Z13.9 Encounter for screening, unspecified; E11.9 Type 2 diabetes mellitus without complications; Z79.4 Long term (current) use of insulin
CPT/HCPCS: 95251; 99214

== ENCOUNTER → 2025-02-17 13:36 | Outpatient (BNVA) | payer MEDICAID, SELFPAY | PROVIDERS: PCP Registered Nurse; Visit Provider Student in an Organized Health Care Education/Training Program | DX: E11.649 Type 2 diabetes mellitus with hypoglycemia without coma (principal); Z79.4 Long term (current) use of insulin; E05.90 Thyrotoxicosis, unspecified without thyrotoxic crisis or storm | CPT/HCPCS: 82947; 83036; 99211; 99212 ==

== ENCOUNTER 2025-03-02 15:13 | Outpatient (AMB) | payer MEDICAID, SELFPAY ==
[2025-03-02 15:16] VITALS: BP 88/64; PULSE 83; O2SAT 95; BMI 36.0
--- NOTE | 2025-03-02 15:16 | A.OFFVIS_ITS ---
Vital Signs 03/02/25 15:16 Height 5 ft 2 in Weight 196 lb 13.965 oz BMI 36.0 BP 88/64 L Blood Pressure Location Rt brachial Position Sitting Pulse 83 Pulse Source Pulse Oximeter Pulse Oximetry (%) 95 Oxygen Delivery Method Room Air Intake Visit Reasons: T2DM and Subclinical hyperthyroidism Intake Note: Patient present today for Type 2 Diabetes Mellitus and Subclinical hype rthyroidism. Last seen by Dr. Hall on 02/17/2025. Last Diabetic eye exam: 2023 Last Podiatry Visit: Doesn't have one Random Glucose: 103 mg/dl HgA1C: 5.9% 02/17/2025 Exchange Consultant Required: No Accompanied by: Self / Same As Patient Allergies mushroom Allergy (Verified 03/02/25 15:24) Anaphylaxis Medication List - Last Reconciled 03/02/25 by Kingston Dean MD acetaminophen (Pain Relief Extra Strength (acetaminophen)) 1,000 mg PO Q8H albuterol sulfate 90 mcg/actuation (Proventil HFA) 1 puff inhalation QID PRN atorvastatin 20 mg PO BEDTIME bisacodyl (Dulcolax (bisacodyl)) 20 mg (4 x 5 mg) PO ONCE 1 day blood-glucose meter (FreeStyle Minford Lite kit) As directed blood-glucose sensor (Dexcom G7 Sensor device) As directed every 10 days blood-glucose,bulldozer engineer,cont (Dexcom G7 Feltmaker And Weigher) As directed cholecalciferol (vitamin D3) 50 mcg PO QAM clonazepam 1 mg PO TID CPAP (CPAP Machine/Device) As directed diclofenac sodium 1% 1 - 2 grams topical BID PRN fluticasone propion-salmeterol 250-50 mcg/dose (Advair Diskus) 1 ea inhalation BID food supplemt, lactose-reduced (Ensure oral liquid) ea PO BID FreeStyle Lite Strips (blood sugar diagnostic) USE TO TEST BLOOD SUGAR THREE TIMES DAILY to confirm sensor readings or if low NS gabapentin 600 mg PO BEDTIME glucose 4 grams PO Q15M PRN ibuprofen 600 mg PO Q6H PRN lancets (TRUEplus Lancets) As directed tid lancets (FreeStyle Lancets) Three times a day levetiracetam (Keppra) 500 mg PO BID lidocaine 5% (Lidoderm) 1 patch topical DAILY lisinopril-hydrochlorothiazide 20-25 mg 2 tabs PO QAM melatonin 5 mg PO QPM naproxen 250 mg PO BID PRN olmesartan 5 mg PO QAM pantoprazole 40 mg PO DAILY pen needle, diabetic (Pentips Pen Needle) 1 ea miscellaneous DAILY prazosin 5 mg PO BEDTIME propranolol 40 mg PO BID psyllium husk (Reguloid (aspartame)) 3 grams PO QAM simethicone 80 mg PO Q6H PRN tirzepatide (Mounjaro) mg subcut QWEEK tizanidine 4 mg PO Q8H PRN ursodiol 600 mg PO DAILY HPI Comments Details: The patient is a 59-year-old female presenting with diabetes mellitus management and associated hypoglycemia. Her A1c is 6.6%, and she is not currently on diabetes medication as her previous doctor discontinued them. She experiences dizziness with low blood sugar, although her sensor shows less than 1% of low readings. The patient reports weight gain after stopping Mounjaro, which was previously covered by insurance. She had fewer hypoglycemic episodes on Mounjaro, but it was discontinued due to frequent lows. She is considering restarting Mounjaro The patient reports a nail disorder, which she managed by self-draining blood from under the nail. She has been advised against self-treatment to prevent infection and referred to a defense travel administrator. 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 Disc degeneration, lumbar Hip osteoarthritis Sacroiliitis Illiterate Morbid obesity due to excess calories Diabetes mellitus type 2, controlled, without complications Essential hypertension Hyperlipidemia LDL goal <100 Panic attacks VELASQUEZ on CPAP History of tremor Gender dysphoria Anxiety Depression Asthma Epilepsy Hypertension Surgical History History of esophagogastroduodenoscopy (EGD) Hx of laparoscopic gastric banding Family History Father CVD (cardiovascular disease) Mother Hypertension Social History Household Members: Children and None Household Members Other:: 2 dogs Are you a primary acute care occupational therapist to a significant other at home: No Do you presently have visiting nurse or other home services: Yes Alcohol intake: former Patient Tobacco Use Status: Former Tobacco user Substance Use Type: Marijuana Physical Exam Vital Signs: BMI result Body Mass Index 36.0 Const Other: There was a small blister on the left 1st toe but appears to be healing and no sign of infection Assessment & Plan Assessment & Plan (1) Subclinical hyperthyroidism: Code(s): E05.90 - Thyrotoxicosis, unspecified without thyrotoxic crisis or storm Category: Medical Plan: Mild suppression of TSH with improvement. No need for any further follow up at this point. If TSH suppresses to less than 0.1, patient should be referred back to endocrinology (2) Hypoglycemia: Code(s): E16.2 - Hypoglycemia, unspecified Category: Medical Plan: 1. Diabetes Mellitus The patient's diabetes is managed without medication, with an A1c of 6.6%. Consideration is given to restarting Mounjaro at 5 mg to manage blood sugar levels and reduce hypoglycemic episodes. The patient should monitor for low blood sugars and report changes. 2. Hypoglycemia The patient experiences dizziness with low blood sugar levels. The plan includes monitoring and potential reintroduction of Mounjaro to stabilize glucose levels. 3. Weight Gain The patient has gained weight after stopping Mounjaro. Reintroduction of Mounjaro may assist in weight management. 4. Nail Disorder The patient is referred to a defense travel administrator for management of the nail disorder and advised against self-treatment to prevent infection. We discussed the management of diabetes mellitus and the potential reintroduction of Mounjaro to manage blood sugar levels and reduce hypoglycemic episodes. I advised the patient to monitor for low blood sugars and report any significant changes. We also discussed the referral to a defense travel administrator for the nail disorder and the importance of avoiding self-treatment to prevent infection. Follow-up was planned in three months to reassess the patient's condition and treatment efficacy. - Monitor blood sugar levels closely and report any significant changes. - Avoid self-treatment of nail disorder to prevent infection. - Follow up with the defense travel administrator as referred. - Check your feet daily looking for any signs of infection, drainage, redness, ulceration and seek medical attention if this occurs. Break in shoes gradually and do not wear open-toed shoes or walk stocking footed or barefooted. The patient had an opportunity to ask questions regarding treatment plan. The patient expressed understanding and agreement with the above treatment plan. The patient is aware they should contact our office by phone for worsening glucose readings or for any low blood sugars which may warrant a change in diabetes medication. Compliance is encouraged with medications and any followup testing/consults which may have been ordered. Patient was informed and verbally consented to the use of an ambient scribe for clinic note documentation during this visit. Medications: New tirzepatide (Mounjaro) 5 mg (0.5 mL) subcut QWEEK 2 mL 5RF Coding Level of Care Code Est Pt Level 3 (29484) Diagnoses Subclinical hyperthyroidism E05.90 Hypoglycemia E16.2
[2025-03-02 15:42] LABS: Glucose, Whole Blood 103 mg/dL (60-115)
--- OUTSIDE RECORDS SUMMARY | 2025-03-02 16:04 | XMS_ITS | Encounter Summary ---
Author Organization [employer] Address [address] [facility] [address] [place] [address] Care Team Providers Care Hot Mill Worker Name Role Phone [facility] Primary Care Provider [phone] Reason for Visit * Reason Comments Med Refill Encounter Details Date Type Department Care Team (Late st Contact Info) Description 02/04/2025 Refill [facility] [address] [place], [place] [id number] [facility] [address] [place] [address] Type 2 diabetes mellitus with chronic kidney [...] Description 03/04/2025 1:00 PM EDT Clinical Support [facility] [address] [place] [address] Frida Knapp RN documented as of this encounter Visit Diagnoses Diagnosis Type 2 diabetes mellitus with chronic kidney disease, with long-term current use of insulin, unspecified CKD stage (CMS/HCC) documented in this encounter Additional Health Concerns Assessment Noted Time PHQ-9 Depression Total Score: 13 024 11:27 AM EDT documented as of this encounter Care Teams Hot Mill Worker Relationship Specialty Start Date End Date Ginger Perez FNP [address] [place] [address] PCP - General Family Medicine 08/13/22 [facility] [place]22 documented as of this encounter
--- OUTSIDE RECORDS SUMMARY | 2025-03-02 16:04 | XMS_ITS | Clinical Summary ---
Author Organization [address] [facility] Address [address] [place] [address] Phone Care Team Providers Care Unemployment Benefits Claims Taker Name Role Phone [facility] Primary Care Provider [phone] Allergies Active Allergy Reactions Criticality Noted Date Comments Iodinated Contrast Media 09/15/2024 Mushroom Anaphylaxis High 02/05/2024 Medications ursodioL (ACTIGALL) 300 mg capsule TAKE 2 CAPSULES BY MOUTH EVERY DAY 60 capsule 5 08/07/20 24 Active wheat dextrin (Benefiber Sugar Free, dextrin,) 3 gram/4 gram powder in packet DISSOLVE 1 PACKET IN 8 OUNCES OF WATER AND TAKE BY MOUTH EVERY DAY FOR 7 DAYS 30 each 1 08/27/20 24 Active simethicone (MYLICON) 80 mg chewable tablet CHEW & SWALLOW 1 TABLET BY MOUTH EVERY 6 HOURS NEEDED FOR GAS 120 each 1 01/28/20 25 Active acetaminophen (TYLENOL) 500 mg tablet TAKE 2 TABLETS BY MOUTH EVERY 8 HOURS 180 tablet 1 01/28/20 25 Active nutritional drink (Ensure High Protein) liquidIndications :Postsurgical malabsorption, not elsewhere classified Take 333 mL by mouth 2 (two) times a day. 60230 mL 02/12/20 25 025 Active zinc gluconate 50 mg tabletIndications :Postoperative malabsorption Take 1 tablet (50 mg total) by mouth 1 (one) time each day. 30 tablet 02/23/20 25 026 Active nutritional drink (Ensure High Protein) liquidIndications :Postsurgical malabsorption, not elsewhere classified Take 333 mL by mouth 2 (two) times a day. 31037 mL 01/15/20 25 025 Discontinued Active Problems Problem Noted Date Diagnosed Date Anxiety 02/16/2025 Depression 02/16/2025 Severe obesity (CMS/HCC V24, CMS/[facility] V28) 2024 Complex sleep apnea syndrome 02/16/2025 Gait instability 05/11/2024 Physical deconditioning 05/11/2024 Renal cyst 02/25/2024 Renal calculi 11/18/2023 Chronic liver disease 10/03/2023 Overview (02/16/2025): ? 03/13/2023- abdominal ultrasound with liver elastography ordered through weight mngmt clinic which patient is no longer attending. Reports with hepatic steatosis with evidence of advanced chronic liver disease ? Referral to Illiterate 06/04/2023 Hypoventilation 06/04/2023 Chronic pain 09/29/2022 Overview (02/16/2025): all over previously seen by pain mngmt; not interested in injections. Tizanidine PRN. Gabapentin 900mg in evening. Lidocaine patches PRN. Currently has PT 2x/weekly for chronic knee pain. Gender dysphoria in adult 09/29/2022 Overview (02/16/2025): Interested in pursuing top and bottom gender reassignment surgery Not a candidate for hormone therapy Obstructive sleep apnea 09/29/2022 Overview (02/16/2025): Compliant with BiPAP [place] [facility] [place]. Dr. Temple Seizure disorder ([facility] [place]24, [facility] V28) 09/03 Overview (02/16/2025): followed [place] 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 EEG's normal. Per neurology notes, possible dyskenisa s/t hx of antipsychotic medications which patient is no longer taking. Not currently taking any anti- seizure medications. No seizure episodes >2 months. Episodes triggered by emotional stress. Chronic post-traumatic stress disorder 0 Diabetes mellitus ([facility] V24, [facility] V28) Headache 05/25/2020 Essential hypertension 05/25/2020 Mixed hyperlipidemia 05/25/2020 Seizures ([facility] V24, [facility] V28) 05/25/2020 Coarse tremors 11/12/2019 Hypertensive disorder 08/24/2014 Overview (02/16/2025): Olmesartan 5mg daily Propranolol 40mg b.i.d for tachycardia Maintenance: BMP: [...] prescriptions without first consulting health care provider Asthma 08/18/2012 Dyslipidemia 08/18/2012 Overview (02/16/2025): Atorvastatin 40mg Mixed anxiety and depressive disorder 04/18/2012 Obesity 04/18/2012 Encounters Date Type Department Care Team Description 02/16/2025 1:15 PM EDT Office Visit Bariatric Surgery - [address] [place] [address] Omer Beaver MD Postgastrectomy malabsorption (Primary Dx); Gastrointestinal hemorrhage, unspecified gastrointestinal hemorrhage type from Last 3 Months Surgical History Surgery Date Site/Laterality Comments LAPAROSCOPIC GASTRIC BANDING 2011 and 01/15/2014 PROCEDURE: LAP ADJUSTABLE GASTRIC BAND; COMMENT: first band slipped, was replaced Medical History Medical History Date Comments Anxiety DX:Anxiety Asthma DX:Asthma Depression DX:Depression Diabetes mellitus type 2, uncomplicated ([facility] V24, [facility] V28) DX:Diabetes mellitus type 2, uncomplicated ([facility]) Hypertension DX:Hypertension LAP-BAND surgery status 12/02/2018 DX:LAP-B AND surgery status; COMMENT: x2 Morbid obesity with BMI of 5 0.0-59.9, adult ([facility] V24, [facility] V28) 12/02/2018 DX:Morbid obesity wit h BMI of 50.0-59.9, adult ([facility]) VELASQUEZ (obstructive sleep apnea) DX :VELASQUEZ (obstructive sleep apnea) Seizures (CMS/HCC V24, CMS/HCC V28) DX:Seizures (HCC) Covid-19 DX:COVID-19; COM MENT: patient reports no [...] Sign Reading Time Taken Comments Blood Pressure 120/71 02/16/2025 1:27 PM EDT Pulse 80 02/16/2025 1:27 PM EDT Temperature 36.6 C (97.8 F) 02/16/2025 1:27 PM EDT Respiratory Rate - - Oxygen Saturation - - Inhaled Oxygen Concentration - - Weight 86.2 kg (190 lb) 02/16/2025 1:27 PM EDT Height 157.5 cm (5' 2 ) 02/16/2025 1:27 PM EDT Body Mass Index 34.75 02/16/2025 1:27 PM EDT Plan of Treatment Upcoming Encounters Date Type Department Care Team (Late st Contact Info) Description 04/08/2025 1:50 PM EDT Consult Gastroenterology - [address] [facility] [address] [facility] [address] [place] [phone] Martina Santizo PA [address] [facility] [address] [place] [address] 07/06/2025 1:30 PM EST Office Visit Bariatric Surgery - [place] [address] [facility] [address] [place] [address] Omer Beaver MD [address] [place] [address] Health Maintenance Due Date Last Done Comments Breast Cancer Screening 1963 Diabetes: Annual Foot Exam 1973 Diabetes: Annual Retina Eye Exam 1973 Hepatitis B Vaccines (3 of 3 - 19+ 3-dose series) 11/04/2019 06/25/2019, 05/06/2019 Zoster Vaccines (2 of 2) 06/07/2023 04/12/2023 RSV Immunization Adult Patients (1 - Risk 60-74 years 1-dose series) 2023 Colorectal Cancer Screening: Colonoscopy 03/31/2024 Diabetes: Annual Urine Albumin-Creatinine Ratio (uACR) 03/31/2024 Social Influencers of Health Screening 03/31/2024 COVID-19 Vaccine ( season) 2024 Depression Screening 03/16/2025 03/16/2024 Influenza Vaccine (Season Ended) 2025 06/05/2023, 06/21/2022, 07/06/2019, Additional history exists Diabetes: Blood Sugar Control Test (HGBA1C) 06/17/2025 12/16/2024 Diabetes: Annual GFR (Glomerular Filtration Rate) 11/17/2025 11/17/2024, 03/10/2024 Hypertension/CHF/CAD Annual BMP Blood Test 11/17/2025 11/17/2024, 03/10/2024 Cervical Cancer Screening: Pap Smear 09/08/2027 09/08/2024 Cholesterol Screening (Lipid Panel) 09/14/2029 09/14/2024 DTaP,Tdap,and Td Vaccines (3 - Td or Tdap) 06/21/2032 06/21/2022, 02/07/2010 Hepatitis C Screening Completed 09/25/2022 Pneumococcal Vaccine: 50+ Years Completed 04/12/2023, 04/20/2012, 06/05/2007 Pneumococcal Vaccine: Pediatrics (0 to 5 Years) and At-Risk Patients (6 to 64 Years) Completed 04/12/2023, 04/20/2012, 06/05/2007 HIV Screening Completed 10/01/2024, 09/14/2024 HIB Vaccines Aged Out No longer eligi [...] to complete this topic RSV Immunization Patients Under 20 months Aged Out No longer eligible based on patient's age to complete this topic Varicella Vaccines Aged Out No longer eligible based on patient's age to complete this topic Procedures Procedure Name Priority Date/Time Associated Diagnosis Comments ZINC Routine 02/16/2025 1:51 PM EDT Postgastrectomy malabsorption VITAMIN D 25 HYDROXY Routine 02/16/2025 1:51 PM EDT Postgastrectomy malabsorption VITAMIN B12 Routine 02/16/2025 1:51 PM EDT Postgastrectomy malabsorption IRON AND TIBC Routine 02/16/2025 1:51 PM EDT Postgastrectomy malabsorption FOLATE Routine 02/16/2025 1:51 PM EDT Postgastrectomy malabsorption CALCIUM Routine 02/16/2025 1:51 PM EDT Postgastrectomy malabsorption ALBUMIN Routine 02/16/2025 1:51 PM EDT Postgastrectomy malabsorption from Last 3 Months Results * Iron and TIBC (02/16/2025 1:51 PM EDT) Iron 90 40 - 150 mcg/dL LAB CHEMISTRY METHOD 02/16/2025 7:17 PM EDT [facility] TIBC 299 250 - 450 mcg/dL LAB CHEMISTRY METHOD 02/16/2025 7:17 PM EDT [facility] Iron Saturation 30 15 - 50 % LAB CHEMISTRY METHOD 02/16/2025 7:17 PM EDT [facility] Blood Venous blood specimen / Unknown Venipuncture / Unknown 02/16/2025 1:51 PM EDT 02/16/2025 1:51 PM EDT us Omer Beaver MD LAB BLOOD ORDERABLES Final R esult Performing Organization Address City/[facility]/ZIP Co de Phone Number [facility] [address] [place] [address], [place] [phone] * (ABNORMAL) Zinc (02/16/2025 1:51 PM EDT) Pathologist [facility] Zinc 55(L) 60 - 130 ug/dL 02/19/2025 11:31 AM EDT [facility] Comment: Elevated results may be due to sample collected in a non-certified trace element-free tube. This test was developed and the performance characteristics determined by [facility]. It has not been cleared or approved by the FDA. The laboratory is regulated under CLIA as qualified to perform high-complexity testing. This test is used for patient testing purposes. It should not be regarded as investigational or for research. Test performed at [facility], [address] , [place] [address] Piedad Chan MD, PhD - Project Estimator Blood Venous blood specimen / Unknown Venipuncture / Unknown 02/16/2025 1:51 PM EDT 02/16/2025 1:51 PM EDT us Omer Beaver MD LAB BLOOD ORDERABLES Final R esult Performing Organization Address City/[facility]/ZIP Co de Phone Number [facility] [address] [place] [address] * Vitamin D 25 hydroxy (02/16/2025 1:51 PM EDT) Vit D, 25-Hydroxy 52.8 30.0 - 80.0 ng/mL LAB CHEMISTRY METHOD 02/16/2025 7:25 PM EDT [facility] Blood Venous blood specimen / Unknown Venipuncture / Unknown 02/16/2025 1:51 PM EDT 02/16/2025 1:51 PM EDT us Omer Beaver MD LAB BLOOD ORDERABLES Final R esult Performing Organization Address City/[facility]/ZIP Co de Phone Number [facility] [address] [place] [address], [place] [phone] * (ABNORMAL) Folate (02/16/2025 1:51 PM EDT) Folate 19.0(H) 2.8 - 17.0 ng/ml LAB CHEMISTRY METHOD 02/16/2025 7:17 PM EDT [facility] Blood Venous blood specimen / Unknown Venipuncture / Unknown 02/16/2025 1:51 PM EDT 02/16/2025 1:51 PM EDT us Omer Beaver MD LAB BLOOD ORDERABLES Final R esult Performing Organization Address [facility]/ZIP Co de Phone Number [facility] [address] [place] [address], [place] [phone] * Vitamin B12 (02/16/2025 1:51 PM EDT) Vitamin B-12 494 250 - 900 pcg/mL LAB CHEMISTRY METHOD 02/16/2025 7:17 PM EDT [facility] Blood Venous blood specimen / Unknown Venipuncture / Unknown 02/16/2025 1:51 PM EDT 02/16/2025 1:51 PM EDT us Omer Beaver MD LAB BLOOD ORDERABLES Final R esult [facility] [address] [place] [address], [place] [phone] * Calcium (02/16/2025 1:51 PM EDT) Calcium 9.6 8.5 - 10.5 mg/dL LAB CHEMISTRY METHOD 02/16/2025 7:17 PM EDT [facility] Blood Venous blood specimen / Unknown Venipuncture / Unknown 02/16/2025 1:51 PM EDT 02/16/2025 1:51 PM EDT Omer Beaver MD LAB BLOOD ORDERABLES Final R esult Performing Organization Address City/[facility]/ZIP Co de Phone Number [facility] [address] [place] [address], [place] [phone] * Albumin (02/16/2025 1:51 PM EDT) Albumin 3.6 3.2 - 5.0 g/dL LAB CHEMISTRY METHOD 02/16/2025 6:43 PM EDT [facility] Blood Venous blood specimen / Unknown Venipuncture / Unknown 02/16/2025 1:51 PM EDT 02/16/2025 1:51 PM EDT Omer Beaver MD LAB BLOOD ORDERABLES Final R esult [facility] [address] [place] [address], [place] [phone] from Last 3 Months Insurance MEDICAID - [place] Care Teams Unemployment Benefits Claims Taker Relationship Specialty Start Date End Date [facility] [address] [place] [phone] PCP - General 12/18/23
== END 2025-03-02 16:01 | disposition home or self-care (01) ==
LOC: HO.ENCR 15:14
PROVIDERS: PCP Registered Nurse; Visit Provider Internal Medicine Endocrinology, Diabetes & Metabolism
DX: E05.90 Thyrotoxicosis, unspecified without thyrotoxic crisis or storm (principal); E16.2 Hypoglycemia, unspecified
CPT/HCPCS: 99213

== ENCOUNTER → 2025-03-02 15:13 | Outpatient (BNVA) | payer MEDICAID, SELFPAY | PROVIDERS: PCP Registered Nurse; Visit Provider Internal Medicine Endocrinology, Diabetes & Metabolism | DX: E11.9 Type 2 diabetes mellitus without complications (principal); E05.90 Thyrotoxicosis, unspecified without thyrotoxic crisis or storm; E16.2 Hypoglycemia, unspecified | CPT/HCPCS: 82947; 99212 ==

== ENCOUNTER 2025-03-04 16:20 | Outpatient (REF) | payer MEDICAID, SELFPAY ==
--- OUTSIDE RECORDS SUMMARY | 2025-03-04 16:22 | XMS_ITS | Encounter Summary ---
Author Organization [employer] Address [address] [facility] [address] [place] [address] Care Team Providers Care License Clerk Name Role Phone [facility] Primary Care Provider [phone] Reason for Visit * Reason Comments Med Refill Encounter Details Date Type Department Care Team (Late st Contact Info) Description 02/04/2025 Refill [facility] [address] [place], [place] [id number] [facility] [address] [place] [address] Type 2 diabetes mellitus with chronic kidney [...] Care Team (Late st Contact Info) Description 03/15/2025 11:30 AM EDT Office Visit [facility] [address] [place] [phone] Ginger Perez [address] [address] 06/07/2025 1:00 PM EDT Clinical Support [facility] [address] [place] [address] Frida Knapp RN documented as of this encounter Visit Diagnoses Diagnosis Type 2 diabetes mellitus with chronic kidney disease, with long-term current use of insulin, unspecified CKD stage (CMS/HCC) documented in this encounter Additional Health Concerns Assessment Noted Time PHQ-9 Depression Total Score: 13 024 11:27 AM EDT documented as of this encounter Care Teams License Clerk Relationship Specialty Start Date End Date Ginger Perez FNP [address] [place] [phone] PCP - General Family Medicine 08/13/22 [facility] 11/[place]/22 documented as of this encounter
--- OUTSIDE RECORDS SUMMARY | 2025-03-04 16:23 | XMS_ITS | Clinical Summary ---
Author Organization [address] [facility] Address [address] [place] [address] Phone Care Team Providers Care Offensive Coordinator Name Role Phone [facility] Primary Care Provider [phone] Allergies Active Allergy Reactions Criticality Noted Date [...] by mouth 2 (two) times a day. 59366 mL 02/12/20 25 025 Active zinc gluconate 50 mg tabletIndications :Postoperative malabsorption Take 1 tablet (50 mg total) by mouth 1 (one) time each day. 30 tablet 02/23/20 25 026 Active nutritional drink (Ensure High Protein) liquidIndications :Postsurgical malabsorption, not elsewhere classified Take 333 mL by mouth 2 (two) times a day. 83996 mL 01/15/20 25 025 Discontinued Active Problems Problem Noted Date Diagnosed Date Anxiety 02/16/2025 Depression 02/16/2025 Severe obesity (CMS/HCC V24, CMS/[facility] V28) 2024 Complex sleep apnea syndrome 02/16/2025 [...] Overview (02/16/2025): Compliant with BiPAP Followed by [facility] neurology and sleep clinic. Dr. 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 EEG's normal. Per neurology notes, possible dyskenisa s/t hx of antipsychotic medications which patient is no longer taking. Not currently taking any anti- seizure medications. No seizure episodes >2 months. Episodes triggered by emotional stress. Chronic post-traumatic stress disorder 0 Diabetes mellitus ([facility] V24, [facility] V28) Headache 05/25/2020 Essential hypertension 05/25/2020 Mixed hyperlipidemia 05/25/2020 Seizures ([facility] V24, [facility] V28) 05/25/2020 Coarse tremors 11/12/2019 Hypertensive disorder [...] PM EDT Office Visit Bariatric Surgery - [address] [place] [address] Omer Beaver MD Postgastrectomy malabsorption (Primary Dx); Gastrointestinal hemorrhage, unspecified gastrointestinal hemorrhage type from Last 3 Months Surgical History Surgery Date Site/Laterality Comments LAPAROSCOPIC GASTRIC BANDING 2011 and 01/15/2014 PROCEDURE: LAP ADJUSTABLE GASTRIC BAND; COMMENT: first band slipped, was replaced Medical History Medical History Date Comments Anxiety DX:Anxiety Asthma DX:Asthma Depression DX:Depression Diabetes mellitus type 2, uncomplicated ([facility] V24, [facility] V28) DX:Diabetes mellitus type 2, uncomplicated ([facility]) Hypertension DX:Hypertension LAP-BAND surgery status 12/02/2018 DX:LAP-B AND surgery status; COMMENT: x2 Morbid obesity with BMI of 5 0.0-59.9, adult ([facility] V24, [facility] V28) 12/02/2018 DX:Morbid obesity wit h BMI of 50.0-59.9, adult ([facility]) VELASQUEZ (obstructive sleep apnea) DX :VELASQUEZ (obstructive [...] 1:50 PM EDT Consult Gastroenterology - [address] [facility] 299 [facility] [address] [place] [phone] Martina Santizo PA 299 [facility] [address] [place] [address] 07/06/2025 1:30 PM EST Office Visit Bariatric Surgery - [place] [address] [facility] [address] [place] [address] Omer Beaver MD [address] [place] [phone] Health Maintenance Due Date Last Done Comments [...] 2024 Depression Screening 03/16/2025 03/16/2024 Influenza Vaccine (#1) 2025 , 06/21/2022, 07/06/2019, Additional history exists Diabetes: Blood [...] LAB CHEMISTRY METHOD 02/16/2025 7:[address] [facility] TIBC 299 250 - 450 mcg/dL LAB CHEMISTRY METHOD 02/16/2025 7:[address] [facility] Iron Saturation 30 15 - 50 % LAB CHEMISTRY METHOD 02/16/2025 7:[address] [facility] Blood Venous blood specimen / Unknown Venipuncture / Unknown 02/16/2025 1:51 PM EDT 02/16/2025 1:51 PM EDT us Omer Beaver MD LAB BLOOD ORDERABLES Final R esult Performing Organization Address City/[facility]/ZIP Co de Phone Number [facility] [address] [place] [address], [place] [phone] * (ABNORMAL) Zinc (02/16/2025 1:51 PM EDT) Pathologist [facility] Zinc 55(L) 60 - 130 ug/dL 02/19/2025 11:[address] [facility] Comment: Elevated results may be due to sample collected in a non-certified trace element-free tube. This test was developed and the performance characteristics determined by [facility]. It has not been cleared or approved by the FDA. The laboratory is regulated under CLIA as qualified to perform high-complexity testing. This test is used for patient testing purposes. It should not be regarded as investigational or for research. Test performed at [facility], [address] , [place] [address] Piedad Chan MD, PhD - Construction Management Assistant Blood Venous blood specimen / Unknown Venipuncture / Unknown 02/16/2025 1:51 PM EDT 02/16/2025 1:51 PM EDT us Omer Beaver MD LAB BLOOD ORDERABLES Final R esult Performing Organization Address City/[facility]/ZIP Co de Phone Number [facility] [address] [place] [address] * Vitamin D 25 hydroxy (02/16/2025 1:51 PM EDT) Vit D, 25-Hydroxy 52.8 30.0 - 80.0 ng/mL LAB CHEMISTRY METHOD 02/16/2025 7:[address] [facility] Blood Venous blood specimen / Unknown Venipuncture / Unknown 02/16/2025 1:51 PM EDT 02/16/2025 1:51 PM EDT us Omer Beaver MD LAB BLOOD ORDERABLES Final R esult Performing Organization Address City/[facility]/ZIP Co de Phone Number [facility] [address] [place] [address], [place] [phone] * (ABNORMAL) Folate (02/16/2025 1:51 PM EDT) Folate 19.0(H) 2.8 - 17.0 ng/ml LAB CHEMISTRY METHOD 02/16/2025 7:[address] [facility] Blood Venous blood specimen / Unknown Venipuncture / Unknown 02/16/2025 1:51 PM EDT 02/16/2025 1:51 PM EDT us Omer Beaver MD LAB BLOOD ORDERABLES Final R esult Performing Organization Address [facility]/ZIP Co de Phone Number [facility] [address] [place] [address], [place] [phone] * Vitamin B12 (02/16/2025 1:51 PM EDT) Vitamin B-12 494 250 - 900 pcg/mL LAB CHEMISTRY METHOD 02/16/2025 7:[address] [facility] Blood Venous blood specimen / Unknown Venipuncture / Unknown 02/16/2025 1:51 PM EDT 02/16/2025 1:51 PM EDT us Omer Beaver MD LAB BLOOD ORDERABLES Final R esult [facility] [address] [place] [address], [place] [phone] * Calcium (02/16/2025 1:51 PM EDT) Calcium 9.6 8.5 - 10.5 mg/dL LAB CHEMISTRY METHOD 02/16/2025 7:[address] [facility] Blood Venous blood specimen / Unknown Venipuncture / Unknown 02/16/2025 1:51 PM EDT 02/16/2025 1:51 PM EDT Omer Beaver MD LAB BLOOD ORDERABLES Final R esult Performing Organization Address City/[facility]/ZIP Co de Phone Number [facility] [address] [place] [address], [place] [phone] * Albumin (02/16/2025 1:51 PM EDT) Albumin 3.6 3.2 - 5.0 g/dL LAB CHEMISTRY METHOD 02/16/2025 6:[address] [facility] Blood Venous blood specimen / Unknown Venipuncture / Unknown 02/16/2025 1:51 PM EDT 02/16/2025 1:51 PM EDT Omer Beaver MD LAB BLOOD ORDERABLES Final R esult [facility] [address] [place] [address], [place] [phone] from Last 3 Months Insurance MEDICAID - [place] Care Teams Offensive Coordinator Relationship Specialty Start Date End Date [facility] [address] [place] [phone] PCP - General 12/18/23
[2025-03-08 10:55] LABS: Nordiazepam, GCMS Urine NEGATIVE; Oxazepam, GCMS Urine NEGATIVE
[2025-03-08 10:56] LABS: Alprazolam, GCMS Urine NEGATIVE; Lorazepam GCMS Urine NEGATIVE
[2025-03-08 10:57] LABS: Alphahydroxymidazolam,GCMS Ur NEGATIVE; Alphahydroxytriazolam, GCMS Ur NEGATIVE; Temazepam, GCMS Urine NEGATIVE
[2025-03-08 10:58] LABS: Aminoclonazepam, GCMS Urine 941; Flurazepam Metabolite,GCMS Ur NEGATIVE
== END 2025-03-04 16:21 | disposition home or self-care (01) ==
LOC: HO.HHCLNP 16:20
PROVIDERS: Visit Provider Registered Nurse
DX: Z79.899 Other long term (current) drug therapy (principal)
CPT/HCPCS: 80346

== ENCOUNTER 2025-04-01 08:45 | Outpatient (AMB) | payer MEDICAID, SELFPAY ==
--- NOTE | 2025-04-01 08:47 | MHC.OFFVIS ---
Vital Signs 04/01/25 08:58 Height 5 ft 2 in Weight 190 lb BMI 34.7 BP 104/72 Intake Visit Reasons: PMB/External Blaster Helper: Blaster Helper Present (OCTAVIO Bernal ) Accompanied by: Unknown Allergies mushroom Allergy (Verified 04/01/25 08:55) Anaphylaxis Is last menstrual period known: No Post menopausal: Yes Patient : No HPI Comments Details: [place] is a new patient here today with his PUBLIC HEALTH ENGINEER, Roma. Referred from [facility] for postmenopausal bleeding. Admits to never being sexually active with vaginal penetration and has difficulty with exams. Records reveal a thickened endometrium 1.5 cm with minimal internal vascularity noted within the endometrium. Pap smear negative September 2024. [facility] Medical History Hypoglycemia Fatty liver Subclinical hyperthyroidism Seizures Vitamin D deficiency Chronic pain syndrome Spondylosis 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 myelopathy Disc degeneration, lumbar Hip osteoarthritis Sacroiliitis Illiterate Morbid obesity due to excess calories Diabetes mellitus type 2, controlled, without complications Essential hypertension Hyperlipidemia LDL goal <100 Panic attacks VELASQUEZ on CPAP History of tremor Gender dysphoria Anxiety Depression Asthma Epilepsy Hypertension Surgical History History of esophagogastroduodenoscopy (EGD) Hx of laparoscopic gastric banding Family History Father CVD (cardiovascular disease) Mother Hypertension Sister Breast cancer Social History Household Members: Children and None Household Members Other:: 2 dogs Are you a primary career guidance technician to a significant other at home: No Do you presently have visiting nurse or other home services: Yes Alcohol intake: former Patient Tobacco Use Status: Former Tobacco user Substance Use Type: Marijuana Patient : No Female Reproductive History Menstrual Age of Menarche: 12 control method: none Total pregnancies: 0 Date of last pap smear: 09/08/24 (negative pap smear, negative hpv) Date of Mammogram: 08/27/24 Review of Systems Const All systems reviewed & are unremarkable except as noted in HPI and below Physical Exam Vital Signs: Last Vital Signs BP 104/72 04/01/25 08:58 BMI result Body Mass Index 34.7 Const General: cooperative, healthy appearing and no acute distress Orientation/consciousness: patient oriented x3 GI Inspection: Yes normal to inspection Palpation (GI): Soft to palpation and Other GI palpation findings present (Nontender) Rectal Exam - Female: visual inspection normal General: Yes bladder normal to palpation External Female Exam: normal appearance of the urethra Speculum Exam - Vagina: normal appearance of the vagina, normal palpation, normal vaginal discharge and vagina atrophic Speculum Exam - Cervix: normal appearance of the cervix and normal palpation Bimanual exam- vagina & uterus: normal bimanual exam, normal palpation, uterine size normal, bladder normal to palpation, normal palpation, uterine shape normal, non-tender and other (Stenotic os) Bimanual Exam- Adnexa, other: normal adnexae Neuro General: patient oriented x3 Office Procedures Endometrial Biopsy Details: The patient is here today for an endometrial biopsy due to PMB to rule out any pathology including atypical, hyperplasia or cancer cells of the uterus. She was counseled regarding anticipatory guidance for the procedure including the risks for pain, infection, bleeding, perforation, potential injury to the tissues may include the cervix, uterus, tubes, bladder and bowels. These injuries may include further treatment and evaluation including surgery, blood transfusions, antibiotics, hospitalizations and anesthesia. Permanent injury and scarring can occur. She was consented for the procedure, and the consent forms were signed. She is agreeable to have the procedure today. All questions were answered. Endometrial Biopsy Procedure: The patient was placed in the dorsal lithotomy position and a sterile speculum inserted. Using aseptic technique for the procedure. The cervix was cleansed with Betadine x 3 swabs. A single toothed tenaculum was placed on the cervix for stabilization, the cervix was found to be fused and stenotic, a graduated dilator was utilized, not able to be passed through the fused os to allow the pipelle to be inserted. Due to the patient's discomfort the procedure was discontinued. Minimal bleeding was observed. The patient tolerate the procedure well and was in good condition when leaving the department. Endometrial Biopsy Post Procedure Care: Nothing in the vagina including: tampons, douching or intimacy until all the bleeding has subsided. There may be some post procedure bleeding for several days, this bleeding is usually light and may turn to a light brown or pink color. Mild cramps may occurs. Nothing in the vaginal including: tampons, douching, or intimacy until all the bleeding has subsided. Call the office if any: fever (over 100.4), flu like symptoms, abdominal pain (worse than cramping), foul smelling, infected appearing vaginal discharge, or heavy bleeding. If indicated: Use condoms to prevent and STI's, and only after the bleeding has stopped completely. A referral will be placed to a female tamping machine operator provider who can perform the procedure with the anesthesia pending acceptance of her insurance. The patient expressed understanding and agreement with the plan of care. All of her questions and concerns were addressed to the best of my ability. This note is constructed using voice recognition software. While every effort has been made to ensure accuracy, public health engineer errors may have been included. [id number] Biopsy Assessment & Plan Assessment & Plan (1) PMB (postmenopausal bleeding): Code(s): N95.0 - Postmenopausal bleeding Category: Medical (2) Stenotic cervical os: Code(s): N88.2 - Stricture and stenosis of cervix uteri Category: Medical Plan Endometrial biopsy procedure was not completed due to patient intolerance of procedure. Plan referral to female tamping machine operator provider to consider procedure under anesthesia. The patient expressed understanding and agreement with the plan of care. All of her questions and concerns were addressed to the best of my ability. This note is constructed using voice recognition software. While every effort has been made to ensure accuracy, public health engineer errors may have been included. Orders: Referrals PRODUCT MANAGENT INTERN Referral N88.2 - Stricture and stenosis of cervix uteri, N95.0 - Postmenopausal bleeding Coding Level of Care Code Procedure Only Diagnoses PMB (postmenopausal bleeding) N95.0 Stenotic cervical os N88.2 CPT Codes Endometrial Biopsy - CPT: 29958-[id number] Biopsy ([id number])
--- OUTSIDE RECORDS SUMMARY | 2025-04-01 08:56 | XMS_ITS | Clinical Summary ---
Author Organization [facility] Address [address] [place] [phone] Phone Care Team Providers Care Warp Worker Name Role Phone Guille Valentine NP Primary Care Provider Social History Tobacco Use Types Packs/Day Years Used Date Smoking Tobacco: Never Assessed Comments Unknown Sex and Gender Information Value Date Recorded Sex Assigned at Not on file Legal Sex Female 11:43 AM EDT Gender Identity Not on file Sexual Orientation Not on file Plan of Treatment Not on file Medical Devices Not on file Insurance [facility] C3 ACO [facility] C3 ACO C3 ACO C3 ACO C3 [employer]CO [employer]3 ACO C3 ACO C3 ACO [facility] C3 ACO Care Teams Warp Worker Relationship Specialty Start Date End Date Guille Valentine NP [address] [place] [address] [phone] PCP - General Family Medicine 07/03/19 Additional Source Comments The information contained in this document represents components of the legal health record. It is not the complete legal health record.[facility]
--- OUTSIDE RECORDS SUMMARY | 2025-04-01 08:56 | XMS_ITS | Encounter Summary ---
Author Organization [employer] Address [address] [facility] [address] [place] [address] Care Team Providers Care Digital Solution Architect Name Role Phone [facility] Primary Care Provider [phone] Reason for Visit * Reason Onset Date Comments Med Refill 03/29/2025 Encounter Details Date Type Department Care Team (Late st Contact Info) Description 03/29/2025 Refill [facility] [address] [place], [place] [phone] [facility] [address] [facility] [place] [address] Rash and nonspecific skin eruption Social History Tobacco Use Types Packs/Day Years [...] encounter Miscellaneous Notes * Telephone Encounter - Sarah Biswas LPN - 03/29/2025 1:56 PM EDT Last seen 03.22.25 documented in this encounter Plan of Treatment Upcoming Encounters Date Type Department Care Team (Late st Contact Info) Description 06/07/2025 1:00 PM EDT Clinical Support [facility] [address] [place] [address] Frida Knapp RN documented as of this encounter Visit Diagnoses Diagnosis Rash and nonspecific skin eruption Rash and other nonspecific skin eruption documented in this encounter Additional Health Concerns Assessment Noted Time PHQ-9 Depression Total Score: 13 024 11:27 AM EDT documented as of this encounter Care Teams Digital Solution Architect Relationship Specialty Start Date End Date Ginger Perez FNP [address] [place] [address] PCP - General Family Medicine 08/13/22 [facility] 11/01/22 documented as of this encounter
--- OUTSIDE RECORDS SUMMARY | 2025-04-01 08:56 | XMS_ITS | Clinical Summary ---
Author Organization [address] [facility] Address [address] [place] [address] Phone Care Team Providers Care Sales Merchandise Associate Name Role Phone [facility] Primary Care Provider [phone] Allergies Active Allergy Reactions Criticality Noted Date [...] HOURS NEEDED FOR GAS 120 each 1 5 Active acetaminophen (TYLENOL) 500 mg tablet TAKE 2 TABLETS BY MOUTH EVERY 8 HOURS 180 tablet 1 5 Active nutritional drink (Ensure High Protein) liquidIndications: Postsurgical malabsorption, not elsewhere classified Take 333 mL by mouth 2 (two) times a day. 94021 mL 5 05/12/20 25 Active zinc gluconate 50 mg tabletIndications: Postoperative malabsorption Take 1 tablet (50 mg total) by mouth 1 (one) time each day. 30 tablet 5 02/23/20 26 Active pantoprazole (PROTONIX) 40 mg EC tabletIndications: Bariatric surgery status TAKE 1 TABLET BY MOUTH EVERY DAY 30 tablet 5 5 Active Active Problems Problem Noted Date Diagnosed Date Anxiety 02/16/2025 Depression 02/16/2025 Severe obesity (CMS/HCC V24, CMS/HCC V28) 2024 Complex sleep apnea syndrome 02/16/2025 [...] Overview (02/16/2025): Compliant with BiPAP Followed by [facility] sleep [facility]. Dr. 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 EEG's normal. Per neurology notes, possible dyskenisa s/t hx of antipsychotic medications which patient is no longer taking. Not currently taking any anti- seizure medications. No seizure episodes >2 months. Episodes triggered by emotional stress. Chronic post-traumatic stress disorder 0 Diabetes mellitus ([facility] V24, [facility] V28) Headache 05/25/2020 Essential hypertension 05/25/2020 Mixed hyperlipidemia 05/25/2020 Seizures ([facility] V24, [facility] V28) 05/25/2020 Coarse tremors 11/12/2019 [...] PM EDT Office Visit Bariatric Surgery - [address] [place] [address] Omer Beaver MD Postgastrectomy malabsorption (Primary Dx); Gastrointestinal hemorrhage, unspecified gastrointestinal hemorrhage type from Last 3 Months Surgical History Surgery Date Site/Laterality Comments LAPAROSCOPIC GASTRIC BANDING 2011 and 01/15/2014 PROCEDURE: LAP ADJUSTABLE GASTRIC BAND; COMMENT: first band slipped, was replaced Medical History Medical History Date Comments Anxiety DX:Anxiety Asthma DX:Asthma Depression DX:Depression Diabetes mellitus type 2, uncomplicated ([facility] V24, [facility] V28) DX:Diabetes mellitus type 2, uncomplicated ([facility]) Hypertension DX:Hypertension LAP-BAND surgery status 12/02/2018 DX:LAP-B AND surgery status; COMMENT: x2 Morbid obesity with BMI of 5 0.0-59.9, adult ([facility] V24, [facility] V28) 12/02/2018 DX:Morbid obesity wit h BMI of 50.0-59.9, adult ([facility]) VELASQUEZ (obstructive sleep apnea) DX :VELASQUEZ (obstructive sleep apnea) Seizures ([facility] V24, [facility] V28) DX:Seizures (HCC) Covid-19 DX:COVID-19; COM MENT: [...] 1:50 PM EDT Consult Gastroenterology - [address] [facility] [address] [phone] Martina Santizo PA [address] [address] 07/06/2025 1:30 PM EST Office Visit Bariatric Surgery - [place] [facility] [address] [place] [phone] Omer Beaver MD [address] [address] Health Maintenance Due Date Last Done Comments [...] COVID-19 Vaccine ( season) 2024 Depression Screening 09/02/2024 Influenza Vaccine (#1) 2025 , 06/21/2022, 07/06/2019, [...] LAB CHEMISTRY METHOD 02/16/2025 7:17 PM EDT [facility] TIBC 299 250 - 450 mcg/dL LAB CHEMISTRY METHOD 02/16/2025 7:17 PM EDT [facility] Iron Saturation 30 15 - 50 % LAB CHEMISTRY METHOD 02/16/2025 7:17 PM EDT [facility] Blood Venous blood specimen / Unknown Venipuncture / Unknown 02/16/2025 1:51 PM EDT 02/16/2025 1:51 PM EDT Omer Beaver MD LAB BLOOD ORDERABLES Final R esult Performing Organization Address City/[facility]/ZIP Co de Phone Number [facility] [address] [place] [address], * (ABNORMAL) Zinc (02/16/2025 1:51 PM EDT) [facility] Zinc 55(L) 60 - 130 ug/dL 02/19/2025 11:31 AM EDT [facility] Comment: Elevated results may be due to sample collected in a non-certified trace element-free tube. This test was developed and the performance characteristics determined by [facility]. It has not been cleared or approved by the FDA. The laboratory is regulated under CLIA as qualified to perform high-complexity testing. This test is used for patient testing purposes. It should not be regarded as investigational or for research. Test performed at [facility], [address], [place] [address] Piedad Chan MD, PhD - Clinical Nutritionist Blood Venous blood specimen / Unknown Venipuncture / Unknown 02/16/2025 1:51 PM EDT 02/16/2025 1:51 PM EDT Omer Beaver MD LAB BLOOD ORDERABLES Final R esult [facility] [address] [place] [address] * Vitamin D 25 hydroxy (02/16/2025 1:51 PM EDT) [facility] Vit D, 25-Hydroxy 52.8 30.0 - 80.0 ng/mL LAB CHEMISTRY METHOD 02/16/2025 7:25 PM EDT [facility] Blood Venous blood specimen / Unknown Venipuncture / Unknown 02/16/2025 1:51 PM EDT 02/16/2025 1:51 PM EDT us Omer Beaver MD LAB BLOOD ORDERABLES Final R esult Performing Organization Address City/[facility]/ZIP Co de Phone Number [facility] [address] [place] [address], [place] [phone] * (ABNORMAL) Folate (02/16/2025 1:51 PM EDT) [facility] Folate 19.0(H) 2.8 - 17.0 ng/ml LAB CHEMISTRY METHOD 02/16/2025 7:17 PM EDT [facility] Blood Venous blood specimen / Unknown Venipuncture / Unknown 02/16/2025 1:51 PM EDT 02/16/2025 1:51 PM EDT us Omer Beaver MD LAB BLOOD ORDERABLES Final R esult Performing Organization Address City/[facility]/ZIP Co de Phone Number [facility] [address] [place] [address], [place] [phone] * Vitamin B12 (02/16/2025 1:51 PM EDT) [facility] Vitamin B-12 494 250 - 900 pcg/mL LAB CHEMISTRY METHOD 02/16/2025 7:17 PM EDT [facility] Blood Venous blood specimen / Unknown Venipuncture / Unknown 02/16/2025 1:51 PM EDT 02/16/2025 1:51 PM EDT us Omer Beaver MD LAB BLOOD ORDERABLES Final R esult [facility] [address] [place] [address], [place] [phone] * Calcium (02/16/2025 1:51 PM EDT) [facility] Calcium 9.6 8.5 - 10.5 mg/dL LAB CHEMISTRY METHOD 02/16/2025 7:17 PM EDT [facility] Blood Venous blood specimen / Unknown Venipuncture / Unknown 02/16/2025 1:51 PM EDT 02/16/2025 1:51 PM EDT Omer Beaver MD LAB BLOOD ORDERABLES Final R esult [facility] [address] [place] [address], [place] [phone] * Albumin (02/16/2025 1:51 PM EDT) [facility] Albumin 3.6 3.2 - 5.0 g/dL LAB CHEMISTRY METHOD 02/16/2025 6:43 PM EDT [facility] Blood Venous blood specimen / Unknown Venipuncture / Unknown 02/16/2025 1:51 PM EDT 02/16/2025 1:51 PM EDT Omer Beaver MD LAB BLOOD ORDERABLES Final R esult Performing Organization Address City/[facility]/ZIP Co de Phone Number [facility] [address] [place] [address], [place] [phone] from Last 3 Months Insurance MEDICAID - [place] Care Teams Sales Merchandise Associate Relationship Specialty Start Date End Date Gunn[place] Ginger [address] [place] [phone] PCP - General 12/18/23
[2025-04-01 08:58] VITALS: BP 104/72; BMI 34.7
== END 2025-04-01 11:33 | disposition home or self-care (01) ==
LOC: HO.HWS 08:45
PROVIDERS: PCP Registered Nurse; Visit Provider Advanced Practice Midwife
DX: N95.0 Postmenopausal bleeding (principal); N88.2 Stricture and stenosis of cervix uteri
CPT/HCPCS: 58100

== ENCOUNTER → 2025-04-01 08:45 | Outpatient (BNVA) | payer MEDICAID, SELFPAY | PROVIDERS: PCP Registered Nurse; Visit Provider Advanced Practice Midwife | DX: N95.0 Postmenopausal bleeding (principal); N88.2 Stricture and stenosis of cervix uteri | CPT/HCPCS: 58100 ==

== ENCOUNTER 2025-05-10 13:26 | Outpatient (AMB) | payer MEDICAID, SELFPAY ==
--- OUTSIDE RECORDS SUMMARY | 2025-05-06 23:59 | XMS_ITS | Continuity of Care Document ---
Author Organization [facility] Address [address] [place] [address], [address] [address]- Care Team Providers Care Professor Of Engineering Name Role Phone Bora SIBLEY, Oz Primary Care Physician [id number] Date(s): 04/06/25 - 05/06/25 [facility] [address] [place], [place] [address] Encounter Type: Triage Allergies, Adverse Reactions, Alerts No Known Allergies Medications abilify abilify, Refills 0, Maintenance, 08/19/19 1:20:00 PM EST, Compound Start Date: 08/19/19 Status: Ordered Medication Dispense Status: Completed Total Allowed Fills: 1 Fills Dispensed: 0 Advair Diskus 250 mcg-50 mcg inhalation powder 1, inhalation, Inhalation, 2 times a day, rinse mouth and throat after use, Maintenance, Powder Start Date: 12/15/21 Status: Ordered Medication Dispense Status: Completed Total Allowed Fills: 1 Fills Dispensed: 0 atorvastatin 20 mg oral tablet 1 tablet = 20 mg, By Mouth, Daily, Maintenance Start Date: 12/15/21 Status: Ordered Medication Dispense Status: Completed Total Allowed Fills: 1 Fills Dispensed: 0 Clonazepam = 1 mg, By Mouth, 3 times a day, 1 tab BID, may take additional tab qHS for sleep, 0 Refills, Maintenance, 08/19/19 1:20:00 PM EST Start Date: 08/19/19 Status: Ordered Medication Dispense Status: Completed Total Allowed Fills: 1 Fills Dispensed: 0 CPAP Equipment See Instructions, # 1 each, Maintenance, 3. : 1965 4. Medicaid ID# [id number] 5. Nasal mask, headgear,cushions,tubing,filters,chin strap,humidifier chamber, heated tubing. 6. 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 Length of time needed-One Year 8. Date of Service-03/11/2017 9. Please Include M, 03/11/17 6:57:52 AM EDT, Compound Start Date: 03/11/17 Status: Ordered Medication Dispense Status: Completed Quantity: 1.0 Unit: each Total Allowed Fills: 1 Fills Dispensed: 0 cyclobenzaprine 5 mg oral tablet 1 tablet = 5 mg, By Mouth, 3 times a day, PRN Spasm, Maintenance Start Date: 12/15/21 Status: Ordered Medication Dispense Status: Completed Total Allowed Fills: 1 Fills Dispensed: 0 Dulcolax Tablet 10 mg, By Mouth, Daily, Maintenance, 06/19/11 1:18:14 PM EDT Start Date: 06/19/11 Status: Ordered Medication Dispense Status: Completed Total Allowed Fills: 1 Fills Dispensed: 0 gabapentin 300 mg oral capsule 300 mg, 1, capsule, By Mouth, 3 times a day, Maintenance Start Date: 12/15/21 Status: Ordered Medication Dispense Status: Completed Total Allowed Fills: 1 Fills Dispensed: 0 hydrochlorothiazide-lisinopril 25 mg-20 mg oral tablet 1 tablet, By Mouth, Daily, Maintenance Start Date: 12/15/21 Status: Ordered Medication Dispense Status: Completed Total Allowed Fills: 1 Fills Dispensed: 0 insulin in am insulin in am, Refills 0, Maintenance, 08/19/19 1:19:00 PM EST, Compound Start Date: 08/19/19 Status: Ordered Medication Dispense Status: Completed Total Allowed Fills: 1 Fills Dispensed: 0 Jardiance 10 mg oral tablet 1 tablet = 10 mg, By Mouth, Daily in AM, Maintenance, Tablet Start Date: 12/15/21 Status: Ordered Medication Dispense Status: Completed Total Allowed Fills: 1 Fills Dispensed: 0 Metformin = 1,000 mg, By Mouth, 2 times a day, 0 Refills, Maintenance, 02/21/18 2:23:18 PM EDT Start Date: 02/21/18 Status: Ordered Medication Dispense Status: Completed Total Allowed Fills: 1 Fills Dispensed: 0 pravastatin 20 mg oral tablet 1, tablet, By Mouth, Daily, # 30 tablet, Soft Stop Start Date: 12/02/08 Stop Date: 01/01/09 Status: Ordered Medication Dispense Status: Completed Quantity: 30.0 Unit: tablet Total Allowed Fills: 1 Fills Dispensed: 0 prazosin 5 mg oral capsule 5 mg, 1, capsule, By Mouth, Daily at bedtime, Maintenance Start Date: 12/15/21 Status: Ordered Medication Dispense Status: Completed Total Allowed Fills: 1 Fills Dispensed: 0 ProAir HFA 90 mcg/inh inhalation aerosol with adapter 2, puffs, Inhalation, 4 times a day, Soft Stop Start Date: 12/02/08 Stop Date: 01/01/09 Status: Ordered Medication Dispense Status: Completed Total Allowed Fills: 1 Fills Dispensed: 0 propranolol 40 mg oral tablet 40 mg, 1, tablet, By Mouth, 2 times a day, Maintenance Start Date: 12/15/21 Status: Ordered Medication Dispense Status: Completed Total Allowed Fills: 1 Fills Dispensed: 0 Proventil 0.083% inhalation solution 3 mL = 2.5 mg, Inhalation, Every 4 hours, 0 Refills, Maintenance, 06/19/11 1:17:10 PM EDT Start Date: 06/19/11 Status: Ordered Medication Dispense Status: Completed Total Allowed Fills: 1 Fills Dispensed: 0 trazodone 100 mg oral tablet 1 tablet = 100 mg, By Mouth, Daily at bedtime, 0 Refills, Maintenance, 10/28/13 2:25:39 PM EST Start Date: 10/28/13 Status: Ordered Medication Dispense Status: Completed Total Allowed Fills: 1 Fills Dispensed: 0 Tresiba 100 units/mL subcutaneous solution Subcutaneous Infusion, Daily, 0 Refills, Maintenance, 12/15/21 4:18:00 PM EDT, Partial fill upon patient request if the prescription is for a schedule II opioid drug. Start Date: 12/15/21 Status: Ordered Medication Dispense Status: Completed Total Allowed Fills: 1 Fills Dispensed: 0 Trulicity Pen 3 mg/0.5 mL subcutaneous solution 0.5 mL = 3 mg, Subcutaneous Injection, Every week, rotate injection sites, Maintenance, Solution Start Date: 12/15/21 Status: Ordered Medication Dispense Status: Completed Total Allowed Fills: 1 Fills Dispensed: 0 Tums 500 Chew, 2 times a day, 0 Refills, Maintenance, 06/19/11 1:18:37 PM EDT Start Date: 06/19/11 Status: Ordered Medication Dispense Status: Completed Total Allowed Fills: 1 Fills Dispensed: 0 Vitamin D3 2000 intl units oral capsule 1 capsule = 50 mcg, By Mouth, Daily, Maintenance Start Date: 12/15/21 Status: Ordered Medication Dispense Status: Completed Total Allowed Fills: 1 Fills Dispensed: 0 zolpidem 10 mg oral tablet 0.5 tablet = 5 mg, By Mouth, Daily at bedtime, 0 Refills, Maintenance, 06/19/11 1:20:30 PM EDT Start Date: 06/19/11 Status: Ordered Medication Dispense Status: Completed Total Allowed Fills: 1 Fills Dispensed: 0 Problem List Condition Confirmation Course Effective Dates [...] comorbidity Confirmed Active Tremor Confirmed 05/25/20 Active Social History Social History Type Response Smoking Status Former smoker, quit more than 30 days ago entered on: 01/06/24 Sex Sex Representation Female (finding) Patient Care team information Care Team Personnel Name: Amelia Dotson NP Position: [facility] PCO Associate Professional Member Role: Primary Care Nurse Name: Oz Sahni MD Position: [facility] Outreach Member Role: PCP Address: [address] [place] [id number] Telecom: Name: Dary Esteves Position: [facility] Outreach Member Role: Primary Care Nurse Care Team Related Persons Name: RENY DENIS Name: CAROLYN NGUYEN Insurance Providers Guarantor name: FELIPA PINEDA [facility] Plan Information #: 1 Payer: [employer] Payer Identifier: NA Member Number: [id number] Group Number: NA Subscriber Identifier: NA Relationship to Subscriber: self Coverage Type: MEDICAID Coverage Verification Date: NA Telecom: NA Address: NA
[2025-05-10 13:48] VITALS: BMI 32.9
--- NOTE | 2025-05-10 13:48 | MHC.OFFVIS ---
Vital Signs 05/10/25 13:48 Height 5 ft 2 in Weight 180 lb BMI 32.9 Intake Visit Reasons: New Pt- Toe nail disorder Intake Note: [place] is a 59 year old male who presents today as a new patient for an evaluation for left great toe nail disorder. Patient mentions a case of the ensure fell on his foot . Since the injury his foot has been causing him a lot of pain. He also mentions that his toes have been turning black. Patient states he managed the nail disorder by self-draining blood from under the nail. He was advised by Recovery Assistant office to avoid self-treatment to prevent infection. Patient reports he has tried Epson salts and found that his toes is looking better but is still having pain. Allergies mushroom Allergy (Verified 05/10/25 13:50) Anaphylaxis HPI Comments Details: This is a 59-year-old male with a past medical history as seen below who presents to the office for left hallux pain. Patient states he was moving furniture and dropped box on his toe leading to pain and bruising to the left hallux. He states that he noticed a subungual hematoma to the left hallucal nail and drained it on his own. He states he still experiences pain to the left hallux in totality. Denies any purulence from the site. Patient also has concerns of a ingrown toenail noted to the lateral aspect of the left hallux. Patient states he has been having pain for the past 3 months to the left hallux. Patient states the pain radiates from the toe all the way up to the knee. Denies any other pedal concerns. Denies any nausea vomiting fever or chills. [facility] Medical History (Updated 05/10/25 @ 14:57 by Nichelle Catalan DPM) Injury of left great toe Pain of left great toe Stenotic cervical os Post-menopausal bleeding Hypoglycemia Fatty liver Subclinical hyperthyroidism Seizures Vitamin D deficiency Chronic pain syndrome Spondylosis 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 myelopathy Disc degeneration, lumbar Hip osteoarthritis Sacroiliitis Illiterate Morbid obesity due to excess calories Diabetes mellitus type 2, controlled, without complications Essential hypertension Hyperlipidemia LDL goal <100 Panic attacks VELASQUEZ on CPAP History of tremor Gender dysphoria Anxiety Depression Asthma Epilepsy Hypertension Surgical History History of esophagogastroduodenoscopy (EGD) Hx of laparoscopic gastric banding Family History Father CVD (cardiovascular disease) Mother Hypertension Sister Breast cancer Social History Household Members: Children and None Household Members Other:: 2 dogs Are you a primary senior caregiver to a significant other at home: No Do you presently have visiting nurse or other home services: Yes Alcohol intake: former Patient Tobacco Use Status: Former Tobacco user Substance Use Type: Marijuana Female Reproductive History Menstrual Age of Menarche: 12 Review of Systems Const All systems reviewed & are unremarkable except as noted in HPI and below Physical Exam Vital Signs: BMI result Body Mass Index 32.9 Extrem Other: Left lower extremity focused physical exam: Derm: Mild edema and mild erythema noted to the lateral aspect of the left hallux. Incurvation noted to the lateral border of the left hallucal nail with ingrowing noted to the left hallux. No active bleeding or purulence noted. No ecchymosis noted. No open wounds or abrasions. No clinical signs of infection. Vascular: DP/PT pulses palpable. Capillary refill time less than 3 seconds. No varicosities noted. Pedal hair present. Neuro: Protective sensation is grossly intact. Musculoskeletal: Pain on palpation to the left hallux along the lateral nail border, as well as the entirety of the left hallux down to the 1st MPJ. Pain with range of motion of the left hallux at the level of the IPJ and MPJ. Range of motion of remaining toes within normal limits. Patient seen ambulating with a cane. Range of motion of the hindfoot within normal limits. Ankle/foot/toe images:  1. Office Procedures AMB Debridement/Avulsion Podia Details: Procedure: Left hallux partial nail avulsion of the lateral border Cleanse the left hallux with an alcohol swab and injected 10 cc of 1% lidocaine plain in a hallux block fashion to the left hallux. Next applied a tourniquet to the left hallux. Next cleansed the left hallux with Betadine. Attention was drawn to the lateral border of the left hallux where ingrowing nail was noted. Using a Murphy, the offending nail border was freed from the lateral nail fold of the left hallux. Next an German anvil was utilized to cut the offending nail border and a hemostat was used to remove the offending nail border from the site. No remaining spicules were noted to the site. At this time the tourniquet was removed and triple antibiotic ointment a Band-Aid and Coban were applied to the left hallux. Procedure was performed well with no incidents. 14058 Partial/Total nail avulsion (1 nail) Procedure code (CPT) selection complete Office Meds lidocaine HCl 10 mg/mL (1 %) injection solution Performing Provider: Nichelle Catalan DPM Performing Location: [facility] Administered by: Nichelle Catalan DPM on 05/10/25 14:33 Dose Route Admin Location Dispensed Lot Number Expiration Date FORMERLY NAMED [facility] Security Door Installer 10 mL subcut 10 mL [id number] HOSPIRA/PFIZER Total Dispensed Waste 10 mL 0 % Triple Antibiotic 3.5 mg-400 unit-5,000 unit topical ointment packet Performing Provider: Nichelle Catalan DPM Performing Location: [facility] Administered by: Nichelle Catalan DPM on 05/10/25 14:33 Dose Route Admin Location Dispensed Lot Number Expiration Date FORMERLY NAMED [facility] Security Door Installer 1 appl topical 1 appl [id number] PADAGIS povidone-iodine 10 % topical swab Performing Provider: Nichelle Catalan DPM Performing Location: [facility] Administered by: Nichelle Catalan DPM on 05/10/25 14:33 Dose Route Admin Location Dispensed Lot Number Expiration Date FORMERLY NAMED [facility] Security Door Installer 1 appl topical 1 appl [id number] [employer] [place]. ethyl chloride 100 % topical spray Performing Provider: Nichelle Catalan DPM Performing Location: [facility] Administered by: Nichelle Catalan DPM on 05/10/25 14:33 Dose Route Admin Location Dispensed Lot Number Expiration Date FORMERLY NAMED [facility] Security Door Installer 3 appl topical 116 mL [id number] [employer]. Results Reviewed Results Reviewed: Ordered left foot weightbearing three-view x-rays to be performed prior to next visit. Assessment & Plan Assessment & Plan (1) Injury of left great toe: Code(s): S99.922A - Unspecified injury of left foot, initial encounter Category: Medical Qualifiers: Encounter type: initial encounter Qualified Code(s): S99.922A - Unspecified injury of left foot, initial encounter (2) Pain of left great toe: Code(s): M79.675 - Pain in left toe(s) Category: Medical (3) Ingrown nail of great toe of left foot: Code(s): L60.0 - Ingrowing nail (4) Cellulitis of great toe of left foot: Code(s): L03.032 - Cellulitis of left toe (5) Nail dystrophy: Code(s): L60.3 - Nail dystrophy Plan Discussed with patient diagnoses of injury to the left hallux as well as left hallux ingrown toenail. At this time recommending a partial nail avulsion of the left hallux lateral border. Partial nail avulsion was performed with no incidents. Provided patient with aftercare instructions for partial nail avulsion: Patient is to leave the bandage on for 24 hours. After 24 hours patient may remove the bandage and soak the foot in Epsom salt and warm water, once dry applied triple antibiotic ointment and a Band-Aid to the site. Due to left hallux injury, patient is to be weight-bearing as tolerated in a surgical shoe. Ordered left foot three-view weight-bearing x-rays to be performed prior to the next visit. Patient is to continue taking Tylenol as needed for pain. Patient is to return to the clinic in 2 weeks for re-evaluation. Further treatment pending x-ray results. Orders: Orders XR foot LT min 3V Today M79.675 - Pain in left toe(s), S99.922A - Unspecified injury of left foot, initial encounter AMB Debridement/Avulsion Podiatry Today L03.032 - Cellulitis of left toe, L60.0 - Ingrowing nail, L60.3 - Nail dystrophy, M79.675 - Pain in left toe(s) Coding Level of Care Code New Pt Level 4 (44129) Diagnoses Injury of left great toe, initial encounter S99.922A Encounter type: initial encounter Pain of left great toe M79.675 Ingrown nail of great toe of left foot L60.0 Cellulitis of great toe of left foot L03.032 Nail dystrophy L60.3 CPT Codes Skin Debridement - CPT: 40754 Partial/Total nail avulsion (1 nail) ([id number]) Time Spent (min) 48
--- OUTSIDE RECORDS SUMMARY | 2025-05-10 15:43 | XMS_ITS | Encounter Summary ---
Author Organization [employer] Address [address] [facility] [address] [place] [address] Care Team Providers Care Dramatic Arts Historian Name Role Phone [facility] Primary Care Provider [phone] Reason for Visit * Reason Onset Date Comments Medication Question 11/12/2024 Med Refill 11/12/2024 Encounter Details Date Type Department Care Team ([facility] st Contact Info) Description 11/12/2024 Telephone [facility] [address] [place] [address] [facility] [address] [place] [address] Medication Question; Med Refill Social History Tobacco [...] from pt regarding Lidocaid Patch and Clonazepam. Sewer Repairer advised pt med refill request was sent yesterday. documented in this encounter Plan of Treatment Upcoming Encounters Date Type Department Care Team (Late st Contact Info) Description 05/18/2025 1:30 PM EDT Medication Management [facility] [address] [place] [address] Isaiah Contreras, PharmD [address] [place] [address] 06/07/2025 1:00 PM EDT Clinical Support [facility] [address] [place] [address] Frida Knapp RN documented as of this encounter Visit Diagnoses Not on filedocumented in this encounter Additional Health Concerns Assessment Noted Time PHQ-9 Depression Total Score: 13 024 11:27 AM EDT documented as of this encounter Care Teams Dramatic Arts Historian Relationship Specialty Start Date End Date [place] GERALD Miles [address] [place] [address] PCP - General Family Medicine 08/13/22 [facility] [place] [place]22 documented as of this encounter
--- OUTSIDE RECORDS SUMMARY | 2025-05-10 15:43 | XMS_ITS | Clinical Summary ---
Author Organization [facility] Address [address] [place] [address] Phone Care Team Providers Care Clinical Appeals Reviewer Name Role Phone Guille Valentine NP Primary Care Provider [phone] Social History Tobacco Use Types Packs/Day Years Used Date Smoking Tobacco: Never Assessed Comments Unknown Sex and Gender Information Value Date Recorded Sex Assigned at Not on file Legal Sex Female 11:43 AM EDT Gender Identity Not on file Sexual Orientation Not on file Plan of Treatment Not on file Medical Devices Not on file Insurance [facility] C3 ACO [facility] ACO C3 ACO C3 ACO C3 ACO C3 ACO C3 ACO C3 ACO [facility] C3 ACO Care Teams Clinical Appeals Reviewer Relationship Specialty Start Date End Date Guille Valentine NP [address] [place] [address] [phone] PCP - General Family Medicine 07/03/19 Additional Source Comments The information contained in this document represents components of the legal health record. It is not the complete legal health record.[facility]
--- OUTSIDE RECORDS SUMMARY | 2025-05-10 15:43 | XMS_ITS | Encounter Summary ---
Author Organization [facility] Address [address] [facility] [address] [place] [address] Phone Care Team Providers Care Associate Professor Of Church Music Name Role Phone Guille Valentine NP Primary Care Provider Reason for Referral * Consultation (Elective) - Closed Specialty Diagnoses / Procedures Referred By Contjaden t Referred To Contact Neurology Diagnoses Tremor System, Provider Not In, [facility] [address] [address] Phone: tel: Referral ID Status Reason Start Date Expiration Date Visits Re quested Visits Authorized [id number] Closed 08/11/2020 08/11/2021 1 1 Encounter Details Date Type Department Care Team (Late st Contact Info) Description 08/11/2020 Transcribe Orders [facility] Department of Neurology [address] [place] [address], [address] Floor, [address] [place] [address] System, Provider [place] In, [place] [address] Tremor (Primary Dx) Social History Tobacco Use Types Packs/Day Years Used Date Smoking Tobacco: Never Assessed Comments Unknown Sex and Gender Information Value Date Recorded Sex Assigned at Not on file Legal Sex Female 11:43 AM EDT Gender Identity Not on file Sexual Orientation Not on file documented as of this encounter Plan of Treatment Scheduled Referrals Name Type Priority Associated Diagnoses Order Schedule Ambulatory referral to [facility] Neurology Outpatient Referral Routine Tremor Ordered: 08/11/2020 documented as of this encounter Visit Diagnoses Diagnosis Tremor- Primary Abnormal involuntary movements documented in this encounter Care Teams Associate Professor Of Church Music Relationship Specialty Start Date End Date Guille Valentine NP [address] [place] [address] PCP - General Family Medicine 07/03/19 documented as of this encounter Additional Source Comments The information contained in this document represents components of the legal health record. It is not the complete legal health record.[facility]
--- OUTSIDE RECORDS SUMMARY | 2025-05-10 15:43 | XMS_ITS | Encounter Summary ---
Author Organization [employer] Address [address] [facility] [address] [place] [address] Care Team Providers Care Plant Associate Name Role Phone Ginger Perez [facility] Primary Care Provider [phone] Encounter Details Date Type Department Care Team ([facility] st Contact Info) Description 02/21/2023 Telephone [facility] MED[facility]INE [address] [place], [place] [phone] [facility] 230 [place], [place] [phone] Social History Tobacco Use Types Packs/Day Years [...] - 02/25/2023 9:57 AM EDT T/C to [phone] for below message, No answer. LVM to call back on [phone]. As per last message , PCP referred pt. For Physical therapy evaluation. * Telephone Encounter - Mirta Vladimir - 02/21/2023 3:11 PM EDT Tc from [facility] requesting a script for Albuterol for nebulize machine. Manufactured Buildings Supervisor check on med list but nothing. Also [facility] requesting a referral for Occupational Therapy and Physical Therapy in home. To contact [facility] at [phone] Perez documented in this encounter Plan of Treatment Upcoming Encounters Date Type Department Care Team (Late st Contact Info) Description 05/18/2025 1:30 PM EDT Medication Management [address] [address] Isaiah Contreras, PharmD [address] [place] [address] 06/07/2025 1:00 PM EDT Clinical Support [address] [address] Frida Knapp, RN documented as of this encounter Visit Diagnoses Not on filedocumented in this encounter Additional Health Concerns Assessment Noted Time PHQ-9 Depression Total Score: 9 01/25/20 23 1:11 PM EDT documented as of this encounter Care Teams Plant Associate Relationship Specialty Start Date End Date Ginger Perez FNP [address] [place] [address] PCP - General Family Medicine 08/13/22 [facility] [place] 11/01/22 documented as of this encounter
--- OUTSIDE RECORDS SUMMARY | 2025-05-10 15:43 | XMS_ITS | Encounter Summary ---
Demographics Address [address] [facility] [address] [place] [address] Mobile Phone Work Phone Home Phone Email Address Preferred Language en Marital Status Single Sabianism Affiliation Unknown Race Other Race Ethnic Group Unknown Author Organization [employer] Address [address] [facility] 7[address] [place] [address] Care Team Providers Care Bean Picker Name Role Phone Ana [facility] Primary Care Provider [phone] Encounter Details Date Type Department Care Team (Late st Contact Info) Description 12/22/2024 Orders Only [facility] [address] [place], [place] [phone] ProviderDalton MD Social History Tobacco Use Types Packs/Day Years [...] as of this encounter Miscellaneous Notes * Result Encounter Note - Katey Ott CNM - 12/22/2024 11:20 AM EDT Pelvic ultrasound showed the lining of the uterus is thicker than expected. Please let Hilda know I am going to refer to INSPECTOR RECEIVING for further evaluation. Thanks! documented in this encounter Plan of Treatment Upcoming Encounters Date Type Department Care Team (Late st Contact Info) Description 05/18/2025 1:30 PM EDT Medication Management [address] [address] Isaiah Contreras, PharmD 230 [place] [address] 06/07/2025 1:00 PM EDT Clinical Support [address] [address] Frida Knapp, OZZY documented as of this encounter Procedures Procedure Name Priority Date/Time Associated Diagnosis Comments US PELVIS TRANSVAGINAL Routine 09/28/2024 11:20 AM EST documented in this encounter Results * US Pelvis Transvaginal (09/28/2024 11:20 AM EST) Anatomical Region Laterality Modality Pelvis Ultrasound us Historical Provider MD CORONEL US PROCEDURES Final R esult documented in this encounter Visit Diagnoses Not on filedocumented in this encounter Additional Health Concerns Assessment Noted Time PHQ-9 Depression Total Score: 13 024 11:27 AM EDT documented as of this encounter Care Teams Bean Picker Relationship Specialty Start Date End Date Ginger Perez FNP [address] [place] [address] PCP - General Family Medicine 08/13/22 [facility] Home Care 11/01/22 documented as of this encounter
--- OUTSIDE RECORDS SUMMARY | 2025-05-10 15:43 | XMS_ITS | Encounter Summary ---
Author Organization [employer] Address [address] [facility] [address] [place] [address] Care Team Providers Care Circulating Nurse Name Role Phone [facility] Primary Care Provider [phone] Reason for Visit * Reason Comments Med Refill Encounter Details Date Type Department Care Team ([facility] st Contact Info) Description 11/22/2023 Refill [facility] 230 [place], [place] [phone] [facility] 230 [place] [address] Type 2 diabetes mellitus with hyperglycemia, with long-term current use of insulin ([facility]) Social History Tobacco Use Types Packs/Day [...] Description 05/18/2025 1:30 PM EDT Medication Management [facility] [address] [place] [address] Isaiah Contreras, PharmD [address] [place] [address] 06/07/2025 1:00 PM EDT Clinical Support [facility] [address] [place] [address] Frida Knapp, RN documented as of this encounter Visit Diagnoses Diagnosis Type 2 diabetes mellitus with hyperglycemia, with long-term current use of insulin ([facility]) documented in this encounter Additional Health Concerns Assessment Noted Time PHQ-9 Depression Total Score: 0 11/13/19 24 3:08 PM EDT documented as of this encounter Care Teams Circulating Nurse Relationship Specialty Start Date End Date Ginger Perez FNP [address] [place] [address] PCP - General Family Medicine 08/13/22 [facility] 11/01/22 documented as of this encounter
--- OUTSIDE RECORDS SUMMARY | 2025-05-10 15:43 | XMS_ITS | Encounter Summary ---
Author Organization [employer] Address [address] [facility] [address] [place] [address] Care Team Providers Care Hybrid Tester Name Role Phone Ana [facility] Primary Care Provider [phone] Encounter Details Date Type Department Care Team ([facility] st Contact Info) Description 12/20/2022 Telephone [facility] [address] [place], [place] [phone] [facility] [address], [place] [phone] Social History Tobacco Use Types Packs/Day Years [...] Miscellaneous Notes * Telephone Encounter - David Jefferson - 12/20/2022 4:16 PM EDT Tc from [facility] requesting status on orders that needed to be sign by PCP on oct [facility] [phone] documented in this encounter Plan of Treatment Upcoming Encounters Date Type Department Care Team (Late st Contact Info) Description 05/18/2025 1:30 PM EDT Medication Management [address] [address] Isaiah Contreras, Ana PaulaD [address] [place] [address] 06/07/2025 1:00 PM EDT Clinical Support [facility] [address] [place] [address] Frida Knapp, RN documented as of this encounter Visit Diagnoses Not on filedocumented in this encounter Additional Health Concerns Assessment Noted Time PHQ-9 Depression Total Score: 0 12/12/19 3:58 PM EDT documented as of this encounter Care Teams Hybrid Tester Relationship Specialty Start Date End Date Ginger Perez FNP [address] [place] [address] PCP - General Family Medicine 08/13/22 [facility] Home Care 11/01/22 documented as of this encounter
--- OUTSIDE RECORDS SUMMARY | 2025-05-10 15:43 | XMS_ITS | Encounter Summary ---
Author Organization [employer] Address [address] [facility] [address] [place] [address] Care Team Providers Care Industrial Laborer Name Role Phone [facility] Primary Care Provider Reason for Visit * Reason Onset Date Comments Call Back Request 10/09/2024 Encounter Details Date Type Department Care Team ([facility] st Contact Info) Description 10/09/2024 Telephone [facility] [address] [place] [address] [facility] 230 [place] [address] Call Back Request Social History Tobacco Use [...] the past 12 months, has t he [employer], gas, oil or water [employer] threatened to shut off services in your [...] RN - 10/12/2024 9:47 AM EST Called [facility] and spoke with Akilah. Advised her per [...] refuses to perform it. Any questions contact: [phone] documented in this encounter Plan of Treatment Upcoming Encounters Date Type Department Care Team (Late st Contact Info) Description 05/18/2025 1:30 PM EDT Medication Management [address] [phone] Isaiah Contreras, PharmD [address] [place] [address] 06/07/2025 1:00 PM EDT Clinical Support [facility] 230 [place] [address] Frida Knapp, RN documented as of this encounter Visit Diagnoses Not on filedocumented in this encounter Additional Health Concerns Assessment Noted Time PHQ-9 Depression Total Score: 13 024 11:27 AM EDT documented as of this encounter Care Teams Industrial Laborer Relationship Specialty Start Date End Date [facility] ORDER MAKE UP CLERK [address] [place] [address] PCP - General Family Medicine 08/13/22 [facility] Home Care 11/01/22 documented as of this encounter
--- OUTSIDE RECORDS SUMMARY | 2025-05-10 15:43 | XMS_ITS | Encounter Summary ---
Author Organization [employer] Address [address] [facility] [address] [place] [address] Care Team Providers Care Student Services Dean Name Role Phone [place], [facility] Primary Care Provider [phone] Encounter Details Date Type Department Care Team ([facility] st Contact Info) Description 04/19/2025 Telephone [facility] MEDICINE [address] [place], [place] [phone] [place] [facility] 230 [place], [place] [phone] Social History Tobacco Use Types Packs/Day Years [...] 05/18/2025 1:30 PM EDT Medication Management [address] [address] Isaiah Contreras, PharmD [address] [place] [address] 06/07/2025 1:00 PM EDT Clinical Support [facility] MED[facility]INE [address] [place] [address] Frida Knapp, OZZY documented as of this encounter Visit Diagnoses Not on filedocumented in this encounter Additional Health Concerns Assessment Noted Time PHQ-9 Depression Total Score: 13 024 11:27 AM EDT documented as of this encounter Care Teams Student Services Dean Relationship Specialty Start Date End Date Ginger Perez FNP [address] [place] [address] PCP - General Family Medicine 08/13/22 [facility] 11/01/22 documented as of this encounter
--- OUTSIDE RECORDS SUMMARY | 2025-05-10 15:43 | XMS_ITS | Encounter Summary ---
Author Organization [employer] Address [address] [facility] [address] [place] [address] Care Team Providers Care C D Still Operator Name Role Phone Ginger Perez [facility] Primary Care Provider [phone] Reason for Visit * Reason Comments Med Refill Encounter Details Date Type Department Care Team (Late st Contact Info) Description 01/14/2025 Refill [facility] MED[facility]INE 230 [place], [place] [phone] Donna Dow, 230 [place], [place] [phone] Mixed anxiety and depressive disorder Social History [...] Description 05/18/2025 1:30 PM EDT Medication Management [address] [address] Isaiah Contreras, PharmD [address] [place] [address] 06/07/2025 1:00 PM EDT Clinical Support [address] [address] Frida Knapp, OZZY documented as of this encounter Visit Diagnoses Diagnosis Mixed anxiety and depressive disorder Dysthymic disorder documented in this encounter Additional Health Concerns Assessment Noted Time PHQ-9 Depression Total Score: 13 024 11:27 AM EDT documented as of this encounter Care Teams C D Still Operator Relationship Specialty Start Date End Date Ginger Perez FNP [address] [place] [address] PCP - General Family Medicine 08/13/22 [facility] Home Care 11/01/22 documented as of this encounter
--- OUTSIDE RECORDS SUMMARY | 2025-05-10 15:43 | XMS_ITS | Encounter Summary ---
Author Organization [employer] Address [address] [facility] [address] [address] Care Team Providers Care Grinding And Polishing Laborer Name Role Phone [place] [facility] Primary Care Provider [phone] Reason for Visit * Reason Onset Date Comments Nurse Triage 03/31/2025 Encounter Details Date Type Department Care Team ([facility] st Contact Info) Description 03/31/2025 Telephone [facility] MED[facility]INE 230 [place] [address] [facility] 230 [place] [address] Nurse Triage Social History Tobacco Use Types [...] Telephone Encounter - Francie Au RN - 03/31/2025 3:06 PM EDT Triage call Pt reports being in a car in [place] several days ago and receiving numerous mosquito bites. Pt reports 4 bites on palm of left hand, 3 bites on palm of right hand and many bites on lower extremities. Pt reports bumps with redness and very itchy. No open areas. Pt has been applying calamine lotion with some effect. Pt is advised to try ice for 30 secs to see if that helps and Pt agrees to try this. Pt is a diabetic and is advised to come to [facility] open till 8pm. Pt reports will come to [facility] tomorrow 04/01/25 hours given open 830am to 400pm. Pt agrees with disposition and insurance is verified as active. Protocol Used: Mosquito Bite (Adult) Protocol-Based Disposition: See in Office or Video Visit within 3 Days Video visit not offered Positive Triage Questions: * Severe local itching (i.e., interferes with work, school, sleep) and not improved after 24 hours of hydrocortisone cream * Patient wants to be seen * All higher-acuity triage questions were negative Care Advice Discussed: * Reassurance and Education - Mosquito Bites * Symptoms and Expected Course * Don't Scratch * Four Simple Home Remedies for Itchy Mosquito Bites * Hydrocortisone Cream for Severe Itching * Antihistamine Medicines for Severe Itching * Antihistamine Medicines - Extra Notes and Warnings * Reasons To Call Back - Looks infected (such as spreading redness, red streak, pus) - Severe itching last more than 2 days on treatment - Skin around bite has blisters or turns purple - You become worse * Telephone Encounter - Bernadine Zamarripa - 03/31/2025 2:41 PM EDT Symptoms: Mosquito Bite, Itching - No Rash, Sleeping Difficulty Outcome: Schedule an urgent appointment (within 4 hours) or talk to a nurse or provider soon Reason: Severe itching now The caller accepted this outcome. Contact pt at [phone] ([email or web address]) documented in this encounter Plan of Treatment Upcoming Encounters Date Type Department Care Team (Late st Contact Info) Description 05/18/2025 1:30 PM EDT Medication Management [address] [address] Isaiah Contreras, PharmD [address] [place] [address] 06/07/2025 1:00 PM EDT Clinical Support [facility] [address] [place] [address] Frida Knapp, OZZY documented as of this encounter Visit Diagnoses Not on filedocumented in this encounter Additional Health Concerns Assessment Noted Time PHQ-9 Depression Total Score: 13 024 11:27 AM EDT documented as of this encounter Care Teams Grinding And Polishing Laborer Relationship Specialty Start Date End Date Ginger Preez FNP [address] [place] [address] PCP - General Family Medicine 08/13/22 [facility] Home Care 11/01/22 documented as of this encounter
--- OUTSIDE RECORDS SUMMARY | 2025-05-10 15:43 | XMS_ITS | Encounter Summary ---
Author Organization [employer] Address [address] [facility] 7[address] [place] [address] Care Team Providers Care Baby Attendant Name Role Phone [place] [facility] Primary Care Provider [phone] Reason for Visit * Reason Onset Date Comments Referral 07/19/2023 Encounter Details Date Type Department Care Team ([facility] st Contact Info) Description 07/19/2023 Telephone [facility] MEDICINE 230 [place] [address] [facility] 230 [place] [address] Referral Social History Tobacco Use Types Packs/Day [...] 10:29 AM EST Tc from sarah with [facility] states [facility] has not received referral. Also requesting for referral to be sent to a different location due to no availability. Any questions, contact sarah at [phone] documented in this encounter Plan of Treatment Upcoming Encounters Date Type Department Care Team (Late st Contact Info) Description 05/18/2025 1:30 PM EDT Medication Management [address] [address] Isaiah Contreras, PharmD [address] [place] [address] 06/07/2025 1:00 PM EDT Clinical Support [facility] MEDICINE [address] [place] [address] Frida Knapp, RN documented as of this encounter Visit Diagnoses Not on filedocumented in this encounter Additional Health Concerns Assessment Noted Time PHQ-9 Depression Total Score: 16 023 9:09 AM EDT documented as of this encounter Care Teams Baby Attendant Relationship Specialty Start Date End Date Ginger Perez FNP [address] [place] [address] PCP - General Family Medicine 08/13/22 [facility] [place] [facility] 11/01/22 documented as of this encounter
--- OUTSIDE RECORDS SUMMARY | 2025-05-10 15:43 | XMS_ITS | Encounter Summary ---
Author Organization [employer] Address [address] [facility] [address] [address] Care Team Providers Care Teller Manager Name Role Phone [place] [facility] Primary Care Provider [phone] Reason for Visit * Reason Onset Date Comments Durable Medical Equipment 12/18/2022 Encounter Details Date Type Department Care Team ([facility] st Contact Info) Description 12/18/2022 Telephone [facility] MED[facility]INE 230 [place] [address] [facility] 230 [place] [address] Durable Medical Equipment Social History Tobacco Use [...] the largest size for disposable bed pads. Hydraulic Rubbish Compactor Mechanic suggested a script for reusable bed pads as they are larger. A new script for reusable bed pads generated for signature. VM left with information for patient. * Telephone Encounter - Brenda Velarde - 12/18/2022 2:13 PM EDT Tc from Ramya requesting bigger bed pads . States pt is having hard time with the ones she haves . documented in this encounter Plan of Treatment Upcoming Encounters Date Type Department Care Team (Late st Contact Info) Description 05/18/2025 1:30 PM EDT Medication Management [address] [address] Isaiah Contreras, Ana PaulaD 230 [place] [address] 06/07/2025 1:00 PM EDT Clinical Support [address] [address] Frida Knapp, OZZY documented as of this encounter Visit Diagnoses Not on filedocumented in this encounter Additional Health Concerns Assessment Noted Time PHQ-9 Depression Total Score: 0 12/12/19 23 3:58 PM EDT documented as of this encounter Care Teams Teller Manager Relationship Specialty Start Date End Date Ginger Perez FNP [address] [place] [address] PCP - General Family Medicine 08/13/22 [facility] Home Care 11/01/22 documented as of this encounter
--- OUTSIDE RECORDS SUMMARY | 2025-05-10 15:43 | XMS_ITS | Encounter Summary ---
Author Organization [employer] Address [address] [facility] 7t [place] [address] Care Team Providers Care Financial Accounting Manager Name Role Phone [place] [facility] Primary Care Provider [phone] Encounter Details Date Type Department Care Team ([facility] st Contact Info) Description 12/30/2024 Orders Only [facility] [address] [place], [place] [phone] Mary Gu Social History Tobacco Use Types Packs/Day Years [...] Description 05/18/2025 1:30 PM EDT Medication Management [address] [address] Isaiah Contreras, PharmD [address] [place] [address] 06/07/2025 1:00 PM EDT Clinical Support [address] [address] Frida Knapp RN documented as of this encounter Procedures Procedure Name Priority Date/Time Associated Diagnosis Comments HPV MRNA E6/E7 REFLEX TO HPV 16, 18/45 Routine 09/08/2024 12:00 AM EST documented in this encounter Results * HPV mRNA E6/E7 w/Reflex to HPV Genotypes 16, 18/45 (09/08/2024 12:00 AM EST) us Historical Provider LAB CYTOLOGY ORDERABLES F inal Result documented in this encounter Visit Diagnoses Not on filedocumented in this encounter Additional Health Concerns Assessment Noted Time PHQ-9 Depression Total Score: 13 024 11:27 AM EDT documented as of this encounter Care Teams Financial Accounting Manager Relationship Specialty Start Date End Date Ginger Perez FNP [address] [place] [address] PCP - General Family Medicine 08/13/22 [facility] [place] 11/[place]/22 documented as of this encounter
--- OUTSIDE RECORDS SUMMARY | 2025-05-10 15:43 | XMS_ITS | Encounter Summary ---
Author Organization [employer] Address [address] [facility] 7[address] [place] [address] Care Team Providers Care Director Of Customer Service Name Role Phone [place] [facility] Primary Care Provider [phone] Reason for Visit * Reason Onset Date Comments Durable Medical Equipment 12/18/2022 Encounter Details Date Type Department Care Team ([facility] st Contact Info) Description 12/18/2022 Telephone [facility] MEDICINE 230 [place] [address] [facility] 230 [place] [address] Durable Medical Equipment Social History Tobacco Use [...] Miscellaneous Notes * Telephone Encounter - Mireya Viramontes - 01/02/2023 9:10 AM EDT Thank you, script generated for signature. * Telephone Encounter - Mireya Viramontes - 12/19/2022 10:52 AM EDT Please review message below regarding nebulizer. Patient last appointment was on 12/11, if you agreewith request please add an addendum to chart note. Thank you. * Telephone Encounter - Brenda Velarde - 12/18/2022 2:22 PM EDT Tc from sarah from [facility] requesting a new nebulizer machine . States pt informed old one stopped working . documented in this encounter Plan of Treatment Upcoming Encounters Date Type Department Care Team (Late st Contact Info) Description 05/18/2025 1:30 PM EDT Medication Management [address] [address] Isaiah Contreras, PharmD 230 [place] [address] 06/07/2025 1:00 PM EDT Clinical Support [address] [address] Frida Knapp, OZZY documented as of this encounter Visit Diagnoses Not on filedocumented in this encounter Additional Health Concerns Assessment Noted Time PHQ-9 Depression Total Score: 0 12/12/19 23 3:58 PM EDT documented as of this encounter Care Teams Director Of Customer Service Relationship Specialty Start Date End Date Ginger Perez FNP 230 [place] [address] PCP - General Family Medicine 08/13/22 [facility] [place] [facility] 11/01/22 documented as of this encounter
--- OUTSIDE RECORDS SUMMARY | 2025-05-10 15:43 | XMS_ITS | Encounter Summary ---
Author Organization [employer] Address [address] [facility] [address] [place] [address] Care Team Providers Care Mercerizing Range Feeder Name Role Phone [facility] Primary Care Provider [phone] Reason for Visit * Reason Onset Date Comments Nurse Triage 08/18/2024 Encounter Details Date Type Department Care Team ([facility] st Contact Info) Description 08/18/2024 Telephone [facility] MEDICINE 230 [place] [address] [facility] 230 [place] [address] Nurse Triage Social History Tobacco Use Types [...] AM EST Tc from pt returning call [phone] * Telephone Encounter - Francie Au RN - 08/18/2024 11:47 AM EST Triage call Pt reports abnormal vaginal bleeding which has been occurring for last several months. Pt reports spotting started yesterday and usually this is gone in a day. This time it is the second day of this spotting and drainage is black in color. Pt denies any other symptoms. Pt reports VIDEO GAME DESIGNER advised to call to see provider. ASK [...] Description 05/18/2025 1:30 PM EDT Medication Management [facility] MEDICINE [address] [place] [address] Isaiah Contreras, PharmD 230 [place] [address] 06/07/2025 1:00 PM EDT Clinical Support [address] [address] Frida Knapp, RN documented as of this encounter Visit Diagnoses Not on filedocumented in this encounter Additional Health Concerns Assessment Noted Time PHQ-9 Depression Total Score: 13 024 11:27 AM EDT documented as of this encounter Care Teams Mercerizing Range Feeder Relationship Specialty Start Date End Date AnaGinger canales FNP [address] [place] [address] PCP - General Family Medicine 08/13/22 [facility] [place] [facility] 11/01/22 documented as of this encounter
--- OUTSIDE RECORDS SUMMARY | 2025-05-10 15:43 | XMS_ITS | Encounter Summary ---
Author Organization [employer] Address [address] [facility] 7[address] [place] [address] Care Team Providers Care Workforce Services Representative Name Role Phone [facility] Primary Care Provider [phone] Reason for Visit * Reason Comments Med Refill Encounter Details Date Type Department Care Team ([facility] st Contact Info) Description 06/25/2023 Refill [facility] MEDICINE 230 [place], [place] [phone] [facility] 230 [place] [address] Muscle spasm Social History Tobacco Use Types [...] Description 05/18/2025 1:30 PM EDT Medication Management [address] [address] Isaiah Contreras, PharmD [address] [place] [address] 06/07/2025 1:00 PM EDT Clinical Support [address] [address] Frida Knapp, RN documented as of this encounter Visit Diagnoses Diagnosis Muscle spasm Spasm of muscle documented in this encounter Additional Health Concerns Assessment Noted Time PHQ-9 Depression Total Score: 16 023 9:09 AM EDT documented as of this encounter Care Teams Workforce Services Representative Relationship Specialty Start Date End Date Ginger Perez FNP [address] [place] [address] PCP - General Family Medicine 08/13/22 [facility] [place] 11/01/22 documented as of this encounter
--- OUTSIDE RECORDS SUMMARY | 2025-05-10 15:43 | XMS_ITS | Encounter Summary ---
Author Organization [employer] Address [address] [facility] [address] [place] [address] Care Team Providers Care District Commercial Superintendent Name Role Phone [facility] Primary Care Provider [phone] Reason for Visit * Reason Onset Date Comments Durable Medical Equipment 11/12/2024 Encounter Details Date Type Department Care Team ([facility] st Contact Info) Description 11/12/2024 Telephone [facility] MEDICINE 230 [place] [address] [facility] 230 [place] [address] Durable Medical Equipment Social History Tobacco Use [...] encounter Miscellaneous Notes * Telephone Encounter - Pradip Viramontes - 12/02/2024 4:02 PM EDT Tc from pt requesting status of ensure as she states been waiting for the other 2 boxes that was never received. [phone] * Telephone Encounter - Jazzmine Dukes - 11/12/2024 2:57 PM EDT Tc from pt stating received two boxes of vanilla ensure and normally she received four boxes. documented in this encounter Plan of Treatment Upcoming Encounters Date Type Department Care Team (Late st Contact Info) Description 05/18/2025 1:30 PM EDT Medication Management [facility] MEDICINE 230 [place] [address] Isaiah Contreras, PharmD 230 [place], [place] [phone] 06/07/2025 1:00 PM EDT Clinical Support [facility] MEDICINE 230 [facility] [place] [address] Frida Knapp, RN documented as of this encounter Visit Diagnoses Not on filedocumented in this encounter Additional Health Concerns Assessment Noted Time PHQ-9 Depression Total Score: 13 024 11:27 AM EDT documented as of this encounter Care Teams District Commercial Superintendent Relationship Specialty Start Date End Date Ginger Perez FNP 230 [facility] [place] [address] PCP - General Family Medicine 08/13/22 [facility] [place] 11/01/22 documented as of this encounter
--- OUTSIDE RECORDS SUMMARY | 2025-05-10 15:43 | XMS_ITS | Clinical Summary ---
Demographics Address [address] [place] [address] Mobile Phone Work Phone Home Phone Email Address Preferred Language en Marital Status Single Oriental Orthodox Affiliation Unknown Race Other Race Ethnic Group Unknown Author Organization [employer] Address [address] [place] [address] Care Team Providers Care Manager Category Name Role Phone Ginger Perez [facility] Primary Care Provider Allergies Active Allergy Reactions Criticality Noted Date [...] time. 020 Active Blood Glucose Monitoring Suppl [facility] Active Alcohol Swabs (Alcohol Prep) padsIndications :Type 2 diabetes mellitus with hyperglycemia, with long-term current use of insulin ([facility]) Use as directed 100 each [...] of insulin ([facility]) Use as directed to check blood sugar four times daily 1 each 023 Active glucose blood test stripIndication s:Type 2 diabetes mellitus with hyperglycemia, with long-term current use of insulin ([facility]) Use as directed to check [...] of insulin ([facility]) USE TO TEST BLOOD SUGAR FOUR TIMES DAILY 100 each 11 023 Active Blood Pressure kitIndications: Type 2 diabetes mellitus with hyperglycemia, with long-term current use of insulin ([facility]) Use as directed 1 kit 024 Active melatonin 5 MG tabletIndicatio ns:Mixed anxiety and depressive disorder TAKE 1 TABLET BY MOUTH EVERY EVENING 2-3 HOURS BEFORE BEDTIME. 90 tablet 3 024 Active tiZANidine (Zanaflex) 4 MG tabletIndicatio [...] for severe pain. 12 tablet 024 Active naloxone (Narcan) 4 mg/0.1 mL nasal sprayIndication s:Low back pain at multiple sites Administer 1 spray (4 mg) into affected nostril(s) if needed for opioid reversal. May repeat every 2-3 minutes if needed, alternating nostrils, until medical assistance becomes available. 2 each 3 025 2025 Active olmesartan (BENIcar) 5 MG tabletIndicatio ns:Primary hypertension TAKE 2 TABLETS BY MOUTH ONCE DAILY IN THE MORNING 180 tablet 3 025 Active prazosin (Minipress) 5 MG capsuleIndicati ons:Mixed anxiety and depressive disorder TAKE 1 CAPSULE BY MOUTH AT BEDTIME 90 capsule 2 025 Active albuterol (2.5 MG/3ML) 0.083% nebulizer solutionIndicat ions:Moderate persistent asthma without complication INHALE 1 AMPULE USING A NEBULIZER EVERY 6 HOURS NEEDED FOR WHEEZING 90 mL 11 025 Active cholecalciferol VITAMIN D (Vitamin D-3) 50 MCG (2000 UT) tabletIndicatio ns:Chronic pain syndrome TAKE 1 TABLET BY MOUTH EVERY MORNING 90 tablet 1 025 Active Tirzepatide (Mounjaro) 5 MG/0.5ML solution auto-injectorIn dications:Type 2 diabetes mellitus with chronic kidney disease, with long-term current use of insulin, unspecified CKD stage ([facility]) Inject 5 mg under the skin 1 (one) time per week. 2 mL 3 025 Active gabapentin (Neurontin) 300 MG capsuleIndicati ons:Mixed anxiety and depressive disorder Take 1 capsule by mouth every morning and every noon. Also take Gabapentin 600 mg 2 talets at bedtime 30 capsule 5 025 Active propranolol (Inderal) 40 MG tablet TAKE 1 TABLET BY MOUTH TWICE DAILY 180 tablet 1 025 Active Alcohol Swabs (Alcohol Prep) 70 % padsIndications :Type 2 diabetes mellitus with hyperglycemia, with long-term current use of insulin ([facility]) USE DIRECTED FIVE TIMES DAILY 100 each 11 025 Active polyethylene glycol, PEG, 3350 (Glycolax) 17 GM/SCOOP powderIndicatio ns:Constipation , unspecified constipation type MIX 17G (1 CAPFUL) IN 8 OUNCES OF WATER AND TAKE BY MOUTH TWICE A DAY FOR 3 DAYS 510 g 2 025 Active triamcinolone (Kenalog) 0.1 % ointmentIndicat ions:Rash and nonspecific skin eruption Apply topically 2 times daily. For 2 weeks 15 g 025 Active lidocaine (Lidoderm) 5 % patchIndication s:Other chronic pain APPLY 1 PATCH TOPICALLY TO SKIN, LEAVE ON FOR 12 HOURS AND OFF FOR 12 HOURS DIRECTED 30 patch 1 025 Active clonazePAM (KlonoPIN) 1 MG tabletIndicatio ns:Mixed anxiety and depressive disorder TAKE 1 TABLET BY MOUTH THREE TIMES DAILY 84 tablet 025 Active gabapentin (Neurontin) 600 MG tablet TAKE 1 TABLET BY MOUTH AT BEDTIME 30 tablet 025 Active clonazePAM (KlonoPIN) 1 MG tabletIndicatio ns:Mixed anxiety and depressive disorder TAKE 1 TABLET BY MOUTH THREE TIMES DAILY 84 tablet 025 2024 Discontinued Hospital, Clinic, or Other Facility Administered Medication Ordered Dose Route Frequency Start Date End Date Status lidocaine (Xylocaine) 2 % injection 40 mgIndications:Vulvar lesion,Encounter for incision and drainage procedure 40 mg ID Once 12/03/2023 Ac tive Active Problems Problem Noted Date Diagnosed Date Long-term current use of benzodiazepine 03/04/20 Physical deconditioning 05/11/2024 Gait instability 05/11/2024 Renal cyst 02/25/2024 Renal calculi 11/18/2023 Chronic liver disease 10/03/2023 Overview (10/03/2023): ? 03/13/2023- abdominal ultrasound with liver elastography ordered through weight mngmt clinic which patient is no longer attending. Reports with hepatic steatosis with evidence of advanced chronic liver disease ? 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 EEG's normal. Per neurology notes, possible dyskenisa s/t hx of antipsychotic medications which patient is no longer taking. Not currently taking any anti- seizure medications. No seizure episodes >2 months. Episodes triggered by emotional stress. Bariatric surgery status 09/29/2022 Overview (09/29/2022): Lap band was removed approx 8 years ago in [facility]; repeat lap band through [facility] without weight loss. Very upset by experience at [facility]. Currently working with [facility] weight mgnmt for removal of lap band. Assessment & Plan (05/03/2023 10:30 AM EDT): Details of current weight mngmt plan through [facility] unclear. Will request notes and follow up as indicated Obstructive sleep apnea 09/29/2022 Overview (06/04/2023): Compliant with BiPAP Followed by [facility] neurology and sleep clinic. Dr. Temple Gender dysphoria in adult 09/29/2022 Overview (09/29/2022): Interested in pursuing top and bottom gender reassignment surgery Not a candidate for hormone therapy Healthcare maintenance 09/29/2022 Overview (02/25/2024): Mammo: 07/2022--Birads 2 Pap: HPV negative 2019, no cytology on record. C-scope: Upcoming colonoscopy [facility] GI BMD: Routine age 63 Chronic pain 09/29/2022 Overview (09/29/2022): all over previously seen by pain mngmt; not interested in injections. Tizanidine PRN. Gabapentin 900mg in evening. Lidocaine patches PRN. Currently has PT 2x/weekly for chronic knee pain. Assessment & Plan (05/03/2023 10:34 AM EDT): Pt declines referral to PT or pain mngmt Suspect underlying fibromyalgia Counseled patient or risks of taking non-prescribed medication and advised patient not to continue taking friend's suboxone. Patient verbalizes understanding and agrees to plan Pt does have remote hx of JABARI. Declines referral to [facility] at this time however will continue to discuss this as option for dual mngmt of chronic pain and JABARI at follow up. Pt has narcan at home Chronic post-traumatic stress disorder 0 Mixed hyperlipidemia 05/25/2020 Diabetes mellitus 05/25/2020 Coarse tremors 11/12/2019 Hypertensive disorder 08/24/2014 Overview (05/03/2023): Olmesartan 5mg daily Propranolol 40mg b.i.d for [...] Assessment & Plan (05/03/2023 10:09 AM EDT): Continue current regimen BP well controlled Plan to repeat labs at follow up in 1 month Assessment & Plan (12/13/2022 10:26 AM EDT): STOP lisinopril hydrochlorothiazide Will continue propranolol 40mg b.i.d for panic [...] needed. Asthma 08/18/2012 Dyslipidemia 08/18/2012 Overview (09/29/2022): Atorvastatin 40mg Mixed anxiety and depressive disorder [...] medication management. Any issues or concerns, contact [facility]. All his questions were answered [...] be left alone, encouraged to request increased CERTIFIED CAREGIVER hours. Will increase bedtime Gabapentin to 1200 [...] of family members and/or 1 of 2 CERTIFIED CAREGIVER's always present. Patient was able to contract [...] prescriber. We did not discuss my planned usp today. F/U with me in 1 month. [...] Assessment & Plan (09/29/2022 3:55 PM EST): START melatonin 5mg 2-3 hours before bed Pt takes tizanidine for chronic pain mngmt; advised to time last tablet for 30 minutes before bed Reviewed sleep hygiene techniques with initial goal of setting a consistent bedtime for the next 2 weeks. 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 Strongly encouraged patient to continue with CERTIFIED CAREGIVER/VNA services due to multiple chronic conditions and patient's difficulty self managing care. Patient verbalizes understanding and agrees to plan Assessment & Plan (05/03/2023 10:15 AM EDT): Continue to work with [facility] DM educator Henny-will request records and recent blood glucose log with plan to titrate up tresiba if no concern re hypoglycemia based on repot. Unfortunately patient does not have dexcom sensor in office today or home BS log. Will submit PA request for mounjaro given max dose of trulicity Assessment & Plan (12/13/2022 10:27 AM EDT): Lab Results Component Value Date HGBA1C 8.8 (A) 12/11/2022 INCREASE jardiance 25mg daily Assessment & Plan (09/29/2022 3:56 PM EST): A1c improving! Continue current regimen Assessment & Plan (08/31/2022 9:41 AM EST): Increase tresiba to 28 units subcutaneous daily Continue trulicity 3mg subcutaneous weekly until 4.5mg subcutaneous is available Continue metforming 1000mg b.i.d Referral placed back to Endocrinology to establish with new provider for ongoing care Assessment & Plan (08/13/2022 4:43 PM EST): -Continue with current medication regimen, denies symptoms of hypoglycemia or hyperglycemia -Follow up with PCP Epilepsy 04/18/2012 09/29/2022 Encounters Date Type Department Care Team Description 04/19/2025 Telephone [facility] MEDICINE [address] [place] [id number] Ginger Perez FNP 04/19/2025 Refill [facility] [address] [place] [address] Ginger Perez FNP 04/14/2025 Telephone [facility] MEDICINE [address] [facility] [place] [address] Diboll GERALD Milse MRI ORDER 04/14/2025 Refill [facility] MEDICINE [address] [facility] [place] [address] Ana GERALD Miles Mixed anxiety and depressive disorder 04/09/2025 Refill [facility] [address] [place] [address] Ana GERALD Miles Other chronic pain 03/31/2025 Telephone [facility] MEDICINE [address] [place] [address] Ginger Perez FNP Nurse Triage 03/29/2025 Refill [facility] [address] [place] [address] Ginger Perez FNP Rash and nonspecific skin eruption 03/26/2025 Telephone [facility] MEDICINE [address] [facility] [address] [place] [address] Ginger Perez FNP Care Coordination 03/23/2025 Refill [facility] MEDICINE [address] [facility] [place] [address] Ginger Perez FNP Constipation, unspecified constipation type 03/22/2025 11:30 AM EDT Office Visit [facility] MEDICINE [address] [place] [place] [address] Ginger Perez FNP Gait instability (Primary Dx); Type 2 diabetes mellitus with hypoglycemia without coma, with long-term current use of insulin ([facility]); Postmenopausal bleeding; Low back pain at multiple sites 03/22/2025 Travel 03/19/2025 Refill [facility] MEDICINE [address] [facility] [place] [place] [address] Melani Machuca MD Mixed anxiety and depressive disorder 03/19/2025 Telephone [facility] MEDICINE [address] [place] [address] Ginger Perez FNP Chart Prep 03/15/2025 Telephone [facility] MEDICINE [address] [place] [address] Ginger Perez FNP Appointment Rescheduling 03/12/2025 Telephone [facility] [address] [facility] [place] [address] Ginger Perez [facility] Chart Prep 03/12/2025 Telephone [facility] [address] [facility] [address] [place] [place] [address] DibollGinger [facility] Telephone call 03/04/2025 1:00 PM EDT Clinical Support [facility] [address] [facility] [place] [place] [address] Frida Knapp, RN Long-term current use of benzodiazepine (Primary Dx) 03/04/2025 Telephone [facility] [place] [place] [address] Frida Knapp, RN C/O vaginal bleeding; GIA scoring; UTOX Neg BZO 03/04/2025 Travel 03/04/2025 Telephone [facility] [place] [address] Frida Knapp, OZZY Error (VOID this visit) 03/02/2025 Orders Only GENERIC EXTERNAL DATA DEPARTMENT Provider, Generic External Data 02/24/2025 Refill [facility] MEDICINE [facility] [place] [place] [address] Ginger Perez [facility] Type 2 diabetes mellitus with hyperglycemia, with long-term current use of insulin ([facility]) 02/23/2025 Refill [facility] MEDICINE [facility] [place] [id number] AnaGinger canales [facility] Type 2 diabetes mellitus with hyperglycemia, with long-term current use of insulin ([facility]) 02/17/2025 Orders Only GENERIC EXTERNAL DATA DEPARTMENT Provider, Generic External Data 02/15/2025 Refill [facility] MEDICINE [facility] [place] [address] Ginger Perez [facility] Mixed anxiety and depressive disorder 02/08/2025 Refill [facility] [address] [place], [place] [id number] [facility] Mixed anxiety and depressive disorder from Last 3 Months Immunizations Immunization Administration Dates Next Due Hep B, adult [...] Sign Reading Time Taken Comments Blood Pressure 128/80 03/22/2025 11:34 AM EDT Pulse 68 03/22/2025 11:34 AM EDT Temperature 36.4 C (97.6 F) 03/22/2025 11:34 AM EDT Respiratory Rate 19 03/22/2025 11:34 AM EDT Oxygen Saturation 100% 01/18/2025 11:06 AM EDT Inhaled Oxygen Concentration - - Weight 88.1 kg (194 lb 3.2 oz) 03/22/2025 11:34 AM EDT Height 157.5 cm (5' 2 ) 03/22/2025 11:34 AM EDT Body Mass Index 35.52 03/22/2025 11:34 AM EDT Plan of Treatment Upcoming Encounters Date Type Department Care Team (Late st Contact Info) Description 05/18/2025 1:30 PM EDT Medication Management [facility] MEDICINE [address] [place] [phone] Isaiah Contreras, PharmD [address] [place] [address] 06/07/2025 1:00 PM EDT Clinical Support [facility] MEDICINE [address] [place] [id number] Frida Knapp, RN Health Maintenance Due Date Last Done Comments CT Colonography 1963 FIT DNA/Cologuard 1963 FIT 1963 FOBT 1963 Sigmoidoscopy 1963 Disability Screening 1963 Diabetes: Foot Exam 1973 Eye Exam 1973 Alcohol/Substance Use Screening 1975 Hepatitis A Vaccines (1 of 2 - Risk 2-dose series) 1982 Zoster Vaccines (2 of 2) 06/07/2023 04/12/2023 RSV Patients and Patients Aged 60 years or older (1 - Risk 60-74 years 1-dose series) 2023 Depression Monitoring 09/16/2024 03/16/2024, 024 COVID-19 Vaccine ( season) 2025 Influenza Vaccine (#1) 2025 , 06/21/2022, 07/06/2019, Additional history exists Mammogram 08/27/2025 08/27/2024, 07/03, 2022, Additional history exists Lipid Panel 09/14/2025 09/14/2024, 06/03, 09/25/2022, Additional history exists Diabetes: Hemoglobin A1C 09/22/2025 025, 12/16/2024, 05/13/2024, Additional history exists SDOH Screening 12/07/2025 12/07/2024 Tobacco Screening 03/22/2026 03/22/2025 Cervical Cancer Screening 09/08/2029 HPV/Cotest 09/08/2029 09/08/2024, 09/09/2019 Pap Smear 09/08/2029 09/08/2024, 09/09/2019 DTaP/Tdap/Td Vaccines (3 - Td or Tdap) 06/21/2032 06/21/2022, 02/07/2010 Colonoscopy 12/24/2034 12/24/2024 Colorectal Cancer Screening 12/24/2034 Hepatitis B Vaccines Discontinued 06/25/2019, 05/06/20 Hepatitis [...] Name Priority Date/Time Associated Diagnosis Comments POCT GLYCATED HEMOGLOBIN, TOTAL Routine 03/22/2025 11:53 AM EDT Type 2 diabetes mellitus with hypoglycemia without coma, with long-term current use of insulin ([facility]) POCT GLUCOSE Routine 03/22/2025 11:52 AM EDT Type 2 diabetes mellitus with hypoglycemia without coma, with long-term current use of insulin ([facility]) POCT BLANKA-14 URINE DRUG SCREEN Routine 03/04/2025 1:57 PM EDT Long-term current use of benzodiazepine DRUG MONITORING, BENZODIAZEPINES, QUANTITATIVE, URINE Routine 03/04/2025 1:30 PM EDT Long-term current use of benzodiazepine GLUCOSE, WHOLE BLOOD Routine 03/02/2025 3:33 PM EDT GLUCOSE, WHOLE BLOOD Routine 02/17/2025 1:51 PM EDT HM COLONOSCOPY Routine 12/24/2024 HIV 1/2 ANTIGEN/ANTIBODY, FOURTH GENERATION W/RFL Routine 10/01/2024 9:58 AM EST Type 2 diabetes mellitus with chronic kidney disease, with long-term current use of insulin, unspecified CKD stage ([facility]) LIPID PANEL, STANDARD Routine 09/14/2024 1:25 PM EST Type 2 diabetes mellitus with hypoglycemia without coma, with long-term current use of insulin (CMS/HCC) PAP SMEAR Routine 09/08/2024 9:30 AM EST Postmenopausal bleeding HPV MRNA E6/E7 REFLEX TO HPV 16, 18/45 Routine 09/08/2024 12:00 AM EST BI MAMMOGRAM SCREENING TOMOSYNTHESIS BILATERAL Routine 08/27/2024 1:05 PM EST Breast cancer screening by mammogram HEPATITIS C AB W/REFL TO HCV RNA, QN, PCR Routine 09/25/2022 12:06 PM EST Healthcare maintenance from Last 3 Months or Most Recently Relevant to Health Maintenance Results * (ABNORMAL) POCT HGB A1C (03/22/2025 11:53 AM EDT) Hemoglobin A1C 5.8(A) 4.0 - 5.7 % QC Media Lot # [id number] Lot# Expiration Date Blood 03/22/2025 11:5 3 AM EDT [facility] POINT OF CARE TEST ENTER/EDIT ORDERABLES Final Result * POCT Glucose (03/22/2025 11:52 AM EDT) Glucose Blood, POC 160 60 - 200 mg/dL QC Media Lot # [id number] Lot# Expiration Date 658, Blood Capillary blood specimen / Unknown 03/22/2025 11:52 AM EDT [facility] POINT OF CARE TEST ENTER/EDIT ORDERABLES Final Result * (ABNORMAL) POCT BLANKA-14 Urine Drug Screen (03/04/2025 1:57 PM EDT) THC Positive Negative Cocaine Screen, Urine Negative Negative Opiate Screen, Urine Negative Negative Methamphetamine Screen Urine Negative Negative Amphetamine Screen, Urine Negative Negative Benzodiazepines Screen, Urine Negative Negative Barbiturate Screen, Urine Negative Negative Methadone Screen, Urine Negative Negative Buprenophine Screen, Urine Negative Negative TCA, Urine Negative Negative MDMA Urine Negative Negative ng/mL Oxycodone Screen, Urine Negative Negative Phencyclidine (PCP), Urine Negative Negative Propoxyphene, Urine Negative Negative Fentanyl, Urine Negative Negative Urine Urine specimen obtained by clean catch procedure / Unknown 03/04/2025 1:57 PM EDT Frida Burleson RN - 03/04/2025 1:57 PM EDT UTOX cup Lot#[id number] Exp. 06/08/26 Internal Pass Control [facility] POINT OF CARE TEST ENTER/EDIT ORDERABLES Final Result * Drug Monitoring, Benzodiazepines, Quantitative, Urine (03/04/2025 1:30 PM EDT) Nordiazepam, GCMS Urine NEGATIVE [facility] Comment:[id number] ng/mL Oxazepam, GCMS Urine NEGATIVE [facility] Comment:[id number] ng/mL Lorazepam GCMS Urine NEGATIVE [facility] Comment:[id number] ng/mL Alprazolam, GCMS Urine NEGATIVE [facility] Comment:[id number] ng/mL Alphahydroxytriazolam, GCMS Ur NEGATIVE [facility] Comment:[id number] ng/mL Temazepam, GCMS Urine NEGATIVE [facility] Comment:[id number] ng/mL Alphahydroxymidazolam,GC MS Ur NEGATIVE [facility] Comment:[id number] ng/mL Aminoclonazepam, GCMS Urine 941 [facility] Comment:[id number] ng/mL Flurazepam Metabolite,GCMS Ur NEGATIVE [facility] Comment:[id number] ng/mL Benzodiazepines Comments SEE NOTE [facility] Comment:NOTES AND COMMENTSTh is drug testing is for medical treatment only. Analysiswas performed as non-forensic testing and these resultsshould be used only by healthcare providers torender diagnosis or treatment, or to monitor progress ofmedical conditions.Benzodiazepines Notes:Aminoclonazepam detected is consistent with the use of thedrug Clonazepam.LDT Notes:Confirmation tests were developed and their analyticalperformance characteristics have been determined by [employer]. It has not been cleared orapproved by the FDA. This assay has been validated pursuantto the CLIA regulations and is used for clinical purposes.Healthcare Providers needing Interpretation assistance,please contact us at [phone] ( ) M-F,8am to 10pm ESTPERFORMING SITE:[facility] [employer], [address] [place] [phone] Coremaking Supervisor: LIEN HARO MD, CLIA:[id number] Urine (Urine, Random) 03/04/2025 1:30 PM EDT 03/04/2025 4:21 PM EDT [facility] QUAL RESEARCH MANAGER LAB URINE ORDERABLES Final Re sult Performing Organization Address [facility]/ZIP Co de Phone Number [facility] [address] [place] [phone] * Glucose, Whole Blood (03/02/2025 3:33 PM EDT) Only the most recent of2 resultswithin the time period is included. Glucose, Whole Blood 103 60 - 115 mg/dL [facility] Comment:METER #: [id number] Testing performed in the Endocrinology Department [address], [address], [facility]. 03/02/2025 3:33 PM EDT 03/02/2025 3:41 PM EDT Generic External Data Provider LAB BLOOD ORDERAB LES Final Result Performing Organization Address [facility]/ZIP Co de Phone Number [facility] [address] [place] [phone] * Hm Colonoscopy (12/24/2024) Colonoscopy Normal Normal Comment:negative repeat 10 y ears. Historical Provider HEALTH MAINTENANCE Final Result * HIV-1/2 Antigen and Antibodies, Fourth Generation, with Reflexes (10/01/2024 9:58 AM EST) HIV AB/AG Nonreactive Nonreactive [facility] Comment:HIV-1 p24 Ag and/or HIV-1/HIV-2 Ab not detected.A test result that is nonreactive does not exclude thepossibility of exposure to or infection with HIV-1 and/orHIV-2. Nonreactive results in this assay for individualswith prior exposure to HIV-1 and/or HIV-2 may be due toantigen and antibody levels that are below the limit ofdetection of this assay.The Evoleen HIV Ag/Ab Combo assay result andsupplemental assay results should be interpreted inconjunction with the patient's clinical presentation,history and other laboratory results. If the results areinconsistent with clinical evidence, additional testing issuggested to confirm the result. Blood Venous blood specimen / Unknown 10/01/2024 9:58 AM EST 10/01/2024 11:04 AM EST [facility] QUAL RESEARCH MANAGER LAB BLOOD ORDERABLES Final Re sult [facility] [address] [place] [phone] [phone] * (ABNORMAL) Lipid Panel, Standard (09/14/2024 1:25 PM EST) Triglycerides 123 <150 mg/dL [facility] Comment:Desirable Triglyceri de: less than 150 mg/dLBorderline High Triglyceride 150-199 mg/dLHigh Triglyceride: 200-499 mg/dLVery High Triglyceride: greater than or equal to 5OO mg/dL Cholesterol 146 <200 mg/dL [facility] Comment:Desirable Cholestero l: less than 200 mg/dLBorderline High Cholesterol: 200-239 mg/dLHigh Cholesterol: greater than 239 mg/dL LDL Cholesterol Calculated 83 <100 mg/dL [facility] Comment:Desirable LDL: less than 100 mg/dLNear Optimal/Above Optimal LDL: 110- 129 mg/dLBorderline High LDL: 130-159 mg/dLHigh LDL: 160-189 mg/dLVery High LDL: greater than or equal to 190 mg/dL HDL Cholesterol 39(L) >40 mg/dL [facility] Comment:Desirable HDL: great er than 40 mg/dL Note: This HDL assay may give artificially low results in patients with liver disease. Blood Venous blood specimen / Unknown 09/14/2024 1:25 PM EST 09/14/2024 4:07 PM EST [facility] LAB BLOOD ORDERABLES Final Re sult [facility] [address] [place] [phone] * Pap Smear (09/08/2024 9:30 AM EST) Swab Cervix uteri structure / Unknown 09/08/2024 9:30 AM EST 09/09/2024 10:20 AM EST Narrative [facility] - 09/17/2024 3:06 PM EST ----- ------- Name: Hilda Mcmahan Age/Sex: 59/F : 1965 Unit#: [id number] Attend Dr: CORBIN HUGHES CNM Re09/08/24 Status: DEP REF Location: [facility] Disch: ----- ------- SPEC : [id number] RECD: 09/09/24 STATUS: HENNA SOLIS NUM: [id number] LORI: 09/08/[address] [address]: CORBIN HUGHES CNM ENTERED: 09/09/24 SP TYPE: Pap Smr OTHR DR: ORDERED: Pap Smear Interpretation Satisfactory for evaluation. Negative for intraepithelial lesion or malignancy. No endocervical cells seen. HPV High Risk: Negative HPV Genotyping 16: Negative HPV Genotyping 18: Negative Clinical Information LMP: Postmenopausal Previous PAP test: WN Other history: Postmenopausal bleeding Material Received ThinPrep-Cervical ----- ------- Signed (signature on file) TALIB Roche (ASCP) 09/17/24 1506 ----- ------- END OF REPORT Corbin Hughes CNM LAB CYTOLOGY ORDERABLES F inal Result [facility] [address] [place] [phone] * HPV mRNA E6/E7 w/Reflex to HPV Genotypes 16, 18/45 (09/08/2024 12:00 AM EST) Historical Provider LAB CYTOLOGY ORDERABLES F inal Result * BI Mammogram Screening Tomosynthesis Bilateral (08/27/2024 1:05 PM EST) Anatomical Region Laterality Modality Breast Bilateral Mammography 08/27/2024 1:05 PM EST Narrative 09/08/2024 4:57 PM EST [facility] [address] [place] [address] Mammography Report Signed Patient: Hilda Mcmahan MR#: [id number] : 1965 Acct:[id number] Age/Sex: 59 / F ADM Date: 08/27/24 Loc: HO.MAMMO Attending Dr: Oz Sahni MD Ordering Physician: Ginger Perez QUAL RESEARCH MANAGER Results: 1Nega tive Date of Service: 08/27/24 Follow Up: 1 Year From Orig inal Mammogram Procedure(s): MM tomosynthesis screening BI Accession Number(s): [id number] cc: Ginger Perez QUAL RESEARCH MANAGER EXAMINATION: MM SCREENING DIGITAL BREAST TOMOSYNTHESIS, BILATERAL [...] by Pepper Mercer DO in OV> 09/08/24 1652 DD/ 1305 TD/TT: 08/27/24 1329 Oil Lease Broker: Procedure Note Donotuseinterpreter, Image - 09/08/2024 [facility] [address] [place] [address] Dr. [place]vey, DAREK [address] Mammography Report Signed Patient: Hilda McmahanMR#: [id number] : 1965Acct:[id number] Age/Sex: 59 / FADM Date: 08/27/24 Loc: HO.MAMMO Attending Dr: Oz Sahni MD Ordering Physician: DibollGinger FNPResults: 1Nega tive Date of Service: 08/27/24Follow Up: 1 Year From Orig inal Mammogram Procedure(s): MM tomosynthesis screening BI Accession Number(s): [id number] cc: [facility] QUAL RESEARCH MANAGER EXAMINATION: MM SCREENING DIGITAL BREAST TOMOSYNTHESIS, BILATERAL [...] 09/08/24 1654 DD/ 1305 TD/TT: 08/27/24 1329 Oil Lease Broker: [facility] QUAL RESEARCH MANAGER IMG BI PROCEDURES Final Resul t * Hepatitis C Antibody with Reflex to HCV, RNA, Quantitative, Real-Time PCR (09/25/2022 12:06 PM EST) Hepatitis C Antibody NON-REACT MARRY NON-REACT MARRY [facility] Index 0.12 <1.00 [employer] Comment: HCV antibody was non-reactive. There is no laboratory evidence of HCV infection. In most cases, no further action is required. However, if recent HCV exposure is suspected, a test for HCV RNA (test code 60682) is suggested. For additional information please refer to http://education.Gousto/faq/CAL90x9 (This link is being provided for informational/ educational purposes only.) Blood Venous blood specimen / Unknown 09/25/2022 12:06 PM EST 09/25/2022 12:06 PM EST Narrative [facility] - 09/27/2022 8:46 AM EST FASTING:YES FASTING: YES [facility] LAB BLOOD ORDERABLES Final Re sult [facility] [address], [place] [address] [facility] [address] [facility], (N[address]) [place] [address] from Last 3 Months or Most Recently Relevant to Health Maintenance Insurance [employer] (now [employer]) C3 Care Teams Manager Category Relationship Specialty Start Date End Date Diboll Ginger [facility] [address] [place] [phone] PCP - General Family Medicine 08/13/22 [facility] Home Care 11/01/22
--- OUTSIDE RECORDS SUMMARY | 2025-05-10 15:43 | XMS_ITS | Encounter Summary ---
Author Organization [employer] Address [address] [facility] [address] [place] [address] Care Team Providers Care Folder Machine Adjuster Name Role Phone [facility] Primary Care Provider [phone] Reason for Visit * Reason Comments Med Refill Encounter Details Date Type Department Care Team (Late st Contact Info) Description 02/04/2025 Refill [facility] [address] [place], [place] [phone] [facility] [address] [place] [address] Type 2 diabetes mellitus with chronic kidney [...] Description 05/18/2025 1:30 PM EDT Medication Management [facility] [address] [place] [phone] Isaiah Contreras, PharmD [address] [place] [address] 06/07/2025 1:00 PM EDT Clinical Support [facility] [address] [place] [address] Frida Knapp, OZZY documented as of this encounter Visit Diagnoses Diagnosis Type 2 diabetes mellitus with chronic kidney disease, with long-term current use of insulin, unspecified CKD stage (CMS/HCC) documented in this encounter Additional Health Concerns Assessment Noted Time PHQ-9 Depression Total Score: 13 024 11:27 AM EDT documented as of this encounter Care Teams Folder Machine Adjuster Relationship Specialty Start Date End Date Ginger Perez FNP [address] [place] [phone] PCP - General Family Medicine 08/13/22 [facility] Home Care 11/01/22 documented as of this encounter
--- OUTSIDE RECORDS SUMMARY | 2025-05-10 15:43 | XMS_ITS | Clinical Summary ---
Author Organization [address] [facility] Address [address] [place] [address] Phone Care Team Providers Care Shank Faker Name Role Phone [facility] Primary Care Provider [phone] Allergies Active Allergy Reactions Criticality Noted Date [...] DAYS 30 each 1 08/27/20 24 Active pantoprazole (PROTONIX) 40 mg EC tabletIndications :Bariatric surgery status TAKE 1 TABLET BY MOUTH EVERY DAY 30 tablet 5 03/10/20 25 Active simethicone (MYLICON) 80 mg chewable tablet CHEW & SWALLOW 1 TABLET EVERY 6 HOURS NEEDED FOR GAS 120 tablet 1 04/07/20 25 Active nutritional drink (Ensure High Protein) liquidIndications :Postsurgical malabsorption, not elsewhere classified TAKE 333 ML BY MOUTH TWICE DAILY 1200 mL 2 04/21/20 25 Active zinc gluconate 50 mg tabletIndications :Postoperative malabsorption TAKE 1 TABLET BY MOUTH DAILY 30 tablet 04/24/20 25 Active acetaminophen (TYLENOL) 500 mg tablet TAKE 2 TABLETS BY MOUTH EVERY 8 HOURS 180 tablet 1 05/05/20 25 Active acetaminophen (TYLENOL) 500 mg tablet TAKE 2 TABLETS BY MOUTH EVERY 8 HOURS 180 tablet 1 01/28/20 25 025 Discontinued nutritional drink (Ensure High Protein) liquidIndications :Postsurgical malabsorption, not elsewhere classified Take 333 mL by mouth 2 (two) times a day. 37922 mL 02/12/20 25 025 Discontinued zinc gluconate 50 mg tabletIndications :Postoperative malabsorption Take 1 tablet (50 mg total) by mouth 1 (one) time each day. 30 tablet 02/23/20 025 Discontinued Active Problems Problem Noted Date Diagnosed Date Anxiety 02/16/2025 Depression 02/16/2025 Severe obesity ([facility] V24, [facility] V28) 2024 Complex sleep apnea syndrome 02/16/2025 [...] Overview (02/16/2025): Compliant with BiPAP Followed by [facility] neurology and sleep clinic. Dr. 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 EEG's normal. Per neurology notes, possible dyskenisa s/t hx of antipsychotic medications which patient is no longer taking. Not currently taking any anti- seizure medications. No seizure episodes >2 months. Episodes triggered by emotional stress. Chronic post-traumatic stress disorder 0 Diabetes mellitus ([facility] V24, [facility] V28) Headache 05/25/2020 Essential hypertension 05/25/2020 Mixed hyperlipidemia 05/25/2020 Seizures ([facility] V24, [facility] V28) 05/25/2020 Coarse tremors 11/12/2019 Hypertensive disorder [...] Encounters Date Type Department Care Team Description 04/15/2025 Telephone [facility] [place] [address] [phone] Omer Beaver MD 02/16/2025 1:15 PM EDT Office Visit [facility] [place] [address] [address] Omer Beaver MD Postgastrectomy malabsorption (Primary Dx); Gastrointestinal hemorrhage, unspecified gastrointestinal hemorrhage type from Last 3 Months Surgical History Surgery Date Site/Laterality Comments LAPAROSCOPIC GASTRIC BANDING 2011 and 01/15/2014 PROCEDURE: LAP ADJUSTABLE GASTRIC BAND; COMMENT: first band slipped, was replaced Medical History Medical History Date Comments Anxiety DX:Anxiety Asthma DX:Asthma Depression DX:Depression Diabetes mellitus type 2, uncomplicated ([facility], [facility] V28) DX:Diabetes mellitus type 2, uncomplicated ([facility]) Hypertension DX:Hypertension LAP-BAND surgery status 12/02/2018 DX:LAP-B AND surgery status; COMMENT: x2 Morbid obesity with BMI of 5 0.0-59.9, adult ([facility] V24, [facility] V28) 12/02/2018 DX:Morbid obesity wit h BMI of 50.0-59.9, adult ([facility]) VELASQUEZ (obstructive sleep apnea) DX :VELASQUEZ (obstructive sleep apnea) Seizures ([facility] V24, [facility] V28) DX:Seizures ([facility]) Covid-19 DX:COVID-19; COM MENT: patient reports no [...] Care Team (Late st Contact Info) Description 07/06/2025 1:30 PM EST Office Visit Bariatric Surgery - [place] [address] [facility] [address] [place] [address] Omer Beaver MD [facility] [place] [address] Health Maintenance Due Date Last Done Comments [...] 03/31/2024 Social Influencers of Health Screening 03/31/2024 Depression Screening 09/02/2024 COVID-19 Vaccine ( season) 2025 Influenza Vaccine [...] ORDERABLES Final R esult Performing Organization Address City/[facility]/ZIP Co de Phone Number [facility] [address] [place] [address], [place] [phone] * (ABNORMAL) Zinc (02/16/2025 1:51 PM EDT) Pathologist [facility] Zinc 55(L) 60 - 130 ug/dL 02/19/2025 11:31 AM EDT [facility] Comment: Elevated results may be due to sample collected in a non-certified trace element-free tube. This test was developed and the performance characteristics determined by [facility]. It has not been cleared or approved by the FDA. The laboratory is regulated under CLIA as qualified to perform high-complexity testing. This test is used for patient testing purposes. It should not be regarded as investigational or for research. Test performed at [facility], [address], [place] [address] Piedad Chan MD, PhD - Dumb Waiter Operator Blood Venous blood specimen / Unknown Venipuncture / Unknown 02/16/2025 1:51 PM EDT 02/16/2025 1:51 PM EDT us Omer Beaver MD LAB BLOOD ORDERABLES Final R esult [facility] [address] [place] [address] * Vitamin D 25 hydroxy (02/16/2025 1:51 PM EDT) Vit D, 25-Hydroxy 52.8 30.0 - 80.0 ng/mL LAB CHEMISTRY METHOD 02/16/2025 7:[address] [facility] Blood Venous blood specimen / Unknown Venipuncture / Unknown 02/16/2025 1:51 PM EDT 02/16/2025 1:51 PM EDT us Omer Beaver MD LAB BLOOD ORDERABLES Final R esult Performing Organization Address City/[facility]/ZIP Co de Phone Number [facility] [address] [place] [address], [place] [phone] * (ABNORMAL) Folate (02/16/2025 1:51 PM EDT) Folate 19.0(H) 2.8 - 17.0 ng/ml LAB CHEMISTRY METHOD 02/16/2025 7:[address] [facility] Blood Venous blood specimen / Unknown Venipuncture / Unknown 02/16/2025 1:51 PM EDT 02/16/2025 1:51 PM EDT us Omer Beaver MD LAB BLOOD ORDERABLES Final R esult Performing Organization Address [facility] Co de Phone Number [facility] [address] [place] [address], [place] [phone] * Vitamin B12 (02/16/2025 1:51 PM EDT) Vitamin B-12 494 250 - 900 pcg/mL LAB CHEMISTRY METHOD 02/16/2025 7:[address] [facility] Blood Venous blood specimen / Unknown Venipuncture / Unknown 02/16/2025 1:51 PM EDT 02/16/2025 1:51 PM EDT us Omer Beaver MD LAB BLOOD ORDERABLES Final R esult [facility] [address] [place] [address], [place] [phone] * Calcium (02/16/2025 1:51 PM EDT) Calcium 9.6 8.5 - 10.5 mg/dL LAB CHEMISTRY METHOD 02/16/2025 7:[address] [facility] Blood Venous blood specimen / Unknown Venipuncture / Unknown 02/16/2025 1:51 PM EDT 02/16/2025 1:51 PM EDT Omer Beaver MD LAB BLOOD ORDERABLES Final R esult Performing Organization Address City/[facility]/ZIP Co de Phone Number [facility] [address] [place] [address], [place] [phone] * Albumin (02/16/2025 1:51 PM EDT) [facility] Albumin 3.6 3.2 - 5.0 g/dL LAB CHEMISTRY METHOD 02/16/2025 6:[address] [facility] Blood Venous blood specimen / Unknown Venipuncture / Unknown 02/16/2025 1:51 PM EDT 02/16/2025 1:51 PM EDT Omer Beaver MD LAB BLOOD ORDERABLES Final R esult [facility] [address] [place] [address], [place] [phone] from Last 3 Months Insurance MEDICAID - [place] Care Teams Shank Faker Relationship Specialty Start Date End Date [facility] [address] [place] [phone] PCP - General 12/18/23
--- OUTSIDE RECORDS SUMMARY | 2025-05-10 15:43 | XMS_ITS | Encounter Summary ---
Author Organization [employer] Address [address] [facility] [address] [place] [address] Care Team Providers Care Bail Agent Name Role Phone [place] [facility] Primary Care Provider [phone] Reason for Visit * Reason Onset Date Comments Nurse Triage 10/07/2023 Encounter Details Date Type Department Care Team ([facility] st Contact Info) Description 10/07/2023 Telephone [facility] [address] [place] [address] [facility] [address] [place] [address] Nurse Triage Social History Tobacco Use Types [...] PM EDT documented as of this encounter Functional Status * Over the past 2 weeks, how often have you been bothered by any of the following problems? Question Answer Date of Assessment Author Patient Health Questionnaire -2 Score 6 10/08/2023 10:37 AM Bethany Casillas MA * If you checked off any problems on this questionnaire so far, Question Answer Date of Assessment Author How difficult have these problems made it for you to do your work, take care of things at home, or get along with other people? Extremely difficult 10/08/2023 10:37 AM Bethany Casillas MA * Over the past 2 weeks, how often have you been bothered by any of the following problems? Question Answer Date of Assessment Author Little interest or pleasure in doing things Nearly every day 10/08/2023 10:37 AM Melissa Casillas MA Feeling down, depressed, or hopeless Nearly every day 10/08/2023 10:37 AM Melissa Casillas MA Trouble falling or staying asleep, or sleeping too much More than half the days 10/08/2023 10:37 AM Melissa Casillas MA Feeling tired or having little energy More than half the days 10/08/2023 10:37 AM Melissa Casillas MA Poor appetite or overeating Not at all 10/08/2023 10:37 AM Melissa Casillas MA Feeling bad about yourself - or that you are a failure or have let yourself or your family down Several days 10/08/2023 10:37 AM Melissa Casillas MA Trouble concentrating on things, such as reading the newspaper or watching television Not at all 10/08/2023 10:37 AM Melissa Casillas MA Moving or speaking so slowly that other people could have noticed? Or the opposite - being so fidgety or restless that you have been moving around a lot more than usual. Not at all 10/08/2023 10:37 AM Melissa Casillas MA Thoughts that you would be better off or hurting yourself in some way Several days 10/08/2023 10:37 AM Melissa Casillas MA Patient Health Questionnaire-9 Score 12 10/08/2023 10:37 AM Melissa Casillas MA documented as of this encounter Miscellaneous Notes * Telephone Encounter - Natividad Stinson RN - 10/07/2023 3:17 PM EST TC [place] to [facility], Ct [...] still having kidney pain . Patient speaks Rwandan. Advised triage nurse will call patient back. documented in this encounter Plan of Treatment Upcoming Encounters Date Type Department Care Team (Late st Contact Info) Description 05/18/2025 1:30 PM EDT Medication Management [facility] [address] [place] [phone] Isaiah Contreras, Lenore [address] [place] [address] 06/07/2025 1:00 PM EDT Clinical Support [facility] [address] [place] [phone] Frida Knapp RN documented as of this encounter Visit Diagnoses Not on filedocumented in this encounter Additional Health Concerns Assessment Noted Time PHQ-9 Depression Total Score: 0 10/03/19 24 10:12 AM EST documented as of this encounter Care Teams Bail Agent Relationship Specialty Start Date End Date Ginger Perez FNP [address] [place] [phone] PCP - General Family Medicine 08/13/22 [facility] Home Care 11/01/22 documented as of this encounter
--- OUTSIDE RECORDS SUMMARY | 2025-05-10 15:43 | XMS_ITS | Encounter Summary ---
Author Organization [employer] Address [address] [facility] [address] [address] Care Team Providers Care Rental Salesperson Name Role Phone [place] [facility] Primary Care Provider [phone] Encounter Details Date Type Department Care Team (Late Contact Info) Description 08/22/2022 Refill [facility] [address] [place], [place] [phone] [place] [facility] [address] [place] [address] Muscle spasm Social History Tobacco Use Types [...] Description 05/18/2025 1:30 PM EDT Medication Management [facility] [address] [place], [place] [phone] Isaiah Contreras, PharmD 230 [facility] [place] [address] 06/07/2025 1:00 PM EDT Clinical Support [facility] [address] [place] [address] Frida Knapp, RN documented as of this encounter Visit Diagnoses Diagnosis Muscle spasm Spasm of muscle documented in this encounter Additional Health Concerns Assessment Noted Time PHQ-9 Depression Total Score: 9 08/21/20 22 10:14 AM EST documented as of this encounter Care Teams Rental Salesperson Relationship Specialty Start Date End Date Ginger Perez FNP [address] [place] [address] PCP - General Family Medicine 08/13/22 [facility] Home Care 11/01/22 documented as of this encounter
--- OUTSIDE RECORDS SUMMARY | 2025-05-10 15:43 | XMS_ITS | Encounter Summary ---
Author Organization [employer] Address [address] [facility] [address] [place] [address] Care Team Providers Care Electrical Systems Designer Name Role Phone [facility] Primary Care Provider [phone] Reason for Visit * Reason Comments Med Refill Encounter Details Date Type Department Care Team ([facility] st Contact Info) Description 05/22/2024 Refill [facility] [address] [place], [place] [phone] [facility] [address] [place] [address] Low back pain at multiple sites Social [...] Description 05/18/2025 1:30 PM EDT Medication Management [address] [address] Isaiah Contreras, Ana PaulaD [address] [place] [address] 06/07/2025 1:00 PM EDT Clinical Support [address] [phone] Frida Knapp, RN documented as of this encounter Visit Diagnoses Diagnosis Low back pain at multiple sites documented in this encounter Additional Health Concerns Assessment Noted Time PHQ-9 Depression Total Score: 13 024 11:27 AM EDT documented as of this encounter Care Teams Electrical Systems Designer Relationship Specialty Start Date End Date Ginger Perez FNP [address] [place] [address] PCP - General Family Medicine 08/13/22 [facility] 11/01/22 documented as of this encounter
--- OUTSIDE RECORDS SUMMARY | 2025-05-10 15:43 | XMS_ITS | Encounter Summary ---
Author Organization [employer] Address 75 [facility] 7t [place] [address] Care Team Providers Care Wood Heel Fitter Machine Name Role Phone Ana [facility] Primary Care Provider [phone] Reason for Visit * Reason Comments Med Refill Encounter Details Date Type Department Care Team ([facility] st Contact Info) Description 05/11/2024 Refill [facility] 230 [place] [address] Roma Man MD 230 [place] [address] Onychomycosis Social History Tobacco Use Types Packs/Day [...] Description 05/18/2025 1:30 PM EDT Medication Management [address] [address] Isaiah Contreras, Ana PaulaD [address] [place] [address] 06/07/2025 1:00 PM EDT Clinical Support [address] [address] Frida Knapp, OZZY documented as of this encounter Visit Diagnoses Diagnosis Onychomycosis Dermatophytosis of nail documented in this encounter Additional Health Concerns Assessment Noted Time PHQ-9 Depression Total Score: 13 024 11:27 AM EDT documented as of this encounter Care Teams Wood Heel Fitter Machine Relationship Specialty Start Date End Date Ginger Perez FNP [address] [place] [address] PCP - General Family Medicine 08/13/22 [facility] Home Care 11/01/22 documented as of this encounter
--- OUTSIDE RECORDS SUMMARY | 2025-05-10 15:43 | XMS_ITS | Encounter Summary ---
Author Organization [employer] Address 75 [facility] 7t [place] [address] Care Team Providers Care Manager Organizational Name Role Phone Ana [facility] Primary Care Provider [phone] Reason for Visit * Reason Comments Med Refill Encounter Details Date Type Department Care Team ([facility] st Contact Info) Description 05/22/2024 Refill [facility] 230 [place] [address] Roma Man MD 230 [place] [address] Onychomycosis Social History Tobacco Use Types Packs/Day [...] Description 05/18/2025 1:30 PM EDT Medication Management [address] [address] Isaiah Contreras, Ana PaulaD [address] [place] [address] 06/07/2025 1:00 PM EDT Clinical Support [address] [address] Frida Knapp, OZZY documented as of this encounter Visit Diagnoses Diagnosis Onychomycosis Dermatophytosis of nail documented in this encounter Additional Health Concerns Assessment Noted Time PHQ-9 Depression Total Score: 13 024 11:27 AM EDT documented as of this encounter Care Teams Manager Organizational Relationship Specialty Start Date End Date Ginger Perez FNP [address] [place] [address] PCP - General Family Medicine 08/13/22 [facility] [place] Care 11/01/22 documented as of this encounter
--- OUTSIDE RECORDS SUMMARY | 2025-05-10 15:43 | XMS_ITS | Encounter Summary ---
Author Organization [employer] Address 75 [facility] 7[place] [address] Care Team Providers Care Coke Oven Mason Name Role Phone [facility] Primary Care Provider [phone] Reason for Visit * Reason Onset Date Comments Telephone call 03/12/2025 Encounter Details Date Type Department Care Team ([facility] st Contact Info) Description 03/12/[address] [facility] 230 [place] [address] [facility] 230 [place] [address] Telephone call Social History Tobacco Use Types Packs/Day Years [...] Telephone Encounter - Ada George [place] - 03/18/2025 11:[address] to pt regarding message below. Pt does not have [employer]. Pt would like scrip for Forearm crutches and bilateral knee brace. Please advice on plan, pt has appt with you on 03/22> * Telephone Encounter - Melissa Arellano - 03/12/2025 3:00 PM EDT Incoming call from [employer] stating patient is requesting adult diapers size Large, bilateral forearm crutches and bilateral knee braces. Patients call back number is [phone]. Maricruz Schroeder documented in this encounter Plan of Treatment Upcoming Encounters Date Type Department Care Team (Late st Contact Info) Description 05/18/2025 1:30 PM EDT Medication Management [address] [address] Isaiah Contreras, PharmD 230 [place] [address] 06/07/2025 1:00 PM EDT Clinical Support [facility] 230 [place] [address] Frida Knapp, OZZY documented as of this encounter Visit Diagnoses Not on filedocumented in this encounter Additional Health Concerns Assessment Noted Time PHQ-9 Depression Total Score: 13 024 11:27 AM EDT documented as of this encounter Care Teams Coke Oven Mason Relationship Specialty Start Date End Date [place] [address] PCP - General Family Medicine 08/13/22 [facility] [place] 11/01/22 documented as of this encounter
== END 2025-05-10 14:51 | disposition home or self-care (01) ==
LOC: HO.HPODS 13:26
PROVIDERS: PCP Registered Nurse; Visit Provider Student in an Organized Health Care Education/Training Program
DX: S99.922A Unspecified injury of left foot, initial encounter (principal); M79.675 Pain in left toe(s); L60.0 Ingrowing nail; L03.032 Cellulitis of left toe; L60.3 Nail dystrophy
CPT/HCPCS: 11730; 99204

== ENCOUNTER → 2025-05-10 13:26 | Outpatient (BNVA) | payer MEDICAID, SELFPAY | PROVIDERS: PCP Registered Nurse; Visit Provider Student in an Organized Health Care Education/Training Program | DX: L60.0 Ingrowing nail (principal); L60.3 Nail dystrophy; L03.032 Cellulitis of left toe; S99.922A Unspecified injury of left foot, initial encounter; M79.675 Pain in left toe(s) | CPT/HCPCS: 11730; 99202; J2003 ==

== ENCOUNTER 2025-05-13 13:39 | Outpatient (RCR) | payer MEDICAID, SELFPAY ==
--- NOTE | 2025-07-02 08:56 | MHC.PT.DC ---
[facility] [place] Office [place] Office [place] Office [address] Naresh Glass [address] [phone] F: [phone] F: [phone] F: [phone] F: [phone] Physical Therapy Discharge Report Diagnosis: GAIT INSTABILITY (KP) Date of Surgery: NA Date of Evaluation: 04/23/25 Date of Discharge: 05/13/25 Treatments to Date: 2 Cancellations to Date: 2 No Shows to Date: 2 Discharge Status: Patient Elected to Stop Discharge Summary: At last attended treatment, therapist documents the following Hilda arrived today stating she called her doctor regarding the fall but she has not heard back from them. She also stated that she recently had her toe nail clipped and her doctor asked her to take it easy. She however was here for PT and wanted to exercise. I started her with mat exercises. After doing her first exercise for 5 minutes she got up from the mat very upset, grabbed her cane, pushed the table and walked out. She did not give any explanation for her sudden departure from the treatment. She then no showed for her last scheduled visit and is DCed for poor compliance and current status is unknown. Electronically signed by: Gracia Nino PT DPT Please sign and return to therapist. Thank you for your referral.
== END 2025-07-02 08:56 | disposition home or self-care (01) ==
LOC: HO.PT 13:39
PROVIDERS: PCP Registered Nurse; Visit Provider Registered Nurse
DX: R26.81 Unsteadiness on feet (principal)
CPT/HCPCS: 97110; 97162; 97163; 97535

== ENCOUNTER 2025-05-19 14:03 | Outpatient (REF) | payer MEDICAID, SELFPAY ==
--- NOTE | ~2025-05-19 | XR_ITS ---
EXAMINATION: XR FOOT 3 OR MORE VIEWS LEFT HISTORY: M79.675 - Pain in left toe(s) COMPARISON: There are no prior studies available for comparison. FINDINGS: Three weight bearing views of the left foot are submitted. Osseous mineralization is normal. There is no fracture or dislocation. There is mild narrowing of the DIP joints. There are calcaneal spurs at the plantar aspect and at the insertion of the Achilles tendon. The soft tissues are unremarkable. XR/XR foot LT min 3V IMPRESSION: Mild narrowing of the DIP joints. Calcaneal spurs as described. Electronically signed by: Kingston Chavis MD 05/19/2025 02:36 PM EDT
--- OUTSIDE RECORDS SUMMARY | 2025-05-19 17:48 | XMS_ITS | Encounter Summary ---
Author Organization [employer] Address 75 [facility] 7t [place] [address] Care Team Providers Care Analytical Laboratory Technician Name Role Phone [facility] Primary Care Provider Reason for Visit * Reason Onset Date Comments Medication Question 11/12/2024 Med Refill 11/12/2024 Encounter Details Date Type Department Care Team ([facility] st Contact Info) Description 11/12/2024 Telephone [facility] 230 [place] [address] [facility] 230 [place] [address] Medication Question; Med Refill Social History Tobacco [...] from pt regarding Lidocaid Patch and Clonazepam. Airline Pilot Flight Instructor advised pt med refill request was sent yesterday. documented in this encounter Plan of Treatment Upcoming Encounters Date Type Department Care Team (Late st Contact Info) Description 06/07/2025 1:00 PM EDT Clinical Support [facility] [address] [place] [address] Frida Knapp RN 07/12/2025 2:00 PM EST Office Visit [facility] [address] [place] [phone] Ginger Perez FNP 230 [place] [address] documented as of this encounter Visit Diagnoses Not on filedocumented in this encounter Additional Health Concerns Assessment Noted Time PHQ-9 Depression Total Score: 13 024 11:27 AM EDT documented as of this encounter Care Teams Analytical Laboratory Technician Relationship Specialty Start Date End Date [place] GERALD Miles [address] [place] [address] PCP - General Family Medicine 08/13/22 [facility] Home Care 11/01/22 documented as of this encounter
--- OUTSIDE RECORDS SUMMARY | 2025-05-19 17:48 | XMS_ITS | Encounter Summary ---
Author Organization [employer] Address 75 [facility] 7[place] [address] Care Team Providers Care Assistant Professor Of English Name Role Phone [facility] Primary Care Provider [phone] Reason for Visit * Reason Onset Date Comments Durable Medical Equipment 11/12/2024 Encounter Details Date Type Department Care Team ([facility] st Contact Info) Description 11/12/2024 Telephone [facility] 230 [place] [address] [facility] 230 [place] [address] Durable Medical Equipment Social History Tobacco Use [...] other 2 boxes that was never received. [phone] * Telephone Encounter - Jazzmine Dukes - 11/12/2024 2:57 PM EDT Tc from pt stating received two boxes of vanilla ensure and normally she received four boxes. documented in this encounter Plan of Treatment Upcoming Encounters Date Type Department Care Team (Late st Contact Info) Description 06/07/2025 1:00 PM EDT Clinical Support [facility] [address] [place] [address] Frida Knapp RN 07/12/2025 2:00 PM EST Office Visit [facility] [address] [place] [address] Ginger Perez FNP 230 [place] [address] documented as of this encounter Visit Diagnoses Not on filedocumented in this encounter Additional Health Concerns Assessment Noted Time PHQ-9 Depression Total Score: 13 024 11:27 AM EDT documented as of this encounter Care Teams Assistant Professor Of English Relationship Specialty Start Date End Date Ginger Perez FNP 230 [place] [address] PCP - General Family Medicine 08/13/22 [facility] [place] Home Care 11/01/22 documented as of this encounter
--- OUTSIDE RECORDS SUMMARY | 2025-05-19 17:49 | XMS_ITS | Encounter Summary ---
Author Organization [employer] Address 75 [facility] 7t [place] [address] Care Team Providers Care Statistics Tutor Name Role Phone Ana [facility] Primary Care Provider [phone] Reason for Visit * Reason Comments Med Refill Encounter Details Date Type Department Care Team ([facility] st Contact Info) Description 05/11/2024 Refill [facility] 230 [place] [address] Roma Man MD 230 [place] [address] Onychomycosis Social History Tobacco Use Types Packs/Day [...] Description 06/07/2025 1:00 PM EDT Clinical Support [facility]ICINE [address] [place] [address] Frida Knapp RN 07/12/2025 2:00 PM EST Office Visit [facility]INE [address] [place] [address] AnaGinger canales [address] [address] documented as of this encounter Visit Diagnoses Diagnosis Onychomycosis Dermatophytosis of nail documented in this encounter Additional Health Concerns Assessment Noted Time PHQ-9 Depression Total Score: 13 024 11:27 AM EDT documented as of this encounter Care Teams Statistics Tutor Relationship Specialty Start Date End Date Ginger Perez FNP [address] [place] [address] PCP - General Family Medicine 08/13/22 [facility] [place] [place] Care 11/01/22 documented as of this encounter
--- OUTSIDE RECORDS SUMMARY | 2025-05-19 17:49 | XMS_ITS | Encounter Summary ---
Author Organization [email or web address] Address 75 [facility] 7[place] [address] Care Team Providers Care Armor Reconnaissance Specialist Name Role Phone [facility] Primary Care Provider [phone] Reason for Visit * Reason Comments Med Refill Encounter Details Date Type Department Care Team ([facility] st Contact Info) Description 05/12/2025 Refill [facility] [address] [place], [place] [phone] [facility] [address] [place] [address] Social History Tobacco Use Types Packs/Day Years [...] Description 06/07/2025 1:00 PM EDT Clinical Support [address] [address] Frida Knapp RN 07/12/2025 2:00 PM EST Office Visit [address] [address] Ginger Perez FNP [address] [place] [address] documented as of this encounter Visit Diagnoses Not on filedocumented in this encounter Additional Health Concerns Assessment Noted Time PHQ-9 Depression Total Score: 13 024 11:27 AM EDT documented as of this encounter Care Teams Armor Reconnaissance Specialist Relationship Specialty Start Date End Date Ginger Perez FNP [address] [place] [address] PCP - General Family Medicine 08/13/22 [facility] Home Care 11/01/22 documented as of this encounter
--- OUTSIDE RECORDS SUMMARY | 2025-05-19 17:49 | XMS_ITS | Encounter Summary ---
Demographics Address [address] [facility] [address] [place] [address] Mobile Phone Work Phone Home Phone Email Address Preferred Language en Marital Status Single Bahai Affiliation Unknown Race Other Race Ethnic Group Unknown Author Organization [employer] Address 75 [facility] 7t [place] [address] Care Team Providers Care Sales Warehouse Driver Name Role Phone Ginger Perez SAP ADMINISTRATOR Primary Care Provider [phone] Encounter Details Date Type Department Care Team (Late st Contact Info) Description 05/19/2025 Orders Only [facility] External Provider, [facility] Social History Tobacco Use Types Packs/Day Years [...] Description 06/07/2025 1:00 PM EDT Clinical Support [facility] [address] [place] [address] Frida Knapp RN 07/12/2025 2:00 PM EST Office Visit [facility] [address] [place] [address] Ginger Perez FNP [address] [place] [address] documented as of this encounter Procedures Procedure Name Priority Date/Time Associated Diagnosis Comments XR FOOT 3+ VIEWS LEFT Routine 05/19/2025 2:24 PM EDT documented in this encounter Results * XR Foot 3+ Views Left (05/19/2025 2:24 PM EDT) Anatomical Region Laterality Modality Lower Extremities, Foot Left [facility] 05/19/2025 2:24 PM EDT Narrative 05/19/2025 2:40 PM EDT [address] [address] XRay Report Signed Patient: Hilda Mcmahan MR#: [id number] : 1965 Acct:[id number] Age/Sex: 59 / F ADM Date: 05/19/25 Loc: DAO Attending Dr: Nichelle Catalan DPM Ordering Physician: Nichelle Catalan DPM Date of Service: 05/19/25 Procedure(s): XR foot LT min 3V Accession Number(s): [id number] cc: Nichelle Catalan DPM; [facility] Reason for Exam: M79.675 - Pain in left toe(s) EXAMINATION: XR FOOT 3 OR MORE VIEWS LEFT HISTORY: M79.675 - Pain in left toe(s) COMPARISON: There are no prior studies available for comparison. FINDINGS: Three weight bearing views of the left foot are submitted. Osseous mineralization is normal. There is no fracture or dislocation. There is mild narrowing of the DIP joints. There are calcaneal spurs at the plantar aspect and at the insertion of the Achilles tendon. The soft tissues are unremarkable. XR/XR foot LT min 3V IMPRESSION: Mild narrowing of the DIP joints. Calcaneal spurs as described. Electronically signed by: Kingston Chavis MD 05/19/2025 02:36 PM EDT Dictated By: Kingston Chavis MD Signed By: <Electronically signed by Kingston Chavis MD in OV> 05/19/25 1436 DD/ 1424 TD/TT: 05/19/25 1420 Box Folding Machine Operator: Procedure Note Donotuseinterpreter, Image - 05/19/[address] [address] XRay Report Signed Patient: Hilda McmahanMR#: [id number] : 1965Acct:[id number] Age/Sex: 59 / FADM Date: 05/19/25 Loc: DAO Attending Dr: Nichelle Catalan DPM Ordering Physician: Nichelle Catalan DPM Date of Service: 05/19/25 Procedure(s): XR foot LT min 3V Accession Number(s): [id number] cc: Nichelle Catalan DPM; AnaGinger [facility] Reason for Exam: M79.675 - Pain in left toe(s) EXAMINATION: XR FOOT 3 OR MORE VIEWS LEFT HISTORY: M79.675 - Pain in left toe(s) COMPARISON: There are no prior studies available for comparison. FINDINGS: Three weight bearing views of the left foot are submitted. Osseous mineralization is normal. There is no fracture or dislocation. There is mild narrowing of the DIP joints. There are calcaneal spurs at the plantar aspect and at the insertion of the Achilles tendon. The soft tissues are unremarkable. XR/XR foot LT min 3V IMPRESSION: Mild narrowing of the DIP joints. Calcaneal spurs as described. Electronically signed by: Kingston Chavis MD 05/19/2025 02:36 PM EDT RP Dictated By: Kingston Chavis MD Signed By: <Electronically signed by Kingston Chavis MD in OV> 05/19/25 1436 DD/ 1424 TD/TT: 05/19/25 1420 Box Folding Machine Operator: [facility] External Provider IMG XR PROCEDURES Edited Result - Final documented in this encounter Visit Diagnoses Not on filedocumented in this encounter Additional Health Concerns Assessment Noted Time PHQ-9 Depression Total Score: 13 03/16/ 024 11:27 AM EDT documented as of this encounter Care Teams Sales Warehouse Driver Relationship Specialty Start Date End Date Ginger Perez FNP [address] [place] [address] PCP - General Family Medicine 08/13/22 [facility] [place] Home Care 11/01/22 documented as of this encounter
--- OUTSIDE RECORDS SUMMARY | 2025-05-19 17:49 | XMS_ITS | Encounter Summary ---
Author Organization [employer] Address 75 [facility] 7t [place] [address] Care Team Providers Care Muck Farmer Name Role Phone [facility] Primary Care Provider [phone] Reason for Visit * Reason Comments Med Refill Encounter Details Date Type Department Care Team ([facility] st Contact Info) Description 05/17/2025 Refill [facility] [address] [place], [place] [phone] [facility] [address] [place] [address] Social History Tobacco Use Types Packs/Day Years [...] Description 06/07/2025 1:00 PM EDT Clinical Support [address] [address] Frida Knapp RN 07/12/2025 2:00 PM EST Office Visit [address] [address] Ginger Perez FNP [address] [place] [address] documented as of this encounter Visit Diagnoses Not on filedocumented in this encounter Additional Health Concerns Assessment Noted Time PHQ-9 Depression Total Score: 13 024 11:27 AM EDT documented as of this encounter Care Teams Muck Farmer Relationship Specialty Start Date End Date Ginger Perez FNP [address] [place] [address] PCP - General Family Medicine 08/13/22 [facility] [place] Care 11/01/22 documented as of this encounter
--- OUTSIDE RECORDS SUMMARY | 2025-05-19 17:49 | XMS_ITS | Encounter Summary ---
Author Organization [employer] Address 75 [facility] 7t [place] [address] Care Team Providers Care Binding Dyer Name Role Phone [facility] Primary Care Provider [phone] Reason for Visit * Reason Comments Med Refill Encounter Details Date Type Department Care Team ([facility] st Contact Info) Description 11/22/2023 Refill [facility] 230 [place], [place] [phone] [facility] 230 [place] [address] Type 2 diabetes mellitus with hyperglycemia, with long-term current use of insulin ([facility]) Social History Tobacco Use Types Packs/Day [...] Description 06/07/2025 1:00 PM EDT Clinical Support [facility] [address] [place] [address] Frida Knapp RN 07/12/2025 2:00 PM EST Office Visit [facility] [address] [place] [address] [facility] 230 [place] [address] documented as of this encounter Visit Diagnoses Diagnosis Type 2 diabetes mellitus with hyperglycemia, with long-term current use of insulin ([facility]) documented in this encounter Additional Health Concerns Assessment Noted Time PHQ-9 Depression Total Score: 0 11/13/19 24 3:08 PM EDT documented as of this encounter Care Teams Binding Dyer Relationship Specialty Start Date End Date Ginger Perez [facility] [address] [place] [address] PCP - General Family Medicine 08/13/22 [facility] [place] 11/01/22 documented as of this encounter
--- OUTSIDE RECORDS SUMMARY | 2025-05-19 17:49 | XMS_ITS | Encounter Summary ---
Author Organization [employer] Address 75 [facility] 7t [place] [address] Care Team Providers Care Ballpoint Pens Assembler Name Role Phone Ana [facility] Primary Care Provider [phone] Encounter Details Date Type Department Care Team ([facility] st Contact Info) Description 12/20/2022 Telephone [facility] 230 [place], [place] [phone] [facility] 230 [place], [place] [phone] Social History Tobacco Use Types Packs/Day Years [...] - 12/20/2022 4:16 PM EDT Tc from [facility] requesting status on orders that needed to be sign by PCP on oct [phone] documented in this encounter Plan of Treatment Upcoming Encounters Date Type Department Care Team (Late st Contact Info) Description 06/07/2025 1:00 PM EDT Clinical Support [address] [address] Frida Knapp RN 07/12/2025 2:00 PM EST Office Visit [address] [address] Ginger Perez FNP 230 [place] [address] documented as of this encounter Visit Diagnoses Not on filedocumented in this encounter Additional Health Concerns Assessment Noted Time PHQ-9 Depression Total Score: 0 12/12/19 3:58 PM EDT documented as of this encounter Care Teams Ballpoint Pens Assembler Relationship Specialty Start Date End Date Ginger Perez FNP [address] [place] [address] PCP - General Family Medicine 08/13/22 [facility] [place] 11/01/22 documented as of this encounter
--- OUTSIDE RECORDS SUMMARY | 2025-05-19 17:49 | XMS_ITS | Encounter Summary ---
Author Organization [employer] Address 75 [facility] 7[address] [place] [address] Care Team Providers Care Nocturnist Name Role Phone AnaGinger canales [facility] Primary Care Provider [phone] Encounter Details Date Type Department Care Team ([facility] st Contact Info) Description 04/19/2025 Telephone [facility] MED[facility] 230 [place], [place] [phone] [facility] 230 [place], [place] [phone] Social History Tobacco Use Types Packs/Day Years [...] 1:00 PM EDT Clinical Support [facility] MEDICINE [address] [place] [address] Frida Knapp RN 07/12/2025 2:00 PM EST Office Visit [facility] [address] [place] [address] Ginger Perez FNP 230 [place] [address] documented as of this encounter Visit Diagnoses Not on filedocumented in this encounter Additional Health Concerns Assessment Noted Time PHQ-9 Depression Total Score: 13 024 11:27 AM EDT documented as of this encounter Care Teams Nocturnist Relationship Specialty Start Date End Date Ginger Perez FNP [address] [place] [address] PCP - General Family Medicine 08/13/22 [facility] Home Care 11/01/22 documented as of this encounter
--- OUTSIDE RECORDS SUMMARY | 2025-05-19 17:49 | XMS_ITS | Encounter Summary ---
Author Organization [employer] Address 75 [facility] 7[address] [place] [address] Care Team Providers Care Bodybuilder Name Role Phone [facility] Primary Care Provider [phone] Reason for Visit * Reason Comments Med Refill Encounter Details Date Type Department Care Team (Late st Contact Info) Description 02/04/2025 Refill [facility] 230 [place], [place] [phone] [facility] 230 [place] [address] Type 2 diabetes mellitus with chronic kidney [...] Description 06/07/2025 1:00 PM EDT Clinical Support [facility] MED[facility] [address] [place] [address] Frida Knapp RN 07/12/2025 2:00 PM EST Office Visit [facility] [address] [place] [address] Ginger Perez FNP [address] [place] [address] documented as of this encounter Visit Diagnoses Diagnosis Type 2 diabetes mellitus with chronic kidney disease, with long-term current use of insulin, unspecified CKD stage (CMS/HCC) documented in this encounter Additional Health Concerns Assessment Noted Time PHQ-9 Depression Total Score: 13 024 11:27 AM EDT documented as of this encounter Care Teams Bodybuilder Relationship Specialty Start Date End Date Ginger Perez FNP [address] [place] [address] PCP - General Family Medicine 08/13/22 [facility] Home Care 11/01/22 documented as of this encounter
--- OUTSIDE RECORDS SUMMARY | 2025-05-19 17:49 | XMS_ITS | Encounter Summary ---
Author Organization [employer] Address [address] [facility] 7t [place] [address] Care Team Providers Care Retail Worker Name Role Phone Ana [facility] Primary Care Provider [phone] Encounter Details Date Type Department Care Team ([facility] st Contact Info) Description 12/30/2024 Orders Only [facility] [address] [place], [place] [phone] Mary Gu Social History Tobacco Use Types [...] Description 06/07/2025 1:00 PM EDT Clinical Support [facility] [address] [place] [address] Frida Knapp RN 07/12/2025 2:00 PM EST Office Visit [facility] [address] [place] [address] Ginger Perez FNP [address] [place] [address] documented as of this encounter Procedures Procedure [...] as of this encounter Care Teams Retail Worker Relationship Specialty Start Date End Date Ginger Perez FNP [address] [place] [address] PCP - General Family Medicine 08/13/22 [facility] Home Care 11/01/22 documented as of this encounter
--- OUTSIDE RECORDS SUMMARY | 2025-05-19 17:49 | XMS_ITS | Encounter Summary ---
Author Organization [employer] Address [address] [facility] 7[address] [place] [address] Care Team Providers Care Cake Puller Name Role Phone [facility] Primary Care Provider [phone] Reason for Visit * Reason Comments Med Refill Encounter Details Date Type Department Care Team ([facility] st Contact Info) Description 05/18/2025 Refill [facility] 230 [place], [place] [phone] [facility] 230 [place] [address] Mixed anxiety and depressive disorder Social History [...] Description 06/07/2025 1:00 PM EDT Clinical Support [facility] [address] [place] [address] Frida Knapp RN 07/12/2025 2:00 PM EST Office Visit [address] [address] Ginger Perez FNP [address] [place] [address] documented as of this encounter Visit Diagnoses Diagnosis Mixed anxiety and depressive disorder Dysthymic disorder documented in this encounter Additional Health Concerns Assessment Noted Time PHQ-9 Depression Total Score: 13 024 11:27 AM EDT documented as of this encounter Care Teams Cake Puller Relationship Specialty Start Date End Date Ginger Perez FNP [address] [place] [address] PCP - General Family Medicine 08/13/22 [facility] [place] Care 11/01/22 documented as of this encounter
--- OUTSIDE RECORDS SUMMARY | 2025-05-19 17:49 | XMS_ITS | Encounter Summary ---
Author Organization [email or web address] Address [address] [facility] 7[address] [place] [address] Care Team Providers Care Harness Racing Handicapper Name Role Phone [facility] Primary Care Provider [phone] Reason for Visit * Reason Onset Date Comments Durable Medical Equipment 12/18/2022 Encounter Details Date Type Department Care Team ([facility] st Contact Info) Description 12/18/2022 Telephone [facility] 230 [place] [address] [facility] 230 [place] [address] Durable Medical Equipment Social History Tobacco Use [...] Thank you. * Telephone Encounter - Brenda Prachi - 12/18/2022 2:22 PM EDT Tc from sarah from [facility] requesting a new nebulizer machine . States pt informed old one stopped working . documented in this encounter Plan of Treatment Upcoming Encounters Date Type Department Care Team (Late st Contact Info) Description 06/07/2025 1:00 PM EDT Clinical Support [address] [address] Frida Knapp RN 07/12/2025 2:00 PM EST Office Visit [address] [address] Ginger Perez FNP 230 [place] [address] documented as of this encounter Visit Diagnoses Not on filedocumented in this encounter Additional Health Concerns Assessment Noted Time PHQ-9 Depression Total Score: 0 12/12/19 23 3:58 PM EDT documented as of this encounter Care Teams Harness Racing Handicapper Relationship Specialty Start Date End Date Ginger Perez FNP [address] [place] [address] PCP - General Family Medicine 08/13/22 [facility] Home Care 11/01/22 documented as of this encounter
--- OUTSIDE RECORDS SUMMARY | 2025-05-19 17:49 | XMS_ITS | Encounter Summary ---
Author Organization [employer] Address [address] [facility] 7[place] [address] Care Team Providers Care Mosaic Tile Maker Name Role Phone [facility] Primary Care Provider [phone] Reason for Visit * Reason Onset Date Comments Nurse Triage 08/18/2024 Encounter Details Date Type Department Care Team ([facility] st Contact Info) Description 08/18/2024 Telephone [facility] 230 [place] [address] [facility] 230 [place] [address] Nurse Triage Social History Tobacco Use Types [...] AM EST Tc from pt returning call [phone] * Telephone Encounter - Francie Au RN - 08/18/2024 11:47 AM EST Triage call Pt reports abnormal vaginal bleeding which has been occurring for last several months. Pt reports spotting started yesterday and usually this is gone in a day. This time it is the second day of this spotting and drainage is black in color. Pt denies any other symptoms. Pt reports VETERINARY PRACTICE MANAGER advised to call to see provider. ASK [...] 1:00 PM EDT Clinical Support [facility] [address] [place] [address] Frida Knapp RN 07/12/2025 2:00 PM EST Office Visit [facility] [address] [place] [address] Ginger Perez FNP 230 [place] [address] documented as of this encounter Visit Diagnoses Not on filedocumented in this encounter Additional Health Concerns Assessment Noted Time PHQ-9 Depression Total Score: 13 024 11:27 AM EDT documented as of this encounter Care Teams Mosaic Tile Maker Relationship Specialty Start Date End Date Ginger Perez FNP [address] [place] [address] PCP - General Family Medicine 08/13/22 [facility] Home Care 11/01/22 documented as of this encounter
--- OUTSIDE RECORDS SUMMARY | 2025-05-19 17:49 | XMS_ITS | Encounter Summary ---
Author Organization [employer] Address [address] [facility] 7[address] [place] [address] Care Team Providers Care Print Line Feeder Name Role Phone [facility] Primary Care Provider [phone] Encounter Details Date Type Department Care Team (Late Contact Info) Description 08/22/2022 Refill [facility] 230 [place], [place] [phone] [facility] 230 [place] [address] Muscle spasm Social History Tobacco Use Types [...] Encounters Date Type Department Care Team (Late Contact Info) Description 06/07/2025 1:00 PM EDT Clinical Support [facility] MEDICINE [address] [place] [address] Frida Knapp, RN 07/12/2025 2:00 PM EST Office Visit [facility] [address] [facility] [place] [address] Ginger Perez FNP [address] [place] [address] documented as of this encounter Visit Diagnoses Diagnosis Muscle spasm Spasm of muscle documented in this encounter Additional Health Concerns Assessment Noted Time PHQ-9 Depression Total Score: 9 08/21/20 22 10:14 AM EST documented as of this encounter Care Teams Print Line Feeder Relationship Specialty Start Date End Date Ginger Perez FNP [address] [facility] [place] [address] PCP - General Family Medicine 08/13/22 [facility] Home Care 11/01/22 documented as of this encounter
--- OUTSIDE RECORDS SUMMARY | 2025-05-19 17:49 | XMS_ITS | Encounter Summary ---
Author Organization [employer] Address [address] [facility] 7[address] [place] [address] Care Team Providers Care Watch Crystal Grinder Name Role Phone [facility] Primary Care Provider [phone] Reason for Visit * Reason Onset Date Comments Call Back Request 10/09/2024 Encounter Details Date Type Department Care Team ([facility] st Contact Info) Description 10/09/2024 Telephone [facility] 230 [place] [address] [facility] 230 [place] [address] Call Back Request Social History Tobacco Use [...] the past 12 months, has t he [employer], gas, oil or water [employer] threatened to shut off services in your [...] Lillian Dukes - 10/09/2024 2:48 PM EST Adalid Tong with [facility] to clarify if its necessary to do another ultrasound (transvaginal) because the pt refuses to perform it. Any questions contact: [phone] documented in this encounter Plan of Treatment Upcoming Encounters Date Type Department Care Team (Late st Contact Info) Description 06/07/2025 1:00 PM EDT Clinical Support [address] [address] Frida Knapp RN 07/12/2025 2:00 PM EST Office Visit [address] [address] Ginger Perez FNP 230 [place] [address] documented as of this encounter Visit Diagnoses Not on filedocumented in this encounter Additional Health Concerns Assessment Noted Time PHQ-9 Depression Total Score: 13 024 11:27 AM EDT documented as of this encounter Care Teams Watch Crystal Grinder Relationship Specialty Start Date End Date Ginger Perez FNP [address] [place] [address] PCP - General Family Medicine 08/13/22 [facility] [place] 11/[place]/22 documented as of this encounter
--- OUTSIDE RECORDS SUMMARY | 2025-05-19 17:49 | XMS_ITS | Encounter Summary ---
Author Organization [employer] Address [address] [facility] 7t [place] [address] Care Team Providers Care Player Manager Name Role Phone Ana [facility] Primary Care Provider [phone] Reason for Visit * Reason Comments Med Refill Encounter Details Date Type Department Care Team ([facility] st Contact Info) Description 05/22/2024 Refill [facility] 230 [place] [address] Roma Man MD 230 [place] [address] Onychomycosis Social History Tobacco Use Types Packs/Day [...] Description 06/07/2025 1:00 PM EDT Clinical Support [facility] [address] [place] [address] Frida Knapp RN 07/12/2025 2:00 PM EST Office Visit [facility] [address] [place] [address] AnaGinger canales [address] [address] documented as of this encounter Visit Diagnoses Diagnosis Onychomycosis Dermatophytosis of nail documented in this encounter Additional Health Concerns Assessment Noted Time PHQ-9 Depression Total Score: 13 024 11:27 AM EDT documented as of this encounter Care Teams Player Manager Relationship Specialty Start Date End Date Ginger Perez FNP [address] [place] [address] PCP - General Family Medicine 08/13/22 [facility] [place] Care 11/01/22 documented as of this encounter
--- OUTSIDE RECORDS SUMMARY | 2025-05-19 17:49 | XMS_ITS | Encounter Summary ---
Author Organization [facility] Address [address] [facility] [address] [place] [address] Phone Care Team Providers Care Phlebotomist Medical Lab Assistant Name Role Phone Guille Valentine NP Primary Care Provider Reason for Referral * Consultation (Elective) - Closed Specialty Diagnoses / Procedures Referred By Contjaden t Referred To Contact Neurology Diagnoses Tremor System, Provider Not In, [facility] [address] [address] Phone: tel: Referral ID Status Reason Start Date Expiration Date Visits Re quested Visits Authorized [id number] Closed 08/11/2020 08/11/2021 1 1 Encounter Details Date Type Department Care Team (Late st Contact Info) Description 08/11/2020 Transcribe Orders [facility] Department of Neurology [address] [place] [address], [address]th Floor, [address] [place] [address] System, Provider [place] In, [place] [address] Tremor (Primary Dx) Social History Tobacco Use [...] Associated Diagnoses Order Schedule Ambulatory referral to [facility] Neurology Outpatient Referral Routine Tremor Ordered: 08/11/2020 documented as of this encounter Visit Diagnoses Diagnosis Tremor- Primary Abnormal involuntary movements documented in this encounter Care Teams Phlebotomist Medical Lab Assistant Relationship Specialty Start Date End Date Guille Valentine NP 230 [place] [address] PCP - General Family Medicine 07/03/19 documented as of this encounter Additional Source Comments The information contained in this document represents components of the legal health record. It is not the complete legal health record.[facility]
--- OUTSIDE RECORDS SUMMARY | 2025-05-19 17:49 | XMS_ITS | Encounter Summary ---
Author Organization [employer] Address 75 [facility] 7[place] [address] Care Team Providers Care Supervisory Investigative Specialist Name Role Phone Ginger Perez [facility] Primary Care Provider [phone] Reason for Visit * Reason Comments Med Refill Encounter Details Date Type Department Care Team (Late st Contact Info) Description 01/14/2025 Refill [facility]INE 230 [place], [place] [phone] Donna Dow, 230 [place], [place] [phone] Mixed anxiety and depressive disorder Social History [...] 1:00 PM EDT Clinical Support [facility] MEDICINE [address] [place] [address] Frida Knapp RN 07/12/2025 2:00 PM EST Office Visit [address] [address] Ginger Perez FNP [address] [place] [address] documented as of this encounter Visit Diagnoses Diagnosis Mixed anxiety and depressive disorder Dysthymic disorder documented in this encounter Additional Health Concerns Assessment Noted Time PHQ-9 Depression Total Score: 13 024 11:27 AM EDT documented as of this encounter Care Teams Supervisory Investigative Specialist Relationship Specialty Start Date End Date Ginger Perez FNP [address] [place] [address] PCP - General Family Medicine 08/13/22 [facility] Home Care 11/01/22 documented as of this encounter
--- OUTSIDE RECORDS SUMMARY | 2025-05-19 17:49 | XMS_ITS | Encounter Summary ---
Author Organization [employer] Address [address] [facility] [address] [place] [address] Care Team Providers Care Cans Vacuum Tester Name Role Phone [facility] Primary Care Provider [phone] Reason for Visit * Reason Comments Med Refill Encounter Details Date Type Department Care Team ([facility] st Contact Info) Description 05/22/2024 Refill [facility]INE 230 [place], [place] [phone] [facility] 230 [place] [address] Low back pain at multiple sites Social [...] Description 06/07/2025 1:00 PM EDT Clinical Support [facility] MEDICINE [address] [place] [address] Frida Knapp RN 07/12/2025 2:00 PM EST Office Visit [address] [address] Ginger Perez FNP 230 [place] [address] documented as of this encounter Visit Diagnoses Diagnosis Low back pain at multiple sites documented in this encounter Additional Health Concerns Assessment Noted Time PHQ-9 Depression Total Score: 13 024 11:27 AM EDT documented as of this encounter Care Teams Cans Vacuum Tester Relationship Specialty Start Date End Date Ginger Perez FNP [address] [place] [address] PCP - General Family Medicine 08/13/22 [facility] Home Care 11/01/22 documented as of this encounter
--- OUTSIDE RECORDS SUMMARY | 2025-05-19 17:49 | XMS_ITS | Encounter Summary ---
Author Organization [employer] Address [address] [facility] 7t [place] [address] Care Team Providers Care Dental Laboratory Worker Name Role Phone [facility] Primary Care Provider [phone] Reason for Visit * Reason Comments Med Refill Encounter Details Date Type Department Care Team ([facility] st Contact Info) Description 06/25/2023 Refill [facility] 230 [place], [place] [phone] [facility] 230 [place] [address] Muscle spasm Social History Tobacco Use Types [...] Description 06/07/2025 1:00 PM EDT Clinical Support [facility] MEDICINE [address] [place] [address] Frida Knapp RN 07/12/2025 2:00 PM EST Office Visit [address] [address] Ginger Perez FNP 230 [place] [address] documented as of this encounter Visit Diagnoses Diagnosis Muscle spasm Spasm of muscle documented in this encounter Additional Health Concerns Assessment Noted Time PHQ-9 Depression Total Score: 16 023 9:09 AM EDT documented as of this encounter Care Teams Dental Laboratory Worker Relationship Specialty Start Date End Date Ginger Perez FNP [address] [place] [address] PCP - General Family Medicine 08/13/22 [facility] Home Care 11/01/22 documented as of this encounter
--- OUTSIDE RECORDS SUMMARY | 2025-05-19 17:49 | XMS_ITS | Encounter Summary ---
Demographics Address [address] [facility] [address] [place] [address] Mobile Phone Work Phone Home Phone Email Address Preferred Language en Marital Status Single Yarsani Affiliation Unknown Race Other Race Ethnic Group Unknown Author Organization [employer] Address [address] [facility] 7[address] [place] [address] Care Team Providers Care Weather Analyst Name Role Phone Ana [facility] Primary Care Provider [phone] Encounter Details Date Type Department Care Team (Late st Contact Info) Description 12/22/2024 Orders Only [facility] 230 [place], [place] [phone] ProviderDalton MD Social History Tobacco Use Types [...] know I am going to refer to LIFE SCIENCE TEACHER for further evaluation. Thanks! documented in this encounter Plan of Treatment Upcoming Encounters Date Type Department Care Team (Late st Contact Info) Description 06/07/2025 1:00 PM EDT Clinical Support [facility] MEDICINE [address] [place] [address] Frida Knapp RN 07/12/2025 2:00 PM EST Office Visit [facility] MEDICINE [address] [place] [address] Ginger Perez FNP 230 [place] [address] documented as of this encounter Procedures Procedure [...] documented as of this encounter Care Teams Weather Analyst Relationship Specialty Start Date End Date Ginger Perez FNP [address] [place] [address] PCP - General Family Medicine 08/13/22 [facility] Home Care 11/01/22 documented as of this encounter
--- OUTSIDE RECORDS SUMMARY | 2025-05-19 17:49 | XMS_ITS | Encounter Summary ---
Author Organization [employer] Address [address] [facility] 7[address] [place] [address] Care Team Providers Care Port Surveyor Name Role Phone [facility] Primary Care Provider [phone] Reason for Visit * Reason Onset Date Comments Telephone call 03/12/2025 Encounter Details Date Type Department Care Team ([facility] st Contact Info) Description 03/12/2025 Telephone [facility] 230 [place] [address] [employer] 230 [place] [address] Telephone call Social History Tobacco Use Types [...] knee braces. Patients call back number is [phone]. Maricruz Schroeder documented in this encounter Plan of Treatment Upcoming Encounters Date Type Department Care Team (Late st Contact Info) Description 06/07/2025 1:00 PM EDT Clinical Support [facility] 230 [place] [address] Frida Knapp, RN 07/12/2025 2:00 PM EST Office Visit [facility] 230 [place] [address] Ginger Perez FNP 230 [place] [address] documented as of this encounter Visit Diagnoses Not on filedocumented in this encounter Additional Health Concerns Assessment Noted Time PHQ-9 Depression Total Score: 13 024 11:27 AM EDT documented as of this encounter Care Teams Port Surveyor Relationship Specialty Start Date End Date Ginger Perez FNP [address] [place] [address] PCP - General Family Medicine 08/13/22 [facility] [place] Care 11/01/22 documented as of this encounter
--- OUTSIDE RECORDS SUMMARY | 2025-05-19 17:49 | XMS_ITS | Encounter Summary ---
Author Organization [employer] Address [address] [facility] 7[address] [place] [address] Care Team Providers Care Tennis Centre Manager Name Role Phone [facility] Primary Care Provider [phone] Reason for Visit * Reason Onset Date Comments Nurse Triage 10/07/2023 Encounter Details Date Type Department Care Team ([facility] st Contact Info) Description 10/07/2023 Telephone [facility] 230 [place] [address] [facility] 230 [place] [address] Nurse Triage Social History Tobacco Use Types [...] 10/07/2023 3:17 PM EST TC placed to [facility], Ct scan rescheduled to 10/10/23 at [...] still having kidney pain . Patient speaks Maltese. Advised triage nurse will call patient back. documented in this encounter Plan of Treatment Upcoming Encounters Date Type Department Care Team (Late st Contact Info) Description 06/07/2025 1:00 PM EDT Clinical Support [facility] MEDICINE [address] [place] [address] Frida Knapp, RN 07/12/2025 2:00 PM EST Office Visit [facility] 230 [place] [address] Ginger Perez FNP 230 [place] [address] documented as of this encounter Visit Diagnoses Not on filedocumented in this encounter Additional Health Concerns Assessment Noted Time PHQ-9 Depression Total Score: 0 10/03/19 24 10:12 AM EST documented as of this encounter Care Teams Tennis Centre Manager Relationship Specialty Start Date End Date Ginger Perez FNP [address] [place] [address] PCP - General Family Medicine 08/13/22 [facility] [place] [place] 11/01/22 documented as of this encounter
--- OUTSIDE RECORDS SUMMARY | 2025-05-19 17:49 | XMS_ITS | Clinical Summary ---
Author Organization [facility] Address [address] [place] [address] Phone Care Team Providers Care Salvage Worker Name Role Phone Guille Valetnine NP Primary Care Provider [phone] Social History Tobacco Use Types Packs/Day Years Used Date Smoking Tobacco: Never Assessed Comments Unknown Sex and Gender Information Value Date Recorded Sex Assigned at Not on file Legal Sex Female 11:43 AM EDT Gender Identity Not on file Sexual Orientation Not on file Plan of Treatment Not on file Medical Devices Not on file Insurance [facility] C3 ACO [facility] C3 ACO [employer]3 [employer]3 ACO [employer]3 [employer] ACO [facility] C3 ACO Care Teams Salvage Worker Relationship Specialty Start Date End Date Guille Valentine NP [address] [place] [address] [phone] PCP - General Family Medicine 07/03/19 Additional Source Comments The information contained in this document represents components of the legal health record. It is not the complete legal health record.[facility]
--- OUTSIDE RECORDS SUMMARY | 2025-05-19 17:49 | XMS_ITS | Encounter Summary ---
Demographics Address [address] [place] [address] Mobile Phone Work Phone Home Phone Email Address Preferred Language en Marital Status Single Buddhist Affiliation Unknown Race Other Race Ethnic Group Unknown Author Organization [employer] Address [address] [facility] [address] [place] [address] Care Team Providers Care Automatic Engraver Name Role Phone Ginger Perez [facility] Primary Care Provider [phone] Encounter Details Date Type Department Care Team (Latest Contact Info) Description 05/18/2025 Travel Social History Tobacco Use Types Packs/Day [...] 1:00 PM EDT Clinical Support [facility]ICINE [address] [place] [address] Frida Knapp, RN 07/12/2025 2:00 PM EST Office Visit [address] [address] Ginger Perez FNP [address] [place] [address] documented as of this encounter Visit Diagnoses Not on filedocumented in this encounter Additional Health Concerns Assessment Noted Time PHQ-9 Depression Total Score: 13 024 11:27 AM EDT documented as of this encounter Care Teams Automatic Engraver Relationship Specialty Start Date End Date Ginger Perez FNP [address] [place] [address] PCP - General Family Medicine 08/13/22 [facility] [place] [facility] [place] documented as of this encounter
--- OUTSIDE RECORDS SUMMARY | 2025-05-19 17:49 | XMS_ITS | Encounter Summary ---
Author Organization [employer] Address [address] [facility] [address] [place] [address] Care Team Providers Care Marking Room Supervisor Name Role Phone [facility] Primary Care Provider [phone] Reason for Visit * Reason Onset Date Comments Durable Medical Equipment 12/18/2022 Encounter Details Date Type Department Care Team ([facility] st Contact Info) Description 12/18/2022 Telephone [facility] MEDICINE [address] [place] [address] [facility] [address] [place] [address] Durable Medical Equipment Social History Tobacco Use [...] the largest size for disposable bed pads. Interventional Physiatrist suggested a script for reusable bed pads [...] Description 06/07/2025 1:00 PM EDT Clinical Support [address] [address] Frida Knapp RN 07/12/2025 2:00 PM EST Office Visit [address] [address] [place] [address] [address] documented as of this encounter Visit Diagnoses Not on filedocumented in this encounter Additional Health Concerns Assessment Noted Time PHQ-9 Depression Total Score: 0 12/12/19 23 3:58 PM EDT documented as of this encounter Care Teams Marking Room Supervisor Relationship Specialty Start Date End Date Ginger Perez FNP [address] [place] [address] PCP - General Family Medicine 08/13/22 [facility] [place] [facility] 11/01/22 documented as of this encounter
--- OUTSIDE RECORDS SUMMARY | 2025-05-19 17:49 | XMS_ITS | Encounter Summary ---
Author Organization [employer] Address [address] [place] [address] [address] [place] [address] Care Team Providers Care Asw/Asuw Tactical Air Controller Name Role Phone Ginger Perez [facility] Primary Care Provider [phone] Encounter Details Date Type Department Care Team ([facility] st Contact Info) Description 02/21/2023 Telephone [facility] MEDICINE [address] [place], [place] [phone] [facility] 230 [place], [place] [phone] Social History Tobacco Use Types Packs/Day Years [...] - 02/25/2023 9:57 AM EDT T/C to [phone] for below message, No answer. LVM to call back on [phone]. As per last message , PCP referred pt. For Physical therapy evaluation. * Telephone Encounter - Mirta Vladimir - 02/21/2023 3:11 PM EDT Tc from [facility] requesting a script for Albuterol for nebulize machine. Computer Trainer check on med list but nothing. Also [facility] requesting a referral for Occupational Therapy and Physical Therapy in home. To contact ramya at [phone] Perez documented in this encounter Plan of Treatment Upcoming Encounters Date Type Department Care Team (Late st Contact Info) Description 06/07/2025 1:00 PM EDT Clinical Support [address] [address] Frida Knapp RN 07/12/2025 2:00 PM EST Office Visit [address] [address] Ginger Perez FNP [address] [place] [address] documented as of this encounter Visit Diagnoses Not on filedocumented in this encounter Additional Health Concerns Assessment Noted Time PHQ-9 Depression Total Score: 9 01/25/20 23 1:11 PM EDT documented as of this encounter Care Teams Asw/Asuw Tactical Air Controller Relationship Specialty Start Date End Date Ginger Perez FNP [address] [place] [address] PCP - General Family Medicine 08/13/22 [facility] [place] [facility] 11/01/22 documented as of this encounter
--- OUTSIDE RECORDS SUMMARY | 2025-05-19 17:49 | XMS_ITS | Encounter Summary ---
Author Organization [employer] Address [address] [facility] [address] [place] [address] Care Team Providers Care Seafood Clerk Name Role Phone [place] [facility] Primary Care Provider [phone] Reason for Visit * Reason Onset Date Comments Referral 07/19/2023 Encounter Details Date Type Department Care Team ([facility] st Contact Info) Description 07/19/2023 Telephone [facility] MEDICINE [address] [place] [address] [facility] [address] [place] [address] Referral Social History Tobacco Use Types Packs/Day [...] 10:29 AM EST Tc from sarah with [facility] states [facility] has not received referral. Also requesting for referral to be sent to a different location due to no availability. Any questions, contact sarah at [phone] documented in this encounter Plan of Treatment Upcoming Encounters Date Type Department Care Team (Late st Contact Info) Description 06/07/2025 1:00 PM EDT Clinical Support [address] [address] Frida Knapp, RN 07/12/2025 2:00 PM EST Office Visit [address] [address] Ginger Perez FNP [address] [place] [address] documented as of this encounter Visit Diagnoses Not on filedocumented in this encounter Additional Health Concerns Assessment Noted Time PHQ-9 Depression Total Score: 16 023 9:09 AM EDT documented as of this encounter Care Teams Seafood Clerk Relationship Specialty Start Date End Date Ginger Perez FNP [address] [place] [address] PCP - General Family Medicine 08/13/22 [facility] [place] documented as of this encounter
--- OUTSIDE RECORDS SUMMARY | 2025-05-19 17:49 | XMS_ITS | Encounter Summary ---
Author Organization [employer] Address [address] [facility] [address] [place] [address] Care Team Providers Care Making Machine Operator Name Role Phone [facility] Primary Care Provider [phone] Reason for Visit * Reason Comments Med Refill Encounter Details Date Type Department Care Team ([facility] st Contact Info) Description 05/11/2025 Refill [facility] MEDICINE [address] [place], [place] [phone] [facility] 230 [place] [address] Mixed anxiety and depressive disorder Social History [...] Clinical Support [facility] MEDICINE [address] [place] [address] Frida Knapp RN 07/12/2025 2:00 PM EST Office Visit [address] [address] Ginger Perez FNP [address] [place] [address] documented as of this encounter Visit Diagnoses Diagnosis Mixed anxiety and depressive disorder Dysthymic disorder documented in this encounter Additional Health Concerns Assessment Noted Time PHQ-9 Depression Total Score: 13 024 11:27 AM EDT documented as of this encounter Care Teams Making Machine Operator Relationship Specialty Start Date End Date Ginger Perez FNP [address] [place] [address] PCP - General Family Medicine 08/13/22 [facility] 11/01/22 documented as of this encounter
--- OUTSIDE RECORDS SUMMARY | 2025-05-19 17:49 | XMS_ITS | Clinical Summary ---
Demographics Address [address] [facility] [address] [place] [address] Mobile Phone Work Phone Home Phone Email Address Preferred Language en Marital Status Single Buddhist Affiliation Unknown Race Other Race Ethnic Group Unknown Author Organization [employer] Address [address] [facility] [address] [place] [address] Care Team Providers Care Almond Blancher Hand Name Role Phone Ginger Perez [facility] Primary Care Provider [phone] Allergies Active Allergy Reactions Criticality Noted Date Comments Iodinated Contrast Media 09/15/2024 Mushroom Extract Complex (Obsolete) Anaphylaxis High 04/14/2021 Medications * This document contains information received from the source organization and may not represent a complete record from that organization. fluticasone (Flonase Allergy Relief) 50 MCG/ACT nasal spray Administer 2 sprays into affected nostril(s) in the morning. 12/28/19 21 Active cetirizine (ZyrTEC) 10 MG tablet Take 1 tablet by mouth in the morning. 12/28/19 21 Active atorvastatin (Lipitor) 40 MG tablet Take 1 tablet by mouth at bed time. 07/14/20 20 Active Blood Glucose Monitoring Suppl misc Active Alcohol Swabs (Alcohol Prep) padsIndications: Type 2 diabetes mellitus with hyperglycemia, with long-term current use of insulin ([facility]) Use as directed 100 each 11 11/07/19 23 Active Reguloid 57.6 % powderIndication s:Constipation, unspecified constipation type MIX 1 TEASPOONFUL IN 8 OUNCES OF WATER OR JUICE AND DRINK EVERY MORNING 284 g 03/11/20 23 Active Blood Glucose Monitoring Suppl (GNP Easy Touch Glucose Meter) deviceIndication s:Type 2 diabetes mellitus with hyperglycemia, with long-term current use of insulin (CMS/[facility]) Use as directed to check blood sugar four times daily 1 each 03/20/20 23 Active glucose blood test stripIndications :Type 2 diabetes mellitus with hyperglycemia, with long-term current use of insulin ([facility]) Use as directed to check blood sugar four times daily 100 each 12 03/20/20 23 Active Advair Diskus 250-50 MCG/ACT aerosol powder INHALE 1 PUFF BY MOUTH TWICE DAILY IN THE MORNING AND IN THE EVENING APPROXIMATELY 12 HOURS APART. RINSE MOUTH AFTER USING. 60 each 2 04/09/20 23 Active TRUEplus Lancets 33G miscIndications: Type 2 diabetes mellitus with hyperglycemia, with long-term current use of insulin ([facility]) USE TO TEST BLOOD SUGAR FOUR TIMES DAILY 100 each 11 08/21/20 23 Active Blood Pressure kitIndications:T ype 2 diabetes mellitus with hyperglycemia, with long-term current use of insulin ([facility]) Use as directed 1 kit 11/13/19 24 Active melatonin 5 MG tabletIndication s:Mixed anxiety and depressive disorder TAKE 1 TABLET BY MOUTH EVERY EVENING 2-3 HOURS BEFORE BEDTIME. 90 tablet 3 03/16/20 24 Active tiZANidine (Zanaflex) 4 MG tabletIndication s:Muscle spasm TAKE 1 TABLET BY MOUTH EVERY 8 HOURS NEEDED. DO NOT EXCEED 3 TABLETS IN 24 HOURS 90 tablet 11 05/11/20 24 Active albuterol (Ventolin HFA) 108 (90 Base) MCG/ACT inhaler INHALE 2 PUFFS BY MOUTH FOUR TIMES DAILY NEEDED 18 g 11 05/11/20 24 Active oxyCODONE (Roxicodone) 5 MG immediate release tabletIndication s:Low back pain at multiple sites Take 1 tablet (5 mg) by mouth every 6 (six) hours if needed for severe pain. 12 tablet 05/13/20 24 Active naloxone (Narcan) 4 mg/0.1 mL nasal sprayIndications :Low back pain at multiple sites Administer 1 spray (4 mg) into affected nostril(s) if needed for opioid reversal. May repeat every 2-3 minutes if needed, alternating nostrils, until medical assistance becomes available. 2 each 3 10/29/19 25 026 Active olmesartan (BENIcar) 5 MG tabletIndication s:Primary hypertension TAKE 2 TABLETS BY MOUTH ONCE DAILY IN THE MORNING 180 tablet 3 12/01/19 25 Active prazosin (Minipress) 5 MG capsuleIndicatio ns:Mixed anxiety and depressive disorder TAKE 1 CAPSULE BY MOUTH AT BEDTIME 90 capsule 2 12/01/19 25 Active albuterol (2.5 MG/3ML) 0.083% nebulizer solutionIndicati ons:Moderate persistent asthma without complication INHALE 1 AMPULE USING A NEBULIZER EVERY 6 HOURS NEEDED FOR WHEEZING 90 mL 11 12/10/19 25 Active cholecalciferol VITAMIN D (Vitamin D-3) 50 MCG (2000 UT) tabletIndication s:Chronic pain syndrome TAKE 1 TABLET BY MOUTH EVERY MORNING 90 tablet 1 02/02/20 25 Active Tirzepatide (Mounjaro) 5 MG/0.5ML solution auto-injectorInd ications:Type 2 diabetes mellitus with chronic kidney disease, with long-term current use of insulin, unspecified CKD stage ([facility]) Inject 5 mg under the skin 1 (one) time per week. 2 mL 3 02/06/20 25 Active gabapentin (Neurontin) 300 MG capsuleIndicatio ns:Mixed anxiety and depressive disorder Take 1 capsule by mouth every morning and every noon. Also take Gabapentin 600 mg 2 talets at bedtime 30 capsule 5 02/09/20 25 Active propranolol (Inderal) 40 MG tablet TAKE 1 TABLET BY MOUTH TWICE DAILY 180 tablet 1 02/25/20 25 Active Alcohol Swabs (Alcohol Prep) 70 % padsIndications: Type 2 diabetes mellitus with hyperglycemia, with long-term current use of insulin ([facility]) USE DIRECTED FIVE TIMES DAILY 100 each 11 02/25/20 25 Active polyethylene glycol, PEG, 3350 (Glycolax) 17 GM/SCOOP powderIndication s:Constipation, unspecified constipation type MIX 17G (1 CAPFUL) IN 8 OUNCES OF WATER AND TAKE BY MOUTH TWICE A DAY FOR 3 DAYS 510 g 2 03/24/20 25 Active triamcinolone (Kenalog) 0.1 % ointmentIndicati ons:Rash and nonspecific skin eruption Apply topically 2 times daily. 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 Very upset by experience at [facility]. Currently working with [facility] weight mgnmt for removal of lap band. Assessment & Plan (05/03/2023 10:30 AM EDT): Details of current weight mngmt plan through [facility] unclear. Will request notes and follow up as indicated Obstructive sleep apnea 09/29/2022 Overview (06/04/2023): Compliant with BiPAP Followed by [facility] neurology and sleep clinic. Dr. Temple Gender dysphoria in adult 09/29/2022 Overview (09/29/2022): Interested in pursuing top and bottom gender reassignment surgery Not a candidate for hormone therapy Healthcare maintenance 09/29/2022 Overview (02/25/2024): Mammo: 07/2022--Birads 2 Pap: HPV negative 2019, no cytology on record. C-scope: Upcoming colonoscopy [facility] GI BMD: Routine age 63 Chronic pain [...] management. Any issues or concerns, contact [facility]. All his questions were answered and [...] be left alone, encouraged to request increased FIELD NATURALIST hours. Will increase bedtime Gabapentin to 1200 [...] of family members and/or 1 of 2 FIELD NATURALIST's always present. Patient was able to contract [...] prescriber. We did not discuss my planned group home today. F/U with me in 1 month. [...] morning Jardiance 25 mg daily Followed by [facility] Slurry Worker Has dexcom CGM Metformin stopped due to [...] 2.5mg Continue to follow as scheduled with [facility] DM educator Will task RN's to contact patients care transport nurse to ensure that [facility] is aware of med change. Strongly encouraged patient to continue with FIELD NATURALIST/VNA services due to multiple chronic conditions and patient's difficulty self managing care. Patient verbalizes understanding and agrees to plan Assessment & Plan (05/03/2023 10:15 AM EDT): Continue to work with [facility] DM educator Henny-will request records and recent [...] Encounters Date Type Department Care Team Description 05/19/2025 Orders Only [facility] External Provider, [facility] 05/18/2025 Travel 05/18/2025 Refill [facility] [address] [place] [address] Ginger Perez FNP Mixed anxiety and depressive disorder 05/17/2025 Refill [facility] [address] [place] [address] Ana Ginger, EXTRUDER OPERATOR HELPER 05/12/2025 Refill [facility] [address] [place] [address] Ana Ginger, EXTRUDER OPERATOR HELPER 05/11/2025 Refill [facility] [address] [place] [address] Ana Ginger, EXTRUDER OPERATOR HELPER Mixed anxiety and depressive disorder 04/19/2025 Telephone [facility] [address] [place] [address] Ana Ginger, EXTRUDER OPERATOR HELPER 04/19/2025 Refill [facility] [address] [place] [address] Ana Ginger, EXTRUDER OPERATOR HELPER 04/14/2025 Telephone [facility] [address] [place] [phone] Ana Ginger EXTRUDER OPERATOR HELPER MRI ORDER 04/14/2025 Refill [facility] [address] [place] [address] Ana GERALD Miles Mixed anxiety and depressive disorder 04/09/2025 Refill [facility] [address] [place] [address] Ana GERALD Miles Other chronic pain 03/31/2025 Telephone [facility] [address] [place] [address] Ginger Perez EXTRUDER OPERATOR HELPER Nurse Triage 03/29/2025 Refill [facility] [address] [place] [address] Ginger Perez FNP Rash and nonspecific skin eruption 03/26/2025 Telephone [facility] [address] [place] [address] Ginger Perez FNP Care Coordination 03/23/2025 Refill [facility] [address] [place] [address] Ginger Perez FNP Constipation, unspecified constipation type 03/22/2025 11:30 AM EDT Office Visit [facility] [address] [place] [phone] Ginger Perez FNP Gait instability (Primary Dx); Type 2 diabetes mellitus with hypoglycemia without coma, with long-term current use of insulin ([facility]); Postmenopausal bleeding; Low back pain at multiple sites 03/22/2025 Travel 03/19/2025 Refill [facility] [place] [address] Melani Machuca MD Mixed anxiety and depressive disorder 03/19/[address] [facility] [place] [address] Ginger Perez [facility] Chart Prep 03/15/2025 [address] [place] [address] AnaGinger [facility] Appointment Rescheduling 03/12/[address] [facility] [place] [address] Ginger Perez [facility] Chart Prep 03/12/[address] [facility] [place] [address] Ginger Perez [facility] Telephone call 03/04/2025 1:00 PM EDT Clinical Support [facility] [place] [address] Frida Knapp, RN Long-term current use of benzodiazepine (Primary Dx) 03/04/[address] [facility] [place] [address] Frida Knapp, RN C/O vaginal bleeding; GIA scoring; UTOX Neg BZO 03/04/2025 Travel 03/04/[address] [facility] [place] [address] Frida Knapp, RN Error (VOID this visit) 03/02/2025 Orders Only GENERIC EXTERNAL DATA DEPARTMENT Provider, Generic External Data 02/24/2025 Refill [facility] [place] [address] Ginger Perez FNP Type 2 diabetes mellitus with hyperglycemia, with long-term current use of insulin (CMS/[facility]) 02/23/2025 Refill [facility] [place] [address] Ginger Perez FNP Type 2 diabetes mellitus with hyperglycemia, with long-term current use of insulin ([facility]) 02/17/2025 Orders Only GENERIC EXTERNAL DATA DEPARTMENT Provider, Generic External Data from Last 3 Months Immunizations Immunization Administration [...] Sign Reading Time Taken Comments Blood Pressure 138/60 05/18/2025 2:30 PM EDT Pulse 80 05/18/2025 2:30 PM EDT Temperature 36.4 C (97.6 F) 03/22/2025 [...] Description 06/07/2025 1:00 PM EDT Clinical Support [facility] [address] [place] [phone] Frida Knapp, RN 07/12/2025 2:00 PM EST Office Visit [facility] [address] [place] [phone] Ginger Perez FNP [address] [place] [address] Health Maintenance Due Date Last Done Comments CT Colonography 1965 FIT DNA/Cologuard 1965 FIT 1965 FOBT 1965 Sigmoidoscopy 1965 Disability Screening 1965 Diabetes: Foot Exam 1973 Eye Exam 1973 Alcohol/Substance Use Screening 1975 Diabetes: Urine Protein Screening 1982 Hepatitis A Vaccines (1 of 2 - [...] VIEWS LEFT Routine 05/19/2025 2:24 PM EDT POCT GLYCATED HEMOGLOBIN, TOTAL Routine 03/22/2025 11:53 AM EDT Type 2 diabetes mellitus with hypoglycemia without coma, with long-term current use of insulin ([facility]) POCT GLUCOSE Routine 03/22/2025 11:52 AM EDT Type 2 diabetes mellitus with hypoglycemia without coma, with long-term current use of insulin ([facility]) POCT BLANKA-14 URINE DRUG SCREEN Routine 03/04/2025 [...] use of insulin, unspecified CKD stage (CMS/HCC) LIPID PANEL, STANDARD Routine 09/14/2024 1:25 PM [...] Recently Relevant to Health Maintenance Results * XR Foot 3+ Views Left (05/19/2025 2:24 PM EDT) Anatomical Region Laterality Modality Lower Extremities, Foot Left Radiogra phic Imaging 05/19/2025 2:24 PM EDT Narrative 05/19/2025 2:40 PM EDT [place] [address] Brodie Report Signed Patient: Hilda Mcmahan MR#: [id number] : 1965 Acct:[id number] Age/Sex: 59 / F ADM Date: 05/19/25 Loc: DAO Attending Dr: Nichelle Catalan DPM Ordering Physician: Nichelle Catalan DPM Date of Service: 05/19/25 Procedure(s): XR foot LT min 3V Accession Number(s): [id number] cc: Nichelle Catalan DPM; [facility] Reason for Exam: M79.675 - [...] 05/19/25 1436 DD/ 1424 TD/TT: 05/19/25 1420 Image Archivist: Procedure Note Donotuseinterpreter, Image - 05/19/2025 [place] [address] XRay Report Signed Patient: Hilda McmahanMR#: [id number] : 1965Acct:[id number] Age/Sex: 59 / FADM Date: 05/19/25 Loc: DAO Attending Dr: Nichelle Catalan DPM Ordering Physician: Nichelle Catalan DPM Date of Service: 05/19/25 Procedure(s): XR foot LT min 3V Accession Number(s): [id number] cc: Nichelle Catalan DPM; [facility] Reason for Exam: M79.675 - [...] 05/19/25 1436 DD/ 1424 TD/TT: 05/19/25 1420 Image Archivist: [facility] External Provider IMG XR PROCEDURES Edited Result - Final * (ABNORMAL) POCT HGB A1C (03/22/2025 11:53 AM EDT) Hemoglobin A1C 5.8(A) 4.0 - 5.7 % QC Media Lot # [id number] Lot# Expiration Date Blood 03/22/2025 11:5 3 AM EDT [facility] POINT OF CARE TEST ENTER/EDIT ORDERABLES Final Result * POCT Glucose (03/22/2025 11:52 AM EDT) Glucose Blood, POC 160 60 - 200 mg/dL QC Media Lot # [id number] Lot# Expiration Date 297 Blood Capillary blood specimen / Unknown 03/22/2025 11:52 AM EDT [facility] POINT OF CARE TEST ENTER/EDIT ORDERABLES [...] - 03/04/2025 1:57 PM EDT UTOX cup Lot#[id number] Exp. 06/08/26 Internal Pass Control [facility] POINT OF CARE TEST ENTER/EDIT ORDERABLES Final Result * Drug Monitoring, Benzodiazepines, Quantitative, Urine (03/04/2025 1:30 PM EDT) Nordiazepam, GCMS Urine NEGATIVE [facility] Comment:[id number] ng/mL Oxazepam, GCMS Urine NEGATIVE [facility] Comment:CVBZXE94 ng/mL Lorazepam GCMS Urine NEGATIVE [facility] Comment:ETUYEP06 ng/mL Alprazolam, GCMS Urine NEGATIVE [facility] Comment:KAPSXF66 ng/mL Alphahydroxytriazolam, GCMS Ur NEGATIVE [facility] Comment:PDWBQW93 ng/mL Temazepam, GCMS Urine NEGATIVE [facility] Comment:NSQZDC84 ng/mL Alphahydroxymidazolam,GC MS Ur NEGATIVE [facility] Comment:NTZEXI72 ng/mL Aminoclonazepam, GCMS Urine 941 [facility] Comment:VQAVFJ56 ng/mL Flurazepam Metabolite,GCMS Ur NEGATIVE [facility] Comment:ATVWTQ28 ng/mL Benzodiazepines Comments SEE NOTE [facility] Comment:NOTES AND COMMENTSTh is drug testing is for medical treatment only. Analysiswas performed as non-forensic testing and these resultsshould be used only by healthcare providers torender diagnosis or treatment, or to monitor progress ofmedical conditions.Benzodiazepines Notes:Aminoclonazepam detected is consistent with the use of thedrug Clonazepam.LDT Notes:Confirmation tests were developed and their analyticalperformance characteristics have been determined by [employer]. It has not been cleared orapproved by the FDA. This assay has been validated pursuantto the CLIA regulations and is used for clinical purposes.Healthcare Providers needing Interpretation assistance,please contact us at [phone] ( ) M-F,8am to 10pm ESTPERFORMING SITE:[facility] [employer] [facility], [address] [place] [phone] Discharge Planner: LIEN HARO MD, CLIA:[id number] Urine (Urine, Random) 03/04/2025 1:30 PM EDT 03/04/2025 4:21 PM EDT [facility] EXTRUDER OPERATOR HELPER LAB URINE ORDERABLES Final Re sult Performing Organization Address [facility]/ZIP Co de Phone Number [facility] [address] [place] [phone] * Glucose, Whole Blood (03/02/2025 3:33 PM EDT) Only the most recent of2 resultswithin the time period is included. Glucose, Whole Blood 103 60 - 115 mg/dL [facility] Comment:METER #: [id number] Testing performed in the Endocrinology Department [address], [address], [facility]. 03/02/2025 3:33 PM EDT 03/02/2025 3:41 PM EDT Generic External Data Provider LAB BLOOD ORDERAB LES Final Result Performing Organization Address [facility]/ZIP Co de Phone Number [facility] [address] [place] [phone] * Hm Colonoscopy (12/24/2024) Colonoscopy Normal Normal Comment:negative repeat 10 y ears. Historical Provider HEALTH MAINTENANCE Final Result * HIV-1/2 Antigen and Antibodies, Fourth Generation, with Reflexes (10/01/2024 9:58 AM EST) HIV AB/AG Nonreactive Nonreactive [facility] Comment:HIV-1 p24 Ag and/or HIV-1/HIV-2 Ab not detected.A test result that is nonreactive does not exclude thepossibility of exposure to or infection with HIV-1 and/orHIV-2. Nonreactive results in this assay for individualswith prior exposure to HIV-1 and/or HIV-2 may be due toantigen and antibody levels that are below the limit ofdetection of this assay.The [employer] HIV Ag/Ab Combo assay result andsupplemental assay results should be interpreted inconjunction with the patient's clinical presentation,history and other laboratory results. If the results areinconsistent with clinical evidence, additional testing issuggested to confirm the result. Blood Venous blood specimen / Unknown 10/01/2024 9:58 AM EST 10/01/2024 11:04 AM EST [facility] EXTRUDER OPERATOR HELPER LAB BLOOD ORDERABLES Final Re sult [facility] [address] [place] [phone] [phone] * (ABNORMAL) Lipid Panel, Standard (09/14/2024 1:25 PM EST) Triglycerides 123 <150 mg/dL [facility] Comment:Desirable Triglyceri de: less than 150 mg/dLBorderline High Triglyceride 150-199 mg/dLHigh Triglyceride: 200-499 mg/dLVery High Triglyceride: greater than or equal to 5OO mg/dL Cholesterol 146 <200 mg/dL [facility] Comment:Desirable Cholestero l: less than 200 mg/dLBorderline High Cholesterol: 200-239 mg/dLHigh Cholesterol: greater than 239 mg/dL LDL Cholesterol Calculated 83 <100 mg/dL [facility] Comment:Desirable LDL: less than 100 mg/dLNear Optimal/Above Optimal LDL: 110- 129 mg/dLBorderline High LDL: 130-159 mg/dLHigh LDL: 160-189 mg/dLVery High LDL: greater than or equal to 190 mg/dL HDL Cholesterol 39(L) >40 mg/dL [facility] Comment:Desirable HDL: great er than 40 mg/dL Note: This HDL assay may give artificially low results in patients with liver disease. Blood Venous blood specimen / Unknown 09/14/2024 1:25 PM EST 09/14/2024 4:07 PM EST [facility] LAB BLOOD ORDERABLES Final Re sult [facility] [address] [place] [phone] * Pap Smear (09/08/2024 9:30 AM EST) Swab Cervix uteri structure / Unknown 09/08/2024 9:30 AM EST 09/09/2024 10:20 AM EST Narrative [facility] - 09/17/2024 3:06 PM EST ----- ------- Name: Hilda Mcmahan Age/Sex: 59/F : 1965 Unit#: [id number] Attend Dr: CORBIN HUGHES CNM Re09/08/24 Status: DEP REF Location: [facility] Disch: ----- ------- SPEC : [id number] RECD: 09/09/24 STATUS: HENNA SOLIS NUM: [id number] LORI: 09/08/[address] [facility] [address]: CORBIN HUGHES CNM ENTERED: 09/09/24 [...] CNM LAB CYTOLOGY ORDERABLES F inal Result [facility] [address] [place] [phone] * HPV mRNA E6/E7 w/Reflex to HPV Genotypes 16, 18/45 (09/08/2024 12:00 AM EST) Historical Provider LAB CYTOLOGY ORDERABLES F inal Result * BI Mammogram Screening Tomosynthesis Bilateral (08/27/2024 1:05 PM EST) Anatomical Region Laterality Modality Breast Bilateral Mammography 08/27/2024 1:05 PM EST Narrative 09/08/2024 4:57 PM EST [place] [facility] [address] [place] [address] Mammography Report Signed Patient: Hilda Mcmahan MR#: [id number] : 1965 Acct:[id number] Age/Sex: 59 / F ADM Date: 08/27/24 Loc: HO.MAMMO Attending Dr: Oz Sahni MD Ordering Physician: Ginger Perez EXTRUDER OPERATOR HELPER Results: 1Nega tive Date of Service: 08/27/24 Follow Up: 1 Year From Orig inal Mammogram Procedure(s): MM tomosynthesis screening BI Accession Number(s): [id number] cc: Ginger Perez EXTRUDER OPERATOR HELPER EXAMINATION: MM SCREENING DIGITAL BREAST TOMOSYNTHESIS, BILATERAL [...] by Pepper Mercer DO in OV> 09/08/24 1659 DD/ 1305 TD/TT: 08/27/24 1329 Image Archivist: Procedure Note Donotuseinterpreter, Image - 09/08/2024 [facility] [address] [place] [address] Dr. Ivey, DAREK [address] Mammography Report Signed Patient: Hilda McmahanMR#: [id number] : 1965Acct:[id number] Age/Sex: 59 / FADM Date: 08/27/24 Loc: HO.MAMMO Attending Dr: Oz Sahni MD Ordering Physician: [place]woodGinger FNPResults: 1Nega tive Date of Service: 08/27/24Follow Up: 1 Year From Orig inal Mammogram Procedure(s): MM tomosynthesis screening BI Accession Number(s): [id number] cc: [facility] EXTRUDER OPERATOR HELPER EXAMINATION: MM SCREENING DIGITAL BREAST TOMOSYNTHESIS, BILATERAL [...] 09/08/24 1654 DD/ 1305 TD/TT: 08/27/24 1329 Image Archivist: [facility] EXTRUDER OPERATOR HELPER IMG BI PROCEDURES Final Resul t * Hepatitis C Antibody with Reflex to HCV, RNA, Quantitative, Real-Time PCR (09/25/2022 12:06 PM EST) Hepatitis C Antibody NON-REACT MARRY NON-REACT MARRY [employer] Interactive Diagnost Index 0.12 <1.00 KnowRe[facility]Pulselockert Comment: HCV antibody was non-reactive. There is no laboratory evidence of HCV infection. In most cases, no further action is required. However, if recent HCV exposure is suspected, a test for HCV RNA (test code 20520) is suggested. For additional information please refer to http://education.Connexient/faq/OTD60q9 (This link is being provided for informational/ educational purposes only.) Blood Venous blood specimen / Unknown 09/25/2022 12:06 PM EST 09/25/2022 12:06 PM EST Narrative [facility] - 09/27/2022 8:46 AM EST FASTING:YES FASTING: YES [facility] LAB BLOOD ORDERABLES Final Re sult [facility] [address], [place] [address] [facility] 200 [facility], (Nl2) [place] [address] from Last 3 Months or Most Recently Relevant to Health Maintenance Insurance [email or web address] C3 Care Teams Almond Blancher Hand Relationship Specialty Start Date End Date [place] Ginger [facility] [address] [place] [address] PCP - General Family Medicine 08/13/22 [facility] 11/01/22
== END 2025-05-19 14:04 | disposition home or self-care (01) ==
LOC: HO.XRAY 14:03
PROVIDERS: PCP Registered Nurse; Visit Provider Student in an Organized Health Care Education/Training Program
DX: S99.922A Unspecified injury of left foot, initial encounter (principal); X58.XXXA Exposure to other specified factors, initial encounter; M79.675 Pain in left toe(s)
CPT/HCPCS: 73630

== ENCOUNTER → 2025-05-19 14:08 | Outpatient (BNV) | payer MEDICAID, SELFPAY | PROVIDERS: PCP Registered Nurse; Visit Provider Radiology Diagnostic Radiology | DX: M79.675 Pain in left toe(s) (principal); M77.32 Calcaneal spur, left foot | CPT/HCPCS: 73630 ==

== ENCOUNTER 2025-06-02 15:11 | Outpatient (AMB) | payer MEDICAID, SELFPAY ==
[2025-06-02 15:17] VITALS: BP 110/62; PULSE 81; O2SAT 98; BMI 33.1
--- NOTE | 2025-06-02 15:17 | A.OFFVIS_ITS ---
Vital Signs 06/02/25 15:17 Height 5 ft 2 in Weight 180 lb 12.465 oz BMI 33.1 BP 110/62 Blood Pressure Location Lt brachial Position Sitting Pulse 81 Pulse Source Pulse Oximeter Pulse Oximetry (%) 98 Oxygen Delivery Method Room Air Intake Visit Reasons: T2DM and Subclinical hyperthyroid Intake Note: Patient present today for Type 2 Diabetes Mellitus and Subclinical hyperthy roidism.? Last Diabetic eye exam:?Last year at [facility]. Last Podiatry Visit: Doesn't have one Random Glucose:?84 mg/dl HgA1C: DUE High School Biology Teacher Required: No High School Biology Teacher Services: High School Biology Teacher Offered & Declined (Bengali) Accompanied by: Self / Same As Patient Allergies mushroom Allergy (Verified 06/02/25 15:25) Anaphylaxis HPI Comments Details: The patient is a 59-year-old female presenting with diabetes mellitus management and associated hypoglycemia. She is currently on Mounjaro 5 mg Q weekly. C/O episodes of hypoglycemia even when not takes Mounjaro K Dexcom download shows she is using the sensor 96% of the time. G mi is 6.1% with very variation of 32.8% and average glucose of 117 she has 87% range with 7% hyperglycemia but concerning as a 5% hypoglycemia at 1% very low. The pattern of hypoglycemia occurs predominantly overnight from 04:00 to 09:00 Had bariatric surgery 1 yr ago Terms of the thyroid, she has very mild suppression of TSH to 0.31 PFSH Medical History Injury of left great toe Pain of left great toe Stenotic cervical os Post-menopausal bleeding Hypoglycemia Fatty liver Subclinical hyperthyroidism Seizures Vitamin D deficiency Chronic pain syndrome Spondylosis 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 myelopathy Disc degeneration, lumbar Hip osteoarthritis Sacroiliitis Illiterate Morbid obesity due to excess calories Diabetes mellitus type 2, controlled, without complications Essential hypertension Hyperlipidemia LDL goal <100 Panic attacks VELASQUEZ on CPAP History of tremor Gender dysphoria Anxiety Depression Asthma Epilepsy Hypertension Surgical History History of esophagogastroduodenoscopy (EGD) Hx of laparoscopic gastric banding Family History Father CVD (cardiovascular disease) Mother Hypertension Sister Breast cancer Social History Household Members: Children and None Household Members Other:: 2 dogs Are you a primary home health care coordinator to a significant other at home: No Do you presently have visiting nurse or other home services: Yes Alcohol intake: former Patient Tobacco Use Status: Former Tobacco user Substance Use Type: Marijuana Female Reproductive History Menstrual Age of Menarche: 12 Physical Exam Vital Signs: Last Vital Signs Pulse 81 06/02/25 15:17 BP 110/62 06/02/25 15:17 Pulse Ox 98 06/02/25 15:17 Oxygen Delivery Method Room Air 06/02/25 15:17 BMI result Body Mass Index 33.1 Absence of Cushingoid features. Absence of acromegalic features. Neck exam reveals nl size thyroid about 15 gms. No thyroid nodules palpable. No carotid bruits present. Lungs CTA. Heart S1 S2, Reg R/R. No M/R/ G. Skin exam reveals absence of vitiligo or acanthosis nigricans. Abdominal exam reveals Soft NT/ND with NA BS. No organomegaly present. Neck Other: . Extrem Other: Visual exam of foot performed. No ulcerations or open lesions. R forth toe with scaly lesion No onchomycosis, no callouses.Pulses 2 + distally Sensation intact to monofilament exam. Vibratory sensation sensed is intact with 128 Hz tuning fork Results AMB Hemoglobin A1c AMB Hemoglobin A1c 5.8 % Last Edit by Beverley Lopez CMA on 06/02/25 15:51 Results Reviewed Results Reviewed: Laboratory Last Values Glucose (Clinic) 84 mg/dL (60-115) 06/02/25 15:36 Assessment & Plan Assessment & Plan (1) Subclinical hyperthyroidism: Code(s): E05.90 - Thyrotoxicosis, unspecified without thyrotoxic crisis or storm Category: Medical Plan: Mild suppression of TSH with improvement. No need for any further follow up at this point. If TSH suppresses to less than 0.1, patient should be referred back to endocrinology (2) Hypoglycemia: Code(s): E16.2 - Hypoglycemia, unspecified Category: Medical Plan: Main concern is symptomatic hypoglycemia occurring fasting and only wanted a year after bariatric surgery suggest that it may not be post-bariatric hypoglycemia we will may be related to endogenous hyperinsulinemia. I made a referral to hypoglycemic expert at [facility] namely Karlie Ruvalcaba for further workup which might include a fast with measurement of insulin, proinsulin and C-peptide when patient is symptomatically hypoglycemic. Patient was informed about the plan and agrees. She will follow up here after her appointment at [place]. I told her the stopped the Lacie Orders: Orders AMB Hemoglobin A1c Today E11.9 - Type 2 diabetes mellitus without complications, Z79.4 - FPC (current) use of insulin Referrals Endocrinology Referral E16.2 - Hypoglycemia, unspecified Coding Level of Care Code Est Pt Level 3 (95552) Diagnoses Subclinical hyperthyroidism E05.90 Hypoglycemia E16.2
[2025-06-02 15:43] LABS: Glucose, Whole Blood 84 mg/dL (60-115)
--- OUTSIDE RECORDS SUMMARY | 2025-06-02 16:12 | XMS_ITS | Encounter Summary ---
Author Organization [employer] Address [address] [facility] 7[address] [place] [address] Care Team Providers Care Bullet Assembly Press Setter Operator Name Role Phone [facility] Primary Care Provider [phone] Reason for Visit * Reason Comments Med Refill Encounter Details Date Type Department Care Team ([facility] st Contact Info) Description 06/25/2023 Refill [facility] [address] [place], [place] [phone] [facility] [address] [place] [address] Muscle spasm Social History Tobacco Use Types [...] Description 06/07/2025 1:00 PM EDT Clinical Support [facility] [address] [place] [address] Frida Knapp RN 06/08/2025 10:20 AM EDT Office Visit [facility] [address] [place] [address] 07/12/2025 2:00 PM EST Office Visit [facility] [address] [place] [address] Ginger Perez FNP [address] [place] [address] documented as of this encounter Visit Diagnoses Diagnosis Muscle spasm Spasm of muscle documented in this encounter Additional Health Concerns Assessment Noted Time PHQ-9 Depression Total Score: 16 023 9:09 AM EDT documented as of this encounter Care Teams Bullet Assembly Press Setter Operator Relationship Specialty Start Date End Date Ginger Perez FNP [address] [place] [address] PCP - General Family Medicine 08/13/22 [facility] [place] Home Care 11/01/22 documented as of this encounter
--- OUTSIDE RECORDS SUMMARY | 2025-06-02 16:12 | XMS_ITS | Encounter Summary ---
Author Organization [employer] Address [address] [facility] [address] [place] [address] Care Team Providers Care Truck Driver Name Role Phone [facility] Primary Care Provider [phone] Reason for Visit * Reason Comments Med Refill Encounter Details Date Type Department Care Team (Late st Contact Info) Description 02/04/2025 Refill [facility] [address] [place], [place] [phone] [facility] [address] [place] [address] Type 2 diabetes mellitus with chronic kidney [...] Description 06/07/2025 1:00 PM EDT Clinical Support [facility] [address] [place] [address] Frida Knapp RN 06/08/2025 10:20 AM EDT Office Visit [facility] [address] [place] [address] 07/12/2025 2:00 PM EST Office Visit [facility] [address] [place] [address] Ginger Perez FNP [address] [place] [address] documented as of this encounter Visit Diagnoses Diagnosis Type 2 diabetes mellitus with chronic kidney disease, with long-term current use of insulin, unspecified CKD stage (HCC) documented in this encounter Additional Health Concerns Assessment Noted Time PHQ-9 Depression Total Score: 13 024 11:27 AM EDT documented as of this encounter Care Teams Truck Driver Relationship Specialty Start Date End Date Savannah GERALD Miles [address] [place] [address] PCP - General Family Medicine 08/13/22 [facility] Home Care 11/01/22 documented as of this encounter
--- OUTSIDE RECORDS SUMMARY | 2025-06-02 16:12 | XMS_ITS | Encounter Summary ---
Author Organization [employer] Address 75 [facility] 7[address] [place] [address] Care Team Providers Care Flour Tester Name Role Phone [facility] Primary Care Provider [phone] Reason for Visit * Reason Onset Date Comments Telephone call 03/12/2025 Encounter Details Date Type Department Care Team ([facility] st Contact Info) Description 03/12/2025 Telephone [facility] 230 [place] [address] [facility] [address] [place] [address] Telephone call Social History Tobacco Use Types [...] knee braces. Patients call back number is [phone]. Maricruz Schroeder documented in this encounter Plan of Treatment Upcoming Encounters Date Type Department Care Team (Late st Contact Info) Description 06/07/2025 1:00 PM EDT Clinical Support [facility] [address] [facility] [place] [address] Frida Knapp RN 06/08/2025 10:20 AM EDT Office Visit [facility] OPTOM[facility]RY [address] [place] [address] 07/12/2025 2:00 PM EST Office Visit [facility] [address] [facility] [place] [address] Ginger Perez FNP [address] [facility] [address] documented as of this encounter Visit Diagnoses Not on filedocumented in this encounter Additional Health Concerns Assessment Noted Time PHQ-9 Depression Total Score: 13 024 11:27 AM EDT documented as of this encounter Care Teams Flour Tester Relationship Specialty Start Date End Date Ginger Perez FNP [address] [facility] [place] [address] PCP - General Family Medicine 08/13/22 [facility] [place] 11/01/22 documented as of this encounter
--- OUTSIDE RECORDS SUMMARY | 2025-06-02 16:12 | XMS_ITS | Clinical Summary ---
Author Organization [facility] Address [address] [place] [address] Phone Care Team Providers Care School Age Teacher Name Role Phone Guille Valentine NP Primary Care Provider [phone] Social History Tobacco Use Types Packs/Day Years Used Date Smoking Tobacco: Never Assessed Comments Unknown Sex and Gender Information Value Date Recorded Sex Assigned at Not on file Legal Sex Female 11:43 AM EDT Gender Identity Not on file Sexual Orientation Not on file Plan of Treatment Not on file Medical Devices Not on file Insurance [facility] C3 ACO [facility] C3 ACO C3 ACO C3 ACO C3 ACO C3 ACO C3 ACO C3 ACO [facility] C3 ACO Care Teams School Age Teacher Relationship Specialty Start Date End Date Guille Valentine NP [address] [place] [address] [phone] PCP - General Family Medicine 07/03/19 Additional Source Comments The information contained in this document represents components of the legal health record. It is not the complete legal health record.[facility]
--- OUTSIDE RECORDS SUMMARY | 2025-06-02 16:12 | XMS_ITS | Encounter Summary ---
Author Organization [employer] Address 75 [facility] 7[address] [place] [address] Care Team Providers Care Mathematics Academic Chair Name Role Phone [facility] Primary Care Provider [phone] Reason for Visit * Reason Comments Med Refill Encounter Details Date Type Department Care Team ([facility] st Contact Info) Description 05/11/2025 Refill [facility] 230 [place], [place] [phone] [facility] 230 [place] [address] Mixed anxiety and depressive disorder Social History [...] Description 06/07/2025 1:00 PM EDT Clinical Support [facility] [address] [place] [address] Frida Knapp RN 06/08/2025 10:20 AM EDT Office Visit [facility] [address] [place] [address] 07/12/2025 2:00 PM EST Office Visit [facility] [address] [place] [address] Ginger Perez FNP [address] [place] [address] documented as of this encounter Visit Diagnoses Diagnosis Mixed anxiety and depressive disorder Dysthymic disorder documented in this encounter Additional Health Concerns Assessment Noted Time PHQ-9 Depression Total Score: 13 03/16/ 024 11:27 AM EDT documented as of this encounter Care Teams Mathematics Academic Chair Relationship Specialty Start Date End Date Ginger Perez FNP [address] [place] [address] [place] [address] PCP - General Family Medicine 08/13/22 [facility] [place] Care 11/01/22 documented as of this encounter
--- OUTSIDE RECORDS SUMMARY | 2025-06-02 16:12 | XMS_ITS | Encounter Summary ---
Author Organization [employer] Address [address] [facility] 7[address] [place] [address] Care Team Providers Care Manager Mobility Name Role Phone [facility] Primary Care Provider [phone] Reason for Visit * Reason Comments Med Refill Encounter Details Date Type Department Care Team ([facility] st Contact Info) Description 05/22/2024 Refill [facility] [address] [place], [place] [phone] [facility] [address] [place] [address] Low back pain at multiple sites Social [...] PM EDT Clinical Support [facility] [address] [place] [address] Frida Knapp RN 06/08/2025 10:20 AM EDT Office Visit [facility] OPT[facility] [address] [place] [address] 07/12/2025 2:00 PM EST Office Visit [facility] [address] [place] [address] Ginger Perez FNP [address] [place] [address] documented as of this encounter Visit Diagnoses Diagnosis Low back pain at multiple sites documented in this encounter Additional Health Concerns Assessment Noted Time PHQ-9 Depression Total Score: 13 024 11:27 AM EDT documented as of this encounter Care Teams Manager Mobility Relationship Specialty Start Date End Date Ginger Perez FNP [address] [place] [address] PCP - General Family Medicine 08/13/22 [facility] Home Care 11/01/22 documented as of this encounter
--- OUTSIDE RECORDS SUMMARY | 2025-06-02 16:12 | XMS_ITS | Encounter Summary ---
Author Organization [employer] Address 75 [facility] 7[address] [place] [address] Care Team Providers Care Heel Burnisher Name Role Phone [place] [facility] Primary Care Provider [phone] Reason for Visit * Reason Onset Date Comments Referral 07/19/2023 Encounter Details Date Type Department Care Team ([facility] st Contact Info) Description 07/19/2023 Telephone [facility] [address] [place] [address] [place] [facility] [address] [place] [address] Referral Social History Tobacco Use Types Packs/Day [...] PM EDT Sexual Orientation Something else 11/20/2022 2 :47 PM EDT documented as of this encounter Miscellaneous Notes * Telephone Encounter - Ruma Tabor - 07/19/2023 10:29 AM EST Tc from sarah with [facility] states [facility] has not received referral. Also requesting for referral to be sent to a different location due to no availability. Any questions, contact sarah at [phone] documented in this encounter Plan of Treatment Upcoming Encounters Date Type Department Care Team (Late st Contact Info) Description 06/07/2025 1:00 PM EDT Clinical Support [facility] [address] [place] [address] Frida Knapp, RN 06/08/2025 10:20 AM EDT Office Visit [facility] OPTOMETRY [address] [place] [address] 07/12/2025 2:00 PM EST Office Visit [facility] [address] [place] [address] Ginger Perez FNP [address] [place] [address] documented as of this encounter Visit Diagnoses Not on filedocumented in this encounter Additional Health Concerns Assessment Noted Time PHQ-9 Depression Total Score: 16 023 9:09 AM EDT documented as of this encounter Care Teams Heel Burnisher Relationship Specialty Start Date End Date Ginger Perez FNP [address] [place] [address] PCP - General Family Medicine 08/13/22 [facility] [place] 11/01/22 documented as of this encounter
--- OUTSIDE RECORDS SUMMARY | 2025-06-02 16:12 | XMS_ITS | Encounter Summary ---
Author Organization [facility] Address [address] [facility] [address] [place] [address] Phone Care Team Providers Care Counter Manager Name Role Phone Guille Valentine NP Primary Care Provider [phone] Reason for Referral * Consultation (Elective) - Closed Specialty Diagnoses / Procedures Referred By Contjaden bingham Referred To Contact Neurology Diagnoses Tremor System, Provider Not In, [facility] [address] [address] Phone: tel: Referral ID Status Reason Start Date Expiration Date Visits Re quested Visits Authorized [id number] Closed 08/11/2020 08/11/2021 1 1 Encounter Details Date Type Department Care Team (Late st Contact Info) Description 08/11/2020 Transcribe Orders [facility] Department of Neurology [address] [place] [address], [address] Floor, [address] [place] [address] System, Provider Not In, [place] [address] Tremor (Primary Dx) Social History Tobacco Use [...] Associated Diagnoses Order Schedule Ambulatory referral to [facility] Neurology Outpatient Referral Routine Tremor Ordered: 08/11/2020 documented as of this encounter Visit Diagnoses Diagnosis Tremor- Primary Abnormal involuntary movements documented in this encounter Care Teams Counter Manager Relationship Specialty Start Date End Date Guille Valentine NP [address] [place] [address] PCP - General Family Medicine 07/03/19 documented as of this encounter Additional Source Comments The information contained in this document represents components of the legal health record. It is not the complete legal health record.[facility]
--- OUTSIDE RECORDS SUMMARY | 2025-06-02 16:12 | XMS_ITS | Encounter Summary ---
Author Organization [employer] Address 75 [facility] 7t [place] [address] Care Team Providers Care Character Impersonator Name Role Phone [facility] Primary Care Provider [phone] Reason for Visit * Reason Comments Med Refill Encounter Details Date Type Department Care Team ([facility] st Contact Info) Description 05/22/[address] [facility] 230 [place] [address] Roma Man MD 230 [place] [address] Onychomycosis Social History Tobacco Use Types Packs/Day [...] the past 12 months, has t he [employer] gas, oil or water company threatened to [...] Description 06/07/2025 1:00 PM EDT Clinical Support [facility] [address] [place] [address] Frida Knapp RN 06/08/2025 10:20 AM EDT Office Visit [facility] [address] [place] [address] 07/12/2025 2:00 PM EST Office Visit [facility] 230 [place] [address] [address] documented as of this encounter Visit Diagnoses Diagnosis Onychomycosis Dermatophytosis of nail documented in this encounter Additional Health Concerns Assessment Noted Time PHQ-9 Depression Total Score: 13 024 11:27 AM EDT documented as of this encounter Care Teams Character Impersonator Relationship Specialty Start Date End Date Ginger Perez [facility] [address] [place] [address] PCP - General Family Medicine 08/13/22 [facility] 11/01/22 documented as of this encounter
--- OUTSIDE RECORDS SUMMARY | 2025-06-02 16:12 | XMS_ITS | Encounter Summary ---
Author Organization [employer] Address 75 [facility] 7[address] [place] [address] Care Team Providers Care Retail Leasing Agent Name Role Phone [facility] Primary Care Provider [phone] Reason for Visit * Reason Comments Med Refill Encounter Details Date Type Department Care Team ([facility] st Contact Info) Description 05/12/2025 Refill [facility] [address] [place], [place] [phone] [facility] [address] [place] [address] Social History Tobacco Use Types Packs/Day Years [...] Description 06/07/2025 1:00 PM EDT Clinical Support [facility] [address] [place] [address] Frida Knapp RN 06/08/2025 10:20 AM EDT Office Visit [facility] OPT[facility] [address] [place] [address] 07/12/2025 2:00 PM EST Office Visit [facility] [address] [place] [address] Ginger Perez FNP 230 [place] [address] documented as of this encounter Visit Diagnoses Not on filedocumented in this encounter Additional Health Concerns Assessment Noted Time PHQ-9 Depression Total Score: 13 024 11:27 AM EDT documented as of this encounter Care Teams Retail Leasing Agent Relationship Specialty Start Date End Date Ginger Perez FNP [address] [place] [address] PCP - General Family Medicine 08/13/22 [facility] Home Care 11/01/22 documented as of this encounter
--- OUTSIDE RECORDS SUMMARY | 2025-06-02 16:13 | XMS_ITS | Encounter Summary ---
Author Organization [employer] Address [address] [facility] [address] [place] [address] Care Team Providers Care Color Worker Name Role Phone [facility] Primary Care Provider [phone] Reason for Visit * Reason Onset Date Comments Nurse Triage 08/18/2024 Encounter Details Date Type Department Care Team ([facility] st Contact Info) Description 08/18/2024 Telephone [facility] [address] [place] [address] [facility] 230 [place] [address] Nurse Triage Social History Tobacco Use Types [...] AM EST Tc from pt returning call [phone] * Telephone Encounter - Francie Au RN - 08/18/2024 11:47 AM EST Triage call Pt reports abnormal vaginal bleeding which has been occurring for last several months. Pt reports spotting started yesterday and usually this is gone in a day. This time it is the second day of this spotting and drainage is black in color. Pt denies any other symptoms. Pt reports DOCKETING SPECIALIST advised to call to see provider. ASK [...] 1:00 PM EDT Clinical Support [facility] MED[facility] [address] [place] [address] Frida Knapp RN 06/08/2025 10:20 AM EDT Office Visit [facility] OPT[facility] [address] [place] [address] 07/12/2025 2:00 PM EST Office Visit [facility] MED[facility]INE [address] [place] [address] Ginger Perez FNP 230 [place] [address] documented as of this encounter Visit Diagnoses Not on filedocumented in this encounter Additional Health Concerns Assessment Noted Time PHQ-9 Depression Total Score: 13 024 11:27 AM EDT documented as of this encounter Care Teams Color Worker Relationship Specialty Start Date End Date Ginger Perez FNP 230 [place] [address] PCP - General Family Medicine 08/13/22 [facility] Home Care 11/01/22 documented as of this encounter
--- OUTSIDE RECORDS SUMMARY | 2025-06-02 16:13 | XMS_ITS | Encounter Summary ---
Author Organization [employer] Address [address] [facility] [address] [place] [address] Care Team Providers Care Supervisor Hydrochloric Area Name Role Phone [place] [facility] Primary Care Provider [phone] Reason for Visit * Reason Onset Date Comments Durable Medical Equipment 12/18/2022 Encounter Details Date Type Department Care Team ([facility] st Contact Info) Description 12/18/2022 Telephone [facility] [address] [place] [address] [facility] [address] [place] [address] Durable Medical Equipment Social History Tobacco Use [...] the largest size for disposable bed pads. [employer] suggested a script for reusable bed pads [...] 1:00 PM EDT Clinical Support [facility] [address] [place] [address] Frida Knapp RN 06/08/2025 10:20 AM EDT Office Visit [facility] OPTOMETRY [address] [place] [address] 07/12/2025 2:00 PM EST Office Visit [facility] MED[facility] [address] [place] [address] Ginger Perez FNP 230 [place] [address] documented as of this encounter Visit Diagnoses Not on filedocumented in this encounter Additional Health Concerns Assessment Noted Time PHQ-9 Depression Total Score: 0 12/12/19 3:58 PM EDT documented as of this encounter Care Teams Supervisor Hydrochloric Area Relationship Specialty Start Date End Date Ginger Perez FNP 230 [place] [address] PCP - General Family Medicine 08/13/22 [facility] Home Care 11/01/22 documented as of this encounter
--- OUTSIDE RECORDS SUMMARY | 2025-06-02 16:13 | XMS_ITS | Encounter Summary ---
Author Organization [employer] Address [address] [facility] [address] [place] [address] Care Team Providers Care Hedis Registered Nurse Rn Name Role Phone FilionGinger canales [facility] Primary Care Provider [phone] Encounter Details Date Type Department Care Team ([facility] st Contact Info) Description 04/19/2025 Telephone [facility] 230 [place], [place] [phone] [facility] 230 [place], [place] [phone] Social History Tobacco Use Types Packs/Day Years [...] Description 06/07/2025 1:00 PM EDT Clinical Support [facility] 230 [place] [address] Frida Knapp RN 06/08/2025 10:20 AM EDT Office Visit [facility] OPTOMETRY [address] [place] [address] 07/12/2025 2:00 PM EST Office Visit [facility] 230 [place] [address] Ginger Perez FNP [address] [place] [address] documented as of this encounter Visit Diagnoses Not on filedocumented in this encounter Additional Health Concerns Assessment Noted Time PHQ-9 Depression Total Score: 13 024 11:27 AM EDT documented as of this encounter Care Teams Hedis Registered Nurse Rn Relationship Specialty Start Date End Date Ginger Perez FNP [address] [place] [address] PCP - General Family Medicine 08/13/22 [facility] Home Care 11/01/22 documented as of this encounter
--- OUTSIDE RECORDS SUMMARY | 2025-06-02 16:13 | XMS_ITS | Encounter Summary ---
Author Organization [employer] Address [address] [facility] [address] [address] Care Team Providers Care Bottle Label Inspector Name Role Phone [facility] Primary Care Provider [phone] Reason for Visit * Reason Onset Date Comments Durable Medical Equipment 05/31/2025 Encounter Details Date Type Department Care Team ([facility] st Contact Info) Description 05/31/2025 Telephone [facility] [address] [place] [address] [facility] 230 [place] [address] Durable Medical Equipment Social History Tobacco Use [...] encounter Miscellaneous Notes * Telephone Encounter - Michelle Benavides - 05/31/2025 10:19 AM EDT Tc joseph Bui requesting a new scrip for DME - adult diapers size Large - bilateral forearm crutches - bilateral knee braces fro both knees documented in this encounter Plan of Treatment Upcoming Encounters Date Type Department Care Team (Late st Contact Info) Description 06/07/2025 1:00 PM EDT Clinical Support [facility] 230 [place] [address] Frida Knapp RN 06/08/2025 10:20 AM EDT Office Visit [facility] OPT[facility] [address] [place] [address] 07/12/2025 2:00 PM EST Office Visit [facility] 230 [place] [address] CrittendenGinger FNP [address] [place] [address] documented as of this encounter Visit Diagnoses Not on filedocumented in this encounter Additional Health Concerns Assessment Noted Time PHQ-9 Depression Total Score: 13 024 11:27 AM EDT documented as of this encounter Care Teams Bottle Label Inspector Relationship Specialty Start Date End Date Ginger Perez FNP [address] [place] [address] PCP - General Family Medicine 08/13/22 [facility] 11/01/22 documented as of this encounter
--- OUTSIDE RECORDS SUMMARY | 2025-06-02 16:13 | XMS_ITS | Encounter Summary ---
Author Organization [employer] Address [address] [facility] 7t [place] [address] Care Team Providers Care Parts Salesman Name Role Phone Ana [facility] Primary Care Provider [phone] Encounter Details Date Type Department Care Team ([facility] st Contact Info) Description 12/30/2024 Orders Only [facility] MED [facility] PEDS [address] [place], [place] [phone] Mary Gu Social History Tobacco Use Types [...] Description 06/07/2025 1:00 PM EDT Clinical Support [facility] MEDICINE [address] [place] [address] Frida Knapp RN 06/08/2025 10:20 AM EDT Office Visit [facility] OPTOMETRY [address] [place] [address] 07/12/2025 2:00 PM EST Office Visit [facility] MEDICINE [address] [place] [address] [place] [facility] 230 [place] [address] documented as of this encounter Procedures Procedure [...] Noted Time PHQ-9 Depression Total Score: 13 07/15/2 024 11:27 AM EDT documented as of this encounter Care Teams Parts Salesman Relationship Specialty Start Date End Date Ginger Perez FNP [address] [place] [address] PCP - General Family Medicine 08/13/22 [facility] Home Care 11/01/22 documented as of this encounter
--- OUTSIDE RECORDS SUMMARY | 2025-06-02 16:13 | XMS_ITS | Encounter Summary ---
Author Organization [employer] Address [address] [facility] [address] [place] [address] Care Team Providers Care Sample Preparation Supervisor Name Role Phone [place] [facility] Primary Care Provider [phone] Encounter Details Date Type Department Care Team (Late Contact Info) Description 08/22/2022 Refill [facility] [address] [place], [place] [phone] [place] [facility] 230 [place] [address] Muscle spasm Social History Tobacco Use Types [...] EDT Clinical Support [facility] MED[facility]INE [address] [place] [address] Frida Knapp RN 06/08/2025 10:20 AM EDT Office Visit [facility] OPTOMETRY [address] [place] [address] 07/12/2025 2:00 PM EST Office Visit [facility] 230 [facility] [place] [address] Ginger Perez FNP [address] [place] [address] documented as of this encounter Visit Diagnoses Diagnosis Muscle spasm Spasm of muscle documented in this encounter Additional Health Concerns Assessment Noted Time PHQ-9 Depression Total Score: 9 08/21/20 10:14 AM EST documented as of this encounter Care Teams Sample Preparation Supervisor Relationship Specialty Start Date End Date Ginger Perez FNP [address] [place] [address] PCP - General Family Medicine 08/13/22 [facility] Home Care 11/01/22 documented as of this encounter
--- OUTSIDE RECORDS SUMMARY | 2025-06-02 16:13 | XMS_ITS | Encounter Summary ---
Author Organization [employer] Address [address] [facility] [address] [place] [address] Care Team Providers Care Charter Driver Name Role Phone Ana [facility] Primary Care Provider [phone] Encounter Details Date Type Department Care Team ([facility] st Contact Info) Description 12/20/2022 Telephone [facility] 230 [place], [place] [phone] [facility] 230 [place], [place] [phone] Social History Tobacco Use Types Packs/Day Years [...] - 12/20/2022 4:16 PM EDT [facility] status on orders that needed to be sign by PCP on oct Please [facility] at [phone] documented in this encounter Plan of Treatment Upcoming Encounters Date Type Department Care Team (Late st Contact Info) Description 06/07/2025 1:00 PM EDT Clinical Support [facility] [address] [place] [address] Frida Knapp RN 06/08/2025 10:20 AM EDT Office Visit [facility] OPTOMETRY [address] [place] [address] 07/12/2025 2:00 PM EST Office Visit [facility] MED[facility] [address] [place] [address] Ginger Perez FNP 230 [place] [address] documented as of this encounter Visit Diagnoses Not on filedocumented in this encounter Additional Health Concerns Assessment Noted Time PHQ-9 Depression Total Score: 0 12/12/19 3:58 PM EDT documented as of this encounter Care Teams Charter Driver Relationship Specialty Start Date End Date Ginger Perez FNP 230 [place] [address] PCP - General Family Medicine 08/13/22 [facility] Home Care 11/01/22 documented as of this encounter
--- OUTSIDE RECORDS SUMMARY | 2025-06-02 16:13 | XMS_ITS | Encounter Summary ---
Author Organization [employer] Address [address] [facility] 7t [place] [address] Care Team Providers Care Emergency Department Aide Name Role Phone Ana [facility] Primary Care Provider [phone] Reason for Visit * Reason Comments Med Refill Encounter Details Date Type Department Care Team ([facility] st Contact Info) Description 05/11/2024 Refill [facility] [address] [place] [address] Roma Man MD 230 [place] [address] Onychomycosis Social History Tobacco Use Types Packs/Day [...] the past 12 months, has t he [employer], gas, oil or water company threatened to [...] Support [facility] [address] [place] [address] Frida Knapp RN 06/08/2025 10:20 AM EDT Office Visit [facility] OPTOMETRY [address] [place] [address] 07/12/2025 2:00 PM EST Office Visit [facility] MED[facility] [address] [place] [address] [address] documented as of this encounter Visit Diagnoses Diagnosis Onychomycosis Dermatophytosis of nail documented in this encounter Additional Health Concerns Assessment Noted Time PHQ-9 Depression Total Score: 13 024 11:27 AM EDT documented as of this encounter Care Teams Emergency Department Aide Relationship Specialty Start Date End Date Ginger Perez [facility] [address] [place] [address] PCP - General Family Medicine 08/13/22 [facility] Home Care 11/01/22 documented as of this encounter
--- OUTSIDE RECORDS SUMMARY | 2025-06-02 16:13 | XMS_ITS | Encounter Summary ---
Demographics Address [address] [facility] [address] [place] [address] Mobile Phone Work Phone Home Phone Email Address Preferred Language en Marital Status Single Muslim Affiliation Unknown Race Other Race Ethnic Group Unknown Author Organization [employer] Address [address] [facility] 7t [place] [address] Care Team Providers Care Electronics Worker Name Role Phone Ana [facility] Primary Care Provider [phone] Encounter Details Date Type Department Care Team (Late st Contact Info) Description 12/22/2024 Orders Only [facility] [address] [place], [place] [phone] ProviderDalton MD Social History Tobacco Use Types [...] know I am going to refer to SATELLITE INSTALLATION TECHNICIAN for further evaluation. Thanks! documented in this encounter Plan of Treatment Upcoming Encounters Date Type Department Care Team (Late st Contact Info) Description 06/07/2025 1:00 PM EDT Clinical Support [facility] MEDICINE [address] [place] [address] Frida Knapp, OZZY 06/08/2025 10:20 AM EDT Office Visit [facility] OPTOMETRY [address] [place] [address] 07/12/2025 2:00 PM EST Office Visit [facility] MED[facility]INE 230 [place] [address] Ginger Perez FNP [address] [place] [address] documented as of this encounter Procedures Procedure [...] documented as of this encounter Care Teams Electronics Worker Relationship Specialty Start Date End Date Ginger Perez FNP [address] [place] [address] PCP - General Family Medicine 08/13/22 [facility] [place] Home Care 11/01/22 documented as of this encounter
--- OUTSIDE RECORDS SUMMARY | 2025-06-02 16:13 | XMS_ITS | Encounter Summary ---
Demographics Address [address] [facility] [address] [place] [address] Mobile Phone Work Phone Home Phone Email Address Preferred Language en Marital Status Single Restorationism Affiliation Unknown Race Other Race Ethnic Group Unknown Author Organization [employer] Address [address] [facility] 7t [place] [address] Care Team Providers Care Broom Bundler Name Role Phone Gingre Perez [facility] Primary Care Provider [phone] Encounter Details Date Type Department Care Team (Late st Contact Info) Description 06/02/2025 Orders Only GENERIC EXTERNAL DATA DEPARTMENT Provider, [...] Description 06/07/2025 1:00 PM EDT Clinical Support [facility] MEDICINE [address] [place] [address] Frida Knapp, OZZY 06/08/2025 10:20 AM EDT Office Visit [facility] OPTOMETRY [address] [place] [address] 07/12/2025 2:00 PM EST Office Visit [facility] MEDICINE [address] [place] [address] [facility], [facility] 230 [place] [address] documented as of this encounter Procedures Procedure Name Priority Date/Time Associated Diagnosis Comments GLUCOSE, WHOLE BLOOD Routine 06/02/2025 3:36 PM EDT documented in this encounter Results * Glucose, Whole Blood (06/02/2025 3:36 PM EDT) Glucose, Whole Blood 84 60 - 115 mg/dL [facility] Comment:METER #: [id number] 0Testing performed in the Endocrinology Department [address] , [address], [facility]. 06/02/2025 3:36 PM EDT 06/02/2025 3:43 PM EDT us Generic External Data Provider LAB BLOOD ORDERAB LES Final Result [facility] [address] [place] [address] [phone] documented in this encounter Visit Diagnoses Not on filedocumented in this encounter Additional Health Concerns Assessment Noted Time PHQ-9 Depression Total Score: 13 024 11:27 AM EDT documented as of this encounter Care Teams Broom Bundler Relationship Specialty Start Date End Date Ginger Perez FNP [address] [place] [address] PCP - General Family Medicine 08/13/22 [facility] Home Care 11/01/22 documented as of this encounter
--- OUTSIDE RECORDS SUMMARY | 2025-06-02 16:13 | XMS_ITS | Clinical Summary ---
Author Organization [address] [facility] Address [address] [place] [address] Phone Care Team Providers Care Fish Housekeeper Name Role Phone [facility] Primary Care Provider [phone] Allergies Active Allergy Reactions Criticality Noted Date [...] 180 tablet 1 01/28/20 25 025 Discontinued Active Problems Problem Noted [...] Overview (02/16/2025): Compliant with BiPAP Followed by [facility] neurology and sleep clinic. Dr. 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 EEG's normal. Per neurology notes, possible dyskenisa s/t hx of antipsychotic medications which patient is no longer taking. Not currently taking any anti- seizure medications. No seizure episodes >2 months. Episodes triggered by emotional stress. Chronic post-traumatic stress disorder 0 Diabetes mellitus ([facility] V24, [facility] V28) Headache 05/25/2020 Essential hypertension 05/25/2020 Mixed hyperlipidemia 05/25/2020 Seizures ([facility] V24, [facility] V28) 05/25/2020 Coarse tremors 11/12/2019 [...] Team Description 04/15/2025 Telephone Bariatric Surgery - [address] [place] [address] Omer Beaver MD from Last 3 Months Surgical History Surgery Date Site/Laterality Comments LAPAROSCOPIC GASTRIC BANDING 2011 and 01/15/2014 PROCEDURE: LAP ADJUSTABLE GASTRIC BAND; COMMENT: first band slipped, was replaced Medical History Medical History Date Comments Anxiety DX:Anxiety Asthma DX:Asthma Depression DX:Depression Diabetes mellitus type 2, uncomplicated ([facility] V24, [facility] V28) DX:Diabetes mellitus type 2, uncomplicated ([facility]) Hypertension DX:Hypertension LAP-BAND surgery status 12/02/2018 DX:LAP-B AND surgery status; COMMENT: x2 Morbid obesity with BMI of 5 0.0-59.9, adult ([facility] V24, [facility] V28) 12/02/2018 DX:Morbid obesity wit h BMI of 50.0-59.9, adult ([facility]) VELASQUEZ (obstructive sleep apnea) DX :VELASQUEZ (obstructive sleep apnea) Seizures ([facility] V24, [facility] V28) DX:Seizures ([facility]) Covid-19 DX:COVID-19; COM MENT: patient reports no [...] PM EST Office Visit Bariatric Surgery - [address] [place] [address] Omer Beaver MD [address] [place] [phone] Health Maintenance Due Date Last Done Comments Breast Cancer Screening 1965 Colorectal Cancer Screening: Colonoscopy 1963 Diabetes: Annual Foot Exam 1973 Diabetes: Annual Retina Eye Exam 1973 Hepatitis B Vaccines (3 of 3 - 19+ 3-dose series) 11/04/2019 06/25/2019, 05/06/2019 Zoster Vaccines (2 of 2) 06/07/2023 04/12/2023 RSV Immunization Adult Patients (1 - Risk 60-74 years 1-dose series) 2023 Diabetes: Annual Urine Albumin-Creatinine Ratio (uACR) 03/31/2024 [...] topic Insurance MEDICAID - [place] Care Teams Fish Housekeeper Relationship Specialty Start Date End Date [facility] [address] [phone] PCP - General 12/18/23
--- OUTSIDE RECORDS SUMMARY | 2025-06-02 16:13 | XMS_ITS | Encounter Summary ---
Author Organization [employer] Address [address] [facility] [address] [place] [address] Care Team Providers Care Land Department Head Name Role Phone [facility] Primary Care Provider [phone] Reason for Visit * Reason Onset Date Comments Call Back Request 10/09/2024 Encounter Details Date Type Department Care Team ([facility] st Contact Info) Description 10/09/2024 Telephone [facility] MED[facility] [address] [place] [address] [facility] 230 [place] [address] Call Back Request Social History Tobacco Use [...] the past 12 months, has t he [employer], gas, oil or water [employer] threatened to shut off services in your [...] refuses to perform it. Any questions contact: [phone] documented in this encounter Plan of Treatment Upcoming Encounters Date Type Department Care Team (Late st Contact Info) Description 06/07/2025 1:00 PM EDT Clinical Support [facility] MEDICINE [address] [place], [place] [phone] Frida Knapp RN 06/08/2025 10:20 AM EDT Office Visit [facility] OPTOMETRY [address] [place] [address] 07/12/2025 2:00 PM EST Office Visit [facility] MEDICINE [address] [place] [address] Ginger Perez FNP [address] [place] [address] documented as of this encounter Visit Diagnoses Not on filedocumented in this encounter Additional Health Concerns Assessment Noted Time PHQ-9 Depression Total Score: 13 024 11:27 AM EDT documented as of this encounter Care Teams Land Department Head Relationship Specialty Start Date End Date Ginger Perez FNP 230 [place] [address] PCP - General Family Medicine 08/13/22 [facility] Home Care 11/01/22 documented as of this encounter
--- OUTSIDE RECORDS SUMMARY | 2025-06-02 16:13 | XMS_ITS | Encounter Summary ---
Author Organization [employer] Address 75 [facility] [address] [place] [address] Care Team Providers Care Oil Pumper Name Role Phone [facility] Primary Care Provider [phone] Reason for Visit * Reason Onset Date Comments Durable Medical Equipment 11/12/2024 Encounter Details Date Type Department Care Team ([facility] st Contact Info) Description 11/12/[address] [facility] MEDICINE [address] [place] [address] [facility] [address] [place] [address] Durable Medical Equipment Social History Tobacco Use [...] other 2 boxes that was never received. [phone] * Telephone Encounter - Jazzmine Dukes - 11/12/2024 2:57 PM EDT Tc from pt stating received two boxes of vanilla ensure and normally she received four boxes. documented in this encounter Plan of Treatment Upcoming Encounters Date Type Department Care Team (Late st Contact Info) Description 06/07/2025 1:00 PM EDT Clinical Support [facility] MEDICINE [address] [place] [address] Frida Knapp RN 06/08/2025 10:20 AM EDT Office Visit [facility] OPTOMETRY [address] [place] [address] 07/12/2025 2:00 PM EST Office Visit [facility] MEDICINE [address] [place] [address] Ginger Perez FNP [address] [place] [address] documented as of this encounter Visit Diagnoses Not on filedocumented in this encounter Additional Health Concerns Assessment Noted Time PHQ-9 Depression Total Score: 13 024 11:27 AM EDT documented as of this encounter Care Teams Oil Pumper Relationship Specialty Start Date End Date Ginger Perez FNP [address] [place] [address] PCP - General Family Medicine 08/13/22 [facility] Home Care 11/01/22 documented as of this encounter
--- OUTSIDE RECORDS SUMMARY | 2025-06-02 16:13 | XMS_ITS | Encounter Summary ---
Author Organization [employer] Address 75 [facility] [address] [place] [address] Care Team Providers Care Machine I Cutter Name Role Phone [facility] Primary Care Provider [phone] Reason for Visit * Reason Onset Date Comments Nurse Triage 10/07/2023 Encounter Details Date Type Department Care Team ([facility] st Contact Info) Description 10/07/2023 Telephone [facility] MEDICINE [address] [place] [address] [facility] [address] [place] [address] Nurse Triage Social History Tobacco Use Types [...] 10/07/2023 3:17 PM EST TC placed to [facility] CS, Ct scan rescheduled [...] still having kidney pain . Patient speaks Bahraini. Advised triage nurse will call patient back. documented in this encounter Plan of Treatment Upcoming Encounters Date Type Department Care Team (Late st Contact Info) Description 06/07/2025 1:00 PM EDT Clinical Support [facility] MEDICINE [address] [place] [address] Frida Knapp, RN 06/08/2025 10:20 AM EDT Office Visit [facility] OPTOMETRY [address] [place] [address] 07/12/2025 2:00 PM EST Office Visit [facility] MEDICINE [address] [place] [address] Ginger Perez FNP [address] [place] [address] documented as of this encounter Visit Diagnoses Not on filedocumented in this encounter Additional Health Concerns Assessment Noted Time PHQ-9 Depression Total Score: 0 10/03/19 24 10:12 AM EST documented as of this encounter Care Teams Machine I Cutter Relationship Specialty Start Date End Date Ginger Perez FNP [address] [place] [address] PCP - General Family Medicine 08/13/22 [facility] [place] [place] 11/01/22 documented as of this encounter
--- OUTSIDE RECORDS SUMMARY | 2025-06-02 16:13 | XMS_ITS | Encounter Summary ---
Author Organization [employer] Address 75 [facility] [address] [place] [address] Care Team Providers Care Wool Shearer Name Role Phone [facility] Primary Care Provider [phone] Reason for Visit * Reason Comments Med Refill Encounter Details Date Type Department Care Team ([facility] st Contact Info) Description 11/22/2023 Refill [facility] MEDICINE [address] [place], [place] [phone] [facility] [address] [place] [address] Type 2 diabetes mellitus with hyperglycemia, with long-term current use of insulin ([facility]) Social History Tobacco Use Types Packs/Day Years [...] Description 06/07/2025 1:00 PM EDT Clinical Support [facility] MEDICINE [address] [place] [address] Frida Knapp RN 06/08/2025 10:20 AM EDT Office Visit [facility] OPTOMETRY [address] [place] [address] 07/12/2025 2:00 PM EST Office Visit [facility] MEDICINE [address] [place] [address] Ginger Perez FNP [address] [place] [address] documented as of this encounter Visit Diagnoses Diagnosis Type 2 diabetes mellitus with hyperglycemia, with long-term current use of insulin (HCC) documented in this encounter Additional Health Concerns Assessment Noted Time PHQ-9 Depression Total Score: 0 11/13/19 24 3:08 PM EDT documented as of this encounter Care Teams Wool Shearer Relationship Specialty Start Date End Date Ginger Perez FNP [address] [place] [address] PCP - General Family Medicine 08/13/22 [facility] [place] 11/01/22 documented as of this encounter
--- OUTSIDE RECORDS SUMMARY | 2025-06-02 16:13 | XMS_ITS | Encounter Summary ---
Author Organization [employer] Address 75 [facility] [address] [place] [address] Care Team Providers Care Recovery Agent Name Role Phone [place] [facility] Primary Care Provider [phone] Reason for Visit * Reason Onset Date Comments Durable Medical Equipment 12/18/2022 Encounter Details Date Type Department Care Team ([facility] st Contact Info) Description 12/18/2022 Telephone [facility] MEDICINE [address] [place] [address] [facility] [address] [place] [address] Durable Medical Equipment Social History Tobacco Use [...] 2:22 PM EDT Tc from sarah from [facility] requesting a new nebulizer machine . States pt informed old one stopped working . documented in this encounter Plan of Treatment Upcoming Encounters Date Type Department Care Team (Late st Contact Info) Description 06/07/2025 1:00 PM EDT Clinical Support [facility] MEDICINE [address] [place] [address] Frida Knapp RN 06/08/2025 10:20 AM EDT Office Visit [facility] OPTOMETRY [address] [place] [address] 07/12/2025 2:00 PM EST Office Visit [facility] MEDICINE [address] [place] [address] Ginger Perez FNP [address] [place] [address] documented as of this encounter Visit Diagnoses Not on filedocumented in this encounter Additional Health Concerns Assessment Noted Time PHQ-9 Depression Total Score: 0 12/12/19 23 3:58 PM EDT documented as of this encounter Care Teams Recovery Agent Relationship Specialty Start Date End Date Ginger Perez FNP [address] [place] [address] PCP - General Family Medicine 08/13/22 [facility] [place] 11/[place]/22 documented as of this encounter
--- OUTSIDE RECORDS SUMMARY | 2025-06-02 16:13 | XMS_ITS | Encounter Summary ---
Author Organization [employer] Address [address] [place] [address] 7[address] [place] [address] Care Team Providers Care Solar Process Engineer Name Role Phone Ginger Perez [facility] Primary Care Provider [phone] Encounter Details Date Type Department Care Team ([facility] st Contact Info) Description 02/21/2023 Telephone [facility] MEDICINE 230 [place], [place] [phone] [facility] 230 [place], [place] [phone] Social History Tobacco Use Types Packs/Day Years [...] - 02/25/2023 9:57 AM EDT T/C to [phone] for below message, No answer. LVM to call back on [phone]. As per last message , PCP referred pt. For Physical therapy evaluation. * Telephone Encounter - Mirta Vladimri - 02/21/2023 3:11 PM EDT Tc from [facility] requesting a script for Albuterol for nebulize machine. Lead Javascript Developer check on med list but nothing. Also [facility] requesting a referral for Occupational Therapy and Physical Therapy in home. To contact [facility] at [phone] Perez documented in this encounter Plan of Treatment Upcoming Encounters Date Type Department Care Team (Late st Contact Info) Description 06/07/2025 1:00 PM EDT Clinical Support [facility] MEDICINE [address] [place] [address] Frida Knapp, RN 06/08/2025 10:20 AM EDT Office Visit [facility] OPTOMETRY [address] [place] [address] 07/12/2025 2:00 PM EST Office Visit [facility] MEDICINE [address] [place] [address] Gingre Perez FNP [address] [place] [address] documented as of this encounter Visit Diagnoses Not on filedocumented in this encounter Additional Health Concerns Assessment Noted Time PHQ-9 Depression Total Score: 9 01/25/20 23 1:11 PM EDT documented as of this encounter Care Teams Solar Process Engineer Relationship Specialty Start Date End Date Ginger Perez FNP [address] [place] [address] PCP - General Family Medicine 08/13/22 [facility] Home Care 11/01/22 documented as of this encounter
--- OUTSIDE RECORDS SUMMARY | 2025-06-02 16:13 | XMS_ITS | Encounter Summary ---
Author Organization [employer] Address 75 [facility] 7[address] [place] [address] Care Team Providers Care Gis Engineer Name Role Phone Ginger Perez [facility] Primary Care Provider [phone] Reason for Visit * Reason Comments Med Refill Encounter Details Date Type Department Care Team (Late st Contact Info) Description 05/26/2025 Refill [facility] MEDICINE [address] [place], [place] [phone] Donna Dow, 230 [place], [place] [phone] Constipation, unspecified constipation type Social History Tobacco Use Types Packs/Day Years [...] EDT Clinical Support [facility] MEDICINE [address] [place] [address] Frida Knapp RN 06/08/2025 10:20 AM EDT Office Visit [facility] OPTOMETRY [address] [place] [address] 07/12/2025 2:00 PM EST Office Visit [facility] MEDICINE [address] [place] [address] Ginger Perez FNP [address] [place] [address] documented as of this encounter Visit Diagnoses Diagnosis Constipation, unspecified constipation type documented in this encounter Additional Health Concerns Assessment Noted Time PHQ-9 Depression Total Score: 13 024 11:27 AM EDT documented as of this encounter Care Teams Gis Engineer Relationship Specialty Start Date End Date Ginger Perez FNP [address] [place] [address] PCP - General Family Medicine 08/13/22 [facility] [place] 11/01/22 documented as of this encounter
--- OUTSIDE RECORDS SUMMARY | 2025-06-02 16:13 | XMS_ITS | Encounter Summary ---
Author Organization [employer] Address [address] [facility] [address] [place] [address] Care Team Providers Care Precision Inspector Name Role Phone Ginger Perez [facility] Primary Care Provider [phone] Reason for Visit * Reason Comments Med Refill Encounter Details Date Type Department Care Team (Late st Contact Info) Description 01/14/2025 Refill [facility] MEDICINE 230 [place], [place] [phone] Donna Dow, [address] [place], [place] [phone] Mixed anxiety and depressive disorder Social History [...] Description 06/07/2025 1:00 PM EDT Clinical Support [facility] MEDICINE [address] [place] [address] Frida Knapp RN 06/08/2025 10:20 AM EDT Office Visit [facility] OPTOMETRY [address] [place] [address] 07/12/2025 2:00 PM EST Office Visit [facility] MEDICINE [address] [place] [address] Ginger Perez FNP [address] [place] [address] documented as of this encounter Visit Diagnoses Diagnosis Mixed anxiety and depressive disorder Dysthymic disorder documented in this encounter Additional Health Concerns Assessment Noted Time PHQ-9 Depression Total Score: 13 024 11:27 AM EDT documented as of this encounter Care Teams Precision Inspector Relationship Specialty Start Date End Date Ginger Perez FNP [address] [place] [address], [place] [address] PCP - General Family Medicine 08/13/22 [facility] Home Care 11/01/22 documented as of this encounter
--- OUTSIDE RECORDS SUMMARY | 2025-06-02 16:13 | XMS_ITS | Encounter Summary ---
Author Organization [employer] Address 75 [facility] [address] [place] [address] Care Team Providers Care Hand Or Machine Paster Name Role Phone [facility] Primary Care Provider [phone] Reason for Visit * Reason Onset Date Comments Medication Question 11/12/2024 Med Refill 11/12/2024 Encounter Details Date Type Department Care Team ([facility] st Contact Info) Description 11/12/2024 Telephone [facility] MEDICINE [address] [place] [address] [facility] [address] [place] [address] Medication Question; Med Refill Social History Tobacco [...] from pt regarding Lidocaid Patch and Clonazepam. Steel Grinder advised pt med refill request was sent yesterday. documented in this encounter Plan of Treatment Upcoming Encounters Date Type Department Care Team (Late st Contact Info) Description 06/07/2025 1:00 PM EDT Clinical Support [facility] MEDICINE [address] [place] [address] Frida Knapp RN 06/08/2025 10:20 AM EDT Office Visit [facility] OPTOMETRY [address] [place] [phone] 07/12/2025 2:00 PM EST Office Visit [facility] MEDICINE [address] [place] [address] Ginger Perez FNP [address] [place] [address] documented as of this encounter Visit Diagnoses Not on filedocumented in this encounter Additional Health Concerns Assessment Noted Time PHQ-9 Depression Total Score: 13 024 11:27 AM EDT documented as of this encounter Care Teams Hand Or Machine Paster Relationship Specialty Start Date End Date Ginger Perez FNP [address] [place] [address] PCP - General Family Medicine 08/13/22 [facility] [place] [facility] 11/01/22 documented as of this encounter
--- OUTSIDE RECORDS SUMMARY | 2025-06-02 16:13 | XMS_ITS | Clinical Summary ---
Author Organization [employer] Address [address] [facility] [address] [place] [address] Care Team Providers Care Hyperion Administrator Name Role Phone Ginger Perez GREETING CARD MAKER Primary Care Provider [phone] Allergies Active Allergy Reactions Criticality Noted Date Comments Iodinated Contrast Media 09/15/2024 Mushroom Extract Complex (Obsolete) Anaphylaxis High 04/14/2021 Medications * This document contains information received from the source organization and may not represent a complete record from that organization. Blood Glucose Monitoring Suppl misc Active Blood Glucose Monitoring Suppl (GNP Easy Touch Glucose Meter) deviceIndicatio ns:Type 2 diabetes mellitus with hyperglycemia, with long-term current use of insulin ([facility]) Use as directed to check blood sugar four times daily 1 each 023 Active glucose blood test stripIndication s:Type 2 diabetes mellitus with hyperglycemia, with long-term current use of insulin (HCC) Use as directed to check blood sugar [...] with long-term current use of insulin (HCC) USE TO TEST BLOOD SUGAR FOUR TIMES DAILY 100 each 11 023 Active Blood Pressure kitIndications: Type 2 diabetes mellitus with hyperglycemia, with long-term current use of insulin (HCC) Use as directed 1 kit 024 Active [...] cholecalciferol VITAMIN D (Vitamin D-3) 50 MCG (1999 UT) tabletIndicatio ns:Chronic pain syndrome TAKE 1 TABLET BY MOUTH EVERY MORNING 90 tablet 1 025 Active Tirzepatide (Mounjaro) 5 MG/0.5ML solution auto-injectorIn dications:Type 2 diabetes mellitus with chronic kidney disease, with long-term current use of insulin, unspecified CKD stage (HCC) Inject 5 mg under the skin 1 (one) time per week. 2 mL 3 Active gabapentin (Neurontin) 300 MG capsuleIndicati ons:Mixed anxiety and depressive disorder Take 1 capsule by mouth every morning and every noon. Also take Gabapentin 600 mg 2 talets at bedtime 30 capsule 5 Active propranolol (Inderal) 40 MG tablet TAKE 1 TABLET BY MOUTH TWICE DAILY 180 tablet 1 Active Alcohol Swabs (Alcohol Prep) 70 % padsIndications :Type 2 diabetes mellitus with hyperglycemia, with long-term current use of insulin (HCC) USE DIRECTED FIVE TIMES DAILY 100 each 11 Active triamcinolone (Kenalog) 0.1 % ointmentIndicat ions:Rash and nonspecific skin eruption Apply topically 2 times daily. For 2 weeks 15 g Active lidocaine (Lidoderm) 5 % patchIndication s:Other chronic pain APPLY 1 PATCH TOPICALLY TO SKIN, LEAVE ON FOR 12 HOURS AND OFF FOR 12 HOURS DIRECTED 30 patch 1 Active clonazePAM (KlonoPIN) 1 MG tabletIndicatio ns:Mixed anxiety and depressive disorder TAKE 1 TABLET BY MOUTH THREE TIMES DAILY 84 tablet 025 Active gabapentin (Neurontin) 600 MG tabletIndicatio ns:Other chronic pain TAKE 1 TABLET BY MOUTH AT BEDTIME 30 tablet Active acetaminophen (Tylenol) 500 MG tablet Take 1,000 mg by mouth every 8 (eight) hours. Active atorvastatin (Lipitor) 20 MG tablet Take 20 mg by mouth at bedtime. Active Continuous Glucose Water Conservation Specialist (Dexcom G7 Water Conservation Specialist) device use as directed Active Continuous Glucose Sensor (Dexcom G7 Sensor) misc USE DIRECTED. CHANGE EVERY 10 DAYS. Active TRUEplus Glucose 4 g chewable tablet CHEW 4 TABLETS NEEDED FOR low blood sugar (LESS THAN 70mg/dL), REPEAT IN 15 MINUTES NEEDED UNTIL BLOOD SUGAR > 80 UP TO THREE TIMES DAILY. Active Nutritional Supplements (Ensure High Protein) liquid TAKE 333 ML BY MOUTH TWICE DAILY Active pantoprazole (ProtoNix) 40 MG EC tablet Take 40 mg by mouth Once per day. Active Gas Relief 80 MG chewable tablet CHEW AND SWALLOW 1 TABLET BY MOUTH EVERY 6 HOURS NEEDED FOR GAS Active zinc gluconate 50 MG tablet Take 50 mg by mouth Once per day. Active polyethylene glycol, PEG, 3350 (Glycolax) 17 GM/SCOOP powderIndicatio ns:Constipation , unspecified constipation type MIX 17G (1 CAPFUL) IN 8 OUNCES OF WATER AND TAKE BY MOUTH TWICE A DAY FOR 3 DAYS 510 g 2 Active fluticasone (Flonase Allergy Relief) 50 MCG/ACT nasal spray Administer 2 sprays into affected nostril(s) in the morning. 021 2024 Discontinued(M ed list cleanup (will not trigger notification to Pharmacy)) cetirizine (ZyrTEC) 10 MG tablet Take 1 tablet by mouth in the morning. 021 2024 Discontinued(M ed list cleanup (will not trigger notification to Pharmacy)) atorvastatin (Lipitor) 40 MG tablet Take 1 tablet by mouth at bed time. 020 2024 Discontinued(M ed list cleanup (will not trigger notification to Pharmacy)) Alcohol Swabs (Alcohol Prep) padsIndications :Type 2 diabetes mellitus with hyperglycemia, with long-term current use of insulin (HCC) Use as directed 100 each 11 023 2024 Discontinued(M ed list cleanup (will not trigger notification to Pharmacy)) Reguloid 57.6 % powderIndicatio ns:Constipation , unspecified constipation type MIX 1 TEASPOONFUL IN 8 OUNCES OF WATER OR JUICE AND DRINK EVERY MORNING 284 g 023 2024 Discontinued(M ed list cleanup (will not trigger notification to Pharmacy)) polyethylene glycol, PEG, 3350 (Glycolax) 17 GM/SCOOP powderIndicatio ns:Constipation , unspecified constipation type MIX 17G (1 CAPFUL) IN 8 OUNCES OF WATER AND TAKE BY MOUTH TWICE A DAY FOR 3 DAYS 510 g 2 025 2024 Discontinued clonazePAM (KlonoPIN) 1 MG tabletIndicatio ns:Mixed anxiety and depressive disorder TAKE 1 TABLET BY MOUTH THREE TIMES DAILY 84 tablet 025 2024 Discontinued gabapentin (Neurontin) 600 MG tablet TAKE 1 TABLET BY MOUTH AT BEDTIME 30 tablet 025 2024 Discontinued(R eorder (will not trigger [...] to Hypoventilation 06/04/2023 Illiterate 06/04/2023 Seizure disorder (CMS/HCC) 09/29/2022 Overview (09/29/2022): followed by [facility] 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 EEG's normal. Per neurology notes, possible dyskenisa s/t hx of antipsychotic medications which patient is no longer taking. Not currently taking any anti- seizure medications. No seizure episodes >2 months. Episodes triggered by emotional stress. Bariatric surgery status 09/29/2022 Overview (09/29/2022): Lap band was removed approx 8 years ago in [facility]; repeat lap band through [facility] without weight loss. Very upset by experience at [facility]. Currently working with [facility] weight mgnmt for removal of lap band. Assessment & Plan (05/03/2023 10:30 AM EDT): Details of current weight mngmt plan through [facility] unclear. Will request notes and follow up as indicated Obstructive sleep apnea 09/29/2022 Overview (06/04/2023): Compliant with BiPAP Followed by [facility] neurology and sleep clinic. Dr. Temple Gender dysphoria in adult 09/29/2022 Overview (09/29/2022): Interested in pursuing top and bottom gender reassignment surgery Not a candidate for hormone therapy Healthcare maintenance 09/29/2022 Overview (02/25/2024): Mammo: 07/2022--Birads 2 Pap: HPV negative 2019, no cytology on record. C-scope: Upcoming colonoscopy [facility] GI BMD: Routine [...] medication management. Any issues or concerns, contact [facility]. All his questions were answered and [...] be left alone, encouraged to request increased NURSE TRANSITIONAL hours. Will increase bedtime Gabapentin to 1200 [...] of family members and/or 1 of 2 NURSE TRANSITIONAL's always present. Patient was able to contract [...] prescriber. We did not discuss my planned shelter today. F/U with me in 1 month. 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 Strongly encouraged patient to continue with NURSE TRANSITIONAL/[facility] services due to multiple chronic conditions and patient's difficulty self managing care. Patient verbalizes understanding and agrees to plan Assessment & Plan (05/03/2023 10:15 AM EDT): Continue to work with [facility] DM educator Henny-will [...] or hyperglycemia -Follow up with PCP Epilepsy ([facility]) 04/18/2012 3 Encounters Date Type Department Care Team Description 06/02/2025 Orders Only GENERIC EXTERNAL DATA DEPARTMENT Provider, Generic External Data 05/31/2025 Telephone [facility] MEDICINE [address] [place] [address] Ana, Ginger, GREETING CARD MAKER Durable Medical Equipment 05/26/2025 Refill [facility] MEDICINE [address] [place] [address] Donna Dow, Constipation, unspecified constipation type 05/21/2025 Telephone [facility] MEDICINE [address] [place] [address] Ginger Perez FNP Med Refill 05/19/2025 Orders Only [facility] External Provider, [facility] 05/18/2025 Travel 05/18/2025 Refill [facility] MEDICINE [address] [place] [address] Ginger Perez GREETING CARD MAKER Mixed anxiety and depressive disorder 05/17/2025 Refill [facility] MED & PEDS [address] [place] [address] Ginger Perez FNP Other chronic pain 05/12/2025 Refill [facility] MED & PEDS [address] [place] [address] Ginger Perez, GREETING CARD MAKER 05/11/2025 Refill [facility] MEDICINE [address] [place] [address] Ginger Perez FNP Mixed anxiety and depressive disorder 04/19/2025 Telephone [facility] MEDICINE [address] [place] [address] Ginger Perez, GREETING CARD MAKER 04/19/2025 Refill [facility] MED & PEDS [address] [place] [address] AnaGinger, GREETING CARD MAKER 04/14/2025 Telephone [facility] MEDICINE [address] [place] [address] AnaGinger FNP MRI ORDER 04/14/2025 Refill [facility] MEDICINE [address] [place] [address] Ginger Perez FNP Mixed anxiety and depressive disorder 04/09/2025 Refill [facility] MED & PEDS [address] [place] [address] Ginger Perez, GREETING CARD MAKER Other chronic pain 03/31/2025 Telephone [facility] MEDICINE [address] [place] [address] Ginger Perez FNP Nurse Triage 03/29/2025 Refill [facility] MED & PEDS [address] [place] [address] Ginger Perez FNP Rash and nonspecific skin eruption 03/26/[address] [address] Ginger Perez FNP Care Coordination 03/23/[address] [address] Ginger Perez FNP Constipation, unspecified constipation type 03/22/2025 11:30 AM EDT Office Visit [address] [place] [address] Ginger Perez FNP Gait instability (Primary Dx); Type 2 diabetes mellitus with hypoglycemia without coma, with long-term current use of insulin ([facility]); Postmenopausal bleeding; Low back pain at multiple sites 03/22/2025 Travel 03/19/[address] [address] Melani Machuca MD Mixed anxiety and depressive disorder 03/19/[address] [address] Ginger Perez FNP Chart Prep 03/15/[address] [address] Ginger Perez FNP Appointment Rescheduling 03/12/[address] [address] Ginger Perez FNP Chart Prep 03/12/[address] [address] [place] FNP Telephone call 03/04/2025 1:00 PM EDT Clinical Support [address] [address] Frida Knapp, OZZY Long-term current use of benzodiazepine (Primary Dx) 03/04/[address] [address] Frida Knapp, RN C/O vaginal bleeding; GIA scoring; UTOX Neg BZO 03/04/2025 Travel 03/04/[address] [place] [address] Frida Knapp, OZZY Error (VOID this visit) [...] 06/07/2025 1:00 PM EDT Clinical Support [facility] MEDICINE [address], [place] [phone] Frida Knapp RN 06/08/2025 10:20 AM EDT Office Visit [facility] OPTOMETRY [address] [place] [address] 07/12/2025 2:00 PM EST Office Visit [facility] MEDICINE [address] [place] [address] [place], Ginger, GREETING CARD MAKER [address] [place] [address] Health Maintenance Due Date Last Done Comments [...] WHOLE BLOOD Routine 06/02/2025 3:36 PM EDT XR FOOT 3+ VIEWS LEFT Routine 05/19/2025 2:24 PM EDT POCT GLYCATED HEMOGLOBIN, TOTAL Routine 03/22/2025 11:53 AM EDT Type 2 diabetes mellitus with hypoglycemia without coma, with long-term current use of insulin ([facility]) POCT GLUCOSE Routine 03/22/2025 11:52 AM EDT Type 2 diabetes mellitus with hypoglycemia without coma, with long-term current use of insulin ([facility]) POCT BLANKA-14 URINE DRUG SCREEN Routine 03/04/2025 1:57 PM EDT Long-term current use of benzodiazepine DRUG MONITORING, BENZODIAZEPINES, QUANTITATIVE, URINE Routine 03/04/2025 1:30 PM EDT Long-term current use of benzodiazepine GLUCOSE, WHOLE BLOOD Routine 03/02/2025 3:33 PM EDT HM COLONOSCOPY Routine 12/24/2024 HIV [...] Health Maintenance Results * Glucose, Whole Blood (06/02/2025 3:36 PM EDT) Only the most recent of2 resultswithin the time period is included. Glucose, Whole Blood 84 60 - 115 mg/dL [facility] Comment:METER #: [id number] 0Testing performed in the Endocrinology Department [address] , [address], [place]. 06/02/2025 3:36 PM EDT 06/02/2025 3:43 PM EDT us Generic External Data Provider LAB BLOOD ORDERAB LES Final Result [facility] [address] [place] [phone] * XR Foot 3+ Views Left (05/19/2025 2:24 PM EDT) Anatomical Region Laterality Modality Lower Extremities, Foot Left Radiogra phic Imaging 05/19/2025 2:24 PM EDT Narrative 05/19/2025 2:40 PM EDT [address] [address] XRay Report Signed Patient: Hilda Mcmahan MR#: [id number] : 1965 Acct:[id number] Age/Sex: 59 / F ADM Date: 05/19/25 Loc: DAO Attending Dr: Nichelle Catalan DPM Ordering Physician: Nichelle Catalan DPM Date of Service: 05/19/25 Procedure(s): XR foot LT min 3V Accession Number(s): [id number] cc: Nichelle Catalan DPM; [facility] Reason for Exam: M79.675 - Pain in [...] 05/19/25 1436 DD/ 1424 TD/TT: 05/19/25 1420 Yarn Polishing Machine Operator: Procedure Note Daxter, Image - 05/19/[address] [address] XRay Report Signed Patient: Hilda McmahanMR#: [id number] : 1965Acct:[id number] Age/Sex: 59 / FADM Date: 05/19/25 Loc: DAO Attending Dr: Nichelle Catalan DPM Ordering Physician: Nichelle Catalan DPM Date of Service: 05/19/25 Procedure(s): XR foot LT min 3V Accession Number(s): [id number] cc: Nichelle Catalan DPM; [facility] Reason for Exam: M79.675 - Pain in [...] 05/19/25 1436 DD/ 1424 TD/TT: 05/19/25 1420 Yarn Polishing Machine Operator: [facility] External Provider IMG XR PROCEDURES Edited Result - Final * (ABNORMAL) POCT HGB A1C (03/22/2025 11:53 AM EDT) Hemoglobin A1C 5.8(A) 4.0 - 5.7 % QC Media Lot # [id number] Lot# Expiration Date Blood 03/22/2025 11:5 3 AM EDT [facility] POINT OF CARE TEST ENTER/EDIT ORDERABLES Final Result * POCT Glucose (03/22/2025 11:52 AM EDT) Pathologist [facility] Glucose Blood, POC 160 60 - 200 mg/dL QC Media Lot # [id number] Lot# Expiration Date Blood Capillary blood specimen / Unknown 03/22/2025 11:52 AM EDT [facility] POINT OF CARE TEST ENTER/EDIT ORDERABLES Final Result * (ABNORMAL) POCT BLANKA-14 Urine Drug Screen (03/04/2025 1:57 PM EDT) Pathologist [facility] THC Positive Negative Cocaine Screen, Urine Negative [...] procedure / Unknown 03/04/2025 1:57 PM EDT Narrative Frida Knapp RN - 03/04/2025 1:57 PM EDT UTOX cup Lot#[id number] Exp. 06/08/26 Internal Pass Control [facility] POINT OF CARE TEST ENTER/EDIT ORDERABLES Final Result * Drug Monitoring, Benzodiazepines, Quantitative, Urine (03/04/2025 1:30 PM EDT) Nordiazepam, GCMS Urine NEGATIVE [facility] Comment:[id number] ng/mL Oxazepam, GCMS Urine NEGATIVE [facility] Comment:ZIHJDG58 ng/mL Lorazepam GCMS Urine NEGATIVE [facility] Comment:QKGCVF35 ng/mL Alprazolam, GCMS Urine NEGATIVE [facility] Comment:KXMYLW33 ng/mL Alphahydroxytriazolam, GCMS Ur NEGATIVE [facility] Comment:PSXYBQ71 ng/mL Temazepam, GCMS Urine NEGATIVE [facility] Comment:DNKWCY10 ng/mL Alphahydroxymidazolam,GC MS Ur NEGATIVE [facility] Comment:WZVIMG64 ng/mL Aminoclonazepam, GCMS Urine 941 [facility] Comment:MHXSCA55 ng/mL Flurazepam Metabolite,GCMS Ur NEGATIVE [facility] Comment:NRHAVG78 ng/mL Benzodiazepines Comments SEE NOTE [facility] Comment:NOTES AND COMMENTSTh is drug testing is for medical treatment only. Analysiswas performed as non-forensic testing and these resultsshould be used only by healthcare providers torender diagnosis or treatment, or to monitor progress ofmedical conditions.Benzodiazepines Notes:Aminoclonazepam detected is consistent with the use of thedrug Clonazepam.LDT Notes:Confirmation tests were developed and their analyticalperformance characteristics have been determined by [employer]. It has not been cleared orapproved by the FDA. This assay has been validated pursuantto the CLIA regulations and is used for clinical purposes.Healthcare Providers needing Interpretation assistance,please contact us at [phone] ( ) M-F,8am to 10pm ESTPERFORMING SITE:[facility] [employer] [facility], [address] [place] [phone] Woodworker: LIEN HARO MD, CLIA:[id number] Urine (Urine, Random) 03/04/2025 1:30 PM EDT 03/04/2025 4:21 PM EDT [facility] LAB URINE ORDERABLES Final Re sult [facility] [address] [place] [address] [phone] * Colonoscopy (12/24/2024) Colonoscopy Normal Normal Comment:negative repeat 10 y ears. [facility] Provider HEALTH MAINTENANCE Final Result * HIV-1/2 Antigen and Antibodies, Fourth Generation, with Reflexes (10/01/2024 9:58 AM EST) HIV AB/AG Nonreactive Nonreactive [facility] Comment:HIV-1 p24 Ag and/or HIV-1/HIV-2 Ab not detected.A test result that is nonreactive does not exclude thepossibility of exposure to or infection with HIV-1 and/orHIV-2. Nonreactive results in this assay for individualswith prior exposure to HIV-1 and/or HIV-2 may be due toantigen and antibody levels that are below the limit ofdetection of this assay.[employer] HIV Ag/Ab Combo assay result andsupplemental assay results should be interpreted inconjunction with the patient's clinical presentation,history and other laboratory results. If the results areinconsistent with clinical evidence, additional testing issuggested to confirm the result. Blood Venous blood specimen / Unknown 10/01/2024 9:58 AM EST 10/01/2024 11:04 AM EST [facility] GREETING CARD MAKER LAB BLOOD ORDERABLES Final Re sult [facility] [address] [place] [phone] [phone] * (ABNORMAL) Lipid Panel, Standard (09/14/2024 1:25 PM EST) Triglycerides 123 <150 mg/dL [facility] Comment:Desirable Triglyceri de: less than 150 mg/dLBorderline High Triglyceride 150-199 mg/dLHigh Triglyceride: 200-499 mg/dLVery High Triglyceride: greater than or equal to 5OO mg/dL Cholesterol 146 <200 mg/dL [facility] Comment:Desirable Cholestero l: less than 200 mg/dLBorderline High Cholesterol: 200-239 mg/dLHigh Cholesterol: greater than 239 mg/dL LDL Cholesterol Calculated 83 <100 mg/dL [facility] Comment:Desirable LDL: less than 100 mg/dLNear Optimal/Above Optimal LDL: 110- 129 mg/dLBorderline High LDL: 130-159 mg/dLHigh LDL: 160-189 mg/dLVery High LDL: greater than or equal to 190 mg/dL HDL Cholesterol 39(L) >40 mg/dL [facility] Comment:Desirable HDL: great er than 40 mg/dL Note: This HDL assay may give artificially low results in patients with liver disease. Blood Venous blood specimen / Unknown 09/14/2024 1:25 PM EST 09/14/2024 4:07 PM EST [facility] LAB BLOOD ORDERABLES Final Re sult [facility] [address] [place] [phone] * Pap Smear (09/08/2024 9:30 AM EST) Swab Cervix uteri structure / Unknown 09/08/2024 9:30 AM EST 09/09/2024 10:20 AM EST Narrative [facility] - 09/17/2024 3:06 PM EST ----- ------- Name: Hilda Mcmahan Age/Sex: 59/F : 1965 Unit#: [id number] Attend Dr: CORBIN HUGHES CNM Re09/08/24 Status: DEP REF Location: [facility] Disch: ----- ------- SPEC : [id number] RECD: 09/09/24 STATUS: HENNA SOLIS NUM: [id number] LORI: 09/08/[address] [facility] [address]: CORBIN HUGHES CNM ENTERED: 09/09/24 SP TYPE: Pap Smr OTHR DR: ORDERED: Pap Smear Interpretation Satisfactory for evaluation. Negative for intraepithelial lesion or malignancy. No endocervical cells seen. HPV High Risk: Negative HPV Genotyping 16: Negative HPV Genotyping 18: Negative Clinical Information LMP: Postmenopausal Previous PAP test: WNL Other history: Postmenopausal bleeding Material Received ThinPrep-Cervical ----- ------- Signed (signature on file) TALIB Roche (ASCP) 09/17/24 1506 ----- ------- END OF REPORT Corbin Hughes CNM LAB CYTOLOGY ORDERABLES F inal Result [facility] [address] [place] [phone] * HPV mRNA E6/E7 w/Reflex to HPV Genotypes 16, 18/45 (09/08/2024 12:00 AM EST) us Historical Provider MD LAB CYTOLOGY ORDERABLES F inal Result * BI Mammogram Screening Tomosynthesis Bilateral (08/27/2024 1:05 PM EST) Anatomical Region Laterality Modality Breast Bilateral Mammography 08/27/2024 1:05 PM EST Narrative 09/08/2024 4:57 PM EST [facility] [address] [place] [address] Mammography Report Signed Patient: Hilda Mcmahan MR#: [id number] : 1965 Acct:[id number] Age/Sex: 59 / F ADM Date: 08/27/24 Loc: ANDRÉSO Attending Dr: Oz Sahni MD Ordering Physician: Ginger Perez GREETING CARD MAKER Results: 1Nega tive Date of Service: 08/27/24 Follow Up: 1 Year From Orig inal Mammogram Procedure(s): MM tomosynthesis screening BI Accession Number(s): [id number] cc: Ginger Perez GREETING CARD MAKER EXAMINATION: MM SCREENING DIGITAL BREAST TOMOSYNTHESIS, BILATERAL [...] by Pepper Mercer DO in OV> 09/08/24 165 DD/ 1305 TD/TT: 08/27/24 1329 Yarn Polishing Machine Operator: Procedure Note Donamberter, Image - 09/08/20[facility] [address] [place], [place] [address] Mammography Report Signed Patient: Hilda McmahanMR#: [id number] : 1965Acct:[id number] Age/Sex: 59 / FADM Date: 08/27/24 Loc: HO.MAMMO Attending Dr: Oz Sahni MD Ordering Physician: Ginger Perez FNPResults: 1Nega tive Date of Service: 08/27/24Follow Up: 1 Year From Orig inal Mammogram Procedure(s): MM tomosynthesis screening BI Accession Number(s): [id number] cc: Ginger Perez GREETING CARD MAKER EXAMINATION: MM SCREENING DIGITAL BREAST TOMOSYNTHESIS, BILATERAL [...] signed by Pepper Mercer DO in OV> 09/08/241653 DD/ 1305 TD/TT: 08/27/24 1329 Yarn Polishing Machine Operator: [facility] IMG BI PROCEDURES Final Resul t * Hepatitis C Antibody with Reflex to HCV, RNA, Quantitative, Real-Time PCR (09/25/2022 12:06 PM EST) Hepatitis C Antibody NON-REACT MARRY NON-REACT MARRY Project Playlist Index 0.12 <1.00 Project Playlist Comment: HCV antibody was non-reactive. There is no laboratory evidence of HCV infection. In most cases, no further action is required. However, if recent HCV exposure is suspected, a test for HCV RNA (test code 33583) is suggested. For additional information please refer to http://education.Surfingbird/faq/UNG87t0 (This link is being provided for informational/ educational purposes only.) Blood Venous blood specimen / Unknown 09/25/2022 12:06 PM EST 09/25/2022 12:06 PM EST Narrative [facility] - 09/27/2022 8:46 AM EST FASTING:YES FASTING: YES [facility] LAB BLOOD ORDERABLES Final Re sult [facility] [address], [place] [address] [employer] [place] [address] [facility], ([address]) [place] [address] from Last 3 Months or Most Recently Relevant to Health Maintenance Insurance [employer] C3 Care Teams Hyperion Administrator Relationship Specialty Start Date End Date Ginger Perez FNP [address] [place] [id number] PCP - General Family Medicine 08/13/22 [facility] 11/01/22
== END 2025-06-02 16:02 | disposition home or self-care (01) ==
LOC: HO.ENCR 15:12
PROVIDERS: PCP Registered Nurse; Visit Provider Internal Medicine Endocrinology, Diabetes & Metabolism
DX: E05.90 Thyrotoxicosis, unspecified without thyrotoxic crisis or storm (principal); E16.2 Hypoglycemia, unspecified; E11.9 Type 2 diabetes mellitus without complications; Z79.4 Long term (current) use of insulin
CPT/HCPCS: 99213

== ENCOUNTER → 2025-06-02 15:11 | Outpatient (BNVA) | payer MEDICAID, SELFPAY | PROVIDERS: PCP Registered Nurse; Visit Provider Internal Medicine Endocrinology, Diabetes & Metabolism | DX: E05.90 Thyrotoxicosis, unspecified without thyrotoxic crisis or storm (principal); E16.2 Hypoglycemia, unspecified | CPT/HCPCS: 82947; 83036; 99212 ==

== ENCOUNTER 2025-06-09 13:01 | Outpatient (AMB) | payer MEDICAID, SELFPAY ==
--- NOTE | 2025-06-09 13:16 | MHC.OFFVIS ---
Vital Signs 06/09/25 13:18 Height 5 ft 2 in Weight 180 lb BMI 32.9 Intake Visit Reasons: OV- Left Great Toe s/p Partial Nail Avulsion Intake Note: [place] is a 59 year old male who presents today for a follow up of his Left Great Toe. At the last visit a Left Partial Nail Avulsion was performed, and patient was provided with a Post Op shoe and instructed to WBAT. Xrays were ordered and completed on 05/19/25. Pt states he has concerns of an ingrown coming back on her left hallux on the lateral border and discoloration of her foot on the medial aspect of her left foot for about 1 year. IMPRESSION: Mild narrowing of the DIP joints. Calcaneal spurs as described. Allergies mushroom Allergy (Verified 06/09/25 13:18) Anaphylaxis Medication List - Last Reconciled 06/09/25 by Nichelle Catalan DPM acetaminophen (Pain Relief Extra Strength (acetaminophen)) 1,000 mg PO Q8H albuterol sulfate 90 mcg/actuation (Proventil HFA) 1 puff inhalation QID PRN atorvastatin 20 mg PO BEDTIME bisacodyl (Dulcolax (bisacodyl)) 20 mg (4 x 5 mg) PO ONCE 1 day blood-glucose meter (FreeStyle [place] Lite kit) As directed blood-glucose sensor (Dexcom G7 Sensor device) As directed every 10 days blood-glucose,marketing production specialist,cont (Dexcom G7 Swimming Pool Plasterer Helper) As directed cholecalciferol (vitamin D3) 50 mcg PO QAM clonazepam 1 mg PO TID CPAP (CPAP Machine/Device) As directed diclofenac sodium 1% 1 - 2 grams topical BID PRN fluticasone propion-salmeterol 250-50 mcg/dose (Advair Diskus) 1 ea inhalation BID food supplemt, lactose-reduced (Ensure oral liquid) ea PO BID FreeStyle Lite Strips (blood sugar diagnostic) USE TO TEST BLOOD SUGAR THREE TIMES DAILY to confirm sensor readings or if low NS gabapentin 600 mg PO BEDTIME glucose 4 grams PO Q15M PRN ibuprofen 600 mg PO Q6H PRN lancets (TRUEplus Lancets) As directed tid lancets (FreeStyle Lancets) Three times a day levetiracetam (Keppra) 500 mg PO BID lidocaine 5% (Lidoderm) 1 patch topical DAILY lisinopril-hydrochlorothiazide 20-25 mg 2 tabs PO QAM melatonin 5 mg PO QPM naproxen 250 mg PO BID PRN olmesartan 5 mg PO QAM pantoprazole 40 mg PO DAILY pen needle, diabetic (Pentips Pen Needle) 1 ea miscellaneous DAILY prazosin 5 mg PO BEDTIME propranolol 40 mg PO BID psyllium husk (Reguloid (aspartame)) 3 grams PO QAM simethicone 80 mg PO Q6H PRN terbinafine HCl 1% (Athlete's Foot (terbinafine)) 1 appl topical BID tirzepatide (Mounjaro) 5 mg (0.5 mL) subcut QWEEK tizanidine 4 mg PO Q8H PRN ursodiol 600 mg PO DAILY HPI Comments Details: The patient is a 59-year-old male presenting for follow-up status post left hallux PNA lateral border. The patient reports a history of an accident over 30 years ago, which may have contributed to the current condition of the Achilles tendon and heel, although he states he does not feel any pain this time to the area. The patient also has a history of diabetes mellitus, which complicates her foot care due to the risk of delayed wound healing. She mentions that her diabetes medication was adjusted, and she is currently not on her previous regimen, which included Mounjaro. Her blood sugar levels have been fluctuating, with recent readings around 100 mg/dL. The patient reports an itchy/discolored patch noted to the left foot, as well as thickened and discolored changes to the toenails, particularly to the right hallucal nail. Patient has tried previous [id number]-[id number] topical treatments with minimal relief. Denies any other pedal concerns. Denies any nausea vomiting fever or chills. [facility] Medical History Injury of left great toe Pain of left great toe Stenotic cervical os Post-menopausal bleeding Hypoglycemia Fatty liver Subclinical hyperthyroidism Seizures Vitamin D deficiency Chronic pain syndrome Spondylosis 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 myelopathy Disc degeneration, lumbar Hip osteoarthritis Sacroiliitis Illiterate Morbid obesity due to excess calories Diabetes mellitus type 2, controlled, without complications Essential hypertension Hyperlipidemia LDL goal <100 Panic attacks VELASQUEZ on CPAP History of tremor Gender dysphoria Anxiety Depression Asthma Epilepsy Hypertension Surgical History History of esophagogastroduodenoscopy (EGD) Hx of laparoscopic gastric banding Family History Father CVD (cardiovascular disease) Mother Hypertension Sister Breast cancer Social History Household Members: Children and None Household Members Other:: 2 dogs Are you a primary coronary care unit nurse to a significant other at home: No Do you presently have visiting nurse or other home services: Yes Alcohol intake: former Patient Tobacco Use Status: Former Tobacco user Substance Use Type: Marijuana Female Reproductive History Menstrual Age of Menarche: 12 Review of Systems Const Details: - Musculoskeletal: Reports tenderness to the toes in the areas where the nails are thickened. Denies any pain to the heel or Achilles tendon area of the left foot. - Endocrine: Reports fluctuating blood sugar levels. Denies any recent episodes of hypoglycemia. - Integumentary: Reports discoloration and thickening of the toenail. Reports discoloration and itching noted to the medial aspect of the left foot. All systems reviewed & are unremarkable except as noted in HPI and below Physical Exam Vital Signs: BMI result Body Mass Index 32.9 Extrem Other: B/L lower extremity focused physical exam: Derm: Healed left hallucal PNA site. No active bleeding or purulence noted. Thickened elongated and slightly discolored toenails x10 with subungual debris noted to right hallucal nail. Mild brown discoloration and pruritis noted to the medial aspect of the left midfoot. No ecchymosis noted. No open wounds or abrasions. No clinical signs of infection. Vascular: DP/PT pulses palpable. Capillary refill time less than 3 seconds. No varicosities noted. Pedal hair present. Neuro: Protective sensation is grossly intact. Musculoskeletal: Minimal Pain on palpation to the toenails x10 due to increased length and thickness. No pain with range of motion of the left hallux at the level of the IPJ and MPJ. Range of motion of remaining toes within normal limits. ROM of the hindfoot and ankles WNL. Patient seen ambulating with a cane. No pain on palpation to the heel plantaraly or posteriorly. No pain to the Achilles tendon. No palpable dell noted. Office Procedures AMB Debridement/Avulsion Podia Details: Debrided toenails x10 using sterile nail nipper with no incidents. 09235-Ommslubulhx of Nail 6+ Procedure code (CPT) selection complete Results Reviewed Results Reviewed: Podiatry read of Left foot weightbearing three-view x-rays (05/19/25): Calcaneal spur noted plantarly and posteriorly worse to the posterior aspect of the calcaneus. Kager's triangle intact. Decreased joint space noted to the IPJ is of 3rd and 4th digits. Hammertoe deformities noted to digits 2 through 5. No acute fractures or dislocations noted. Left foot weightbearing three-view x-rays (05/19/25): FINDINGS: Three weight bearing views of the left foot are submitted. Osseous mineralization is normal. There is no fracture or dislocation. There is mild narrowing of the DIP joints. There are calcaneal spurs at the plantar aspect and at the insertion of the Achilles tendon. The soft tissues are unremarkable. IMPRESSION: Mild narrowing of the DIP joints. Calcaneal spurs as described. Assessment & Plan Assessment & Plan (1) Diabetes mellitus type 2, controlled, without complications: Comment: IDDM Code(s): E11.9 - Type 2 diabetes mellitus without complications Category: Medical (2) Tinea pedis: Code(s): B35.3 - Tinea pedis Category: Medical Qualifiers: Laterality: left Qualified Code(s): B35.3 - Tinea pedis (3) Other enthesopathy of left foot and ankle: Code(s): M77.52 - Other enthesopathy of left foot and ankle Category: Medical (4) Onychomycosis due to dermatophyte: Code(s): B35.1 - Tinea unguium Category: Medical (5) Injury of left great toe: Code(s): S99.922A - Unspecified injury of left foot, initial encounter Category: Medical Qualifiers: Encounter type: subsequent encounter Qualified Code(s): S99.922D - Unspecified injury of left foot, subsequent encounter (6) Pain of left great toe: Code(s): M79.675 - Pain in left toe(s) Category: Medical (7) Ingrown nail of great toe of left foot: Code(s): L60.0 - Ingrowing nail (8) Cellulitis of great toe of left foot: Code(s): L03.032 - Cellulitis of left toe (9) Nail dystrophy: Code(s): L60.3 - Nail dystrophy Category: Medical Plan Patient was informed and verbally consented to the use of an ambient scribe for clinic note documentation during this visit. I discussed with the patient the presence of bone spurs and Achilles tendonitis, explaining that surgery is not currently necessary unless the condition worsens. We reviewed her diabetes management, emphasizing the importance of maintaining stable blood sugar levels to prevent complications. I recommended an antifungal cream for the tinea pedis and advised regular podiatry visits for nail care. We also discussed the importance of monitoring symptoms and seeking medical attention if condition changes. - Continue monitoring the bone spurs and Achilles tendonitis; consider surgical intervention if the condition worsens or fragmemt worsens. - Adjust diabetes management plan to stabilize blood sugar levels as per PCP; follow up with primary care for medication review. - Prescribed Terbinafine cream for tinea pedis. - Debrided toenails x10. - Schedule regular podiatry visits every nine weeks for nail care to prevent complications related to diabetes. - Wear supportive shoe gear and avoid barefoot walking. Patient is to return to the clinic in 9 weeks for routine diabetic nail care. Orders: Orders AMB Debridement/Avulsion Podiatry Today B35.1 - Tinea unguium, E11.9 - Type 2 diabetes mellitus without complications, L60.3 - Nail dystrophy, Z79.4 - intermediate project manager (current) use of insulin Medications: New terbinafine HCl 1% (Athlete's Foot (terbinafine)) 1 appl topical BID 15 grams 2RF Tinea Pedis B35.1 - Tinea unguium, B35.3 - Tinea pedis, E11.9 - Type 2 diabetes mellitus without complications, M77.52 - Other enthesopathy of left foot and ankle, Z79.4 - nursing home (current) use of insulin Coding Level of Care Code Est Pt Level 4 (96319) Diagnoses Diabetes mellitus type 2, controlled, without complications E11.9 Tinea pedis of left foot B35.3 Laterality: left Other enthesopathy of left foot and ankle M77.52 Onychomycosis due to dermatophyte B35.1 Injury of left great toe, subsequent encounter S99.922D Encounter type: subsequent encounter Pain of left great toe M79.675 Ingrown nail of great toe of left foot L60.0 Cellulitis of great toe of left foot L03.032 Nail dystrophy L60.3 CPT Codes Skin Debridement - CPT: 57749-Tzuawmdlkbn of Nail 6+ ([id number]) Time Spent (min) 50
[2025-06-09 13:18] VITALS: BMI 32.9
== END 2025-06-09 14:11 | disposition home or self-care (01) ==
LOC: HO.HPODS 13:02
PROVIDERS: PCP Registered Nurse; Visit Provider Student in an Organized Health Care Education/Training Program
DX: E11.9 Type 2 diabetes mellitus without complications (principal); B35.3 Tinea pedis; M77.52 Other enthesopathy of left foot and ankle; B35.1 Tinea unguium; S99.922D Unspecified injury of left foot, subsequent encounter; M79.675 Pain in left toe(s); L60.0 Ingrowing nail; L03.032 Cellulitis of left toe; L60.3 Nail dystrophy
CPT/HCPCS: 11721; 99214

== ENCOUNTER → 2025-06-09 13:01 | Outpatient (BNVA) | payer MEDICAID, SELFPAY | PROVIDERS: PCP Registered Nurse; Visit Provider Student in an Organized Health Care Education/Training Program | DX: B35.3 Tinea pedis (principal); B35.1 Tinea unguium; M77.52 Other enthesopathy of left foot and ankle; E11.9 Type 2 diabetes mellitus without complications; Z79.4 Long term (current) use of insulin; L60.0 Ingrowing nail; L03.032 Cellulitis of left toe; S99.922D Unspecified injury of left foot, subsequent encounter; L60.3 Nail dystrophy | CPT/HCPCS: 11721; 99212 ==

== ENCOUNTER 2025-06-30 12:33 | Outpatient (AMB) | payer MEDICAID, SELFPAY ==
--- OUTSIDE RECORDS SUMMARY | 2025-06-28 10:30 | XMS_ITS | Encounter Summary ---
Author Organization [employer] Address [address] [place] [address] Care Team Providers Care Pipe Line Maintenance Supervisor Name Role Phone Ginger Perez [facility] Primary Care Provider [phone] Reason for Visit * Reason Comments FILE KEEPER RV Encounter Details Date Type Department Care Team (Latest Contact Info) Description 06/28/2025 10:30 AM EDT Clinical Support [facility] MEDICINE [address] [place] [address] Frida Knapp RN Long-term current use of benzodiazepine (Primary Dx) Social History Tobacco Use Types [...] Progress Notes * Frida Knapp RN - 06/28/2025 10:30 AM EDT SUBJECTIVE: Hilda Mcmahan is a 59 y.o. year old adult who presents for FILE KEEPER RV Preferred language for medical information: Niuean Hilda Mcmahan does report adherence to Clonazepam (Klonopin) 1 mg, take 1 tablet every 8hours PRN, last refilled 06/18/2025. The patient last took Clonazepam (Klonopin) on: 06/27/2025 Medication effective: yes Sleep habits: sleeping ok Therapist: Yes Patients medications are managed by Rudolph CROWDER., nurse Mloly @ [phone]. Pill counts were provided by [facility] nurse. Pt shared she is starting with a new psychiatrist. OBJECTIVE: JUNIOR ACCOUNTANT checked: 06/28/2025 Pill count completed for Clonazepam (Klonopin), [facility] reports todays count is 60 , anticipated count should be 53, this is as expected. Last PCP visit: 03/22/2025 GIA-7 Total Score: 21 (03/04/2025 1:56 PM) Controlled substance agreement signed: Controlled Substance Agreement 10/29/2024 FILE KEEPER Tier: 2 Current Medications[1] Smoking status: Denies ETOH use: Denies Illicit substances: Denies Marijuana use: Yes, gummies , Marijuana card: No , Marijuana Acquired from: Dispensary Lab Results Component Value Date POCTHC Positive (A) 06/28/2025 POCCOCAINEUR Negative 06/28/2025 POCOPIATEUR Negative 06/28/2025 DOAUR Negative 06/28/2025 POCAMPHETAMI Negative 06/28/2025 POCBENZODIUR Positive (A) 06/28/2025 POCBARBSCRN Negative 06/28/2025 POCMETHADOUR Negative 06/28/2025 POCBUPSCRN Negative 06/28/2025 POCTCAUR Negative 06/28/2025 POCMDMAUR Negative 06/28/2025 POCOXYCODONE Negative 06/28/2025 POCPHENCYCUR Negative 06/28/2025 PROPOXUR Negative 06/28/2025 FENTANYLURIN Negative 06/28/2025 ASSESSMENT: Encounter Diagnosis Name Primary? Long-term current use of benzodiazepine Yes PLAN: Pt advised that once psychiatrist starts to prescribe her Clonazepam, she will not need to continuewith FILE KEEPER appts. Information on acupuncture given: Previously discussed Narcan education provided: Previously discussed Narcan prescription: active Hilda Mcmahan will continue taking medication as prescribed and follow up at the next FILE KEEPER visit or sooner if needed. Hilda Mcmahan has verbalized understanding of care plan. Future Appointments Date Time Provider Department Center 07/06/2025 11:30 AM Jaycee Joseph OD VISION [facility] 07/12/2025 2:00 PM [facility], [facility] MEDICINE [facility] 09/29/2025 11:30 AM Frida Knapp, RN MEDICINE [facility] Frida Knapp, RN [1] Current Outpatient Medications: clonazePAM (KlonoPIN) 1 MG tablet, Take 1 tablet (1 mg) by mouth 3 times daily for 28 days. Do not start before June 18, 2025., Disp: 84 tablet, Rfl: 0 acetaminophen (Tylenol) 500 MG tablet, Take 1,000 mg by mouth every 8 (eight) hours., Disp: , Rfl: Advair Diskus 250-50 MCG/ACT aerosol powder , INHALE 1 PUFF BY MOUTH TWICE DAILY IN THE MORNING ANDIN THE EVENING APPROXIMATELY 12 HOURS APART. RINSE MOUTH AFTER USING., Disp: 60 each, Rfl: 2 albuterol (2.5 MG/3ML) 0.083% nebulizer solution, INHALE 1 AMPULE USING A NEBULIZER EVERY 6 HOURS NEEDED FOR WHEEZING, Disp: 90 mL, Rfl: 11 albuterol (Ventolin HFA) 108 (90 Base) MCG/ACT inhaler, INHALE 2 PUFFS BY MOUTH FOUR TIMES DAILY ASNEEDED, Disp: 18 g, Rfl: 11 Alcohol Swabs (Alcohol Prep) 70 % pads, USE DIRECTED FIVE TIMES DAILY, Disp: 100 each, Rfl: 11 atorvastatin (Lipitor) 20 MG tablet, Take 20 mg by mouth at bedtime., Disp: , Rfl: Blood Glucose Monitoring Suppl (GNP Easy Touch Glucose Meter) device, Use as directed to check blood sugar four times daily, Disp: 1 each, Rfl: 0 Blood Glucose Monitoring Suppl [facility], , Disp: , Rfl: Blood Pressure kit, Use as directed, Disp: 1 kit, Rfl: 0 cholecalciferol VITAMIN D (Vitamin D-3) 50 MCG (1999 UT) tablet, TAKE 1 TABLET BY MOUTH EVERY MORNING, Disp: 90 tablet, Rfl: 1 Continuous Glucose Sub Assembly Team Worker (Dexcom G7 Sub Assembly Team Worker) device, use as directed, Disp: , Rfl: Continuous Glucose Sensor (Dexcom G7 Sensor) [facility], USE DIRECTED. CHANGE EVERY 10 DAYS., Disp: , Rfl: gabapentin (Neurontin) 300 MG capsule, Take 1 capsule by mouth every morning and every noon time., Disp: 60 capsule, Rfl: 5 Gas Relief 80 MG chewable tablet, CHEW AND SWALLOW 1 TABLET BY MOUTH EVERY 6 HOURS NEEDED FOR GAS, Disp: , Rfl: glucose blood test strip, Use as directed to check blood sugar four times daily, Disp: 100 each, Rfl: 12 lidocaine (Lidoderm) 5 % patch, APPLY 1 PATCH TOPICALLY TO SKIN, LEAVE ON FOR 12 HOURS AND OFF FOR 12 HOURS DIRECTED, Disp: 30 patch, Rfl: 1 melatonin 5 MG tablet, TAKE 1 TABLET BY MOUTH EVERY EVENING 2-3 HOURS BEFORE BEDTIME., Disp: 90 tablet, Rfl: 3 naloxone (Narcan) 4 mg/0.1 mL nasal spray, Administer 1 spray (4 mg) into affected nostril(s) if needed for opioid reversal. May repeat every 2-3 minutes if needed, alternating nostrils, until medical assistance becomes available., Disp: 2 each, Rfl: 3 Nutritional Supplements (Ensure High Protein) liquid, TAKE 333 ML BY MOUTH TWICE DAILY, Disp: , Rfl: olmesartan (BENIcar) 5 MG tablet, TAKE 2 TABLETS BY MOUTH ONCE DAILY IN THE MORNING, Disp: 180 tablet, Rfl: 3 oxyCODONE (Roxicodone) 5 MG immediate release tablet, Take 1 tablet (5 mg) by mouth every 6 (six) hours if needed for severe pain., Disp: 12 tablet, Rfl: 0 pantoprazole (ProtoNix) 40 MG EC tablet, Take 40 mg by mouth Once per day., Disp: , Rfl: polyethylene glycol, PEG, 3350 (Glycolax) 17 GM/SCOOP powder, MIX 17G (1 CAPFUL) IN 8 OUNCES OF WATER AND TAKE BY MOUTH TWICE A DAY FOR 3 DAYS, Disp: 510 g, Rfl: 2 prazosin (Minipress) 5 MG capsule, TAKE 1 CAPSULE BY MOUTH AT BEDTIME, Disp: 90 capsule, Rfl: 2 propranolol (Inderal) 40 MG tablet, TAKE 1 TABLET BY MOUTH TWICE DAILY, Disp: 180 tablet, Rfl: 1 terbinafine (LamISIL) 1 % cream, apply to the affected area(s) twice daily, Disp: , Rfl: Tirzepatide (Mounjaro) 5 MG/0.5ML solution auto-injector, Inject 5 mg under the skin 1 (one) time per week., Disp: 2 mL, Rfl: 3 tiZANidine (Zanaflex) 4 MG tablet, TAKE 1 TABLET BY MOUTH EVERY 8 HOURS NEEDED. DO NOT EXCEED 3 TABLETS IN 24 HOURS, Disp: 90 tablet, Rfl: 11 triamcinolone (Kenalog) 0.1 % ointment, Apply topically 2 times daily. For 2 weeks, Disp: 15 g, Rfl: 0 TRUEplus Glucose 4 g chewable tablet, CHEW 4 TABLETS NEEDED FOR low blood sugar (LESS THAN 70mg/dL), REPEAT IN 15 MINUTES NEEDED UNTIL BLOOD SUGAR > 80 UP TO THREE TIMES DAILY., Disp: , Rfl: TRUEplus Lancets 33G misc, USE TO TEST BLOOD SUGAR FOUR TIMES DAILY, Disp: 100 each, Rfl: 11 zinc gluconate 50 MG tablet, Take 50 mg by mouth Once per day., Disp: , Rfl: Current Facility-Administered Medications: lidocaine (Xylocaine) 2 % injection 40 mg, 2 mL, Intradermal, Once, JERAMIE LawrenceP documented in this encounter Plan of Treatment Upcoming Encounters Date Type Department Care Team (Late st Contact Info) Description 07/06/2025 11:30 AM EST Office Visit [facility] OPTOMETRY [address] [place] [address] JakeJaycee roldan, OD [address] [place] [address] 07/12/2025 2:00 PM EST Office Visit [facility] MEDICINE [address] [place] [address] Ginger Perez FNP [address] [place] [address] 09/29/2025 11:30 AM EST Clinical Support [facility] [address] [place] [address] Frida Knapp, OZZY documented as of this encounter Procedures Procedure Name Priority Date/Time Associated Diagnosis Comments POCT BLANKA-14 URINE DRUG SCREEN Routine 06/28/2025 12:47 PM EDT Long-term current use of benzodiazepine documented in this encounter Results * (ABNORMAL) POCT BLANKA-14 Urine Drug Screen (06/28/2025 12:47 PM EDT) THC Positive(A) Negative Cocaine Screen, Urine Negative Negative Opiate Screen, Urine Negative Negative Methamphetamine Screen Urine Negative Negative Amphetamine Screen, Urine Negative Negative Benzodiazepines Screen, Urine Positive(A) Negative Comment:FILE KEEPER pt on Clonazepam Barbiturate Screen, Urine Negative Negative Methadone Screen, Urine Negative Negative Buprenophine Screen, Urine Negative Negative TCA, Urine Negative Negative MDMA Urine Negative Negative ng/mL Oxycodone Screen, Urine Negative Negative Phencyclidine (PCP), Urine Negative Negative Propoxyphene, Urine Negative Negative Fentanyl, Urine Negative Negative Urine Urine specimen obtained by clean catch procedure / Unknown 06/28/2025 12:47 PM EDT Narrative Frida Knapp, RN - 06/28/2025 12:47 PM EDT UTOX cup Lot#[id number] Exp. 06/08/26 Internal Pass Control [facility] POINT OF CARE TEST ENTER/EDIT ORDERABLES Final Result documented in this encounter Visit Diagnoses Diagnosis Long-term current use of benzodiazepine- Primary documented in this encounter Additional Health Concerns Assessment Noted Time PHQ-9 Depression Total Score: 13 024 11:27 AM EDT documented as of this encounter Care Teams Pipe Line Maintenance Supervisor Relationship Specialty Start Date End Date [facility] [address] [place] [id number] PCP - General Family Medicine 08/13/22 [facility] Home Care 11/01/22 documented as of this encounter
--- NOTE | 2025-06-30 13:24 | MHC.AMDMED ---
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: 60 mins Ultrasound Tech Required: No Accompanied by: Other Relationship Allergies mushroom Allergy (Verified 06/09/25 13:18) Anaphylaxis [facility] Medical History (Updated 06/09/25 @ 14:36 by Nichelle Catalan DPM) Nail dystrophy Tinea unguium Other enthesopathy of left foot and ankle Tinea pedis Injury of left great toe Pain of left great toe Stenotic cervical os Post-menopausal bleeding Hypoglycemia Fatty liver Subclinical hyperthyroidism Seizures Vitamin D deficiency Chronic pain syndrome Spondylosis 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 myelopathy Disc degeneration, lumbar Hip osteoarthritis Sacroiliitis Illiterate Morbid obesity due to excess calories Diabetes mellitus type 2, controlled, without complications Essential hypertension Hyperlipidemia LDL goal <100 Panic attacks VELASQUEZ on CPAP History of tremor Gender dysphoria Anxiety Depression Asthma Epilepsy Hypertension Surgical History History of esophagogastroduodenoscopy (EGD) Hx of laparoscopic gastric banding Family History Father CVD (cardiovascular disease) Mother Hypertension Sister Breast cancer Social History Household Members: Children and None Household Members Other:: 2 dogs Are you a primary manager long term care to a significant other at home: No Do you presently have visiting nurse or other home services: Yes Alcohol intake: former Patient Tobacco Use Status: Former Tobacco user Substance Use Type: Marijuana Female Reproductive History Menstrual Age of Menarche: 12 Assessment & Plan Assessment & Plan (1) Diabetes mellitus type 2, controlled, without complications: Comment: IDDM Code(s): E11.9 - Type 2 diabetes mellitus without complications Qualifiers: Diabetes mellitus [facility] insulin use: with [facility] use Qualified Code(s): E11.9 - Type 2 diabetes mellitus without complications; Z79.4 - alf (current) use of insulin Plan: Personal Continuous Glucose Monitor: Patients CGM information reviewed Pt reports that she has stopped Mounjaro 5 mg weekly. Episodes of hypoglycemia have improved since stopping medication. Discussed with patient the importance of eating small complex carbs meals throughout the day in order to avoid which can lead to episodes of hypoglycemia post simple carbs and larger meals. Patient reports that she has no appetite and eats small meals, at visit asked CHICKEN RAISER to joint visit since she is the one that does most of the meal prep for patient's. Patient has been referred to [facility] by Dr. Dean. Patient reports at least has no transportation it is too far away. Reviewed with patient how to treat hypoglycemia: Hypoglycemia or blood glucose under 70 use the rule of 15's: If you have your blood glucose meter test your blood glucose, if you do not have your meter still follow below instruction: Keep quick-sugar foods with you at all times.? Take 15 grams of fast acting carbohydrates. Examples are 4 ounces of fruit juice or regular soda pop, 8 ounces fat-free milk, 1 tablespoon of table sugar, honey or corn syrup, jam, one miniature box of raisins, 7-8 gumdrops or Life Savers candy, 4 glucose tablets, and glucose gel.? Retest blood glucose in 15 minutes, if blood glucose is still under 80 ,repeat rule of 15's. If blood glucose is under 50, take 30 grams of fast acting carbohydrates If you are having hypoglycemia, or insulin reaction, more that a few times a week, call MD or early childhood educator aide F/U BG check At today's visit is difficult to assess the patient's understanding of the topics discussed. Patient had a difficult time focusing on the discussion of hypoglycemia, frequently digressing into other topics. Patient able to insert sensor independently at home without issue.? Portions of this note were created using voice recognition software, please excuse any words or phrases that may have been misinterpreted. 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
--- OUTSIDE RECORDS SUMMARY | 2025-06-30 15:50 | XMS_ITS | Clinical Summary ---
Author Organization [facility] Address [address] [place] [phone] Phone Care Team Providers Care Senior Integration Architect Name Role Phone Guille Valentine NP Primary Care Provider [phone] Social History Tobacco Use Types Packs/Day Years Used Date Smoking Tobacco: Never Assessed Comments Unknown Sex and Gender Information Value Date Recorded Sex Assigned at Not on file Legal Sex Female 11:43 AM EDT Gender Identity Not on file Sexual Orientation Not on file Plan of Treatment Not on file Medical Devices Not on file Insurance [facility] C3 ACO [facility] C3 ACO C3 ACO C3 ACO C3 ACO C3 ACO C3 ACO C3 ACO [facility] C3 ACO Care Teams Senior Integration Architect Relationship Specialty Start Date End Date Guille Valentine NP [address] [place] [address] [phone] PCP - General Family Medicine 07/03/19 Additional Source Comments The information contained in this document represents components of the legal health record. It is not the complete legal health record.[facility]
--- OUTSIDE RECORDS SUMMARY | 2025-06-30 15:51 | XMS_ITS | Encounter Summary ---
Author Organization [employer] Address [address] [facility] [address] [place] [address] Care Team Providers Care Refinish Technician Name Role Phone Ana [facility] Primary Care Provider [phone] Encounter Details Date Type Department Care Team ([facility] st Contact Info) Description 12/30/2024 Orders Only [facility] [address] [place], [place] [id number] Mary Gu Social History Tobacco Use Types [...] Description 07/06/2025 11:30 AM EST Office Visit [facility] [address] [place] [address] Jake, Jaycee, OD [address] [place] [address] 07/12/2025 2:00 PM EST Office Visit [facility] [address] [place] [address] [place], [place], [facility] [address] [place] [address] 09/29/2025 11:30 AM EST Clinical Support [facility] [address] [place] [phone] Frida Knapp RN documented as of this [...] documented as of this encounter Care Teams Refinish Technician Relationship Specialty Start Date End Date Ginger Perez FNP [address] [place] [address] PCP - General Family Medicine 08/13/22 [facility] Home Care 11/01/22 documented as of this encounter
--- OUTSIDE RECORDS SUMMARY | 2025-06-30 15:51 | XMS_ITS | Encounter Summary ---
Author Organization [employer] Address [address] [facility] [address] [place] [address] Care Team Providers Care Coin Machine Servicer Repairer Name Role Phone Ana [facility] Primary Care Provider [phone] Reason for Visit * Reason Comments Med Refill Encounter Details Date Type Department Care Team ([facility] st Contact Info) Description 05/11/2024 Refill [facility] [address] [place] [address] Roma Man MD [address] [place] [address] Onychomycosis Social History Tobacco Use Types Packs/Day [...] Description 07/06/2025 11:30 AM EST Office Visit [facility] [address] [place] [address] Jaycee Joseph, OD [address] [place] [address] 07/12/2025 2:00 PM EST Office Visit [facility] [address] [place] [address] Ginger Perez FNP [address] [place] [address] 09/29/2025 11:30 AM EST Clinical Support [facility] [address] [place] [phone] Frida Knapp RN documented as of this encounter Visit Diagnoses Diagnosis Onychomycosis Dermatophytosis of nail documented in this encounter Additional Health Concerns Assessment Noted Time PHQ-9 Depression Total Score: 13 024 11:27 AM EDT documented as of this encounter Care Teams Coin Machine Servicer Repairer Relationship Specialty Start Date End Date Ginger Perez FNP [address] [place] [phone] PCP - General Family Medicine 08/13/22 [facility] Home Care 11/01/22 documented as of this encounter
--- OUTSIDE RECORDS SUMMARY | 2025-06-30 15:51 | XMS_ITS | Encounter Summary ---
Author Organization [employer] Address [address] [facility] [address] [place] [address] Care Team Providers Care Master At Arms Name Role Phone [facility] Primary Care Provider [phone] Reason for Visit * Reason Comments Med Refill Encounter Details Date Type Department Care Team ([facility] st Contact Info) Description 05/11/2025 Refill [facility] [address] [place], [place] [phone] [facility] [address] [place] [address] Mixed anxiety and depressive disorder Social History [...] the past 12 months, has t he [employer], gas, oil or water company threatened to [...] Description 07/06/2025 11:30 AM EST Office Visit [facility] [address] [place] [address] Jake, Jaycee, OD [address] [place] [address] 07/12/2025 2:00 PM EST Office Visit [facility] [address] [place] [phone] [facility] [address] [place] [address] 09/29/2025 11:30 AM EST Clinical Support [address] [address] Frida Knapp RN documented as of this encounter Visit Diagnoses Diagnosis Mixed anxiety and depressive disorder Dysthymic disorder documented in this encounter Additional Health Concerns Assessment Noted Time PHQ-9 Depression Total Score: 13 024 11:27 AM EDT documented as of this encounter Care Teams Master At Arms Relationship Specialty Start Date End Date Ginger PerezGERALD [address] [place] [address] PCP - General Family Medicine 08/13/22 [facility] Home Care 11/01/22 documented as of this encounter
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
--- OUTSIDE RECORDS SUMMARY | 2025-06-30 15:51 | XMS_ITS | Encounter Summary ---
Author Organization [employer] Address 75 [facility] 7[address] [place] [address] Care Team Providers Care Ambulatory Care Nurse Name Role Phone [facility] Primary Care Provider Reason for Visit * Reason Comments Med Refill Encounter Details Date Type Department Care Team (Late st Contact Info) Description 02/04/2025 Refill [facility] [address] [place], [place] [phone] [facility] 230 [place] [address] Type 2 diabetes mellitus with chronic kidney [...] Description 07/06/2025 11:30 AM EST Office Visit [facility] [address] [place] [address] Jake, Jaycee, OD 230 [place] [address] 07/12/2025 2:00 PM EST Office Visit [facility] 230 [place] [address] [place], [facility] 230 [place] [address] 09/29/2025 11:30 AM EST Clinical Support [address] [address] Frida Knapp RN documented as of this encounter Visit Diagnoses Diagnosis Type 2 diabetes mellitus with chronic kidney disease, with long-term current use of insulin, unspecified CKD stage (HCC) documented in this encounter Additional Health Concerns Assessment Noted Time PHQ-9 Depression Total Score: 13 024 11:27 AM EDT documented as of this encounter Care Teams Ambulatory Care Nurse Relationship Specialty Start Date End Date Ginger Perez FNP 230 [place] [address] PCP - General Family Medicine 08/13/22 [facility] [place] [facility] 11/01/22 documented as of this encounter
--- OUTSIDE RECORDS SUMMARY | 2025-06-30 15:51 | XMS_ITS | Encounter Summary ---
Author Organization [employer] Address 75 [facility] 7[address] [place] [address] Care Team Providers Care Mixing Tank Operator Name Role Phone [facility] Primary Care Provider [phone] Reason for Visit * Reason Onset Date Comments Referral 07/19/2023 Encounter Details Date Type Department Care Team ([facility] st Contact Info) Description 07/19/2023 Telephone [facility] 230 [place] [address] Atlantic [facility] 230 [place] [address] Referral Social History Tobacco Use Types Packs/Day [...] 10:29 AM EST Tc from sarah with [facility] states [facility] has not received referral. Also requesting for referral to be sent to a different location due to no availability. Any questions, contact sarah at [phone] documented in this encounter Plan of Treatment Upcoming Encounters Date Type Department Care Team (Late st Contact Info) Description 07/06/2025 11:30 AM EST Office Visit [facility] [address] [place] [address] Jaycee Joseph, OD 230 [place] [address] 07/12/2025 2:00 PM EST Office Visit [facility] [address] [place] [address] [facility] 230 [place] [address] 09/29/2025 11:30 AM EST Clinical Support [facility] [address] [place] [address] Frida Knapp, RN documented as of this encounter Visit Diagnoses Not on filedocumented in this encounter Additional Health Concerns Assessment Noted Time PHQ-9 Depression Total Score: 16 023 9:09 AM EDT documented as of this encounter Care Teams Mixing Tank Operator Relationship Specialty Start Date End Date Ginger Perez, CREATIVE COORDINATOR 230 [place] [address] PCP - General Family Medicine 08/13/22 [facility] Home Care 11/01/22 documented as of this encounter
--- OUTSIDE RECORDS SUMMARY | 2025-06-30 15:51 | XMS_ITS | Encounter Summary ---
Author Organization [employer] Address 75 [facility] [address] [place] [address] Care Team Providers Care Traveling Sales Executive Name Role Phone [facility] Primary Care Provider [phone] Reason for Visit * Reason Comments Med Refill Encounter Details Date Type Department Care Team ([facility] st Contact Info) Description 05/12/2025 Refill [facility] [address] [place], [place] [phone] [facility] [address] [place] [address] Social History Tobacco Use Types Packs/Day Years [...] 07/06/2025 11:30 AM EST Office Visit [facility] [address] [place] [address] Jake, Jaycee, OD 230 [place] [address] 07/12/2025 2:00 PM EST Office Visit [facility] 230 [place] [address] [facility], [facility] 230 [place] [address] 09/29/2025 11:30 AM EST Clinical Support [address] [address] Frida Knapp RN documented as of this encounter Visit Diagnoses Not on filedocumented in this encounter Additional Health Concerns Assessment Noted Time PHQ-9 Depression Total Score: 13 024 11:27 AM EDT documented as of this encounter Care Teams Traveling Sales Executive Relationship Specialty Start Date End Date Ginger PerezGERALD [address] [place] [address] PCP - General Family Medicine 08/13/22 [facility] Home Care 11/01/22 documented as of this encounter
--- OUTSIDE RECORDS SUMMARY | 2025-06-30 15:51 | XMS_ITS | Encounter Summary ---
Author Organization [employer] Address 75 [facility] [address] [place] [address] Care Team Providers Care Forensic Artist Name Role Phone [facility] Primary Care Provider [phone] Reason for Visit * Reason Comments Med Refill Encounter Details Date Type Department Care Team ([facility] st Contact Info) Description 11/22/2023 Refill [facility] 230 [place], [place] [phone] [facility] 230 [place] [address] Type 2 diabetes mellitus with hyperglycemia, with long-term current use of insulin ([facility]) Social History Tobacco Use Types [...] Description 07/06/2025 11:30 AM EST Office Visit [facility] [address] [place] [address] Jake, Jaycee, OD 230 [place] [address] 07/12/2025 2:00 PM EST Office Visit [facility] 230 [place] [address] [facility], [facility] 230 [place] [address] 09/29/2025 11:30 AM EST Clinical Support [facility] [address] [place] [address] Frida Knapp, OZZY documented as of this encounter Visit Diagnoses Diagnosis Type 2 diabetes mellitus with hyperglycemia, with long-term current use of insulin (HCC) documented in this encounter Additional Health Concerns Assessment Noted Time PHQ-9 Depression Total Score: 0 11/13/19 24 3:08 PM EDT documented as of this encounter Care Teams Forensic Artist Relationship Specialty Start Date End Date Ginger Perez GERALD [address] [place] [address] PCP - General Family Medicine 08/13/22 [facility] Home Care 11/01/22 documented as of this encounter
--- OUTSIDE RECORDS SUMMARY | 2025-06-30 15:51 | XMS_ITS | Encounter Summary ---
Author Organization [employer] Address [address] [place] [address] 7[address] [place] [address] Care Team Providers Care Molding Supervisor Name Role Phone Ginger Perez [facility] Primary Care Provider [phone] Encounter Details Date Type Department Care Team ([facility] st Contact Info) Description 02/21/2023 Telephone [facility] 230 [place], [place] [phone] [facility] 230 [place], [place] [phone] Social History Tobacco Use Types Packs/Day Years [...] - 02/25/2023 9:57 AM EDT T/C to [phone] for below message, No answer. LVM to call back on [phone]. As per last message , PCP referred pt. For Physical therapy evaluation. * Telephone Encounter - Mirta Vladimir - 02/21/2023 3:11 PM EDT Tc from [facility] requesting a script for Albuterol for nebulize machine. Director Of Institutional Giving check on med list but nothing. Also [facility] requesting a referral for Occupational Therapy and Physical Therapy in home. To contact ramya at [phone] Perez documented in this encounter Plan of Treatment Upcoming Encounters Date Type Department Care Team (Late st Contact Info) Description 07/06/2025 11:30 AM EST Office Visit [facility] [address] [place] [address] Jaycee Joseph, OD 230 [place] [address] 07/12/2025 2:00 PM EST Office Visit [facility] [address] [place] [address] Ginger Perez FNP [address] [place] [address] 09/29/2025 11:30 AM EST Clinical Support [facility] [address] [place] [address] Frida Knapp, OZZY documented as of this encounter Visit Diagnoses Not on filedocumented in this encounter Additional Health Concerns Assessment Noted Time PHQ-9 Depression Total Score: 9 01/25/20 23 1:11 PM EDT documented as of this encounter Care Teams Molding Supervisor Relationship Specialty Start Date End Date Ginger Perez FNP [address] [place] [address] PCP - General Family Medicine 08/13/22 [facility] [place] 11/01/22 documented as of this encounter
--- OUTSIDE RECORDS SUMMARY | 2025-06-30 15:51 | XMS_ITS | Encounter Summary ---
Author Organization [employer] Address 75 [facility] 7[address] [place] [address] Care Team Providers Care Digital Photographic Printer Name Role Phone [facility] Primary Care Provider [phone] Reason for Visit * Reason Onset Date Comments Durable Medical Equipment 05/31/2025 Encounter Details Date Type Department Care Team ([facility] st Contact Info) Description 05/31/2025 Telephone [facility] 230 [place] [address] [facility] 230 [place] [address] Durable Medical Equipment Social History Tobacco Use [...] Telephone Encounter - Natividad Stinson RN - 06/29/2025 11:43 AM EDT TC placed to pt. Informed pt. DME rxs that were requested will need to be further discussed at f/upappointment 07/12 due to needing further details and documentation on diagnoses in order to be covered. Pt. Verbalizes understanding to this. Pt. Is also requesting a referral to in Home PT. Pt. Reports she has been going to [facility] for [place] as referred however reports there is always a man and a woman working there having personal conversationswhile she is there and not attending to her. Pt. Will not return there. Pt. Reports since she does not leave the house, PLANT OPERATIONS MANAGER advised her she could get in home PT. Pt. Will plan to discuss this at appointment as well. Added to appointment details * Telephone Encounter - Michelle Benavides - 05/31/2025 10:19 AM EDT Tc from [facility] requesting a new scrip for DME - adult diapers size Large - bilateral forearm crutches - bilateral knee braces fro both knees documented in this encounter Plan of Treatment Upcoming Encounters Date Type Department Care Team (Late st Contact Info) Description 07/06/2025 11:30 AM EST Office Visit [facility] [address] [place] [address] Jake, Jaycee, OD 230 [place] [address] 07/12/2025 2:00 PM EST Office Visit [facility] [address] [place] [address] [facility] 230 [place] [address] 09/29/2025 11:30 AM EST Clinical Support [facility] [address] [place] [address] Frida Knapp, RN documented as of this encounter Visit Diagnoses Not on filedocumented in this encounter Additional Health Concerns Assessment Noted Time PHQ-9 Depression Total Score: 13 024 11:27 AM EDT documented as of this encounter Care Teams Digital Photographic Printer Relationship Specialty Start Date End Date Ginger Perez [facility] 230 [place] [address] PCP - General Family Medicine 08/13/22 [facility] [place] 11/01/22 documented as of this encounter
--- OUTSIDE RECORDS SUMMARY | 2025-06-30 15:51 | XMS_ITS | Encounter Summary ---
Demographics Address [address] [facility] [address] [place] [address] Mobile Phone Work Phone Home Phone Email Address Preferred Language en Marital Status Single Taoism Affiliation Unknown Race Other Race Ethnic Group Unknown Author Organization [employer] Address 75 [facility] 7t [place] [address] Care Team Providers Care Panel Gluer Name Role Phone Ginger Perez [facility] Primary Care Provider [phone] Encounter Details Date Type Department Care Team (Latest Contact Info) Description 06/28/2025 Travel Social History Tobacco Use Types Packs/Day [...] Description 07/06/2025 11:30 AM EST Office Visit [facility] [address] [place] [address] Jaycee Joseph, OD 230 [place] [address] 07/12/2025 2:00 PM EST Office Visit [facility] [address] [place] [address] Ginger Perez FNP 230 [place] [address] 09/29/2025 11:30 AM EST Clinical Support [facility] [address] [place] [address] Frida Knapp, OZZY documented as of this encounter Visit Diagnoses Not on filedocumented in this encounter Additional Health Concerns Assessment Noted Time PHQ-9 Depression Total Score: 13 024 11:27 AM EDT documented as of this encounter Care Teams Panel Gluer Relationship Specialty Start Date End Date Ginger Perez FNP [address] [place] [address] PCP - General Family Medicine 08/13[facility]22 [facility] documented as of this encounter
--- OUTSIDE RECORDS SUMMARY | 2025-06-30 15:51 | XMS_ITS | Encounter Summary ---
Author Organization [employer] Address 75 [facility] 7[address] [place] [address] Care Team Providers Care Stonecutter Name Role Phone [facility] Primary Care Provider [phone] Reason for Visit * Reason Onset Date Comments Durable Medical Equipment 12/18/2022 Encounter Details Date Type Department Care Team ([facility] st Contact Info) Description 12/18/2022 Telephone [facility] 230 [place] [address] [facility] 230 [place] [address] Durable Medical Equipment Social History Tobacco Use [...] Thank you. * Telephone Encounter - Brenda Rosa - 12/18/2022 2:22 PM EDT Tc from sarah from [facility] requesting a new nebulizer machine . States pt informed old one stopped working . documented in this encounter Plan of Treatment Upcoming Encounters Date Type Department Care Team (Late st Contact Info) Description 07/06/2025 11:30 AM EST Office Visit [facility] [address] [place] [address] Jake, Jaycee, OD 230 [place] [address] 07/12/2025 2:00 PM EST Office Visit [facility] 230 [place] [address] BarneyGinger [facility] [address] [place] [address] 09/29/2025 11:30 AM EST Clinical Support [facility] 230 [place] [address] Frida Knapp RN documented as of this encounter Visit Diagnoses Not on filedocumented in this encounter Additional Health Concerns Assessment Noted Time PHQ-9 Depression Total Score: 0 12/12/19 23 3:58 PM EDT documented as of this encounter Care Teams Stonecutter Relationship Specialty Start Date End Date Ginger Perez FNP [address] [place] [address] PCP - General Family Medicine 08/13/22 [facility] [place] Care 11/01/22 documented as of this encounter
--- OUTSIDE RECORDS SUMMARY | 2025-06-30 15:51 | XMS_ITS | Encounter Summary ---
Author Organization [facility] Address [address] [facility] [address] [place] [address] Phone Care Team Providers Care Carpenter Apprentice Name Role Phone Guille Valentine NP Primary Care Provider Reason for Referral * Consultation (Elective) - Closed Specialty Diagnoses / Procedures Referred By Contjaden t Referred To Contact Neurology Diagnoses Tremor System, Provider Not In, [facility] [address] [address] Phone: tel: Referral ID Status Reason Start Date Expiration Date Visits Re quested Visits Authorized [id number] Closed 08/11/2020 08/11/2021 1 1 Encounter Details Date Type Department Care Team (Late st Contact Info) Description 08/11/2020 Transcribe Orders [facility] Department of Neurology [address] [place] [address], 8th Floor, [address] [place] [address] System, Provider [place] In, [place] [address] Tremor (Primary Dx) Social History Tobacco Use [...] Associated Diagnoses Order Schedule Ambulatory referral to [facility] Outpatient Referral Routine Tremor Ordered: 08/11/2020 documented as of this encounter Visit Diagnoses Diagnosis Tremor- Primary Abnormal involuntary movements documented in this encounter Care Teams Carpenter Apprentice Relationship Specialty Start Date End Date Guille Valentine NP 230 [place] [address] PCP - General Family Medicine 07/03/19 documented as of this encounter Additional Source Comments The information contained in this document represents components of the legal health record. It is not the complete legal health record.[facility]
--- OUTSIDE RECORDS SUMMARY | 2025-06-30 15:51 | XMS_ITS | Encounter Summary ---
Author Organization [employer] Address [address] [facility] 7[address] [place] [address] Care Team Providers Care Linen Keeper Name Role Phone Ana [facility] Primary Care Provider [phone] Encounter Details Date Type Department Care Team ([facility] st Contact Info) Description 12/20/2022 Telephone [facility] 230 [place], [place] [phone] [place] 230 [place], [place] [phone] Social History Tobacco Use Types Packs/Day Years [...] - 12/20/2022 4:16 PM EDT Tc from [facility] requesting status on orders that needed to be sign by PCP on oct [phone] documented in this encounter Plan of Treatment Upcoming Encounters Date Type Department Care Team (Late st Contact Info) Description 07/06/2025 11:30 AM EST Office Visit [facility] [address] [place] [address] Jaycee Joseph, OD 230 [place] [address] 07/12/2025 2:00 PM EST Office Visit [facility] 230 [place] [address] Ginger Perez [facility] 230 [place] [address] 09/29/2025 11:30 AM EST Clinical Support [facility] 230 [place] [address] Frida Knapp, RN documented as of this encounter Visit Diagnoses Not on filedocumented in this encounter Additional Health Concerns Assessment Noted Time PHQ-9 Depression Total Score: 0 12/12/19 3:58 PM EDT documented as of this encounter Care Teams Linen Keeper Relationship Specialty Start Date End Date Ginger Perez [facility] 230 [place] [address] PCP - General Family Medicine 08/13/22 [facility] Home Care 11/01/22 documented as of this encounter
--- OUTSIDE RECORDS SUMMARY | 2025-06-30 15:51 | XMS_ITS | Encounter Summary ---
Author Organization [employer] Address [address] [facility] [address] [place] [address] Care Team Providers Care Photoradio Operator Name Role Phone [facility] Primary Care Provider [phone] Reason for Visit * Reason Comments Med Refill Encounter Details Date Type Department Care Team ([facility] st Contact Info) Description 05/22/2024 Refill [facility] 230 [place], [place] [phone] [facility] 230 [place] [address] Low back pain at multiple sites Social [...] Description 07/06/2025 11:30 AM EST Office Visit [facility] OPT[facility] [address] [place] [address] Jaycee Joseph, OD 230 [place] [address] 07/12/2025 2:00 PM EST Office Visit [facility]IC[facility] 230 [place] [address] Ginger Perez FNP [address] [place] [address] 09/29/2025 11:30 AM EST Clinical Support [facility] MEDICINE [address] [place] [address] Frida Knapp RN documented as of this encounter Visit Diagnoses Diagnosis Low back pain at multiple sites documented in this encounter Additional Health Concerns Assessment Noted Time PHQ-9 Depression Total Score: 13 024 11:27 AM EDT documented as of this encounter Care Teams Photoradio Operator Relationship Specialty Start Date End Date Ginger Perez FNP [address] [place] [address] PCP - General Family Medicine 08/13/22 [facility] Home Care 11/01/22 documented as of this encounter
--- OUTSIDE RECORDS SUMMARY | 2025-06-30 15:51 | XMS_ITS | Encounter Summary ---
Author Organization [employer] Address [address] [facility] [address] [place] [address] Care Team Providers Care Cloth Examiner Machine Name Role Phone Ginger Perez [facility] Primary Care Provider [phone] Reason for Visit * Reason Comments Med Refill Encounter Details Date Type Department Care Team (Late st Contact Info) Description 01/14/2025 Refill [facility] 230 [place], [place] [phone] Donna Dow, 230 [place], [place] [phone] Mixed anxiety and depressive disorder Social History [...] the past 12 months, has t he Strap, gas, oil or water company threatened to [...] Visit [facility] [address] [place] [address] Jake, Jaycee, OD 230 [place] [address] 07/12/2025 2:00 PM EST Office Visit [facility] [address] [place] [address] [facility], [facility] [address] [place] [address] 09/29/2025 11:30 AM EST Clinical Support [address] [address] Frida Knapp RN documented as of this encounter Visit Diagnoses Diagnosis Mixed anxiety and depressive disorder Dysthymic disorder documented in this encounter Additional Health Concerns Assessment Noted Time PHQ-9 Depression Total Score: 13 024 11:27 AM EDT documented as of this encounter Care Teams Cloth Examiner Machine Relationship Specialty Start Date End Date Ana GERALD Miles [address] [place] [address] PCP - General Family Medicine 08/13/22 [facility] Home Care 11/01/22 documented as of this encounter
--- OUTSIDE RECORDS SUMMARY | 2025-06-30 15:51 | XMS_ITS | Encounter Summary ---
Author Organization [email or web address] Address [address] [facility] [address] [place] [address] Care Team Providers Care Ui Developer With Angular Js Name Role Phone [place] [facility] Primary Care Provider [phone] Reason for Visit * Reason Onset Date Comments Durable Medical Equipment 11/12/2024 Encounter Details Date Type Department Care Team ([facility] st Contact Info) Description 11/12/2024 Telephone [facility] MEDICINE 230 [place] [address] [facility] 230 [place] [address] Durable Medical Equipment Social History Tobacco Use [...] other 2 boxes that was never received. [phone] * Telephone Encounter - Jazzmine Dukes - 11/12/2024 2:57 PM EDT Tc from pt stating received two boxes of vanilla ensure and normally she received four boxes. documented in this encounter Plan of Treatment Upcoming Encounters Date Type Department Care Team (Late st Contact Info) Description 07/06/2025 11:30 AM EST Office Visit [facility] OPTOMETRY [address] [place] [address] Jaycee Joseph, OD 230 [place] [address] 07/12/2025 2:00 PM EST Office [place] [address] Ginger Perez FNP [address] [place] [address] 09/29/2025 11:30 AM EST Clinical Support [facility] [place] [address] Frida Knapp RN documented as of this encounter Visit Diagnoses Not on filedocumented in this encounter Additional Health Concerns Assessment Noted Time PHQ-9 Depression Total Score: 13 024 11:27 AM EDT documented as of this encounter Care Teams Ui Developer With Angular Js Relationship Specialty Start Date End Date Ginger Perez FNP [place] [address] PCP - General Family Medicine 08/13/22 [facility] [facility] [place] 11/01/22 documented as of this encounter
--- OUTSIDE RECORDS SUMMARY | 2025-06-30 15:51 | XMS_ITS | Encounter Summary ---
Author Organization [employer] Address 75 [facility] [address] [address] Care Team Providers Care Hat Block Bench Hand Name Role Phone [facility] Primary Care Provider [phone] Reason for Visit * Reason Onset Date Comments Durable Medical Equipment 12/18/2022 Encounter Details Date Type Department Care Team ([facility] st Contact Info) Description 12/18/2022 Telephone [facility] MEDICINE [address] [place] [address] [facility] 230 [place] [address] Durable Medical Equipment Social History Tobacco Use [...] the largest size for disposable bed pads. Driver License Technician suggested a script for reusable bed pads [...] 07/06/2025 11:30 AM EST Office Visit [facility] OPTOMETRY [address] [place] [address] Jaycee Joseph, OD 230 [place] [address] 07/12/2025 2:00 PM EST Office Visit [facility] MEDICINE 230 [place] [address] Ginger Perez FNP 230 [place] [address] 09/29/2025 11:30 AM EST Clinical Support [facility] 230 [place] [address] Frida Knapp, OZZY documented as of this encounter Visit Diagnoses Not on filedocumented in this encounter Additional Health Concerns Assessment Noted Time PHQ-9 Depression Total Score: 0 12/12/19 23 3:58 PM EDT documented as of this encounter Care Teams Hat Block Bench Hand Relationship Specialty Start Date End Date Ginger Perez FNP 230 [place] [address] PCP - General Family Medicine 08/13/22 [facility] [place] 11/01/22 documented as of this encounter
--- OUTSIDE RECORDS SUMMARY | 2025-06-30 15:51 | XMS_ITS | Encounter Summary ---
Author Organization [employer] Address [address] [facility] [address] [address] Care Team Providers Care Casting Coordinator Name Role Phone [facility] Primary Care Provider [phone] Reason for Visit * Reason Onset Date Comments Medication Question 11/12/2024 Med Refill 11/12/2024 Encounter Details Date Type Department Care Team ([facility] st Contact Info) Description 11/12/2024 Telephone [facility] MEDICINE 230 [place] [address] [facility] 230 [place] [address] Medication Question; Med Refill Social History Tobacco [...] from pt regarding Lidocaid Patch and Clonazepam. Coil Winding Supervisor advised pt med refill request was sent yesterday. documented in this encounter Plan of Treatment Upcoming Encounters Date Type Department Care Team (Late st Contact Info) Description 07/06/2025 11:30 AM EST Office Visit [facility] OPTOMETRY 267 [place] [address] Jake, Jaycee, OD 230 [place] [address] 07/12/2025 2:00 PM EST Office Visit [facility] MEDICINE 230 [place] [address] Earlimart, Ginger, HYDRO EXCAVATION OPERATOR [address] [place] [address] 09/29/2025 11:30 AM EST Clinical Support [facility] MEDICINE [address] [facility] [place] [address] Frida Knapp, RN documented as of this encounter Visit Diagnoses Not on filedocumented in this encounter Additional Health Concerns Assessment Noted Time PHQ-9 Depression Total Score: 13 024 11:27 AM EDT documented as of this encounter Care Teams Casting Coordinator Relationship Specialty Start Date End Date Ginger Perez FNP [address] [facility] [place] [address] PCP - General Family Medicine 08/13/22 [facility] [place] 11/01/22 documented as of this encounter
--- OUTSIDE RECORDS SUMMARY | 2025-06-30 15:51 | XMS_ITS | Encounter Summary ---
Demographics Address [address] [facility] [address] [place] [address] Mobile Phone Work Phone Home Phone Email Address Preferred Language en Marital Status Single Roman Catholic Affiliation Unknown Race Other Race Ethnic Group Unknown Author Organization [employer] Address [address] [facility] 7t [place] [address] Care Team Providers Care Bulk Sealer Operator Name Role Phone Ana [facility] Primary Care Provider [phone] Encounter Details Date Type Department Care Team (Late st Contact Info) Description 12/22/2024 Orders Only [facility] 230 [place], [place] [id number] ProviderDalton MD Social History Tobacco Use Types [...] know I am going to refer to ROLLER PRINT TENDER for further evaluation. Thanks! documented in this encounter Plan of Treatment Upcoming Encounters Date Type Department Care Team (Late st Contact Info) Description 07/06/2025 11:30 AM EST Office Visit [facility] OPTOMETRY 267 [place] [address] Jake, Jaycee, OD 230 [place] [address] 07/12/2025 2:00 PM EST Office Visit [facility] MEDICINE [address] [place] [address] DousmanGinger canales, INSPECTOR FLOOR SUB ASSEMBLY 230 [place] [address] 09/29/2025 11:30 AM EST Clinical Support [address] [address] Frida Knapp, RN documented as of this encounter Procedures [...] documented as of this encounter Care Teams Bulk Sealer Operator Relationship Specialty Start Date End Date Ginger Perez FNP [address] [place] [address] PCP - General Family Medicine 08/13/22 [facility] [place] 11/01/22 documented as of this encounter
--- OUTSIDE RECORDS SUMMARY | 2025-06-30 15:51 | XMS_ITS | Encounter Summary ---
Author Organization [employer] Address [address] [facility] 7t [place] [address] Care Team Providers Care Natural Gas Inspector Name Role Phone Ana [facility] Primary Care Provider [phone] Reason for Visit * Reason Comments Med Refill Encounter Details Date Type Department Care Team ([facility] st Contact Info) Description 05/22/2024 Refill [facility] 230 [place] [address] Roma Man MD 230 [place] [address] Onychomycosis Social History Tobacco Use Types Packs/Day [...] 07/06/2025 11:30 AM EST Office Visit [facility] OPTOMETRY [address] [place] [address] Jaycee Joseph, OD 230 [place] [address] 07/12/2025 2:00 PM EST Office Visit [facility] MEDICINE 230 [place] [address] Ginger Perez FNP 230 [place] [address] 09/29/2025 11:30 AM EST Clinical Support [facility] MEDICINE [address] [place] [address] Frida Knapp RN documented as of this encounter Visit Diagnoses Diagnosis Onychomycosis Dermatophytosis of nail documented in this encounter Additional Health Concerns Assessment Noted Time PHQ-9 Depression Total Score: 13 024 11:27 AM EDT documented as of this encounter Care Teams Natural Gas Inspector Relationship Specialty Start Date End Date Ginger Perez FNP [address] [place] [address] PCP - General Family Medicine 08/13/22 [facility] Home Care 11/01/22 documented as of this encounter
--- OUTSIDE RECORDS SUMMARY | 2025-06-30 15:51 | XMS_ITS | Encounter Summary ---
Author Organization [employer] Address [address] [facility] [address] [address] Care Team Providers Care Exercise Manager Name Role Phone [facility] Primary Care Provider [phone] Reason for Visit * Reason Comments Med Refill Encounter Details Date Type Department Care Team ([facility] st Contact Info) Description 06/25/2023 Refill [facility] MEDICINE 230 [place], [place] [phone] [facility] 230 [place] [address] Muscle spasm Social History Tobacco Use Types [...] Description 07/06/2025 11:30 AM EST Office Visit [facility] OPTOMETRY [address] [place] [address] JakeJaycee roldan, OD 230 [place] [address] 07/12/2025 2:00 PM EST Office Visit [facility] MEDICINE [address] [place] [address] Ginger Perez [facility] 230 [place] [address] 09/29/2025 11:30 AM EST Clinical Support [facility] 230 [place] [address] Frida Knapp RN documented as of this encounter Visit Diagnoses Diagnosis Muscle spasm Spasm of muscle documented in this encounter Additional Health Concerns Assessment Noted Time PHQ-9 Depression Total Score: 16 023 9:09 AM EDT documented as of this encounter Care Teams Exercise Manager Relationship Specialty Start Date End Date Ginger Perez FNP 230 [place] [address] PCP - General Family Medicine 08/13/22 [facility] Home Care 11/01/22 documented as of this encounter
--- OUTSIDE RECORDS SUMMARY | 2025-06-30 15:51 | XMS_ITS | Encounter Summary ---
Author Organization [employer] Address [address] [facility] [address] [address] Care Team Providers Care Hvac Service Manager Name Role Phone [facility] Primary Care Provider [phone] Reason for Visit * Reason Comments Med Refill Encounter Details Date Type Department Care Team ([facility] st Contact Info) Description 06/16/2025 Refill [facility] [address] [place], [place] [phone] [facility] [address] [place] [address] Other chronic pain Social History Tobacco Use [...] Description 07/06/2025 11:30 AM EST Office Visit [facility] OPTOMETRY [address] [place] [address] Jake, Jaycee, OD 230 [place] [address] 07/12/2025 2:00 PM EST Office Visit [facility] MEDICINE [address] [place] [address] [facility] 230 [place] [address] 09/29/2025 11:30 AM EST Clinical Support [address] [address] Frida Knapp RN documented as of this encounter Visit Diagnoses Diagnosis Other chronic pain documented in this encounter Additional Health Concerns Assessment Noted Time PHQ-9 Depression Total Score: 13 024 11:27 AM EDT documented as of this encounter Care Teams Hvac Service Manager Relationship Specialty Start Date End Date Ginger Perez NEWS LIBRARY DIRECTOR 230 [place] [address] PCP - General Family Medicine 08/13/22 [facility] [place] 11/01/22 documented as of this encounter
--- OUTSIDE RECORDS SUMMARY | 2025-06-30 15:51 | XMS_ITS | Encounter Summary ---
Author Organization [employer] Address 75 [facility] [address] [place] [address] Care Team Providers Care Guest History Clerk Name Role Phone Hyder [facility] Primary Care Provider [phone] Encounter Details Date Type Department Care Team (Late Contact Info) Description 08/22/2022 Refill [facility] MEDICINE 230 [place], [place] [phone] Hyder [facility] 230 [place] [address] Muscle spasm Social History Tobacco Use Types [...] Department Care Team (Late Contact Info) Description 07/06/2025 11:30 AM EST Office Visit [facility] OPTOMETRY 267 [place], [place] [phone] Jaycee Joseph, OD 230 [place] [address] 07/12/2025 2:00 PM EST Office Visit [address] [address] Ginger Perez FNP 230 [place] [address] 09/29/2025 11:30 AM EST Clinical Support [address] [address] Frida Knapp RN documented as of this encounter Visit Diagnoses Diagnosis Muscle spasm Spasm of muscle documented in this encounter Additional Health Concerns Assessment Noted Time PHQ-9 Depression Total Score: 9 08/21/20 22 10:14 AM EST documented as of this encounter Care Teams Guest History Clerk Relationship Specialty Start Date End Date Ginger Perez [facility] [address] [place] [address] PCP - General Family Medicine 08/13/22 [facility] Home Care 11/01/22 documented as of this encounter
--- OUTSIDE RECORDS SUMMARY | 2025-06-30 15:52 | XMS_ITS | Encounter Summary ---
Author Organization [employer] Address [address] [facility] [address] [place] [address] Care Team Providers Care Bone Density Technician Name Role Phone [facility] Primary Care Provider [phone] Reason for Visit * Reason Onset Date Comments Nurse Triage 10/07/2023 Encounter Details Date Type Department Care Team ([facility] st Contact Info) Description 10/07/2023 Telephone [facility] MEDICINE 230 [place] [address] [facility] 230 [place] [address] Nurse Triage Social History Tobacco Use Types [...] 3:17 PM EST TC placed to [facility] CS, Ct scan rescheduled to 10/10/23 at [...] still having kidney pain . Patient speaks [place]. Advised triage nurse will call patient back. documented in this encounter Plan of Treatment Upcoming Encounters Date Type Department Care Team (Late st Contact Info) Description 07/06/2025 11:30 AM EST Office Visit [facility] OPTOMETRY [address] [place] [address] Jaycee Joseph, OD 230 [place] [address] 07/12/2025 2:00 PM EST Office Visit [facility] MEDICINE 230 [place] [address] Ginger Perez FNP [address] [place] [address] 09/29/2025 11:30 AM EST Clinical Support [facility] [address] [place] [address] Frida Knapp, RN documented as of this encounter Visit Diagnoses Not on filedocumented in this encounter Additional Health Concerns Assessment Noted Time PHQ-9 Depression Total Score: 0 10/03/19 24 10:12 AM EST documented as of this encounter Care Teams Bone Density Technician Relationship Specialty Start Date End Date Ginger Perez FNP [address] [place] [address] PCP - General Family Medicine 08/13/22 [facility] [place] 11/01/22 documented as of this encounter
--- OUTSIDE RECORDS SUMMARY | 2025-06-30 15:52 | XMS_ITS | Clinical Summary ---
Author Organization [address] [facility] Address [address] [place] [address] Phone Care Team Providers Care Auto Painter Name Role Phone [facility] Primary Care Provider [phone] Allergies Active Allergy Reactions Criticality Noted Date [...] DAY 30 tablet 5 03/10/20 25 Active zinc gluconate 50 mg tabletIndications :Postoperative malabsorption TAKE 1 TABLET BY MOUTH DAILY 30 tablet 04/24/20 25 Active acetaminophen (TYLENOL) 500 mg tablet TAKE 2 TABLETS BY MOUTH EVERY 8 HOURS 180 tablet 1 05/05/20 25 Active nutritional drink (Ensure High Protein) liquidIndications :Postsurgical malabsorption, not elsewhere classified TAKE 333 ML BY MOUTH TWICE DAILY 77107 mL 2 06/04/20 25 Active simethicone (MYLICON) 80 mg chewable tablet CHEW AND SWALLOW 1 TABLET BY MOUTH EVERY 6 HOURS NEEDED FOR GAS 120 tablet 1 06/11/20 25 Active simethicone (MYLICON) 80 mg chewable tablet CHEW & SWALLOW 1 TABLET EVERY 6 HOURS NEEDED FOR GAS 120 tablet 1 04/07/20 25 025 Discontinued nutritional drink (Ensure High Protein) liquidIndications :Postsurgical malabsorption, not elsewhere classified TAKE 333 ML BY MOUTH TWICE DAILY 1200 mL 2 04/21/20 25 025 Discontinued Active Problems Problem Noted Date Diagnosed Date Anxiety 02/16/2025 Depression 02/16/2025 Severe obesity ([facility] V24, [facility] V28) 2024 Complex sleep apnea [...] Overview (02/16/2025): Compliant with BiPAP Followed [facility] neurology and sleep clinic. Dr. 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 EEG's normal. Per neurology notes, possible dyskenisa s/t hx of antipsychotic medications which patient is no longer taking. Not currently taking any anti- seizure medications. No seizure episodes >2 months. Episodes triggered by emotional stress. Chronic post-traumatic stress disorder Diabetes mellitus ([facility] V24, [facility] V28) Headache 05/25/2020 Essential hypertension 05/25/2020 Mixed hyperlipidemia 05/25/2020 Seizures ([facility] V24, [facility] V28) 05/25/2020 Coarse tremors 11/12/2019 Hypertensive disorder [...] Team Description 04/15/2025 Telephone Bariatric Surgery - [address] [place] [address] Omer Beaver MD from Last 3 Months Surgical History Surgery Date Site/Laterality Comments LAPAROSCOPIC GASTRIC BANDING 2011 and 01/15/2014 PROCEDURE: LAP ADJUSTABLE GASTRIC BAND; COMMENT: first band slipped, was replaced Medical History Medical History Date Comments Anxiety DX:Anxiety Asthma DX:Asthma Depression DX:Depression Diabetes mellitus type 2, uncomplicated ([facility] V24, [facility] V28) DX:Diabetes mellitus type 2, uncomplicated (HCC) Hypertension DX:Hypertension LAP-BAND surgery status 12/02/2018 DX:LAP-B AND surgery status; COMMENT: x2 Morbid obesity with BMI of 5 0.0-59.9, adult ([facility] V24, [facility] V28) 12/02/2018 DX:Morbid obesity wit h BMI of 50.0-59.9, adult (HCC) VELASQEUZ (obstructive sleep apnea) DX :VELASQUEZ (obstructive sleep [...] PM EST Office Visit Bariatric Surgery - [address] [place] [address] Omer Beaver MD [address] [place] [address] Health Maintenance Due Date Last Done Comments Breast Cancer Screening 1965 Colorectal Cancer Screening: Colonoscopy 1963 Diabetes: Annual Foot Exam 1973 Diabetes: Annual Retina Eye Exam 1973 RSV Immunization Adult Patients (1 - Risk 50-74 years 1-dose series) 2013 Hepatitis B Vaccines (3 of 3 - 19+ 3-dose series) 11/04/2019 06/25/2019, 05/06/2019 Zoster Vaccines (2 of 2) 06/07/2023 04/12/2023 Diabetes: Annual Urine Albumin-Creatinine Ratio (uACR) 03/31/2024 [...] topic Insurance MEDICAID - [place] Care Teams Auto Painter Relationship Specialty Start Date End Date [facility] 230 [facility] 1 [place] [address] PCP - General 12/18/23
--- OUTSIDE RECORDS SUMMARY | 2025-06-30 15:52 | XMS_ITS | Encounter Summary ---
Author Organization [employer] Address [address] [facility] [address] [address] Care Team Providers Care Acid Loader Name Role Phone ReptonGinger canales [facility] Primary Care Provider Encounter Details Date Type Department Care Team ([facility] st Contact Info) Description 04/19/2025 Telephone [facility] MEDICINE 230 [place], [place] [phone] [place] 230 [place], [place] [phone] Social History Tobacco Use Types Packs/Day Years [...] 07/06/2025 11:30 AM EST Office Visit [facility] OPTOMETRY [address] [place] [address] Jaycee Joseph, OD 230 [place] [address] 07/12/2025 2:00 PM EST Office Visit [facility] MEDICINE [address] [place] [address] Ginger Perez FNP 230 [place] [address] 09/29/2025 11:30 AM EST Clinical Support [facility] MEDICINE [address] [place] [address] Frida Knapp RN documented as of this encounter Visit Diagnoses Not on filedocumented in this encounter Additional Health Concerns Assessment Noted Time PHQ-9 Depression Total Score: 13 024 11:27 AM EDT documented as of this encounter Care Teams Acid Loader Relationship Specialty Start Date End Date Ginger Perez FNP 230 [place] [address] PCP - General Family Medicine 08/13/22 [facility] [place] 11/01/22 documented as of this encounter
--- OUTSIDE RECORDS SUMMARY | 2025-06-30 15:52 | XMS_ITS | Encounter Summary ---
Author Organization [employer] Address [address] [facility] [address] [address] Care Team Providers Care Tufter Hand Name Role Phone [facility] Primary Care Provider [phone] Reason for Visit * Reason Onset Date Comments Nurse Triage 08/18/2024 Encounter Details Date Type Department Care Team ([facility] st Contact Info) Description 08/18/2024 Telephone [facility] MEDICINE [address] [place] [address] [facility] 230 [place] [address] Nurse Triage Social History Tobacco Use Types [...] AM EST Tc from pt returning call [phone] * Telephone Encounter - Francie Au RN - 08/18/2024 11:47 AM EST Triage call Pt reports abnormal vaginal bleeding which has been occurring for last several months. Pt reports spotting started yesterday and usually this is gone in a day. This time it is the second day of this spotting and drainage is black in color. Pt denies any other symptoms. 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 advised to call to see [...] Description 07/06/2025 11:30 AM EST Office Visit [facility] OPTOMETRY [address] [place] [address] Jaycee Joseph, OD 230 [place] [address] 07/12/2025 2:00 PM EST Office Visit [facility] MEDICINE 230 [place] [address] Ginger Perez FNP [address] [place] [address] 09/29/2025 11:30 AM EST Clinical Support [facility] MED[facility] 230 [facility] [place] [address] Frida Knapp, RN documented as of this encounter Visit Diagnoses Not on filedocumented in this encounter Additional Health Concerns Assessment Noted Time PHQ-9 Depression Total Score: 13 024 11:27 AM EDT documented as of this encounter Care Teams Tufter Hand Relationship Specialty Start Date End Date Ginger Perez FNP 230 [facility] [place] [address] PCP - General Family Medicine 08/13/22 [facility] Home Care 11/01/22 documented as of this encounter
--- OUTSIDE RECORDS SUMMARY | 2025-06-30 15:52 | XMS_ITS | Encounter Summary ---
Author Organization [employer] Address 75 [facility] [address] [place] [address] Care Team Providers Care Acid Purifier Name Role Phone [facility] Primary Care Provider [phone] Reason for Visit * Reason Onset Date Comments Call Back Request 10/09/2024 Encounter Details Date Type Department Care Team ([facility] st Contact Info) Description 10/09/[address] [facility] MEDICINE [address] [place] [address] [facility] 230 [place] [address] Call Back Request Social History Tobacco Use [...] the past 12 months, has t he [employer], gas, oil or water [employer] threatened to shut off services in your [...] refuses to perform it. Any questions contact: [phone] documented in this encounter Plan of Treatment Upcoming Encounters Date Type Department Care Team (Late st Contact Info) Description 07/06/2025 11:30 AM EST Office Visit [facility] OPTOMETRY [address] [place] [address] Jaycee Joseph, OD [address] [place] [address] 07/12/2025 2:00 PM EST Office Visit [facility] MEDICINE [address] [place] [address] [facility] [address] [place] [address] 09/29/2025 11:30 AM EST Clinical Support [facility] [address] [place] [address] Frida Knapp, RN documented as of this encounter Visit Diagnoses Not on filedocumented in this encounter Additional Health Concerns Assessment Noted Time PHQ-9 Depression Total Score: 13 024 11:27 AM EDT documented as of this encounter Care Teams Acid Purifier Relationship Specialty Start Date End Date Three SpringsGinger [facility] [address] [place] [address] PCP - General Family Medicine 08/13/22 [facility] [place] [facility] 11/01/22 documented as of this encounter
== END 2025-06-30 13:37 | disposition home or self-care (01) ==
LOC: HO.ENCR 12:33
PROVIDERS: PCP Registered Nurse; Visit Provider Registered Nurse Diabetes Educator
DX: E11.9 Type 2 diabetes mellitus without complications (principal); Z79.4 Long term (current) use of insulin

== ENCOUNTER → 2025-06-30 12:33 | Outpatient (BNVA) | payer MEDICAID, SELFPAY | PROVIDERS: PCP Registered Nurse; Visit Provider Registered Nurse Diabetes Educator | DX: E11.9 Type 2 diabetes mellitus without complications (principal); Z79.4 Long term (current) use of insulin | CPT/HCPCS: 99211 ==

== ENCOUNTER 2025-07-12 14:39 | Outpatient (REF) | payer MEDICAID, SELFPAY ==
--- NOTE | ~2025-07-12 | XR_ITS ---
Examination: CR Xr Lumbar Spine 4v Min Technique: AP, lateral, lateral spot, bilateral oblique view x-rays lumbar spine COMPARISON: CT abdomen and pelvis 05/12/2024 HISTORY: Acute exacerbation of chronic low back pain, fall 4 days ago FINDINGS: There are 5 nonrib-bearing lumbar segments. There is mild wedging of T12 There is moderate disc space narrowing involving L3-4, L4-5, and L5-S1. There is mild narrowing at other disc spaces in the lumbar spine. There is facet sclerosis and osteophytes in the lower lumbar spine. No other abnormality is noted. XR/XR lumbar spine 4V min IMPRESSION: There is mild wedging of T12, compression fracture is not ruled out. Multilevel degenerative disc disease and facet osteoarthritis is most advanced at L4-5 and L5-S1. Electronically signed by: Manny Olivia MD 07/12/2025 03:36 PM [facility]
--- NOTE | ~2025-07-12 | XR_ITS ---
EXAMINATION: XR KNEE, RIGHT CLINICAL INFORMATION: PAIN COMPARISON: March 14, 2023 TECHNIQUE: AP, lateral, bilateral oblique views of the right knee. FINDINGS: There is no joint effusion. There is moderate narrowing of the medial joint space. There are tricompartmental marginal osteophytes. There is mild subchondral sclerosis in the medial compartment. XR/XR knee RT 4V IMPRESSION: Mild osteoarthritis, increased from the prior. Electronically signed by: Manny Olivia MD 07/12/2025 03:38 PM [facility]
--- NOTE | ~2025-07-12 | XR_ITS ---
EXAMINATION: XR KNEE, LEFT CLINICAL INFORMATION: Acute on chronic bilateral knee pain COMPARISON: None available. TECHNIQUE: Four views of the left knee. FINDINGS: There is no joint effusion. There is narrowing of the medial joint space. There are marginal osteophytes, most pronounced along the medial joint line. XR/XR knee LT 4V IMPRESSION: Moderate osteoarthritis. Electronically signed by: Manny Olivia MD 07/12/2025 03:31 PM [facility]
--- OUTSIDE RECORDS SUMMARY | 2025-07-12 14:00 | XMS_ITS | Encounter Summary ---
Author Organization [employer] Address 75 [facility] [address] [address] Care Team Providers Care Power Plant Operator Apprentice Name Role Phone [place] [facility] Primary Care Provider [phone] Reason for Visit * Reason Comments Follow-up Encounter Details Date Type Department Care Team ([facility] st Contact Info) Description 07/12/2025 2:00 PM EST Office Visit [facility] MEDICINE [address] [place] [address] [facility] [address] [place] [address] Chronic bilateral low back pain without sciatica (Primary Dx); Bilateral chronic knee pain; Encounter for immunization Social History Tobacco Use Types Packs/Day Years [...] Sign Reading Time Taken Comments Blood Pressure 110/80 07/12/2025 1:45 PM EST Pulse 84 07/12/2025 1:45 PM EST Temperature 36.5 C (97.7 F) 07/12/2025 1:45 PM EST Respiratory Rate 20 07/12/2025 1:45 PM EST Oxygen Saturation - - Inhaled Oxygen Concentration - - Weight 86.6 kg (191 lb) 07/12/2025 1:45 PM EST Height 157.5 cm (5' 2 ) 07/12/2025 1:45 PM EST Body Mass Index 34.93 07/12/2025 1:45 PM EST documented in this encounter Plan of Treatment Upcoming Encounters Date Type Department Care Team (Late st Contact Info) Description 09/29/2025 11:30 AM EST Clinical Support [address] [address] Frida Knapp RN documented as of this encounter Procedures Procedure Name Priority Date/Time Associated Diagnosis Comments XR KNEE 4+ VIEWS LEFT Routine 07/12/2025 3:19 PM EST XR LUMBAR SPINE COMPLETE 4+ VIEWS Routine 07/12/2025 3:17 PM EST Chronic bilateral low back pain without sciatica documented in this encounter Results * XR Knee 4+ Views Left (07/12/2025 3:19 PM EST) Anatomical Region Laterality Modality Lower Extremities, Knee Left [facility] 07/12/2025 3:19 PM EST Narrative 07/12/2025 3:34 PM EST [address] [address] XRay Report Signed Patient: Hilda Mcmahan MR#: [id number] : 1965 Acct:[id number] Age/Sex: 60 / F ADM Date: 07/12/25 [facility]: Ginger Perez MECHANIC CHIEF Ordering Physician: Ginger Perez Date of Service: 07/12/25 Procedure(s): XR knee LT 4V Accession Number(s): [id number] cc: Ginger Perez [facility] Reason for Exam: Acute on chronic bilateral knee pain EXAMINATION: XR KNEE, LEFT CLINICAL INFORMATION: Acute on chronic bilateral knee pain COMPARISON: None available. TECHNIQUE: Four views of the left knee. FINDINGS: There is no joint effusion. There is narrowing of the medial joint space. There are marginal osteophytes, most pronounced along the medial joint line. XR/XR knee LT 4V IMPRESSION: Moderate osteoarthritis. Electronically signed by: Manny Olivia MD 07/12/2025 03:31 PM EST Dictated By: Manny Olivia MD Signed By: <Electronically signed by Manny Olivia MD in OV> 07/12/25 1531 DD/ 1519 TD/TT: 07/12/25 1523 Golf [address] Laborer: Procedure Note Donotuseinterpreter, Image - 07/12/[address] [address] XRay Report Signed Patient: Hilda McmahanMR#: [id number] : 1965Acct:[id number] Age/Sex: 60 / FADM Date: 07/12/25 Loc: [facility] Attending Dr: Ginger DUARTE Ordering Physician: Ginger Perez Date of Service: 07/12/25 Procedure(s): XR knee LT 4V Accession Number(s): [id number] [facility] Reason for Exam: Acute on chronic bilateral knee pain EXAMINATION: XR KNEE, LEFT CLINICAL INFORMATION: Acute on chronic bilateral knee pain COMPARISON: None available. TECHNIQUE: Four views of the left knee. FINDINGS: There is no joint effusion. There is narrowing of the medial joint space. There are marginal osteophytes, most pronounced along the medial joint line. XR/XR knee LT 4V IMPRESSION: Moderate osteoarthritis. Electronically signed by: Manny Olivia MD 07/12/2025 03:31 PM EST Dictated By: Manny Olivia MD Signed By: <Electronically signed by Manny Olivia MD in OV> 07/12/25 1531 DD/ 1519 TD/TT: 07/12/25 1523 Golf Course Laborer: [facility] IMG XR PROCEDURES Edited Resu lt - Final * XR Lumbar Spine Complete 4+ Views (07/12/2025 3:17 PM EST) Anatomical Region Laterality Modality Spine, L-spine Radiographic Wilma ging 07/12/2025 3:17 PM EST Narrative 07/12/2025 3:40 PM EST [address] [address] XRay Report Signed Patient: Hilda Mcmahan MR#: [id number] : 1965 Acct:[id number] Age/Sex: 60 / F ADM Date: 07/12/25 Loc: [facility] Attending Dr: Ginger Perez MECHANIC CHIEF Ordering Physician: Ginger Perez Date of Service: 07/12/25 Procedure(s): XR lumbar spine 4V min Accession Number(s): [id number] cc: Ginger Perez Reason for Exam: Acute on chronic LBP Examination: CR Xr Lumbar Spine 4v Min Technique: AP, lateral, lateral spot, bilateral oblique view x-rays lumbar spine COMPARISON: CT abdomen and pelvis 05/12/2024 HISTORY: Acute exacerbation of chronic low back pain, fall 4 days ago FINDINGS: There are 5 nonrib-bearing lumbar segments. There is mild wedging of T12 There is moderate disc space narrowing involving L3-4, L4-5, and L5-S1. There is mild narrowing at other disc spaces in the lumbar spine. There is facet sclerosis and osteophytes in the lower lumbar spine. No other abnormality is noted. XR/XR lumbar spine 4V min IMPRESSION: There is mild wedging of T12, compression fracture is not ruled out. Multilevel degenerative disc disease and facet osteoarthritis is most advanced at L4-5 and L5-S1. Electronically signed by: Manny Olivia MD 07/12/2025 03:36 PM [facility] Dictated By: Manny Olivia MD Signed By: <Electronically signed by Manny Olivia MD in OV> 07/12/25 1536 DD/ 1517 TD/TT: 07/12/25 1523 [address] Laborer: Procedure Note Donotuseinterpreter, Image - 07/12/[address] [address] XRay Report Signed Patient: Hilda McmahanMR#: [id number] : 1965Acct:[id number] Age/Sex: 60 / FADM Date: 07/12/25 Loc: [facility] Attending Dr: Ginger DUARTE Ordering Physician: Ginger Perez Date of Service: 07/12/25 Procedure(s): XR lumbar spine 4V min Accession Number(s): [id number] cc: [place],Ginger MECHANIC CHIEF Reason for Exam: Acute on chronic LBP Examination: CR Xr Lumbar Spine 4v Min Technique: AP, lateral, lateral spot, bilateral oblique view x-rays lumbar spine COMPARISON: CT abdomen and pelvis 05/12/2024 HISTORY: Acute exacerbation of chronic low back pain, fall 4 days ago FINDINGS: There are 5 nonrib-bearing lumbar segments. There is mild wedging of T12 There is moderate disc space narrowing involving L3-4, L4-5, and L5-S1. There is mild narrowing at other disc spaces in the lumbar spine. There is facet sclerosis and osteophytes in the lower lumbar spine. No other abnormality is noted. XR/XR lumbar spine 4V min IMPRESSION: There is mild wedging of T12, compression fracture is not ruled out. Multilevel degenerative disc disease and facet osteoarthritis is most advanced at L4-5 and L5-S1. Electronically signed by: Manny Olivia MD 07/12/2025 03:36 PM [facility] Dictated By: Manny Olivia MD Signed By: <Electronically signed by Manny Olivia MD in OV> 07/12/25 1536 DD/ 1517 TD/TT: 07/12/25 1523 Golf [address] Laborer: [facility] IM XR PROCEDURES Edited Resu lt - Final documented in this encounter Visit Diagnoses Diagnosis Chronic bilateral low back pain without sciatica- Primary Bilateral chronic knee pain Encounter for immunization documented in this encounter Additional Health Concerns Assessment Noted Time PHQ-9 Depression Total Score: 13 024 11:27 AM EDT documented as of this encounter Care Teams Power Plant Operator Apprentice Relationship Specialty Start Date End Date WoodlandGinger FNP [address] [place] [address] PCP - General Family Medicine 08/13/22 [facility] [place] [facility] 11/[place]22 documented as of this encounter
--- OUTSIDE RECORDS SUMMARY | 2025-07-12 16:58 | XMS_ITS | Encounter Summary ---
Author Organization [employer] Address 75 [facility] [address] [place] [address] Care Team Providers Care Class C Driver Name Role Phone [facility] Primary Care Provider [phone] Reason for Visit * Reason Comments Med Refill Encounter Details Date Type Department Care Team ([facility] st Contact Info) Description 05/11/2025 Refill [facility] MEDICINE [address] [place], [place] [phone] [facility] 230 [place] [address] Mixed anxiety and depressive disorder Social History [...] Description 09/29/2025 11:30 AM EST Clinical Support [facility] MEDICINE [address] [place] [address] Frida Knapp RN documented as of this encounter Visit Diagnoses Diagnosis Mixed anxiety and depressive disorder Dysthymic disorder documented in this encounter Additional Health Concerns Assessment Noted Time PHQ-9 Depression Total Score: 13 024 11:27 AM EDT documented as of this encounter Care Teams Class C Driver Relationship Specialty Start Date End Date Ginger Perez FNP 230 [place] [address] PCP - General Family Medicine 08/13/22 [facility] [place] [facility] 11/01/22 documented as of this encounter
--- OUTSIDE RECORDS SUMMARY | 2025-07-12 16:58 | XMS_ITS | Encounter Summary ---
Author Organization [employer] Address 75 [facility] [address] [place] [address] Care Team Providers Care Cigar Head Perforator Name Role Phone [facility] Primary Care Provider [phone] Reason for Visit * Reason Comments Med Refill Encounter Details Date Type Department Care Team ([facility] st Contact Info) Description 06/25/2023 [facility] 230 [place], [place] [phone] [facility] 230 [place] [address] Muscle spasm Social History Tobacco Use Types [...] 11:30 AM EST Clinical Support [facility] [address] [place] [address] Frida Knapp RN documented as of this encounter Visit Diagnoses Diagnosis Muscle spasm Spasm of muscle documented in this encounter Additional Health Concerns Assessment Noted Time PHQ-9 Depression Total Score: 16 023 9:09 AM EDT documented as of this encounter Care Teams Cigar Head Perforator Relationship Specialty Start Date End Date Ginger Perez FNP [address] [place] [address] PCP - General Family Medicine 08/13/22 [facility] Care 11/01/22 documented as of this encounter
--- OUTSIDE RECORDS SUMMARY | 2025-07-12 16:58 | XMS_ITS | Encounter Summary ---
Author Organization [employer] Address 75 [facility] 7[address] [place] [address] Care Team Providers Care Pipefitter Helper Name Role Phone Ginger Perez [facility] Primary Care Provider [phone] Encounter Details Date Type Department Care Team ([facility] st Contact Info) Description 02/21/[address] [facility] MEDICINE 230 [place], [place] [phone] [place] [facility] 230 [place], [place] [phone] Social History Tobacco Use Types Packs/Day Years [...] - 02/25/2023 9:57 AM EDT T/C to [phone] for below message, No answer. LVM to call back on [phone]. As per last message , PCP referred pt. For Physical therapy evaluation. * Telephone Encounter - Mirta Vladimir - 02/21/2023 3:11 PM EDT Tc from [facility] requesting a script for Albuterol for nebulize machine. Greenskeeper Supervisor check on med list but nothing. Also [facility] requesting a referral for Occupational Therapy and Physical Therapy in home. To contact [facility] at [phone] Perez documented in this encounter Plan of Treatment Upcoming Encounters Date Type Department Care Team (Late st Contact Info) Description 09/29/2025 11:30 AM EST Clinical Support [facility] MEDICINE [address] [place] [address] Frida Knapp, RN documented as of this encounter Visit Diagnoses Not on filedocumented in this encounter Additional Health Concerns Assessment Noted Time PHQ-9 Depression Total Score: 9 01/25/20 23 1:11 PM EDT documented as of this encounter Care Teams Pipefitter Helper Relationship Specialty Start Date End Date Ginger Perez FNP [address] [place] [address] PCP - General Family Medicine 08/13/22 [facility] 11/01/22 documented as of this encounter
--- OUTSIDE RECORDS SUMMARY | 2025-07-12 16:58 | XMS_ITS | Encounter Summary ---
Author Organization [employer] Address 75 [facility] [address] [place] [address] Care Team Providers Care Can Cutter Name Role Phone [place] [facility] Primary Care Provider [phone] Reason for Visit * Reason Onset Date Comments Durable Medical Equipment 11/12/2024 Encounter Details Date Type Department Care Team ([facility] st Contact Info) Description 11/12/2024 Telephone [facility] MEDICINE [address] [place] [address] [facility] [address] [place] [address] Durable Medical Equipment Social History Tobacco Use [...] other 2 boxes that was never received. [phone] * Telephone Encounter - Jazzmine Dukes - 11/12/2024 2:57 PM EDT Tc from pt stating received two boxes of vanilla ensure and normally she received four boxes. documented in this encounter Plan of Treatment Upcoming Encounters Date Type Department Care Team (Late st Contact Info) Description 09/29/2025 11:30 AM EST Clinical Support [facility] MEDICINE [address] [place] [address] Frida Knapp, RN documented as of this encounter Visit Diagnoses Not on filedocumented in this encounter Additional Health Concerns Assessment Noted Time PHQ-9 Depression Total Score: 13 024 11:27 AM EDT documented as of this encounter Care Teams Can Cutter Relationship Specialty Start Date End Date Ginger PerezGERALD [address] [place] [address] PCP - General Family Medicine 08/13/22 [facility] [place] Care 11/01/22 documented as of this encounter
--- OUTSIDE RECORDS SUMMARY | 2025-07-12 16:58 | XMS_ITS | Encounter Summary ---
Author Organization [employer] Address 75 [facility] [address] [place] [address] Care Team Providers Care Wash Plant Operator Name Role Phone [facility] Primary Care Provider [phone] Reason for Visit * Reason Comments Med Refill Encounter Details Date Type Department Care Team ([facility] st Contact Info) Description 05/22/2024 Refill [facility] MEDICINE 230 [place], [place] [phone] [facility] [address] [place] [address] Low back pain at multiple sites Social [...] Description 09/29/2025 11:30 AM EST Clinical Support [facility] MEDICINE [address] [place] [address] Frida Knapp RN documented as of this encounter Visit Diagnoses Diagnosis Low back pain at multiple sites documented in this encounter Additional Health Concerns Assessment Noted Time PHQ-9 Depression Total Score: 13 024 11:27 AM EDT documented as of this encounter Care Teams Wash Plant Operator Relationship Specialty Start Date End Date Ginger Perez FNP [address] [place] [address] PCP - General Family Medicine 08/13/22 [facility] Home Care 11/01/22 documented as of this encounter
--- OUTSIDE RECORDS SUMMARY | 2025-07-12 16:58 | XMS_ITS | Encounter Summary ---
Author Organization [employer] Address 75 [facility] [address] [place] [address] Care Team Providers Care Clinical Psychology Professor Name Role Phone [facility] Primary Care Provider [phone] Reason for Visit * Reason Onset Date Comments Durable Medical Equipment 12/18/2022 Encounter Details Date Type Department Care Team ([facility] st Contact Info) Description 12/18/2022 Telephone [facility] MEDICINE [address] [place] [address] [facility] [address] [place] [address] Durable Medical Equipment Social History Tobacco Use [...] note. Thank you. * Telephone Encounter - Bernda Prachi - 12/18/2022 2:22 PM EDT [facility] requesting a new nebulizer machine . States pt informed old one stopped working . documented in this encounter Plan of Treatment Upcoming Encounters Date Type Department Care Team (Late st Contact Info) Description 09/29/2025 11:30 AM EST Clinical Support [facility] MEDICINE [address] [place] [address] Frida Knapp, RN documented as of this encounter Visit Diagnoses Not on filedocumented in this encounter Additional Health Concerns Assessment Noted Time PHQ-9 Depression Total Score: 0 12/12/19 23 3:58 PM EDT documented as of this encounter Care Teams Clinical Psychology Professor Relationship Specialty Start Date End Date Ginger Perez FNP [address] [place] [address] PCP - General Family Medicine 08/13/22 [facility] [place] 11/[place]/22 documented as of this encounter
--- OUTSIDE RECORDS SUMMARY | 2025-07-12 16:58 | XMS_ITS | Encounter Summary ---
Author Organization [employer] Address 75 [facility] [address] [place] [address] Care Team Providers Care Pharmacy Account Director Name Role Phone [facility] Primary Care Provider Reason for Visit * Reason Comments Med Refill Encounter Details Date Type Department Care Team ([facility] st Contact Info) Description 06/14/2025 Refill [facility] MED & PEDS [address] [place], [place] [phone] [facility] [address] [place] [address] Mixed anxiety and depressive disorder Social History [...] Description 09/29/2025 11:30 AM EST Clinical Support [facility] MEDICINE [address] [place] [address] Frida Knapp, OZZY documented as of this encounter Visit Diagnoses Diagnosis Mixed anxiety and depressive disorder Dysthymic disorder documented in this encounter Additional Health Concerns Assessment Noted Time PHQ-9 Depression Total Score: 13 024 11:27 AM EDT documented as of this encounter Care Teams Pharmacy Account Director Relationship Specialty Start Date End Date Ginger Perez FNP [address] [place] [address] PCP - General Family Medicine 08/13/22 [facility] [place] [facility] 11/01/22 documented as of this encounter
--- OUTSIDE RECORDS SUMMARY | 2025-07-12 16:58 | XMS_ITS | Encounter Summary ---
Author Organization [employer] Address 75 [facility] [address] [place] [address] Care Team Providers Care Associate Trainer Name Role Phone [place] [facility] Primary Care Provider [phone] Encounter Details Date Type Department Care Team (Late Contact Info) Description 08/22/2022 Refill [facility] MEDICINE 230 [place], [place] [phone] [place] [facility] [address] [place] [address] Muscle spasm Social History Tobacco Use Types [...] 11:30 AM EST Clinical Support [facility] MEDICINE [address] [place] [address] Frdia Knapp, OZZY documented as of this encounter Visit Diagnoses Diagnosis Muscle spasm Spasm of muscle documented in this encounter Additional Health Concerns Assessment Noted Time PHQ-9 Depression Total Score: 9 08/21/20 22 10:14 AM EST documented as of this encounter Care Teams Associate Trainer Relationship Specialty Start Date End Date Ginger Perez FNP [address] [place] [address] PCP - General Family Medicine 08/13/22 [facility] Home Care 11/01/22 documented as of this encounter
--- OUTSIDE RECORDS SUMMARY | 2025-07-12 16:58 | XMS_ITS | Clinical Summary ---
Author Organization [facility] Address [address] [place] [address] Phone Care Team Providers Care Squirrel Man Name Role Phone Guille Valentine NP Primary Care Provider [phone] Social History Tobacco Use Types Packs/Day Years [...] [facility] Care Teams Squirrel Man Relationship Specialty Start Date End Date Guille Valentine NP [address] [place] [phone] PCP - General Family Medicine 07/03/19 Additional Source Comments The information contained in this document represents components of the legal health record. It is not the complete legal health record.[facility]
--- OUTSIDE RECORDS SUMMARY | 2025-07-12 16:58 | XMS_ITS | Encounter Summary ---
Author Organization [employer] Address [address] [facility] 7[address] [place] [address] Care Team Providers Care Chemical Processing Equipment Repairer Name Role Phone [facility] Primary Care Provider [phone] Reason for Visit * Reason Onset Date Comments Nurse Triage 10/07/2023 Encounter Details Date Type Department Care Team ([facility] st Contact Info) Description 10/07/2023 Telephone [facility] [address] [place] [address] [facility] 230 [place] [address] Nurse Triage Social History Tobacco Use Types [...] 10/07/2023 3:17 PM EST TC placed to [facility] CS, Ct scan rescheduled [...] still having kidney pain . Patient speaks Malaysian. Advised triage nurse will call patient back. documented in this encounter Plan of Treatment Upcoming Encounters Date Type Department Care Team (Late st Contact Info) Description 09/29/2025 11:30 AM EST Clinical Support [facility] [address] [place] [address] Frida Knapp RN documented as of this encounter Visit Diagnoses Not on filedocumented in this encounter Additional Health Concerns Assessment Noted Time PHQ-9 Depression Total Score: 0 10/03/19 24 10:12 AM EST documented as of this encounter Care Teams Chemical Processing Equipment Repairer Relationship Specialty Start Date End Date Ginger Perez FNP 230 [place] [address] PCP - General Family Medicine 08/13/22 [facility] [place] [facility] 11/01/22 documented as of this encounter
--- OUTSIDE RECORDS SUMMARY | 2025-07-12 16:58 | XMS_ITS | Encounter Summary ---
Author Organization [employer] Address 75 [facility] [address] [address] Care Team Providers Care Security Assistant Name Role Phone [facility] Primary Care Provider [phone] Reason for Visit * Reason Comments Med Refill Encounter Details Date Type Department Care Team ([facility] st Contact Info) Description 11/22/2023 Refill [facility] 230 [place], [place] [phone] [facility] 230 [place] [address] Type 2 diabetes mellitus with hyperglycemia, with long-term current use of insulin ([facility]) Social History Tobacco Use Types Packs/Day [...] Description 09/29/2025 11:30 AM EST Clinical Support [facility] MEDICINE [address] [place] [address] Frida Knapp RN documented as of this encounter Visit Diagnoses Diagnosis Type 2 diabetes mellitus with hyperglycemia, with long-term current use of insulin (HCC) documented in this encounter Additional Health Concerns Assessment Noted Time PHQ-9 Depression Total Score: 0 11/13/19 24 3:08 PM EDT documented as of this encounter Care Teams Security Assistant Relationship Specialty Start Date End Date Ginger Perez FNP 230 [place] [address] PCP - General Family Medicine 08/13/22 [facility] Home Care 11/01/22 documented as of this encounter
--- OUTSIDE RECORDS SUMMARY | 2025-07-12 16:58 | XMS_ITS | Encounter Summary ---
Author Organization [employer] Address [address] [facility] [address] [address] Care Team Providers Care Manager Cancer Name Role Phone Bryce [facility] Primary Care Provider [phone] Reason for Visit * Reason Onset Date Comments Nurse Triage 08/18/2024 Encounter Details Date Type Department Care Team ([facility] st Contact Info) Description 08/18/2024 Telephone [facility] MED[facility] 230 [place] [address] [facility] 230 [place] [address] Nurse Triage Social History Tobacco Use Types [...] AM EST Tc from pt returning call [phone] * Telephone Encounter - Francie Au RN - 08/18/2024 11:47 AM EST Triage call Pt reports abnormal vaginal bleeding which has been occurring for last several months. Pt reports spotting started yesterday and usually this is gone in a day. This time it is the second day of this spotting and drainage is black in color. Pt denies any other symptoms. Pt reports AUDIO PRODUCTION ENGINEER advised to call to see provider. ASK [...] Description 09/29/2025 11:30 AM EST Clinical Support [facility] [address] [place] [address] Frida Knapp, RN documented as of this encounter Visit Diagnoses Not on filedocumented in this encounter Additional Health Concerns Assessment Noted Time PHQ-9 Depression Total Score: 13 07/ 024 11:27 AM EDT documented as of this encounter Care Teams Manager Cancer Relationship Specialty Start Date End Date Ginger Perez FNP [address] [place] [address] PCP - General Family Medicine 08/13/22 [facility] Home Care 11/01/22 documented as of this encounter
--- OUTSIDE RECORDS SUMMARY | 2025-07-12 16:58 | XMS_ITS | Encounter Summary ---
Demographics Address [address] [facility] [address] [place] [address] Mobile Phone Work Phone Home Phone Email Address Preferred Language en Marital Status Single Mandaeism Affiliation Unknown Race Other Race Ethnic Group Unknown Author Organization [employer] Address [address] [facility] 7t [place] [address] Care Team Providers Care Grievance And Appeals Coordinator Name Role Phone Ginger Perez [facility] Primary Care Provider [phone] Encounter Details Date Type Department Care Team (Latest Contact Info) Description 07/12/2025 Travel Social History Tobacco Use Types Packs/Day [...] Description 09/29/2025 11:30 AM EST Clinical Support [facility] MEDICINE 230 [place] [address] Frida Knapp, OZZY documented as of this encounter Visit Diagnoses Not on filedocumented in this encounter Additional Health Concerns Assessment Noted Time PHQ-9 Depression Total Score: 13 024 11:27 AM EDT documented as of this encounter Care Teams Grievance And Appeals Coordinator Relationship Specialty Start Date End Date Ginger Perez FNP 230 [place] [address] PCP - General Family Medicine 08/13/22 [facility] Home Care 11/01/22 documented as of this encounter
--- OUTSIDE RECORDS SUMMARY | 2025-07-12 16:58 | XMS_ITS | Encounter Summary ---
Author Organization [facility] Address [address] [place] [address] Care Team Providers Care Digital Business Analyst Name Role Phone Ginger Perez Primary Care Provider [phone] Reason for Visit * Reason Onset Date Comments Advice Only 07/01/2025 Encounter Details Date Type Department Care Team (Late Contact Info) Description 07/01/2025 Telephone Bariatric Surgery - [address] [phone] Omer Beaver MD 230 [place] [phone] Social History Tobacco Use Types Packs/Day Years [...] on file documented as of this encounter Progress Notes * Lexie Kaplan - 07/01/2025 1:55 PM EDT Patient has an appointment on 07/06 and is wondering if she needs to have an xray or labs prior to the appt. Please advise. documented in this encounter Plan of Treatment Upcoming Encounters Date Type Department Care Team (Late Contact Info) Description 11/16/2025 2:00 PM EDT Office Visit Bariatric Surgery [facility] [address] [phone] Omer Beaver MD [address] [place] [address] documented as of this encounter Visit Diagnoses Not on filedocumented in this encounter Care Teams Digital Business Analyst Relationship Specialty Start Date End Date Ana Ginger [address] [place] [phone] PCP - General 12/18/23 documented as of this encounter
--- OUTSIDE RECORDS SUMMARY | 2025-07-12 16:58 | XMS_ITS | Encounter Summary ---
Author Organization [employer] Address [address] [facility] [address] [place] [address] Care Team Providers Care Manager Foreign Name Role Phone [facility] Primary Care Provider [phone] Reason for Visit * Reason Onset Date Comments Referral 07/19/2023 Encounter Details Date Type Department Care Team ([facility] st Contact Info) Description 07/19/2023 Telephone [facility] MEDICINE 230 [place] [address] [facility] 230 [place] [address] Referral Social History Tobacco Use Types Packs/Day [...] no availability. Any questions, contact sarah at [phone] documented in this encounter Plan of Treatment Upcoming Encounters Date Type Department Care Team (Late st Contact Info) Description 09/29/2025 11:30 AM EST Clinical Support [facility] MEDICINE [address] [place] [address] Frida Knapp, RN documented as of this encounter Visit Diagnoses Not on filedocumented in this encounter Additional Health Concerns Assessment Noted Time PHQ-9 Depression Total Score: 16 023 9:09 AM EDT documented as of this encounter Care Teams Manager Foreign Relationship Specialty Start Date End Date Ginger Perez FNP [address] [place] [address] PCP - General Family Medicine 08/13/22 [facility] Care 11/01/22 documented as of this encounter
--- OUTSIDE RECORDS SUMMARY | 2025-07-12 16:58 | XMS_ITS | Encounter Summary ---
Author Organization [employer] Address 75 [facility] 7t [place] [address] Care Team Providers Care Ship/Rec/Doc Control Name Role Phone [facility] Primary Care Provider [phone] Reason for Visit * Reason Comments Med Refill Encounter Details Date Type Department Care Team ([facility] st Contact Info) Description 05/11/2024 Refill [facility] 230 [place] [address] Roma Man MD [address] [place] [address] Onychomycosis Social History Tobacco Use Types Packs/Day [...] 11:30 AM EST Clinical Support [facility] MEDICINE [address] [place] [address] Frida Knapp RN documented as of this encounter Visit Diagnoses Diagnosis Onychomycosis Dermatophytosis of nail documented in this encounter Additional Health Concerns Assessment Noted Time PHQ-9 Depression Total Score: 13 024 11:27 AM EDT documented as of this encounter Care Teams Ship/Rec/Doc Control Relationship Specialty Start Date End Date Ginger Perez FNP 230 [place] [address] PCP - General Family Medicine 08/13/22 [facility] Home Care 11/01/22 documented as of this encounter
--- OUTSIDE RECORDS SUMMARY | 2025-07-12 16:58 | XMS_ITS | Encounter Summary ---
Author Organization [employer] Address [address] [facility] [address] [place] [address] Care Team Providers Care Assurance Specialist Name Role Phone [facility] Primary Care Provider [phone] Reason for Visit * Reason Comments Med Refill Encounter Details Date Type Department Care Team (Late st Contact Info) Description 02/04/2025 Refill [facility] C[facility] 230 [place], [place] [phone] [facility] 230 [place] [address] Type 2 diabetes mellitus with chronic kidney [...] Description 09/29/2025 11:30 AM EST Clinical Support [facility] MEDICINE 230 [place] [address] Frida Knapp, RN documented as of this encounter Visit Diagnoses Diagnosis Type 2 diabetes mellitus with chronic kidney disease, with long-term current use of insulin, unspecified CKD stage (HCC) documented in this encounter Additional Health Concerns Assessment Noted Time PHQ-9 Depression Total Score: 13 024 11:27 AM EDT documented as of this encounter Care Teams Assurance Specialist Relationship Specialty Start Date End Date Ginger Perez FNP 230 [place] [address] PCP - General Family Medicine 08/13/22 [facility] Home Care 11/01/22 documented as of this encounter
--- OUTSIDE RECORDS SUMMARY | 2025-07-12 16:58 | XMS_ITS | Encounter Summary ---
Author Organization [employer] Address 75 [facility] 7[address] [place] [address] Care Team Providers Care Oracle Iam Consultant Name Role Phone [facility] Primary Care Provider [phone] Encounter Details Date Type Department Care Team ([facility] st Contact Info) Description 07/12/2025 Orders Only [facility] MEDICINE 230 [place], [place] [phone] [facility] 230 [place], [place] [phone] Social History Tobacco Use Types Packs/Day Years [...] Description 09/29/2025 11:30 AM EST Clinical Support [facility] MEDICINE [address] [place] [address] Frida Knapp RN documented as of this encounter Procedures Procedure Name Priority Date/Time Associated Diagnosis Comments XR KNEE 4+ VIEWS RIGHT Routine 07/12/2025 3:22 PM EST documented in this encounter Results * XR Knee 4+ Views Right (07/12/2025 3:22 PM EST) Anatomical Region Laterality Modality Lower Extremities, Knee Right [facility] 07/12/2025 3:22 PM EST Narrative 07/12/2025 3:41 PM EST [address] [address] XRay Report Signed Patient: Hilda Mcmahan MR#: [id number] : 1965 Acct:[id number] Age/Sex: 60 / F ADM Date: 07/12/25 [facility] Attending Dr: Ginger Perez CEMENT OR CONCRETE FINISHING SUPERVISOR Ordering Physician: Ginger Perez Date of Service: 07/12/25 Procedure(s): XR knee RT 4V Accession Number(s): [id number] cc: Ginger Perez Reason for Exam: PAIN EXAMINATION: XR KNEE, RIGHT CLINICAL INFORMATION: PAIN COMPARISON: March 14, 2023 TECHNIQUE: AP, lateral, bilateral oblique views of the right knee. FINDINGS: There is no joint effusion. There is moderate narrowing of the medial joint space. There are tricompartmental marginal osteophytes. There is mild subchondral sclerosis in the medial compartment. XR/XR knee RT 4V IMPRESSION: Mild osteoarthritis, increased from the prior. Electronically signed by: Manny Olivia MD 07/12/2025 03:38 PM EST Dictated By: Manny Olivia MD Signed By: <Electronically signed by Manny Olivia MD in OV> 07/12/25 1538 DD/ 1522 TD/TT: 07/12/25 1523 District Or District Office Director: Procedure Note Donotuseinterpreter, Image - 07/12/2025 [place] [address] XRay Report Signed Patient: Hilda McmahanMR#: [id number] : 1965Acct:[id number] Age/Sex: 60 / FADM Date: 07/12/25 Loc: [email or web address] Attending Dr: Ginger Perez CEMENT OR CONCRETE FINISHING SUPERVISOR Ordering Physician: Ginger Perez Date of Service: 07/12/25 Procedure(s): XR knee RT 4V Accession Number(s): [id number] cc: Ginger Perez Reason for Exam: PAIN EXAMINATION: XR KNEE, RIGHT CLINICAL INFORMATION: PAIN COMPARISON: March 14, 2023 TECHNIQUE: AP, lateral, bilateral oblique views of the right knee. FINDINGS: There is no joint effusion. There is moderate narrowing of the medial joint space. There are tricompartmental marginal osteophytes. There is mild subchondral sclerosis in the medial compartment. XR/XR knee RT 4V IMPRESSION: Mild osteoarthritis, increased from the prior. Electronically signed by: Manny Olivia MD 07/12/2025 03:38 PM EST RP Dictated By: Manny Olivia MD Signed By: <Electronically signed by Manny Olivia MD in OV> 07/12/25 1538 DD/ 1522 TD/TT: 07/12/25 1523 District Or District Office Director: [facility] IM XR PROCEDURES Edited Resu lt - Final documented in this encounter Visit Diagnoses Not on filedocumented in this encounter Additional Health Concerns Assessment Noted Time PHQ-9 Depression Total Score: 13 024 11:27 AM EDT documented as of this encounter Care Teams Oracle Iam Consultant Relationship Specialty Start Date End Date AnaGinger canales FNP [address] [place] [address] PCP - General Family Medicine 08/13/22 [facility] [place] [facility] 11/01/22 documented as of this encounter
--- OUTSIDE RECORDS SUMMARY | 2025-07-12 16:58 | XMS_ITS | Encounter Summary ---
Author Organization [employer] Address [address] [facility] [address] [place] [address] Care Team Providers Care Four H Agent Name Role Phone [facility] Primary Care Provider [phone] Reason for Visit * Reason Onset Date Comments Call Back Request 10/09/2024 Encounter Details Date Type Department Care Team ([facility] st Contact Info) Description 10/09/2024 Telephone [facility] MEDICINE 230 [place] [address] [facility] 230 [place] [address] Call Back Request Social History Tobacco Use [...] the past 12 months, has t he Play[employer], gas, oil or water Runner threatened to shut off services in your [...] refuses to perform it. Any questions contact: [phone] documented in this encounter Plan of Treatment Upcoming Encounters Date Type Department Care Team (Late st Contact Info) Description 09/29/2025 11:30 AM EST Clinical Support [facility] MEDICINE 230 [place] [address] Frida Knapp RN documented as of this encounter Visit Diagnoses Not on filedocumented in this encounter Additional Health Concerns Assessment Noted Time PHQ-9 Depression Total Score: 13 024 11:27 AM EDT documented as of this encounter Care Teams Four H Agent Relationship Specialty Start Date End Date Ginger Perez FNP 230 [place] [address] PCP - General Family Medicine 08/13/22 [facility] Home Care 11/01/22 documented as of this encounter
--- OUTSIDE RECORDS SUMMARY | 2025-07-12 16:58 | XMS_ITS | Encounter Summary ---
Author Organization [employer] Address [address] [facility] [address] [address] Care Team Providers Care Shuttle Preparation Supervisor Name Role Phone [facility] Primary Care Provider [phone] Reason for Visit * Reason Onset Date Comments Medication Question 11/12/2024 Med Refill 11/12/2024 Encounter Details Date Type Department Care Team ([facility] st Contact Info) Description 11/12/2024 Telephone [facility] MEDICINE 230 [place] [address] [facility] 230 [place] [address] Medication Question; Med Refill Social History Tobacco [...] from pt regarding Lidocaid Patch and Clonazepam. Editor Trade Journal advised pt med refill request was sent yesterday. documented in this encounter Plan of Treatment Upcoming Encounters Date Type Department Care Team (Late st Contact Info) Description 09/29/2025 11:30 AM EST Clinical Support [facility] MEDICINE 230 [place] [address] Frida Knapp, OZZY documented as of this encounter Visit Diagnoses Not on filedocumented in this encounter Additional Health Concerns Assessment Noted Time PHQ-9 Depression Total Score: 13 024 11:27 AM EDT documented as of this encounter Care Teams Shuttle Preparation Supervisor Relationship Specialty Start Date End Date Ginger Perez FNP 230 [place] [address] PCP - General Family Medicine 08/13/22 [facility] Home Care 11/01/22 documented as of this encounter
--- OUTSIDE RECORDS SUMMARY | 2025-07-12 16:58 | XMS_ITS | Encounter Summary ---
Author Organization [employer] Address [address] [facility] [address] [address] Care Team Providers Care Etch Operator Semiconductor Wafers Name Role Phone [facility] Primary Care Provider [phone] Reason for Visit * Reason Onset Date Comments Durable Medical Equipment 12/18/2022 Encounter Details Date Type Department Care Team ([facility] st Contact Info) Description 12/18/2022 Telephone [facility] MEDICINE 230 [place] [address] [facility] 230 [place] [address] Durable Medical Equipment Social History Tobacco Use [...] the largest size for disposable bed pads. Welder Gas Tungsten Arc suggested a script for reusable bed pads [...] [facility] MEDICINE [address] [place] [address] Frida Knapp, RN documented as of this encounter Visit Diagnoses Not on filedocumented in this encounter Additional Health Concerns Assessment Noted Time PHQ-9 Depression Total Score: 0 12/12/19 23 3:58 PM EDT documented as of this encounter Care Teams Etch Operator Semiconductor Wafers Relationship Specialty Start Date End Date Ginger Perez FNP 230 [place] [address] PCP - General Family Medicine 08/13/22 [facility] [place] 11/01/22 documented as of this encounter
--- OUTSIDE RECORDS SUMMARY | 2025-07-12 16:58 | XMS_ITS | Encounter Summary ---
Demographics Address [address] [facility] [address] [place] [address] Mobile Phone Work Phone Home Phone Email Address Preferred Language en Marital Status Single Rastafari Affiliation Unknown Race Other Race Ethnic Group Unknown Author Organization [employer] Address [address] [facility] 7t [place] [address] Care Team Providers Care [place] Boatman Name Role Phone Ana [facility] Primary Care Provider [phone] Encounter Details Date Type Department Care Team (Late st Contact Info) Description 12/22/2024 Orders Only [facility] 230 [place], [place] [phone] ProviderDalton MD Social History Tobacco Use Types [...] know I am going to refer to WEB APPLICATIONS DEVELOPER for further evaluation. Thanks! documented in this encounter Plan of Treatment Upcoming Encounters Date Type Department Care Team (Late st Contact Info) Description 09/29/2025 11:30 AM EST Clinical Support [address] [address] Frida Knapp RN documented as of this [...] documented as of this encounter Care Teams River And Lakes Boatman Relationship Specialty Start Date End Date Ginger Perez FNP 230 [place] [address] PCP - General Family Medicine 08/13/22 [facility] [place] 11/01/22 documented as of this encounter
--- OUTSIDE RECORDS SUMMARY | 2025-07-12 16:58 | XMS_ITS | Encounter Summary ---
Author Organization [employer] Address [address] [facility] [address] [place] [address] Care Team Providers Care Fourth Officer Name Role Phone [facility] Primary Care Provider [phone] Reason for Visit * Reason Comments Med Refill Encounter Details Date Type Department Care Team ([facility] st Contact Info) Description 06/16/2025 Refill [facility] [address] [place], [place] [phone] [facility] [address] [place] [address] Other chronic pain Social History Tobacco Use [...] AM EST Clinical Support [facility] MEDICINE 230 [place] [address] Frida Knapp, OZZY documented as of this encounter Visit Diagnoses Diagnosis Other chronic pain documented in this encounter Additional Health Concerns Assessment Noted Time PHQ-9 Depression Total Score: 13 024 11:27 AM EDT documented as of this encounter Care Teams Fourth Officer Relationship Specialty Start Date End Date Ginger Perez FNP 230 [place] [address] PCP - General Family Medicine 08/13/22 [facility] [place] Care 11/01/22 documented as of this encounter
--- OUTSIDE RECORDS SUMMARY | 2025-07-12 16:58 | XMS_ITS | Clinical Summary ---
Author Organization [employer] Address [address] [place] [address] Care Team Providers Care Oyster Opener Name Role Phone Ginger Perez SPECIALTY [employer] PRODUCTS SUPERVISOR Primary Care Provider [phone] Allergies Active Allergy Reactions Criticality Noted Date [...] by mouth at bedtime. Active Continuous Glucose Deputy Commissioner (Dexcom G7 Deputy Commissioner) device use as directed Active Continuous Glucose [...] 2-3 HOURS BEFORE BEDTIME. 90 tablet 3 Active terbinafine (LamISIL) 1 % cream apply to the affected area(s) twice daily Active dextran 70-hypromellose (artificial tears) 0.1-0.3 % ophthalmic solution Administer 1 drop into both eyes 4 times daily. 15 mL 11 025 2025 Active Vraylar 1.5 MG capsule take 1 capsule by mouth every day in the morning Active melatonin 5 MG tabletIndicatio ns:Mixed anxiety and depressive disorder TAKE 1 TABLET BY MOUTH EVERY EVENING 2-3 HOURS BEFORE BEDTIME. 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 EEG's normal. Per neurology notes, possible dyskenisa s/t hx of antipsychotic medications which patient is no longer taking. Not currently taking any anti- seizure medications. No seizure episodes >2 months. Episodes triggered by emotional stress. Bariatric surgery status 09/29/2022 Overview (09/29/2022): Lap band was removed approx 8 years ago in [facility]; repeat lap band through [facility] without weight loss. Very upset by experience at [facility]. Currently working with [facility] weight mgnmt for removal of lap band. Assessment & Plan (05/03/2023 10:30 AM EDT): Details of current weight mngmt plan through [facility] unclear. Will request notes and follow up as indicated Obstructive sleep apnea 09/29/2022 Overview (06/04/2023): Compliant with BiPAP Followed by [facility] neurology and sleep clinic. Dr. Temple Gender dysphoria in adult 09/29/2022 Overview (09/29/2022): Interested in pursuing top and bottom gender reassignment surgery Not a candidate for hormone therapy Healthcare maintenance 09/29/2022 Overview (02/25/2024): Mammo: 07/2022--Birads 2 Pap: HPV negative 2019, no cytology on record. C-scope: Upcoming colonoscopy [facility] GI BMD: Routine age 63 Chronic pain [...] medication management. Any issues or concerns, contact [facility]. All his questions were answered and I [...] be left alone, encouraged to request increased [employer] hours. Will increase bedtime Gabapentin to 1200 [...] of family members and/or 1 of 2 [employer]'s always present. Patient was able to contract [...] We did not discuss my planned senior living today. F/U with me in 1 month. [...] morning Jardiance 25 mg daily Followed by [facility] Boilers Inspector Has dexcom CGM Metformin stopped due to [...] 2.5mg Continue to follow as scheduled with [facility] DM educator Will task RN's to contact patients healthcare or medical to ensure that [facility] is aware of med change. Strongly encouraged patient to continue with [facility] [employer] [facility] services due to multiple chronic conditions and patient's difficulty self managing care. Patient verbalizes understanding and agrees to plan Assessment & Plan (05/03/2023 10:15 AM EDT): Continue to work with [facility] DM educator Henny-will request records and recent blood glucose log with plan to titrate up tresiba if no concern re hypoglycemia based on repot. Unfortunately patient does not have dexcom sensor in office today or home BS log. Will submit PA request for elvie given max dose of trulicity Assessment & [...] or hyperglycemia -Follow up with PCP Epilepsy ([facility]) 04/18/2012 3 Encounters Date Type Department Care Team Description 07/12/2025 2:00 PM EST Office Visit [facility] MEDICINE [address] [place] [address] ArmonaGinger [facility] Chronic bilateral low back pain without sciatica (Primary Dx); Bilateral chronic knee pain; Encounter for immunization 07/12/2025 Orders Only [facility] MEDICINE [address] [place] [address] ArmonaGinger [facility] 07/12/2025 Travel 07/06/2025 11:30 AM EST Office Visit [facility] OPTOMETRY [address] [place] [address] Jake, Jaycee, OD Presbyopia (Primary Dx); Dry eyes; Diabetes type 2, no ocular involvement ([facility]) 07/06/2025 Travel 07/05/2025 Patient Outreach [facility] MEDICINE [address] [place] [address] Ginger Perez FNP Pre-visit Planning (SDOH screening was completed on 12/07/2024) 06/28/2025 10:30 AM EDT Clinical Support [facility] MEDICINE [address] [place] [address] Frida Knapp, OZZY Long-term current use of benzodiazepine (Primary Dx) 06/28/2025 Travel 06/21/2025 Refill [facility] MED & PEDS [address], [place] [phone] ArmonaGinger [employer]ODU[employer] SUPERVISOR Mixed anxiety and depressive disorder 06/16/2025 Refill [facility] MED & PEDS [address] [place] [address] ArmonaGinger [employer]ODU[employer] SUPERVISOR Other chronic pain 06/14/2025 Refill [facility] PED[facility] [address], [place] [phone] ArmonaGinger canales FNP Mixed anxiety and depressive disorder 06/11/2025 Refill [facility] MEDICINE [address] [place] [address] ArmonaGinger canales FNP Mixed anxiety and depressive disorder 06/08/2025 10:20 AM EDT Office Visit [facility] OPTOMETRY [address] [place] [address] Jake, Jaycee, OD Diabetes type 2, no ocular involvement (HCC) (Primary Dx) 06/08/2025 Travel 06/07/[address] [address] Frida Knapp, RN Error (VOID this visit) 06/07/[address] [address] Ginger Perez FNP Appointment Request 06/02/2025 Orders Only GENERIC EXTERNAL DATA DEPARTMENT Provider, Generic External Data 05/31/[address] [address] Ginger Perez FNP Durable Medical Equipment 05/26/2025 Refill [facility] MEDICINE [address] [place] [phone] Donna Dow, Constipation, unspecified constipation type 05/21/2025 Telephone [facility] MEDICINE [address] [place] [phone] Ginger Perez, [employer]ODU[employer] SUPERVISOR Med Refill 05/19/2025 Orders Only [facility] External Provider, [facility] 05/18/2025 Travel 05/18/2025 Refill [facility] MEDICINE [address] [place] [address] Ginger Perez, SPECIAL[employer] PRODUCTS SUPERVISOR Mixed anxiety and depressive disorder 05/17/2025 Refill [facility] MED & PEDS [address] [place] [address] Ginger Perez, SPECIAL[employer] PRODUCTS SUPERVISOR Other chronic pain 05/12/2025 Refill [facility] MED & PEDS [address] [place] [address] Ginger Perez, SPECIAL[employer]ODU[employer] SUPERVISOR 05/11/2025 Refill [facility] MEDICINE [address] [place] [address] Ginger Perez, [facility] Mixed anxiety and depressive disorder 04/19/2025 Telephone [facility] MEDICINE [address] [place] [address] Ginger Perez, SPECIAL[employer]ODUCTS SUPERVISOR 04/19/2025 Refill [facility] CHC MED & PEDS [address] [place] [address] ArmonaGinger, SPECIAL[employer]ODU[employer] SUPERVISOR 04/14/2025 Telephone [facility] MEDICINE [address] [place] [address] ArmonaGinger, [facility] MRI ORDER 04/14/2025 Refill [facility] MEDICINE [address] [place] [address] Armona Ginger, [facility] Mixed anxiety and depressive disorder from Last 3 Months Immunizations Immunization Administration Dates Next Due Hep B, adult 06/25/2019,05/06/2019 Influenza injectable quadriv alent IIV4 with preservative 05/24/2016 Influenza injectable quadriv alent preservative free 06/05/2023,06/21/2022,07/06/2019 Influenza, IIV3, injectable 07/22/2014,0 05/31/2011,06/30/2008,06/05,08/02/2003,07/08/2001 Influenza, Split (incl. mark fied surface antigen) 06/03/2012 Influenza, seasonal, injecta ble, preservative free 07/12/2025 Pneumococcal Conjugate PCV 20 04/12/2023 Pneumococcal Polysaccharide [...] 20 07/12/2025 1:45 PM EST Oxygen Saturation 100% 01/18/2025 11:06 AM EDT Inhaled Oxygen Concentration - - Weight 86.6 kg (191 lb) 07/12/2025 1:45 PM EST Height 157.5 cm (5' 2 ) 07/12/2025 1:45 PM EST Body Mass Index 34.93 07/12/2025 1:45 PM EST Plan of Treatment Upcoming Encounters Date Type Department Care Team (Late st Contact Info) Description 09/29/2025 11:30 AM EST Clinical Support [facility] MEDICINE [address] [place] [phone] Frida Knapp, RN Health Maintenance Due Date Last Done Comments CT Colonography 1965 FIT DNA/Cologuard 1963 FIT 1963 FOBT 1965 Sigmoidoscopy 1965 Disability Screening 1963 Diabetes: Foot Exam 1973 Alcohol/Substance Use Screening 1975 Diabetes: Urine Protein Screening 1982 Hepatitis A Vaccines (1 of 2 - Risk 2-dose series) 1982 Zoster Vaccines (2 of 2) 06/07/2023 04/12/2023 RSV Patients and Patients Aged 60 years or older (1 - Risk 60-74 years 1-dose series) 2023 Depression Monitoring 09/16/2024 03/16/2024, 024 COVID-19 Vaccine ( season) 2025 Mammogram 08/27/2025 08/27/2024, 07/03, 2022, Additional history exists Lipid Panel 09/14/2025 09/14/2024, 06/03, 09/25/2022, Additional history exists Diabetes: Hemoglobin A1C 09/22/2025 025, 12/16/2024, 05/13/2024, Additional history exists SDOH Screening 12/07/2025 12/07/2024 Tobacco Screening 07/12/2026 07/12/2025 Eye Exam 07/06/2027 07/06/2025, 12/2024, 07/06/2025, Additional history exists Cervical Cancer Screening 09/08/2029 HPV/Cotest 09/08/2029 09/08/2024, 09/09/2019 Pap Smear 09/08/2029 09/08/2024, 09/09/2019 DTaP/Tdap/Td Vaccines (3 - Td or Tdap) 06/21/2032 06/21/2022, 02/07/2010 Colonoscopy 12/24/2034 12/24/2024 Colorectal Cancer Screening 12/24/2034 Hepatitis B Vaccines Discontinued 06/25/2019, 05/06/20 Hepatitis C Screening Completed 09/25/2022 Pneumococcal Vaccine: 50+ Years Completed 04/12/2023, 04/20/2012, 06/05/2007 HIV Screening Completed 10/01/2024, 09/02, 09/25/2022 Influenza Vaccine Completed 07/12/2025, , 06/21/2022, Additional history exists HIB Vaccines Aged Out No longer eligi [...] VIEWS RIGHT Routine 07/12/2025 3:22 PM EST XR KNEE 4+ VIEWS LEFT Routine 07/12/2025 3:19 PM EST XR LUMBAR SPINE COMPLETE 4+ VIEWS Routine 07/12/2025 3:17 PM EST Chronic bilateral low back pain without sciatica POCT BLANKA-14 URINE DRUG SCREEN Routine 06/28/2025 [...] coma, with long-term current use of insulin ([facility]) HM COLONOSCOPY Routine 12/24/2024 HIV 1/2 ANTIGEN/ANTIBODY, FOURTH GENERATION W/RFL Routine 10/01/2024 9:58 AM EST Type 2 diabetes mellitus with chronic kidney disease, with long-term current use of insulin, unspecified CKD stage (CMS/HCC) LIPID PANEL, STANDARD Routine 09/14/2024 1:25 PM EST Type 2 diabetes mellitus with hypoglycemia without coma, with long-term current use of insulin ([facility]) PAP SMEAR Routine 09/08/2024 9:30 AM EST [...] Relevant to Health Maintenance Results * XR Knee 4+ Views Right (07/12/2025 3:22 PM EST) Anatomical Region Laterality Modality Lower Extremities, Knee Right Radiogra phic Imaging 07/12/2025 3:22 PM EST Narrative 07/12/2025 3:41 PM EST [address] [address] XRay Report Signed Patient: Hilda Mcmahan MR#: [id number] : 1965 Acct:[id number] Age/Sex: 60 / F ADM Date: 07/12/25 [facility]: Ginger Perez SPECIAL[employer]ODUCTS SUPERVISOR Ordering Physician: Ginger Perez Date of Service: 07/12/25 Procedure(s): XR knee RT 4V Accession Number(s): [id number] cc: Ginger Perez [facility] Reason for Exam: PAIN EXAMINATION: XR KNEE, [...] 07/12/25 1538 DD/ 1522 TD/TT: 07/12/25 1523 Electric Razor Assembler: Procedure Note Donotuseinterpreter, Image - 07/12/2025 [facility] [address] [place] [address] XRay Report Signed Patient: Hilda McmahanMR#: [id number] : 1965Acct:[id number] Age/Sex: 60 / FADM Date: 07/12/25 Loc: [facility] Attending Dr: Ginger Armona [facility] Ordering Physician: Ginger Perez Date of Service: 07/12/25 Procedure(s): XR knee RT 4V Accession Number(s): [id number] [facility] Reason for Exam: PAIN EXAMINATION: XR KNEE, [...] 07/12/25 1538 DD/ 1522 TD/TT: 07/12/25 1523 Electric Razor Assembler: [facility] IMG XR PROCEDURES Edited Resu lt - Final * XR Knee 4+ Views Left (07/12/2025 3:19 PM EST) Anatomical Region Laterality Modality Lower Extremities, Knee Left Radiogra psychiatricc Imaging 07/12/2025 3:19 PM EST Narrative 07/12/2025 3:34 PM EST [facility] [address] [place] [address] XRay Report Signed Patient: Hilda Mcmahan MR#: [id number] : 1965 Acct:[id number] Age/Sex: 60 / F ADM Date: 07/12/25 Loc: [facility] Attending Dr: Ginger DUARTE Ordering Physician: Ginger Perez Date of Service: 07/12/25 Procedure(s): XR knee LT 4V Accession Number(s): [id number] cc: Ginger Perez Reason for Exam: Acute on chronic bilateral [...] 07/12/25 1531 DD/ 1519 TD/TT: 07/12/25 1523 Electric Razor Assembler: Procedure Note Donotuseinterpreter, Image - 07/12/[address] [address] XRay Report Signed Patient: Hilda McmahanMR#: [id number] : 1965Acct:[id number] Age/Sex: 60 / FADM Date: 07/12/25 Loc: [facility] Attending Dr: Ginger DUARTE Ordering Physician: Ginger Perez Date of Service: 07/12/25 Procedure(s): XR knee LT 4V Accession Number(s): [id number] cc: Ginger Perez Reason for Exam: Acute on chronic bilateral [...] Manny Olivia MD 07/12/2025 03:31 PM EST RP Dictated By: Manny Olivia MD Signed By: <Electronically signed by Manny Olivia MD in OV> 07/12/25 1531 DD/ 1519 TD/TT: 07/12/25 1523 Electric Razor Assembler: [facility] IMG XR PROCEDURES Edited Resu lt - Final * XR Lumbar Spine Complete 4+ Views (07/12/2025 3:17 PM EST) Anatomical Region Laterality Modality Spine, L-spine Radiographic Wilma ging 07/12/2025 3:17 PM EST Narrative 07/12/2025 3:40 PM EST [address] [address] XRay Report Signed Patient: Hilda Mcmahan MR#: [id number] 5104 : 1965 Acct:[id number] Age/Sex: 60 / F ADM Date: 07/12/25 Loc: [facility] Attending Dr: Ginger DUARTE Ordering Physician: Ginger Perez Date of Service: 07/12/25 Procedure(s): XR lumbar spine 4V min Accession Number(s): [id number] cc: Ginger Perez [facility] Reason for Exam: Acute on chronic LBP [...] by: Manny Olivia MD 07/12/2025 03:36 PM EST RP Dictated By: Manny Olivia MD Signed By: <Electronically signed by Manny Olivia MD in OV> 07/12/25 1536 DD/ 1517 TD/TT: 07/12/25 1523 Electric Razor Assembler: Procedure Note Donotuseinterpreter, Image - 07/12/[address] [address] XRay Report Signed Patient: Hilda McmahanMR#: [id number] : 1965Acct:[id number] Age/Sex: 60 / FADM Date: 07/12/25 [facility]: Ginger Perez SPECIAL[employer]ODUCTS SUPERVISOR Ordering Physician: Ginger Perez Date of Service: 07/12/25 Procedure(s): XR lumbar spine 4V min Accession Number(s): [id number] cc: Ginger PerezP Reason for Exam: Acute on chronic LBP [...] by: Manny Olivia MD 07/12/2025 03:36 PM EST RP Dictated By: Manny Olivia MD Signed By: <Electronically signed by Manny Olivia MD in OV> 07/12/25 1536 DD/ 1517 TD/TT: 07/12/25 1523 Electric Razor Assembler: [facility] IMG XR PROCEDURES Edited Resu lt - Final * (ABNORMAL) POCT BLANKA-14 Urine Drug Screen (06/28/2025 12:47 PM EDT) THC Positive(A) Negative Cocaine Screen, Urine Negative Negative Opiate Screen, Urine Negative Negative Methamphetamine Screen Urine Negative Negative Amphetamine Screen, Urine Negative Negative Benzodiazepines Screen, Urine Positive(A) Negative 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 06/08/26 Internal Pass Control [facility] POINT OF CARE TEST ENTER/EDIT ORDERABLES [...] recall for a dilated diabetic eye exam. us Jaycee Joseph OD OPHTH PHOTOGRAPHY Final Resul t * Glucose, Whole Blood (06/02/2025 3:36 PM EDT) Glucose, Whole Blood 84 60 - 115 mg/dL [facility] Comment:METER #: [id number] 0Testing performed in the Endocrinology Department [address] , [address], [facility]. 06/02/2025 3:36 PM EDT 06/02/2025 3:43 PM EDT us Generic External Data Provider LAB BLOOD ORDERAB LES Final Result Performing Organization Address City/State/[facility] Co de Phone Number [facility] [address] [place] [phone] * XR Foot 3+ Views Left (05/19/2025 2:24 PM EDT) Anatomical Region Laterality Modality Lower Extremities, Foot Left Radiogra phic Imaging 05/19/2025 2:24 PM EDT Narrative 05/19/2025 2:40 PM EDT [address] [address] XRay Report Signed Patient: Hilda Mcmahan MR#: [id number] 5104 : 1965 Acct:[id number] Age/Sex: 59 / F ADM Date: 05/19/25 Loc: [facility] Attending Dr: Nichelle Catalan DPM Ordering Physician: Nichelle Catalan DPM Date of Service: 05/19/25 Procedure(s): XR foot LT min 3V Accession Number(s): [id number] cc: Nichelle Catalan DPM; [facility] Reason for Exam: M79.675 - Pain in [...] 05/19/25 1436 DD/ 1424 TD/TT: 05/19/25 1420 Electric Razor Assembler: Procedure Note Donotuseinterpreter, Image - 05/19/[address] [address] XRay Report Signed Patient: Hilda McmahanMR#: [id number] : 1965Acct:[id number] Age/Sex: 59 / FADM Date: 05/19/25 Loc: [facility] Attending Dr: Nichelle Catalan DPM Ordering Physician: Nichelle Catalan DPM Date of Service: 05/19/25 Procedure(s): XR foot LT min 3V Accession Number(s): [id number] cc: Nichelle Catalan DPM; [facility] Reason for Exam: M79.675 - Pain in [...] 05/19/25 1436 DD/ 1424 TD/TT: 05/19/25 1420 Electric Razor Assembler: [facility] External Provider IMG XR PROCEDURES Edited Result - Final * (ABNORMAL) POCT HGB A1C (03/22/2025 11:53 AM EDT) Pathologist [facility] Hemoglobin A1C 5.8(A) 4.0 - 5.7 % QC Media Lot # [id number] Lot# Expiration Date Blood 03/22/2025 11:5 3 AM EDT [facility] SPECIALTY FOOD PRODUCTS SUPERVISOR POINT OF CARE TEST ENTER/EDIT ORDERABLES Final Result * Colonoscopy (12/24/2024) Pathologist [facility] Colonoscopy Normal Normal Comment:negative repeat 10 y ears. Historical Provider HEALTH MAINTENANCE Final Result * HIV-1/2 Antigen and Antibodies, Fourth Generation, with Reflexes (10/01/2024 9:58 AM EST) Pathologist [facility] HIV AB/AG Nonreactive Nonreactive [facility] Comment:HIV-1 p24 Ag and/or HIV-1/HIV-2 Ab not detected.A test result that is nonreactive does not exclude thepossibility of exposure to or infection with HIV-1 and/orHIV-2. Nonreactive results in this assay for individualswith prior exposure to HIV-1 and/or HIV-2 may be due toantigen and antibody levels that are below the limit ofdetection of this assay.The [employer] HIV Ag/Ab Combo assay result andsupplemental assay results should be interpreted inconjunction with the patient's clinical presentation,history and other laboratory results. If the results areinconsistent with clinical evidence, additional testing issuggested to confirm the result. Blood Venous blood specimen / Unknown 10/01/2024 9:58 AM EST 10/01/2024 11:04 AM EST [facility] LAB BLOOD ORDERABLES Final Re sult Performing Organization Address [facility] Co de Phone Number [facility] [address] [place] [address] [phone] * (ABNORMAL) Lipid Panel, Standard (09/14/2024 1:25 PM EST) Triglycerides 123 <150 mg/dL [facility] Comment:Desirable Triglyceri de: less than 150 mg/dLBorderline High Triglyceride 150-199 mg/dLHigh Triglyceride: 200-499 mg/dLVery High Triglyceride: greater than or equal to 5OO mg/dL Cholesterol 146 <200 mg/dL [facility] Comment:Desirable Cholestero l: less than 200 mg/dLBorderline High Cholesterol: 200-239 mg/dLHigh Cholesterol: greater than 239 mg/dL LDL Cholesterol Calculated 83 <100 mg/dL [facility] Comment:Desirable LDL: less than 100 mg/dLNear Optimal/Above Optimal LDL: 110- 129 mg/dLBorderline High LDL: 130-159 mg/dLHigh LDL: 160-189 mg/dLVery High LDL: greater than or equal to 190 mg/dL HDL Cholesterol 39(L) >40 mg/dL [facility] Comment:Desirable HDL: great er than 40 mg/dL Note: This HDL assay may give artificially low results in patients with liver disease. Blood Venous blood specimen / Unknown 09/14/2024 1:25 PM EST 09/14/2024 4:07 PM EST [facility] LAB BLOOD ORDERABLES Final Re sult Performing Organization Address City/[facility]/ZIP Co de Phone Number [facility] [address] [place] [phone] * Pap Smear (09/08/2024 9:30 AM EST) Swab Cervix uteri structure / Unknown 09/08/2024 9:30 AM EST 09/09/2024 10:20 AM EST Narrative [facility] - 09/17/2024 3:06 PM EST ----- ------- Name: Hilda Mcmahan Age/Sex: 59/F : 1965 Unit#: [id number] Attend Dr: CORIBN HUGHES CNM Re09/08/24 Status: DEP REF Location: [facility] Disch: ----- ------- SPEC : [id number] RECD: 09/09/24-1019 STATUS: HENNA SOLIS NUM: [id number] LORI: 09/08/[address] [facility] [address]: CORBIN HUGHES CNM ENTERED: 09/09/24 SP TYPE: Pap Smr OT : ORDERED: Pap Smear Interpretation Satisfactory for evaluation. Negative for intraepithelial lesion or malignancy. No endocervical cells seen. HPV High Risk: Negative HPV Genotyping 16: Negative HPV Genotyping 18: Negative Clinical Information LMP: Postmenopausal Previous PAP test: 2019, WNL Other history: Postmenopausal bleeding Material Received ThinPrep-Cervical ----- ------- Signed (signature on file) TALIB Roche (ASCP) 09/17/24 1506 ----- ------- END OF REPORT Corbin Hughes [facility] LAB CYTOLOGY ORDERABLES F inal Result [facility] [address] [place] [phone] * HPV mRNA E6/E7 w/Reflex to HPV Genotypes 16, 18/45 (09/08/2024 12:00 AM EST) [facility] Provider MD LAB CYTOLOGY ORDERABLES F inal Result * BI Mammogram Screening Tomosynthesis Bilateral (08/27/2024 1:05 PM EST) Anatomical Region Laterality Modality Breast Bilateral Mammography 08/27/2024 1:05 PM EST Narrative 09/08/2024 4:57 PM EST [facility] [address] [place] [address] Mammography Report Signed Patient: Hilda Mcmahan MR#: [id number] : 1965 Acct:[id number] Age/Sex: 59 / F ADM Date: 08/27/24 Loc: [facility] Attending Dr: Oz Sahni MD Ordering Physician: Ginger Perez SPECIALTY [employer]OD PRODUCTS SUPERVISOR Results: 1Nega tive Date of Service: 08/27/24 Follow Up: 1 Year From Orig inal Mammogram Procedure(s): MM tomosynthesis screening BI Accession Number(s): [id number] cc: Ginger Perez SPECIAL[employer]ODU[employer] SUPERVISOR EXAMINATION: MM SCREENING DIGITAL BREAST TOMOSYNTHESIS, BILATERAL [...] 09/08/24 1654 DD/ 1305 TD/TT: 08/27/24 1329 Electric Razor Assembler: Procedure Note Donotuseinterpreter, Image - 09/08/2024 [facility] [address] [place] [address] Mammography Report Signed Patient: Hilda McmahanMR#: [id number] : [id number]:[id number] Age/Sex: 59 / FADM Date: 08/27/24 Loc: GIANLUCA Attending Dr: Oz Sahni MD Ordering Physician: Ginger Perez FNPResults: 1Nega tive Date of Service: 08/27/24Follow Up: 1 Year From Orig inal Mammogram Procedure(s): MM tomosynthesis screening BI Accession Number(s): [id number] cc: [facility] EXAMINATION: MM SCREENING DIGITAL BREAST TOMOSYNTHESIS, BILATERAL [...] 09/08/24 1654 DD/ 1305 TD/TT: 08/27/24 1329 Electric Razor Assembler: [facility] [employer] [employer] SUPERVISOR IMG BI PROCEDURES Final Resul t * Hepatitis C Antibody with Reflex to HCV, RNA, Quantitative, Real-Time PCR (09/25/2022 12:06 PM EST) Hepatitis C Antibody NON-REACT MARRY NON-REACT MARRY [employer] Index 0.12 <1.00 [employer] Comment: HCV antibody was non-reactive. There is no laboratory evidence of HCV infection. In most cases, no further action is required. However, if recent HCV exposure is suspected, a test for HCV RNA (test code 27261) is suggested. For additional information please refer to http://education.Givey/faq/NEO62n7 (This link is being provided for informational/ educational purposes only.) Blood Venous blood specimen / Unknown 09/25/2022 12:06 PM EST 09/25/2022 12:06 PM EST Narrative [facility] - 09/27/2022 8:46 AM EST FASTING:YES FASTING: YES [facility] LAB BLOOD ORDERABLES Final Re sult [facility] [address] [facility] [place] [address] [facility] [address] [facility], ([address]) [place] [address] from Last 3 Months or Most Recently Relevant to Health Maintenance [facility] Care Teams Oyster Opener Relationship Specialty Start Date End Date Armona [place], [facility] [address] [place] [address] PCP - General Family Medicine 08/13/22 [facility] Home Care 11/01/22
--- OUTSIDE RECORDS SUMMARY | 2025-07-12 16:58 | XMS_ITS | Encounter Summary ---
Author Organization [employer] Address [address] [facility] [address] [place] [address] Care Team Providers Care Animal Care Supervisor Name Role Phone Ginger Perze [facility] Primary Care Provider [phone] Reason for Visit * Reason Comments Med Refill Encounter Details Date Type Department Care Team (Late st Contact Info) Description 01/14/2025 Refill [facility] [address] [place], [place] [phone] Donna Dow, [address] [place], [place] [phone] Mixed anxiety and depressive disorder Social History [...] Description 09/29/2025 11:30 AM EST Clinical Support [facility] [address] [place] [address] Frida nKapp, OZZY documented as of this encounter Visit Diagnoses Diagnosis Mixed anxiety and depressive disorder Dysthymic disorder documented in this encounter Additional Health Concerns Assessment Noted Time PHQ-9 Depression Total Score: 13 024 11:27 AM EDT documented as of this encounter Care Teams Animal Care Supervisor Relationship Specialty Start Date End Date Ginger Perez FNP [address] [place] [address] PCP - General Family Medicine 08/13/22 [facility] Home Care 11/01/22 documented as of this encounter
--- OUTSIDE RECORDS SUMMARY | 2025-07-12 16:58 | XMS_ITS | Encounter Summary ---
Author Organization [facility] Address [address] [facility] [address] [place] [phone] Phone Care Team Providers Care Assistant Secretary Name Role Phone Guille Valentine NP Primary Care Provider Reason for Referral * Consultation (Elective) - Closed Specialty Diagnoses / Procedures Referred By Contjaden t Referred To Contact Neurology Diagnoses Tremor System, Provider Not In, [facility] [address] [address] Phone: tel: Referral ID Status Reason Start Date Expiration Date Visits Re quested Visits Authorized [id number] Closed 08/11/2020 08/11/2021 1 1 Encounter Details Date Type Department Care Team (Late st Contact Info) Description 08/11/2020 Transcribe Orders [facility] Department of Neurology [address] [place] [address], [address] Floor, [address] [place] [address] System, Provider [place] In, [place] [address] Tremor (Primary Dx) Social History Tobacco Use [...] Associated Diagnoses Order Schedule Ambulatory referral to [facility] Neurology Outpatient Referral Routine Tremor Ordered: 08/11/2020 documented as of this encounter Visit Diagnoses Diagnosis Tremor- Primary Abnormal involuntary movements documented in this encounter Care Teams Assistant Secretary Relationship Specialty Start Date End Date Guille Valentine NP [address] [place] [address] PCP - General Family Medicine 07/03/19 documented as of this encounter Additional Source Comments The information contained in this document represents components of the legal health record. It is not the complete legal health record.[facility]
--- OUTSIDE RECORDS SUMMARY | 2025-07-12 16:58 | XMS_ITS | Encounter Summary ---
Author Organization [employer] Address [address] [facility] [address] [place] [address] Care Team Providers Care Box Truck Driver Name Role Phone Ana [facility] Primary Care Provider [phone] Reason for Visit * Reason Comments Med Refill Encounter Details Date Type Department Care Team ([facility] st Contact Info) Description 05/22/2024 Refill [facility] [address] [place] [address] Roma Man MD [address] [place] [address] Onychomycosis Social History Tobacco Use Types Packs/Day [...] EST Clinical Support [facility] [address] [place] [address] Frida Knapp RN documented as of this encounter Visit Diagnoses Diagnosis Onychomycosis Dermatophytosis of nail documented in this encounter Additional Health Concerns Assessment Noted Time PHQ-9 Depression Total Score: 13 024 11:27 AM EDT documented as of this encounter Care Teams Box Truck Driver Relationship Specialty Start Date End Date Ginger Perez FNP [address] [place] [address] PCP - General Family Medicine 08/13/22 [facility] Home Care 11/01/22 documented as of this encounter
--- OUTSIDE RECORDS SUMMARY | 2025-07-12 16:58 | XMS_ITS | Encounter Summary ---
Author Organization [email or web address] Address [address] [facility] [address] [place] [address] Care Team Providers Care Repairer Shoe Sticks Name Role Phone Ana [facility] Primary Care Provider [phone] Encounter Details Date Type Department Care Team ([facility] st Contact Info) Description 12/30/2024 Orders Only [facility] [address] [place], [place] [phone] Mary Gu Social History Tobacco Use Types [...] Description 09/29/2025 11:30 AM EST Clinical Support [facility] [address] [place] [address] Frida Knapp RN documented as of this [...] documented as of this encounter Care Teams Repairer Shoe Sticks Relationship Specialty Start Date End Date Ginger Perez FNP [address] [place] [address] PCP - General Family Medicine 08/13/22 [facility] Home Care 11/01/22 documented as of this encounter
--- OUTSIDE RECORDS SUMMARY | 2025-07-12 16:58 | XMS_ITS | Encounter Summary ---
Author Organization [email or web address] Address [address] [facility] [address] [place] [address] Care Team Providers Care Consumer Educator Name Role Phone [place], [facility] Primary Care Provider [phone] Encounter Details Date Type Department Care Team ([facility] st Contact Info) Description 12/20/2022 Telephone [facility] [address] [place], [place] [phone] [facility] [address] [place], [place] [phone] Social History Tobacco Use Types Packs/Day Years [...] - 12/20/2022 4:16 PM EDT Tc from [facility] requesting status on orders that needed to be sign by PCP on oct Please contact isci at [phone] documented in this encounter Plan of Treatment Upcoming Encounters Date Type Department Care Team (Late st Contact Info) Description 09/29/2025 11:30 AM EST Clinical Support [facility] [address] [place] [address] Frida Knapp RN documented as of this encounter Visit Diagnoses Not on filedocumented in this encounter Additional Health Concerns Assessment Noted Time PHQ-9 Depression Total Score: 0 12/12/19 3:58 PM EDT documented as of this encounter Care Teams Consumer Educator Relationship Specialty Start Date End Date Ginger Perez FNP [address] [place] [address] PCP - General Family Medicine 08/13/22 [facility] Home Care 11/01/22 documented as of this encounter
--- OUTSIDE RECORDS SUMMARY | 2025-07-12 16:58 | XMS_ITS | Encounter Summary ---
Author Organization [employer] Address [address] [facility] [address] [place] [address] Care Team Providers Care Fundraising Sale Representative Name Role Phone [facility] Primary Care Provider [phone] Reason for Visit * Reason Comments Med Refill Encounter Details Date Type Department Care Team ([facility] st Contact Info) Description 05/12/2025 Refill [facility] [address] [place], [place] [phone] [facility] [address] [place] [address] Social History Tobacco Use Types Packs/Day Years [...] Description 09/29/2025 11:30 AM EST Clinical Support [facility] [address] [place] [address] Frida Knapp, RN documented as of this encounter Visit Diagnoses Not on filedocumented in this encounter Additional Health Concerns Assessment Noted Time PHQ-9 Depression Total Score: 13 024 11:27 AM EDT documented as of this encounter Care Teams Fundraising Sale Representative Relationship Specialty Start Date End Date Ginger Perez FNP [address] [place] [address] PCP - General Family Medicine 08/13/22 [facility] Home Care 11/01/22 documented as of this encounter
--- OUTSIDE RECORDS SUMMARY | 2025-07-12 16:59 | XMS_ITS | Clinical Summary ---
Author Organization 175 [facility] Address [address] [place] [address] Phone Care Team Providers Care Windows Systems Engineer Name Role Phone [facility] Primary Care Provider [phone] Allergies Active Allergy Reactions Criticality Noted Date [...] 7 DAYS 30 each 1 4 Active pantoprazole (PROTONIX) 40 mg EC tabletIndications: Bariatric surgery status TAKE 1 TABLET BY MOUTH EVERY DAY 30 tablet 5 5 Active zinc gluconate 50 mg tabletIndications: Postoperative malabsorption TAKE 1 TABLET BY MOUTH DAILY 30 tablet 5 Active acetaminophen (TYLENOL) 500 mg tablet TAKE 2 TABLETS BY MOUTH EVERY 8 HOURS 180 tablet 1 5 Active nutritional drink (Ensure High Protein) liquidIndications: Postsurgical malabsorption, not elsewhere classified TAKE 333 ML BY MOUTH TWICE DAILY 32369 mL 2 5 Active simethicone (MYLICON) 80 mg chewable tablet CHEW AND SWALLOW 1 TABLET BY MOUTH EVERY 6 HOURS NEEDED FOR GAS 120 tablet 1 5 Active Active Problems Problem Noted Date [...] Overview (02/16/2025): Compliant with BiPAP Followed by [facility] neurology and sleep clinic. Dr. 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 EEG's normal. Per neurology notes, possible dyskenisa s/t hx of antipsychotic medications which patient is no longer taking. Not currently taking any anti- seizure medications. No seizure episodes >2 months. Episodes triggered by emotional stress. Chronic post-traumatic stress disorder 0 Diabetes mellitus ([facility] V24, [facility] V28) Headache 05/25/2020 Essential hypertension 05/25/2020 Mixed hyperlipidemia 05/25/2020 Seizures ([facility] V24, [facility] V28) 05/25/2020 Coarse tremors 11/12/2019 Hypertensive disorder [...] Encounters Date Type Department Care Team Description 07/06/2025 2:05 PM EST Lab Draw Station - 175 [facility] 175 [facility] [address] [place] [address] Postgastrectomy malabsorption 07/06/2025 1:30 PM EST Office Visit Bariatric Surgery - [address] [place] [address] Omer Beaver MD Postgastrectomy malabsorption (Primary Dx); Class 1 obesity due to excess calories with body mass index (BMI) of 34.0 to 34.9 in adult, unspecified whether serious comorbidity present 07/01/2025 Telephone Bariatric Surgery - [address] [place] [address] Omer Beaver MD 04/15/2025 Telephone Bariatric Surgery - [place] 175 [facility] [address] [place] [address] Omer Beaver MD from Last 3 Months Surgical History Surgery Date Site/Laterality Comments LAPAROSCOPIC GASTRIC BANDING 2011 and 01/15/2014 PROCEDURE: LAP ADJUSTABLE GASTRIC BAND; COMMENT: first band slipped, was replaced Medical History Medical History Date Comments Anxiety DX:Anxiety Asthma DX:Asthma Depression DX:Depression Diabetes mellitus type 2, uncomplicated ([facility] V24, [facility] V28) DX:Diabetes mellitus type 2, uncomplicated ([facility]) Hypertension DX:Hypertension LAP-BAND surgery status 12/02/2018 DX:LAP-B AND surgery status; COMMENT: x2 Morbid obesity with BMI of 5 0.0-59.9, adult ([facility] V24, [facility] V28) 12/02/2018 DX:Morbid obesity wit h BMI of 50.0-59.9, adult ([facility]) VELASQUEZ (obstructive sleep apnea) DX :VELASQUEZ (obstructive sleep apnea) Seizures ([facility] V24, [facility] V28) DX:Seizures ([facility]) Covid-19 DX:COVID-19; COM MENT: patient reports no [...] Sign Reading Time Taken Comments Blood Pressure 105/69 07/06/2025 1:36 PM EST Pulse 80 07/06/2025 1:36 PM EST Temperature 36.6 C (97.8 F) 07/06/2025 1:36 PM EST Respiratory Rate - - Oxygen Saturation - - Inhaled Oxygen Concentration - - Weight 86.2 kg (190 lb) 07/06/2025 1:36 PM EST Height 157.5 cm (5' 2 ) 07/06/2025 1:36 PM EST Body Mass Index 34.75 07/06/2025 1:36 PM EST Plan of Treatment Upcoming Encounters Date Type Department Care Team (Late st Contact Info) Description 11/16/2025 2:00 PM EDT Office Visit Bariatric Surgery - [address] [place] [address] Omer Beaver MD [facility] [place] [address] Health Maintenance Due Date Last Done Comments Breast Cancer Screening 1965 Colorectal Cancer Screening: Colonoscopy 1963 Diabetes: Annual Foot Exam 1973 RSV Immunization Adult Patients (1 [...] exists Diabetes: Blood Sugar Control Test (HGBA1C) 09/22/2025 03/22/2025, 12/16/2024 Diabetes: Annual Retina Eye Exam 06/08/2026 06/08/2025 Diabetes: Annual GFR (Glomerular Filtration Rate) 07/06/2026 07/06/2025, 11/17/2024, 03/10/2024 Hypertension/CHF/CAD Annual BMP Blood Test 07/06/2026 07/06/2025, 11/17/2024, 03/10/2024 Cervical Cancer Screening: Pap Smear [...] Priority Date/Time Associated Diagnosis Comments ZINC Routine 07/06/2025 2:02 PM EST Postgastrectomy malabsorption VITAMIN B6 Routine 07/06/2025 2:02 PM EST Postgastrectomy malabsorption VITAMIN D 25 HYDROXY Routine 07/06/2025 2:02 PM EST Postgastrectomy malabsorption VITAMIN B12 Routine 07/06/2025 2:02 PM EST Postgastrectomy malabsorption VITAMIN B1 Routine 07/06/2025 2:02 PM EST Postgastrectomy malabsorption VITAMIN A Routine 07/06/2025 2:02 PM EST Postgastrectomy malabsorption PARATHYROID HORMONE INTACT Routine 07/06/2025 2:02 PM EST Postgastrectomy malabsorption IRON AND TIBC Routine 07/06/2025 2:02 PM EST Postgastrectomy malabsorption FOLATE Routine 07/06/2025 2:02 PM EST Postgastrectomy malabsorption COMPREHENSIVE METABOLIC PANEL Routine 07/06/2025 2:02 PM EST Postgastrectomy malabsorption from Last 3 Months Results * Zinc (07/06/2025 2:02 PM EST) Pathologist [facility] Zinc, Serum/Plasma 86.1 50.0 - 150.0 ug/dL 07/09/2025 12:54 PM EST [facility] Comment: Elevated results may be due to sample collected in a non-certified trace element-free tube. This test was developed and the performance characteristics determined by [facility]. It has not been cleared or approved by the FDA. The laboratory is regulated under CLIA as qualified to perform high-complexity testing. This test is used for patient testing purposes. It should not be regarded as investigational or for research. Test performed at [facility], [address] , [place] [address] Piedad Chan MD, PhD - Wild Animal Caretaker Blood Venous blood specimen / Unknown Venipuncture / Unknown 07/06/2025 2:02 PM EST 07/06/2025 2:02 PM EST Omer Beaver MD LAB BLOOD ORDERABLES Final R esult [facility] [address] [place] [address] * Iron and TIBC (07/06/2025 2:02 PM EST) Pathologist [facility] Iron 107 40 - 150 mcg/dL LAB CHEMISTRY METHOD 07/06/2025 7:01 PM EST [facility] TIBC 271 250 - 450 mcg/dL LAB CHEMISTRY METHOD 07/06/2025 7:01 PM EST [facility] Iron Saturation 39 15 - 50 % LAB CHEMISTRY METHOD 07/06/2025 7:01 PM EST [facility] Blood Venous blood specimen / Unknown Venipuncture / Unknown 07/06/2025 2:02 PM EST 07/06/2025 2:02 PM EST us Omer Beaver MD LAB BLOOD ORDERABLES Final R esult Performing Organization Address City/[facility]/ZIP Co de Phone Number [facility] [address] [place] [address], [place] [phone] * Vitamin A (07/06/2025 2:02 PM EST) [facility] Vitamin A 67 38 - 106 ug/dL 07/12/2025 7:15 AM EST [facility] Comment: This test was developed and the performance characteristics determined by [facility]. It has not been cleared or approved by the FDA. The laboratory is regulated under CLIA as qualified to perform high-complexity testing. This test is used for patient testing purposes. It should not be regarded as investigational or for research. Test performed at [facility], [address] [place] [address] Piedad Chan MD, PhD - Wild Animal Caretaker Blood Venous blood specimen / Unknown Venipuncture / Unknown 07/06/2025 2:02 PM EST 07/06/2025 2:02 PM EST Omer Beaver MD LAB BLOOD ORDERABLES Final R esult Performing Organization Address [facility] Co de Phone Number [facility] [address] [place] [address] * Vitamin D 25 hydroxy (07/06/2025 2:02 PM EST) [facility] Vit D, 25-Hydroxy 48.1 30.0 - 80.0 ng/mL LAB CHEMISTRY METHOD 07/06/2025 7:54 PM EST [facility] Blood Venous blood specimen / Unknown Venipuncture / Unknown 07/06/2025 2:02 PM EST 07/06/2025 2:02 PM EST Omer Beaver MD LAB BLOOD ORDERABLES Final R esult [facility] [address] [place] [address], * Vitamin B1 (07/06/2025 2:02 PM EST) Vitamin B1 Whole Blood 86 38 - 122 ug/L 07/12/2025 9:16 AM EST [facility] Comment: This test was developed and the performance characteristics determined by [facility]. It has not been cleared or approved by the [facility]. The laboratory is regulated under CLIA as qualified to perform high-complexity testing. This test is used for patient testing purposes. It should not be regarded as investigational or for research. Test performed at [facility], [address] [place] [address] Piedad Chan MD, PhD - Wild Animal Caretaker Blood Venous blood specimen / Unknown Venipuncture / Unknown 07/06/2025 2:02 PM EST 07/06/2025 2:02 PM EST Omer Beaver MD LAB BLOOD ORDERABLES Final R esult [facility] [address] [place] [address] * Vitamin B6 (07/06/2025 2:02 PM EST) Vitamin B6 (Pyridoxine) Level 22 5 - 50 ug/L 07/12/2025 11:35 AM EST [facility] Comment: This test was developed and the performance characteristics determined by [facility]. It has not been cleared or approved by the FDA. The laboratory is regulated under CLIA as qualified to perform high-complexity testing. This test is used for patient testing purposes. It should not be regarded as investigational or for research. Test performed at [facility], [address], [place] [address] Piedad Chan MD, PhD - Wild Animal Caretaker Blood Venous blood specimen / Unknown Venipuncture / Unknown 07/06/2025 2:02 PM EST 07/06/2025 2:02 PM EST us Omer Beaver MD LAB BLOOD ORDERABLES Final R esult [address] [place] [address] * Parathyroid hormone intact (07/06/2025 2:02 PM EST) PTH 72.5 18.5 - 88.0 pcg/mL LAB CHEMISTRY METHOD 07/06/2025 7:54 PM EST [facility] Blood Venous blood specimen / Unknown Venipuncture / Unknown 07/06/2025 2:02 PM EST 07/06/2025 2:02 PM EST Omer Beaver MD LAB BLOOD ORDERABLES Final R esult Performing Organization Address City/[facility]/ZIP Co de Phone Number [facility] [address] [place] [address], [place] [phone] * (ABNORMAL) Folate (07/06/2025 2:02 PM EST) [facility] Folate 17.5(H) 2.8 - 17.0 ng/ml LAB CHEMISTRY METHOD 07/06/2025 7:24 PM EST [facility] Blood Venous blood specimen / Unknown Venipuncture / Unknown 07/06/2025 2:02 PM EST 07/06/2025 2:02 PM EST Omer Beaver MD LAB BLOOD ORDERABLES Final R esult Performing Organization Address City/[facility]/ZIP Co de Phone Number [facility] [address] [place] [address], [place] [phone] * Vitamin B12 (07/06/2025 2:02 PM EST) Vitamin B-12 630 250 - 900 pcg/mL LAB CHEMISTRY METHOD 07/06/2025 7:24 PM EST [facility] Blood Venous blood specimen / Unknown Venipuncture / Unknown 07/06/2025 2:02 PM EST 07/06/2025 2:02 PM EST us Omer Beaver MD LAB BLOOD ORDERABLES Final R esult [facility] [address] [place] [address], * Comprehensive metabolic panel (07/06/2025 2:02 PM EST) Sodium 141 133 - 145 mmol/L LAB CHEMISTRY METHOD 07/06/2025 7:24 PM [facility] Potassium 4.3 3.5 - 5.5 mmol/L LAB CHEMISTRY METHOD 07/06/2025 7:24 PM [facility] Chloride 109 96 - 110 mmol/L LAB CHEMISTRY METHOD 07/06/2025 7:24 PM [facility] CO2 29 21 - 32 mmol/L LAB CHEMISTRY METHOD 07/06/2025 7:24 PM [facility] Anion Gap 3 3 - 11 LAB CHEMISTRY METHOD 07/06/2025 7:24 PM [facility] Glucose 89 70 - 100 mg/dL LAB CHEMISTRY METHOD 07/06/2025 7:24 PM [facility] BUN 18 5 - 25 mg/dL LAB CHEMISTRY METHOD 07/06/2025 7:24 PM [facility] Creatinine 1.00 0.50 - 1.10 mg/dL LAB CHEMISTRY METHOD 07/06/2025 7:24 PM [facility] eGFR 64 >=60 mL/min/1. 73m2 LAB CHEMISTRY METHOD 07/06/2025 7:24 PM [facility] Comment:Calculation based on the Chronic Kidney Disease Epidemiology Collaboration (CKD-EPI) equation refit without adjustment for race. BUN/Creatinine Ratio 18.0 LAB CHEMISTRY METHOD 07/06/2025 7:24 PM [facility] Calcium 9.5 8.5 - 10.5 mg/dL LAB CHEMISTRY METHOD 07/06/2025 7:24 PM [facility] AST (SGOT) 21 10 - 42 unit/L LAB CHEMISTRY METHOD 07/06/2025 7:24 PM [facility] ALT (SGPT) 40 10 - 60 unit/L LAB CHEMISTRY METHOD 07/06/2025 7:24 PM [facility] Alkaline Phosphatase 77 42 - 121 unit/L LAB CHEMISTRY METHOD 07/06/2025 7:24 PM [facility] Total Protein 7.0 6.0 - 8.0 g/dL LAB CHEMISTRY METHOD 07/06/2025 7:24 PM [facility] Albumin 3.8 3.2 - 5.0 g/dL LAB CHEMISTRY METHOD 07/06/2025 7:24 PM [facility] Total Bilirubin 0.6 0.0 - 1.4 mg/dL LAB CHEMISTRY METHOD 07/06/2025 7:24 PM [facility] Blood Venous blood specimen / Unknown Venipuncture / Unknown 07/06/2025 2:02 PM EST 07/06/2025 2:02 PM EST us Omer Beaver MD LAB BLOOD ORDERABLES Final R esult [facility] [address] [place] [address], [place] [phone] from Last 3 Months Insurance MEDICAID - [place] Care Teams Windows Systems Engineer Relationship Specialty Start Date End Date [facility] [address] [place] [phone] PCP - General 12/18/23
--- OUTSIDE RECORDS SUMMARY | 2025-07-12 16:59 | XMS_ITS | Encounter Summary ---
Author Organization [employer] Address [address] [facility] [address] [place] [address] Care Team Providers Care Transportation Mechanic Name Role Phone [facility] Primary Care Provider [phone] Encounter Details Date Type Department Care Team ([facility] st Contact Info) Description 04/19/2025 Telephone [facility] [address] [place], [place] [phone] [facility] [address] [place], [place] [phone] Social History Tobacco Use Types Packs/Day Years [...] 09/29/2025 11:30 AM EST Clinical Support [facility] [address] [place] [address] Frida Knapp RN documented as of this encounter Visit Diagnoses Not on filedocumented in this encounter Additional Health Concerns Assessment Noted Time PHQ-9 Depression Total Score: 13 024 11:27 AM EDT documented as of this encounter Care Teams Transportation Mechanic Relationship Specialty Start Date End Date Ginger Perez FNP [address] [place] [address] PCP - General Family Medicine 08/13/22 [facility] Home Care 11/01/22 documented as of this encounter
== END 2025-07-12 14:40 | disposition home or self-care (01) ==
LOC: HO.HHCX 14:39
PROVIDERS: PCP Registered Nurse; Visit Provider Registered Nurse
DX: M54.50 Low back pain, unspecified (principal); M25.561 Pain in right knee; M25.562 Pain in left knee; G89.29 Other chronic pain
CPT/HCPCS: 72110; 73564

== ENCOUNTER → 2025-07-12 14:49 | Outpatient (BNV) | payer MEDICAID, SELFPAY | PROVIDERS: PCP Registered Nurse; Visit Provider Radiology Diagnostic Radiology | DX: M54.59 Other low back pain (principal); R52 Pain, unspecified | CPT/HCPCS: 72110; 73564 ==

== ENCOUNTER 2025-08-04 18:17 | Outpatient (REF) | payer MEDICAID, SELFPAY ==
--- OUTSIDE RECORDS SUMMARY | 2025-08-04 10:30 | XMS_ITS | Encounter Summary ---
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 Hilda Mcmahan does report adherence to Clonazepam (Klonopin) 1 mg, take 1 tablet every 8hours PRN, last refilled 07/19/2025. The patient last changed Butrans patches (Buprenorphine) on: 07/28/25 Medication is: 0% effective at alleviating pain. The patient last took Clonazepam (Klonopin) on: 08/04/2025 Medication effective: Yes Sleep habits: ok Therapist: Yes PCP added Butrans for pain relief as of 07/12/25. Pts medications are managed by [facility]. All counts today provided by [facility] nurse Molly. [facility]NA nurse reports that pt has been saying the Butrans patch has not helped her at all. Pt states she hasn't slept in 3 days d/t ongoing pain and was weepy this visit. Butrans patch visualized, right lower back, has 3 band aids across the edges to help it stay o n. OBJECTIVE: FRUIT AND VEGETABLE FACTORY WORKER checked: 08/04/2025 Patch count completed for Butrans patches (Buprenorphine) , count reported today as 1 , anticipatedcount should be 1, this is as expected. Pill count completed for Clonazepam (Klonopin), count reported today as 40 , anticipated count should be 35, this is as expected. 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 Current Medications[1] Smoking status: Denies ETOH use: Denies Illicit substances: Denies Marijuana use: Yes, gummies, Marijuana card: No , Marijuana Acquired from: Dispensary Lab Results Component Value Date POCTHC Positive (A) 08/04/2025 POCCOCAINEUR Negative 08/04/2025 POCOPIATEUR Negative 08/04/2025 DOAUR Negative 08/04/2025 POCAMPHETAMI Negative 08/04/2025 POCBENZODIUR Positive (A) 08/04/2025 POCBARBSCRN Negative 08/04/2025 POCMETHADOUR Negative 08/04/2025 POCBUPSCRN Negative 08/04/2025 POCTCAUR Negative 08/04/2025 POCMDMAUR Negative 08/04/2025 POCOXYCODONE Negative 08/04/2025 POCPHENCYCUR Negative 08/04/2025 PROPOXUR Negative 08/04/2025 FENTANYLURIN Negative 08/04/2025 Reviewed UTOX results. Explained I would send urine out for BUP confirmation. ASSESSMENT: Encounter Diagnoses Name Primary? Long-term current use of opiate analgesic Yes Long-term current use of benzodiazepine PLAN: Information on pain group given: Previously discussed Information on acupuncture given: Previously discussed Narcan education provided: Previously discussed Narcan prescription: active Will update PCP about pt c/o ineffective pain relief and UTOX results from today. Hilda Cardona Mcmahan will continue taking medication as prescribed and follow up at the next [facility] visit or sooner if needed. Hilda Mcmahan has verbalized understanding of care plan. Future Appointments Date Time Provider Department Center 08/18/2025 10:00 AM Frida Knapp RN [facility] 09/01/2025 11:30 AM Frida Knapp RN [facility] 09/15/2025 2:00 PM Frida Knapp RN [facility] 09/29/2025 11:30 AM Frida Knapp RN [facility] Frida Knapp RN [1] Current Outpatient Medications: buprenorphine (Butrans) 5 MCG/HR, Place 1 patch on the skin 1 (one) time per week for 28 days., Disp: 4 patch, Rfl: 0 clonazePAM (KlonoPIN) 1 MG tablet, TAKE 1 TABLET BY MOUTH THREE TIMES DAILY FOR 28 DAYS, Disp: 84 tablet, Rfl: 0 acetaminophen (Tylenol) [...] each, Rfl: 0 Blood Glucose Monitoring Suppl [facility], , Disp: , Rfl: Blood Pressure kit, Use as directed, Disp: 1 kit, Rfl: 0 cholecalciferol VITAMIN D (Vitamin D-3) 50 MCG (1999 UT) tablet, TAKE 1 TABLET BY MOUTH EVERY MORNING, Disp: 90 tablet, Rfl: 1 Continuous Glucose Supervisor Plate Pasting (Dexcom G7 Supervisor Plate Pasting) device, use as directed, Disp: , Rfl: Continuous Glucose Sensor (Dexcom G7 Sensor) [facility], USE DIRECTED. CHANGE EVERY 10 DAYS., Disp: , Rfl: dextran 70-hypromellose (artificial tears) 0.1-0.3 % ophthalmic solution, Administer 1 drop into both eyes 4 times daily., Disp: 15 mL, Rfl: 11 gabapentin (Neurontin) 300 MG capsule, Take 1 [...] naloxone (Narcan) 4 mg/0.1 mL nasal spray, FOR SUSPECTED OPIOID OVERDOSE. SPRAY 0.1mL IN ONE NOSTRIL. REPEAT IN ALTERNATE NOSTRIL 2-3 MINUTES IF NEEDED. SEEK MEDICAL ATTENTION IMMEDIATELY EVEN IF PATIENT RESPONDS., Disp: 2 each, Rfl: 3 Nutritional Supplements [...] TIMES DAILY, Disp: 100 each, Rfl: 11 Vraylar 1.5 MG capsule, take 1 capsule by mouth every day in the morning, Disp: , Rfl: zinc gluconate 50 MG tablet, Take 50 mg by mouth Once per day., Disp: , Rfl: Current Facility-Administered Medications: lidocaine (Xylocaine) 2 % injection 40 mg, 2 mL, Intradermal, Once, [facility] documented in this encounter Plan of Treatment Upcoming Encounters Date Type Department Care Team (Late st Contact Info) Description 08/18/2025 10:00 AM EST Telemedicine [address] [address] Frida Knapp RN 09/01/2025 11:30 AM EST Clinical Support [address] [address] Frida Knapp RN 09/15/2025 2:00 PM EST Telemedicine [facility] [address] [place] [address] Frida Knapp RN 09/29/2025 11:30 AM EST Clinical Support [facility] [address] [place] [address] Frida Knapp, RN Scheduled Orders Name Type Priority Associated Diagnoses Orde r Schedule Drug Toxicology Monitoring Buprenorphine, with Confirmation, Urine Lab Routine Long-term current use of opiate analgesic Long-term current use of benzodiazepine Ordered: 08/04/2025 documented as of this encounter Goals Goal Patient Goal Type Associated Problems Recent Progress Patient-Stated? Author Help patients manage their type 2 diabetes Care Plan Help patients manage their type 2 diabetes No Ginger Perez SUPERVISOR TOWER Weekly blood pressure task Care Plan Weekly blood pressure task No Ginger Perez, SUPERVISOR TOWER Help patients manage their type 2 diabetes Care Plan Help patients manage their type 2 diabetes No Ana, Ginger, SUPERVISOR TOWER Patient has chronic kidney disease Care Plan Patient has chronic kidney disease No Ana Ginger, SUPERVISOR TOWER Weekly blood pressure task Care Plan Weekly blood pressure task No [place], Ginger, SUPERVISOR TOWER Patient has chronic kidney disease Care Plan Patient has chronic kidney disease No Ana, Ginger, SUPERVISOR TOWER documented as of this encounter Procedures Procedure Name Priority Date/Time Associated Diagnosis Comments POCT BLANKA-14 URINE DRUG SCREEN Routine 08/04/2025 11:00 AM EST Long-term current use of opiate analgesic Long-term current use of benzodiazepine documented in this encounter Results * (ABNORMAL) POCT BLANKA-14 Urine Drug Screen (08/04/2025 11:00 AM EST) THC Positive(A) Negative Cocaine Screen, Urine Negative Negative Opiate Screen, Urine Negative Negative Methamphetamine Screen Urine Negative Negative Amphetamine Screen, Urine Negative Negative Benzodiazepines Screen, Urine Positive(A) Negative Barbiturate Screen, Urine Negative Negative Methadone Screen, Urine Negative Negative Buprenophine Screen, Urine Negative Negative Comment:SCREEN PRINTING STENCIL PREPARER pt on Butrans TCA, Urine Negative Negative MDMA Urine Negative Negative ng/mL Oxycodone Screen, Urine Negative Negative Phencyclidine (PCP), Urine Negative Negative Propoxyphene, Urine Negative Negative Fentanyl, Urine Negative Negative Urine Urine specimen obtained by clean catch procedure / Unknown 08/04/2025 11:00 AM EST Frida Burleson RN - 08/04/2025 11:00 AM EST UTOX cup Lot#[id number] Exp. 08/02/26 Internal Pass Control [facility] POINT OF CARE TEST ENTER/EDIT ORDERABLES Final Result documented in this encounter Visit Diagnoses Diagnosis Long-term current use of opiate analgesic- Primary Encounter for long-term (current) use of other medications Long-term current use of benzodiazepine documented in this encounter Additional Health Concerns Active Problems Noted Date Diagnosed Date Help patients manage their type 2 diabetes 07/14 Weekly blood pressure task 07/14/2025 Help patients manage their type 2 diabetes 07/14 Patient has chronic kidney disease 07/14/2025 Weekly blood pressure task 07/14/2025 Patient has chronic kidney disease 07/14/2025 Assessment Noted Time PHQ-9 Depression Total Score: 13 024 11:27 AM EDT documented as of this encounter Care Teams Boiler Control Technician Relationship Specialty Start Date End Date [facility] [address] [place] [address] PCP - General Family Medicine 08/13/22 [facility] Home Care 11/01/22 documented as of this encounter
--- OUTSIDE RECORDS SUMMARY | 2025-08-04 19:10 | XMS_ITS | Encounter Summary ---
Author Organization [employer] Address [address] [facility] [address] [place] [address] Care Team Providers Care General House Worker Name Role Phone [facility] Primary Care Provider [phone] Reason for Visit * Reason Comments Med Refill Encounter Details Date Type Department Care Team ([facility] st Contact Info) Description 05/12/2025 Refill [facility] [address] [place], [place] [phone] [facility] [address] [place] [address] Social History Tobacco Use Types Packs/Day Years [...] Info) Description 08/18/2025 10:00 AM EST Telemedicine [facility] [address] [place] [address] Frida Knapp, RN 09/01/2025 11:30 AM EST Clinical Support [address] [address] Frida Knapp, RN 09/15/2025 2:00 PM EST Telemedicine [facility] [address] [place] [address] Frida Knapp, RN 09/29/2025 11:30 AM EST Clinical Support [address] [address] Frida Knapp, RN documented as of this encounter Visit Diagnoses Not on filedocumented in this encounter Additional Health Concerns Assessment Noted Time PHQ-9 Depression Total Score: 13 024 11:27 AM EDT documented as of this encounter Care Teams General House Worker Relationship Specialty Start Date End Date Ginger Perez FNP [address] [place] [address] PCP - General Family Medicine 08/13/22 [facility] Home Care 11/01/22 documented as of this encounter
--- OUTSIDE RECORDS SUMMARY | 2025-08-04 19:10 | XMS_ITS | Encounter Summary ---
Author Organization [employer] Address [address] [facility] [address] [place] [address] Care Team Providers Care Stamper Blocker Name Role Phone [facility] Primary Care Provider [phone] Reason for Visit * Reason Comments Med Refill Encounter Details Date Type Department Care Team ([facility] st Contact Info) Description 06/25/2023 Refill [facility] [address] [place], [place] [phone] [facility] [address] [place] [address] Muscle spasm Social History Tobacco Use Types [...] Info) Description 08/18/2025 10:00 AM EST Telemedicine [facility] [place] [id number] Frida Knapp, OZZY 09/01/2025 11:30 AM EST Clinical Support [facility] [place] [id number] Frida Knapp, OZZY 09/15/2025 2:00 PM EST Telemedicine [facility] [place] [id number] Frida Knapp, OZZY 09/29/2025 11:30 AM EST Clinical Support [facility] [place] [id number] Frida Knapp, RN documented as of this encounter Visit Diagnoses Diagnosis Muscle spasm Spasm of muscle documented in this encounter Additional Health Concerns Assessment Noted Time PHQ-9 Depression Total Score: 16 023 9:09 AM EDT documented as of this encounter Care Teams Stamper Blocker Relationship Specialty Start Date End Date Ginger Perez [place] [id number] PCP - General Family Medicine 08/13/22 [facility] Home Care 11/01/22 documented as of this encounter
--- OUTSIDE RECORDS SUMMARY | 2025-08-04 19:10 | XMS_ITS | Encounter Summary ---
Author Organization Located Within [facility] Address [address] [facility] [address] [place] [address] Phone Care Team Providers Care Bridge Welder Name Role Phone Guille Valentine NP Primary Care Provider [phone] Reason for Referral * Consultation (Elective) - Closed Specialty Diagnoses / Procedures Referred By Contjaden bingham Referred To Contact Neurology Diagnoses Tremor System, Provider Not In, [facility] [address] [address] Phone: tel: Referral ID Status Reason Start Date Expiration Date Visits Re quested Visits Authorized [id number] Closed 08/11/2020 08/11/2021 1 1 Encounter Details Date Type Department Care Team (Late st Contact Info) Description 08/11/2020 Transcribe Orders [facility] Department of Neurology [address] [place] [address], [address] Floor, [address] [place] [address] System, Provider Not In, [place] [address] Tremor (Primary Dx) Social History Tobacco Use [...] Associated Diagnoses Order Schedule Ambulatory referral to [facility] Neurology Outpatient Referral Routine Tremor Ordered: 08/11/2020 documented as of this encounter Visit Diagnoses Diagnosis Tremor- Primary Abnormal involuntary movements documented in this encounter Care Teams Bridge Welder Relationship Specialty Start Date End Date Guille Valentine NP [address] [place] [address] PCP - General Family Medicine 07/03/19 documented as of this encounter Additional Source Comments The information contained in this document represents components of the legal health record. It is not the complete legal health record.[facility]
--- OUTSIDE RECORDS SUMMARY | 2025-08-04 19:10 | XMS_ITS | Encounter Summary ---
Demographics Address [address] [place] [address] Mobile Phone Work Phone Home Phone Email Address Preferred Language en Marital Status Single Catholic Affiliation Unknown Race Other Race Ethnic Group Unknown Author Organization [employer] Address [address] [facility] [address] [place] [address] Care Team Providers Care Client Advisor Name Role Phone Ginger Perez [facility] Primary Care Provider [phone] Encounter Details Date Type Department Care Team (Latest Contact Info) Description 08/04/2025 Travel Social History Tobacco Use Types Packs/Day [...] Info) Description 08/18/2025 10:00 AM EST Telemedicine [address] [address] Frida Knapp, OZZY 09/01/2025 11:30 AM EST Clinical Support [address] [address] Frida Knapp, RN 09/15/2025 2:00 PM EST Telemedicine [address] [address] Frida Knapp, OZZY 09/29/2025 11:30 AM EST Clinical Support [address] [address] Frida Knapp, RN documented as of this encounter Goals Goal Patient Goal Type Associated Problems Recent Progress Patient-Stated? Author Help patients manage their type 2 diabetes Care Plan Help patients manage their type 2 diabetes No Ginger Perez FNP Weekly blood pressure task Care Plan Weekly blood pressure task No Ginger Perez FNP Help patients manage their type 2 diabetes Care Plan Help patients manage their type 2 diabetes No Ginger Perez FNP Patient has chronic kidney disease Care Plan Patient has chronic kidney disease No Ginger Perez FNP Weekly blood pressure task Care Plan Weekly blood pressure task No Ginger Perez FNP Patient has chronic kidney disease Care Plan Patient has chronic kidney disease No Ginger Perez FNP documented as of this encounter Visit Diagnoses Not on filedocumented in this encounter Additional Health Concerns Active [...] documented as of this encounter Care Teams Client Advisor Relationship Specialty Start Date End Date Ginger Perez FNP [address] [place] [address] PCP - General Family Medicine 08/13/22 [facility] Home Care 11/01/22 documented as of this encounter
--- OUTSIDE RECORDS SUMMARY | 2025-08-04 19:10 | XMS_ITS | Clinical Summary ---
Author Organization [facility] Address [address] [place] [address] Phone Care Team Providers Care Home Service Advisor Name Role Phone Guille Valentine NP Primary Care Provider [phone] Social History Tobacco Use Types Packs/Day Years Used Date Smoking Tobacco: Never Assessed Comments Unknown Sex and Gender Information Value Date Recorded Sex Assigned at Not on file Legal Sex Female 11:43 AM EDT Gender Identity Not on file Sexual Orientation Not on file Plan of Treatment Not on file Medical Devices Not on file Insurance [facility] C3 ACO [facility] C3 ACO C3 ACO C3 ACO C3 ACO C3 ACO C3 ACO C3 ACO [facility] C3 ACO Care Teams Home Service Advisor Relationship Specialty Start Date End Date Guille Valentine NP [address] [place] [phone] PCP - General Family Medicine 07/03/19 Additional Source Comments The information contained in this document represents components of the legal health record. It is not the complete legal health record.[facility]
--- OUTSIDE RECORDS SUMMARY | 2025-08-04 19:10 | XMS_ITS | Encounter Summary ---
Author Organization [employer] Address [address] [facility] [address] [place] [address] Care Team Providers Care Payroll And Benefits Manager Name Role Phone [facility] Primary Care Provider [phone] Reason for Visit * Reason Comments Med Refill Encounter Details Date Type Department Care Team (Late st Contact Info) Description 02/04/2025 Refill [facility] [address] [place], [place] [phone] [facility] [address] [place] [address] Type 2 diabetes mellitus with chronic kidney [...] Info) Description 08/18/2025 10:00 AM EST Telemedicine [address] [address] Frida Knapp, RN 09/01/2025 11:30 AM EST Clinical Support [address] [address] Frida Knapp, RN 09/15/2025 2:00 PM EST Telemedicine [address] [address] Frida Knapp, RN 09/29/2025 11:30 AM EST Clinical Support [address] [address] Frida Knapp, RN documented as of this encounter Visit Diagnoses Diagnosis Type 2 diabetes mellitus with chronic kidney disease, with long-term current use of insulin, unspecified CKD stage (HCC) documented in this encounter Additional Health Concerns Assessment Noted Time PHQ-9 Depression Total Score: 13 024 11:27 AM EDT documented as of this encounter Care Teams Payroll And Benefits Manager Relationship Specialty Start Date End Date Ginger Perez FNP [address] [place] [address] PCP - General Family Medicine 08/13/22 [facility] Home Care 11/01/22 documented as of this encounter
--- OUTSIDE RECORDS SUMMARY | 2025-08-04 19:10 | XMS_ITS | Encounter Summary ---
Author Organization [employer] Address [address] [facility] [address] [place] [address] Care Team Providers Care Apprentice Painter Brush Name Role Phone Ginger Perez [facility] Primary Care Provider [phone] Reason for Visit * Reason Onset Date Comments JHONATHAN Yin 08/04/2025 Encounter Details Date Type Department Care Team ([facility] Contact Info) Description 08/04/2025 Telephone [facility] [address] [place] [address] Frida Knapp RN CST - Butrans Social History Tobacco Use Types Packs/Day Years [...] Telephone Encounter - Frida Knapp RN - 08/04/2025 12:30 PM EST Per our conversation, will increase Butrans to 10mcg at next refill. 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 Pt states she hasn't slept in 3 days d/t ongoing pain and was weepy this visit. Currently rates his pain a 10 and stated Butrans has been 0% effective for pain relief. Butrans patch visualized, right lower back, has 3 band aids across the edges to help it stay on. UTOX was Neg BUP, sent out for confirmation. When pt asked if he had an appointment scheduled with [facility], he stated he didn't know. Awaiting response from [facility] nurse to clarify if pt is scheduled or not. documented in this encounter Plan of Treatment Upcoming Encounters Date Type Department Care Team (Late st Contact Info) Description 08/18/2025 10:00 AM EST Telemedicine [facility] [place] [address] Frida Knapp, RN 09/01/2025 11:30 AM EST Clinical Support [facility] [place] [address] Frida Knapp, RN 09/15/2025 2:00 PM EST Telemedicine [facility] [place] [address] Frida Knapp, RN 09/29/2025 11:30 AM EST Clinical Support [facility] [place] [address] Frida Knapp, RN documented as of this [...] Noted Time PHQ-9 Depression Total Score: 13 0715/2 024 11:27 AM EDT documented as of this encounter Care Teams Apprentice Painter Brush Relationship Specialty Start Date End Date Ginger [place] [address] PCP - General Family Medicine 08/13/22 [facility] Home Care 11/01/22 documented as of this encounter
--- OUTSIDE RECORDS SUMMARY | 2025-08-04 19:10 | XMS_ITS | Encounter Summary ---
Author Organization [employer] Address 75 [facility] 7t [place] [address] Care Team Providers Care Document Imaging Manager Name Role Phone [facility] Primary Care Provider [phone] Reason for Visit * Reason Comments Med Refill Encounter Details Date Type Department Care Team ([facility] st Contact Info) Description 05/11/2025 Refill [facility] 230 [place], [place] [phone] [facility] 230 [place] [address] Mixed anxiety and depressive disorder Social History [...] Info) Description 08/18/2025 10:00 AM EST Telemedicine [facility] [address] [place] [address] Frida Knapp, RN 09/01/2025 11:30 AM EST Clinical Support [address] [address] Frida Knapp, RN 09/15/2025 2:00 PM EST Telemedicine [facility] [address] [place] [address] Frida Knapp, RN 09/29/2025 11:30 AM EST Clinical Support [address] [address] Frida Knapp, RN documented as of this encounter Visit Diagnoses Diagnosis Mixed anxiety and depressive disorder Dysthymic disorder documented in this encounter Additional Health Concerns Assessment Noted Time PHQ-9 Depression Total Score: 13 024 11:27 AM EDT documented as of this encounter Care Teams Document Imaging Manager Relationship Specialty Start Date End Date Ginger Perez FNP [address] [place] [address] PCP - General Family Medicine 08/13/22 [facility] [place]22 documented as of this encounter
--- OUTSIDE RECORDS SUMMARY | 2025-08-04 19:11 | XMS_ITS | Encounter Summary ---
Author Organization [employer] Address 75 [facility] 7[place] [address] Care Team Providers Care Drum Filler Name Role Phone [facility] Primary Care Provider [phone] Reason for Visit * Reason Comments Med Refill Encounter Details Date Type Department Care Team ([facility] st Contact Info) Description 06/16/2025 Refill [facility] [address] [place], [place] [phone] [facility] [address] [place] [address] Other chronic pain Social History Tobacco Use [...] Info) Description 08/18/2025 10:00 AM EST Telemedicine [facility] [address] [place] [address] Frida Knapp, RN 09/01/2025 11:30 AM EST Clinical Support [address] [address] Frida Knapp, RN 09/15/2025 2:00 PM EST Telemedicine [facility] [address] [place] [address] Frida Knapp, RN 09/29/2025 11:30 AM EST Clinical Support [address] [address] Frida Knapp, RN documented as of this encounter Visit Diagnoses Diagnosis Other chronic pain documented in this encounter Additional Health Concerns Assessment Noted Time PHQ-9 Depression Total Score: 13 024 11:27 AM EDT documented as of this encounter Care Teams Drum Filler Relationship Specialty Start Date End Date Ginger Perez FNP 230 [place] [address] PCP - General Family Medicine 08/13/22 [facility] [place]22 documented as of this encounter
--- OUTSIDE RECORDS SUMMARY | 2025-08-04 19:11 | XMS_ITS | Encounter Summary ---
Author Organization [employer] Address [address] [place] [address] 7t [place] [address] Care Team Providers Care Program Management Manager Name Role Phone Ginger Perez [facility] Primary Care Provider [phone] Encounter Details Date Type Department Care Team ([facility] st Contact Info) Description 02/21/2023 Telephone [facility] 230 [place], [place] [phone] [facility] 230 [place], [place] [phone] Social History Tobacco Use Types Packs/Day Years [...] - 02/25/2023 9:57 AM EDT T/C to [phone] for below message, No answer. LVM to call back on [phone]. As per last message , PCP referred pt. For Physical therapy evaluation. * Telephone Encounter - Mirta Vladimir - 02/21/2023 3:11 PM EDT Tc from [facility] requesting a script for Albuterol for nebulize machine. Tool Chaser check on med list but nothing. Also [facility] requesting a referral for Occupational Therapy and Physical Therapy in home. To contact [facility] at [phone] Perez documented in this encounter Plan of Treatment Upcoming Encounters Date Type Department Care Team (Late st Contact Info) Description 08/18/2025 10:00 AM EST Telemedicine [address] [address] Frida Knapp, OZZY 09/01/2025 11:30 AM EST Clinical Support [address] [address] Frida Knapp, OZZY 09/15/2025 2:00 PM EST Telemedicine [address] [address] Frida Knapp, OZZY 09/29/2025 11:30 AM EST Clinical Support [address] [address] Frida Knapp, RN documented as of this encounter Visit Diagnoses Not on filedocumented in this encounter Additional Health Concerns Assessment Noted Time PHQ-9 Depression Total Score: 9 01/25/20 23 1:11 PM EDT documented as of this encounter Care Teams Program Management Manager Relationship Specialty Start Date End Date Ginger Perez FNP [address] [place] [address] PCP - General Family Medicine 08/13/22 [facility] [place] 11/01/22 documented as of this encounter
--- OUTSIDE RECORDS SUMMARY | 2025-08-04 19:11 | XMS_ITS | Encounter Summary ---
Author Organization [employer] Address 75 [facility] 7[address] [place] [address] Care Team Providers Care Retail Pricing Coordinator Name Role Phone [facility] Primary Care Provider [phone] Reason for Visit * Reason Onset Date Comments Medication Question 11/12/2024 Med Refill 11/12/2024 Encounter Details Date Type Department Care Team ([facility] st Contact Info) Description 11/12/2024 Telephone [facility] 230 [place] [address] [facility] 230 [place] [address] Medication Question; Med Refill Social History Tobacco [...] from pt regarding Lidocaid Patch and Clonazepam. Microarray Specialist advised pt med refill request was sent yesterday. documented in this encounter Plan of Treatment Upcoming Encounters Date Type Department Care Team (Late st Contact Info) Description 08/18/2025 10:00 AM EST Telemedicine [facility] Manuela [facility], [place] [address] Frida Knapp, OZZY 09/01/2025 11:30 AM EST Clinical Support [facility] [address] Frida Knapp, RN 09/15/2025 2:00 PM EST Telemedicine [facility] [address] Frida Knapp, RN 09/29/2025 11:30 AM EST Clinical Support [facility] [place] [address] Frida Knapp, RN documented as of this encounter Visit Diagnoses Not on filedocumented in this encounter Additional Health Concerns Assessment Noted Time PHQ-9 Depression Total Score: 13 024 11:27 AM EDT documented as of this encounter Care Teams Retail Pricing Coordinator Relationship Specialty Start Date End Date EsmondGinger canales FNP [address] [place] [address] PCP - General Family Medicine 08/13/22 [facility] [place] 11/[place]/22 documented as of this encounter
--- OUTSIDE RECORDS SUMMARY | 2025-08-04 19:11 | XMS_ITS | Encounter Summary ---
Demographics Address [address] [facility] [address] [place] [address] Mobile Phone Work Phone Home Phone Email Address Preferred Language en Marital Status Single Yazidi Affiliation Unknown Race Other Race Ethnic Group Unknown Author Organization [email or web address] Address 75 [facility] 7t [place] [address] Care Team Providers Care Patient Services Rep Name Role Phone Ana [facility] Primary Care Provider [phone] Encounter Details Date Type Department Care Team (Late st Contact Info) Description 12/22/2024 Orders Only [facility] 230 [place], [place] [phone] ProviderDalton MD Social History Tobacco Use Types [...] Miscellaneous Notes * Result Encounter Note - Katye Ott CNM - 12/22/2024 11:20 AM EDT Pelvic ultrasound showed the lining of the uterus is thicker than expected. Please let Hilda know I am going to refer to PROFESSIONAL HEALTHCARE REPRESENTATIVE for further evaluation. Thanks! documented in this encounter Plan of Treatment Upcoming Encounters Date Type Department Care Team (Late st Contact Info) Description 08/18/2025 10:00 AM EST Telemedicine [facility] [address] [place] [address] Frida Knapp, RN 09/01/2025 11:30 AM EST Clinical Support [facility] [address] [place] [address] Frida Knapp, RN 09/15/2025 2:00 PM EST Telemedicine [facility] [address] [place] [address] Frida Knapp, RN 09/29/2025 11:30 AM EST Clinical Support [address] [address] Frida Knapp, RN documented as of this [...] documented as of this encounter Care Teams Patient Services Rep Relationship Specialty Start Date End Date Ginger Perez FNP [address] [place] [address] PCP - General Family Medicine 08/13/22 [facility] [place] [facility] 11/01/22 documented as of this encounter
--- OUTSIDE RECORDS SUMMARY | 2025-08-04 19:11 | XMS_ITS | Encounter Summary ---
Author Organization [employer] Address 75 [facility] 7t [place] [address] Care Team Providers Care Pigment Making Supervisor Name Role Phone Ana [facility] Primary Care Provider [phone] Reason for Visit * Reason Comments Med Refill Encounter Details Date Type Department Care Team ([facility] st Contact Info) Description 05/11/2024 Refill [facility] 230 [place] [address] Roma Man MD 230 [place] [address] Onychomycosis Social History Tobacco Use Types Packs/Day [...] Info) Description 08/18/2025 10:00 AM EST Telemedicine [address] [address] Frida Knapp, OZZY 09/01/2025 11:30 AM EST Clinical Support [address] [address] Frida Knapp, OZZY 09/15/2025 2:00 PM EST Telemedicine [address] [address] Frida Knapp, OZZY 09/29/2025 11:30 AM EST Clinical Support [address] [address] Frida Knapp, RN documented as of this encounter Visit Diagnoses Diagnosis Onychomycosis Dermatophytosis of nail documented in this encounter Additional Health Concerns Assessment Noted Time PHQ-9 Depression Total Score: 13 024 11:27 AM EDT documented as of this encounter Care Teams Pigment Making Supervisor Relationship Specialty Start Date End Date Ginger Perez FNP [address] [place] [address] PCP - General Family Medicine 08/13/22 [facility] [place] 11/[place]/22 documented as of this encounter
--- OUTSIDE RECORDS SUMMARY | 2025-08-04 19:11 | XMS_ITS | Encounter Summary ---
Author Organization [employer] Address [address] [facility] 7t [place] [address] Care Team Providers Care Pipe Processor Name Role Phone Ana [facility] Primary Care Provider [phone] Encounter Details Date Type Department Care Team ([facility] st Contact Info) Description 12/30/2024 Orders Only [facility]S [address] [place], [place] [phone] Mary Gu Social History Tobacco Use Types [...] Info) Description 08/18/2025 10:00 AM EST Telemedicine [address] [address] Frida Knapp, OZZY 09/01/2025 11:30 AM EST Clinical Support [address] [address] Frida Knapp, OZZY 09/15/2025 2:00 PM EST Telemedicine [address] [address] Frida Knapp, OZZY 09/29/2025 11:30 AM EST Clinical Support [address] [address] Frida Knapp, RN documented as of this [...] as of this encounter Care Teams Pipe Processor Relationship Specialty Start Date End Date Ana GERALD Miles 230 [place] [address] PCP - General Family Medicine 08/13/22 [facility] [place] 11/[place]/22 documented as of this encounter
--- OUTSIDE RECORDS SUMMARY | 2025-08-04 19:11 | XMS_ITS | Encounter Summary ---
Author Organization [employer] Address 75 [facility] 7t [place] [address] Care Team Providers Care Software Systems Analyst Name Role Phone [facility] Primary Care Provider [phone] Reason for Visit * Reason Comments Med Refill Encounter Details Date Type Department Care Team ([facility] st Contact Info) Description 06/14/2025 Refill [facility] PEDS [address] [place], [place] [phone] [facility] [address] [place] [address] Mixed anxiety and depressive disorder Social History [...] Info) Description 08/18/2025 10:00 AM EST Telemedicine [facility] MEDICINE [address] [place] [address] Frida Knapp, RN 09/01/2025 11:30 AM EST Clinical Support [address] [address] Frida Knapp, RN 09/15/2025 2:00 PM EST Telemedicine [facility] [address] [place] [address] Frida Knapp, RN 09/29/2025 11:30 AM EST Clinical Support [address] [address] Frida Knapp, RN documented as of this encounter Visit Diagnoses Diagnosis Mixed anxiety and depressive disorder Dysthymic disorder documented in this encounter Additional Health Concerns Assessment Noted Time PHQ-9 Depression Total Score: 13 024 11:27 AM EDT documented as of this encounter Care Teams Software Systems Analyst Relationship Specialty Start Date End Date Ginger Perez FNP [address] [place] [address] PCP - General Family Medicine 08/13/22 [facility] [place] 11/01/22 documented as of this encounter
--- OUTSIDE RECORDS SUMMARY | 2025-08-04 19:11 | XMS_ITS | Encounter Summary ---
Author Organization [employer] Address 75 [facility] 7[address] [place] [address] Care Team Providers Care Chief Ophthalmic Technician Name Role Phone [facility] Primary Care Provider Reason for Visit * Reason Comments Med Refill Encounter Details Date Type Department Care Team ([facility] st Contact Info) Description 05/22/2024 Refill [facility] 230 [place], [place] [phone] [facility] 230 [place] [address] Low back pain at multiple sites Social [...] Info) Description 08/18/2025 10:00 AM EST Telemedicine [address] [address] Frida Knapp, RN 09/01/2025 11:30 AM EST Clinical Support [address] [address] Frida Knapp, RN 09/15/2025 2:00 PM EST Telemedicine [address] [address] Frida Knapp, RN 09/29/2025 11:30 AM EST Clinical Support [address] [address] Frida Knapp, RN documented as of this encounter Visit Diagnoses Diagnosis Low back pain at multiple sites documented in this encounter Additional Health Concerns Assessment Noted Time PHQ-9 Depression Total Score: 13 024 11:27 AM EDT documented as of this encounter Care Teams Chief Ophthalmic Technician Relationship Specialty Start Date End Date Ginger Perez FNP [address] [place] [address] PCP - General Family Medicine 08/13/22 [facility] [place] Care 11/01/22 documented as of this encounter
--- OUTSIDE RECORDS SUMMARY | 2025-08-04 19:11 | XMS_ITS | Encounter Summary ---
Author Organization [employer] Address [address] [facility] 7t [place] [address] Care Team Providers Care Deputy Register Of Deeds Name Role Phone Ana [facility] Primary Care Provider [phone] Reason for Visit * Reason Comments Med Refill Encounter Details Date Type Department Care Team ([facility] st Contact Info) Description 05/22/2024 Refill [facility] 230 [place] [address] Roma Man MD 230 [place] [address] Onychomycosis Social History Tobacco Use Types Packs/Day [...] Info) Description 08/18/2025 10:00 AM EST Telemedicine [address] [address] Frida Knapp, OZZY 09/01/2025 11:30 AM EST Clinical Support [address] [address] Frida Knapp, OZZY 09/15/2025 2:00 PM EST Telemedicine [address] [address] Frida Knapp, OZZY 09/29/2025 11:30 AM EST Clinical Support [address] [address] Frida Knapp, RN documented as of this encounter Visit Diagnoses Diagnosis Onychomycosis Dermatophytosis of nail documented in this encounter Additional Health Concerns Assessment Noted Time PHQ-9 Depression Total Score: 13 024 11:27 AM EDT documented as of this encounter Care Teams Deputy Register Of Deeds Relationship Specialty Start Date End Date Ginger Perez FNP [address] [place] [address] PCP - General Family Medicine 08/13/22 [facility] [place] [facility] 11/01/22 documented as of this encounter
--- OUTSIDE RECORDS SUMMARY | 2025-08-04 19:11 | XMS_ITS | Encounter Summary ---
Author Organization [employer] Address 75 [facility] 7t [place] [address] Care Team Providers Care Composer Teaching Artist Name Role Phone Campbell [facility] Primary Care Provider [phone] Reason for Visit * Reason Onset Date Comments Referral 07/19/2023 Encounter Details Date Type Department Care Team ([facility] st Contact Info) Description 07/19/2023 Telephone [facility] 230 [place] [address] Campbell [facility] 230 [place] [address] Referral Social History Tobacco Use Types Packs/Day [...] no availability. Any questions, contact sarah at [phone] documented in this encounter Plan of Treatment Upcoming Encounters Date Type Department Care Team (Late st Contact Info) Description 08/18/2025 10:00 AM EST Telemedicine [address] [address] Frida Knapp, RN 09/01/2025 11:30 AM EST Clinical Support [address] [address] Frida Knapp, RN 09/15/2025 2:00 PM EST Telemedicine [facility]INE [address] [place] [address] Frida Knapp, RN 09/29/2025 11:30 AM EST Clinical Support [address] [address] Frida Knapp, RN documented as of this encounter Visit Diagnoses Not on filedocumented in this encounter Additional Health Concerns Assessment Noted Time PHQ-9 Depression Total Score: 16 023 9:09 AM EDT documented as of this encounter Care Teams Composer Teaching Artist Relationship Specialty Start Date End Date Ginger Perez FNP 230 [place] [address] PCP - General Family Medicine 08/13/22 [facility] [place]22 documented as of this encounter
--- OUTSIDE RECORDS SUMMARY | 2025-08-04 19:11 | XMS_ITS | Clinical Summary ---
Author Organization [employer] Address [address] [place] [address] Care Team Providers Care Production Superintendent Hydro Name Role Phone Ginger Perez INFORMATICS MANAGER Primary Care Provider [phone] Allergies Active Allergy Reactions Criticality Noted Date [...] 24 HOURS 90 tablet 11 024 Active oxyCODONE (Roxicodone) 5 MG immediate release tabletIndicatio ns:Low back pain at multiple sites Take 1 tablet (5 mg) by mouth every 6 (six) hours if needed for severe pain. 12 tablet 024 Active olmesartan (BENIcar) 5 MG tabletIndicatio [...] HOURS NEEDED FOR WHEEZING 90 mL 11 07/19/20 25 10:41 AM EST 025 Active Tirzepatide (Mounjaro) 5 MG/0.5ML solution auto-injectorIn dications:Type 2 diabetes mellitus with chronic kidney disease, with long-term current use of insulin, unspecified CKD stage ([facility]) Inject 5 mg under the skin [...] For 2 weeks 15 g 025 Active acetaminophen (Tylenol) 500 MG tablet Take 1,000 mg by mouth every 8 (eight) hours. Active atorvastatin (Lipitor) 20 MG tablet Take 20 mg by mouth at bedtime. Active Continuous Glucose Laboratory Equipment Cleaner (Dexcom G7 Laboratory Equipment Cleaner) device use as directed 08/22/2 025 Active Continuous Glucose Sensor (Dexcom G7 Sensor) [facility] USE DIRECTED. CHANGE EVERY 10 DAYS. Active [...] DAY FOR 3 DAYS 510 g 2 07/19/20 25 10:41 AM EST Active gabapentin (Neurontin) 300 MG capsuleIndicati ons:Mixed [...] mouth every day in the morning Active clonazePAM (KlonoPIN) 1 MG tabletIndicatio ns:Mixed anxiety and depressive disorder TAKE 1 TABLET BY MOUTH THREE TIMES DAILY FOR 28 DAYS 84 tablet 025 2024 Active albuterol (Ventolin HFA) 108 (90 Base) MCG/ACT inhaler INHALE 2 PUFFS BY MOUTH FOUR TIMES DAILY NEEDED 18 g 11 07/19/20 25 10:41 AM EST Active naloxone (Narcan) 4 mg/0.1 mL nasal sprayIndication s:Low back pain at multiple sites FOR SUSPECTED OPIOID OVERDOSE. SPRAY 0.1mL IN ONE NOSTRIL. REPEAT IN ALTERNATE NOSTRIL 2-3 MINUTES IF NEEDED. SEEK MEDICAL ATTENTION IMMEDIATELY EVEN IF PATIENT RESPONDS. 2 each 3 Active buprenorphine (Butrans) 5 MCG/HRIndicatio ns:Chronic bilateral low back pain with sciatica, sciatica laterality unspecified Place 1 patch on the skin 1 (one) time per week for 28 days. 4 patch 07/21/20 25 3:30 PM EST 025 2024 Active lidocaine (Lidoderm) 5 % patchIndication s:Other chronic pain APPLY 1 PATCH TOPICALLY TO SKIN, LEAVE ON FOR 12 HOURS AND OFF FOR 12 HOURS DIRECTED 30 patch 1 Active cholecalciferol VITAMIN D (Vitamin D-3) 50 MCG (1999 UT) tabletIndicatio ns:Chronic pain syndrome TAKE 1 TABLET BY MOUTH EVERY MORNING 90 tablet 1 Active albuterol (Ventolin HFA) 108 (90 Base) MCG/ACT inhaler INHALE 2 PUFFS BY MOUTH FOUR TIMES DAILY NEEDED 18 g 11 024 2024 Discontinued(R eorder (will not trigger notification to Pharmacy)) naloxone (Narcan) 4 mg/0.1 mL nasal sprayIndication s:Low back pain at multiple sites Administer 1 spray (4 mg) into affected nostril(s) if needed for opioid reversal. May repeat every 2-3 minutes if needed, alternating nostrils, until medical assistance becomes available. 2 each 3 025 2024 Discontinued cholecalciferol VITAMIN D (Vitamin D-3) 50 MCG (1999 UT) tabletIndicatio ns:Chronic pain syndrome TAKE 1 TABLET BY MOUTH EVERY MORNING 90 tablet 1 025 2024 Discontinued lidocaine (Lidoderm) 5 % patchIndication s:Other chronic pain APPLY 1 PATCH TOPICALLY TO SKIN, LEAVE ON FOR 12 HOURS AND OFF FOR 12 HOURS DIRECTED 30 patch 1 025 2024 Discontinued clonazePAM (KlonoPIN) 1 MG tabletIndicatio ns:Mixed anxiety and depressive disorder Take 1 tablet (1 mg) by mouth 3 times daily for 28 days. Do not start before June 18, 2025. 84 tablet 025 2024 Discontinued Hospital, Clinic, or Other Facility Administered Medication Ordered Dose Route Frequency Start Date End Date Status lidocaine (Xylocaine) 2 % injection 40 mgIndications:Vulvar lesion,Encounter for incision and drainage procedure 40 mg ID Once 12/03/2023 Ac tive Active Problems Problem Noted Date Diagnosed Date Long-term current use of opiate analgesic 2024 Bilateral primary osteoarthritis of knee 025 Long-term current use of benzodiazepine 03/04/20 25 [...] disorder (CMS/HCC) 09/29/2022 Overview (09/29/2022): followed by [facility] 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 EEG's normal. Per neurology notes, possible dyskenisa s/t hx of antipsychotic medications which patient is no longer taking. Not currently taking any anti- seizure medications. No seizure episodes >2 months. Episodes triggered by emotional stress. Bariatric surgery status 09/29/2022 Overview (09/29/2022): Lap band was removed approx 8 years ago in [facility]; repeat lap band through [facility] without weight loss. Very upset by experience at [facility]. Currently working with [facility] weight mgnmt for removal of lap band. Assessment & Plan (05/03/2023 10:30 AM EDT): Details of current weight mngmt plan through [facility] unclear. Will request notes and follow up as indicated Obstructive sleep apnea 09/29/2022 Overview (06/04/2023): Compliant with BiPAP Followed by [facility] neurology and sleep clinic. Dr. Temple Gender dysphoria in adult 09/29/2022 Overview (09/29/2022): Interested in pursuing top and bottom gender reassignment surgery Not a candidate for hormone therapy Healthcare maintenance 09/29/2022 Overview (02/25/2024): Mammo: 07/2022--Birads 2 Pap: HPV negative 2019, no cytology on record. C-scope: Upcoming colonoscopy [facility] GI BMD: Routine age 63 Chronic bilateral low back pain with sciatica Overview (09/29/2022): all over previously seen by [...] medication management. Any issues or concerns, contact [facility]. All his questions were answered and [...] left alone, encouraged to request increased FIELD REIMBURSEMENT MANAGER hours. Will increase bedtime Gabapentin to 1200 [...] family members and/or 1 of 2 FIELD REIMBURSEMENT MANAGER's always present. Patient was able to contract [...] prescriber. We did not discuss my planned [place] facility today. F/U with me in 1 month. [...] morning Jardiance 25 mg daily Followed by [facility] Aluminizer Has dexcom CGM Metformin stopped due to [...] 2.5mg Continue to follow as scheduled with [facility] DM educator Will task RN's to contact patients pharmacy customer care specialist to ensure that [facility] is aware of med change. Strongly encouraged patient to continue with FIELD REIMBURSEMENT MANAGER/[facility] services due to multiple chronic conditions and patient's difficulty self managing care. Patient verbalizes understanding and agrees to plan Assessment & Plan (05/03/2023 10:15 AM EDT): Continue to work with [facility] DM educator Henny-will [...] or hyperglycemia -Follow up with PCP Epilepsy ([facility]) 04/18/2012 3 Encounters Date Type Department Care Team Description 08/04/2025 10:30 AM EST Clinical Support [facility] [address] [facility] [place] [address] Frida Knapp, RN Long-term current use of opiate analgesic (Primary Dx); Long-term current use of benzodiazepine 08/04/2025 Telephone [facility] [address] [facility] [place] [address] Frida Knapp, RN HHAS - Butrans 08/04/2025 Travel 07/28/2025 Refill [facility] [address] [facility] [facility] [place] [address] Ginger Perez [facility] Chronic pain syndrome 07/26/2025 Telephone [facility] [address] [place] [address] [place] Ginger INFORMATICS MANAGER Prior Authorization (PA: buprenorphine (Butrans) 5 MCG/HR//) 07/21/2025 Refill [facility] MED [facility] PEDS [address] [place], [place] [id number] [place] Ginger [facility] Other chronic pain 07/19/2025 Orders Only [facility] [address] [place] [address] [place] Ginger [facility] Chronic bilateral low back pain with sciatica, sciatica laterality unspecified (Primary Dx) 07/16/2025 Telephone [facility] [address] [facility] [place] [address] Ana Ginger [facility] Care Coordination 07/15/2025 Telephone [facility] [address] [place] [address] Frida Knapp, OZZY Update [facility] regarding Butrans RX; Schedule HHAS f/u visits 07/14/2025 Refill [facility] [address] [place] [address] Ginger Perez [facility] Low back pain at multiple sites 07/14/2025 Refill [facility] [address] [place] [address] [place] [facility] 07/13/2025 Refill [facility] [address] [place] [address] [place] Ginger [facility] Mixed anxiety and depressive disorder 07/12/2025 2:00 PM EST Office Visit [facility] [address] [place] [address] Ginger Perez FNP Type 2 diabetes mellitus with hypoglycemia without coma, with long-term current use of insulin ([facility]) (Primary Dx); Postmenopausal bleeding; Gait instability; Chronic bilateral low back pain with sciatica, sciatica laterality unspecified; Bilateral primary osteoarthritis of knee; Encounter for immunization 07/12/2025 Orders Only [facility] [address] [place] [address] Ginger Perez FNP 07/12/2025 Travel 07/06/2025 11:30 AM EST Office Visit [facility] OPTOMET[facility] [address] [place] [address] Jake, Jaycee, OD Presbyopia (Primary Dx); Dry eyes; Diabetes type 2, no ocular involvement (HCC) 07/06/2025 Travel 07/05/2025 Patient Outreach [facility] [address] [place] [address] Ginger Perez FNP Pre-visit Planning (SDOH screening was completed on 12/07/2024) 06/28/2025 10:30 AM EDT Clinical Support [facility] [address] [place] [address] Frida Knapp RN Long-term current use of benzodiazepine (Primary Dx) 06/28/2025 Travel 06/21/2025 Refill [facility] [address] [place] [address] Ginger Perez FNP Mixed anxiety and depressive disorder 06/16/2025 Refill [facility] [address] [place] [address] Ginger Perez FNP Other chronic pain 06/14/2025 Refill [facility] [address] [place] [address] Ginger Perez FNP Mixed anxiety and depressive disorder 06/11/2025 Refill [facility] [address] [place] [address] Ginger Perez FNP Mixed anxiety and depressive disorder 06/08/2025 10:20 AM EDT Office Visit [facility] OPTOM[facility] [address] [place] [address] Jake, Jaycee, OD Diabetes type 2, no ocular involvement (HCC) (Primary Dx) 06/08/2025 Travel 06/07/2025 Telephone [facility] [address] [place] [address] Frida Knapp RN Error (VOID this visit) 06/07/2025 Telephone [facility] [address] [place] [address] Ginger Perez FNP Appointment Request 06/02/2025 Orders Only GENERIC EXTERNAL DATA DEPARTMENT Provider, Generic External Data 05/31/2025 Telephone [facility] [address] [place] [address] Ginger Perez FNP Durable Medical Equipment 05/26/2025 Refill [facility] [address] [place] [address] Donna Dow DO Constipation, unspecified constipation type 05/21/2025 Telephone [facility] [address] [place] [address] Ginger Perez FNP Med Refill 05/19/2025 Orders Only [facility] External Provider, [facility] 05/18/2025 Travel 05/18/2025 Refill [facility] [address] [place] [address] Ginger Perez FNP Mixed anxiety and depressive disorder 05/17/2025 Refill [facility] [address] [place] [address] Ginger Perez FNP Other chronic pain 05/12/2025 Refill [facility] [address] [place], [place] [phone] Ginger Perez FNP 05/11/2025 Refill [facility] [address] [place] [address] Ginger Perez FNP Mixed anxiety and depressive disorder from Last [...] Info) Description 08/18/2025 10:00 AM EST Telemedicine [facility] [address] [place] [address] Frida Knapp, OZZY 09/01/2025 11:30 AM EST Clinical Support [facility] [address] [place] [address] [place] [address] Frida Knapp, RN 09/15/2025 2:00 PM EST Telemedicine [facility] [address] [place] [address] Frida Knapp, RN 09/29/2025 11:30 AM EST Clinical Support [facility] [address] [place] [address] [place] [address] Frida Knapp, RN Health Maintenance Due Date Last Done Comments CT Colonography 1963 FIT DNA/Cologuard 1963 FIT 1963 FOBT 1965 Sigmoidoscopy 1965 Disability Screening 1963 Diabetes: Foot Exam 1973 Alcohol/Substance Use Screening 1975 Hepatitis A Vaccines (1 of 2 - Risk 2-dose series) 1982 RSV Patients and Patients Aged 60 years or older (1 - Risk 50-74 years 1-dose series) 2013 Zoster Vaccines (2 of 2) 06/07/2023 04/12/2023 Diabetes: Urine Protein Screening 02/01/2024 01/31/2023 Depression Monitoring 09/16/2024 03/16/2024, 024 COVID-19 Vaccine ( season) 2025 Mammogram 08/27/2025 08/27/2024, 07/03, 2022, Additional history exists Lipid Panel 09/14/2025 09/14/2024, 06/03, 09/25/2022, Additional history exists Diabetes: Hemoglobin A1C 09/22/2025 025, 12/16/2024, 05/13/2024, Additional history exists SDOH Screening 12/07/2025 12/07/2024 Tobacco Screening 07/14/2026 07/14/2025 Eye Exam 07/06/2027 07/06/2025, 1112/2024, 07/06/2025, Additional history exists Cervical Cancer Screening 09/08/2029 HPV/Cotest 09/08/2029 09/08/2024, 09/09/2019 Pap Smear 09/08/2029 09/08/2024, 09/09/2019 DTaP/Tdap/Td Vaccines (3 - Td or Tdap) 06/21/2032 06/21/2022, 02/07/2010 Colonoscopy 12/24/2034 12/24/2024, 10/12/2024 Colorectal Cancer Screening 12/24/2034 Hepatitis B Vaccines [...] on patient's age to complete this topic Goals Goal Patient Goal Type Associated Problems Recent Progress Patient-Stated? Author Help patients manage their type 2 diabetes Care Plan Help patients manage their type 2 diabetes No Ginger Perez, INFORMATICS MANAGER Weekly blood pressure task Care Plan Weekly blood pressure task No Ginger Perez, INFORMATICS MANAGER Help patients manage their type 2 diabetes Care Plan Help patients manage their type 2 diabetes No Ginger Perez, INFORMATICS MANAGER Patient has chronic kidney disease Care Plan Patient has chronic kidney disease No Ginger Perez, INFORMATICS MANAGER Weekly blood pressure task Care Plan Weekly blood pressure task No Ginger Perez, INFORMATICS MANAGER Patient has chronic kidney disease Care Plan Patient has chronic kidney disease No Ginger Perez INFORMATICS MANAGER Procedures Procedure Name Priority Date/Time Associated Diagnosis Comments POCT BLANKA-14 URINE DRUG SCREEN Routine 08/04/2025 11:00 AM EST Long-term current use of opiate analgesic Long-term current use of benzodiazepine XR KNEE 4+ VIEWS RIGHT Routine 07/12/2025 3:22 PM EST XR KNEE 4+ VIEWS LEFT Routine 07/12/2025 3:19 PM EST XR LUMBAR SPINE COMPLETE 4+ VIEWS Routine 07/12/2025 3:17 PM EST Chronic bilateral low back pain with sciatica, sciatica laterality unspecified POCT BLANKA-14 URINE DRUG SCREEN Routine 06/28/2025 [...] Urine Drug Screen (08/04/2025 11:00 AM EST) Only the most recent of2 resultswithin the time period is included. THC Positive(A) Negative Cocaine Screen, Urine Negative Negative Opiate Screen, Urine Negative Negative Methamphetamine Screen Urine Negative Negative Amphetamine Screen, Urine Negative Negative Benzodiazepines Screen, Urine Positive(A) Negative Barbiturate Screen, Urine Negative Negative Methadone Screen, Urine Negative Negative Buprenophine Screen, Urine Negative Negative Comment:HHAS pt on Butrans TCA, Urine Negative Negative MDMA Urine Negative Negative ng/mL Oxycodone Screen, Urine Negative Negative Phencyclidine (PCP), Urine Negative Negative Propoxyphene, Urine Negative Negative Fentanyl, Urine Negative Negative Urine Urine specimen obtained by clean catch procedure / Unknown 08/04/2025 11:00 AM EST Narrative Frida Knapp, RN - 08/04/2025 11:00 AM EST UTOX cup Lot#[id number] Exp. 08/02/26 Internal Pass Control [facility] POINT OF CARE TEST ENTER/EDIT ORDERABLES Final Result * XR Knee 4+ Views Right (07/12/2025 3:22 PM EST) Anatomical Region Laterality Modality Lower Extremities, Knee Right [facility] 07/12/2025 3:22 PM EST Narrative 07/12/2025 3:41 PM EST [address] [address] XRay Report Signed Patient: Hilda Mcmahan MR#: [id number] 5104 : 1965 Acct:[id number] Age/Sex: 60 / F ADM Date: 07/12/25 Loc: KRISH.HHCX Attending Dr: Ginger DUARTE Ordering Physician: Ginger Perez Date of Service: 07/12/25 Procedure(s): XR knee RT 4V Accession Number(s): [id number] cc: Ginger Perez INFORMATICS MANAGER Reason for Exam: PAIN EXAMINATION: XR KNEE, [...] 07/12/25 1538 DD/ 1522 TD/TT: 07/12/25 1523 [place]: Procedure Note Rosey, Mendoza - 07/12/[address] [address] XRay Report Signed Patient: Hilda McmahanMR#: [id number] : 1965Acct:[id number] Age/Sex: 60 / FADM Date: 07/12/25 Loc: HO.HHCX Attending Dr: Ginger DUARTE Ordering Physician: Ginger Perez Date of Service: 07/12/25 Procedure(s): XR knee RT 4V Accession Number(s): [id number] cc: Ginger Perez Reason for Exam: PAIN [...] 07/12/25 1538 DD/ 1522 TD/TT: 07/12/25 1523 [place]: [facility] IMG XR PROCEDURES Edited Resu lt - Final * XR Knee 4+ Views Left (07/12/2025 3:19 PM EST) Anatomical Region Laterality Modality Lower Extremities, Knee Left Radiogra phic Imaging 07/12/2025 3:19 PM EST Narrative 07/12/2025 3:34 PM EST [employer] [employer] [facility] [address] [place] [address] XRay Report Signed Patient: Hilda Mcmahan MR#: [id number] 5104 : 1965 Acct:[id number] Age/Sex: 60 / F ADM Date: 07/12/25 Loc: HO.HHCX Attending Dr: [facility] Date of Service: 07/12/25 Procedure(s): XR knee LT 4V Accession Number(s): [id number] cc: [facility] Reason for Exam: Acute on chronic bilateral [...] 07/12/25 1531 DD/ 1519 TD/TT: 07/12/25 1523 [place]: Procedure Note Daxter, Image - 07/12/[address] [address] XRay Report Signed Patient: Hilda McmahanMR#: [id number] : 1965Acct:[id number] Age/Sex: 60 / FADM Date: 07/12/25 Loc: SMITA Attending Dr: Ginger DUARTE Ordering Physician: Ginger Perez Date of Service: 07/12/25 Procedure(s): XR knee LT 4V Accession Number(s): [id number] cc: [facility] Reason for Exam: Acute on chronic bilateral [...] 07/12/25 1531 DD/ 1519 TD/TT: 07/12/25 1523 [place]: [facility] IMG XR PROCEDURES Edited Resu lt - Final * XR Lumbar Spine Complete 4+ Views (07/12/2025 3:17 PM EST) Anatomical Region Laterality Modality Spine, L-spine Radiographic Wilma ging 07/12/2025 3:17 PM EST Narrative 07/12/2025 3:40 PM EST [address] [address] XRay Report Signed Patient: Hilda Mcmahan MR#: [id number] 5104 : 1965 Acct:[id number] Age/Sex: 60 / F ADM Date: 07/12/25 Loc: SMITA Attending Dr: Ginger DUARTE Ordering Physician: AnaGinger canales Date of Service: 07/12/25 Procedure(s): XR lumbar spine 4V min Accession Number(s): [id number] cc: Ginger Perez Reason for Exam: Acute [...] by: Manny Olivia MD 07/12/2025 03:36 PM [facility] [place]ictated By: Manny Olivia MD Signed By: <Electronically signed by Manny Olivia MD in OV> 07/12/25 1536 DD/ 1517 TD/TT: 07/12/25 1523 [place]: Procedure Note Donotuseinterpreter, Image - 07/12/[address] [place] [address] XRay Report Signed Patient: Hilda Mcmahan#: [id number] : 1965Acct:[id number] Age/Sex: 60 / FADM Date: 07/12/25 Loc: HO.HHCX Attending Dr: Ginger DUARTE Ordering Physician: Ginger Perez Date of Service: 07/12/25 Procedure(s): XR lumbar spine 4V min Accession Number(s): [id number] cc: Ginger Perez Reason for Exam: Acute [...] by: Manny Olivia MD 07/12/2025 03:36 PM [facility] [place]ictated By: Manny Olivia MD Signed By: <Electronically signed by Manny Olivia MD in OV> 07/12/25 1536 DD/ 1517 TD/TT: 07/12/25 1523 [place]: [facility] INFORMATICS MANAGER IMG XR PROCEDURES Edited Resu lt - Final * Fundus Photos - OU - Both Eyes (06/08/2025 10:20 AM EDT) Jaycee Mccord, OD - 06/22/2025 2:16 PM EDT Images [...] Whole Blood 84 60 - 115 mg/dL [facility] Comment:METER #: [id number] 0Testing performed in the Endocrinology Department [address] , [address], [facility]. 06/02/2025 3:36 PM EDT 06/02/2025 3:43 PM EDT us Generic External Data Provider LAB BLOOD ORDERAB LES Final Result [facility] [address] [place] [phone] * XR Foot 3+ Views Left (05/19/2025 2:24 PM EDT) Anatomical Region Laterality Modality Lower Extremities, Foot Left Radiogra phic Imaging 05/19/2025 2:24 PM EDT Narrative 05/19/2025 2:40 PM EDT [address] [address] XRay Report Signed Patient: Hilda Mcmahan MR#: [id number] 5104 : 1965 Acct:[id number] Age/Sex: 59 / F ADM Date: 05/19/25 Loc: DAO Attending Dr: Nichelle Catalan DPM Ordering Physician: Nichelle Catalan DPM Date of Service: 05/19/25 Procedure(s): XR foot LT min 3V Accession Number(s): [id number] cc: Nichelle Catalan DPM; [facility] Reason for Exam: M79.675 - Pain in [...] 05/19/25 1436 DD/ 1424 TD/TT: 05/19/25 1420 [place]: Procedure Note Donotuseinterpreter, Image - 05/19/[address] [address] XRay Report Signed Patient: Hilda McmahanMR#: [id number] : 1965Acct:[id number] Age/Sex: 59 / FADM Date: 05/19/25 Loc: DAO Attending Dr: Nichelle Catalan DPM Ordering Physician: Nichelle Catalan DPM Date of Service: 05/19/25 Procedure(s): XR foot LT min 3V Accession Number(s): [id number] cc: Nichelle Catalan DPM; [facility] Reason for Exam: M79.675 - Pain in [...] 05/19/25 1436 DD/ 1424 TD/TT: 05/19/25 1420 [place]: [facility] External Provider IMG XR PROCEDURES Edited Result - Final * (ABNORMAL) POCT HGB A1C (03/22/2025 11:53 AM EDT) Pathologist [facility] Hemoglobin A1C 5.8(A) 4.0 - 5.7 % QC Media Lot # [id number] Lot# Expiration Date [id number] Blood 03/22/2025 11:5 3 AM EDT [facility] INFORMATICS MANAGER POINT OF CARE TEST ENTER/EDIT ORDERABLES Final Result * Colonoscopy (12/24/2024) [facility] Colonoscopy Normal Normal Comment:negative repeat 10 y ears. Historical Provider HEALTH MAINTENANCE Final Result * HIV-1/2 Antigen and Antibodies, Fourth Generation, with Reflexes (10/01/2024 9:58 AM EST) [facility] HIV AB/AG Nonreactive Nonreactive [facility] Comment:HIV-1 p24 Ag and/or HIV-1/HIV-2 Ab not detected.A test result that is nonreactive does not exclude thepossibility of exposure to or infection with HIV-1 and/orHIV-2. Nonreactive results in this assay for individualswith prior exposure to HIV-1 and/or HIV-2 may be due toantigen and antibody levels that are below the limit ofdetection of this assay.The [employer] HIV Ag/Ab Combo assay result andsupplemental assay results should be interpreted inconjunction with the patient's clinical presentation,history and other laboratory results. If the results areinconsistent with clinical evidence, additional testing issuggested to confirm the result. Blood Venous blood specimen / Unknown 10/01/2024 9:58 AM EST 10/01/2024 11:04 AM EST [facility] LAB BLOOD ORDERABLES Final Re sult Performing Organization Address [facility]/ZIP Co de Phone Number [facility] [address] [place] [phone] * (ABNORMAL) Lipid Panel, Standard (09/14/2024 1:25 PM EST) Triglycerides 123 <150 mg/dL [facility] Comment:Desirable Triglyceri de: less than 150 mg/dLBorderline High Triglyceride 150-199 mg/dLHigh Triglyceride: 200-499 mg/dLVery High Triglyceride: greater than or equal to 5OO mg/dL Cholesterol 146 <200 mg/dL [facility] Comment:Desirable Cholestero l: less than 200 mg/dLBorderline High Cholesterol: 200-239 mg/dLHigh Cholesterol: greater than 239 mg/dL LDL Cholesterol Calculated 83 <100 mg/dL [facility] Comment:Desirable LDL: less than 100 mg/dLNear Optimal/Above Optimal LDL: 110- 129 mg/dLBorderline High LDL: 130-159 mg/dLHigh LDL: 160-189 mg/dLVery High LDL: greater than or equal to 190 mg/dL HDL Cholesterol 39(L) >40 mg/dL [facility] Comment:Desirable HDL: great er than 40 mg/dL Note: This HDL assay may give artificially low results in patients with liver disease. Blood Venous blood specimen / Unknown 09/14/2024 1:25 PM EST 09/14/2024 4:07 PM EST [facility] LAB BLOOD ORDERABLES Final Re sult Performing Organization Address City/[facility]/ZIP Co de Phone Number [facility] [address] [place] [phone] * Pap Smear (09/08/2024 9:30 AM EST) Swab Cervix uteri structure / Unknown 09/08/2024 9:30 AM EST 09/09/2024 10:20 AM EST Kierra [facility] - 09/17/2024 3:06 PM EST ----- ------- Name: Hilda Mcmahan Age/Sex: 59/F : 1965 Unit#: [id number] Attend Dr: CORBIN HUGHES CNM Re09/08/24 Status: DEP REF Location: [facility] Disch: ----- ------- SPEC : [id number] RECD: 09/09/24-1019 STATUS: HENNA WILL NUM: [id number] LORI: 09/08/24-[address] [facility] [address]: CORBIN HUGHES CNM ENTERED: 09/09/24-1045 SP TYPE: Pap Smr OTHR DR: ORDERED: Pap Smear Interpretation Satisfactory for evaluation. Negative for intraepithelial lesion or malignancy. No endocervical cells seen. HPV High Risk: Negative HPV Genotyping 16: Negative HPV Genotyping 18: Negative Clinical Information LMP: Postmenopausal Previous PAP test: 2020, WNL Other history: Postmenopausal bleeding Material Received ThinPrep-Cervical ----- ------- Signed (signature on file) ATLIB Roche ([facility]) 09/17/24 1506 ----- ------- END OF REPORT Corbin Hughes CNM LAB CYTOLOGY ORDERABLES F inal Result [facility] [address] [place] [phone] * HPV mRNA E6/E7 w/Reflex to HPV Genotypes 16, 18/45 (09/08/2024 12:00 AM EST) Historical Provider MD LAB CYTOLOGY ORDERABLES F inal Result * BI Mammogram Screening Tomosynthesis Bilateral (08/27/2024 1:05 PM EST) Anatomical Region Laterality Modality Breast Bilateral Mammography 08/27/2024 1:05 PM EST Narrative 09/08/2024 4:57 PM EST [address] [place] [address] Mammography Report Signed Patient: Hilda Mcmahan MR#: [id number] : 1965 Acct:[id number] Age/Sex: 59 / F ADM Date: 08/27/24 Loc: [facility] Attending Dr: Oz Sahni MD Ordering Physician: Ginger Perez Results: 1Nega tive Date of Service: 08/27/24 Follow Up: 1 Year From Orig inal Mammogram Procedure(s): MM tomosynthesis screening BI Accession Number(s): [id number] cc: Ginger Perez INFORMATICS MANAGER EXAMINATION: MM SCREENING DIGITAL BREAST TOMOSYNTHESIS, [...] 09/08/24 1654 DD/ 1305 TD/TT: 08/27/24 1329 [place]: Procedure Note Donotuseinterpreter, Image - 09/08/2024 [facility] [address] [place] [address] Mammography Report Signed Patient: Hilda McmahanMR#: [id number] : 1965Acct:[id number] Age/Sex: 59 / FADM Date: 08/27/24 Loc: GIANLUCA Attending Dr: Oz Shani MD Ordering Physician: Ginger Perez FNPResults: 1Nega tive Date of Service: 08/27/24Follow Up: 1 Year From Orig inal Mammogram Procedure(s): MM tomosynthesis screening BI Accession Number(s): [id number] cc: Ginger Perez INFORMATICS MANAGER EXAMINATION: MM SCREENING DIGITAL BREAST TOMOSYNTHESIS, [...] 09/08/24 1654 DD/ 1305 TD/TT: 08/27/24 1329 [place]: [facility] IMG BI PROCEDURES Final Resul t * Hepatitis C Antibody with Reflex to HCV, RNA, Quantitative, Real-Time PCR (09/25/2022 12:06 PM EST) Hepatitis C Antibody NON-REACT MARRY NON-REACT MARRY [employer] Index 0.12 <1.00 [employer] [facility] Comment: HCV antibody was non-reactive. There is no laboratory evidence of HCV infection. In most cases, no further action is required. However, if recent HCV exposure is suspected, a test for HCV RNA (test code 32589) is suggested. For additional information please refer to http://education.[employer]/faq/YED53q0 (This link is being provided for informational/ educational purposes only.) Blood Venous blood specimen / Unknown 09/25/2022 12:06 PM EST 09/25/2022 12:06 PM EST Narrative [facility] - 09/27/2022 8:46 AM EST FASTING:YES FASTING: YES [facility] LAB BLOOD ORDERABLES Final Re sult [facility] [address] [facility], [place] [address] [employer] [place] [facility] [address] [facility], (Nl2) [place] [address] from Last 3 Months or Most Recently Relevant to Health Maintenance Additional Health Concerns Active Problems Noted Date Diagnosed Date Help patients manage their type 2 diabetes 07/14 Weekly blood pressure task 07/14/2025 Help patients manage their type 2 diabetes 07/14 Patient has chronic kidney disease 07/14/2025 Weekly blood pressure task 07/14/2025 Patient has chronic kidney disease 07/14/2025 Insurance [employer] C3 Care Teams Production Superintendent Hydro Relationship Specialty Start Date End Date Ginger Perez FNP [address] [place] [phone] PCP - General Family Medicine 08/13/22 [facility] Care 11/01/22
--- OUTSIDE RECORDS SUMMARY | 2025-08-04 19:11 | XMS_ITS | Encounter Summary ---
Author Organization [employer] Address [address] [facility] [address] [address] Care Team Providers Care Associate Director Data & Analytics Name Role Phone Ginger Perez [facility] Primary Care Provider Reason for Visit * Reason Comments Med Refill Encounter Details Date Type Department Care Team (Late st Contact Info) Description 01/14/2025 Refill [facility] [address] [place], [place] [phone] Donna Dow, [address] [place], [place] [phone] Mixed anxiety and depressive disorder Social History [...] Info) Description 08/18/2025 10:00 AM EST Telemedicine [facility] [address] [place] [address] Frida Knapp, RN 09/01/2025 11:30 AM EST Clinical Support [address] [address] Frida Knapp, RN 09/15/2025 2:00 PM EST Telemedicine [facility] [address] [place] [address] Frida Knapp, RN 09/29/2025 11:30 AM EST Clinical Support [address] [address] Frida Knapp, RN documented as of this encounter Visit Diagnoses Diagnosis Mixed anxiety and depressive disorder Dysthymic disorder documented in this encounter Additional Health Concerns Assessment Noted Time PHQ-9 Depression Total Score: 13 024 11:27 AM EDT documented as of this encounter Care Teams Associate Director Data & Analytics Relationship Specialty Start Date End Date Ginger Perez FNP [address] [place] [phone] PCP - General Family Medicine 08/13/22 [facility] [place] 11/01/22 documented as of this encounter
--- OUTSIDE RECORDS SUMMARY | 2025-08-04 19:12 | XMS_ITS | Encounter Summary ---
Author Organization [employer] Address [address] [facility] [address] [address] Care Team Providers Care Kitchen Designer Name Role Phone Elizabeth [facility] Primary Care Provider [phone] Reason for Visit * Reason Onset Date Comments Nurse Triage 10/07/2023 Encounter Details Date Type Department Care Team ([facility] Contact Info) Description 10/07/2023 Telephone [facility] 230 [place] [address] [facility] 230 [place] [address] Nurse Triage Social History Tobacco Use Types [...] 10/08/2023 10:37 AM Bethany Casillas MA * How difficult have these problems made it for you to do your work, take care of things at home, or get along with other people? Answer Date of Assessment Author Extremely difficult 10/08/2023 10:37 AM Melissa Scott MA * Over the past 2 weeks, [...] 10/07/2023 3:17 PM EST TC placed to [facility] CS, Ct scan rescheduled to [...] become worse. * Telephone Encounter - Brenda Vealrde - 10/07/2023 8:44 AM EST Patient calling to report is still having kidney pain . Patient speaks Finnish. Advised triage nurse will call patient back. documented in this encounter Plan of Treatment Upcoming Encounters Date Type Department Care Team (Late st Contact Info) Description 08/18/2025 10:00 AM EST Telemedicine [address] [address] Frida Knapp, OZZY 09/01/2025 11:30 AM EST Clinical Support [address] [address] Frida Knapp, RN 09/15/2025 2:00 PM EST Telemedicine [address] [address] Frida Knapp, RN 09/29/2025 11:30 AM EST Clinical Support [address] [place] [address] Frida Knapp, RN documented as of this encounter Visit Diagnoses Not on filedocumented in this encounter Additional Health Concerns Assessment Noted Time PHQ-9 Depression Total Score: 0 10/03/19 24 10:12 AM EST documented as of this encounter Care Teams Kitchen Designer Relationship Specialty Start Date End Date Ginger Perez FNP 230 [place] [address] PCP - General Family Medicine 08/13/22 [facility] [place] [place] Home Care 11/01/22 documented as of this encounter
--- OUTSIDE RECORDS SUMMARY | 2025-08-04 19:12 | XMS_ITS | Encounter Summary ---
Author Organization [employer] Address [address] [facility] 7[address] [place] [address] Care Team Providers Care Consumer Loan Manager Name Role Phone [facility] Primary Care Provider [phone] Reason for Visit * Reason Comments Med Refill Encounter Details Date Type Department Care Team ([facility] st Contact Info) Description 11/22/2023 Refill [facility] 230 [place], [place] [phone] [facility] 230 [place] [address] Type 2 diabetes mellitus with hyperglycemia, with long-term current use of insulin ([facility]) Social History Tobacco Use [...] Info) Description 08/18/2025 10:00 AM EST Telemedicine [address] [address] Frida Knapp, OZZY 09/01/2025 11:30 AM EST Clinical Support [facility] [address] [place] [address] Frida Knapp, RN 09/15/2025 2:00 PM EST Telemedicine [facility] [address] [place] [address] Frida Knapp, RN 09/29/2025 11:30 AM EST Clinical Support [address] [address] Frida Knapp, RN documented as of this encounter Visit Diagnoses Diagnosis Type 2 diabetes mellitus with hyperglycemia, with long-term current use of insulin (HCC) documented in this encounter Additional Health Concerns Assessment Noted Time PHQ-9 Depression Total Score: 0 11/13/19 24 3:08 PM EDT documented as of this encounter Care Teams Consumer Loan Manager Relationship Specialty Start Date End Date Ginger Perez FNP [address] [place] [address] PCP - General Family Medicine 08/13/22 [facility] [place] 11/01/22 documented as of this encounter
--- OUTSIDE RECORDS SUMMARY | 2025-08-04 19:12 | XMS_ITS | Encounter Summary ---
Author Organization [employer] Address [address] [facility] [address] [address] Care Team Providers Care Systematic Theology Professor Name Role Phone [facility] Primary Care Provider [phone] Encounter Details Date Type Department Care Team ([facility] st Contact Info) Description 12/20/2022 Telephone [facility] 230 [place], [place] [phone] [facility] 230 [place], [place] [phone] Social History Tobacco Use Types Packs/Day Years [...] 4:16 PM EDT Tc from [facility] requesting status on orders that needed to be sign by PCP on oct [facility] [phone] documented in this encounter Plan of Treatment Upcoming Encounters Date Type Department Care Team (Late st Contact Info) Description 08/18/2025 10:00 AM EST Telemedicine [address] [address] Frida Knapp, RN 09/01/2025 11:30 AM EST Clinical Support [address] [address] Frida Knapp, OZZY 09/15/2025 2:00 PM EST Telemedicine [address] [address] Frida Knapp, OZZY 09/29/2025 11:30 AM EST Clinical Support [address] [address] Frida Knapp, RN documented as of this encounter Visit Diagnoses Not on filedocumented in this encounter Additional Health Concerns Assessment Noted Time PHQ-9 Depression Total Score: 0 12/12/19 3:58 PM EDT documented as of this encounter Care Teams Systematic Theology Professor Relationship Specialty Start Date End Date [place] [address] PCP - General Family Medicine 08/13/22 [facility] [place] 11/01/22 documented as of this encounter
--- OUTSIDE RECORDS SUMMARY | 2025-08-04 19:12 | XMS_ITS | Encounter Summary ---
Author Organization [employer] Address 75 [facility] [address] [address] Care Team Providers Care Reference Investigator Name Role Phone [place] [facility] Primary Care Provider [phone] Reason for Visit * Reason Onset Date Comments Durable Medical Equipment 11/12/2024 Encounter Details Date Type Department Care Team ([facility] st Contact Info) Description 11/12/2024 Telephone [facility] 230 [place] [address] [facility] 230 [place] [address] Durable Medical Equipment Social History Tobacco Use [...] other 2 boxes that was never received. [phone] * Telephone Encounter - Jazzmine Dukes - 11/12/2024 2:57 PM EDT Tc from pt stating received two boxes of vanilla ensure and normally she received four boxes. documented in this encounter Plan of Treatment Upcoming Encounters Date Type Department Care Team (Late st Contact Info) Description 08/18/2025 10:00 AM EST Telemedicine [facility] [address] [place] [address] Frida Knapp RN 09/01/2025 11:30 AM EST Clinical Support [facility] [address] [place] [address] Frida Knapp, RN 09/15/2025 2:00 PM EST Telemedicine [facility] [address] [place], [place] [address]beat[place] [address] Frida Knapp, RN 09/29/2025 11:30 AM EST Clinical Support [facility] Manuela [facility] [place] [address] Frida Knapp, RN documented as of this encounter Visit Diagnoses Not on filedocumented in this encounter Additional Health Concerns Assessment Noted Time PHQ-9 Depression Total Score: 13 024 11:27 AM EDT documented as of this encounter Care Teams Reference Investigator Relationship Specialty Start Date End Date Ginger Perez FNP Manuel[facility] [place] [address] PCP - General Family Medicine 08/13/22 [facility] [place] 11/01/22 documented as of this encounter
--- OUTSIDE RECORDS SUMMARY | 2025-08-04 19:12 | XMS_ITS | Encounter Summary ---
Author Organization [employer] Address [address] [facility] [address] [place] [address] Care Team Providers Care Filler Sifter Machine Name Role Phone Lov[place] [facility] Primary Care Provider [phone] Reason for Visit * Reason Onset Date Comments Nurse Triage 08/18/2024 Encounter Details Date Type Department Care Team ([facility] st Contact Info) Description 08/18/2024 Telephone [facility] 230 [place] [address] [facility] 230 [place] [address] Nurse Triage Social History Tobacco Use Types [...] AM EST Tc from pt returning call [phone] * Telephone Encounter - Francie Au RN - 08/18/2024 11:47 AM EST Triage call Pt reports abnormal vaginal bleeding which has been occurring for last several months. Pt reports spotting started yesterday and usually this is gone in a day. This time it is the second day of this spotting and drainage is black in color. Pt denies any other symptoms. Pt reports WET MACHINE CUTTER advised to call to see provider. ASK [...] Info) Description 08/18/2025 10:00 AM EST Telemedicine [address] [address] Frida Knapp, OZZY 09/01/2025 11:30 AM EST Clinical Support [address] [address] Frida Knapp, RN 09/15/2025 2:00 PM EST Telemedicine [address] [address] Frida Knapp, RN 09/29/2025 11:30 AM EST Clinical Support [facility] [address] [place] [address] Frida Knapp, RN documented as of this encounter Visit Diagnoses Not on filedocumented in this encounter Additional Health Concerns Assessment Noted Time PHQ-9 Depression Total Score: 13 024 11:27 AM EDT documented as of this encounter Care Teams Filler Sifter Machine Relationship Specialty Start Date End Date Ginger Perez FNP [address] [place] [address] PCP - General Family Medicine 08/13/22 [facility] [place] 11/01/22 documented as of this encounter
--- OUTSIDE RECORDS SUMMARY | 2025-08-04 19:12 | XMS_ITS | Encounter Summary ---
Author Organization [employer] Address [address] [facility] [address] [address] Care Team Providers Care Tire Builder Heavy Service Name Role Phone [place] [facility] Primary Care Provider [phone] Reason for Visit * Reason Onset Date Comments Durable Medical Equipment 12/18/2022 Encounter Details Date Type Department Care Team ([facility] st Contact Info) Description 12/18/2022 Telephone [facility] 230 [place] [address] [facility] 230 [place] [address] Durable Medical Equipment Social History Tobacco Use [...] the largest size for disposable bed pads. Check Viewer suggested a script for reusable bed pads [...] Info) Description 08/18/2025 10:00 AM EST Telemedicine [address] [address] Frida Knapp, OZZY 09/01/2025 11:30 AM EST Clinical Support [address] [place] [address] Frida Knapp, OZZY 09/15/2025 2:00 PM EST Telemedicine [facility] [place] [address] Frida Knapp, OZZY 09/29/2025 11:30 AM EST Clinical Support [facility] [place] [address] Frida Knapp, RN documented as of this encounter Visit Diagnoses Not on filedocumented in this encounter Additional Health Concerns Assessment Noted Time PHQ-9 Depression Total Score: 0 12/12/19 23 3:58 PM EDT documented as of this encounter Care Teams Tire Builder Heavy Service Relationship Specialty Start Date End Date Ginger Perez FNP [place] [facility] [place] [address] PCP - General Family Medicine 08/13/22 [facility] Home Care 11/01/22 documented as of this encounter
--- OUTSIDE RECORDS SUMMARY | 2025-08-04 19:12 | XMS_ITS | Encounter Summary ---
Author Organization [employer] Address [address] [facility] [address] [address] Care Team Providers Care Radiology Rn Name Role Phone [facility] Primary Care Provider [phone] Reason for Visit * Reason Onset Date Comments Call Back Request 10/09/2024 Encounter Details Date Type Department Care Team ([facility] st Contact Info) Description 10/09/2024 Telephone [facility] 230 [place] [address] [facility] 230 [place] [address] Call Back Request Social History Tobacco Use [...] the past 12 months, has t he [employer], gas, oil or water [employer] threatened to shut off services in your [...] refuses to perform it. Any questions contact: [phone] documented in this encounter Plan of Treatment Upcoming Encounters Date Type Department Care Team (Late st Contact Info) Description 08/18/2025 10:00 AM EST Telemedicine [facility] [place] [address] Frida Knapp, RN 09/01/2025 11:30 AM EST Clinical Support [facility] [place] [address] Frida Knapp, RN 09/15/2025 2:00 PM EST Telemedicine [facility] [place] [address] Frida Knapp, OZZY 09/29/2025 11:30 AM EST Clinical Support [facility] [place] [address] Frida Knapp, RN documented as of this encounter Visit Diagnoses Not on filedocumented in this encounter Additional Health Concerns Assessment Noted Time PHQ-9 Depression Total Score: 13 024 11:27 AM EDT documented as of this encounter Care Teams Radiology Rn Relationship Specialty Start Date End Date Ginger Perez FNP [facility] [place] [address] PCP - General Family Medicine 08/13/22 [facility] [place] 11/01/22 documented as of this encounter
--- OUTSIDE RECORDS SUMMARY | 2025-08-04 19:12 | XMS_ITS | Encounter Summary ---
Author Organization [employer] Address [address] [facility] [address] [address] Care Team Providers Care Air Hose Coupler Name Role Phone [facility] Primary Care Provider [phone] Encounter Details Date Type Department Care Team (Late Contact Info) Description 08/22/2022 Refill [facility] 230 [place], [place] [phone] [facility] 230 [place] [address] Muscle spasm Social History Tobacco Use Types [...] 08/18/2025 10:00 AM EST Telemedicine [facility] MED[facility]INE 230 [place] [address] Frida Knapp, RN 09/01/2025 11:30 AM EST Clinical Support [facility] [address] Frida Knapp, RN 09/15/2025 2:00 PM EST Telemedicine [place] [address] Frida Knapp, RN 09/29/2025 11:30 AM EST Clinical Support [place] [address] Frida Knapp, RN documented as of this encounter Visit Diagnoses Diagnosis Muscle spasm Spasm of muscle documented in this encounter Additional Health Concerns Assessment Noted Time PHQ-9 Depression Total Score: 9 08/21/20 22 10:14 AM EST documented as of this encounter Care Teams Air Hose Coupler Relationship Specialty Start Date End Date Ginger Perez FNP [place] [address] PCP - General Family Medicine 08/13/22 [facility] Home Care 11/01/22 documented as of this encounter
--- OUTSIDE RECORDS SUMMARY | 2025-08-04 19:12 | XMS_ITS | Encounter Summary ---
Author Organization [employer] Address [address] [facility] [address] [place] [address] Care Team Providers Care Magneto Electrician Name Role Phone KyleGinger canales [facility] Primary Care Provider Encounter Details Date Type Department Care Team ([facility] st Contact Info) Description 04/19/2025 Telephone [facility] [address] [place], [place] [phone] Kyle [facility] [address] [place], [place] [phone] Social History Tobacco Use Types Packs/Day Years [...] Info) Description 08/18/2025 10:00 AM EST Telemedicine [facility] [address] [place] [id number] Frida Knapp, OZZY 09/01/2025 11:30 AM EST Clinical Support [address] [address] Frida Knapp, RN 09/15/2025 2:00 PM EST Telemedicine [address] [address] Frida Knapp, RN 09/29/2025 11:30 AM EST Clinical Support [address] [address] Frida Knapp, RN documented as of this encounter Visit Diagnoses Not on filedocumented in this encounter Additional Health Concerns Assessment Noted Time PHQ-9 Depression Total Score: 13 024 11:27 AM EDT documented as of this encounter Care Teams Magneto Electrician Relationship Specialty Start Date End Date Ginger Perez FNP [address] [place] [id number] PCP - General Family Medicine 08/13/22 [facility] [place] 11/01/22 documented as of this encounter
--- OUTSIDE RECORDS SUMMARY | 2025-08-04 19:12 | XMS_ITS | Encounter Summary ---
Author Organization [employer] Address [address] [facility] [address] [place] [address] Care Team Providers Care Customer Relations Assistant Name Role Phone [place] [facility] Primary Care Provider [phone] Reason for Visit * Reason Onset Date Comments Durable Medical Equipment 12/18/2022 Encounter Details Date Type Department Care Team ([facility] st Contact Info) Description 12/18/2022 Telephone [facility] [address] [place] [address] [facility] [address] [place] [address] Durable Medical Equipment Social History Tobacco Use [...] - 12/18/2022 2:22 PM EDT Tc from [facility] from [facility] requesting a new nebulizer machine . States pt informed old one stopped working . documented in this encounter Plan of Treatment Upcoming Encounters Date Type Department Care Team (Late st Contact Info) Description 08/18/2025 10:00 AM EST Telemedicine [address] [address] Frida Knapp, OZZY 09/01/2025 11:30 AM EST Clinical Support [address] [address] Frida Knapp, OZZY 09/15/2025 2:00 PM EST Telemedicine [address] [address] Frida Knapp, OZZY 09/29/2025 11:30 AM EST Clinical Support [address] [address] Frida Knapp, RN documented as of this encounter Visit Diagnoses Not on filedocumented in this encounter Additional Health Concerns Assessment Noted Time PHQ-9 Depression Total Score: 0 12/12/19 23 3:58 PM EDT documented as of this encounter Care Teams Customer Relations Assistant Relationship Specialty Start Date End Date [place] [address] PCP - General Family Medicine 08/13/22 [facility] [place] Home Care 11/01/22 documented as of this encounter
== END 2025-08-04 18:18 | disposition home or self-care (01) ==
LOC: HO.HHCLNP 18:17
PROVIDERS: Visit Provider Registered Nurse
DX: Z51.81 Encounter for therapeutic drug level monitoring (principal); Z79.891 Long term (current) use of opiate analgesic; Z79.899 Other long term (current) drug therapy
CPT/HCPCS: 80348; 80362